=== PATIENT | female | born 1955 | race Caucasian/White ===

== ENCOUNTER 2016-06-04 00:46 | Observation (INO) | payer BC, OTHER ==
[2016-06-04] MEDS ORDERED: methylPREDNISolone NA SUCC 125 MG/2 ML VIAL IVPB ONE (01:14)
[2016-06-04] MEDS ORDERED: MAGNESIUM SULF 50% (8.12 MEQ/2 ML-1 GM VIAL) IVPB ONE (01:14)
[2016-06-04] MEDS ORDERED: ALBUTEROL SO4 2.5/IPRATROPIUM 0.5 INH SOL 3 ML VIAL.NEB. NEB STA ×2 (01:14)
--- NOTE | 2016-06-04 01:14 | PDOC ---
History of Present Illness - General History Source: Patient <David Torres - Last Filed: 06/04/16 02:44> - General History Source: Patient Exam Limitations: No Limitations - History of Present Illness Initial Comments: 06/04/16 01:33 The patient is a 60 year old female with significant past medical history of sarcoidosis, hypertension and hyperlipidemia who presents to the ED BIBA from home for SOB and wheezing just prior to arrival. Patient reports she was in her usual state of health when she was falling asleep and suddenly woke up with chest tightness and heard herself wheezing. She states using her inhaler with no improvement and decided to contact EMS. Patient was given an inhaler (prn) because she occasionally gets SOB secondary to her sarcoidosis. The patient denies fever, chills, cough, diaphoresis, and chest pain. The patient denies abdominal pain, nausea, vomiting, and diarrhea. Allergies: amoxicillin trihydrate, potassium clavulanate Social History: No alcohol, tobacco, or drug use reported. Past Surgical History: s/p pacemaker, left hip fx s/p repair PCP: Dr. Darryl Dennis <Candida Ren - Last Filed: 06/04/16 04:38> - General Chief Complaint: Asthma Stated Complaint: DIFF BREATHING Time Seen by Provider: 06/04/16 01:13 Past History - Past Medical History Anemia: No Asthma: No Cancer: No Cardiac Disorders: No CVA: No COPD: No CHF: No Dementia: No Diabetes: No GI Disorders: No Disorders: No HTN: Yes Hypercholesterolemia: Yes Liver Disease: No Seizures: No Thyroid Disease: No - Surgical History Abdominal Surgery: No Appendectomy: No Cardiac Surgery: Yes (defibulator - pacemaker) Cholecystectomy: No Lung Surgery: No Neurologic Surgery: No Orthopedic Surgery: Yes (fracture left hip) - Psycho/Social/Smoking Cessation Hx Suicidal Ideation: No Smoking History: Never smoked Have you smoked in the past 12 months: No Number of Cigarettes Smoked Daily: 0 Information on smoking cessation initiated: No Hx Alcohol Use: No Drug/Substance Use Hx: No <VladislavDavid zuñiga - Last Filed: 06/04/16 02:44> <Candida Ren - Last Filed: 06/04/16 04:38> - Past Medical History Allergies/Adverse Reactions: Allergies Allergy/AdvReac Type Severity Reaction Status Date / Time amoxicillin trihydrate AdvReac Severe Verified 02/08/15 09:55 [From Augmentin] potassium clavulanate AdvReac Severe Verified 02/08/15 09:55 [From Augmentin] Home Medications: Ambulatory Orders Acetazolamide 12.5 gm PO DAILY 02/15/15 Difluprednate [Durezol] 5 ml TID 02/15/15 Hydrochlorothiazide [Hctz -] 12.5 mg PO DAILY 02/15/15 Prednisone 5 mg PO BID 02/15/15 Tolterodine Tartrate 2 mg PO DAILY 02/15/15 Cetirizine HCl [Zyrtec -] 5 mg PO DAILY 03/08/15 Cholecalciferol (Vitamin D3) [Vitamin D3] 2,000 unit PO DAILY 03/08/15 Ibuprofen [Advil -] 2 tab PO Q6H 03/08/15 Iron 65 mg PO DAILY 03/29/15 Review of Systems - Review of Systems Able to Perform ROS?: Yes Comments:: 06/04/16 01:33 CONSTITUTIONAL: Absent: fever, no chills, no fatigue EYES: Absent: visual changes ENT: Absent: ear pain, no sore throat CARDIOVASCULAR: Absent: chest pain, no palpitations RESPIRATORY: +chest tightness, SOB, wheezing Absent: cough GI: Absent: abdominal pain, no nausea, no vomiting, no constipation, no diarrhea GENITOURINARY: Absent: dysuria, no frequency, no hematuria MUSCULOSKELETAL: Absent: back pain, no arthralgia, no myalgia SKIN: Absent: rash NEURO: Absent: headache <Candida Ren - Last Filed: 06/04/16 04:38> *Physical Exam - Vital Signs Last Vital Signs Temp Pulse Resp BP Pulse Ox 98.7 F 109 H 16 121/69 100 06/04/16 01:00 06/04/16 01:00 06/04/16 01:00 06/04/16 01:00 06/04/16 01:00 <David Torres - Last Filed: 06/04/16 02:44> - Vital Signs Last Vital Signs Temp Pulse Resp BP Pulse Ox 98.7 F 109 H 16 121/69 100 06/04/16 01:00 06/04/16 01:00 06/04/16 01:00 06/04/16 01:00 06/04/16 01:00 - Physical Exam Comments: 06/04/16 01:33 GENERAL: Well-appearing, well-nourished. No apparent distress. HEENT: Normocephalic, atraumatic. PERRL, EOM intact. CARDIOVASCULAR: Normal S1, S2. Regular rate and rhythm. PULMONARY: Mild respiratory distress. Mild conversational dyspnea. Diffuse bilateral wheezing. No retractions. ABDOMEN: Soft, non-distended, non-tender. EXTREMITIES: Normal ROM in all four extremities. No gross deformities. SKIN: Warm, dry. No rash NEUROLOGICAL: No focal neurological deficits. <Candida Ren - Last Filed: 06/04/16 04:38> Heart Score/ECG Review - ECG Impressions Comment:: 06/04/16 04:37 Atrial-sensed ventricular-paced rhythm @94bpm Abnormal ECG <Candida Ren - Last Filed: 06/04/16 04:38> ED Treatment Course - LABORATORY CBC & Chemistry Diagram: 06/04/16 01:23 06/04/16 01:23 <David Torres - Last Filed: 06/04/16 02:44> - LABORATORY CBC & Chemistry Diagram: 06/04/16 01:23 06/04/16 01:23 - RADIOLOGY Radiograph Interpretation: 06/04/16 02:40 EXAM: X-ray chest Reviewed by Imaging apron cleaner: FINDINGS: Heart size is not well evaluated on portable technique. Bipolar pacemaker and leads are noted. There is mild to moderate pulmonary edema. No focal consolidations or pleural effusion. IMPRESSION: Mild to moderate pulmonary edema. <Candida Ren - Last Filed: 06/04/16 04:38> Medical Decision Making - Medical Decision Making 06/04/16 02:44 Dr. Torres: The scribe's documentation has been prepared under my direction and personally reviewed by me in its entirery. I confirm that the note above accurately reflects all work, treatment, procedures, and medical decision making performed by me. Pt found to be in pulmonary edema on chest xray. Pt has never had fluid in her lung. Pt to be admitted to tele <David Torres - Last Filed: 06/04/16 02:44> *DC/Admit/Observation/Transfer - Discharge Dispostion Admit: Yes <David Torres - Last Filed: 06/04/16 02:44> - Attestations Scribe Attestion: 06/04/16 01:33 Documentation prepared by Candida Ren, acting as emergency medical technician for David Torres MD <Candida Ren - Last Filed: 06/04/16 04:38> Diagnosis at time of Disposition: Pulmonary edema Qualifiers: Chronicity: acute Qualified Code(s): J81.0 - Acute pulmonary edema - Referrals
[2016-06-04] MEDS ORDERED: MAGNESIUM SULF 50% (8.12 MEQ/2 ML-1 GM VIAL) ONE (01:28)
[2016-06-04] MEDS ORDERED: ALBUTEROL SO4 2.5/IPRATROPIUM 0.5 INH SOL 3 ML VIAL.NEB. NEB ONE (01:29)
[2016-06-04] MEDS ORDERED: methylPREDNISolone NA SUCC 125 MG/2 ML VIAL ONE (01:29)
[2016-06-04 01:41] LABS: BASOPHIL 0.6 % (0-2.0); EOSINOPHIL 0.7 % (0-4.5); MCH 24.7 pg (25.7-33.7); MCHC 31.6 g/dl (32.0-36.0); MEAN CELL VOLUME 78.2 fl (80-96); NEUTROPHILS 80.8 % (42.8-82.8); PLATELET COUNT 148 K/MM3 (134-434); RDW 18.7 % (11.6-15.6)
[2016-06-04 02:20] LABS: INR 1.11 (0.82-1.09); PROTHROMBIN TIME (PATIENT) 12.2 SEC (9.98-11.88)
[2016-06-04 02:30] LABS: ALBUMIN 3.2 g/dl (3.4-5.0); ANION GAP 10 (8-16); BILIRUBIN,TOTAL 0.4 mg/dL (0.2-1.0); CALCIUM 8.4 mg/dL (8.5-10.1); CO2 28 mmol/L (21-32); COCKROFT - GAULT 119.1785; CREATININE 0.7 mg/dL (0.55-1.02); GLUCOSE,RANDOM 104 mg/dL (74-106); SGOT/AST 27 U/L (15-37); SGPT/ALT 39 U/L (12-78); TOT PROT 6.4 g/dl (6.4-8.2)
[2016-06-04 02:33] LABS: ALK PHOS 114 U/L (45-117); TROPONIN I 0.12 ng/ml (0.00-0.05)
[2016-06-04] MEDS ORDERED: FUROSEMIDE 40 MG/4 ML INJECTABLE VIAL IVPUSH ONE (02:43)
[2016-06-04] MEDS ORDERED: FUROSEMIDE 40 MG/4 ML INJECTABLE VIAL ONE ×2 (03:00→21:46)
[2016-06-04] MEDS ORDERED: POTASSIUM CHLORIDE TABS 20 MEQ TABLET.ER (FP) PO ONE ×2 (03:05→03:24)
[2016-06-04] MEDS ORDERED: ENOXAPARIN NA (PORCINE) 80 MG/0.8 ML DISP.SYRIN SQ ONE ×2 (04:15→04:44)
--- NOTE | 2016-06-04 04:24 | HP ---
CHIEF COMPLAINT:SOB worsening 1-2 days PCP: HISTORY OF PRESENT ILLNESS: 60 year old female with history of sarcoidosis presents to the emergency department c/o 2 days history of worsening SOB associated with wheezing,leg edema and orthopnea. Denies chest pain . 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 She does not recall having recent cardiac workup or pulmonary function tests. Recent Travel: NO PAST MEDICAL HISTORY: Hyperlipidemia Sarcoidosis Cataracts Uveitis PAST SURGICAL HISTORY: PPM placement Cholecystectomy Social History: Smoking:NO Alcohol:NO Drugs: NO Family History: Allergies amoxicillin trihydrate [From Augmentin] Adverse Reaction (Severe, Verified 02/08 09:55) pt states - bells palsy after recieving medication potassium clavulanate [From Augmentin] Adverse Reaction (Severe, Verified 09:55) pt states - bells palsy after recieving medication HOME MEDICATIONS: Home Medications Medication Instructions Recorded Acetazolamide 12.5 gm PO DAILY 02/15/15 Difluprednate [Durezol] 5 ml TID 02/15/15 Hydrochlorothiazide [Hctz -] 12.5 mg PO DAILY 02/15/15 Prednisone 5 mg PO BID 02/15/15 Tolterodine Tartrate 2 mg PO DAILY 02/15/15 Cetirizine HCl [Zyrtec -] 5 mg PO DAILY 03/08/15 Cholecalciferol (Vitamin D3) 2,000 unit PO DAILY 03/08/15 [Vitamin D3] Ibuprofen [Advil -] 2 tab PO Q6H 03/08/15 Iron 65 mg PO DAILY 03/29/15 REVIEW OF SYSTEMS CONSTITUTIONAL: Absent: fever, chills, diaphoresis, generalized weakness, malaise, loss of appetite, weight change HEENT: Absent: rhinorrhea, nasal congestion, throat pain, throat swelling, difficulty swallowing, mouth swelling, ear pain, eye pain, visual changes CARDIOVASCULAR: Absent: chest pain, syncope, palpitations, irregular heart rate, lightheadedness , peripheral edema RESPIRATORY: Absent: cough, shortness of breath, dyspnea with exertion, orthopnea, wheezing, stridor, hemoptysis GASTROINTESTINAL: Absent: abdominal pain, abdominal distension, nausea, vomiting, diarrhea, constipation, melena, hematochezia GENITOURINARY: Absent: dysuria, frequency, urgency, hesitancy, hematuria, flank pain, genital pain MUSCULOSKELETAL: Absent: myalgia, arthralgia, joint swelling, back pain, neck pain SKIN: Absent: rash, itching, pallor HEMATOLOGIC/IMMUNOLOGIC: Absent: easy bleeding, easy bruising, lymphadenopathy, frequent infections ENDOCRINE: Absent: unexplained weight gain, unexplained weight loss, heat intolerance, cold intolerance NEUROLOGIC: Absent: headache, focal weakness or paresthesias, dizziness, unsteady gait, seizure, mental status changes, bladder or bowel incontinence PSYCHIATRIC: Absent: anxiety, depression, suicidal or homicidal ideation, hallucinations. PHYSICAL EXAMINATION Vital Signs - 24 hr 06/04/16 03:04 Pulse Rate [ 92 H Left] Respiratory 20 Rate Blood Pressure 111/81 [Left Arm] O2 Sat by Pulse 98 Oximetry (%) GENERAL: Awake, alert, and fully oriented, in no acute distress. HEAD: Normal with no signs of trauma. EYES: Pupils equal, round and reactive to light, extraocular movements intact, sclera anicteric, conjunctiva clear. No lid lag. EARS, NOSE, THROAT: Ears normal, nares patent, oropharynx clear without exudates. Moist mucous membranes. NECK: Normal range of motion, supple without lymphadenopathy, JVD, or masses. LUNGS: Breath sounds equal, clear to auscultation bilaterally. No wheezes, and no crackles. No accessory muscle use. HEART: Regular rate and rhythm, normal S1 and S2 without murmur, rub or gallop. ABDOMEN: Soft, nontender, not distended, normoactive bowel sounds, no guarding, no rebound, no masses. No hepatomegaly or splenomegaly. MUSCULOSKELETAL: Normal range of motion at all joints. No bony deformities or tenderness. No CVA tenderness. UPPER EXTREMITIES: 2+ pulses, warm, well-perfused. No cyanosis. No clubbing. No peripheral edema. LOWER EXTREMITIES: 2+ pulses, warm, well-perfused. No calf tenderness. 1 + edema b/l LE NEUROLOGICAL: Cranial nerves II-XII intact. Normal speech. Normal gait. PSYCHIATRIC: Cooperative. Good eye contact. Appropriate mood and affect. SKIN: Warm, dry, normal turgor, Abnormal Lab Results 06/04/16 06/04/16 01:23 01:23 MCV 78.2 L MCHC 31.6 L RDW 18.7 H D Sodium 146 H Potassium 3.4 L Chloride 108 H Calcium 8.4 L Troponin I 0.12 H B-Natriuretic Peptide 2680.42 H Albumin 3.2 L CXR shows b/l pulmonary vascular congestion EKG is pending ASSESSMENT/PLAN: 1. Dyspnea - likely secondary to pulmonary edema precipitated by acute on chronic diastolic dysfunction . No prior Echo available . Responded well to diuretics - C/w I&O - Echo - IV lasix -monitor BP q 4 hrs -cardiology evaluation - nebulizers 2. Elevated troponin - possibly secondary to CHF , EKG- paced rythm, no acute changes - f/u EKG - ASA - trend enzymes 3. History of sarcoidosis- no wheezing . Last follow up for PFT 8 years ago . - nebs PRN - outpatient follow up for PFT 4.DVT PPX - refused Lovenox Observation / Telemetry Visit type - Emergency Visit Emergency Visit: Yes ED Registration Date: 06/04/16 Care time: The patient presented to the Emergency Department on the above date and was hospitalized for further evaluation of their emergent condition. - New Patient This patient is new to me today: Yes Date on this admission: 06/04/16 - Critical Care Critical Care patient: No
[2016-06-04] MEDS ORDERED: ALBUTEROL SO4 2.5/IPRATROPIUM 0.5 INH SOL 3 ML VIAL.NEB. NEB PRN ×2 (04:28→05:19)
[2016-06-04] MEDS ORDERED: PATIENT'S OWN MEDICATION (NON-FORMULARY) (Difluprednate [Durezol] 5 ML) IO SCH (06:00)
--- NOTE | 2016-06-04 08:49 | CON.CARD ---
Consult - History of Present Illness History of Present Illness: The patient is a 60 year old female with significant past medical history of sarcoidosis, hypertension and hyperlipidemia who presents to the ED BIBA from home for SOB and wheezing just prior to arrival. Patient reports she was in her usual state of health when she was falling asleep and suddenly woke up with chest tightness and heard herself wheezing. She states using her inhaler with no improvement and decided to contact EMS. Patient was given an inhaler (prn) because she occasionally gets SOB secondary to her sarcoidosis. The patient denies fever, chills, cough, diaphoresis, and chest pain. The patient denies abdominal pain, nausea, vomiting, and diarrhea. Allergies: amoxicillin trihydrate, potassium clavulanate Social History: No alcohol, tobacco, or drug use reported. Past Surgical History: s/p pacemaker, left hip fx s/p repair PCP: Dr. Darryl Dennis - Alcohol/Substance Use Hx Alcohol Use: No - Smoking History Smoking history: Never smoked Have you smoked in the past 12 months: No Aproximately how many cigarettes per day: 0 Home Medications - Allergies Allergies/Adverse Reactions: Allergies Allergy/AdvReac Type Severity Reaction Status Date / Time amoxicillin trihydrate AdvReac Severe Verified 02/08/15 09:55 [From Augmentin] potassium clavulanate AdvReac Severe Verified 02/08/15 09:55 [From Augmentin] - Home Medications Home Medications: Ambulatory Orders Acetazolamide 12.5 gm PO DAILY 02/15/15 Difluprednate [Durezol] 5 ml TID 02/15/15 Hydrochlorothiazide [Hctz -] 12.5 mg PO DAILY 02/15/15 Prednisone 10 mg PO DAILY 02/15/15 Tolterodine Tartrate 2 mg PO DAILY 02/15/15 Cetirizine HCl [Zyrtec -] 5 mg PO DAILY 03/08/15 Cholecalciferol (Vitamin D3) [Vitamin D3] 2,000 unit PO DAILY 03/08/15 Ibuprofen [Advil -] 2 tab PO Q6H 03/08/15 Iron 65 mg PO DAILY 03/29/15 Panexitrol 1 tab PO DAILY 06/04/16 Vital Signs: Vital Signs Temperature 98.1 F 06/04/16 06:06 Pulse Rate 88 06/04/16 06:06 Respiratory Rate 17 06/04/16 06:06 Blood Pressure 135/73 06/04/16 06:06 O2 Sat by Pulse Oximetry (%) 99 06/04/16 06:06 - Other Data Labs, Other Data: INR, PTT INR 1.11 (0.82-1.09) 06/04/16 01:23
[2016-06-04] MEDS ORDERED: TOLTERODINE TARTRATE 2 MG TABLET PO SCH ×2 (10:00)
[2016-06-04] MEDS ORDERED: predniSONE 5 MG TABLET (UD) PO SCH (10:00)
[2016-06-04] MEDS ORDERED: methylPREDNISolone NA SUCC 40 MG/1 ML VIAL ONE ×2 (10:19→19:15)
[2016-06-04] MEDS: methylPREDNISolone NA SUCC 40 MG/1 ML VIAL IVPB SCH ×2 (10:44→19:12)
[2016-06-04] MEDS: ASPIRIN 81 MG CHEWABLE TABLETS PO SCH (10:44)
--- NOTE | 2016-06-04 11:32 | PN ---
Progress Note (short form) - Note Progress Note: went to see the patient in the ER. Patient states dr. Loving is her defective cigarette slitter and would like to see him. Consultation order was placed with dr. Fabienne RICE
--- NOTE | 2016-06-04 12:58 | CON.CARD ---
Consult Consult Specialty:: Cardiology Referred by:: Hospitalist Medicine Reason for Consultation:: CHF - History of Present Illness Chief Complaint: Dyspnea History of Present Illness: 60 year old female with history of sarcoidosis with uveitis, syncope referable to [place] s/p Medtronic ICD, mod MVP with mod MR, TR and mod-severe LV systolic dysfunction presents to the emergency department c/o 2 days history of worsening SOB associated with wheezing, leg edema, exercise intolerance and orthopnea. Denies chest pain, near or true syncope, palpitations, PND. 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 She does not recall having recent cardiac workup or pulmonary function tests, no ICD discharge, generator change 1 year ago. She has been taking ibuprofen q4 and admits to dietary indiscretion. Recent Travel: NO PAST MEDICAL HISTORY: systolic dysfunction Sarcoidosis Cataracts Uveitis PAST SURGICAL HISTORY: PPM placement Cholecystectomy Social History: Smoking:NO Alcohol:NO Drugs: NO Family History: Allergies amoxicillin trihydrate [From Augmentin] Adverse Reaction (Severe, Verified 02/08 09:55) pt states - bells palsy after recieving medication potassium clavulanate [From Augmentin] Adverse Reaction (Severe, Verified 09:55) pt states - bells palsy after recieving medication - History Source History Provided By: Patient Limitations to Obtaining History: No Limitations - Past Medical History Cardio/Vascular: Yes: CHF, HTN Pulmonary: Yes: Other (Sarcoid) - Past Surgical History Past Surgical History: Yes: Permanent Pacemaker - Alcohol/Substance Use Hx Alcohol Use: No - Smoking History Smoking history: Never smoked Have you smoked in the past 12 months: No Aproximately how many cigarettes per day: 0 Home Medications - Allergies Allergies/Adverse Reactions: Allergies Allergy/AdvReac Type Severity Reaction Status Date / Time amoxicillin trihydrate AdvReac Severe Verified 02/08/15 09:55 [From Augmentin] potassium clavulanate AdvReac Severe Verified 02/08/15 09:55 [From Augmentin] - Home Medications Home Medications: Ambulatory Orders Acetazolamide 12.5 gm PO DAILY 02/15/15 Difluprednate [Durezol] 5 ml TID 02/15/15 Hydrochlorothiazide [Hctz -] 12.5 mg PO DAILY 02/15/15 Prednisone 10 mg PO DAILY 02/15/15 Tolterodine Tartrate 2 mg PO DAILY 02/15/15 Cetirizine HCl [Zyrtec -] 5 mg PO DAILY 03/08/15 Cholecalciferol (Vitamin D3) [Vitamin D3] 2,000 unit PO DAILY 03/08/15 Ibuprofen [Advil -] 2 tab PO Q6H 03/08/15 Iron 65 mg PO DAILY 03/29/15 Panexitrol 1 tab PO DAILY 06/04/16 Review of Systems - Review of Systems Cardiovascular: reports: Edema Respiratory: reports: Exercise Intolerance, SOB on Exertion Vital Signs: Vital Signs Temperature 98.1 F 06/04/16 06:06 Pulse Rate 88 06/04/16 06:06 Respiratory Rate 17 06/04/16 06:06 Blood Pressure 135/73 06/04/16 06:06 O2 Sat by Pulse Oximetry (%) 99 06/04/16 06:06 Constitutional: Yes: No Distress, Calm Neck: Yes: Supple Respiratory: Yes: Regular, Dullness, On Nasal O2 Gastrointestinal: Yes: Normal Bowel Sounds, Soft, Abdomen, Obese Cardiovascular: Yes: Regular Rate and Rhythm JVD: No Carotid Bruit: No Heart Sounds: Yes: S1, S2 Murmur: Yes: Systolic Murmur, Grade 2 Edema: Yes Edema: LLE: 2+, RLE: 2+ - Other Data Labs, Other Data: INR, PTT INR 1.11 (0.82-1.09) 06/04/16 01:23 Troponin, BNP 06/04/16 08:15 Troponin I 0.10 H Troponin, BNP 06/04/16 08:15 Troponin I 0.10 H A-sensed V-paced @ 94 similar to previous 04/2015 Ejection Fraction %: LVEF < 40 % Imaging - Results Chest X-ray: Report Reviewed (Prominent pulmonary vasculature) Problem List - Problems (1) Acute on chronic systolic (congestive) heart failure Code(s): I50.23 - ACUTE ON CHRONIC SYSTOLIC (CONGESTIVE) HEART FAILURE (2) Sarcoidosis Code(s): D86.9 - SARCOIDOSIS, UNSPECIFIED (3) Hypertensive cardiomyopathy Code(s): I11.9 - HYPERTENSIVE HEART DISEASE WITHOUT HEART FAILURE I42.9 - CARDIOMYOPATHY, UNSPECIFIED Qualifiers: Heart failure presence: with heart failure Qualified Code(s): I11.0 - Hypertensive heart disease with heart failure (4) Mitral valvular prolapse Code(s): I34.1 - NONRHEUMATIC MITRAL (VALVE) PROLAPSE (5) Presence of single implantable cardioverter-defibrillator (ICD) Code(s): Z95.810 - PRESENCE OF AUTOMATIC (IMPLANTABLE) CARDIAC DEFIBRILLATOR (6) Subendocardial ischemia Code(s): I24.8 - OTHER FORMS OF ACUTE ISCHEMIC HEART DISEASE (7) Non-compliance Code(s): Z91.19 - PATIENT'S NONCOMPLIANCE W OTH MEDICAL TREATMENT AND REGIMEN Assessment/Plan 1. Acute on chronic systolic failure and subendocardial ischemic injury in context of NSAID, med, diet indiscretion 2. Sarcoidosis of heart post Medtronic ICD and generator change 1 year ago 3. HTN/HCVD 4. MVP with MR P:1. Echocardiogram to assess LV and valve fxn, check 2. Interrogate ICD, if chronically RV paced, would benefit from upgrade to FLOOR SANDER- D which would also decrease severity of MR 3. IV diuresis and add Aldactone 25 qd with monitor diuretic response, renal fxn and electrolytes, replete K 4. Resume carvedilol 3.125 bid, Altace 2.5 qd with uptitration as hemodynamics tolerate 5. Pulm f/u for sarcoid management, continue chronic steroids, emphasize importance of compliance and f/u 6. Thank you for consultative opportunity
[2016-06-04 14:09] VITALS: BMI 34.7
--- NOTE | 2016-06-04 14:16 | CON.PULM ---
Consult - History of Present Illness Chief Complaint: Shortness of breath History of Present Illness: 60 year old female with acute onset severe shortness of breath and wheezing. Pt was diagnosed with sarcoidosis in 2000-had bronchoscopy. Pt originally presented with neurological symptoms and uveitis. Pt not seen for for more than 5 yeas. She has been maintained on Prednisone 10 mg daily by her neurologist and management manager though recently attempts at weaning off Prednisone have been started. PMH CHB s/p Medtronic ICD, mod MVP with mod MR, TR and mod-severe LV systolic dysfunction - Past Medical History Cardio/Vascular: Yes: CHF, HTN Pulmonary: Yes: Other (Sarcoid) ...: No - Past Surgical History Past Surgical History: Yes: Permanent Pacemaker - Alcohol/Substance Use Hx Alcohol Use: No - Smoking History Smoking history: Never smoked Have you smoked in the past 12 months: No Aproximately how many cigarettes per day: 0 If you are a former smoker, when did you quit?: 36 YRS AGO Home Medications - Allergies Allergies/Adverse Reactions: Allergies Allergy/AdvReac Type Severity Reaction Status Date / Time amoxicillin trihydrate AdvReac Severe Verified 02/08/15 09:55 [From Augmentin] potassium clavulanate AdvReac Severe Verified 02/08/15 09:55 [From Augmentin] - Home Medications Home Medications: Ambulatory Orders Acetazolamide 12.5 gm PO DAILY 02/15/15 Difluprednate [Durezol] 1 drop OU BID 02/15/15 Hydrochlorothiazide [Hctz -] 12.5 mg PO DAILY 02/15/15 Prednisone 10 mg PO DAILY 02/15/15 Tolterodine Tartrate 2 mg PO DAILY 02/15/15 Cetirizine HCl [Zyrtec -] 5 mg PO DAILY 03/08/15 Cholecalciferol (Vitamin D3) [Vitamin D3] 2,000 unit PO DAILY 03/08/15 Ibuprofen [Advil -] 2 tab PO Q6H 03/08/15 Iron 65 mg PO DAILY 03/29/15 Atorvastatin Ca [Lipitor] 20 mg PO HS 06/04/16 Carvedilol 3.125 mg PO BID 06/04/16 Gabapentin 200 mg PO HS 06/04/16 Omeprazole 20 mg PO BID 06/04/16 Panexitrol 1 tab PO DAILY 06/04/16 Ramipril 1.25 mg PO DAILY 06/04/16 Physical Exam Vital Sings: Vital Signs Temperature 98.5 F 06/04/16 12:40 Pulse Rate 90 06/04/16 12:40 Respiratory Rate 20 06/04/16 12:40 Blood Pressure 127/52 06/04/16 12:40 O2 Sat by Pulse Oximetry (%) 95 06/04/16 12:40 Constitutional: Yes: No Distress Eyes: No: Sclera Icterus HENT: Yes: Atraumatic, Normocephalic Neck: Yes: Supple, Trachea Midline Cardiovascular: Yes: Regular Rate and Rhythm. No: JVD Respiratory: Yes: CTA Bilaterally ...Percussion: No: Dullnes, Hyperresonance ...Clubbing: No Gastrointestinal: Yes: Soft. No: Hepatomegaly, Splenomegaly, Tenderness Edema: LLE: 2+, RLE: 2+ Neurological: Yes: Alert, Oriented Imaging - Results Chest X-ray: Report Reviewed, Image Reviewed (Diffuse intersitial changes, AICD) Problem List - Problems (1) Acute on chronic systolic (congestive) heart failure Code(s): I50.23 - ACUTE ON CHRONIC SYSTOLIC (CONGESTIVE) HEART FAILURE (2) Presence of single implantable cardioverter-defibrillator (ICD) Code(s): Z95.810 - PRESENCE OF AUTOMATIC (IMPLANTABLE) CARDIAC DEFIBRILLATOR (3) Pulmonary edema Code(s): J81.1 - CHRONIC PULMONARY EDEMA Qualifiers: Chronicity: acute Qualified Code(s): J81.0 - Acute pulmonary edema (4) Sarcoidosis Code(s): D86.9 - SARCOIDOSIS, UNSPECIFIED Assessment/Plan 60 year old female with CHF/pulmonary edema. AICD. 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 Respiratory involvement has been mild over the years. Pt improving post diuresis. Suggest Bedside spirometry with full PFT as an outpt Treatment of CHF with Lasix and current medications Monitoring of cardiac ischemia and monitor for arrhythmias Albuterol PRN Maintain SaO2 >90 Prednisone-taper when medically stable Thank you for referring this patient for consultation.
--- NOTE | 2016-06-04 14:16 | EKG ---
Test Reason : Blood Pressure : / mmHG Vent. Rate : 094 BPM Atrial Rate : 094 BPM P-R Int : 160 ms QRS Dur : 156 ms QT Int : 436 ms P-R-T Axes : 087 -45 038 degrees QTc Int : 545 ms POOR DATA QUALITY, INTERPRETATION MAY BE ADVERSELY AFFECTED Atrial-sensed ventricular-paced rhythm ABNORMAL ECG WHEN COMPARED WITH ECG OF 15-JAN-2009 21:40, ELECTRONIC VENTRICULAR PACEMAKER HAS REPLACED SINUS RHYTHM Confirmed by CECILIA SALAS MD ([id number]) on 06/04/2016 2:15:44 PM Referred By: Confirmed By:CECILIA SALAS MD
[2016-06-04] MEDS ORDERED: CARVEDILOL 3.125 MG TABLET (FP) ONE (14:31)
[2016-06-04] MEDS ORDERED: SPIRONOLACTONE 25 MG TABLET (FP) ONE (14:32)
[2016-06-04] MEDS: SPIRONOLACTONE 25 MG TABLET (FP) PO SCH (14:44)
[2016-06-04] MEDS: CARVEDILOL 3.125 MG TABLET (FP) PO SCH (14:45)
[2016-06-04] MEDS: RAMIPRIL 2.5 MG CAPSULE (FP) PO SCH (15:55)
[2016-06-04 21:25] LABS: COCKROFT - GAULT 104.2865; CREATININE 0.8 mg/dL (0.55-1.02)
[2016-06-04] MEDS: FUROSEMIDE 40 MG/4 ML INJECTABLE VIAL IVPB SCH (21:39)
[2016-06-05 02:19] LABS: THYROID STIMULATING HORMONE 0.41 uIU/ml (0.358-3.74); TROPONIN I 0.06 ng/ml (0.00-0.05)
[2016-06-05] MEDS: methylPREDNISolone NA SUCC 40 MG/1 ML VIAL IVPB SCH ×2 (03:37→10:18)
[2016-06-05] MEDS ORDERED: methylPREDNISolone NA SUCC 40 MG/1 ML VIAL ONE (03:57)
[2016-06-05] MEDS: CARVEDILOL 3.125 MG TABLET (FP) PO SCH ×3 (07:00→22:58)
[2016-06-05 07:42] LABS: MCH 24.7 pg (25.7-33.7); MCHC 31.6 g/dl (32.0-36.0); MEAN CELL VOLUME 78.2 fl (80-96); MEAN PLT VOLUME 9.6 fl (7.5-11.1); PLATELET COUNT 155 K/MM3 (134-434); RDW 18.2 % (11.6-15.6); WHITE BLOOD COUNT 12.4 K/mm3 (4.0-10.0)
[2016-06-05 08:06] LABS: ALBUMIN 3.5 g/dl (3.4-5.0); ANION GAP 9 (8-16); BILIRUBIN,TOTAL 0.3 mg/dL (0.2-1.0); CALCIUM 8.7 mg/dL (8.5-10.1); CO2 25 mmol/L (21-32); COCKROFT - GAULT 104.2865; CREATININE 0.8 mg/dL (0.55-1.02); GLUCOSE,RANDOM 131 mg/dL (74-106); SGOT/AST 11 U/L (15-37); SGPT/ALT 33 U/L (12-78); TOT PROT 6.7 g/dl (6.4-8.2)
[2016-06-05 08:07] LABS: ALK PHOS 98 U/L (45-117)
[2016-06-05] MEDS: ASPIRIN 81 MG CHEWABLE TABLETS PO SCH (10:17)
[2016-06-05] MEDS: SPIRONOLACTONE 25 MG TABLET (FP) PO SCH (10:17)
[2016-06-05] MEDS: RAMIPRIL 2.5 MG CAPSULE (FP) PO SCH (10:17)
[2016-06-05] MEDS: FUROSEMIDE 40 MG/4 ML INJECTABLE VIAL IVPB SCH (10:18)
--- NOTE | 2016-06-05 11:17 | PN ---
Progress Note, Physician History of Present Illness: Dyspnea on exertion, LE edema and orthopnea improving with diuresis. - Current Medication List Current Medications: Active Medications Acetazolamide (Diamox -) 125 mg PO DAILY [facility] Last Admin: 06/04/16 10:44 Dose: 125 mg Albuterol/Ipratropium (Duoneb -) 1 amp NEB Q6H PRN PRN Reason: SHORTNESS OF BREATH Albuterol/Ipratropium (Duoneb -) 1 amp NEB Q6H PRN PRN Reason: SHORTNESS OF BREATH Aspirin (Asa -) 81 mg PO DAILY [facility] Last Admin: 06/04/16 10:44 Dose: 81 mg Carvedilol (Coreg -) 3.125 mg PO BID [facility] Last Admin: 06/05/16 07:00 Dose: Not Given Furosemide (Lasix Injection -) 40 mg IVPB DAILY [facility] Last Admin: 06/04/16 21:39 Dose: 40 mg Methylprednisolone Sodium Succinate (Solu-Medrol -) 40 mg IVPB Q8H-IV [facility] Last Admin: 06/05/16 03:37 Dose: 40 mg Non-Formulary Medication (Difluprednate [Durezol]) 5 ml IO TID [facility] Ramipril (Altace -) 2.5 mg PO DAILY [facility] Last Admin: 06/04/16 15:55 Dose: 2.5 mg Spironolactone (Aldactone -) 25 mg PO DAILY [facility] Last Admin: 06/04/16 14:44 Dose: 25 mg Tolterodine Tartrate (Detrol -) 2 mg PO DAILY [facility] - Objective Vital Signs: Vital Signs Temperature 98.1 F 06/05/16 10:00 Pulse Rate 82 06/05/16 10:00 Respiratory Rate 19 06/05/16 10:00 Blood Pressure 118/63 06/05/16 10:00 O2 Sat by Pulse Oximetry (%) 99 06/05/16 06:58 Constitutional: Yes: No Distress, Calm Neck: Yes: Supple Cardiovascular: Yes: Regular Rate and Rhythm, Murmur (2/6 SM) Respiratory: Yes: Regular, Diminished, On Nasal O2 Gastrointestinal: Yes: Normal Bowel Sounds, Soft, Abdomen, Obese Edema: Yes Edema: LLE: 1+, RLE: 1+ Labs: CBC, BMP 06/05/16 06:53 06/05/16 06:53 INR, PTT INR 1.11 (0.82-1.09) 06/04/16 01:23 Problem List - Problems (1) Sarcoidosis Code(s): D86.9 - SARCOIDOSIS, UNSPECIFIED (2) Hypertensive cardiomyopathy Code(s): I11.9 - HYPERTENSIVE HEART DISEASE WITHOUT HEART FAILURE I42.9 - CARDIOMYOPATHY, UNSPECIFIED Qualifiers: Heart failure presence: with heart failure Qualified Code(s): I11.0 - Hypertensive heart disease with heart failure (3) Mitral valvular prolapse Code(s): I34.1 - NONRHEUMATIC MITRAL (VALVE) PROLAPSE (4) Presence of single implantable cardioverter-defibrillator (ICD) Code(s): Z95.810 - PRESENCE OF AUTOMATIC (IMPLANTABLE) CARDIAC DEFIBRILLATOR (5) Subendocardial ischemia Code(s): I24.8 - OTHER FORMS OF ACUTE ISCHEMIC HEART DISEASE (6) Non-compliance Code(s): Z91.19 - PATIENT'S NONCOMPLIANCE W OTH MEDICAL TREATMENT AND REGIMEN (7) Acute on chronic diastolic (congestive) heart failure Code(s): I50.33 - ACUTE ON CHRONIC DIASTOLIC (CONGESTIVE) HEART FAILURE (8) Severe mitral regurgitation Code(s): I34.0 - NONRHEUMATIC MITRAL (VALVE) INSUFFICIENCY Assessment/Plan 06/04/2016 Echo: Mildly dilated with mod cLVH, normal LV fxn with basal septal AK , mild biatrial enlargement, severe posterior directed MR suggestive of anterior leaflet pathology, mod-severe TR, mild PA 1. Acute on chronic systolic failure and subendocardial ischemic injury in context of NSAID, med, diet indiscretion improving 2. Sarcoidosis of heart post Medtronic ICD and generator change 1 year ago 3. HTN/HCVD 4. MVP with severe posterior MR P: 1. F/u ICD interrogation, if chronically RV paced, would benefit from upgrade to INTERNAL CORROSION SPECIALIST-D 2. Lasix 40 IV qd, Diamox 125 qd and Aldactone 25 qd with monitor diuretic response, renal fxn and electrolytes, replete K 3. Resume carvedilol 3.125 bid, Altace 2.5 qd with uptitration as hemodynamics tolerate 4. BD, steroids, dedside spirometry with full PFT as an outpt, O2 to maintain SaO2 >90%, emphasize importance of compliance and f/u 5. Eventual w/u for MV repair
--- NOTE | 2016-06-05 15:20 | PN ---
Physical Exam: SUBJECTIVE: Patient seen and examined sitting on edge of bed eating dinner. SOB much improved. OBJECTIVE: Vital Signs Period Temp Pulse Resp BP Sys/Zayas Pulse Ox Last 24 Hr 97.9 F-98.4 F 78-88 18-78 109-133/49-74 96-100 GENERAL: The patient is awake, alert, and fully oriented, in no acute distress. HEAD: Normal with no signs of trauma. EYES: PERRL, extraocular movements intact, sclera anicteric, conjunctiva clear. No ptosis. LUNGS: Breath sounds equal, clear to auscultation bilaterally, no wheezes, no crackles, no accessory muscle use. HEART: Regular rate and rhythm, S1, S2 without murmur, rub or gallop. ABDOMEN: Soft, nontender, nondistended, normoactive bowel sounds, no guarding, no rebound EXTREMITIES: 2+ RLE edema, 1+LLE edema; abrasions; scabbed wound right heel NEUROLOGICAL: Cranial nerves II through XII grossly intact. Normal speech, gait not observed. Laboratory Results - last 24 hr 06/04/16 06/05/16 06/05/16 20:18 01:17 06:53 WBC RBC Hgb Hct MCV MCHC RDW Plt Count MPV Sodium 145 Potassium 4.0 Chloride 111 H Carbon Dioxide 25 Anion Gap 9 BUN 17 Creatinine 0.8 Creat Clearance w eGFR Random Glucose 114 H Hemoglobin A1c % 6.0 D Calcium 9.0 Total Bilirubin AST ALT Alkaline Phosphatase Creatine Kinase 42 Troponin I 0.06 H Total Protein Albumin Triglycerides 80 Cholesterol 139 Total LDL Cholesterol 65 HDL Cholesterol 61 H TSH 0.41 06/05/16 06/05/16 06:53 06:53 WBC 12.4 H D RBC 4.33 Hgb 10.7 Hct 33.9 MCV 78.2 L MCHC 31.6 L RDW 18.2 H Plt Count 155 MPV 9.6 Sodium 145 Potassium 3.7 Chloride 111 H Carbon Dioxide 25 Anion Gap 9 BUN 24 H D Creatinine 0.8 Creat Clearance w eGFR > 60 Random Glucose 131 H Hemoglobin A1c % Calcium 8.7 Total Bilirubin 0.3 D AST 11 L D ALT 33 Alkaline Phosphatase 98 Creatine Kinase Troponin I Total Protein 6.7 Albumin 3.5 Triglycerides Cholesterol Total LDL Cholesterol HDL Cholesterol TSH Active Medications Generic Name Dose Route Start Last Admin Trade Name Freq PRN Reason Stop Dose Admin Acetazolamide 125 mg 06/04/16 10:00 06/05/16 10:18 Diamox - PO 125 mg DAILY [facility] Administration Albuterol/Ipratropium 1 amp 06/04/16 04:28 Duoneb - NEB Q6H PRN SHORTNESS OF BREATH Albuterol/Ipratropium 1 amp 06/04/16 05:19 Duoneb - NEB Q6H PRN SHORTNESS OF BREATH Aspirin 81 mg 06/04/16 10:00 06/05/16 10:17 Asa - PO 81 mg DAILY [facility] Administration Carvedilol 3.125 mg 06/04/16 14:00 06/05/16 10:17 Coreg - PO 3.125 mg BID [facility] Administration Furosemide 40 mg 06/04/16 20:00 06/05/16 10:18 Lasix Injection - IVPB 40 mg DAILY [facility] Administration Methylprednisolone Sodium Succinate 40 mg 06/04/16 10:00 06/05/16 10:18 Solu-Medrol - IVPB 40 mg Q8H-IV [facility] Administration Non-Formulary Medication 5 ml 06/04/16 06:00 Difluprednate [Durezol] IO TID [facility] Ramipril 2.5 mg 06/04/16 14:00 06/05/16 10:17 Altace - PO 2.5 mg DAILY [facility] Administration Spironolactone 25 mg 06/04/16 14:00 06/05/16 10:17 Aldactone - PO 25 mg DAILY [facility] Administration Tolterodine Tartrate 2 mg 06/04/16 10:00 Detrol - PO DAILY [facility] ASSESSMENT/PLAN 60 year-old woman with a PMH of systolic heart failure s/p AICD, sarcoidosis with cerebral and ocular involvement. Admitted for acute heart failure exacerbation. Acute on chronic systolic heart failure Subendocardial ischemic injury Sarcoidosis of the heart s/p AICD --06/04 Echo: Mildly dilated with mod cLVH, normal LV fxn with basal septal AK , mild biatrial enlargement, severe posterior directed MR suggestive of anterior leaflet pathology, mod-severe TR, mild [place] --troponins mildly elevated, downward trending --get ICD interrogation; if chronically RV paced, would benefit from upgrade to PRINCIPAL ARCHITECTURAL FIRM-D --diurese with lasix, diamox, aldactone MVP with severe mitral regurgitation --eventual workup for MV repair Hypertension --continue carvedilol, altace; uptitrate as tolerated Sarcoidosis with lung involvement --steroid taper --maintain O2 >90% --albuterol nebs PRN F/E/N Fluids: patient has numerous water bottles/pitchers/drinks; fluid restrict 1L Electrolytes: replete as indicated Nutrition: diabetic low sodium DVT prophylaxis: lovenox, oob, ambulation PT evaluation/daily PT Dispo: continues to require inpatient care. Full Code. Visit type - Emergency Visit Emergency Visit: Yes ED Registration Date: 06/04/16 Care time: The patient presented to the Emergency Department on the above date and was hospitalized for further evaluation of their emergent condition. - New Patient This patient is new to me today: Yes Date on this admission: 06/05/16 - Critical Care Critical Care patient: No
--- NOTE | 2016-06-05 17:43 | PN ---
Progress Note, Physician History of Present Illness: Dyspnea decreased. No chest pain. - Current Medication List Current Medications: Active Medications Acetazolamide (Diamox -) 125 mg PO DAILY [facility] Last Admin: 06/05/16 10:18 Dose: 125 mg Albuterol/Ipratropium (Duoneb -) 1 amp NEB Q6H PRN PRN Reason: SHORTNESS OF BREATH Albuterol/Ipratropium (Duoneb -) 1 amp NEB Q6H PRN PRN Reason: SHORTNESS OF BREATH Aspirin (Asa -) 81 mg PO DAILY [facility] Last Admin: 06/05/16 10:17 Dose: 81 mg Carvedilol (Coreg -) 3.125 mg PO BID [facility] Last Admin: 06/05/16 10:17 Dose: 3.125 mg Furosemide (Lasix Injection -) 40 mg IVPB DAILY [facility] Last Admin: 06/05/16 10:18 Dose: 40 mg Methylprednisolone Sodium Succinate (Solu-Medrol -) 40 mg IVPB Q8H-IV [facility] Last Admin: 06/05/16 10:18 Dose: 40 mg Non-Formulary Medication (Difluprednate [Durezol]) 5 ml IO TID [facility] Ramipril (Altace -) 2.5 mg PO DAILY [facility] Last Admin: 06/05/16 10:17 Dose: 2.5 mg Spironolactone (Aldactone -) 25 mg PO DAILY [facility] Last Admin: 06/05/16 10:17 Dose: 25 mg Tolterodine Tartrate (Detrol -) 2 mg PO DAILY [facility] - Objective Vital Signs: Vital Signs Temperature 97.9 F 06/05/16 17:05 Pulse Rate 82 06/05/16 17:05 Respiratory Rate 18 06/05/16 17:05 Blood Pressure 127/68 06/05/16 17:05 O2 Sat by Pulse Oximetry (%) 100 06/05/16 14:00 Constitutional: Yes: No Distress Eyes: No: Sclera Icterus Neck: Yes: Supple, Trachea Midline Cardiovascular: Yes: Regular Rate and Rhythm. No: JVD Respiratory: Yes: CTA Bilaterally Gastrointestinal: Yes: Soft. No: Tenderness Extremities: No: Calf Tenderness Edema: No Edema: LLE: 1+, RLE: 1+ Labs: CBC, BMP 06/05/16 06:53 06/05/16 06:53 INR, PTT INR 1.11 (0.82-1.09) 06/04/16 01:23 Problem List - Problems (1) Presence of single implantable cardioverter-defibrillator (ICD) Code(s): Z95.810 - PRESENCE OF AUTOMATIC (IMPLANTABLE) CARDIAC DEFIBRILLATOR (2) Pulmonary edema Code(s): J81.1 - CHRONIC PULMONARY EDEMA Qualifiers: Chronicity: acute Qualified Code(s): J81.0 - Acute pulmonary edema (3) Sarcoidosis Code(s): D86.9 - SARCOIDOSIS, UNSPECIFIED Assessment/Plan 60 year old female with CHF/pulmonary edema. AICD. 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 Respiratory involvement has been mild over the years. Pt improving post diuresis. Respiratory staus improved. Suggest Bedside spirometry with full PFT as an outpt Treatment of CHF with Lasix and current medications Monitoring of cardiac ischemia and monitor for arrhythmias Albuterol PRN Maintain SaO2 >90 Steroid taper: pt switched to Prednisone 30 mg daily.
[2016-06-06 07:35] LABS: BASOPHIL 0.2 % (0-2.0); EOSINOPHIL 0.2 % (0-4.5); MCH 25.2 pg (25.7-33.7); MCHC 32.5 g/dl (32.0-36.0); MEAN CELL VOLUME 77.5 fl (80-96); MEAN PLT VOLUME 9.2 fl (7.5-11.1); NEUTROPHILS 80.8 % (42.8-82.8); PLATELET COUNT 159 K/MM3 (134-434); RDW 18.4 % (11.6-15.6); WHITE BLOOD COUNT 10.9 K/mm3 (4.0-10.0)
[2016-06-06 08:01] LABS: ALBUMIN 3.3 g/dl (3.4-5.0); ANION GAP 9 (8-16); CALCIUM 8.5 mg/dL (8.5-10.1); CO2 27 mmol/L (21-32); COCKROFT - GAULT 104.2865; CREATININE 0.8 mg/dL (0.55-1.02); GLUCOSE,RANDOM 86 mg/dL (74-106); MAGNESIUM 2.3 mg/dL (1.8-2.4); SGOT/AST 7 U/L (15-37); SGPT/ALT 26 U/L (12-78)
[2016-06-06 08:06] LABS: ALK PHOS 89 U/L (45-117); BILIRUBIN,TOTAL 0.4 mg/dL (0.2-1.0); TOT PROT 6.2 g/dl (6.4-8.2)
[2016-06-06] MEDS ORDERED: PT OWN MED DRAWER 7, Y5N ONE (09:23)
[2016-06-06] MEDS: ASPIRIN 81 MG CHEWABLE TABLETS PO SCH (09:42)
[2016-06-06] MEDS: FUROSEMIDE 40 MG/4 ML INJECTABLE VIAL IVPB SCH (09:45)
--- NOTE | 2016-06-06 09:59 | PN ---
Progress Note, Physician History of Present Illness: Dyspnea on exertion, LE edema and orthopnea improving with diuresis. - Current Medication List Current Medications: Active Medications Acetazolamide (Diamox -) 125 mg PO DAILY [facility] Last Admin: 06/05/16 10:18 Dose: 125 mg Albuterol/Ipratropium (Duoneb -) 1 amp NEB Q6H PRN PRN Reason: SHORTNESS OF BREATH Aspirin (Asa -) 81 mg PO DAILY [facility] Last Admin: 06/06/16 09:42 Dose: 81 mg Carvedilol (Coreg -) 3.125 mg PO BID [facility] Last Admin: 06/05/16 22:58 Dose: 3.125 mg Enoxaparin Sodium (Lovenox -) 40 mg SQ DAILY [facility] Last Admin: 06/06/16 09:47 Dose: Not Given Furosemide (Lasix Injection -) 40 mg IVPB DAILY [facility] Last Admin: 06/06/16 09:45 Dose: 40 mg Non-Formulary Medication (Difluprednate [Durezol]) 5 ml IO TID [facility] Prednisone (Deltasone -) 30 mg PO DAILY [facility] Last Admin: 06/06/16 09:42 Dose: 30 mg Ramipril (Altace -) 2.5 mg PO DAILY [facility] Last Admin: 06/05/16 10:17 Dose: 2.5 mg Spironolactone (Aldactone -) 25 mg PO DAILY [facility] Last Admin: 06/05/16 10:17 Dose: 25 mg Tolterodine Tartrate (Detrol -) 2 mg PO DAILY [facility] - Objective Vital Signs: Vital Signs Temperature 98.1 F 06/06/16 06:00 Pulse Rate 74 06/06/16 06:00 Respiratory Rate 18 06/06/16 06:00 Blood Pressure 107/61 06/06/16 06:00 O2 Sat by Pulse Oximetry (%) 98 06/05/16 22:00 Constitutional: Yes: No Distress, Calm Neck: Yes: Supple Cardiovascular: Yes: Regular Rate and Rhythm, Murmur (2/6 SM) Respiratory: Yes: Regular, Diminished Gastrointestinal: Yes: Normal Bowel Sounds, Soft Edema: Yes Edema: LLE: 1+, RLE: 1+ Labs: CBC, BMP 06/06/16 06:00 06/06/16 06:00 INR, PTT INR 1.11 (0.82-1.09) 06/04/16 01:23 Problem List - Problems (1) Sarcoidosis Code(s): D86.9 - SARCOIDOSIS, UNSPECIFIED (2) Hypertensive cardiomyopathy Code(s): I11.9 - HYPERTENSIVE HEART DISEASE WITHOUT HEART FAILURE I42.9 - CARDIOMYOPATHY, UNSPECIFIED Qualifiers: Heart failure presence: with heart failure Qualified Code(s): I11.0 - Hypertensive heart disease with heart failure (3) Mitral valvular prolapse Code(s): I34.1 - NONRHEUMATIC MITRAL (VALVE) PROLAPSE (4) Presence of single implantable cardioverter-defibrillator (ICD) Code(s): Z95.810 - PRESENCE OF AUTOMATIC (IMPLANTABLE) CARDIAC DEFIBRILLATOR (5) Subendocardial ischemia Code(s): I24.8 - OTHER FORMS OF ACUTE ISCHEMIC HEART DISEASE (6) Non-compliance Code(s): Z91.19 - PATIENT'S NONCOMPLIANCE W OTH MEDICAL TREATMENT AND REGIMEN (7) Acute on chronic diastolic (congestive) heart failure Code(s): I50.33 - ACUTE ON CHRONIC DIASTOLIC (CONGESTIVE) HEART FAILURE (8) Severe mitral regurgitation Code(s): I34.0 - NONRHEUMATIC MITRAL (VALVE) INSUFFICIENCY Assessment/Plan 06/04/2016 Echo: Mildly dilated with mod cLVH, normal LV fxn with basal septal AK , mild biatrial enlargement, severe posterior directed MR suggestive of anterior leaflet pathology, mod-severe TR, mild [place] 1. Acute on chronic systolic failure and subendocardial ischemic injury in context of NSAID, med, diet indiscretion improving 2. Sarcoidosis of heart post Medtronic ICD and generator change 1 year ago 3. HTN/HCVD 4. MVP with severe posterior MR suggestive of anterior leaflet pathology P: 1. 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 Change Lasix 40 po qd, Diamox 125 qd and Aldactone 25 qd with monitor diuretic response, renal fxn and electrolytes, 3. Continue carvedilol 3.125 bid, Altace 2.5 qd with uptitration as hemodynamics tolerate 4. BD, oral steroids, bedside spirometry reviewed with full PFT as an outpt, O2 to maintain SaO2 >90%, emphasize importance of compliance and f/u 5. Eventual w/u for MV repair, ambulate, d/c planning with f/u with Drs. Loving and Rishi
[2016-06-06] MEDS ORDERED: ENOXAPARIN NA (PORCINE) 40 MG/0.4 ML DISP.SYRIN SQ SCH (10:00)
[2016-06-06] MEDS ORDERED: predniSONE 10 MG TABLET (UD) PO SCH (10:00)
[2016-06-06] MEDS ORDERED: CARVEDILOL 3.125 MG TABLET (FP) PO SCH ×2 (10:03→10:20)
[2016-06-06] MEDS: RAMIPRIL 2.5 MG CAPSULE (FP) PO SCH (10:25)
[2016-06-06] MEDS: CARVEDILOL 3.125 MG TABLET (FP) PO SCH (10:25)
[2016-06-06] MEDS: SPIRONOLACTONE 25 MG TABLET (FP) PO SCH (10:25)
[2016-06-06 11:53] VITALS: BP 98/47; PULSE 83; TEMP 98.4
[2016-06-07] MEDS ORDERED: FUROSEMIDE 40 MG TABLET (FP) PO SCH (10:00)
== END 2016-06-06 14:00 | disposition home or self-care (01) ==
LOC: JER 00:46 → JERBED 02:41 → J4S 06-05 16:40
PROVIDERS: ADMIT Internal Medicine; ATTEND Nurse Practitioner Acute Care
PROC: 3E0333Z Introduction of Anti-inflammatory into Peripheral Vein, Percutaneous Approach (ICD-10-PCS; principal; 2016-06-04)
PROC: 3E033GC Introduction of Other Therapeutic Substance into Peripheral Vein, Percutaneous Approach (ICD-10-PCS; 2016-06-04)
PROC: 3E013GC Introduction of Other Therapeutic Substance into Subcutaneous Tissue, Percutaneous Approach (ICD-10-PCS; 2016-06-04)
PROC: 3E0F7GC Introduction of Other Therapeutic Substance into Respiratory Tract, Via Natural or Artificial Opening (ICD-10-PCS; 2016-06-04)
PROC: 3E0F7GC Introduction of Other Therapeutic Substance into Respiratory Tract, Via Natural or Artificial Opening (ICD-10-PCS; 2016-06-04)
DX: I11.0 Hypertensive heart disease with heart failure (principal); I50.23 Acute on chronic systolic (congestive) heart failure; J81.0 Acute pulmonary edema; D86.9 Sarcoidosis, unspecified; I24.8 Other forms of acute ischemic heart disease; I42.9 Cardiomyopathy, unspecified; I34.0 Nonrheumatic mitral (valve) insufficiency; I34.1 Nonrheumatic mitral (valve) prolapse; E78.5 Hyperlipidemia, unspecified; Z95.810 Presence of automatic (implantable) cardiac defibrillator; Z91.19 Patient's noncompliance with other medical treatment and regimen
CPT/HCPCS: 36415; 71010-TC; 80048; 80053; 80061; 82550; 83036; 83721; 83735; 83880; 84443; 84484; 85025; 85027; 85610; 93005; 93010; 93306-TC; 99285-25; G0378

== ENCOUNTER 2016-11-14 11:04 | Inpatient (IN) | payer BC, OTHER ==
--- NOTE | 2016-11-14 12:08 | PDOC ---
History of Present Illness - General History Source: Patient Exam Limitations: No Limitations - History of Present Illness Initial Comments: 11/14/16 12:54 The patient is a 61 year old female, with significant past medical history of CAD s/p pacemaker and valve replacements, sarcoidosis, CHF, HTN, and HLD, who presents to the emergency room complaining of 3 days of a constant, dull, frontal headache and 2 weeks of varying high and low blood pressure. The patient explains that her visiting nurse advised her to visit the ER after she heard about her headache. When the headache is at its worse, it is an 8/10 in severity. Her blood pressure was 188/104 at its highest. She visited her group worker in the office last week and her blood pressure was normal. Denies chest pain, SOB, cough. Denies fever, chills, nausea, vomiting. Denies neck pain. Denies LE swelling. Allergies: Amoxicillin trihydrate, potassium clavulanate Social hx: Former tobacco use. No alcohol or drug use. PCP: Dr. Darryl Dennis 11/14/16 14:09 <Loreto De Los Santos - Last Filed: 11/14/16 14:09> <Xochilt Bui - Last Filed: 11/15/16 16:44> - General Chief Complaint: Blood Pressure Problem Stated Complaint: BLOOD PRESSURE Time Seen by Provider: 11/14/16 11:31 NIH Stroke Scale - Last Known Well Date/Time & Onset Date Last Known Well: 11/11/16 - Initial Evaluation Level of consciousness: Alert Ask patient the month and their age: Answers both correctly Ask patient to open & close eyes; make fist and let go: Obeys both correctly Best gaze (horizontal eye movement): Normal Visual field testing: No visual field loss Facial paresis (Show teeth/raise eyebrows/close eyes tight): Normal symmetrical movement Motor Function: Left Arm: Normal Motor Function: Right Arm: Normal (extends arm 90 (or 45) degrees for 10 seconds without drift Motor Function: Left Leg: Normal (extends leg 30 degrees for 5 seconds without drift) Motor Function: Right Leg: Normal (extends leg 30 degrees for 5 seconds without drift) Limb Ataxia: No ataxia Sensory(Use pinprick test arms,legs,trunk,face/side to side): Normal Best language (Describe picture, name items, read sentences): No Aphasia Dysarthria (read several words): Normal articulation Extinction and Inattention: No abnormality - Total Score NIH Stroke Scale Score: 0 <Xochilt Bui - Last Filed: 11/15/16 16:44> Past History <MagaliLoreto - Last Filed: 11/14/16 14:09> - Past Medical History Anemia: No Asthma: No Cancer: No Cardiac Disorders: No CVA: No COPD: No CHF: No Dementia: No Diabetes: No GI Disorders: No Disorders: No HTN: Yes Hypercholesterolemia: Yes Liver Disease: No Seizures: No Thyroid Disease: No - Surgical History Abdominal Surgery: No Appendectomy: No Cardiac Surgery: Yes (defibulator - pacemaker, bypass) Cholecystectomy: Yes Lung Surgery: No Neurologic Surgery: No Orthopedic Surgery: Yes (fracture left hip) - Suicide/Smoking/Psychosocial Hx Smoking History: Former smoker Have you smoked in the past 12 months: No Number of Cigarettes Smoked Daily: 0 If you are a former smoker, when did you quit?: 37yrs ago Information on smoking cessation initiated: No Hx Alcohol Use: No Drug/Substance Use Hx: No Substance Use Type: None Hx Substance Use Treatment: No <Xochilt Bui - Last Filed: 11/15/16 16:44> - Past Medical History Allergies/Adverse Reactions: Allergies Allergy/AdvReac Type Severity Reaction Status Date / Time amoxicillin trihydrate AdvReac Severe Verified 11/14/16 11:22 [From Augmentin] potassium clavulanate AdvReac Severe Verified 11/14/16 11:22 [From Augmentin] Home Medications: Ambulatory Orders Difluprednate [Durezol] 1 drop OU BID 02/15/15 Prednisone 10 mg PO DAILY 02/15/15 Tolterodine Tartrate 2 mg PO DAILY 02/15/15 Cholecalciferol (Vitamin D3) [Vitamin D3] 2,000 unit PO DAILY 03/08/15 Atorvastatin Ca [Lipitor] 20 mg PO HS 06/04/16 Carvedilol 3.125 mg PO BID 06/04/16 Omeprazole 20 mg PO BID 06/04/16 Ramipril 1.25 mg PO DAILY 06/04/16 Furosemide [Lasix -] 40 mg PO DAILY #30 tablet 06/06/16 Acetaminophen [Tylenol Extra Strength] 500 mg PO PRN PRN 06/24/16 Aspirin [Ecotrin] 81 mg PO DAILY 06/24/16 Cetirizine HCl [Zyrtec -] 10 mg PO DAILY 06/24/16 Review of Systems - Review of Systems Able to Perform ROS?: Yes Comments:: 11/14/16 12:54 GENERAL/CONSTITUTIONAL: No fever or chills. No weakness. HEAD, EYES, EARS, NOSE AND THROAT: No change in vision. No ear pain or discharge. No sore throat. GASTROINTESTINAL: No nausea, vomiting, diarrhea or constipation. GENITOURINARY: No dysuria, frequency, or change in urination. CARDIOVASCULAR: No chest pain or shortness of breath. RESPIRATORY: No cough, wheezing, or hemoptysis. MUSCULOSKELETAL: No joint or muscle swelling or pain. No neck or back pain. SKIN: No rash NEUROLOGIC: +headache. No vertigo, loss of consciousness, or change in strength/ sensation. ENDOCRINE: No increased thirst. No abnormal weight change. HEMATOLOGIC/LYMPHATIC: No anemia, easy bleeding, or history of blood clots. ALLERGIC/IMMUNOLOGIC: No hives or skin allergy. <Loreto De Los Santos - Last Filed: 11/14/16 14:09> *Physical Exam - Vital Signs Last Vital Signs Temp Pulse Resp BP Pulse Ox 97.9 F 87 20 102/55 99 11/14/16 11:15 11/14/16 11:15 11/14/16 11:15 11/14/16 11:15 11/14/16 11:15 - Physical Exam Comments: 11/14/16 12:54 GENERAL: Awake, alert, and fully oriented, in no acute distress HEAD: No signs of trauma EYES: PERRLA, EOMI, sclera anicteric, conjunctiva clear ENT: Auricles normal inspection, hearing grossly normal, nares patent, oropharynx clear without exudates. Moist mucosa NECK: Normal ROM, supple, no lymphadenopathy, JVD, or masses LUNGS: Breath sounds equal, clear to auscultation bilaterally. No wheezes, and no crackles HEART: Regular rate and rhythm, normal S1 and S2, no murmurs, rubs or gallops ABDOMEN: Soft, nontender, normoactive bowel sounds. No guarding, no rebound. No masses EXTREMITIES: Normal range of motion, no edema. No clubbing or cyanosis. No cords, erythema, or tenderness NEUROLOGICAL: Cranial nerves II through XII grossly intact. Normal speech, normal gait SKIN: Warm, Dry, normal turgor, no rashes or lesions noted. <Loreto De Los Santos - Last Filed: 11/14/16 14:09> - Vital Signs Last Vital Signs Temp Pulse Resp BP Pulse Ox 97.9 F 87 20 102/55 99 11/14/16 11:15 11/14/16 11:15 11/14/16 11:15 11/14/16 11:15 11/14/16 11:15 <Xochilt Bui - Last Filed: 11/15/16 16:44> ED Treatment Course - LABORATORY CBC & Chemistry Diagram: 11/14/16 12:15 11/14/16 12:15 - ADDITIONAL ORDERS Additional order review: Laboratory Results 11/14/16 11/14/16 11/14/16 12:22 12:15 12:15 PT with INR 12.40 H INR 1.12 Sodium 141 Potassium 5.2 H D Chloride 105 Carbon Dioxide 28 Anion Gap 8 BUN 16 Creatinine 0.9 D Creat Clearance w eGFR > 60 Random Glucose 89 Lactic Acid 1.8 Calcium 8.8 Total Bilirubin 0.7 ALT 22 D Alkaline Phosphatase 105 Troponin I 0.02 Total Protein 7.1 Albumin 3.5 11/14/16 12:15 RBC 4.25 MCV 78.8 L MCHC 31.1 L RDW 18.1 H MPV 9.1 Neutrophils % 81.1 Lymphocytes % 8.0 Monocytes % 9.3 Eosinophils % 1.0 D Basophils % 0.6 - RADIOLOGY Radiograph Interpretation: 11/14/16 14:09 EXAM#: TYPE/EXAM: RESULT: [id number] CT/HEAD CT WITHOUT CONTRAST EXAM: CT HEAD WITHOUT CONTRAST COMPARISON: 11/09/[address] FINDINGS: There is a focus of acute hemorrhage in the superior left cerebellum (sagittal image 21 and axial image 10 of series 2), which measures up to 0.5 x 0.5 cm. There is no mass effect, midline shift or herniation pattern. There is relatively advanced cerebral volume loss for stated age, with secondary prominence of the CSF spaces, similar to the immediate prior head CT. There is no hydrocephalus. There is no compelling evidence of acute transcortical infarction. There is confluent hypoattenuation in the deep cerebral white matter and patchy hypoattenuation in the gangliocapsular regions and subcortical cerebral white matter, similar to the prior head CT, most likely reflecting moderate microvascular ischemic changes. There is dense calcific atherosclerosis along bilateral internal carotid artery siphons. The calvarium is intact. The visualized paranasal sinuses and mastoid air cells are clear. Status post cataract surgery. IMPRESSION: 1. A 0.5 x 0.5 cm focus of acute hemorrhage in the superior left cerebellum without mass effect, midline shift or herniation pattern. The etiology of this acute hemorrhage is likely due to hypertension. 2. Moderate microvascular ischemic changes in the cerebral white matter and the gangliocapsular regions, similar to 11/09/[address] 3. Relatively advanced cerebral volume loss for stated age, similar to 2014. No hydrocephalus. Dr. Bui, the emergency department physician, is aware of these findings at the time of this dictation. Reported By: Trey Garcias MD 11/14/16 1403 <Loreto De Los Santos - Last Filed: 11/14/16 14:09> - LABORATORY CBC & Chemistry Diagram: 11/15/16 06:00 11/15/16 06:00 <Xochilt Bui - Last Filed: 11/15/16 16:44> Medical Decision Making - Medical Decision Making Case d/w Dr. Long via phone. Will evaluate. Recommended repeat CTH in 24 hours. No intervention at present. <Xochilt Bui - Last Filed: 11/15/16 16:44> *DC/Admit/Observation/Transfer - Attestations Scribe Attestion: 11/14/16 12:55 Documentation prepared by VETO Martinez, acting as medical secretary receptionist for Xochilt Bui MD. <Loreto De Los Santos - Last Filed: 11/14/16 14:09> - Discharge Dispostion Admit: Yes <Xochilt Bui - Last Filed: 11/15/16 16:44> Diagnosis at time of Disposition: Intracranial hemorrhage - Discharge Dispostion Condition at time of disposition: Guarded - Referrals
[2016-11-14 12:21] LABS: BASOPHIL 0.6 % (0-2.0); MCH 24.5 pg (25.7-33.7); MCHC 31.1 g/dl (32.0-36.0); MEAN CELL VOLUME 78.8 fl (80-96); MEAN PLT VOLUME 9.1 fl (7.5-11.1); NEUTROPHILS 81.1 % (42.8-82.8); PLATELET COUNT 200 K/MM3 (134-434); RDW 18.1 % (11.6-15.6); WHITE BLOOD COUNT 9.8 K/mm3 (4.0-10.0)
[2016-11-14 12:35] LABS: INR 1.12 (0.82-1.09); PROTHROMBIN TIME (PATIENT) 12.4 SEC (9.98-11.88)
[2016-11-14 12:39] LABS: ALBUMIN 3.5 g/dl (3.4-5.0); ANION GAP 8 (8-16); CALCIUM 8.8 mg/dL (8.5-10.1); CO2 28 mmol/L (21-32); GLUCOSE,RANDOM 89 mg/dL (74-106)
[2016-11-14 12:43] LABS: BILIRUBIN,TOTAL 0.7 mg/dL (0.2-1.0); CREATININE 0.9 mg/dL (0.55-1.02); SGPT/ALT 22 U/L (12-78); TOT PROT 7.1 g/dl (6.4-8.2)
[2016-11-14 12:46] LABS: ALK PHOS 105 U/L (45-117); TROPONIN I 0.02 ng/ml (0.00-0.05)
[2016-11-14 13:04] LABS: CPK 193 IU/L (26-192); SGOT/AST 45 U/L (15-37)
--- NOTE | 2016-11-14 16:09 | PN ---
Progress Note (short form) - Note Progress Note: NEUROSURGERY CONSULT DICTATED Chart reviewed Pt examined D/w Cardiology Family at bedside 61 LH female w h/o CAD s/p AICD and valve replacements, sarcoidosis, CHF, HTN, and HLD, who presents to the emergency room complaining of 3 days of a constant , dull, frontal headache and 2 weeks of fluctuating BP. The headache is rated an 8/10 in severity. She visited her harness worker in the office last week and her blood pressure was normal. No diplopia, ataxia or N/V. PE; 98.6, 123/69 HEENT- NC/AT; Neck- supple; Cor- Irreg; Chest- clear B; Abd-obese, benign; Ext- no sign of DVT A/A/Ox4 CN- intact; Motor- 5/5 B UE/LE without drift; Sensation- intact LT/vibration; DTR- 1+; Gait- stable; Cerebellar- intact FTN B Platelet 200, INR 1.[address]- atrophy; periventricular small vessel dz; small 5x 5 mm round hyperdensity L superior cerebellum with no edema/mass effect; ccnp HCP Probable small L cerebellar hypertensive bleed BP monitoring and control SBP 100-160 range Hold AC and ASA/NSAIDS for one week Repeat head CT within 24 hours to ascertain stability No neurosurgical intervention indicated or recommended at this time
[2016-11-14 19:18] VITALS: BMI 33.6
--- NOTE | 2016-11-14 19:23 | HP ---
CHIEF COMPLAINT: Headache x 3 days HISTORY OF PRESENT ILLNESS: 61 year-old female with a PMH significant for HTN, HLD, CAD s/p AICD, MV replacement ([place], 2016), systolic heart failure, and sarcoidosis. Presented to the ED with a complaint of a 3-day headache: frontal, dull and constant. Patient also reported labile BP readings over the past 2 weeks, the highest 188/104. She visited her day light relief operator in the office last week and her blood pressure was normal. Patient denied chest pain, SOB, cough; fever, chills , nausea, vomiting; neck pain. Patient has chronic, mild RLE edema. Social hx: Former tobacco use. No alcohol or drug use. PCP: Dr. Darryl Dennis PAST MEDICAL HISTORY: Hypertension Hyperlipidemia CAD Systolic heart failure Sarcoidosis Cataracts Uveitis PAST SURGICAL HISTORY: PPM/AICD Cholecystectomy Recent Travel: No Smoking: former smoker Alcohol: no Drugs: no Family History: non-contributory Allergies amoxicillin trihydrate [From Augmentin] Adverse Reaction (Severe, Verified 11/14 11:22) pt states - bells palsy after recieving medication potassium clavulanate [From Augmentin] Adverse Reaction (Severe, Verified 11:22) pt states - bells palsy after recieving medication HOME MEDICATIONS: Home Medications Medication Instructions Recorded Difluprednate [Durezol] 1 drop OU BID 02/15/15 Prednisone 10 mg PO DAILY 02/15/15 Tolterodine Tartrate 2 mg PO DAILY 02/15/15 Cholecalciferol (Vitamin D3) 2,000 unit PO DAILY 03/08/15 [Vitamin D3] Atorvastatin Ca [Lipitor] 20 mg PO HS 06/04/16 Carvedilol 3.125 mg PO BID 06/04/16 Omeprazole 20 mg PO BID 06/04/16 Ramipril 1.25 mg PO DAILY 06/04/16 Furosemide [Lasix -] 40 mg PO DAILY #30 tablet 06/06/16 Acetaminophen [Tylenol Extra 500 mg PO PRN PRN 06/24/16 Strength] Aspirin [Ecotrin] 81 mg PO DAILY 06/24/16 Cetirizine HCl [Zyrtec -] 10 mg PO DAILY 06/24/16 REVIEW OF SYSTEMS CONSTITUTIONAL: Absent: fever, chills, diaphoresis, generalized weakness, malaise, loss of appetite, weight change HEENT: Absent: rhinorrhea, nasal congestion, throat pain, throat swelling, difficulty swallowing, mouth swelling, ear pain, eye pain, visual changes CARDIOVASCULAR: Absent: chest pain, syncope, palpitations, irregular heart rate, lightheadedness , peripheral edema RESPIRATORY: Absent: cough, shortness of breath, dyspnea with exertion, orthopnea, wheezing, stridor, hemoptysis GASTROINTESTINAL: Absent: abdominal pain, abdominal distension, nausea, vomiting, diarrhea, constipation, melena, hematochezia GENITOURINARY: Absent: dysuria, frequency, urgency, hesitancy, hematuria, flank pain, genital pain MUSCULOSKELETAL: Absent: myalgia, arthralgia, joint swelling, back pain, neck pain SKIN: Absent: rash, itching, pallor HEMATOLOGIC/IMMUNOLOGIC: Absent: easy bleeding, easy bruising, lymphadenopathy, frequent infections ENDOCRINE: Absent: unexplained weight gain, unexplained weight loss, heat intolerance, cold intolerance NEUROLOGIC: Present: headache Absent: focal weakness or paresthesias, dizziness, unsteady gait, seizure, mental status changes, bladder or bowel incontinence PSYCHIATRIC: Absent: anxiety, depression, suicidal or homicidal ideation, hallucinations. PHYSICAL EXAMINATION Vital Signs - 24 hr 11/14/16 11/14/16 17:15 18:31 Temperature 97.7 F Pulse Rate 110 H Pulse Rate [ 97 H Apical] Respiratory 20 18 Rate Blood Pressure 124/77 Blood Pressure 101/74 [Left Arm] O2 Sat by Pulse 99 98 Oximetry (%) GENERAL: Awake, alert, and fully oriented, in no acute distress. HEAD: Normal with no signs of trauma. EYES: Pupils equal, round and reactive to light, extraocular movements intact, sclera anicteric, conjunctiva clear. No ptosis. EARS, NOSE, THROAT: Ears normal, nares patent, oropharynx clear without exudates. Moist mucous membranes. NECK: Normal range of motion, supple without lymphadenopathy, JVD, or masses. LUNGS: Breath sounds equal, clear to auscultation bilaterally. No wheezes, and no crackles. No accessory muscle use. HEART: Regular rate and rhythm, normal S1 and S2 ABDOMEN: Soft, nontender, not distended, normoactive bowel sounds, no guarding, no rebound, no masses. No hepatomegaly or splenomegaly. MUSCULOSKELETAL: Normal range of motion at all joints. No bony deformities or tenderness. No CVA tenderness. UPPER EXTREMITIES: 2+ pulses, warm, well-perfused. No cyanosis. No clubbing. No peripheral edema. LOWER EXTREMITIES: 2+ pulses, warm, well-perfused. Right leg mildly swollen, mild erythema, tender NEUROLOGICAL: Cranial nerves II-XII intact. Normal speech. Normal gait. PSYCHIATRIC: Cooperative. Good eye contact. Appropriate mood and affect. ASSESSMENT/PLAN: 61 year-old woman with a PMH of HTN, HLD, CAD s/p AICD, MV replacement ([place] , 2016), systolic heart failure, and sarcoidosis. Presented with a 3-day headache and found to have a probable small left cerebellar hypertensive bleed. Left cerebellar hypertensive bleed --seen on CT imaging; will get repeat scan 24 hours from first --no focal deficits; seen and evaluated by neurosurgeon Dr. Long, no surgical intervention at this time --BP systolic goal 100-->160 --continue lisinopril, carvedilol, lasix Chronic systolic heart failure --continue lisinopril, carvedilol, lasix Sarcoidosis with lung involvement --stable Right lower extremity swelling and tenderness --this is chronic and mild --duplex negative for DVT DVT prophylaxis: hold chemical prophylaxis due to bleeding; SCDs, oob, early ambulation Visit type - Emergency Visit Emergency Visit: Yes ED Registration Date: 11/15/16 Care time: The patient presented to the Emergency Department on the above date and was hospitalized for further evaluation of their emergent condition. - New Patient This patient is new to me today: Yes Date on this admission: 11/16/16 - Critical Care Critical Care patient: No
[2016-11-14] MEDS: ACETAMINOPHEN WITH CODEINE 300MG/30MG TABLET PO PRN (19:58)
[2016-11-14] MEDS ORDERED: DIFLUPREDNATE OU SCH (22:00)
[2016-11-14] MEDS: ATORVASTATIN CA 20 MG TABLET (FP) PO SCH (22:49)
--- NOTE | 2016-11-15 07:09 | CONS ---
DATE OF CONSULTATION: REQUESTING PHYSICIAN: Xochilt Bui MD of the emergency department. CHIEF COMPLAINT: Headaches of 3-days' duration. HISTORY OF PRESENT ILLNESS: The patient is a 61-year-old left handed female with a history of coronary artery disease, cardiac valve replacement, sarcoidosis, pacemaker and AICD placement, hypertension, and hypercholesterolemia who complains of a 3- day history of constant, dull, frontal headache and a 1-[id number] of fluctuating blood pressure levels. Her headache has become severe at times. She did not have any associated nausea, vomiting, diplopia, dizziness, or ataxia. She was visiting her sister and was found to have high blood pressure at highest of about 180/104. Her blood pressure was normal last week by report. Presently, the patient denies any new neurological symptoms. She has no photophobia or nuchal rigidity. Her headache has subsided slightly. Her blood pressure has been normal in the emergency room. PAST MEDICAL HISTORY: Significant for hypertension, coronary artery disease, valve replacement, AICD placement, pacemaker placement, hypercholesterolemia, sarcoidosis on chronic steroids. MEDICATIONS: Current medications include prednisone, vitamin D3, Lipitor, Coreg , omeprazole, ramipril, Lasix, type 2, baby aspirin, Zyrtec, Durezol, and tolterodine. ALLERGIES: AUGMENTIN. SOCIAL HISTORY: She does not smoke or drink much alcohol. She is not working. She lives at home. FAMILY HISTORY: Noncontributory. REVIEW OF SYSTEMS: Otherwise negative for other major constitutional, head, neck, cardiovascular, pulmonary, gastrointestinal, genitourinary, endocrinologic, neurologic, or psychological problems except for the above. PHYSICAL EXAMINATION: Vital Signs: Temperature 98.2, blood pressure 123/69 with pulse rate 88, O2 saturation 99% on room air. HEENT: Shows her to be normocephalic, atraumatic, anicteric. Neck: Supple with no carotid bruits. Coronary: Demonstrates irregular rhythm. Chest Wall: She has a midline scar with an AICD on the top as well as a left- sided cardiac pacemaker scar. There is a midline sternotomy incision as well. Lungs: Clear to auscultation bilaterally. Abdomen: Benign. She is mildly obese. Extremities: Shows no sign of DVT. Neurologic: She is awake, alert, and oriented x4. Cranial nerve examination is intact 2-12. Motor examination shows 5/5 strength without a drift. Sensory examination is intact to light touch and vibratory sensation. Deep tendon reflexes are hyporeflexive throughout. There are no pathologic long tract sign. Gait is normal. Cerebellar examination demonstrates intact [id number] examination bilaterally. LABORATORY DATA: Laboratory examination shows INR to be 1.12, white blood cell count 9.8, hemoglobin 10.4, platelet count 200,000. BUN 16, creatinine 0.9. Sodium 141. Troponin 0.02. CT scan of the head done earlier this afternoon demonstrated moderate cerebral atrophy. There is moderate periventricular small vessel disease. There is a 4- mm x 5-mm small hyperdensity in the superior left cerebellum. There is no associated mass affect or edema. There is no hydrocephalus. The overall finding is consistent with a prior CT scan of November 09, 2004. Only the small left superior cerebellar hyperdensity/hemorrhage is new. IMPRESSION: 1. Probable acute left superior cerebellar hypertensive hemorrhage. 2. Hypertension, coronary artery disease, valve replacement status post automatic implantable cardiovascular defibrillator and pacemaker placement. 3. Sarcoidosis on chronic steroids. 4. Hypercholesterolemia. RECOMMENDATIONS: The patient presents with a 3-day history of headache. She has no focal neurological deficit on my examination today. She also has no other signs of increased intracranial pressure such as nausea or vomiting. She has no hydrocephalus nor any significant cerebellar signs. No neurosurgical intervention is indicated nor recommended at this time as a result. Any aspirin or anticoagulant including NSAIDs should be held for at least 1 week. In the meantime, repeat head CT scan is recommended within 24 hours to ascertain stability of the appearance on the CAT scan. If clinically indicated, she could be restarted on the aspirin after a week. Since the bleed is relatively small, one does expect that to remain relatively stable as long as one can monitor and control blood pressure as appropriate. The above was discussed with the patient and her family at bedside in the emergency department. Her care was also reviewed with the cardiology team. Patient understands her diagnosis and treatment plans. She will try to reduce stress level, lose weight and better control her blood pressure. KIM MONTANO M.D. [id number] MTDD
[2016-11-15 08:07] LABS: BASOPHIL 0.8 % (0-2.0); EOSINOPHIL 1.6 % (0-4.5); MCH 24.7 pg (25.7-33.7); MCHC 31.5 g/dl (32.0-36.0); MEAN CELL VOLUME 78.4 fl (80-96); MEAN PLT VOLUME 9.4 fl (7.5-11.1); NEUTROPHILS 80.4 % (42.8-82.8); PLATELET COUNT 196 K/MM3 (134-434); RDW 17.8 % (11.6-15.6); WHITE BLOOD COUNT 10.8 K/mm3 (4.0-10.0)
[2016-11-15] MEDS ORDERED: PT OWN MED DRAWER 7, Y5N ONE (08:08)
[2016-11-15 08:22] LABS: INR 1.14 (0.82-1.09); PROTHROMBIN TIME (PATIENT) 12.6 SEC (9.98-11.88)
[2016-11-15 08:25] LABS: ACTIVATED PTT 25.4 SECONDS (26.9-34.4)
[2016-11-15 08:50] LABS: CALCIUM 9.1 mg/dL (8.5-10.1)
[2016-11-15 08:57] LABS: ALBUMIN 3.7 g/dl (3.4-5.0); ALK PHOS 108 U/L (45-117); ANION GAP 9 (8-16); BILIRUBIN,TOTAL 0.6 mg/dL (0.2-1.0); CO2 29 mmol/L (21-32); CREATININE 0.9 mg/dL (0.55-1.02); GLUCOSE,RANDOM 94 mg/dL (74-106); MAGNESIUM 2.2 mg/dL (1.8-2.4); PHOSPHOROUS 4.4 mg/dL (2.5-4.9); SGOT/AST 12 U/L (15-37); SGPT/ALT 20 U/L (12-78); TOT PROT 6.9 g/dl (6.4-8.2)
--- NOTE | 2016-11-15 09:46 | EKG ---
Test Reason : Blood Pressure : / mmHG Vent. Rate : 083 BPM Atrial Rate : 083 BPM P-R Int : 000 ms QRS Dur : 158 ms QT Int : 432 ms P-R-T Axes : 000 -51 117 degrees QTc Int : 507 ms AV dual-paced rhythm WITH OCCASIONAL ventricular-paced complexes ABNORMAL ECG Confirmed by MD TERESA, JAS ([id number]) on 11/15/2016 9:46:22 AM Referred By: Confirmed By:JAS MOORE MD
[2016-11-15] MEDS: predniSONE 5 MG TABLET (UD) PO SCH (09:49)
[2016-11-15] MEDS: CARVEDILOL 3.125 MG TABLET (FP) PO SCH ×2 (09:50→21:26)
[2016-11-15] MEDS: RAMIPRIL 1.25 MG CAPSULE PO SCH (09:50)
[2016-11-15] MEDS ORDERED: FUROSEMIDE 40 MG TABLET (FP) PO SCH (10:00)
[2016-11-15] MEDS ORDERED: TOLTERODINE TARTRATE 2 MG TABLET PO SCH ×2 (10:00)
--- NOTE | 2016-11-15 12:14 | PN ---
Progress Note (short form) - Note Progress Note: Chief Complaint: Events noted, notes reviewed, denies any chest pain or dyspnea , headaches reported which currently has resolved History of Present Illness: Seen and examined om telemetry. Full consult dictated - Current Medication List Current Medications Acetaminophen/Codeine Phosphate (Tylenol # 3 -) 1 tab PO Q6H PRN PRN Reason: HEADACHE Last Admin: 11/14/16 19:58 Dose: 1 tab Atorvastatin Calcium (Lipitor -) 20 mg PO HS [facility] Last Admin: 11/14/16 22:49 Dose: 20 mg Carvedilol (Coreg -) 3.125 mg PO BID [facility] Last Admin: 11/15/16 09:50 Dose: 3.125 mg Furosemide (Lasix -) 40 mg PO DAILY [facility] Last Admin: 11/15/16 09:50 Dose: 40 mg Non-Formulary Medication (Difluprednate [Durezol]) 1 drop OU BID [facility] Prednisone (Deltasone -) 10 mg PO DAILY [facility] Last Admin: 11/15/16 09:49 Dose: 10 mg Ramipril (Altace -) 1.25 mg PO DAILY [facility] Last Admin: 11/15/16 09:50 Dose: Not Given Tolterodine Tartrate (Detrol -) 2 mg PO DAILY [facility] Review of Systems - Review of Systems Constitutional: no symptoms reported Respiratory: denies: Cough or Sputum Production Cardiovascular: as noted above Gastrointestinal: denies Nausea, Vomiting, Diarrhea, Constipation or Abdominal Pain Genitourinary: No symptoms reported Musculoskeletal: No symptoms reported Endocrine: No symptoms reported - Objective Vital Signs: Last Vital Signs Temp Pulse Resp BP Pulse Ox 98.2 F 105 H 18 118/57 100 11/15/16 05:00 11/15/16 05:00 11/15/16 05:00 11/15/16 05:00 11/15/16 03:51 Intake & Output 11/12/16 11/13/16 11/14/16 11/15/16 23:59 23:59 23:59 23:59 Intake Total 10 0 Balance 10 0 Weight 172 lb 1.6 oz Constitutional: No Distress, Calm Neck: Supple Negative JVD No Bruit Cardiovascular: S1 S2 Regular Rate and Rhythm Respiratory: Clear to A&P Bilaterally Gastrointestinal: Soft Benign Normal Bowel Sounds Ext: No Edema Labs: CBC, BMP 11/15/16 06:00 11/15/16 06:00 Hepatic Panel Total Bilirubin 0.6 mg/dL (0.2-1.0) 11/15/16 06:00 AST 12 U/L (15-37) L D 11/15/16 06:00 ALT 20 U/L (12-78) 11/15/16 06:00 Alkaline Phosphatase 108 U/L (45-117) 11/15/16 06:00 Albumin 3.7 g/dl (3.4-5.0) 11/15/16 06:00 INR, PTT INR 1.14 (0.82-1.09) 11/15/16 06:00 Assessment/Plan ASSESSMENT: 1. Intra-cranial bleed, left cerebellar hypertensive bleed, no prior history of hypertensive cardiovascular disease 2. 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 Systolic left ventricular dysfunction related to non-ischemic dilated cardiomyopathy, Class I [place] [employer] classification left ventricular failure, compensated/euvolemic 4. Post ICD implantation for syncope and complete heart block 5. Post tricuspid valve annuloplasty, management of severe tricuspid valve regurgitation 6. 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 Continue Coreg therapy at the above-noted dosage, further titration as needed 2. Continue Altace therapy at the above-noted dosage, further titration as needed 3. Continue diuretic therapy with Lasix with caution and may reduce dosage to 20 mg once daily 4. Resumption of Ecotrin therapy as recommended by neurosurgery, in one week provided no further intracranial pathology/bleed is identified Nusrat Cheung M.D.
--- NOTE | 2016-11-15 14:26 | DS ---
Physical Exam: SUBJECTIVE: Patient seen and examined OBJECTIVE: Vital Signs Period Temp Pulse Resp BP Sys/Zayas Pulse Ox Last 24 Hr 97.6 F-98.5 F 97-110 18-20 101-128/57-77 98-100 PHYSICAL EXAM GENERAL: The patient is awake, alert, and fully oriented, in no acute distress. HEAD: Normal with no signs of trauma. EYES: PERRL, extraocular movements intact, sclera anicteric, conjunctiva clear. ENT: Ears normal, nares patent, oropharynx clear without exudates, moist mucous membranes. NECK: Trachea midline, full range of motion, supple. LUNGS: Breath sounds equal, clear to auscultation bilaterally, no wheezes, no crackles, no accessory muscle use. HEART: Regular rate and rhythm, S1, S2 without murmur, rub or gallop. ABDOMEN: Soft, nontender, nondistended, normoactive bowel sounds, no guarding, no rebound, no hepatosplenomegaly, no masses. EXTREMITIES: 2+ pulses, warm, well-perfused, no edema. NEUROLOGICAL: Cranial nerves II through XII grossly intact. Normal speech, gait not observed. PSYCH: Normal mood, normal affect. SKIN: Warm, dry, normal turgor, no rashes or lesions noted. LABS Laboratory Results - last 24 hr 11/15/16 11/15/16 11/15/16 06:00 06:00 06:00 WBC 10.8 H RBC 4.43 Hgb 10.9 Hct 34.7 MCV 78.4 L MCH 24.7 L MCHC 31.5 L RDW 17.8 H Plt Count 196 MPV 9.4 Neutrophils % 80.4 Lymphocytes % 8.8 Monocytes % 8.4 Eosinophils % 1.6 Basophils % 0.8 PT with INR 12.60 H INR 1.14 PTT (Actin FS) 25.4 L Sodium 142 Potassium 3.9 D Chloride 104 Carbon Dioxide 29 Anion Gap 9 BUN 18 Creatinine 0.9 Creat Clearance w eGFR > 60 Random Glucose 94 Calcium 9.1 Phosphorus 4.4 Magnesium 2.2 Total Bilirubin 0.6 AST 12 L D ALT 20 Alkaline Phosphatase 108 Total Protein 6.9 Albumin 3.7 HOSPITAL COURSE: Date of Admission:11/14/16 Date of Discharge: 11/15/16 Discharge Summary Reason For Visit: INTRACRANIAL HEMORRAGE Current Active Problems Intracranial hemorrhage (Acute) Condition: Guarded - Instructions Referrals: Darryl Dennis [Primary Care Provider] - - Home Medications Comprehensive Discharge Medication List: Ambulatory Orders Difluprednate [Durezol] 1 drop OU BID 02/15/15 Prednisone 10 mg PO DAILY 02/15/15 Tolterodine Tartrate 2 mg PO DAILY 02/15/15 Cholecalciferol (Vitamin D3) [Vitamin D3] 2,000 unit PO DAILY 03/08/15 Atorvastatin Ca [Lipitor] 20 mg PO HS 06/04/16 Carvedilol 3.125 mg PO BID 06/04/16 Omeprazole 20 mg PO BID 06/04/16 Ramipril 1.25 mg PO DAILY 06/04/16 Furosemide [Lasix -] 40 mg PO DAILY #30 tablet 06/06/16 Acetaminophen [Tylenol Extra Strength] 500 mg PO PRN PRN 06/24/16 Aspirin [Ecotrin] 81 mg PO DAILY 06/24/16 Cetirizine HCl [Zyrtec -] 10 mg PO DAILY 06/24/16
--- NOTE | 2016-11-15 14:34 | CONS ---
DATE OF CONSULTATION: 11/15/2016 REQUESTING PHYSICIAN: By hospitalist. CHIEF COMPLAINT: Headache, intracranial bleed, cardiovascular evaluation. HISTORY OF PRESENT ILLNESS: This is a 61-year-old female, known to our service, with known history of myxomatous mitral valve disease, mitral valve prolapse, mitral valve regurgitation, post mitral valve replacement, bioprosthesis, tricuspid valve disease, tricuspid valve regurgitation severe in severity, post tricuspid valve annuloplasty, systolic left ventricular dysfunction with chronic class 1-2 [place] [employer] classification left ventricular failure, pulmonary sarcoidosis without any evidence of myocardial sarcoidosis, AV block post ICD implantation, who denied any history of hypertension, diabetes, who presented to [facility] with several days of intermittent headaches, and upon evaluation, patient was noted to have evidence of cerebellar bleed. Patient denied any focal neurologic deficits. Patient denies any dyspnea, orthopnea, paroxysmal nocturnal dyspnea, or peripheral edema. Patient denies any chest discomfort. Patient denies any palpitations, dizziness, lightheadedness, or syncope. PAST MEDICAL HISTORY: Myxomatous mitral valve disease, mitral valve prolapse, mitral valve regurgitation, post mitral valve replacement for the above noted symptomatic mitral valve regurgitation , bioprosthesis, tricuspid valve disease, tricuspid valve regurgitation, post tricuspid valve repair, annuloplasty, systolic left ventricular dysfunction with chronic class 1-2 [place] [employer] classification congestive heart failure, AV block post permanent pacemaker implantation, pulmonary sarcoidosis without myocardial involvement. SOCIAL HISTORY: She denies smoking. FAMILY HISTORY: No history of premature coronary artery disease. ALLERGIES: To AMOXICILLIN. MEDICAL THERAPY: Currently includes: 1. Lipitor 20 mg once daily for hypocholesterolemia. 2. Coreg 3.125 mg twice a day. 3. Lasix 40 mg once a day. 4. Altace 1.25 mg once a day. 5. Detrol 2 mg once a day. REVIEW OF SYSTEMS: Head and neck: Reported intermittent headache, but denied any photophobia or blurring of vision. Respiratory: No cough or sputum production. Cardiovascular: As noted above. Gastrointestinal: Denies nausea, vomiting, diarrhea, or abdominal discomfort. Genitourinary: No symptoms reported. Musculoskeletal: No symptoms reported. Endocrine: No symptoms reported. PHYSICAL EXAMINATION: Vital signs: Blood pressure is 118/57 mmHg, pulse rate is 105 beats per minute. Head and neck: Pupils are equally reactive to light and accommodation. Extraocular muscles are intact. Anicteric sclerae. Negative JVD. No bruit appreciated. Chest: Clear to auscultation and percussion. Cardiovascular: S1, S2 regular. Tachycardic. Grade 1/6 systolic apical murmur. No clicks or gallops. Abdomen: Soft, benign. Normoactive bowel sounds. Extremities: Trace right lower extremity edema. Intact distal pulses. No calf tenderness. STUDIES: Electrocardiogram reveals atrial packing with AV sequential ventricular packing, appropriate sensing and capture with premature ventricular contraction. CBC revealed white cell count of 10.8, hemoglobin 10.9, platelets 196. INR 1.12. Basic metabolic profile revealed a sodium of 142, potassium 3.9, BUN 18, creatinine 0.9, glucose 94. ASSESSMENT: 1. Intracranial bleed, left cerebellar questionable hypertensive bleed. No prior history of hypertensive cardiovascular disease. 2. Mitral valve disease post mitral valve replacement, bioprosthesis for myxomatous mitral valve disease with severe symptomatic mitral valve regurgitation. 3. Systolic left ventricular dysfunction related to nonischemic dilated cardiomyopathy Class 1 [place] [employer] Classification left ventricular failure compensated/euvolemic. 4. Post implantable cardioverter defibrillator implantation for syncope and complete heart block. 5. Post tricuspid valve annuloplasty for management of severe tricuspid valve regurgitation. 6. 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 RECOMMENDATION: 1. Continuation of Coreg therapy at the above-noted dosage and further titration as needed and as tolerated. 2. Continuation of Altace therapy at the above noted dosage and further titration as needed and as tolerated. 3. Continuation of diuretic therapy with Lasix with caution and may reduce dosage to 20 mg once daily. 4. Resumption of Ecotrin therapy as recommended by neurosurgery in one week provided no further intracranial pathology/bleed is identified. Thank you for the kind referral. FREDY SAGE M.D. [id number]
--- NOTE | 2016-11-15 17:58 | PN ---
Progress Note (short form) - Note Progress Note: NEUROSURGERY h/o CAD s/p AICD/pacemaker and valve replacements, sarcoidosis, CHF, HTN, and HLD, c.o 3 days of a constant, dull, frontal headache and 2 weeks of fluctuating BP. The headache is better today. No diplopia, ataxia or N/V. PE; 98.6, 127/55 HEENT- NC/AT; Neck- supple, full ROM; Cor- Irreg; Chest- clear B; Abd-obese, benign; Ext- no sign of DVT A/A/Ox4 CN- intact; Motor- 5/5 B UE/LE without drift; Sensation- intact LT/vibration; DTR- 1+; Gait- stable; Cerebellar- intact FTN B Head CT- atrophy; periventricular small vessel dz; small 5x 5 mm round hyperdensity L superior cerebellum with no edema/mass effect; no HCP F/u head CT- stable/diffusing small bleed L superior cerebellum Small L cerebellar hypertensive bleed BP monitoring and control SBP 100-160 range Hold AC and ASA/NSAIDS for 5 more days No neurosurgical intervention indicated or recommended If clinically stable tomorrow may be discharged BP/weight/cholesterol control urged
[2016-11-15] MEDS: ATORVASTATIN CA 20 MG TABLET (FP) PO SCH (21:26)
--- NOTE | 2016-11-15 22:26 | PN ---
Physical Exam: SUBJECTIVE: Patient seen and examined OBJECTIVE: Vital Signs Period Temp Pulse Resp BP Sys/Zayas Pulse Ox Last 24 Hr 98.4 F-98.5 F 108-117 18-18 111-131/69-70 GENERAL: The patient is awake, alert, and fully oriented, in no acute distress. HEAD: Normal with no signs of trauma. EYES: PERRL, extraocular movements intact, sclera anicteric, conjunctiva clear. No ptosis. LUNGS: Breath sounds equal, clear to auscultation bilaterally, no wheezes, no crackles, no accessory muscle use. HEART: Regular rate and rhythm, S1, S2 ABDOMEN: Soft, nontender, nondistended, normoactive bowel sounds, no guarding, no rebound EXTREMITIES: 2+ pulses, warm, well-perfused, no edema. NEUROLOGICAL: Cranial nerves II through XII grossly intact. Normal speech, gait not observed. Active Medications Generic Name Dose Route Start Last Admin Trade Name Freq PRN Reason Stop Dose Admin Acetaminophen/Codeine Phosphate 1 tab 11/14/16 16:35 11/14/16 19:58 Tylenol # 3 - PO 1 tab Q6H PRN Administration HEADACHE Atorvastatin Calcium 20 mg 11/14/16 22:00 11/15/16 21:26 Lipitor - PO 20 mg HS [facility] Administration Carvedilol 3.125 mg 11/15/16 10:00 11/15/16 21:26 Coreg - PO 3.125 mg BID [facility] Administration Furosemide 40 mg 11/15/16 10:00 11/15/16 09:50 Lasix - PO 40 mg DAILY [facility] Administration Non-Formulary Medication 1 drop 11/14/16 22:00 Difluprednate [Durezol] OU BID [facility] Prednisone 10 mg 11/15/16 10:00 11/15/16 09:49 Deltasone - PO 10 mg DAILY [facility] Administration Ramipril 1.25 mg 11/15/16 10:00 11/15/16 09:50 Altace - PO Not Given DAILY [facility] Tolterodine Tartrate 2 mg 11/15/16 10:00 Detrol - PO DAILY [facility] ASSESSMENT/PLAN: 61 year-old woman with a PMH of HTN, HLD, CAD s/p AICD, MV replacement ([place] , 2016), systolic heart failure, and sarcoidosis. Presented with a 3-day headache and found to have a small left cerebellar hypertensive bleed. Left cerebellar hypertensive bleed --seen on CT imaging; repeat CT today showed decrease in size --no focal deficits; seen and evaluated by neurosurgeon Dr. Long, no surgical intervention at this time --BP systolic goal 100-->160 --continue lisinopril, carvedilol, lasix Chronic systolic heart failure --continue lisinopril, carvedilol, lasix Sarcoidosis with lung involvement --stable Right lower extremity swelling and tenderness --this is chronic and mild --duplex negative for DVT DVT prophylaxis: hold chemical prophylaxis due to bleeding; SCDs, oob, early ambulation Visit type - Emergency Visit Emergency Visit: Yes ED Registration Date: 11/15/16 Care time: The patient presented to the Emergency Department on the above date and was hospitalized for further evaluation of their emergent condition. - New Patient This patient is new to me today: No - Critical Care Critical Care patient: No
[2016-11-16] MEDS: ACETAMINOPHEN WITH CODEINE 300MG/30MG TABLET PO PRN (02:43)
[2016-11-16 07:23] LABS: BASOPHIL 0.7 % (0-2.0); EOSINOPHIL 0.7 % (0-4.5); MCH 24.4 pg (25.7-33.7); MCHC 31.5 g/dl (32.0-36.0); MEAN CELL VOLUME 77.5 fl (80-96); MEAN PLT VOLUME 9.4 fl (7.5-11.1); NEUTROPHILS 80.8 % (42.8-82.8); PLATELET COUNT 157 K/MM3 (134-434); RDW 17.7 % (11.6-15.6); WHITE BLOOD COUNT 9.7 K/mm3 (4.0-10.0)
[2016-11-16 07:37] LABS: INR 1.14 (0.82-1.09); PROTHROMBIN TIME (PATIENT) 12.6 SEC (9.98-11.88)
[2016-11-16 07:39] LABS: ACTIVATED PTT 23.6 SECONDS (26.9-34.4)
[2016-11-16 07:50] LABS: ALBUMIN 3.2 g/dl (3.4-5.0)
[2016-11-16 07:56] LABS: ALK PHOS 104 U/L (45-117); ANION GAP 6 (8-16); BILIRUBIN,TOTAL 0.3 mg/dL (0.2-1.0); CALCIUM 8.7 mg/dL (8.5-10.1); CO2 31 mmol/L (21-32); CREATININE 0.8 mg/dL (0.55-1.02); GLUCOSE,RANDOM 105 mg/dL (74-106); PHOSPHOROUS 3.5 mg/dL (2.5-4.9); SGOT/AST 14 U/L (15-37); SGPT/ALT 21 U/L (12-78); TOT PROT 6.1 g/dl (6.4-8.2)
--- NOTE | 2016-11-16 08:14 | DS ---
Physical Exam: SUBJECTIVE: Patient seen and examined OBJECTIVE: Vital Signs Period Temp Pulse Resp BP Sys/Zayas Pulse Ox Last 24 Hr 98.4 F-98.8 F 92-117 18-18 111-131/54-70 97 PHYSICAL EXAM GENERAL: The patient is awake, alert, and fully oriented, in no acute distress. HEAD: Normal with no signs of trauma. EYES: PERRL, extraocular movements intact, sclera anicteric, conjunctiva clear. No ptosis. LUNGS: Breath sounds equal, clear to auscultation bilaterally, no wheezes, no crackles, no accessory muscle use. HEART: Regular rate and rhythm, S1, S2 ABDOMEN: Soft, nontender, nondistended, normoactive bowel sounds, no guarding, no rebound EXTREMITIES: 2+ pulses, warm, well-perfused, no edema. NEUROLOGICAL: Cranial nerves II through XII grossly intact. Normal speech, gait not observed. LABS Laboratory Results - last 24 hr 11/16/16 11/16/16 11/16/16 06:00 06:00 06:00 WBC 9.7 RBC 3.97 Hgb 9.7 L D Hct 30.8 L MCV 77.5 L MCH 24.4 L MCHC 31.5 L RDW 17.7 H Plt Count 157 MPV 9.4 Neutrophils % 80.8 Lymphocytes % 10.0 Monocytes % 7.8 Eosinophils % 0.7 Basophils % 0.7 PT with INR 12.60 H INR 1.14 PTT (Actin FS) 23.6 L Sodium 141 Potassium 3.3 L Chloride 104 Carbon Dioxide 31 Anion Gap 6 L BUN 23 H D Creatinine 0.8 Creat Clearance w eGFR > 60 Random Glucose 105 Calcium 8.7 Phosphorus 3.5 D Magnesium 2.0 Total Bilirubin 0.3 D AST 14 L ALT 21 Alkaline Phosphatase 104 Total Protein 6.1 L Albumin 3.2 L 11/16/16 06:00 WBC RBC Hgb Hct MCV MCH MCHC RDW Plt Count MPV Neutrophils % Lymphocytes % Monocytes % Eosinophils % Basophils % PT with INR INR PTT (Actin FS) Cancelled Sodium Potassium Chloride Carbon Dioxide Anion Gap BUN Creatinine Creat Clearance w eGFR Random Glucose Calcium Phosphorus Magnesium Total Bilirubin AST ALT Alkaline Phosphatase Total Protein Albumin HOSPITAL COURSE: Date of Admission:11/15/16 Date of Discharge: 11/16/16 61 year-old woman with a PMH of HTN, HLD, CAD s/p AICD, MV replacement ([place] , 2017), systolic heart failure, and sarcoidosis. Presented with a 3-day headache and found to have a small left cerebellar hypertensive bleed. Left cerebellar hypertensive bleed --seen on CT imaging; repeat CT showed decrease in size --no focal deficits; seen and evaluated by neurosurgeon Dr. Long, no surgical intervention at this time --BP systolic goal 100-->160 --continued lisinopril, carvedilol, lasix Chronic systolic heart failure --continued lisinopril, carvedilol, lasix --no signs of volume overload Sarcoidosis with lung involvement --stable Right lower extremity swelling and tenderness --this is chronic and mild --duplex negative for DVT Minutes to complete discharge: 35 Discharge Summary Reason For Visit: INTRACRANIAL HEMORRAGE Current Active Problems Intracranial hemorrhage (Acute) Condition: Improved - Instructions Diet, Activity, Other Instructions: DO NOT TAKE ANY ASPIRIN OR ASPIRIN-BASED PRODUCTS FOR ONE WEEK. Please follow up with your portuguese tutor to monitor to your blood pressure and to make medications adjustments as needed. Please also follow up with Dr. Long, the neurosurgeon who saw you in the hospital , within 72 hours. His contact information is enclosed. Return to the emergency department for any new or worsening symptoms. Referrals: Darryl Dennis [Primary Care Provider] - Willard Long MD [Staff Physician] - 2 Weeks Disposition: HOME - Home Medications Comprehensive Discharge Medication List: Ambulatory Orders Difluprednate [Durezol] 1 drop OU BID 02/15/15 Prednisone 10 mg PO DAILY 02/15/15 Tolterodine Tartrate 2 mg PO DAILY 02/15/15 Cholecalciferol (Vitamin D3) [Vitamin D3] 2,000 unit PO DAILY 03/08/15 Atorvastatin Ca [Lipitor] 20 mg PO HS 06/04/16 Carvedilol 3.125 mg PO BID 06/04/16 Omeprazole 20 mg PO BID 06/04/16 Ramipril 1.25 mg PO DAILY 06/04/16 Furosemide [Lasix -] 40 mg PO DAILY #30 tablet 06/06/16 Acetaminophen [Tylenol Extra Strength] 500 mg PO PRN PRN 06/24/16 Aspirin [Ecotrin] 81 mg PO DAILY 06/24/16 Cetirizine HCl [Zyrtec -] 10 mg PO DAILY 06/24/16 This patient is new to me today: No Emergency Visit: Yes ED Registration Date: 11/15/16 Care time: The patient presented to the Emergency Department on the above date and was hospitalized for further evaluation of their emergent condition. Critical Care patient: No - Discharge Referral Referred to [facility] Med P.C.: No
[2016-11-16] MEDS ORDERED: POTASSIUM CHLORIDE TABS 20 MEQ TABLET.ER (FP) PO ONE (08:30)
[2016-11-16] MEDS ORDERED: FUROSEMIDE 40 MG TABLET (FP) PO SCH (08:48)
--- NOTE | 2016-11-16 08:48 | PN ---
Progress Note (short form) - Note Progress Note: Chief Complaint: Events noted, notes reviewed, denies any chest pain or dyspnea , headache reported this AM, denies any additional neurologic symptoms History of Present Illness: Seen and examined om telemetry. Events noted, notes reviewed, denies any chest pain or dyspnea, headache reported this AM, denies any additional neurologic symptoms - Current Medication List Current Medications Acetaminophen/Codeine Phosphate (Tylenol # 3 -) 1 tab PO Q6H PRN PRN Reason: HEADACHE Last Admin: 11/16/16 02:43 Dose: 1 tab Atorvastatin Calcium (Lipitor -) 20 mg PO HS [facility] Last Admin: 11/15/16 21:26 Dose: 20 mg Carvedilol (Coreg -) 3.125 mg PO BID [facility] Last Admin: 11/15/16 21:26 Dose: 3.125 mg Furosemide (Lasix -) 40 mg PO DAILY [facility] Last Admin: 11/15/16 09:50 Dose: 40 mg Non-Formulary Medication (Difluprednate [Durezol]) 1 drop OU BID [facility] Prednisone (Deltasone -) 10 mg PO DAILY [facility] Last Admin: 11/15/16 09:49 Dose: 10 mg Ramipril (Altace -) 1.25 mg PO DAILY [facility] Last Admin: 11/15/16 09:50 Dose: Not Given Tolterodine Tartrate (Detrol -) 2 mg PO DAILY [facility] Review of Systems - Review of Systems Constitutional: no symptoms reported Respiratory: denies: Cough or Sputum Production Cardiovascular: as noted above Gastrointestinal: denies Nausea, Vomiting, Diarrhea, Constipation or Abdominal Pain Genitourinary: No symptoms reported Musculoskeletal: No symptoms reported Endocrine: No symptoms reported - Objective Vital Signs: Last Vital Signs Temp Pulse Resp BP Pulse Ox 98.8 F 100 H 18 116/66 97 11/16/16 06:00 11/16/16 06:00 11/16/16 06:00 11/16/16 06:00 11/16/16 03:00 Intake & Output 11/13/16 11/14/16 11/15/16 11/16/16 23:59 23:59 23:59 23:59 Intake Total 10 10 0 Balance 10 10 0 Weight 172 lb 1.6 oz Constitutional: No Distress, Calm Neck: Supple Negative JVD No Bruit Cardiovascular: S1 S2 Regular Rate and Rhythm Respiratory: Clear to A&P Bilaterally Gastrointestinal: Soft Benign Normal Bowel Sounds Ext: No Edema Labs: CBC, BMP 11/16/16 06:00 11/16/16 06:00 Hepatic Panel Total Bilirubin 0.3 mg/dL (0.2-1.0) D 11/16/16 06:00 AST 14 U/L (15-37) L 11/16/16 06:00 ALT 21 U/L (12-78) 11/16/16 06:00 Alkaline Phosphatase 104 U/L (45-117) 11/16/16 06:00 Albumin 3.2 g/dl (3.4-5.0) L 11/16/16 06:00 Assessment/Plan ASSESSMENT: 1. Intra-cranial bleed, left cerebellar hypertensive bleed, no prior history of hypertensive cardiovascular disease, resolving 2. 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 Systolic left ventricular dysfunction related to non-ischemic dilated cardiomyopathy, Class I [place] [employer] classification left ventricular failure, compensated/euvolemic 4. Post ICD implantation for syncope and complete heart block 5. Post tricuspid valve annuloplasty, for management of severe tricuspid valve regurgitation 6. 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 Pre-renal azotemia 8. Hypokalemia PLAN: 1. Continue Coreg therapy at the above-noted dosage, further titration as needed 2. Continue Altace therapy at the above-noted dosage, further titration as needed 3. Continue diuretic therapy with Lasix with caution and reduce dosage to 20 mg once daily 4. Correction of Hypokalemia 5. Resumption of Ecotrin therapy as recommended by neurosurgery, in one week provided no further intracranial pathology/bleed is identified Nusrat Cheung M.D.
[2016-11-16 09:49] VITALS: BP 142/74; PULSE 104; TEMP 98.6
[2016-11-16] MEDS ORDERED: PT OWN MED DRAWER 7, Y5N ONE (10:37)
[2016-11-16] MEDS: predniSONE 5 MG TABLET (UD) PO SCH (10:39)
[2016-11-16] MEDS: CARVEDILOL 3.125 MG TABLET (FP) PO SCH (10:40)
[2016-11-16] MEDS: RAMIPRIL 1.25 MG CAPSULE PO SCH (10:40)
== END 2016-11-16 14:31 | disposition home or self-care (01) | DRG 65 ==
LOC: JER 11:04 → JERBED 14:24 → J5S 17:40 → J4W 21:07 → OBSVTOIN 11-15 15:44
PROVIDERS: ADMIT Internal Medicine; ATTEND Nurse Practitioner Acute Care
DX: I61.9 Nontraumatic intracerebral hemorrhage, unspecified (principal); I42.9 Cardiomyopathy, unspecified; I50.22 Chronic systolic (congestive) heart failure; I34.0 Nonrheumatic mitral (valve) insufficiency; E78.5 Hyperlipidemia, unspecified; I25.10 Atherosclerotic heart disease of native coronary artery without angina pectoris; I11.0 Hypertensive heart disease with heart failure; D86.0 Sarcoidosis of lung; E87.6 Hypokalemia
CPT/HCPCS: 36415; 70450-TC; 71010-TC; 80053; 82553; 83605; 83735; 84100; 84484; 85025; 85610; 85730; 93005; 93010; 93970-TC; 99283-25; G0378

== ENCOUNTER 2018-06-06 21:30 | Emergency (ER) | payer BC, OTHER ==
[2018-06-06 21:37] VITALS: BMI 39.0
--- NOTE | 2018-06-06 22:31 | PDOC ---
History of Present Illness - General Chief Complaint: Headache Stated Complaint: HIGH BLOOD PRESURE Time Seen by Provider: 06/06/18 21:56 - History of Present Illness Initial Comments: 62yo F with PMH of HTN, HLD, DM, CHF, Hypertensive brain bleed in 2017, CAD s/p AICD/PM and valve replacements, sarcoidosis presenting with headache. The headache is rated as high as 10/10 today. She took two tablets of tylenol today at 8pm and now rates her headache at 5/10. It is frontal, nonradiating, constant , and described as "sharp." No focal neurologic deficits, weakness, or paraesthesia. Denies vision changes, nausea, or vomiting. Patient says this headache is different from headaches she has had previously in that today's was more severe. In addition, while she has had normal blood pressure with headaches , she did have two hypertensive blood pressure readings at home with systolic 163 and 173. Patient reports that when she had the hypertensive brain bleed, she did not have a headache. Patient reports adherence with her medication regimen, however, did not taken lasix today because she was not feeling well and did not want to get up repeatedly to urinate. Patient endorses shortness of breath and dyspnea on exertion that is slightly worse than at baseline. Her leg swelling has worsened. Denies fevers, chills, or chest pain. Past History - Past Medical History Allergies/Adverse Reactions: Allergies Allergy/AdvReac Type Severity Reaction Status Date / Time amoxicillin trihydrate AdvReac Severe Verified 06/06/18 21:38 [From Augmentin] potassium clavulanate AdvReac Severe Verified 06/06/18 21:38 [From Augmentin] Home Medications: Ambulatory Orders Tolterodine Tartrate 2 mg PO DAILY 02/15/15 Cholecalciferol (Vitamin D3) [Vitamin D3] 2,000 unit PO DAILY 03/08/15 Atorvastatin Ca [Lipitor] 20 mg PO HS 06/04/16 Carvedilol 6.25 mg PO BID 06/04/16 Omeprazole 20 mg PO BID 06/04/16 Ramipril 2.5 mg PO DAILY 06/04/16 Albuterol 0.083% Nebulizer Sheeba 1 neb IH PRN 04/05/18 Ecotrin 81 mg PO DAILY 04/05/18 Proair Hfa 108 mcg IH PRN 04/05/18 Furosemide [Lasix] 40 mg PO DAILY 06/07/18 Anemia: No Asthma: No Cancer: No Cardiac Disorders: Yes CVA: Yes (hemorrhagic stroke) COPD: No CHF: No Dementia: No Diabetes: No GI Disorders: No Disorders: No HTN: Yes Hypercholesterolemia: Yes Liver Disease: No Seizures: No Thyroid Disease: No - Surgical History Abdominal Surgery: No Appendectomy: No Cardiac Surgery: Yes (tricuspid repair, mitral valve replaced , defibulator - pacemaker) Cholecystectomy: Yes Lung Surgery: No Neurologic Surgery: No Orthopedic Surgery: Yes (fracture left hip) - Suicide/Smoking/Psychosocial Hx Smoking History: Never smoked Have you smoked in the past 12 months: No Number of Cigarettes Smoked Daily: 0 If you are a former smoker, when did you quit?: 36 YRS AGO Information on smoking cessation initiated: No Hx Alcohol Use: No Drug/Substance Use Hx: No Substance Use Type: None Hx Substance Use Treatment: No Review of Systems - Review of Systems Comments:: Constitutional: no fever, no chills HEENT: no throat pain, no dysphagia Cardiovascular: no chest pain, no palpitations Respiratory: no cough, +shortness of breath Gastrointestinal: no abdominal pain, no nausea Genitourinary: no dysuria, no frequency Musculoskeletal: no myalgia, no arthralgia Skin: no rash, no itching Neurologic: +headache, +lightheaded *Physical Exam - Vital Signs Last Vital Signs Temp Pulse Resp BP Pulse Ox 98.0 F 90 16 134/66 100 06/06/18 21:36 06/06/18 21:36 06/06/18 21:36 06/06/18 21:36 06/06/18 21:36 - Physical Exam Comments: General: Awake, alert, and fully oriented, in no acute distress Head: No signs of trauma Eyes: EOMI, sclera anicteric ENT: Moist mucus membranes Neck: Normal ROM, supple, no meningismus Lungs: Lungs clear, Normal breath sounds Cardio: Regular rhythm, S1 and S2 present Abdomen: Soft, nontender. No guarding, no rebound, no masses Extremities: Normal range of motion, Distal pulses present, 2+pitting edema in BLE SKIN: Warm, Dry, normal turgor Neurologic: Cranial nerves II through XII intact. Normal speech, sensation, strength, coordination. Patient declined gait exam. ED Treatment Course - LABORATORY CBC & Chemistry Diagram: 06/06/18 22:51 06/06/18 22:51 - RADIOLOGY Radiology Studies Ordered: Category Date Time Status HEAD CT WITHOUT CONTRAST [CT] Stat CT Scan 06/06/18 22:28 Ordered CHEST X-RAY PORTABLE* [RAD] Stat Radiology 06/06/18 22:26 Ordered Medical Decision Making - Medical Decision Making 62yo F with PMH of HTN, HLD, DM, CHF, Hypertensive brain bleed in 2017, cardiac PM and defibrillator presenting with headache. DDX including but not limited to tension headache, hypertensive brain bleed, hypertensive emergency CBC, CMP, BNP, Tpn EKG CXR CT head Patient declined analgesia for her headache 06/06/18 22:30 CXR looks unchanged from previous and without acute pathology, my impression BNP 2085 (lower than baseline) Tpn normal EKG No leukocytosis Hgb at baseline Cr=0.5 06/06/18 23:54 CT head: "FINDINGS: Brain parenchyma is normal in attenuation with no mass or hematoma. There is no midline shift. Peterson and white matter differentiation is normal. Ventricles are normal. Sulci and extra-axial CSF spaces are normal. There is no calvarial fracture. Paranasal sinuses are normally aerated. IMPRESSION: Normal head" Patient reporting 4/10 headache and 7/10 left leg pain; requesting tylenol. Last home dose was at 8pm 975mg tylenol ordered 06/07/18 00:07 Patient discharged *DC/Admit/Observation/Transfer Diagnosis at time of Disposition: Headache Qualifiers: Headache type: unspecified Headache chronicity pattern: acute headache Intractability: not intractable Qualified Code(s): R51 - Headache - Discharge Dispostion Disposition: HOME Condition at time of disposition: Improved - Referrals - Patient Instructions Printed Discharge Instructions: DI for Headache Additional Instructions: You came to the ED for a headache. Labs were at your baseline. CT imaging of your head did not show acute pathology. You can take [id number] tylenol for your headache. Follow the instructions on the medication bottle. Follow-up with you primary care physician at your appointment tomorrow to discuss this ED visit and to further evaluate your headache. Your care is not complete until you do so. Medical attention is required if: you experience persistent symptoms, severe headache, have a seizure, or have focal numbness or weakness. If you think you are having an emergency, call for emergency medical services or present to the emergency department right away - Post Discharge Activity
--- NOTE | 2018-06-06 22:39 | PDOC ---
Attending Attestation - Resident Resident Name: Xochilt Loemli - ED Attending Attestation I have performed the following: I have examined & evaluated the patient, The case was reviewed & discussed with the resident, I agree w/resident's findings & plan, Exceptions are as noted - HPI HPI: 06/07/18 00:28 The patient is a 62 year old female with a PMH of HTN, HLD, DM, CHF, hypertensive brain bleed in 2017, cardiac PM and defibrillator presenting with a headache since this morning. The patient states the headache was a 10/10 in severity this morning, she reports taking 2 Tylenols and states the headache is now a 5/10. Patient took her meds today with the exception of lasix because " she did not want to stand up to use the bathroom." Patient measured her blood pressure at home and was found to be in the 160s-170s systolic. Patient states her headache today was somewhat similar in nature to her previous headaches but it felt abit more severe and lasted longer than her typical headaches which last for a few hrs and then resolve. There is no asociated vision changes, numbness/tingling/weakness, neck pain, back pain. The patient admits to chronic leg swelling but denies chest pain, shortness of breath, numbness/tingling/weakness and dizziness. Denies fever, chills, nausea, vomit, diarrhea and constipation. Denies dysuria, frequency, urgency and hematuria. Allergies: NKA Past surgical history: None reported. Social history: No reported alcohol, drug or cigarette use. - Physicial Exam PE: 06/07/18 00:30 general: well appearing, nad neuro: symmetric face, strength 5/5 in upper/.lower, nsesation symmetric throughout, EOMI pulm: cta b/l card: rrr, no mrg - Medical Decision Making 06/07/18 00:31 suspect tension headache pt notes headache has singificantly improved ct head negative will dc pt with pmd fu tomorrow return preautions were dsicussed Heart Score/ECG Review - ECG Impressions Comment:: 06/07/18 00:31 Twelve-lead EKG was performed and reviewed by me. EKG performed: Paced ventricular rhythm Rate of 90 No signs of ischemia via Sgarbossa criteria
[2018-06-06 23:00] LABS: BASO % 0.4 % (0-2.0); EOS % 0.2 % (0-4.5); HEMATOCRIT 30.5 % (32.4-45.2); HEMOGLOBIN 9.7 GM/dL (10.7-15.3); LYMPH % 9.3 % (8-40); MCH 26.8 pg (25.7-33.7); MCHC 31.8 g/dl (32.0-36.0); MEAN CELL VOLUME 84.2 fl (80-96); MEAN PLT VOLUME 8.6 fl (7.5-11.1); MONO % 9.4 % (3.8-10.2); NEUT % 80.7 % (42.8-82.8); PLATELET COUNT 170 K/MM3 (134-434); RBC 3.62 M/mm3 (3.60-5.2); RDW 17.7 % (11.6-15.6); WHITE BLOOD COUNT 7.3 K/mm3 (4.0-10.0)
[2018-06-06 23:34] LABS: ALBUMIN 3.1 g/dl (3.4-5.0); ALK PHOS 81 U/L (45-117); ANION GAP 4 MMOL/L (8-16); BILIRUBIN,TOTAL 0.2 mg/dL (0.2-1); BLOOD UREA NITROGEN 17 mg/dL (7-18); CALCIUM 7.7 mg/dL (8.5-10.1); CHLORIDE 111 mmol/L (98-107); CO2 28 mmol/L (21-32); CREATININE 0.5 mg/dL (0.55-1.3); GLUCOSE,RANDOM 94 mg/dL (74-106); N-TERMINAL BNP 2085.3 pg/ml (5-125); POTASSIUM 3.7 mmol/L (3.5-5.1); SGOT/AST 18 U/L (15-37); SGPT/ALT 24 U/L (13-61); SODIUM 143 mmol/L (136-145)
[2018-06-07] MEDS ORDERED: ACETAMINOPHEN 325 MG TABLET (FP) PO ONE (00:09)
[2018-06-07] MEDS ORDERED: ACETAMINOPHEN 325 MG TABLET (FP) ONE (00:18)
[2018-06-07 00:42] VITALS: BP 123/59; PULSE 92; TEMP 98.1
--- NOTE | 2018-06-07 10:27 | EKG ---
Test Reason : Blood Pressure : / mmHG Vent. Rate : 090 BPM Atrial Rate : 092 BPM P-R Int : 000 ms QRS Dur : 164 ms QT Int : 424 ms P-R-T Axes : 000 -53 112 degrees QTc Int : 518 ms Ventricular-paced rhythm ABNORMAL ECG WHEN COMPARED WITH ECG OF 26-AUG-2017 20:37, PREMATURE VENTRICULAR COMPLEXES ARE NO LONGER PRESENT VENT. RATE HAS DECREASED BY 5 BPM Confirmed by JESUS THOMAS MD ([id number]) on 06/07/2018 10:26:55 AM Referred By: Confirmed By:JESUS THOMAS MD
== END 2018-06-07 01:05 | disposition home or self-care (01) ==
LOC: JER 21:30
DX: R51 Headache (principal); I25.10 Atherosclerotic heart disease of native coronary artery without angina pectoris; I11.0 Hypertensive heart disease with heart failure; E78.5 Hyperlipidemia, unspecified; E11.9 Type 2 diabetes mellitus without complications; Z86.73 Personal history of transient ischemic attack (TIA), and cerebral infarction without residual deficits; Z95.810 Presence of automatic (implantable) cardiac defibrillator; Z95.4 Presence of other heart-valve replacement
CPT/HCPCS: 36415; 70450-TC; 71045-TC-FY; 80053; 83880; 84484; 85025; 93005; 93010; 99282-25

== ENCOUNTER 2018-06-28 10:59 | Inpatient (IN) | payer BC, OTHER ==
--- NOTE | 2018-06-28 13:01 | PDOC ---
History of Present Illness - General Chief Complaint: Cold Symptoms Stated Complaint: COLD SYMPTOMS Time Seen by Provider: 06/28/18 11:18 History Source: Patient Exam Limitations: No Limitations - History of Present Illness Initial Comments: 06/28/18 12:05 62-year-old female presents to ED with complaints of continual cough despite taking Z-Ben for 5 days and prednisone 20 mg. Patient states doesn 't history of CHF and sarcoidosis but denies fever she presently stated in triage. Patient also denies chest pain, abdominal pain, or weakness. Patient does state lower extremity edema has increased slightly despite being on Lasix.8 Timing/Duration: reports: changing over time Severity: reports: mild Associated Symptoms: reports: denies symptoms Past History - Travel Traveled outside of the country in the last 30 days: No - Past Medical History Allergies/Adverse Reactions: Allergies Allergy/AdvReac Type Severity Reaction Status Date / Time amoxicillin trihydrate AdvReac Severe Verified 06/06/18 21:38 [From Augmentin] potassium clavulanate AdvReac Severe Verified 06/06/18 21:38 [From Augmentin] Home Medications: Ambulatory Orders Tolterodine Tartrate 2 mg PO DAILY 02/15/15 Cholecalciferol (Vitamin D3) [Vitamin D3] 2,000 unit PO DAILY 03/08/15 Atorvastatin Ca [Lipitor] 20 mg PO HS 06/04/16 Carvedilol 6.25 mg PO BID 06/04/16 Omeprazole 20 mg PO BID 06/04/16 Ramipril 2.5 mg PO DAILY 06/04/16 Albuterol 0.083% Nebulizer Sheeba 1 neb IH PRN 04/05/18 Ecotrin 81 mg PO DAILY 04/05/18 Proair Hfa 108 mcg IH PRN 04/05/18 Furosemide [Lasix] 40 mg PO DAILY 06/07/18 Anemia: No Asthma: No Cancer: No Cardiac Disorders: Yes CVA: Yes (hemorrhagic stroke) COPD: No CHF: No Dementia: No Diabetes: No GI Disorders: No Disorders: No HTN: Yes Hypercholesterolemia: Yes Liver Disease: No Seizures: No Thyroid Disease: No - Surgical History Abdominal Surgery: No Appendectomy: No Cardiac Surgery: Yes (tricuspid repair, mitral valve replaced , defibulator - pacemaker) Cholecystectomy: Yes Lung Surgery: No Neurologic Surgery: No Orthopedic Surgery: Yes (fracture left hip) - Suicide/Smoking/Psychosocial Hx Smoking History: Never smoked Have you smoked in the past 12 months: No Number of Cigarettes Smoked Daily: 0 If you are a former smoker, when did you quit?: 36 YRS AGO Hx Alcohol Use: No Drug/Substance Use Hx: No Substance Use Type: None Hx Substance Use Treatment: No Patient Lives Alone: No Lives with/in: cousin Respiratory Specific PMHX - Complaint Specific PMHX Bronchitis: Yes Other History: sarcoidosis Review of Systems - Review of Systems Able to Perform ROS?: Yes Constitutional: No: Symptoms Reported HEENTM: No: Symptoms Reported Respiratory: Yes: Cough, Shortness of Breath Cardiac (ROS): Yes: Edema ABD/GI: No: Symptoms Reported : No: Symptoms Reported Musculoskeletal: No: Symptoms Reported Integumentary: No: Symptoms Reported Neurological: No: Symptoms reported Endocrine: No: Symptoms Reported Hematologic/Lymphatic: No: Symptoms Reported *Physical Exam - Vital Signs Last Vital Signs Temp Pulse Resp BP Pulse Ox 97.9 F 101 H 15 107/57 L 93 L 06/28/18 11:07 06/28/18 11:07 06/28/18 11:07 06/28/18 11:07 06/28/18 11:07 - Physical Exam General Appearance: Yes: Nourished, Appropriately Dressed. No: Apparent Distress HEENT: positive: EOMI, JULIANA, TMs Normal, Pharynx Normal. negative: Pale Conjunctivae Respiratory/Chest: positive: Crackles (course breath sounds to right base) Cardiovascular: positive: Regular Rate (88). negative: Murmur Gastrointestinal/Abdominal: positive: Soft. negative: Tenderness Extremity: positive: Normal Capillary Refill, Pedal Edema (3+ pitting) Integumentary: positive: Normal Color, Warm, Moist Neurologic: positive: Motor Strength 5/5 (ambulatory with walker) ED Treatment Course - LABORATORY CBC & Chemistry Diagram: 06/28/18 12:57 06/28/18 12:57 - RADIOLOGY Radiology Studies Ordered: Category Date Time Status CHEST PA & LAT [RAD] Stat Radiology 06/28/18 11:39 Completed Medical Decision Making - Medical Decision Making 06/28/18 13:18 CC: Patient with continual cough and now with lower extremity edema despite taking Z-Ben and prednisone. Patient history of CHF and sarcoidosis Exam. Patient O2 saturation 93% on room air, 88 hr, coarse/crackles to rt base Plan: Labs, and x-ray 06/28/18 13:38 Chest x-ray shows no acute process when compared to chest x-ray from 06/06/2018. Labs pending 06/28/18 14:05 Laboratory Tests 06/28/18 06/28/18 06/28/18 12:57 12:57 12:57 WBC 9.5 Hgb 10.2 L Hct 33.0 Absolute Neuts (auto) 8.6 H Neutrophils % 90.6 H Lymphocytes % 4.2 L D Sodium 144 Potassium 4.2 Chloride 110 H Carbon Dioxide 26 Anion Gap 9 BUN 17 Creatinine 0.6 Random Glucose 125 H Calcium 8.7 Total Bilirubin 0.7 AST 20 ALT 24 Alkaline Phosphatase 77 B-Natriuretic Peptide 4338.2 H Total Protein 6.4 Albumin 3.4 06/28/18 14:12 I have ordered for 40 mg of Lasix IV. EKG along with IV access and urine ordered. Case discussed then with Dr. Loving patient's operations planner and agrees to admit patient. All placed to medical on-call doctor . ernesto *DC/Admit/Observation/Transfer Diagnosis at time of Disposition: CHF exacerbation, Cough - Discharge Dispostion Decision to Admit order: Yes - Referrals Referrals: Darryl Dennis [Primary Care Provider] - - Patient Instructions - Post Discharge Activity
[2018-06-28 13:18] LABS: BASO % 0.6 % (0-2.0); EOS % 0.3 % (0-4.5); HEMOGLOBIN 10.2 GM/dL (10.7-15.3); LYMPH % 4.2 % (8-40); MCHC 30.7 g/dl (32.0-36.0); MEAN CELL VOLUME 84.5 fl (80-96); MEAN PLT VOLUME 8.4 fl (7.5-11.1); MONO % 4.3 % (3.8-10.2); NEUT % 90.6 % (42.8-82.8); PLATELET COUNT 193 K/MM3 (134-434); RBC 3.91 M/mm3 (3.60-5.2); RDW 17.5 % (11.6-15.6); WHITE BLOOD COUNT 9.5 K/mm3 (4.0-10.0)
[2018-06-28 13:57] LABS: ALBUMIN 3.4 g/dl (3.4-5.0); ALK PHOS 77 U/L (45-117); ANION GAP 9 MMOL/L (8-16); BILIRUBIN,TOTAL 0.7 mg/dL (0.2-1); BLOOD UREA NITROGEN 17 mg/dL (7-18); CALCIUM 8.7 mg/dL (8.5-10.1); CHLORIDE 110 mmol/L (98-107); CO2 26 mmol/L (21-32); CREATININE 0.6 mg/dL (0.55-1.3); GLUCOSE,RANDOM 125 mg/dL (74-106); POTASSIUM 4.2 mmol/L (3.5-5.1); SGOT/AST 20 U/L (15-37); SGPT/ALT 24 U/L (13-61); SODIUM 144 mmol/L (136-145); TOT PROT 6.4 g/dl (6.4-8.2)
[2018-06-28] MEDS ORDERED: FUROSEMIDE 40 MG/4 ML INJECTABLE VIAL IVPUSH ONE (14:07)
[2018-06-28] MEDS ORDERED: FUROSEMIDE 40 MG/4 ML INJECTABLE VIAL ONE (15:28)
--- NOTE | 2018-06-28 18:03 | HP ---
Admitting History and Physical - Primary Care Physician PCP: Stuart Keith - Admission History of Present Illness: -62-year-old female presents to ED with complaints of continual cough despite taking Z-Ben for 5 days and prednisone 20 mg. Patient states doesn't history of CHF and sarcoidosis but denies fever she presently stated in triage. Patient also denies chest pain, abdominal pain, or weakness. Patient does state lower extremity edema has increased slightly despite being on Lasix.8 - Past Medical History Cardiovascular: Yes: CHF, HTN Pulmonary: Yes: Other (Sarcoid) - Past Surgical History Past Surgical History: Yes: Permanent Pacemaker - Smoking History Smoking history: Never smoked Have you smoked in the past 12 months: No Aproximately how many cigarettes per day: 0 If you are a former smoker, when did you quit?: 36 YRS AGO - Alcohol/Substance Use Hx Alcohol Use: No Home Medications - Allergies Allergies/Adverse Reactions: Allergies Allergy/AdvReac Type Severity Reaction Status Date / Time amoxicillin trihydrate AdvReac Severe Verified 06/06/18 21:38 [From Augmentin] potassium clavulanate AdvReac Severe Verified 06/06/18 21:38 [From Augmentin] - Home Medications Home Medications: Ambulatory Orders Tolterodine Tartrate 2 mg PO DAILY 02/15/15 Cholecalciferol (Vitamin D3) [Vitamin D3] 2,000 unit PO DAILY 03/08/15 Atorvastatin Ca [Lipitor] 20 mg PO HS 06/04/16 Carvedilol 6.25 mg PO BID 06/04/16 Omeprazole 20 mg PO BID 06/04/16 Ramipril 2.5 mg PO DAILY 06/04/16 Albuterol 0.083% Nebulizer Sheeba 1 neb IH PRN 04/05/18 Ecotrin 81 mg PO DAILY 04/05/18 Proair Hfa 108 mcg IH PRN 04/05/18 Furosemide [Lasix] 40 mg PO DAILY 06/07/18 Physical Examination Vital Signs: Vital Signs Temperature 97.9 F 06/28/18 11:07 Pulse Rate 101 H 06/28/18 11:07 Respiratory Rate 15 06/28/18 11:07 Blood Pressure 107/57 L 06/28/18 11:07 O2 Sat by Pulse Oximetry (%) 94 L 06/28/18 15:47 Constitutional: Yes: No Distress HENT: Yes: Atraumatic Neck: Yes: Supple Cardiovascular: Yes: Regular Rate and Rhythm Respiratory: Yes: CTA Bilaterally Gastrointestinal: Yes: Normal Bowel Sounds Extremities: Yes: WNL Edema: No Peripheral Pulses WNL: Yes Neurological: Yes: Alert, Oriented Labs: CBC, BMP 06/28/18 12:57 06/28/18 12:57 Problem List - Problems (1) CHF exacerbation Assessment/Plan: iv lasix fu cmp Code(s): I50.9 - HEART FAILURE, UNSPECIFIED Qualifiers: Heart failure type: combined systolic and diastolic Qualified Code(s): I50.43 - 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) heart failure (2) Hypertensive cardiomyopathy Code(s): I11.9 - HYPERTENSIVE HEART DISEASE WITHOUT HEART FAILURE; I42.9 - CARDIOMYOPATHY, UNSPECIFIED Qualifiers: Heart failure presence: with heart failure Qualified Code(s): I11.0 - Hypertensive heart disease with heart failure; I43 - Cardiomyopathy in diseases classified elsewhere (3) Type 2 diabetes mellitus with foot ulcer Assessment/Plan: monitor bgms Code(s): E11.621 - TYPE 2 DIABETES MELLITUS WITH FOOT ULCER; L97.509 - NON- PRESSURE CHRONIC ULCER OTH PRT UNSP FOOT W UNSP SEVERITY Assessment/Plan Laboratory Tests 06/28/18 06/28/18 06/28/18 12:57 12:57 12:57 WBC 9.5 RBC 3.91 Hgb 10.2 L Hct 33.0 MCV 84.5 MCH 26.0 MCHC 30.7 L RDW 17.5 H Plt Count 193 MPV 8.4 Absolute Neuts (auto) 8.6 H Neutrophils % 90.6 H Lymphocytes % 4.2 L D Monocytes % 4.3 Eosinophils % 0.3 Basophils % 0.6 Nucleated RBC % 0 Sodium 144 Potassium 4.2 Chloride 110 H Carbon Dioxide 26 Anion Gap 9 BUN 17 Creatinine 0.6 Creat Clearance w eGFR 101.97 Random Glucose 125 H Calcium 8.7 Total Bilirubin 0.7 AST 20 ALT 24 Alkaline Phosphatase 77 B-Natriuretic Peptide 4338.2 H Total Protein 6.4 Albumin 3.4 Active Medications Generic Name Dose Route Start Last Admin Trade Name Freq PRN Reason Stop Dose Admin Albuterol Sulfate 1 amp 06/28/18 17:51 Ventolin 0.083% Nebulizer Soln - NEB Q4H PRN SHORT OF BREATH/WHEEZING Atorvastatin Calcium 20 mg 06/28/18 22:00 Lipitor - PO HS CHANG Carvedilol 6.25 mg 06/28/18 22:00 Coreg - PO BID CHANG Furosemide 40 mg 06/29/18 10:00 Lasix Injection - IVPUSH DAILY CHANG
[2018-06-28] MEDS ORDERED: ACETAMINOPHEN 325 MG TABLET (FP) PO PRN (18:05)
--- NOTE | 2018-06-28 18:27 | CON.CARD ---
Consult Consult Specialty:: Cardiology Referred by:: Stuart Keith MD Reason for Consultation:: Cardiomyopathy, elevated BNP - History of Present Illness Chief Complaint: Cough, dyspnea History of Present Illness: 62-year-old female h/o pulmonary sarcoidosis and uveitis, syncope with CHP s/p [employer] ICD, mod systolic dysfunction post bioprosthetic MVR and TV repair, post-op afib,, cerebellar bleed, presents to ED with complaints of cough, dyspnea, LE edema without improvement, orthopnea despite taking Z-Ben and prednisone 20 mg over last several days for empiric acute bronchitis treatment. Patient denies chest pain, palpitations, near or true syncope, diet or medication noncompliance, ICD discharge or NSAID use. - History Source History Provided By: Patient Limitations to Obtaining History: No Limitations - Past Medical History Cardio/Vascular: Yes: CHF, HTN Pulmonary: Yes: Other (Sarcoid) - Past Surgical History Past Surgical History: Yes: Permanent Pacemaker - Alcohol/Substance Use Hx Alcohol Use: No - Smoking History Smoking history: Never smoked Have you smoked in the past 12 months: No Aproximately how many cigarettes per day: 0 If you are a former smoker, when did you quit?: 36 YRS AGO Home Medications - Allergies Allergies/Adverse Reactions: Allergies Allergy/AdvReac Type Severity Reaction Status Date / Time amoxicillin trihydrate AdvReac Severe Verified 06/06/18 21:38 [From Augmentin] potassium clavulanate AdvReac Severe Verified 06/06/18 21:38 [From Augmentin] - Home Medications Home Medications: Ambulatory Orders Tolterodine Tartrate 2 mg PO DAILY 02/15/15 Cholecalciferol (Vitamin D3) [Vitamin D3] 2,000 unit PO DAILY 03/08/15 Atorvastatin Ca [Lipitor] 20 mg PO HS 06/04/16 Carvedilol 6.25 mg PO BID 06/04/16 Omeprazole 20 mg PO BID 06/04/16 Ramipril 2.5 mg PO DAILY 06/04/16 Albuterol 0.083% Nebulizer Sheeba 1 neb IH PRN 04/05/18 Ecotrin 81 mg PO DAILY 04/05/18 Proair Hfa 108 mcg IH PRN 04/05/18 Furosemide [Lasix] 40 mg PO DAILY 06/07/18 Review of Systems - Review of Systems Respiratory: reports: Cough, SOB Vital Signs: Vital Signs Temperature 97.9 F 06/28/18 11:07 Pulse Rate 101 H 06/28/18 11:07 Respiratory Rate 15 06/28/18 11:07 Blood Pressure 107/57 L 06/28/18 11:07 O2 Sat by Pulse Oximetry (%) 94 L 06/28/18 15:47 Constitutional: Yes: No Distress, Calm Neck: Yes: Supple Respiratory: Yes: Regular, Diminished Gastrointestinal: Yes: Normal Bowel Sounds, Soft Cardiovascular: Yes: Regular Rate and Rhythm JVD: No Carotid Bruit: No Heart Sounds: Yes: S1, S2 Edema: Yes Edema: LLE: 1+, RLE: 1+ - Other Data Labs, Other Data: CBC, BMP 06/28/18 12:57 06/28/18 12:57 Troponin, BNP 06/28/18 12:57 B-Natriuretic Peptide 4338.2 H Troponin, BNP 06/28/18 12:57 B-Natriuretic Peptide 4338.2 H A-sensed V-paced @ 91 Ejection Fraction %: LVEF < 40 % Imaging - Results Chest X-ray: Report Reviewed (NAD, ICD) Problem List - Problems (2) Status post tricuspid valve repair Code(s): Z98.890 - OTHER SPECIFIED POSTPROCEDURAL STATES (3) Hyperlipidemia Code(s): E78.5 - HYPERLIPIDEMIA, UNSPECIFIED Qualifiers: Hyperlipidemia type: pure hypercholesterolemia Qualified Code(s): E78.00 - Pure hypercholesterolemia, unspecified; E78.0 - Pure hypercholesterolemia (4) CHF exacerbation Code(s): I50.9 - HEART FAILURE, UNSPECIFIED Qualifiers: Heart failure type: combined systolic and diastolic Qualified Code(s): I50.43 - 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) heart failure (5) Hypertensive cardiomyopathy Code(s): I11.9 - HYPERTENSIVE HEART DISEASE WITHOUT HEART FAILURE; I42.9 - CARDIOMYOPATHY, UNSPECIFIED Qualifiers: Heart failure presence: with heart failure Qualified Code(s): I11.0 - Hypertensive heart disease with heart failure; I43 - Cardiomyopathy in diseases classified elsewhere (6) Presence of single implantable cardioverter-defibrillator (ICD) Code(s): Z95.810 - PRESENCE OF AUTOMATIC (IMPLANTABLE) CARDIAC DEFIBRILLATOR (7) Sarcoidosis Code(s): D86.9 - SARCOIDOSIS, UNSPECIFIED Assessment/Plan 03/29/2018 Echo Conclusions:1. LV size is mildly increased. There is mild LVH. Left ventricular systolic function is moderately decreased. 2. Left atrial size is normal. Right atrial size is normal. 3. Right ventricular size is normal. The right ventricular systolic function is preserved. 4. The aortic valve is sclerotic without leaflet restriction. No aortic insufficiency is present. Aortic root dimension is normal. The ascending aorta is normal. 5. A bioprosthetic mitral valve is present. Mild mitral regurgitation is present. 6. The tricuspid valve is structurally normal. Mild tricuspid regurgitation is present. Pulmonic valve is not well seen but probably normal. 7. No pericardial effusion. 8. The pulmonary artery systolic pressure is at least 29 mmHg based on an RA pressure of 3 mmHg. 9. Linear echodensity in right cardiac chamber c/w with ICD lead. 1. Acute on chronic systolic heart failure 2. s/p bioprosthetic MV replacement and TV repair for MVP and mod-severe MR 3. AV block s/p ICD 4. Pulmonary sarcoidosis 5. Post-op Afib 6. H/o cerebellar bleed P:1. IV diuresis with monitor diuretic response, renal fxn and electrolytes 2. Continue carvedilol 6.25 bid, ramipril 2.5 qd, Lipitor 20 qd, ASA 81 qd 3. Patient previously declined anticoagulation 4. Thank you for consultative opportunity
[2018-06-28 18:55] VITALS: BMI 39.2
[2018-06-28] MEDS: CARVEDILOL 6.25 MG TABLET (FP) PO SCH (21:47)
[2018-06-28] MEDS: ATORVASTATIN CA 20 MG TABLET (FP) PO SCH (21:47)
[2018-06-28] MEDS ORDERED: ATORVASTATIN CA 20 MG TABLET (FP) PO SCH (22:00)
[2018-06-28] MEDS ORDERED: CARVEDILOL 6.25 MG TABLET (FP) PO SCH (22:00)
[2018-06-28 23:28] LABS: EPI CELLS 1.7 /HPF (0-5/HPF); URINE APPEARANCE CLEAR; URINE BACTERIA 27.8 /hpf (NEGATIVE); URINE BILIRUBIN NEGATIVE (NEGATIVE); URINE CASTS 4 /lpf (0-8); URINE COLOR YELLOW; URINE GLUCOSE (UA) NEGATIVE (NEGATIVE); URINE KETONE NEGATIVE (NEGATIVE); URINE LEUK ESTERASE 1+ (NEGATIVE); URINE NITRITE NEGATIVE (NEGATIVE); URINE PROTEIN NEGATIVE (NEGATIVE); URINE RBC 2 /hpf (0-4); URINE UROBILINOGEN 0.2 mg/dL (0.2-1.0); URINE WBC 12 /hpf (0-5)
[2018-06-29 07:58] LABS: BASO % 0.6 % (0-2.0); HEMATOCRIT 30.6 % (32.4-45.2); HEMOGLOBIN 9.7 GM/dL (10.7-15.3); LYMPH % 9.7 % (8-40); MCH 26.3 pg (25.7-33.7); MCHC 31.6 g/dl (32.0-36.0); MEAN PLT VOLUME 8.4 fl (7.5-11.1); MONO % 10.7 % (3.8-10.2); PLATELET COUNT 178 K/MM3 (134-434); RBC 3.68 M/mm3 (3.60-5.2); RDW 17.4 % (11.6-15.6); WHITE BLOOD COUNT 8.3 K/mm3 (4.0-10.0)
[2018-06-29 08:54] LABS: ALBUMIN 3.3 g/dl (3.4-5.0); ALK PHOS 69 U/L (45-117); ANION GAP 7 MMOL/L (8-16); BILIRUBIN,TOTAL 0.6 mg/dL (0.2-1); BLOOD UREA NITROGEN 19 mg/dL (7-18); CALCIUM 8.9 mg/dL (8.5-10.1); CHLORIDE 108 mmol/L (98-107); CO2 31 mmol/L (21-32); CREATININE 0.7 mg/dL (0.55-1.3); GLUCOSE,RANDOM 82 mg/dL (74-106); POTASSIUM 3.5 mmol/L (3.5-5.1); SGOT/AST 14 U/L (15-37); SGPT/ALT 22 U/L (13-61); SODIUM 145 mmol/L (136-145)
[2018-06-29] MEDS: RAMIPRIL 2.5 MG CAPSULE (FP) PO SCH (09:33)
[2018-06-29] MEDS: FUROSEMIDE 20 MG TABLET (FP) PO SCH (09:33)
[2018-06-29] MEDS: CARVEDILOL 6.25 MG TABLET (FP) PO SCH ×2 (09:33→21:10)
[2018-06-29] MEDS: FUROSEMIDE 40 MG/4 ML INJECTABLE VIAL IVPUSH SCH (09:34)
--- NOTE | 2018-06-29 10:06 | PN ---
Progress Note, Physician Chief Complaint: Events noted Feels better this am Intermittent dyspnea (+) pedal edema R>L with erythema History of Present Illness: Patient was seen and examined. Awake and alert. Chart was reviewed Denies chest pain or palpitations - Current Medication List Current Medications: Active Medications Acetaminophen (Tylenol -) 650 mg PO Q6H PRN PRN Reason: FEVER Last Admin: 06/29/18 09:34 Dose: 650 mg Albuterol Sulfate (Ventolin 0.083% Nebulizer Soln -) 1 amp NEB Q4H PRN PRN Reason: SHORT OF BREATH/WHEEZING Atorvastatin Calcium (Lipitor -) 20 mg PO HS [facility] Last Admin: 06/28/18 21:47 Dose: 20 mg Carvedilol (Coreg -) 6.25 mg PO BID [facility] Last Admin: 06/29/18 09:33 Dose: 6.25 mg Furosemide (Lasix Injection -) 40 mg IVPUSH DAILY [facility] Last Admin: 06/29/18 09:34 Dose: Not Given Furosemide (Lasix -) 40 mg PO DAILY [facility] Last Admin: 06/29/18 09:33 Dose: 40 mg Ramipril (Altace -) 2.5 mg PO DAILY [facility] Last Admin: 06/29/18 09:33 Dose: 2.5 mg - Objective Vital Signs: Vital Signs Temperature 98 F 06/29/18 05:30 Pulse Rate 81 06/29/18 05:30 Respiratory Rate 20 06/29/18 05:30 Blood Pressure 113/61 06/29/18 05:30 O2 Sat by Pulse Oximetry (%) 97 06/28/18 21:00 Eyes: Yes: PERRL HENT: Yes: Atraumatic Neck: Yes: Supple Cardiovascular: Yes: Regular Rate and Rhythm, S1, S2 Respiratory: Yes: Diminished Gastrointestinal: Yes: Normal Bowel Sounds, Soft. No: Tenderness Edema: Yes Edema: LLE: 1+, RLE: 1+ Additional Findings/Remarks: - Review of Systems Constitutional: denies: Chills, Fever Cardiovascular: denies: Chest Pain. denies: Palpitations, (+) Shortness of Breath Respiratory: denies: Cough, Hemoptysis, Orthopnea, PND, (+) SOB, SOB on Exertion Gastrointestinal: denies: Diarrhea, Nausea. denies: Abdominal Pain, Constipation, Melena, Rectal Bleeding, Vomiting Genitourinary: denies: Dysuria, Hematuria Musculoskeletal: denies: Back Pain, Joint Pain Neurological: denies: Dizziness, Headache, Seizure, Syncope Labs: CBC, BMP 06/29/18 06:50 06/29/18 06:50 Problem List - Problems (1) CHF exacerbation Code(s): I50.9 - HEART FAILURE, UNSPECIFIED Qualifiers: Heart failure type: combined systolic and diastolic Qualified Code(s): I50.43 - 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) heart failure (2) Hyperlipidemia Code(s): E78.5 - HYPERLIPIDEMIA, UNSPECIFIED Qualifiers: Hyperlipidemia type: pure hypercholesterolemia Qualified Code(s): E78.00 - Pure hypercholesterolemia, unspecified; E78.0 - Pure hypercholesterolemia (4) Status post tricuspid valve repair Code(s): Z98.890 - OTHER SPECIFIED POSTPROCEDURAL STATES (5) Acute on chronic diastolic (congestive) heart failure Code(s): I50.33 - ACUTE ON CHRONIC DIASTOLIC (CONGESTIVE) HEART FAILURE (6) Hypertensive cardiomyopathy Code(s): I11.9 - HYPERTENSIVE HEART DISEASE WITHOUT HEART FAILURE; I42.9 - CARDIOMYOPATHY, UNSPECIFIED Qualifiers: Heart failure presence: with heart failure Qualified Code(s): I11.0 - Hypertensive heart disease with heart failure; I43 - Cardiomyopathy in diseases classified elsewhere (7) Mitral valvular prolapse Code(s): I34.1 - NONRHEUMATIC MITRAL (VALVE) PROLAPSE (8) Presence of single implantable cardioverter-defibrillator (ICD) Code(s): Z95.810 - PRESENCE OF AUTOMATIC (IMPLANTABLE) CARDIAC DEFIBRILLATOR (9) Sarcoidosis Code(s): D86.9 - SARCOIDOSIS, UNSPECIFIED (10) Severe mitral regurgitation Code(s): I34.0 - NONRHEUMATIC MITRAL (VALVE) INSUFFICIENCY (11) Shortness of breath Code(s): R06.02 - SHORTNESS OF BREATH Assessment/Plan 1. Acute on chronic systolic heart failure with underlying LV systolic dysfunction 2. Post bioprosthetic MV replacement and TV repair for MVP and mod-severe MR 3. AV block s/p ICD 4. Pulmonary sarcoidosis 5. Post-op AF (refused to take anticoagulation) 6. History of cerebellar bleed PLAN: 1. IV diuresis with monitoring renal function and electrolytes 2. Continue carvedilol 6.25 mg BID, Ramipril 2.5 mg QD, Lipitor 20 mg QHS and ASA 81 mg QD 3. Ambulate as tolerated 4. Consider LE Doppler US to assess for DVT 5. Echocardiography from Mar 2018 reviewed Further plans are to follow Trevor Loving MD
--- NOTE | 2018-06-29 11:39 | EKG ---
Test Reason : Blood Pressure : / mmHG Vent. Rate : 091 BPM Atrial Rate : 091 BPM P-R Int : 162 ms QRS Dur : 162 ms QT Int : 424 ms P-R-T Axes : 084 -64 117 degrees QTc Int : 521 ms POOR DATA QUALITY, INTERPRETATION MAY BE ADVERSELY AFFECTED Atrial-sensed ventricular-paced rhythm ABNORMAL ECG WHEN COMPARED WITH ECG OF 06-JUN-2018 22:35, NO SIGNIFICANT CHANGE WAS FOUND Confirmed by Jalen Farooq MD ([id number]) on 06/29/2018 11:39:02 AM Referred By: Confirmed By:Jalen Farooq MD
--- NOTE | 2018-06-29 16:39 | PN ---
Progress Note, Physician History of Present Illness: stable - Current Medication List Current Medications: Active Medications Acetaminophen (Tylenol -) 650 mg PO Q6H PRN PRN Reason: FEVER Last Admin: 06/29/18 09:34 Dose: 650 mg Albuterol Sulfate (Ventolin 0.083% Nebulizer Soln -) 1 amp NEB Q4H PRN PRN Reason: SHORT OF BREATH/WHEEZING Atorvastatin Calcium (Lipitor -) 20 mg PO HS [facility] Last Admin: 06/28/18 21:47 Dose: 20 mg Carvedilol (Coreg -) 6.25 mg PO BID [facility] Last Admin: 06/29/18 09:33 Dose: 6.25 mg Furosemide (Lasix Injection -) 40 mg IVPUSH DAILY [facility] Last Admin: 06/29/18 09:34 Dose: Not Given Furosemide (Lasix -) 40 mg PO DAILY [facility] Last Admin: 06/29/18 09:33 Dose: 40 mg Ramipril (Altace -) 2.5 mg PO DAILY [facility] Last Admin: 06/29/18 09:33 Dose: 2.5 mg - Objective Vital Signs: Vital Signs Temperature 98.5 F 06/29/18 15:00 Pulse Rate 86 06/29/18 15:00 Respiratory Rate 20 06/29/18 15:00 Blood Pressure 105/61 06/29/18 15:00 O2 Sat by Pulse Oximetry (%) 97 06/29/18 09:00 Constitutional: Yes: No Distress HENT: Yes: Atraumatic Neck: Yes: Supple Cardiovascular: Yes: Regular Rate and Rhythm Respiratory: Yes: CTA Bilaterally, Rhonchi Gastrointestinal: Yes: Normal Bowel Sounds Extremities: Yes: WNL Edema: No Peripheral Pulses WNL: Yes Neurological: Yes: Alert, Oriented Labs: CBC, BMP 06/29/18 06:50 06/29/18 06:50 Problem List - Problems (1) CHF exacerbation Assessment/Plan: iv lasix fu cmp Code(s): I50.9 - HEART FAILURE, UNSPECIFIED Qualifiers: Heart failure type: combined systolic and diastolic Qualified Code(s): I50.43 - 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) heart failure (2) Hypertensive cardiomyopathy Code(s): I11.9 - HYPERTENSIVE HEART DISEASE WITHOUT HEART FAILURE; I42.9 - CARDIOMYOPATHY, UNSPECIFIED Qualifiers: Heart failure presence: with heart failure Qualified Code(s): I11.0 - Hypertensive heart disease with heart failure; I43 - Cardiomyopathy in diseases classified elsewhere (3) Type 2 diabetes mellitus with foot ulcer Assessment/Plan: monitor bgms Code(s): E11.621 - TYPE 2 DIABETES MELLITUS WITH FOOT ULCER; L97.509 - NON- PRESSURE CHRONIC ULCER OTH PRT UNSP FOOT W UNSP SEVERITY
[2018-06-29] MEDS: ATORVASTATIN CA 20 MG TABLET (FP) PO SCH (21:09)
[2018-06-29] MEDS: ALBUTEROL SO4 0.083% IH SOL 2.5 MG/3 ML VIAL.NEB. NEB PRN (21:23)
[2018-06-30] MEDS: guaiFENesin 200 MG/10 ML 10 ML UNIT-DOSE CUPS PO PRN ×2 (07:05→21:32)
[2018-06-30] MEDS: CARVEDILOL 6.25 MG TABLET (FP) PO SCH ×2 (10:27→21:32)
[2018-06-30] MEDS: RAMIPRIL 2.5 MG CAPSULE (FP) PO SCH (10:27)
[2018-06-30] MEDS: FUROSEMIDE 20 MG TABLET (FP) PO SCH (10:27)
[2018-06-30] MEDS: FUROSEMIDE 40 MG/4 ML INJECTABLE VIAL IVPUSH SCH (10:27)
--- NOTE | 2018-06-30 11:24 | PN ---
Progress Note, Physician History of Present Illness: Dyspnea and cough improved with bronchodilators. Patient denies chest pain, palpitations, near or true syncope, diet or medication noncompliance, ICD discharge or NSAID use. - Current Medication List Current Medications: Active Medications Acetaminophen (Tylenol -) 650 mg PO Q6H PRN PRN Reason: FEVER Last Admin: 06/29/18 09:34 Dose: 650 mg Albuterol Sulfate (Ventolin 0.083% Nebulizer Soln -) 1 amp NEB Q4H PRN PRN Reason: SHORT OF BREATH/WHEEZING Last Admin: 06/29/18 21:23 Dose: 1 amp Atorvastatin Calcium (Lipitor -) 20 mg PO HS [facility] Last Admin: 06/29/18 21:09 Dose: 20 mg Carvedilol (Coreg -) 6.25 mg PO BID [facility] Last Admin: 06/30/18 10:27 Dose: 6.25 mg Furosemide (Lasix Injection -) 40 mg IVPUSH DAILY [facility] Last Admin: 06/30/18 10:27 Dose: Not Given Furosemide (Lasix -) 40 mg PO DAILY [facility] Last Admin: 06/30/18 10:27 Dose: 40 mg Guaifenesin (Robitussin -) 10 ml PO Q6H PRN PRN Reason: CPU Last Admin: 06/30/18 07:05 Dose: 10 ml Ramipril (Altace -) 2.5 mg PO DAILY [facility] Last Admin: 06/30/18 10:27 Dose: 2.5 mg - Objective Vital Signs: Vital Signs Temperature 98.8 F 06/30/18 07:00 Pulse Rate 94 H 06/30/18 07:00 Respiratory Rate 20 06/30/18 08:55 Blood Pressure 125/68 06/30/18 07:00 O2 Sat by Pulse Oximetry (%) 100 06/30/18 08:55 Constitutional: Yes: No Distress, Calm Neck: Yes: Supple Cardiovascular: Yes: Regular Rate and Rhythm Respiratory: Yes: Regular, Diminished Gastrointestinal: Yes: Normal Bowel Sounds, Soft, Abdomen, Obese Edema: Yes Edema: LLE: 1+, RLE: 1+ Labs: CBC, BMP 06/29/18 06:50 06/29/18 06:50 - ....Imaging EKG: Report Reviewed (Tele: V-paced) Problem List - Problems (2) Status post tricuspid valve repair Code(s): Z98.890 - OTHER SPECIFIED POSTPROCEDURAL STATES (3) Hyperlipidemia Code(s): E78.5 - HYPERLIPIDEMIA, UNSPECIFIED Qualifiers: Hyperlipidemia type: pure hypercholesterolemia Qualified Code(s): E78.00 - Pure hypercholesterolemia, unspecified; E78.0 - Pure hypercholesterolemia (4) CHF exacerbation Code(s): I50.9 - HEART FAILURE, UNSPECIFIED Qualifiers: Heart failure type: combined systolic and diastolic Qualified Code(s): I50.43 - 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) heart failure (5) Hypertensive cardiomyopathy Code(s): I11.9 - HYPERTENSIVE HEART DISEASE WITHOUT HEART FAILURE; I42.9 - CARDIOMYOPATHY, UNSPECIFIED Qualifiers: Heart failure presence: with heart failure Qualified Code(s): I11.0 - Hypertensive heart disease with heart failure; I43 - Cardiomyopathy in diseases classified elsewhere (6) Presence of single implantable cardioverter-defibrillator (ICD) Code(s): Z95.810 - PRESENCE OF AUTOMATIC (IMPLANTABLE) CARDIAC DEFIBRILLATOR (7) Sarcoidosis Code(s): D86.9 - SARCOIDOSIS, UNSPECIFIED Assessment/Plan 03/29/2018 Echo Conclusions:1. LV size is mildly increased. There is mild LVH. Left ventricular systolic function is moderately decreased. 2. Left atrial size is normal. Right atrial size is normal. 3. Right ventricular size is normal. The right ventricular systolic function is preserved. 4. The aortic valve is sclerotic without leaflet restriction. No aortic insufficiency is present. Aortic root dimension is normal. The ascending aorta is normal. 5. A bioprosthetic mitral valve is present. Mild mitral regurgitation is present. 6. The tricuspid valve is structurally normal. Mild tricuspid regurgitation is present. Pulmonic valve is not well seen but probably normal. 7. No pericardial effusion. 8. The pulmonary artery systolic pressure is at least 29 mmHg based on an RA pressure of 3 mmHg. 9. Linear echodensity in right cardiac chamber c/w with ICD lead. 1. Acute on chronic systolic heart failure with underlying LV systolic dysfunction 2. Post bioprosthetic MV replacement and TV repair for MVP and mod-severe MR 3. AV block s/p ICD 4. Pulmonary sarcoidosis 5. Post-op AF (refused to take anticoagulation) 6. History of cerebellar bleed PLAN: 1. Resumed oral diuresis with monitoring renal function and electrolytes 2. Continue carvedilol 6.25 mg BID, Ramipril 2.5 mg QD, Lipitor 20 mg QHS and ASA 81 mg QD 3. Ambulate with walker assistance as tolerated 4. BD, O2 as needed 5. Echocardiography from Mar 2018 reviewed 6. D/c planning
--- NOTE | 2018-06-30 13:08 | CON.ID ---
Consult Consult Specialty:: infectious diseases Referred by:: Reason for Consultation:: pneumonia - History of Present Illness Chief Complaint: cough,greenish sputum production History of Present Illness: 62-year-old female presents to ED with complaints of continual cough despite taking Z-Ben for 5 days and prednisone 20 mg. according to the patient she has been taking the medications and she has not become better she has a bronchitic cough and it seems she is non compliant patient also mentions that her sputum production has increased and she has been producing greenish sputum currently she looks comfortable but continues to cough - History Source History Provided By: Patient Limitations to Obtaining History: Other - Past Medical History Cardio/Vascular: Yes: CHF, HTN Pulmonary: Yes: Other (Sarcoid) - Past Surgical History Past Surgical History: Yes: Permanent Pacemaker - Alcohol/Substance Use Hx Alcohol Use: No - Smoking History Smoking history: Never smoked Have you smoked in the past 12 months: No Aproximately how many cigarettes per day: 0 If you are a former smoker, when did you quit?: 36 YRS AGO Home Medications - Allergies Allergies/Adverse Reactions: Allergies Allergy/AdvReac Type Severity Reaction Status Date / Time amoxicillin trihydrate AdvReac Severe Verified 06/06/18 21:38 [From Augmentin] potassium clavulanate AdvReac Severe Verified 06/06/18 21:38 [From Augmentin] - Home Medications Home Medications: Ambulatory Orders Tolterodine Tartrate 2 mg PO DAILY 02/15/15 Cholecalciferol (Vitamin D3) [Vitamin D3] 2,000 unit PO DAILY 03/08/15 Atorvastatin Ca [Lipitor] 20 mg PO HS 06/04/16 Carvedilol 6.25 mg PO BID 06/04/16 Omeprazole 20 mg PO BID 06/04/16 Ramipril 2.5 mg PO DAILY 06/04/16 Albuterol 0.083% Nebulizer Sheeba 1 neb IH PRN 04/05/18 Ecotrin 81 mg PO DAILY 04/05/18 Proair Hfa 108 mcg IH PRN 04/05/18 Furosemide [Lasix] 40 mg PO DAILY 06/07/18 Review of Systems - Review of Systems Constitutional: reports: No Symptoms Eyes: reports: No Symptoms HENT: reports: No Symptoms Neck: reports: No Symptoms Cardiovascular: reports: No Symptoms Respiratory: reports: Cough, SOB on Exertion, Other (sputum prodction) Musculoskeletal: reports: No Symptoms Integumentary: reports: No Symptoms Neurological: reports: No Symptoms Endocrine: reports: No Symptoms Hematology/Lymphatic: reports: No Symptoms Psychiatric: reports: No Symptoms Physical Exam Vital Signs: Vital Signs Temperature 98.8 F 06/30/18 07:00 Pulse Rate 94 H 06/30/18 07:00 Respiratory Rate 20 06/30/18 08:55 Blood Pressure 125/68 06/30/18 07:00 O2 Sat by Pulse Oximetry (%) 100 06/30/18 08:55 Constitutional: Yes: Well Nourished, No Distress, Calm Cardiovascular: Yes: Regular Rate and Rhythm Respiratory: Yes: Poor Air Entry, Rhonchi, Other Gastrointestinal: Yes: Normal Bowel Sounds, Soft Musculoskeletal: Yes: WNL Extremities: Yes: WNL Neurological: Yes: Alert, Oriented Psychiatric: Yes: Alert, Oriented Labs: CBC, BMP 06/29/18 06:50 06/29/18 06:50 Imaging - Results Chest X-ray: Report Reviewed, Image Reviewed Assessment/Plan Problem List - Problems (1) CHF exacerbation Code(s): I50.9 - HEART FAILURE, UNSPECIFIED Qualifiers: Heart failure type: combined systolic and diastolic Qualified Code(s): I50.43 - 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) heart failure (2) Hyperlipidemia Code(s): E78.5 - HYPERLIPIDEMIA, UNSPECIFIED Qualifiers: Hyperlipidemia type: pure hypercholesterolemia Qualified Code(s): E78.00 - Pure hypercholesterolemia, unspecified; E78.0 - Pure hypercholesterolemia (4) Status post tricuspid valve repair Code(s): Z98.890 - OTHER SPECIFIED POSTPROCEDURAL STATES (5) Acute on chronic diastolic (congestive) heart failure Code(s): I50.33 - ACUTE ON CHRONIC DIASTOLIC (CONGESTIVE) HEART FAILURE (6) Hypertensive cardiomyopathy Code(s): I11.9 - HYPERTENSIVE HEART DISEASE WITHOUT HEART FAILURE; I42.9 - CARDIOMYOPATHY, UNSPECIFIED Qualifiers: Heart failure presence: with heart failure Qualified Code(s): I11.0 - Hypertensive heart disease with heart failure; I43 - Cardiomyopathy in diseases classified elsewhere (7) Mitral valvular prolapse Code(s): I34.1 - NONRHEUMATIC MITRAL (VALVE) PROLAPSE (8) Presence of single implantable cardioverter-defibrillator (ICD) Code(s): Z95.810 - PRESENCE OF AUTOMATIC (IMPLANTABLE) CARDIAC DEFIBRILLATOR (9) Sarcoidosis Code(s): D86.9 - SARCOIDOSIS, UNSPECIFIED (10) Severe mitral regurgitation Code(s): I34.0 - NONRHEUMATIC MITRAL (VALVE) INSUFFICIENCY (11) Shortness of breath Code(s): R06.02 - SHORTNESS OF BREATH pneumonia--r/o i am worried about patient producing greenish sputum plan\ will start patient on aztreonam incentive jazmine await for all reports rest as per the team
--- NOTE | 2018-06-30 13:14 | PN ---
Progress Note, Physician History of Present Illness: says she was coughing all night was very uncomfortable - Current Medication List Current Medications: Active Medications Acetaminophen (Tylenol -) 650 mg PO Q6H PRN PRN Reason: FEVER Last Admin: 06/29/18 09:34 Dose: 650 mg Albuterol Sulfate (Ventolin 0.083% Nebulizer Soln -) 1 amp NEB Q4H PRN PRN Reason: SHORT OF BREATH/WHEEZING Last Admin: 06/29/18 21:23 Dose: 1 amp Atorvastatin Calcium (Lipitor -) 20 mg PO HS [facility] Last Admin: 06/29/18 21:09 Dose: 20 mg Carvedilol (Coreg -) 6.25 mg PO BID [facility] Last Admin: 06/30/18 10:27 Dose: 6.25 mg Furosemide (Lasix Injection -) 40 mg IVPUSH DAILY [facility] Last Admin: 06/30/18 10:27 Dose: Not Given Furosemide (Lasix -) 40 mg PO DAILY [facility] Last Admin: 06/30/18 10:27 Dose: 40 mg Guaifenesin (Robitussin -) 10 ml PO Q6H PRN PRN Reason: [facility] Last Admin: 06/30/18 07:05 Dose: 10 ml Aztreonam 1 gm/ Dextrose 50 mls @ 100 mls/hr IVPB Q8H-IV [facility]; Protocol Ramipril (Altace -) 2.5 mg PO DAILY [facility] Last Admin: 06/30/18 10:27 Dose: 2.5 mg - Objective Vital Signs: Vital Signs Temperature 98.8 F 06/30/18 07:00 Pulse Rate 94 H 06/30/18 07:00 Respiratory Rate 20 06/30/18 08:55 Blood Pressure 125/68 06/30/18 07:00 O2 Sat by Pulse Oximetry (%) 100 06/30/18 08:55 Constitutional: Yes: Calm, Mild Distress Cardiovascular: Yes: S1, S2 Respiratory: Yes: Poor Air Entry, Rhonchi, Other Gastrointestinal: Yes: Normal Bowel Sounds, Soft Musculoskeletal: Yes: WNL Extremities: Yes: WNL Neurological: Yes: Alert, Oriented Psychiatric: Yes: Alert, Oriented Labs: CBC, BMP 06/29/18 06:50 06/29/18 06:50 Assessment/Plan Problem List - Problems (1) CHF exacerbation Code(s): I50.9 - HEART FAILURE, UNSPECIFIED Qualifiers: Heart failure type: combined systolic and diastolic Qualified Code(s): I50.43 - 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) heart failure (2) Hyperlipidemia Code(s): E78.5 - HYPERLIPIDEMIA, UNSPECIFIED Qualifiers: Hyperlipidemia type: pure hypercholesterolemia Qualified Code(s): E78.00 - Pure hypercholesterolemia, unspecified; E78.0 - Pure hypercholesterolemia (4) Status post tricuspid valve repair Code(s): Z98.890 - OTHER SPECIFIED POSTPROCEDURAL STATES (5) Acute on chronic diastolic (congestive) heart failure Code(s): I50.33 - ACUTE ON CHRONIC DIASTOLIC (CONGESTIVE) HEART FAILURE (6) Hypertensive cardiomyopathy Code(s): I11.9 - HYPERTENSIVE HEART DISEASE WITHOUT HEART FAILURE; I42.9 - CARDIOMYOPATHY, UNSPECIFIED Qualifiers: Heart failure presence: with heart failure Qualified Code(s): I11.0 - Hypertensive heart disease with heart failure; I43 - Cardiomyopathy in diseases classified elsewhere (7) Mitral valvular prolapse Code(s): I34.1 - NONRHEUMATIC MITRAL (VALVE) PROLAPSE (8) Presence of single implantable cardioverter-defibrillator (ICD) Code(s): Z95.810 - PRESENCE OF AUTOMATIC (IMPLANTABLE) CARDIAC DEFIBRILLATOR (9) Sarcoidosis Code(s): D86.9 - SARCOIDOSIS, UNSPECIFIED (10) Severe mitral regurgitation Code(s): I34.0 - NONRHEUMATIC MITRAL (VALVE) INSUFFICIENCY (11) Shortness of breath Code(s): R06.02 - SHORTNESS OF BREATH pneumonia--r/o i am worried about patient producing greenish sputum plan\ continue abx if patient continues to cough will get a ct scan of the chest rest as per th eteam incentive jazmine
[2018-06-30] MEDS ORDERED: DEXTROSE 5%-WATER - 50 ML IVPB ONE ×2 (14:55→17:02)
[2018-06-30] MEDS ORDERED: AZTREONAM 1 GM VIAL (RESTRICTED TO ID) ONE ×2 (14:55→17:02)
[2018-06-30] MEDS: AZTREONAM 1 GM in DEXTROSE 5%-WATER - 50 ML IVPB SCH ×2 (14:58→18:02)
--- NOTE | 2018-06-30 17:31 | PN ---
Progress Note, Physician History of Present Illness: cough - Current Medication List Current Medications: Active Medications Acetaminophen (Tylenol -) 650 mg PO Q6H PRN PRN Reason: FEVER Last Admin: 06/29/18 09:34 Dose: 650 mg Albuterol Sulfate (Ventolin 0.083% Nebulizer Soln -) 1 amp NEB Q4H PRN PRN Reason: SHORT OF BREATH/WHEEZING Last Admin: 06/29/18 21:23 Dose: 1 amp Atorvastatin Calcium (Lipitor -) 20 mg PO HS [facility] Last Admin: 06/29/18 21:09 Dose: 20 mg Carvedilol (Coreg -) 6.25 mg PO BID [facility] Last Admin: 06/30/18 10:27 Dose: 6.25 mg Furosemide (Lasix Injection -) 40 mg IVPUSH DAILY [facility] Last Admin: 06/30/18 10:27 Dose: Not Given Furosemide (Lasix -) 40 mg PO DAILY [facility] Last Admin: 06/30/18 10:27 Dose: 40 mg Guaifenesin (Robitussin -) 10 ml PO Q6H PRN PRN Reason: [facility] Last Admin: 06/30/18 07:05 Dose: 10 ml Aztreonam 1 gm/ Dextrose 50 mls @ 100 mls/hr IVPB Q8H-IV [facility]; Protocol Last Admin: 06/30/18 14:58 Dose: 100 mls/hr Ramipril (Altace -) 2.5 mg PO DAILY [facility] Last Admin: 06/30/18 10:27 Dose: 2.5 mg - Objective Vital Signs: Vital Signs Temperature 98.2 F 06/30/18 13:53 Pulse Rate 109 H 06/30/18 13:53 Respiratory Rate 22 H 06/30/18 13:53 Blood Pressure 122/52 L 06/30/18 13:53 O2 Sat by Pulse Oximetry (%) 100 06/30/18 08:55 Constitutional: Yes: No Distress HENT: Yes: Atraumatic Neck: Yes: Supple Cardiovascular: Yes: Regular Rate and Rhythm Respiratory: Yes: CTA Bilaterally Gastrointestinal: Yes: Normal Bowel Sounds Extremities: Yes: WNL Edema: No Peripheral Pulses WNL: Yes Neurological: Yes: Alert, Oriented Labs: CBC, BMP 06/29/18 06:50 06/29/18 06:50 Problem List - Problems (1) CHF exacerbation Code(s): I50.9 - HEART FAILURE, UNSPECIFIED Qualifiers: Heart failure type: combined systolic and diastolic Qualified Code(s): I50.43 - 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) heart failure (2) Hypertensive cardiomyopathy Code(s): I11.9 - HYPERTENSIVE HEART DISEASE WITHOUT HEART FAILURE; I42.9 - CARDIOMYOPATHY, UNSPECIFIED Qualifiers: Heart failure presence: with heart failure Qualified Code(s): I11.0 - Hypertensive heart disease with heart failure; I43 - Cardiomyopathy in diseases classified elsewhere (3) Type 2 diabetes mellitus with foot ulcer Code(s): E11.621 - TYPE 2 DIABETES MELLITUS WITH FOOT ULCER; L97.509 - NON- PRESSURE CHRONIC ULCER OTH PRT UNSP FOOT W UNSP SEVERITY (4) Cough Assessment/Plan: on abx to cover for pna Code(s): R05 - COUGH
[2018-06-30] MEDS: ATORVASTATIN CA 20 MG TABLET (FP) PO SCH (21:32)
[2018-07-01] MEDS ORDERED: AZTREONAM 1 GM VIAL (RESTRICTED TO ID) ONE ×3 (00:52→16:59)
[2018-07-01] MEDS ORDERED: DEXTROSE 5%-WATER - 50 ML IVPB ONE ×3 (00:53→16:59)
[2018-07-01] MEDS: ALBUTEROL SO4 0.083% IH SOL 2.5 MG/3 ML VIAL.NEB. NEB PRN ×3 (01:16→15:22)
[2018-07-01] MEDS: AZTREONAM 1 GM in DEXTROSE 5%-WATER - 50 ML IVPB SCH ×3 (01:17→17:59)
--- NOTE | 2018-07-01 09:59 | PN ---
Progress Note, Physician History of Present Illness: Dyspnea and cough improved with bronchodilators. - Current Medication List Current Medications: Active Medications Acetaminophen (Tylenol -) 650 mg PO Q6H PRN PRN Reason: FEVER Last Admin: 06/29/18 09:34 Dose: 650 mg Albuterol Sulfate (Ventolin 0.083% Nebulizer Soln -) 1 amp NEB Q4H PRN PRN Reason: SHORT OF BREATH/WHEEZING Last Admin: 07/01/18 06:25 Dose: 1 amp Atorvastatin Calcium (Lipitor -) 20 mg PO HS [facility] Last Admin: 06/30/18 21:32 Dose: 20 mg Carvedilol (Coreg -) 6.25 mg PO BID [facility] Last Admin: 06/30/18 21:32 Dose: 6.25 mg Furosemide (Lasix Injection -) 40 mg IVPUSH DAILY [facility] Last Admin: 06/30/18 10:27 Dose: Not Given Furosemide (Lasix -) 40 mg PO DAILY [facility] Last Admin: 06/30/18 10:27 Dose: 40 mg Guaifenesin (Robitussin -) 10 ml PO Q6H PRN PRN Reason: [facility] Last Admin: 06/30/18 21:32 Dose: 10 ml Aztreonam 1 gm/ Dextrose 50 mls @ 100 mls/hr IVPB Q8H-IV CHANG; Protocol Last Admin: 07/01/18 01:17 Dose: 100 mls/hr Ramipril (Altace -) 2.5 mg PO DAILY [facility] Last Admin: 06/30/18 10:27 Dose: 2.5 mg - Objective Vital Signs: Vital Signs Temperature 98.2 F 07/01/18 05:46 Pulse Rate 115 H 07/01/18 05:46 Respiratory Rate 20 07/01/18 05:46 Blood Pressure 133/69 07/01/18 05:46 O2 Sat by Pulse Oximetry (%) 97 06/30/18 20:22 Constitutional: Yes: No Distress, Calm Neck: Yes: Supple Cardiovascular: Yes: Regular Rate and Rhythm Respiratory: Yes: Regular, Diminished, Wheezes Gastrointestinal: Yes: Normal Bowel Sounds, Soft, Abdomen, Obese Edema: Yes Edema: LLE: 1+, RLE: 1+ Labs: CBC, BMP 06/29/18 06:50 06/29/18 06:50 Problem List - Problems (2) Status post tricuspid valve repair Code(s): Z98.890 - OTHER SPECIFIED POSTPROCEDURAL STATES (3) Hyperlipidemia Code(s): E78.5 - HYPERLIPIDEMIA, UNSPECIFIED Qualifiers: Hyperlipidemia type: pure hypercholesterolemia Qualified Code(s): E78.00 - Pure hypercholesterolemia, unspecified; E78.0 - Pure hypercholesterolemia (4) CHF exacerbation Code(s): I50.9 - HEART FAILURE, UNSPECIFIED Qualifiers: Heart failure type: combined systolic and diastolic Qualified Code(s): I50.43 - 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) heart failure (5) Hypertensive cardiomyopathy Code(s): I11.9 - HYPERTENSIVE HEART DISEASE WITHOUT HEART FAILURE; I42.9 - CARDIOMYOPATHY, UNSPECIFIED Qualifiers: Heart failure presence: with heart failure Qualified Code(s): I11.0 - Hypertensive heart disease with heart failure; I43 - Cardiomyopathy in diseases classified elsewhere (6) Presence of single implantable cardioverter-defibrillator (ICD) Code(s): Z95.810 - PRESENCE OF AUTOMATIC (IMPLANTABLE) CARDIAC DEFIBRILLATOR (7) Sarcoidosis Code(s): D86.9 - SARCOIDOSIS, UNSPECIFIED Assessment/Plan 03/29/2018 Echo Conclusions:1. LV size is mildly increased. There is mild LVH. Left ventricular systolic function is moderately decreased. 2. Left atrial size is normal. Right atrial size is normal. 3. Right ventricular size is normal. The right ventricular systolic function is preserved. 4. The aortic valve is sclerotic without leaflet restriction. No aortic insufficiency is present. Aortic root dimension is normal. The ascending aorta is normal. 5. A bioprosthetic mitral valve is present. Mild mitral regurgitation is present. 6. The tricuspid valve is structurally normal. Mild tricuspid regurgitation is present. Pulmonic valve is not well seen but probably normal. 7. No pericardial effusion. 8. The pulmonary artery systolic pressure is at least 29 mmHg based on an RA pressure of 3 mmHg. 9. Linear echodensity in right cardiac chamber c/w with ICD lead. 1. Acute on chronic systolic heart failure with underlying LV systolic dysfunction 2. Post bioprosthetic MV replacement and TV repair for MVP and mod-severe MR 3. AV block s/p ICD 4. Pulmonary sarcoidosis 5. Post-op AF (refused to take anticoagulation) 6. History of cerebellar bleed PLAN: 1. Resumed oral diuresis with monitoring renal function and electrolytes 2. Continue carvedilol 6.25 mg BID, Ramipril 2.5 mg QD, Lipitor 20 mg QHS and ASA 81 mg QD 3. Ambulate with walker assistance as tolerated 4. BD, O2 as needed, placed on abx 5. Echocardiography from Mar 2018 reviewed 6. D/c planning
[2018-07-01] MEDS: guaiFENesin 200 MG/10 ML 10 ML UNIT-DOSE CUPS PO PRN (10:08)
[2018-07-01] MEDS: RAMIPRIL 2.5 MG CAPSULE (FP) PO SCH (10:08)
[2018-07-01] MEDS: FUROSEMIDE 20 MG TABLET (FP) PO SCH (10:08)
[2018-07-01] MEDS: FUROSEMIDE 40 MG/4 ML INJECTABLE VIAL IVPUSH SCH (10:10)
[2018-07-01] MEDS: CARVEDILOL 6.25 MG TABLET (FP) PO SCH ×2 (10:15→21:14)
--- NOTE | 2018-07-01 10:25 | PN ---
Progress Note, Physician History of Present Illness: dyspnoea and c ough improved with nebs according to the patient still with cough - Current Medication List Current Medications: Active Medications Acetaminophen (Tylenol -) 650 mg PO Q6H PRN PRN Reason: FEVER Last Admin: 06/29/18 09:34 Dose: 650 mg Albuterol Sulfate (Ventolin 0.083% Nebulizer Soln -) 1 amp NEB Q4H PRN PRN Reason: SHORT OF BREATH/WHEEZING Last Admin: 07/01/18 06:25 Dose: 1 amp Atorvastatin Calcium (Lipitor -) 20 mg PO HS [facility] Last Admin: 06/30/18 21:32 Dose: 20 mg Carvedilol (Coreg -) 6.25 mg PO BID [facility] Last Admin: 07/01/18 10:15 Dose: 6.25 mg Furosemide (Lasix -) 40 mg PO DAILY [facility] Last Admin: 07/01/18 10:08 Dose: 40 mg Guaifenesin (Robitussin -) 10 ml PO Q6H PRN PRN Reason: [facility] Last Admin: 07/01/18 10:08 Dose: 10 ml Aztreonam 1 gm/ Dextrose 50 mls @ 100 mls/hr IVPB Q8H-IV CHANG; Protocol Last Admin: 07/01/18 10:14 Dose: 100 mls/hr Ramipril (Altace -) 2.5 mg PO DAILY [facility] Last Admin: 07/01/18 10:08 Dose: 2.5 mg - Objective Vital Signs: Vital Signs Temperature 98.2 F 07/01/18 05:46 Pulse Rate 115 H 07/01/18 05:46 Respiratory Rate 20 07/01/18 05:46 Blood Pressure 133/69 07/01/18 05:46 O2 Sat by Pulse Oximetry (%) 97 06/30/18 20:22 Constitutional: Yes: Calm, Mild Distress Cardiovascular: Yes: S1, S2 Respiratory: Yes: Regular, Rhonchi, Other Gastrointestinal: Yes: Normal Bowel Sounds, Soft Musculoskeletal: Yes: WNL Extremities: Yes: WNL Neurological: Yes: Alert, Oriented Psychiatric: Yes: Alert, Oriented Labs: CBC, BMP 06/29/18 06:50 06/29/18 06:50 Assessment/Plan Problem List - Problems (1) CHF exacerbation Code(s): I50.9 - HEART FAILURE, UNSPECIFIED Qualifiers: Heart failure type: combined systolic and diastolic Qualified Code(s): I50.43 - 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) heart failure (2) Hyperlipidemia Code(s): E78.5 - HYPERLIPIDEMIA, UNSPECIFIED Qualifiers: Hyperlipidemia type: pure hypercholesterolemia Qualified Code(s): E78.00 - Pure hypercholesterolemia, unspecified; E78.0 - Pure hypercholesterolemia (4) Status post tricuspid valve repair Code(s): Z98.890 - OTHER SPECIFIED POSTPROCEDURAL STATES (5) Acute on chronic diastolic (congestive) heart failure Code(s): I50.33 - ACUTE ON CHRONIC DIASTOLIC (CONGESTIVE) HEART FAILURE (6) Hypertensive cardiomyopathy Code(s): I11.9 - HYPERTENSIVE HEART DISEASE WITHOUT HEART FAILURE; I42.9 - CARDIOMYOPATHY, UNSPECIFIED Qualifiers: Heart failure presence: with heart failure Qualified Code(s): I11.0 - Hypertensive heart disease with heart failure; I43 - Cardiomyopathy in diseases classified elsewhere (7) Mitral valvular prolapse Code(s): I34.1 - NONRHEUMATIC MITRAL (VALVE) PROLAPSE (8) Presence of single implantable cardioverter-defibrillator (ICD) Code(s): Z95.810 - PRESENCE OF AUTOMATIC (IMPLANTABLE) CARDIAC DEFIBRILLATOR (9) Sarcoidosis Code(s): D86.9 - SARCOIDOSIS, UNSPECIFIED (10) Severe mitral regurgitation Code(s): I34.0 - NONRHEUMATIC MITRAL (VALVE) INSUFFICIENCY (11) Shortness of breath Code(s): R06.02 - SHORTNESS OF BREATH pneumonia--r/o plan\ continue abx will change to po tomorrow
--- NOTE | 2018-07-01 16:58 | PN ---
Progress Note, Physician - Current Medication List Current Medications: Active Medications Acetaminophen (Tylenol -) 650 mg PO Q6H PRN PRN Reason: FEVER Last Admin: 06/29/18 09:34 Dose: 650 mg Albuterol Sulfate (Ventolin 0.083% Nebulizer Soln -) 1 amp NEB Q4H PRN PRN Reason: SHORT OF BREATH/WHEEZING Last Admin: 07/01/18 15:22 Dose: 1 amp Atorvastatin Calcium (Lipitor -) 20 mg PO HS [facility] Last Admin: 06/30/18 21:32 Dose: 20 mg Carvedilol (Coreg -) 6.25 mg PO BID [facility] Last Admin: 07/01/18 10:15 Dose: 6.25 mg Furosemide (Lasix -) 40 mg PO DAILY [facility] Last Admin: 07/01/18 10:08 Dose: 40 mg Guaifenesin (Robitussin -) 10 ml PO Q6H PRN PRN Reason: [facility] Last Admin: 07/01/18 10:08 Dose: 10 ml Aztreonam 1 gm/ Dextrose 50 mls @ 100 mls/hr IVPB Q8H-IV CHANG; Protocol Last Admin: 07/01/18 10:14 Dose: 100 mls/hr Ramipril (Altace -) 2.5 mg PO DAILY [facility] Last Admin: 07/01/18 10:08 Dose: 2.5 mg - Objective Vital Signs: Vital Signs Temperature 97.9 F 07/01/18 14:48 Pulse Rate 102 H 07/01/18 14:48 Respiratory Rate 20 07/01/18 14:48 Blood Pressure 114/53 L 07/01/18 14:48 O2 Sat by Pulse Oximetry (%) 97 06/30/18 20:22 Constitutional: Yes: No Distress HENT: Yes: Atraumatic Neck: Yes: Supple Cardiovascular: Yes: Regular Rate and Rhythm Respiratory: Yes: CTA Bilaterally Gastrointestinal: Yes: Normal Bowel Sounds Extremities: Yes: WNL Edema: No Peripheral Pulses WNL: Yes Neurological: Yes: Alert, Oriented Labs: CBC, BMP 06/29/18 06:50 06/29/18 06:50 Problem List - Problems (1) CHF exacerbation Assessment/Plan: iv lasix fu cmp Code(s): I50.9 - HEART FAILURE, UNSPECIFIED Qualifiers: Heart failure type: combined systolic and diastolic Qualified Code(s): I50.43 - 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) heart failure (2) Hypertensive cardiomyopathy Code(s): I11.9 - HYPERTENSIVE HEART DISEASE WITHOUT HEART FAILURE; I42.9 - CARDIOMYOPATHY, UNSPECIFIED Qualifiers: Heart failure presence: with heart failure Qualified Code(s): I11.0 - Hypertensive heart disease with heart failure; I43 - Cardiomyopathy in diseases classified elsewhere (3) Type 2 diabetes mellitus with foot ulcer Assessment/Plan: monitor bgms Code(s): E11.621 - TYPE 2 DIABETES MELLITUS WITH FOOT ULCER; L97.509 - NON- PRESSURE CHRONIC ULCER OTH PRT UNSP FOOT W UNSP SEVERITY (4) Cough Assessment/Plan: on abx to cover for pna Code(s): R05 - COUGH Assessment/Plan wants to go home tomorrow d/c on po levaquin...per ID ask patient she said she is not allergic
--- NOTE | 2018-07-01 17:33 | DS ---
Physical Examination Vital Signs: Vital Signs Temperature 97.9 F 07/01/18 14:48 Pulse Rate 102 H 07/01/18 14:48 Respiratory Rate 20 07/01/18 14:48 Blood Pressure 114/53 L 07/01/18 14:48 O2 Sat by Pulse Oximetry (%) 97 06/30/18 20:22 Labs: CBC, BMP 06/29/18 06:50 06/29/18 06:50 Discharge Summary Reason For Visit: ACUTE ON CHRONIC CONGESTIVE HEART FAILURE Current Active Problems CHF exacerbation (Acute) Cough (Acute) Hyperlipidemia (Acute) S/P mitral valve replacement with bioprosthetic valve (Acute) Status post tricuspid valve repair (Acute) - Instructions Diet, Activity, Other Instructions: cough syrup as needed see your doctor in 2-3 days - Home Medications Comprehensive Discharge Medication List: Ambulatory Orders Tolterodine Tartrate 2 mg PO DAILY 02/15/15 Cholecalciferol (Vitamin D3) [Vitamin D3] 2,000 unit PO DAILY 03/08/15 Atorvastatin Ca [Lipitor] 20 mg PO HS 06/04/16 Carvedilol 6.25 mg PO BID 06/04/16 Omeprazole 20 mg PO BID 06/04/16 Ramipril 2.5 mg PO DAILY 06/04/16 Albuterol 0.083% Nebulizer Sheeba 1 neb IH PRN 04/05/18 Ecotrin 81 mg PO DAILY 04/05/18 Proair Hfa 108 mcg IH PRN 04/05/18 Furosemide [Lasix] 40 mg PO DAILY 06/07/18 Levofloxacin [Levaquin] 750 mg PO DAILY #7 tablet 07/01/18
[2018-07-01] MEDS: ATORVASTATIN CA 20 MG TABLET (FP) PO SCH (21:14)
[2018-07-02] MEDS ORDERED: DEXTROSE 5%-WATER - 50 ML IVPB ONE (01:09)
[2018-07-02] MEDS ORDERED: AZTREONAM 1 GM VIAL (RESTRICTED TO ID) ONE (01:09)
[2018-07-02] MEDS: AZTREONAM 1 GM in DEXTROSE 5%-WATER - 50 ML IVPB SCH ×2 (01:38→10:00)
[2018-07-02] MEDS: ALBUTEROL SO4 0.083% IH SOL 2.5 MG/3 ML VIAL.NEB. NEB PRN (02:16)
[2018-07-02 09:12] VITALS: BP 133/54; PULSE 90; TEMP 98.5
[2018-07-02] MEDS: CARVEDILOL 6.25 MG TABLET (FP) PO SCH (09:59)
[2018-07-02] MEDS: RAMIPRIL 2.5 MG CAPSULE (FP) PO SCH (09:59)
[2018-07-02] MEDS: FUROSEMIDE 20 MG TABLET (FP) PO SCH (10:00)
--- NOTE | 2018-07-02 16:09 | DS ---
Physical Examination Vital Signs: Vital Signs Temperature 98.5 F 07/02/18 09:00 Pulse Rate 90 07/02/18 09:00 Respiratory Rate 20 07/02/18 09:00 Blood Pressure 133/54 L 07/02/18 09:00 O2 Sat by Pulse Oximetry (%) 96 07/02/18 09:00 Constitutional: Yes: No Distress HENT: Yes: Atraumatic Neck: Yes: Supple Cardiovascular: Yes: Regular Rate and Rhythm Respiratory: Yes: CTA Bilaterally Gastrointestinal: Yes: Normal Bowel Sounds Extremities: Yes: WNL Edema: No Peripheral Pulses WNL: Yes Neurological: Yes: Alert, Oriented Labs: CBC, BMP 06/29/18 06:50 06/29/18 06:50 Discharge Summary Reason For Visit: ACUTE ON CHRONIC CONGESTIVE HEART FAILURE - Instructions Diet, Activity, Other Instructions: cough syrup as needed see your doctor in 2-3 days Disposition: HOME - Home Medications Comprehensive Discharge Medication List: Ambulatory Orders Tolterodine Tartrate 2 mg PO DAILY 02/15/15 Cholecalciferol (Vitamin D3) [Vitamin D3] 2,000 unit PO DAILY 03/08/15 Atorvastatin Ca [Lipitor] 20 mg PO HS 06/04/16 Carvedilol 6.25 mg PO BID 06/04/16 Omeprazole 20 mg PO BID 06/04/16 Ramipril 2.5 mg PO DAILY 06/04/16 Albuterol 0.083% Nebulizer Sheeba 1 neb IH PRN 04/05/18 Ecotrin 81 mg PO DAILY 04/05/18 Proair Hfa 108 mcg IH PRN 04/05/18 Furosemide [Lasix] 40 mg PO DAILY 06/07/18 Levofloxacin [Levaquin] 750 mg PO DAILY #7 tablet 07/01/18 dc home fu pmd 2-3 days
== END 2018-07-02 10:13 | disposition home or self-care (01) | DRG 291 ==
LOC: JER 10:59 → JERBED 14:13 → J4W 17:37
PROVIDERS: ADMIT Internal Medicine; ATTEND Internal Medicine
DX: I11.0 Hypertensive heart disease with heart failure (principal); J18.9 Pneumonia, unspecified organism; I50.43 Acute on chronic combined systolic (congestive) and diastolic (congestive) heart failure; R05 Cough; I43 Cardiomyopathy in diseases classified elsewhere; D86.9 Sarcoidosis, unspecified; E11.621 Type 2 diabetes mellitus with foot ulcer; I48.91 Unspecified atrial fibrillation; I34.0 Nonrheumatic mitral (valve) insufficiency; E66.9 Obesity, unspecified; Z68.39 Body mass index [BMI] 39.0-39.9, adult; Z95.810 Presence of automatic (implantable) cardiac defibrillator; Z87.891 Personal history of nicotine dependence
CPT/HCPCS: 36415; 71046-TC-FY; 80053; 81003; 82962; 83880; 85025; 93005; 93010; 94640; 99284-25

== ENCOUNTER 2018-09-01 10:25 | Emergency (ER) | payer BC ==
[2018-09-01 10:32] VITALS: BP 131/69; PULSE 96; TEMP 99.1; BMI 37.0
[2018-09-01] MEDS ORDERED: FAMOTIDINE 20 MG/50 ML IVPB 20 MG/50 ML MG IVPB ONE ×3 (11:16→13:34)
[2018-09-01] MEDS ORDERED: MAG HYDROX/AL HYDROX/SIMETH 30 ML UNIT-DOSE CUP PO ONE (11:16)
--- NOTE | 2018-09-01 11:20 | PDOC ---
History of Present Illness - General Chief Complaint: Diarrhea Stated Complaint: ABD PAIN / DIARRHEA Time Seen by Provider: 09/01/18 11:06 History Source: Patient Exam Limitations: Clinical Condition - History of Present Illness Initial Comments: 09/01/18 11:16 Patient with history of multiple comorbidities, CHF, GERD, hyperlipidemia and COPD present with complaint of three-day history of diarrhea and unable to keep any food down. Patient reported having 5 episodes of diarrhea 3 days ago and came yesterday. Patient has not been taking lisinopril, Lasix medication for CHF for the past 3 days. Patient reported last time she was noncompliant with medication she had effusion in the lungs. Denies shortness of breath, chest pain , palpitation. Patient reported taking Pepto-Bismol for diarrhea this morning. Denies nausea or vomiting. Timing/Duration: other (3 days) Past History - Past Medical History Allergies/Adverse Reactions: Allergies Allergy/AdvReac Type Severity Reaction Status Date / Time amoxicillin trihydrate AdvReac Severe Verified 09/01/18 10:26 [From Augmentin] potassium clavulanate AdvReac Severe Verified 09/01/18 10:26 [From Augmentin] Home Medications: Ambulatory Orders Tolterodine Tartrate 2 mg PO DAILY 02/15/15 Cholecalciferol (Vitamin D3) [Vitamin D3] 5,000 unit PO DAILY 03/08/15 Atorvastatin Ca [Lipitor] 20 mg PO HS 06/04/16 Carvedilol 6.25 mg PO BID 06/04/16 Omeprazole 20 mg PO BID 06/04/16 Ramipril 2.5 mg PO DAILY 06/04/16 Albuterol 0.083% Nebulizer Sheeba 1 neb IH PRN 04/05/18 Ecotrin 81 mg PO DAILY 04/05/18 Proair Hfa 108 mcg IH PRN 04/05/18 Furosemide [Lasix] 40 mg PO DAILY 06/07/18 Albuterol Sulfate [Proair Hfa] 8.5 gm IH ASDIR 09/01/18 Mag Hydrox/Aluminum Hyd/Simeth [Maalox Advanced Suspension] 30 ml PO Q8H PRN # 200 ml 09/01/18 Anemia: No Asthma: No Cancer: No Cardiac Disorders: Yes CVA: Yes (hemorrhagic stroke) COPD: No CHF: No Dementia: No Diabetes: No GI Disorders: No Disorders: No HTN: Yes Hypercholesterolemia: Yes Liver Disease: No Seizures: No Thyroid Disease: No - Surgical History Abdominal Surgery: No Appendectomy: No Cardiac Surgery: Yes (tricuspid repair, mitral valve replaced , defibulator - pacemaker) Cholecystectomy: Yes Lung Surgery: No Neurologic Surgery: No Orthopedic Surgery: Yes (fracture left hip) - Suicide/Smoking/Psychosocial Hx Smoking History: Never smoked Have you smoked in the past 12 months: No Number of Cigarettes Smoked Daily: 0 If you are a former smoker, when did you quit?: 36 YRS AGO Hx Alcohol Use: No Drug/Substance Use Hx: No Substance Use Type: None Hx Substance Use Treatment: No Review of Systems - Review of Systems Able to Perform ROS?: Yes Is the patient limited [place]oth[place] proficient: No Constitutional: Yes: Weakness. No: Chills, Fever HEENTM: No: Symptoms Reported Respiratory: No: Symptoms reported, See HPI, Cough, Orthopnea, Shortness of Breath, SOB with Exertion, SOB at Rest, Stridor, Wheezing, Productive cough, Hemoptysis, Other Cardiac (ROS): No: Symptoms Reported, See HPI, Chest Pain, Edema, Irregular Heart Rate, Lightheadedness, Palpitations, Syncope, Chest Tightness, Other ABD/GI: Yes: Symptoms Reported, See HPI, Diarrhea, Abdominal cramping ( intermittent abdominal cramping pain). No: Nausea, Vomiting : No: Burning, Dysuria, Discharge, Frequency All Other Systems: Reviewed and Negative *Physical Exam - Vital Signs Last Vital Signs Temp Pulse Resp BP Pulse Ox 99.1 F 96 H 20 131/69 97 09/01/18 10:30 09/01/18 10:30 09/01/18 10:30 09/01/18 10:30 09/01/18 10:30 - Physical Exam General Appearance: Yes: Nourished, Appropriately Dressed. No: Apparent Distress HEENT: positive: Normal ENT Inspection Neck: positive: Supple Respiratory/Chest: positive: Lungs Clear, Normal Breath Sounds. negative: Respiratory Distress, Accessory Muscle Use Cardiovascular: positive: Regular Rhythm, Regular Rate Gastrointestinal/Abdominal: positive: Normal Bowel Sounds, Flat, Soft, Increased Bowel Sounds. negative: Tender, Organomegaly, Distended, Guarding, Rebound Musculoskeletal: positive: Normal Inspection. negative: CVA Tenderness Extremity: positive: Normal Capillary Refill, Normal Inspection Integumentary: positive: Normal Color, Dry Neurologic: positive: Fully Oriented, Alert, Normal Mood/Affect, Normal Response ED Treatment Course - LABORATORY CBC & Chemistry Diagram: 09/01/18 12:33 09/01/18 12:33 - RADIOLOGY Radiology Studies Ordered: Category Date Time Status CHEST - PA [RAD] Stat Radiology 09/01/18 11:14 Ordered Medical Decision Making - Medical Decision Making 09/01/18 11:18 Patient with a history of multiple comorbidities present with complaint of three -day history of diarrhea, on able to keep any food down and noncompliant with medication for 3 days due to of diarrhea. Patient symptoms likely viral gastroenteritis. CBC, CMP and lipase lab ordered. BNP and checks x-ray ordered to evaluate for worsening CHF due to noncompliance with medication. Pepcid 20 mg IV given for, discomfort. Maalox 30 mL by mouth ordered for diarrhea. Treat based on lab and imaging results 09/01/18 14:44 CBC, chemistry lab unremarkable. BNP of 4300 which is slight increase from 3months ago. CXR shows no acute pathology of effusion. Patient feels better with maalox. IV hydration of 250ml bolus ordered. Patient requesting food and stable for discharge after IV hydration with PCP follow-up 09/01/18 15:49 Patient feels well after IV hydration and able to eat sandwich without vomiting. Patient stable for discharge *DC/Admit/Observation/Transfer Diagnosis at time of Disposition: Gastroenteritis Diarrhea Qualifiers: Diarrhea type: unspecified type Qualified Code(s): R19.7 - Diarrhea, unspecified - Discharge Dispostion Disposition: HOME Condition at time of disposition: Stable Decision to Admit order: No - Prescriptions Prescriptions: Mag Hydrox/Aluminum Hyd/Simeth [Maalox Advanced Suspension] 30 ml PO Q8H PRN # 200 ml PRN Reason: abdominal discomfort - Referrals Referrals: Darryl Dennis [Primary Care Provider] - - Patient Instructions Printed Discharge Instructions: DI for Viral Gastroenteritis -- Adult Additional Instructions: Your lab was normal. Your chest x-rays shows no fluid in lungs. Take prescribed medication as needed for diarrhea and abdominal discomfort. Increase fluid intake. Follow-up with PCP - Post Discharge Activity
[2018-09-01] MEDS ORDERED: MAG HYDROX/AL HYDROX/SIMETH 30 ML UNIT-DOSE CUP ONE (12:15)
[2018-09-01 12:48] LABS: BASO % 0.6 % (0-2.0); EOS % 0.7 % (0-4.5); HEMATOCRIT 30.3 % (32.4-45.2); HEMOGLOBIN 9.6 GM/dL (10.7-15.3); LYMPH % 10.1 % (8-40); MCH 26.5 pg (25.7-33.7); MCHC 31.7 g/dl (32.0-36.0); MEAN CELL VOLUME 83.7 fl (80-96); MEAN PLT VOLUME 9.3 fl (7.5-11.1); MONO % 9.2 % (3.8-10.2); NEUT % 79.4 % (42.8-82.8); PLATELET COUNT 200 K/MM3 (134-434); RBC 3.62 M/mm3 (3.60-5.2); RDW 17.3 % (11.6-15.6); WHITE BLOOD COUNT 7.1 K/mm3 (4.0-10.0)
[2018-09-01 13:17] LABS: ALBUMIN 3.6 g/dl (3.4-5.0); BILIRUBIN,TOTAL 0.6 mg/dL (0.2-1); BLOOD UREA NITROGEN 12.2 mg/dL (7-18); CALCIUM 8.5 mg/dL (8.5-10.1); CREATININE 0.7 mg/dL (0.55-1.3); POTASSIUM 3.5 mmol/L (3.5-5.1); TOT PROT 6.3 g/dl (6.4-8.2)
[2018-09-01 13:31] LABS: EPI CELLS 2.4 /HPF (0-5/HPF); HYALINE CASTS 8 /lpf (0-8); URINE APPEARANCE CLEAR; URINE BACTERIA 78.4 /hpf (NEGATIVE); URINE BILIRUBIN NEGATIVE (NEGATIVE); URINE COLOR YELLOW; URINE GLUCOSE (UA) NEGATIVE (NEGATIVE); URINE KETONE NEGATIVE (NEGATIVE); URINE LEUK ESTERASE TRACE (NEGATIVE); URINE NITRITE NEGATIVE (NEGATIVE); URINE PROTEIN NEGATIVE (NEGATIVE); URINE WBC 12 /hpf (0-5)
[2018-09-01] MEDS ORDERED: SODIUM CHLORIDE 250 ML IV STA (14:32)
[2018-09-01 15:11] LABS: URINE CRYSTALS CA OXALATES /hpf; URINE RBC 5.8 /hpf (0-4)
== END 2018-09-01 15:36 | disposition home or self-care (01) ==
LOC: JER 10:25
PROC: 3E033GC Introduction of Other Therapeutic Substance into Peripheral Vein, Percutaneous Approach (ICD-10-PCS; principal; 2018-09-01)
PROC: 3E0337Z Introduction of Electrolytic and Water Balance Substance into Peripheral Vein, Percutaneous Approach (ICD-10-PCS; 2018-09-01)
DX: K52.9 Noninfective gastroenteritis and colitis, unspecified (principal); E78.00 Pure hypercholesterolemia, unspecified; I10 Essential (primary) hypertension; Z87.891 Personal history of nicotine dependence; Z86.73 Personal history of transient ischemic attack (TIA), and cerebral infarction without residual deficits; I51.9 Heart disease, unspecified
CPT/HCPCS: 36415; 71045-TC-FY; 80053; 81003; 83690; 83880; 85025; 87077; 87086; 99281-25

== ENCOUNTER 2018-09-05 10:29 | Emergency (ER) | payer BC, OTHER ==
[2018-09-05 10:52] VITALS: BMI 38.8
[2018-09-05] MEDS ORDERED: ONDANSETRON 4 MG/2 ML VIAL IVPB ONE (11:22)
[2018-09-05] MEDS ORDERED: SODIUM CHLORIDE 1,000 ML IV ONE (11:22)
[2018-09-05] MEDS ORDERED: MAG HYDROX/AL HYDROX/SIMETH -MYLANTA- ORAL SUSPENSION PO ONE (11:22)
[2018-09-05] MEDS ORDERED: FAMOTIDINE 20 MG/50 ML IVPB 20 MG in PREMIX 50 IVPB ONE (11:22)
[2018-09-05] MEDS ORDERED: MAG HYDROX/AL HYDROX/SIMETH 30 ML UNIT-DOSE CUP ONE (11:29)
[2018-09-05] MEDS ORDERED: ONDANSETRON 4 MG/2 ML VIAL ONE (11:29)
[2018-09-05] MEDS ORDERED: FAMOTIDINE 20 MG/50 ML IVPB 20 MG/50 ML MG IVPB ONE (11:29)
--- NOTE | 2018-09-05 11:54 | EKG ---
Test Reason : Blood Pressure : / mmHG Vent. Rate : 091 BPM Atrial Rate : 091 BPM P-R Int : 152 ms QRS Dur : 142 ms QT Int : 412 ms P-R-T Axes : 000 -61 082 degrees QTc Int : 506 ms POOR DATA QUALITY, INTERPRETATION MAY BE ADVERSELY AFFECTED Atrial-sensed ventricular-paced rhythm ABNORMAL ECG WHEN COMPARED WITH ECG OF 28-JUN-2018 15:16, NO SIGNIFICANT CHANGE WAS FOUND Confirmed by JOSUE ALLEN, CECILIA ([id number]) on 09/05/2018 11:54:32 AM Referred By: Confirmed By:CECILIA SALAS MD
[2018-09-05 11:56] LABS: BASO % 2.7 % (0-2.0); EOS % 0.1 % (0-4.5); HEMATOCRIT 30.8 % (32.4-45.2); HEMOGLOBIN 9.8 GM/dL (10.7-15.3); LYMPH % 3.1 % (8-40); MCH 26.9 pg (25.7-33.7); MEAN PLT VOLUME 8.9 fl (7.5-11.1); MONO % 3.8 % (3.8-10.2); NEUT % 90.3 % (42.8-82.8); RBC 3.66 M/mm3 (3.60-5.2); RDW 17.8 % (11.6-15.6); WHITE BLOOD COUNT 8.4 K/mm3 (4.0-10.0)
[2018-09-05 12:12] LABS: PLATELET COUNT 182 K/MM3 (134-434)
[2018-09-05 12:21] LABS: ALBUMIN 3.6 g/dl (3.4-5.0); BILIRUBIN,TOTAL 0.5 mg/dL (0.2-1); BLOOD UREA NITROGEN 12.6 mg/dL (7-18); CALCIUM 8.3 mg/dL (8.5-10.1); CREATININE 0.8 mg/dL (0.55-1.3); MAGNESIUM 2.5 mg/dL (1.8-2.4); POTASSIUM 4.4 mmol/L (3.5-5.1); TOT PROT 6.3 g/dl (6.4-8.2)
[2018-09-05 13:58] VITALS: BP 117/69; PULSE 96
[2018-09-05] MEDS ORDERED: ACETAMINOPHEN 325 MG TABLET (FP) PO ONE (14:02)
[2018-09-05] MEDS ORDERED: ACETAMINOPHEN 325 MG TABLET (FP) ONE (14:10)
--- NOTE | 2018-09-05 14:10 | PDOC ---
Documentation entered by Erica Moore SCRIBE, acting as scribe for Adryan Huitron MD. Adryan Huitron MD: This documentation has been prepared by the scribeOscar Natalie, SCRIBE, under my direction and personally reviewed by me in its entirety. I confirm that the documentation accurately reflects all work, treatment, procedures, and medical decision making performed by me. History of Present Illness - General Chief Complaint: Pain Stated Complaint: ABDOMINAL PAIN Time Seen by Provider: 09/05/18 10:54 History Source: Patient Exam Limitations: No Limitations - History of Present Illness Travel History: No Initial Comments: 09/05/18 11:24 The patient is a 62-year-old female with a past medical history of sarcoidosis, CHF, GERD, HTN, COPD, CVA (hemorrhagic stroke), who presents to the ED with 4-5 days of persistent diarrhea. Seen here on Thursday (09/01/18) and diagnosed with gastroenteritis. She endorses epigastric pain that she describes as sharp in sensation and 5/5 in severity. Patient notes that the pain is more severe after she eats and it is usually followed by diarrhea. pt notes fever to 101 at home. The patient denies chills. Denies any chest pain, palpitations or shortness of breath. Denies any dysuria, frequency, urgency, hesitancy, or hematuria. Denies any back pain. Denies any weakness, dizziness, or changes in strength or sensation. Patient denies any recent antibiotic use, recent travel or known sick contacts Allergies: Amoxicillin trihydrate, potassium clavulanate. Social History: None reported Surgical History: Tricuspid repair, mitral valve replacement, defibrillator - pacemaker placement, cholecystectomy, LT hip sx. Past History - Past Medical History Allergies/Adverse Reactions: Allergies Allergy/AdvReac Type Severity Reaction Status Date / Time amoxicillin trihydrate AdvReac Severe Verified 09/05/18 10:56 [From Augmentin] potassium clavulanate AdvReac Severe Verified 09/05/18 10:56 [From Augmentin] Home Medications: Ambulatory Orders Tolterodine Tartrate 2 mg PO DAILY 02/15/15 Cholecalciferol (Vitamin D3) [Vitamin D3] 5,000 unit PO DAILY 03/08/15 Atorvastatin Ca [Lipitor] 20 mg PO HS 06/04/16 Carvedilol 6.25 mg PO BID 06/04/16 Omeprazole 20 mg PO BID 06/04/16 Ramipril 2.5 mg PO DAILY 06/04/16 Furosemide [Lasix] 20 mg PO DAILY 06/07/18 Albuterol 0.083% Nebulizer Sheeba [Ventolin 0.083% Nebulizer Soln -] 1 amp NEB PRN PRN 09/05/18 Albuterol Sulfate [Proair Hfa] 1 - 2 inh IH PRN 09/05/18 Aspirin [Ecotrin] 81 mg PO DAILY 09/05/18 Anemia: No Asthma: No Cancer: No Cardiac Disorders: Yes CVA: Yes (hemorrhagic stroke) COPD: No CHF: No Dementia: No Diabetes: No GI Disorders: No Disorders: No HTN: Yes Hypercholesterolemia: Yes Liver Disease: No Seizures: No Thyroid Disease: No - Surgical History Abdominal Surgery: No Appendectomy: No Cardiac Surgery: Yes (tricuspid repair, mitral valve replaced , defibulator - pacemaker) Cholecystectomy: Yes Lung Surgery: No Neurologic Surgery: No Orthopedic Surgery: Yes (fracture left hip) - Suicide/Smoking/Psychosocial Hx Smoking History: Former smoker Have you smoked in the past 12 months: No Number of Cigarettes Smoked Daily: 0 If you are a former smoker, when did you quit?: 36 YRS AGO Information on smoking cessation initiated: No Hx Alcohol Use: No Drug/Substance Use Hx: No Substance Use Type: None Hx Substance Use Treatment: No Review of Systems - Review of Systems Able to Perform ROS?: Yes Comments:: 09/05/18 11:26 CONSTITUTIONAL: (+)Fever. No reported: Chills, Diaphoresis, Generalized Weakness, Malaise, Loss of Appetite HEENT: No reported: Rhinorrhea, Nasal Congestion, Throat Pain, Throat Swelling, Difficulty Swallowing, Mouth Swelling, Ear Pain, Eye Pain, Visual Changes CARDIOVASCULAR: No reported: Chest Pain, Syncope, Palpitations, Irregular Heart Rate, Lightheadedness, Peripheral Edema RESPIRATORY: No reported: Cough, Shortness of Breath, SOB with Exertion, Orthopnea, Wheezing , Stridor, Hemoptysis GASTROINTESTINAL: (+)Abdominal pain, diarrhea. No reported: Abdominal Distension, Nausea, Vomiting , Constipation, Melena, Hematochezia GENITOURINARY: No reported: Dysuria, Frequency, Urgency, Hesitancy, Flank Pain, Genital Pain MUSCULOSKELETAL: No reported: Myalgia, Arthralgia, Joint Swelling, Back pain, Neck Pain SKIN: No reported: Rash, Itching, Pallor HEMEATOLOGIC/IMMUNOLOGIC: No reported: Easy Bleeding, Easy Bruising, Lymphadenopathy, Frequent infections ENDOCRINE: No reported: Unexplained Weight Gain, Unexplained Weight Loss, Heat Intolerance , Cold Intolerance NEUROLOGIC: No reported: Headache, Focal Weakness, Paresthesias, Vertigo, Lightheadedness, Unsteady Gait, Seizure, Mental Status Changes, Incontinence PSYCHIATRIC: No reported: Anxiety, Depression *Physical Exam - Vital Signs Last Vital Signs Temp Pulse Resp BP Pulse Ox 98.2 F 81 18 99/65 94 L 09/05/18 10:30 09/05/18 10:30 09/05/18 10:30 09/05/18 10:30 09/05/18 10:30 - Physical Exam Comments: 09/05/18 11:27 GENERAL: The patient is awake, alert, and fully oriented, Nontoxic - in no acute distress, morbidly obese HEAD: Normocephalic, atraumatic. EYES: extraocular movements intact, sclera anicteric, conjunctiva clear. ENT: Normal voice, Moist mucous membranes. NECK: Normal range of motion, supple LUNGS: Breath sounds equal, clear to auscultation bilaterally. No wheezes, no rhonchi, no rales. HEART: Regular rate and rhythm, without murmur, rub or gallop. ABDOMEN: Soft, nontender, hyperactive bowel sounds, No guarding, no rebound.No CVA tenderness EXTREMITIES: Normal range of motion, no edema. No cyanosis. No erythema, or tenderness. NEUROLOGICAL: No facial assymetry, Normal speech, PSYCH: Normal mood, normal affect. SKIN: Warm, Dry, normal turgor Heart Score/ECG Review - ECG Impressions Comment:: 09/05/18 14:25 Twelve-lead EKG was performed and reviewed by me. atrial sensed ventricular paced rythm rate of [address] changs suggestive of acute ischemia ED Treatment Course - LABORATORY CBC & Chemistry Diagram: 09/05/18 11:21 09/05/18 11:21 Medical Decision Making - Medical Decision Making 09/05/18 11:19 62y F hx of sarcoidosis, copd, htn, presents with complain tof 4-5 day history of diarrhea, had a recent visit to the ED with dx of enteritis. Pt endorses epigastric abd pain that is sharp approx 5/10. worse with eating/drinking associated with non bloody diarrhea suspect enteritis no abd ttp to suggesti acute abd pathology will ck lbs hydration will reassess 09/05/18 14:03 pts labs reviewed, unremarkble pt reasessed, abd soft nontender pt tolerated oral intake of juice. when she had the crackers she endorsed some crapming pain. suspect this is natural course of her enteritis no abd ttp to sgugest acute intraddominal bacterial infection will dc pt with supportive care and pmd fu she has an appt with her PMD on thu09/05/18 14:45 pts cxr is clear pts o2 sat around 94% - he patient's lungs are clear to aspiration the patient has no pulmonary or cardiac complaints including dyspnea exertion, shortness of breath, cough. suspect this may be secondary to her sarcoidosis I will have the patient follow up with Dr. Blackwell. return precautions wer discussed I discussed the physical exam findings, ancillary test results and final diagnoses with the patient. I answered all of the patient's questions. The patient was satisfied with the care received and felt comfortable with the discharge plan and treatment plan. The patient will call their primary care physician within 24 hours to arrange follow-up and will return to the Emergency Department with any new, persistent or worsening symptoms. *DC/Admit/Observation/Transfer Diagnosis at time of Disposition: Enteritis Diarrhea Qualifiers: Diarrhea type: unspecified type Qualified Code(s): R19.7 - Diarrhea, unspecified - Discharge Dispostion Disposition: HOME Condition at time of disposition: Improved Decision to Admit order: No - Referrals Referrals: Darryl Dennis [Primary Care Provider] - - Patient Instructions Printed Discharge Instructions: DI for Viral Gastroenteritis -- Adult Additional Instructions: Return to the emergency department immediately with ANY new, persistent or worsening symptoms including worsening abdominal pain, fevers, inability to tolerate oral intake, chest pain, shortness of breath or any other concerns. Stay well hydrated. You MUST call and follow up with your doctor in 2-3 days. Your emergency department visit is not complete without a followup with your doctor for reevaluation. Please make sure your doctor reviews the results of your emergency evaluation. Print Language: SAO TOMEAN - Post Discharge Activity
[2018-09-05 14:45] VITALS: TEMP 99
== END 2018-09-05 15:00 | disposition home or self-care (01) ==
LOC: JER 10:29
PROC: 3E0337Z Introduction of Electrolytic and Water Balance Substance into Peripheral Vein, Percutaneous Approach (ICD-10-PCS; principal; 2018-09-05)
PROC: 3E033GC Introduction of Other Therapeutic Substance into Peripheral Vein, Percutaneous Approach (ICD-10-PCS; 2018-09-05)
DX: K52.9 Noninfective gastroenteritis and colitis, unspecified (principal); I11.0 Hypertensive heart disease with heart failure; I50.9 Heart failure, unspecified; J44.9 Chronic obstructive pulmonary disease, unspecified; K21.9 Gastro-esophageal reflux disease without esophagitis; Z86.73 Personal history of transient ischemic attack (TIA), and cerebral infarction without residual deficits
CPT/HCPCS: 36415; 71046-TC-FY; 80053; 83735; 85025; 93005; 93010; 99283-25; J7030

== ENCOUNTER 2018-09-09 06:55 | Inpatient (IN) | payer BC, OTHER | END 2018-09-16 17:33 | disposition home or self-care (01) | LOC: JER 06:55 → JERBED 18:36 → J2W 09-10 18:37 ==

== ENCOUNTER 2018-09-21 13:52 | Observation (INO) | payer BC ==
[2018-09-21] MEDS ORDERED: LACTATED RINGERS SOLUTION 1000 ML INFUS.BAG IV ONE (15:30)
[2018-09-21] MEDS ORDERED: morphine CARPU-JECT 4 MG/1 ML DISP.SYRIN IVPUSH ONE (15:30)
[2018-09-21] MEDS ORDERED: morphine SULFATE 4 MG/ML VIAL ONE (15:36)
[2018-09-21 15:57] LABS: HEMOGLOBIN 9.5 GM/dL (10.7-15.3)
--- NOTE | 2018-09-21 16:02 | PDOC ---
History of Present Illness - General Chief Complaint: Pain Stated Complaint: ABD PAIN Time Seen by Provider: 09/21/18 14:23 History Source: Patient, Family (Aunt present at bedside.), Old Records Exam Limitations: No Limitations - History of Present Illness Initial Comments: HPI: 62 y/o female presenting to [facility] ER complaining of diffuse abdominal pain and persistent watery, nonbloody diarrhea acute on chronically for the past three weeks. Estimates approx. 3-5 episodes per day. Pain described as achy and is made worse with PO intake. Unable to find relief. Was recently admitted to this facility on 09 September [address] scan revealed hepatic lesions suspected to be metastatic with known primary source. Pt is s/p hepatic biopsy but results are pending. Pt was also found to have bilateral pulmonary embolisms and was started on Eliquis. Pt states she has never undergone a colonoscopy. Has an appointment to f/u with oncology at the end of September. Medical Hx: - Sarcoidosis - CHF s/p pacemaker/defibrillator - GERD - HTN - COPD - CVA (hemorrhagic stroke) Surgical Hx: - Tricuspid repair - Mitral valve replacement - Cholecystectomy - LT hip sx. Review of Systems: In addition to that documented in the HPI above, the additional ROS was obtained : Constitutional: Endorses chills. Denies fevers Head: Denies vision changes ENMT: Denies sore throat CV: Denies chest pain Resp: Endorses SOB which is unchanged since before prior admission GI: Per HPI : Denies painful urination or hematuria MSK: Denies recent trauma Skin: Denies new rashes Neuro: Denies new numbness or tingling or weakness Endocrine: Denies polyuria Heme: Denies bleeding or bruising Physical Examination: Constitutional: Nontoxic adult female in no acute distress but obvious discomfort. Morbidly obese body habitus. Found semi-fowlers on hospital bed. Alert and oriented x4. Speech was non-labored, non-pressured. Frequently moaning in pain. Cardiovascular / Chest: Regular rate and regular rhythm. No murmur, rubs, clicks , or gallops. Peripheral pulses: radial pulses full. 1+ pretibial edema to knees bilaterally. Respiratory: Breathing unlabored. Equal chest rise and fall. Clear to auscultation bilaterally. No stridor, no wheezing, no rhonchi. Gastrointestinal: abdomen is diffusely tender with grimace and withdrawal. Globally, abdomen is soft and nondistended. Old appearing injection sites with ecchymosis noted across lower abdomen. Neuro: Alert and oriented. Moving all four extremities spontaneously. Skin: Warm, dry, and intact. Psych: Affect: emotive. Mood: unable to assess. MDM: *Reviewed vital signs, nursing notes, and prior visit documentation (if available). 62 y/o female presenting with acute on chronic abdominal pain and watery diarrhea. Decreased PO intake. In setting of recent diagnosis of suspected metastatic liver lesions without known primary source and pulmonary embolism. Afebrile. Vitals unremarkable for hypotension or tachycardia. Normoxic on room air. Physical exam as described above. Low suspicion for acute surgical abdomen. Will obtain CTA of abdomen and pelvis to eval for possible mesenteric ischemia, though low suspicion given recent start on Eliquis. Ordered morphine and IVF. CBC revealed mild anemia, which is at baseline per [facility] records. No leukocytosis. CMP unremarkable for significant electrolyte derangement. Troponin not elevated. EKG unremarkable for ischemic findings. Lipase mildly elevated; possibly secondary to colitis, low suspicion for pancreatitis. CTA unremarkable for ischemic findings or interval changes from recent CT scans. Pt reassessed. Requested additional pain medication. Will admit pt for abdominal pain with poor outpatient f/u. Telephone discussion with resident Dr. Shoemaker. Verbally appraised of the pts HPI , ED course, and current plan of management. Will admit pt to med/surg for attending Dr. Matthews. Bartolome Sauer M.D., PGY2 Emergency Medicine Resident Past History - Past Medical History Allergies/Adverse Reactions: Allergies Allergy/AdvReac Type Severity Reaction Status Date / Time amoxicillin trihydrate AdvReac Severe Verified 09/09/18 07:02 [From Augmentin] potassium clavulanate AdvReac Severe Verified 09/09/18 07:02 [From Augmentin] Home Medications: Ambulatory Orders Tolterodine Tartrate 2 mg PO DAILY 02/15/15 Cholecalciferol (Vitamin D3) [Vitamin D3] 5,000 unit PO DAILY 03/08/15 Atorvastatin Ca [Lipitor] 20 mg PO HS 06/04/16 Carvedilol 6.25 mg PO BID 06/04/16 Omeprazole 20 mg PO BID 06/04/16 Ramipril 2.5 mg PO DAILY 06/04/16 Furosemide [Lasix] 20 mg PO DAILY 06/07/18 Albuterol 0.083% Nebulizer Sheeba [Ventolin 0.083% Nebulizer Soln -] 1 amp NEB PRN PRN 09/05/18 Albuterol Sulfate [Proair Hfa] 1 - 2 inh IH PRN 09/05/18 Apixaban [Eliquis] 10 mg PO BID #70 tablet 09/15/18 Prednisone 10 mg PO DAILY #30 tablet 09/16/18 Acetaminophen [Tylenol .Regular Strength -] 650 mg PO Q6H PRN tablet 09/23/18 Apixaban [Eliquis -] 5 mg PO BID tablet 09/23/18 Bethanechol Chloride [Bethanechol Chloride -] 5 mg PO TID tablet 09/23/18 Cephalexin [Keflex] 500 mg PO ONCE #1 capsule 09/23/18 Lactobacillus Acidophilus [Acidophilus Lactobacilli] 1 each PO DAILY #7 capsule 09/23/18 Anemia: No Asthma: No Cancer: No Cardiac Disorders: Yes CVA: Yes (hemorrhagic stroke) COPD: No CHF: No Dementia: No Diabetes: No GI Disorders: No Disorders: No HTN: Yes Hypercholesterolemia: Yes Liver Disease: No Seizures: No Thyroid Disease: No - Surgical History Abdominal Surgery: No Appendectomy: No Cardiac Surgery: Yes (tricuspid repair, mitral valve replaced , defibulator - pacemaker) Cholecystectomy: Yes Lung Surgery: No Neurologic Surgery: No Orthopedic Surgery: Yes (fracture left hip) - Suicide/Smoking/Psychosocial Hx Smoking History: Never smoked Have you smoked in the past 12 months: No Number of Cigarettes Smoked Daily: 0 If you are a former smoker, when did you quit?: 36 YRS AGO Information on smoking cessation initiated: No Hx Alcohol Use: No Drug/Substance Use Hx: No Substance Use Type: None Hx Substance Use Treatment: No *Physical Exam - Vital Signs Last Vital Signs Temp Pulse Resp BP Pulse Ox 98.7 F 83 18 123/90 94 L 09/21/18 13:52 09/21/18 13:52 09/21/18 13:52 09/21/18 13:52 09/21/18 13:52 ED Treatment Course - LABORATORY CBC & Chemistry Diagram: 09/23/18 07:08 09/23/18 07:08 - Medications Given in the ED: ED Medications Discontinued Medications Generic Name Dose Route Start Last Admin Trade Name Vazquez PRN Reason Stop Dose Admin Lactated Ringer's 1,000 ml 09/21/18 15:30 09/21/18 15:37 Lactated Ringers Solution IV 09/21/18 15:31 1,000 ml ONCE ONE Administration Morphine Sulfate 4 mg 09/21/18 15:30 09/21/18 15:37 Morphine Injection - IVPUSH 09/21/18 15:31 4 mg ONCE ONE Administration *DC/Admit/Observation/Transfer Diagnosis at time of Disposition: Abdominal pain, Diarrhea - Discharge Dispostion Disposition: HOME Condition at time of disposition: Stable Decision to Admit order: Yes - Referrals - Patient Instructions - Post Discharge Activity
[2018-09-21 16:19] LABS: ALBUMIN 3.5 g/dl (3.4-5.0); BILIRUBIN,TOTAL 0.7 mg/dL (0.2-1); BLOOD UREA NITROGEN 9.5 mg/dL (7-18); CALCIUM 8.5 mg/dL (8.5-10.1); CREATININE 0.9 mg/dL (0.55-1.3); POTASSIUM 3.8 mmol/L (3.5-5.1); TOT PROT 6.1 g/dl (6.4-8.2)
[2018-09-21 16:26] LABS: BASO % 0.8 % (0-2.0); EOS % 0.4 % (0-4.5); HEMATOCRIT 29.3 % (32.4-45.2); LYMPH % 13.4 % (8-40); MCH 27.2 pg (25.7-33.7); MCHC 32.3 g/dl (32.0-36.0); MEAN CELL VOLUME 84.3 fl (80-96); MEAN PLT VOLUME 9.4 fl (7.5-11.1); MONO % 10.5 % (3.8-10.2); NEUT % 74.9 % (42.8-82.8); PLATELET COUNT 132 K/MM3 (134-434); RBC 3.48 M/mm3 (3.60-5.2); RDW 18.3 % (11.6-15.6); WHITE BLOOD COUNT 6.9 K/mm3 (4.0-10.0)
[2018-09-21 17:00] LABS: EPI CELLS 2.6 /HPF (0-5/HPF); HYALINE CASTS 24 /lpf (0-8); URINE APPEARANCE CLOUDY; URINE BACTERIA 2196.3 /hpf (NEGATIVE); URINE BILIRUBIN NEGATIVE (NEGATIVE); URINE COLOR YELLOW; URINE GLUCOSE (UA) NEGATIVE (NEGATIVE); URINE KETONE TRACE (NEGATIVE); URINE LEUK ESTERASE 1+ (NEGATIVE); URINE NITRITE NEGATIVE (NEGATIVE); URINE PROTEIN TRACE (NEGATIVE); URINE UROBILINOGEN 0.2 mg/dL (0.2-1.0); URINE WBC 2 /hpf (0-5)
--- NOTE | 2018-09-21 17:01 | PDOC ---
Documentation entered by Swetha Roa SCRIBE, acting as scribe for Remy Owusu MD. Remy Owusu MD: This documentation has been prepared by the Janina garcia Renju, SCRIBE, under my direction and personally reviewed by me in its entirety. I confirm that the documentation accurately reflects all work, treatment, procedures, and medical decision making performed by me. Attending Attestation - Resident Resident Name: Bartolome Sauer - ED Attending Attestation I have performed the following: I have examined & evaluated the patient, The case was reviewed & discussed with the resident, I agree w/resident's findings & plan, Exceptions are as noted - HPI HPI: 09/21/18 16:45 The patient is a 62 year old female with a past medical history of liver metastasis, sarcoidosis, CHF, HTN, COPD, GERD, and CVA (hemorrhagic stroke), who presents to the emergency department for evaluation of 5 days of abdominal pain and persistent diarrhea. Patient has had 3 ED visits for similar symptoms and was recently discharged on 09/16/18. She reports sharp epigastric pain since Thursday and notes 5 episodes of non odorous and nonbloody diarrhea per day. Patient endorses decrease in PO intake. Patient states she has an appointment with her oncologist Dr. Javier on 10/19/18. Denies chest pain, shortness of breath, palpitations, weakness, dizziness, changes in strength or sensation, and recent travel. Denies frequency, urgency, dysuria, and hematuria. Allergies: Amoxicillin trihydrate, potassium clavulanate. Social History: None reported Surgical History: Tricuspid repair, mitral valve replacement, defibrillator - pacemaker placement, cholecystectomy, left hip. - Physicial Exam PE: 09/21/18 16:45 ROS: A complete review of 10 out of 10 review of systems is taken and is negative apart from what is previously mentioned below and in the HPI. Vitals: Triage Vital signs reviewed General Appearance: no acute distress, well nourished well developed, Head: Atraumatic, Eyes: Pupils equal reactive round, extraocular movement intact Neck: Supple; Chest Wall: Nontender Cardiac: Regular rate and rhythm, no murmurs, no rubs, no gallops, Lungs: Clear to auscultation bilaterally, good air movement bilaterally, Abdomen: (+)Diffuse lower abdominal tenderness to palpation. non distended, normal bowel sounds. Extremities: Full range of motion to all extremities, no cyanosis, clubbing, or edema Skin: Warm and dry, no rashes or lesions, no rash, no petechiae Neuro: Strength intact to all extremities, Sensation intact to all extremities, gait normal Psych: normal mood, normal affect - Medical Decision Making 09/21/18 16:46 The patient is a 62 year old female with a past medical history of liver metastasis, sarcoidosis, CHF, HTN, COPD, GERD, and CVA (hemorrhagic stroke), who presents to the emergency department for evaluation of 5 days of abdominal pain and persistent diarrhea. Plan: CT Scan Labs Pain medication 09/21/18 18:51 62 years old with past medical history significant for a static disease to liver , sarcoidosis, CHF hypertension COPD GERD hemorrhagic stroke, recently diagnosed PE on ellequist in the past recently admitted to the hospital for abdominal pain and diarrhea 3 presents to the emergency department with abdominal pain diarrhea. Pain is moderate to severe pain diffuse abdominal discomfort Given patient's multiple comorbidities a CTA was ordered to better delineate the etiology of her pain CTA with no acute findings compared to patient's previous CAT scan However given intractable abdominal pain and persistent diarrhea with no available close outpatient follow-up we'll observe for further management and more definitive care.
[2018-09-21 17:59] LABS: URINE RBC 5.9 /hpf (0-4)
[2018-09-21] MEDS ORDERED: MORPHINE SULFATE 2 MG/ML VIAL IVPUSH PRN (19:31)
--- NOTE | 2018-09-21 19:36 | HP ---
CHIEF COMPLAINT: Abdominal pain and diarrhea PCP: Dr. Dennis Oncologist: Dr. Javier HISTORY OF PRESENT ILLNESS: Patient is a 62 year old female with PMHx of NYHA III systolic CHF, sarcoidosis , HTN, HLD who presents with sharp epigastric pain for 5 days. She also endorses 5 episodes of non-bloody, non-odorous diarrhea and decreased appetite. Pt has not eaten since this morning. She also complains of increased SOB and dizziness, especially when she exerts herself, but denies any chest pain. She also denies any nausea, vomiting, fever, chills, or urinary symptoms. Pt was recently admitted on 09/10/[address] scan revealed hepatic masses, biopsy results neg for malignancy, granulomas, fibrosis, or siderosis. She was also found to have BL pulmonary embolisms and was started on Eliquis. Pt has an appointment to f/u with oncology (Dr. Javier) at the end of September. ER course was notable for: (1) UA: 3+ blood, 1+ LE (2) Abd/Pelvis CTA: chronic bladder retention, no acute pathology Recent Travel: None PAST MEDICAL HISTORY: NYHA III CHF, sarcoidosis, HTN, HLD, COPD, GERD, CVA ( hemorrhagic), liver masses PAST SURGICAL HISTORY: defibrillator - placement, mitral valve replacement, tricuspid valve repair, cholecystectomy, left hip surgery Social History: Smoking: Denies Alcohol: Denies Drugs: Denies Family History: Mother: Leukemia and Diabetes Allergies amoxicillin trihydrate [From Augmentin] Adverse Reaction (Severe, Verified 09/09 07:02) pt states - bells palsy after recieving medication potassium clavulanate [From Augmentin] Adverse Reaction (Severe, Verified 07:02) pt states - bells palsy after recieving medication HOME MEDICATIONS: Home Medications Medication Instructions Recorded Tolterodine Tartrate 2 mg PO DAILY 02/15/15 Cholecalciferol (Vitamin D3) 5,000 unit PO DAILY 03/08/15 [Vitamin D3] Atorvastatin Ca [Lipitor] 20 mg PO HS 06/04/16 Carvedilol 6.25 mg PO BID 06/04/16 Omeprazole 20 mg PO BID 06/04/16 Ramipril 2.5 mg PO DAILY 06/04/16 Furosemide [Lasix] 20 mg PO DAILY 06/07/18 Albuterol 0.083% Nebulizer Sheeba 1 amp NEB PRN PRN 09/05/18 [Ventolin 0.083% Nebulizer Soln -] Albuterol Sulfate [Proair Hfa] 1 - 2 inh IH PRN 09/05/18 Aspirin [Ecotrin] 81 mg PO DAILY 09/05/18 Apixaban [Eliquis] 10 mg PO BID #70 tablet 09/15/18 Prednisone 10 mg PO DAILY #30 tablet 09/16/18 REVIEW OF SYSTEMS CONSTITUTIONAL: Absent: fever, chills, diaphoresis, generalized weakness, malaise, loss of appetite, weight change HEENT: Absent: rhinorrhea, nasal congestion, throat pain, throat swelling, difficulty swallowing, mouth swelling, ear pain, eye pain, visual changes CARDIOVASCULAR: Absent: chest pain, syncope, palpitations, irregular heart rate, lightheadedness , peripheral edema RESPIRATORY: shortness of breath, dyspnea with exertion Absent: cough, orthopnea, wheezing, stridor, hemoptysis GASTROINTESTINAL: abdominal pain, diarrhea Absent: abdominal distension, nausea, vomiting, constipation, melena, hematochezia GENITOURINARY: Absent: dysuria, frequency, urgency, hesitancy, hematuria, flank pain, genital pain MUSCULOSKELETAL: Absent: myalgia, arthralgia, joint swelling, back pain, neck pain SKIN: Absent: rash, itching, pallor HEMATOLOGIC/IMMUNOLOGIC: Absent: easy bleeding, easy bruising, lymphadenopathy, frequent infections ENDOCRINE: Absent: unexplained weight gain, unexplained weight loss, heat intolerance, cold intolerance NEUROLOGIC: Absent: headache, focal weakness or paresthesias, dizziness, unsteady gait, seizure, mental status changes, bladder or bowel incontinence PSYCHIATRIC: Absent: anxiety, depression, suicidal or homicidal ideation, hallucinations. PHYSICAL EXAMINATION Vital Signs - 24 hr 09/21/18 09/21/18 09/21/18 13:52 15:30 18:27 Temperature 98.7 F 98.6 F Pulse Rate 83 Pulse Rate [ 68 81 Left Apical] Respiratory 18 16 18 Rate Blood Pressure 123/90 Blood Pressure 112/56 L 119/69 [Left Arm] O2 Sat by Pulse 94 L 96 Oximetry (%) GENERAL: Awake, alert, and fully oriented, in no acute distress. HEAD: Normal with no signs of trauma. EYES: Pupils equal, round and reactive to light, extraocular movements intact, sclera anicteric, conjunctiva clear. No lid lag. EARS, NOSE, THROAT: Ears normal, nares patent, oropharynx clear without exudates. Moist mucous membranes. NECK: Normal range of motion, supple without lymphadenopathy, JVD, or masses. LUNGS: Breath sounds equal, clear to auscultation bilaterally. No wheezes, and no crackles. No accessory muscle use. HEART: Regular rate and rhythm, normal S1 and S2 without murmur, rub or gallop. ABDOMEN: Distended, soft, nontender, hyperactive bowel sounds, no guarding, no rebound, no masses. No hepatomegaly or splenomegaly. MUSCULOSKELETAL: Normal range of motion at all joints. No bony deformities or tenderness. No CVA tenderness. UPPER EXTREMITIES: 2+ pulses, warm, well-perfused. No cyanosis. No clubbing. No peripheral edema. LOWER EXTREMITIES: 2+ pulses, warm, well-perfused. No calf tenderness. 2+ pitting edema. NEUROLOGICAL: Cranial nerves II-XII intact. Normal speech. Normal gait. PSYCHIATRIC: Cooperative. Good eye contact. Appropriate mood and affect. SKIN: Warm, dry, normal turgor. Diffuse rash across abdomen with superimposed excoriations. Several white crusted excoriations on left palm. Laboratory Results - last 24 hr CBC, BMP 09/21/18 15:20 09/21/18 15:20 ASSESSMENT/PLAN: Patient is a 62 year old female with PMHx of NYHA III systolic CHF, sarcoidosis , HTN, HLD, GERD who presents with persistent epigastric pain and diarrhea. #Abdominal pain likely 2/2 acute cystitis UA: 1+ LE, 3+ blood, pt denies any symptoms but urinates frequently with lasix Will start on 2gm ceftriaxone and cont with 1gm ceftriaxone in am Pre/post bladder scan pending Cannot r/o gastritis, colitis C Diff, O&P, stool cx pending Consider GI consult #Neurogenic bladder/chronic retention Seen on prior pelvis CTA, likely cause of abd pain Start on bethanechol 5mg TID #Hepatic masses on recent CT Biopsies neg for malignancy and granulomas Possibly 2/2 parasitic infection, awaiting O&P results Consider GI and oncology consult #NYHA III CHF Echo (09/10/18) LVEF: <40% BNP: 9747 Cont home meds: ramipril 2.5mg daily, lasix 20mg daily, carvedilol 625mg BID #b/l PE last admission (09/10/18) Cont eliquis 10mg BID #Sarcoidosis Cont prednisone 10mg daily #FEN Hold fluids for now Sodium-controlled diet #DVT ppx Pt on eliquis 10mg BID #Dispo Monitor on med-surg Visit type - Emergency Visit Emergency Visit: Yes ED Registration Date: 09/21/18 Care time: The patient presented to the Emergency Department on the above date and was hospitalized for further evaluation of their emergent condition. - New Patient This patient is new to me today: Yes Date on this admission: 09/22/18 - Critical Care Critical Care patient: No ATTENDING PHYSICIAN STATEMENT I saw and evaluated the patient. I reviewed the resident's note and discussed the case with the resident. I agree with the resident's findings and plan as documented. SUBJECTIVE: OBJECTIVE: ASSESSMENT AND PLAN:
--- NOTE | 2018-09-21 20:12 | PN ---
Teaching Attending Note Name of Resident: Ivanna Irene ATTENDING PHYSICIAN STATEMENT I saw and evaluated the patient. I reviewed the resident's note and discussed the case with the resident. I agree with the resident's findings and plan as documented. Liver core bx shows minimal steatosis with no significant fibrosis; iron stain negative for siderosis and negative for alpha-1 antitrypsin globules Negative for malignancy granulomas, or cholestasis. CT without evidence of bowel ischemia, compared to 09/09 scan she has some hypodense foci suspicious for neoplastic disease or granulomas given history of sarcoid. Signs of neurogenic bladder. Echo 2019: LVH noted with moderately reduced LVEF, RV normal, AV normal, bioprosthetic MR, TR normal, PASP 29 ASSESSMENT AND PLAN: # Subacute diarrheal illness (check for parasitic disease, check stool gap, check lactoferrin and stool WBC) # Abdominal pain with distended bladder, cystitis likely # Hepatic lesions negative for malignancy on 09/15 bx (negative tumor markers, negative FOBT) # Urinary retention with mild chronic retention # Tricuspid repair # Chronic D-CHF # Hx Pulmonary Sarcoidosis # Acute b/l PE # hx HTN # S/P AICD 2/2 AV block # Prior hx AF, now in NSR (on AC for PEs now) # Hx hemorrhagic stroke (cerebellar) # S/P Bioprosthetic MV Abdominal pain likely 2/2 UTI (LE+ with new hematuria this year) with potential contribution from distention. she is on oxybutynin at home; not having any new incontenance sx. Can place on IV ceftriaxone and followup cx's. Check pre and post void volumes, consider self-cath vs. hernandez. Full Code
[2018-09-21] MEDS ORDERED: ALBUTEROL SO4 8 GM HFA INHALER IH SCH (21:30)
[2018-09-21] MEDS ORDERED: CEFTRIAXONE 2 GM-D5W BAG 2 GM/50 ML BAG IVPB SCH (22:00)
[2018-09-21] MEDS: PANTOPRAZOLE 20 MG TABLET (FP) PO SCH (22:24)
[2018-09-21] MEDS: APIXABAN 5 MG TABLET PO SCH (22:24)
[2018-09-21] MEDS: ATORVASTATIN CA 20 MG TABLET (FP) PO SCH (22:25)
[2018-09-21] MEDS: CARVEDILOL 6.25 MG TABLET (FP) PO SCH (22:25)
[2018-09-21] MEDS ORDERED: CEFTRIAXONE 2 GM in DEXTROSE 5%-WATER 100 ML IVPB ONE (22:45)
[2018-09-21 23:29] VITALS: BMI 38.0
[2018-09-21] MEDS ORDERED: DEXTROSE 5%-WATER 100 ML IVPB ONE (23:45)
[2018-09-21] MEDS: BETHANECHOL CHLORIDE 5 MG TABLET PO SCH (23:47)
[2018-09-22] MEDS ORDERED: PT OWN MED DRAWER 7, Y5N ONE ×2 (05:19→20:55)
[2018-09-22] MEDS: BETHANECHOL CHLORIDE 5 MG TABLET PO SCH ×3 (05:45→21:32)
[2018-09-22 07:41] LABS: BASO % 0.6 % (0-2.0); EOS % 1.5 % (0-4.5); HEMATOCRIT 30.7 % (32.4-45.2); HEMOGLOBIN 9.9 GM/dL (10.7-15.3); LYMPH % 5.4 % (8-40); MCH 27.3 pg (25.7-33.7); MCHC 32.2 g/dl (32.0-36.0); MEAN PLT VOLUME 8.8 fl (7.5-11.1); MONO % 9.7 % (3.8-10.2); NEUT % 82.8 % (42.8-82.8); PLATELET COUNT 122 K/MM3 (134-434); RBC 3.61 M/mm3 (3.60-5.2); RDW 18.2 % (11.6-15.6); WHITE BLOOD COUNT 6.7 K/mm3 (4.0-10.0)
[2018-09-22] MEDS: ACETAMINOPHEN 325 MG TABLET (FP) PO PRN (08:27)
[2018-09-22 08:41] LABS: ALBUMIN 3.4 g/dl (3.4-5.0); BILIRUBIN,TOTAL 0.6 mg/dL (0.2-1); BLOOD UREA NITROGEN 7.5 mg/dL (7-18); CALCIUM 8.7 mg/dL (8.5-10.1); CREATININE 0.6 mg/dL (0.55-1.3); POTASSIUM 3.8 mmol/L (3.5-5.1); TOT PROT 6.1 g/dl (6.4-8.2)
[2018-09-22] MEDS ORDERED: CEFTRIAXONE 1 GM in DEXTROSE 5%-WATER - 50 ML IVPB SCH (10:00)
[2018-09-22] MEDS ORDERED: cefTRIAXone SODIUM 1 GM VIAL ONE (10:20)
[2018-09-22] MEDS ORDERED: DEXTROSE 5%-WATER - 50 ML IVPB ONE (10:20)
[2018-09-22] MEDS: PANTOPRAZOLE 20 MG TABLET (FP) PO SCH ×2 (10:50→21:31)
[2018-09-22] MEDS: CHOLECALCIFEROL (VIT D3) 1,000 UNIT (25 MCG) TABLET PO SCH (10:50)
[2018-09-22] MEDS: predniSONE 10 MG TABLET (UD) PO SCH (10:50)
[2018-09-22] MEDS: ASPIRIN COATED 81 MG TABLET.EC PO SCH (10:51)
[2018-09-22] MEDS: FUROSEMIDE 20 MG TABLET (FP) PO SCH (10:51)
[2018-09-22] MEDS: CARVEDILOL 6.25 MG TABLET (FP) PO SCH ×2 (10:51→21:31)
[2018-09-22] MEDS: APIXABAN 5 MG TABLET PO SCH ×2 (10:53→21:31)
[2018-09-22] MEDS: RAMIPRIL 2.5 MG CAPSULE (FP) PO SCH (10:53)
--- NOTE | 2018-09-22 11:07 | PN ---
Physical Exam: SUBJECTIVE: Patient seen and examined a bedside, sitting in a chair. She c/o abdominal pain. Pain is located in the epigastrium, started 5 days ago, aching character, and associated w diarrhea. She reports the diarrhea has resolved today. Persistent associated symptoms include frequent eructation and abdominal discomfort. Pt has no more urinary complaints. Pt received ceftriaxone. She states that she has urinated w/o concern this AM. Pt denies SOB and CP and takes eliquis for PE found on last visit. Denies new food, sick contacts, or recent travel. She denies NVF and chills. OBJECTIVE: Vital Signs Last Vital Signs Temp Pulse Resp BP Pulse Ox 98.4 F 90 18 130/75 99 09/22/18 06:00 09/22/18 06:00 09/22/18 06:00 09/22/18 06:00 09/22/18 03:32 GENERAL: The patient is awake, alert, and fully oriented, in no acute distress. Speaks Polish. HEAD: Normal with no signs of trauma. EYES: PERRLA, extraocular movements intact, sclera anicteric, conjunctiva clear. No ptosis. ENT: Ears grossly normal, nares patent, moist mucous membranes. NECK: Trachea midline, full range of motion, supple. LUNGS: Breath sounds equal, clear to auscultation bilaterally, no wheezes, no crackles, no accessory muscle use. HEART: Regular rate and rhythm, S1, S2 without murmur, rub or gallop. ABDOMEN: Obese, soft, nontender, nondistended, normoactive bowel sounds, no guarding, no rebound, no hepatosplenomegaly, no masses. EXTREMITIES: 2+ pulses, warm, well-perfused, no edema, +excoriations BL UE. NEUROLOGICAL: Cranial nerves II through XII grossly intact. Normal speech, gait not observed. PSYCH: Anxious, otherwise normal mood, normal affect. SKIN: BL UE excoriation. Warm, dry, normal turgor, Laboratory Results - last 24 hr 09/21/18 09/21/18 09/21/18 15:20 15:20 15:20 WBC 6.9 RBC 3.48 L Hgb 9.5 L Hct 29.3 L MCV 84.3 MCH 27.2 MCHC 32.3 RDW 18.3 H Plt Count 132 L MPV 9.4 Absolute Neuts (auto) 5.1 Neutrophils % 74.9 Lymphocytes % 13.4 D Monocytes % 10.5 H Eosinophils % 0.4 Basophils % 0.8 Nucleated RBC % 0 Sodium 139 Potassium 3.8 Chloride 105 Carbon Dioxide 24 Anion Gap 9 BUN 9.5 Creatinine 0.9 Est GFR (CKD-EPI)AfAm 80.55 Est GFR (CKD-EPI)NonAf 69.50 POC Glucometer Random Glucose 92 Lactic Acid Calcium 8.5 Total Bilirubin 0.7 AST 9 L ALT 21 Alkaline Phosphatase 59 Troponin I 0.02 Total Protein 6.1 L Albumin 3.5 Lipase Urine Color Yellow Urine Appearance Cloudy Urine pH 7.0 D Ur Specific [place] 1.022 Urine Protein Trace Urine Glucose (UA) Negative Urine Ketones Trace H Urine Blood 3+ H Urine Nitrite Negative Urine Bilirubin Negative Urine Urobilinogen 0.2 Ur Leukocyte Esterase 1+ H Urine WBC (Auto) 2 Urine RBC (Auto) 5.9 Urine Casts (Auto) 24 U Epithel Cells (Auto) 2.6 Urine Bacteria (Auto) 2196.3 Stool Occult Blood 09/21/18 09/21/18 09/21/18 15:20 15:20 16:30 WBC RBC Hgb Hct MCV MCH MCHC RDW Plt Count MPV Absolute Neuts (auto) Neutrophils % Lymphocytes % Monocytes % Eosinophils % Basophils % Nucleated RBC % Sodium Potassium Chloride Carbon Dioxide Anion Gap BUN Creatinine Est GFR (CKD-EPI)AfAm Est GFR (CKD-EPI)NonAf POC Glucometer Random Glucose Lactic Acid 1.8 Calcium Total Bilirubin AST ALT Alkaline Phosphatase Troponin I Total Protein Albumin Lipase 530 H Urine Color Urine Appearance Urine pH Ur Specific [place] Urine Protein Urine Glucose (UA) Urine Ketones Urine Blood Urine Nitrite Urine Bilirubin Urine Urobilinogen Ur Leukocyte Esterase Urine WBC (Auto) Urine RBC (Auto) Urine Casts (Auto) U Epithel Cells (Auto) Urine Bacteria (Auto) Stool Occult Blood Negative 09/21/18 09/22/18 09/22/18 23:32 06:23 06:35 WBC 6.7 RBC 3.61 Hgb 9.9 L Hct 30.7 L MCV 85.0 MCH 27.3 MCHC 32.2 RDW 18.2 H Plt Count 122 L MPV 8.8 Absolute Neuts (auto) 5.6 Neutrophils % 82.8 Lymphocytes % 5.4 L D Monocytes % 9.7 Eosinophils % 1.5 D Basophils % 0.6 Nucleated RBC % 0 Sodium Potassium Chloride Carbon Dioxide Anion Gap BUN Creatinine Est GFR (CKD-EPI)AfAm Est GFR (CKD-EPI)NonAf POC Glucometer 97 90 Random Glucose Lactic Acid Calcium Total Bilirubin AST ALT Alkaline Phosphatase Troponin I Total Protein Albumin Lipase Urine Color Urine Appearance Urine pH Ur Specific [place] Urine Protein Urine Glucose (UA) Urine Ketones Urine Blood Urine Nitrite Urine Bilirubin Urine Urobilinogen Ur Leukocyte Esterase Urine WBC (Auto) Urine RBC (Auto) Urine Casts (Auto) U Epithel Cells (Auto) Urine Bacteria (Auto) Stool Occult Blood 09/22/18 06:35 WBC RBC Hgb Hct MCV MCH MCHC RDW Plt Count MPV Absolute Neuts (auto) Neutrophils % Lymphocytes % Monocytes % Eosinophils % Basophils % Nucleated RBC % Sodium 138 Potassium 3.8 Chloride 104 Carbon Dioxide 26 Anion Gap 8 BUN 7.5 Creatinine 0.6 Est GFR (CKD-EPI)AfAm 114.82 Est GFR (CKD-EPI)NonAf 99.07 POC Glucometer Random Glucose 89 Lactic Acid Calcium 8.7 Total Bilirubin 0.6 AST 9 L ALT 19 Alkaline Phosphatase 58 Troponin I Total Protein 6.1 L Albumin 3.4 Lipase Urine Color Urine Appearance Urine pH Ur Specific [place] Urine Protein Urine Glucose (UA) Urine Ketones Urine Blood Urine Nitrite Urine Bilirubin Urine Urobilinogen Ur Leukocyte Esterase Urine WBC (Auto) Urine RBC (Auto) Urine Casts (Auto) U Epithel Cells (Auto) Urine Bacteria (Auto) Stool Occult Blood Active Medications Acetaminophen (Tylenol -) 650 mg PO Q6H PRN PRN Reason: Fever Or Pain Last Admin: 09/22/18 08:27 Dose: 650 mg Albuterol Sulfate (Ventolin 0.083% Nebulizer Soln -) 1 amp NEB Q6H PRN PRN Reason: SHORTNESS OF BREATH Apixaban (Eliquis -) 10 mg PO BID PENDING SALE TO [facility] Stop: 09/27/18 10:01 Last Admin: 09/22/18 10:53 Dose: Not Given Aspirin (Ecotrin -) 81 mg PO DAILY PENDING SALE TO [facility] Last Admin: 09/22/18 10:51 Dose: 81 mg Atorvastatin Calcium (Lipitor -) 20 mg PO HS PENDING SALE TO [facility] Last Admin: 09/21/18 22:25 Dose: 20 mg Bethanechol Chloride (Urecholine -) 5 mg PO TID PENDING SALE TO [facility] Last Admin: 09/22/18 05:45 Dose: 5 mg Carvedilol (Coreg -) 6.25 mg PO BID PENDING SALE TO [facility] Last Admin: 09/22/18 10:51 Dose: 6.25 mg Cholecalciferol (Vitamin D3 -) 5,000 unit PO DAILY PENDING SALE TO [facility] Last Admin: 09/22/18 10:50 Dose: 5,000 unit Furosemide (Lasix -) 20 mg PO DAILY PENDING SALE TO [facility] Last Admin: 09/22/18 10:51 Dose: 20 mg Ceftriaxone Sodium 1 gm/ (Dextrose) 50 mls @ 100 mls/hr IVPB DAILY PENDING SALE TO [facility]; Protocol Last Admin: 09/22/18 10:50 Dose: 100 mls/hr Pantoprazole Sodium (Protonix -) 20 mg PO BID PENDING SALE TO [facility] Last Admin: 09/22/18 10:50 Dose: 20 mg Prednisone (Deltasone -) 10 mg PO DAILY PENDING SALE TO [facility] Last Admin: 09/22/18 10:50 Dose: 10 mg Ramipril (Altace -) 2.5 mg PO DAILY PENDING SALE TO [facility] Last Admin: 09/22/18 10:53 Dose: 2.5 mg ASSESSMENT/PLAN: 62 y/o F presenting with subacute diarrheal illness and UTI #Acute viral gastroenteritis - C diff culture NEGATIVE - Encouraged PO hydration - Cont. to provide acetominophen for pain #Urinary retention/UTI - On oxybutinin at home and bethanechol during this visit - Admission urinanlysis results demonstrate + blood + ketones + esterase - Admission abd/pelvic CT showed 400 cc urine retention but post void bladder scan today shows 150 cc. Pt not presently symptomatic. - Cont. ceftriaxone, d/c appropriately pending urine culture results - Urine culture collected yesterday, lab states will be cultured today / submission after 4pm yesterday, results expected tomorrow #Hepatic lesions - Abd/pelvic CT shows multiple hepatic foci. 09/15 Biopsy negative. Negative tumor markers. Negative FOBT. - Pt has scheduled apt w oncology (Dr. Javier) in September. #PE - Cont. current regimen today - Switch to eliquis 5mg BID starting 09/23/18 # F/E/N - PO hydration, no standing fluids - Cont. to monitor electrolytes - Regular diet #Prophylaxis - Regular ambulation #Dispo Full code Visit type - Emergency Visit Emergency Visit: Yes ED Registration Date: 09/21/18 Care time: The patient presented to the Emergency Department on the above date and was hospitalized for further evaluation of their emergent condition. - New Patient This patient is new to me today: Yes Date on this admission: 09/22/18 - Critical Care Critical Care patient: No - Discharge Referral Referred to [facility] Med P.C.: No ATTENDING PHYSICIAN STATEMENT I saw and evaluated the patient. I reviewed the resident's note and discussed the case with the resident. I agree with the resident's findings and plan as documented. SUBJECTIVE: OBJECTIVE: ASSESSMENT AND PLAN:
--- NOTE | 2018-09-22 14:26 | EKG ---
Test Reason : Blood Pressure : / mmHG Vent. Rate : 083 BPM Atrial Rate : 083 BPM P-R Int : 184 ms QRS Dur : 154 ms QT Int : 442 ms P-R-T Axes : 000 -62 104 degrees QTc Int : 519 ms AV dual-paced rhythm ABNORMAL ECG WHEN COMPARED WITH ECG OF 09-SEP-2018 09:31, PREMATURE VENTRICULAR COMPLEXES ARE NO LONGER PRESENT VENT. RATE HAS DECREASED BY 12 BPM Confirmed by JOSUE ALLEN, CECILIA ([id number]) on 09/22/2018 2:26:01 PM Referred By: Confirmed By:CECILIA SALAS MD
--- NOTE | 2018-09-22 16:41 | PN ---
Teaching Attending Note Name of Resident: Yair Ferro ATTENDING PHYSICIAN STATEMENT I saw and evaluated the patient. I reviewed the resident's note and discussed the case with the resident. I agree with the resident's findings and plan as documented. SUBJECTIVE: Complains of abdominal pain after eating. No nausea/vomiting. Diarrhea resolved. No fever/chills. OBJECTIVE: Afebrile, Hemodynamically Stable. Last Vital Signs Temp Pulse Resp BP Pulse Ox 98.4 F 90 18 130/75 99 09/22/18 06:00 09/22/18 06:00 09/22/18 06:00 09/22/18 06:00 09/22/18 03:32 HEENT - Atraumatic, Normocephalic. Heart - S1, S2, RRR Lungs - clear to auscultation Abdomen - Soft, non-tender. Bowel Sounds normal. Extremities - Edema ++ Laboratory Results - last 24 hr 09/21/18 09/21/18 09/21/18 15:20 15:20 15:20 WBC 6.9 RBC 3.48 L Hgb 9.5 L Hct 29.3 L MCV 84.3 MCH 27.2 MCHC 32.3 RDW 18.3 H Plt Count 132 L MPV 9.4 Absolute Neuts (auto) 5.1 Neutrophils % 74.9 Lymphocytes % 13.4 D Monocytes % 10.5 H Eosinophils % 0.4 Basophils % 0.8 Nucleated RBC % 0 Sodium Potassium Chloride Carbon Dioxide Anion Gap BUN Creatinine Est GFR (CKD-EPI)AfAm Est GFR (CKD-EPI)NonAf POC Glucometer Random Glucose Calcium Total Bilirubin AST ALT Alkaline Phosphatase Troponin I 0.02 Total Protein Albumin Urine Color Yellow Urine Appearance Cloudy Urine pH 7.0 D Ur Specific [place] 1.022 Urine Protein Trace Urine Glucose (UA) Negative Urine Ketones Trace H Urine Blood 3+ H Urine Nitrite Negative Urine Bilirubin Negative Urine Urobilinogen 0.2 Ur Leukocyte Esterase 1+ H Urine WBC (Auto) 2 Urine RBC (Auto) 5.9 Urine Casts (Auto) 24 U Epithel Cells (Auto) 2.6 Urine Bacteria (Auto) 2196.3 Stool Occult Blood 09/21/18 09/21/18 09/22/18 16:30 23:32 06:23 WBC RBC Hgb Hct MCV MCH MCHC RDW Plt Count MPV Absolute Neuts (auto) Neutrophils % Lymphocytes % Monocytes % Eosinophils % Basophils % Nucleated RBC % Sodium Potassium Chloride Carbon Dioxide Anion Gap BUN Creatinine Est GFR (CKD-EPI)AfAm Est GFR (CKD-EPI)NonAf POC Glucometer 97 90 Random Glucose Calcium Total Bilirubin AST ALT Alkaline Phosphatase Troponin I Total Protein Albumin Urine Color Urine Appearance Urine pH Ur Specific [place] Urine Protein Urine Glucose (UA) Urine Ketones Urine Blood Urine Nitrite Urine Bilirubin Urine Urobilinogen Ur Leukocyte Esterase Urine WBC (Auto) Urine RBC (Auto) Urine Casts (Auto) U Epithel Cells (Auto) Urine Bacteria (Auto) Stool Occult Blood Negative 09/22/18 09/22/18 09/22/18 06:35 06:35 10:36 WBC 6.7 RBC 3.61 Hgb 9.9 L Hct 30.7 L MCV 85.0 MCH 27.3 MCHC 32.2 RDW 18.2 H Plt Count 122 L MPV 8.8 Absolute Neuts (auto) 5.6 Neutrophils % 82.8 Lymphocytes % 5.4 L D Monocytes % 9.7 Eosinophils % 1.5 D Basophils % 0.6 Nucleated RBC % 0 Sodium 138 Potassium 3.8 Chloride 104 Carbon Dioxide 26 Anion Gap 8 BUN 7.5 Creatinine 0.6 Est GFR (CKD-EPI)AfAm 114.82 Est GFR (CKD-EPI)NonAf 99.07 POC Glucometer 159 Random Glucose 89 Calcium 8.7 Total Bilirubin 0.6 AST 9 L ALT 19 Alkaline Phosphatase 58 Troponin I Total Protein 6.1 L Albumin 3.4 Urine Color Urine Appearance Urine pH Ur Specific [place] Urine Protein Urine Glucose (UA) Urine Ketones Urine Blood Urine Nitrite Urine Bilirubin Urine Urobilinogen Ur Leukocyte Esterase Urine WBC (Auto) Urine RBC (Auto) Urine Casts (Auto) U Epithel Cells (Auto) Urine Bacteria (Auto) Stool Occult Blood Current Medications Generic Name Dose Route Start Last Admin Trade Name Freq PRN Reason Stop Dose Admin Acetaminophen 650 mg 09/21/18 20:20 09/22/18 08:27 Tylenol - PO 650 mg Q6H PRN Administration Fever Or Pain Albuterol Sulfate 1 amp 09/21/18 21:26 Ventolin 0.083% Nebulizer Soln - NEB Q6H PRN SHORTNESS OF BREATH Apixaban 10 mg 09/21/18 22:00 09/22/18 10:53 Eliquis - PO 09/27/18 10:01 Not Given BID CHANG Aspirin 81 mg 09/22/18 10:00 09/22/18 10:51 Ecotrin - PO 81 mg DAILY CHANG Administration Atorvastatin Calcium 20 mg 09/21/18 22:00 09/21/18 22:25 Lipitor - PO 20 mg HS CHANG Administration Bethanechol Chloride 5 mg 09/21/18 22:00 09/22/18 14:17 Urecholine - PO 5 mg TID CHANG Administration Carvedilol 6.25 mg 09/21/18 22:00 09/22/18 10:51 Coreg - PO 6.25 mg BID CHANG Administration Cholecalciferol 5,000 unit 09/22/18 10:00 09/22/18 10:50 Vitamin D3 - PO 5,000 unit DAILY CHANG Administration Furosemide 20 mg 09/22/18 10:00 09/22/18 10:51 Lasix - PO 20 mg DAILY CHANG Administration Ceftriaxone Sodium 1 gm/ 50 mls @ 100 mls/hr 09/22/18 10:00 09/22/18 10:50 Dextrose IVPB 100 mls/hr DAILY CHANG Administration Protocol Pantoprazole Sodium 20 mg 09/21/18 22:00 09/22/18 10:50 Protonix - PO 20 mg BID CHANG Administration Prednisone 10 mg 09/22/18 10:00 09/22/18 10:50 Deltasone - PO 10 mg DAILY CHANG Administration Ramipril 2.5 mg 09/22/18 10:00 09/22/18 10:53 Altace - PO 2.5 mg DAILY CHANG Administration Home Medications Medication Instructions Recorded Tolterodine Tartrate 2 mg PO DAILY 02/15/15 Cholecalciferol (Vitamin D3) 5,000 unit PO DAILY 03/08/15 [Vitamin D3] Atorvastatin Ca [Lipitor] 20 mg PO HS 06/04/16 Carvedilol 6.25 mg PO BID 06/04/16 Omeprazole 20 mg PO BID 06/04/16 Ramipril 2.5 mg PO DAILY 06/04/16 Furosemide [Lasix] 20 mg PO DAILY 06/07/18 Albuterol 0.083% Nebulizer Sheeba 1 amp NEB PRN PRN 09/05/18 [Ventolin 0.083% Nebulizer Soln -] Albuterol Sulfate [Proair Hfa] 1 - 2 inh IH PRN 09/05/18 Aspirin [Ecotrin] 81 mg PO DAILY 09/05/18 Apixaban [Eliquis] 10 mg PO BID #70 tablet 09/15/18 Prednisone 10 mg PO DAILY #30 tablet 09/16/18 ASSESSMENT AND PLAN: 62 year old female with history of Sarcoidosis, Chronic Systolic CHF, s/p MV replacement, TV repair, HTN, HLD, COPD, GERD, recent admission for bilateral PE (started on Eliquis)presented with epigastric discomfort and diarrhea. No melena /hematochezia. CT A/P - bilateral non-obstructing renal calculi; hepatic hypodense foci (Bx negative); distended urinary bladder. 1. Acute Gastritis, possible viral gastroenteritis - resolving Diarrhea resolved. Cdiff negative. No fever/chills. Tolerating oral intake Resume PPI. 2. Chronic/recurrent urinary retention Started on trial of bechanechol. Post-void residual <200ml on floor. No acute retention. Continue Tolterodine. For out-patient urology/urodynamic studies. 3. Possible UTI UA positive. Continue Ceftriaxone pending urine Cx. 4. Hepatic lesions - biopsies neg for malignancy and granulomas For Oncology follow up as out-patient. 5. Acute Bilateral PE (recent admission) Continue Eliquis. 6. Chronic Systolic CHF - Stable, no evidence of exacerbation. Echo (09/10/18) < 40% Continue Ramipril, Lasix, Carvedilol. 7. Sarcoidosis - Continue Prednisone. DVT Px- on Apixaban
[2018-09-22] MEDS: ATORVASTATIN CA 20 MG TABLET (FP) PO SCH (21:31)
[2018-09-23] MEDS: ALBUTEROL SO4 0.083% IH SOL 2.5 MG/3 ML VIAL.NEB. NEB PRN ×2 (03:00→08:28)
[2018-09-23] MEDS: BETHANECHOL CHLORIDE 5 MG TABLET PO SCH ×2 (06:07→13:04)
[2018-09-23 07:44] LABS: BASO % 0.3 % (0-2.0); EOS % 0.9 % (0-4.5); MCH 27.3 pg (25.7-33.7); MCHC 32.3 g/dl (32.0-36.0); MEAN CELL VOLUME 84.6 fl (80-96); MEAN PLT VOLUME 8.2 fl (7.5-11.1); NEUT % 86.8 % (42.8-82.8); PLATELET COUNT 116 K/MM3 (134-434); RBC 3.67 M/mm3 (3.60-5.2); RDW 18.4 % (11.6-15.6); WHITE BLOOD COUNT 9.1 K/mm3 (4.0-10.0)
[2018-09-23 08:13] LABS: BLOOD UREA NITROGEN 13.6 mg/dL (7-18); CALCIUM 8.6 mg/dL (8.5-10.1); CREATININE 0.7 mg/dL (0.55-1.3); MAGNESIUM 2.3 mg/dL (1.8-2.4); PHOSPHOROUS 3.6 mg/dL (2.5-4.9); POTASSIUM 3.7 mmol/L (3.5-5.1)
[2018-09-23] MEDS ORDERED: PT OWN MED DRAWER 7, Y5N ONE ×2 (09:16→13:02)
[2018-09-23] MEDS: CARVEDILOL 6.25 MG TABLET (FP) PO SCH (09:57)
[2018-09-23] MEDS: RAMIPRIL 2.5 MG CAPSULE (FP) PO SCH (09:57)
[2018-09-23] MEDS: PANTOPRAZOLE 20 MG TABLET (FP) PO SCH (09:57)
[2018-09-23] MEDS: CHOLECALCIFEROL (VIT D3) 1,000 UNIT (25 MCG) TABLET PO SCH (09:57)
[2018-09-23] MEDS: predniSONE 10 MG TABLET (UD) PO SCH (09:57)
[2018-09-23] MEDS ORDERED: CEPHALEXIN MONOHYDRATE 500 MG CAPSULE (UD) PO SCH (10:00)
[2018-09-23] MEDS ORDERED: APIXABAN 5 MG TABLET PO SCH (10:00)
[2018-09-23] MEDS: FUROSEMIDE 20 MG TABLET (FP) PO SCH (10:00)
[2018-09-23] MEDS: ASPIRIN COATED 81 MG TABLET.EC PO SCH (10:01)
[2018-09-23 10:26] VITALS: BP 106/60; PULSE 95; TEMP 97.4
--- NOTE | 2018-09-23 11:38 | PN ---
Teaching Attending Note Name of Resident: Yair Ferro ATTENDING PHYSICIAN STATEMENT I saw and evaluated the patient. I reviewed the resident's note and discussed the case with the resident. I agree with the resident's findings and plan as documented. SUBJECTIVE: No further abdominal pain. No nausea/vomiting. Diarrhea resolved. No fever/chills. No dysuria/hematuria. OBJECTIVE: Afebrile, Hemodynamically Stable. Last Vital Signs Temp Pulse Resp BP Pulse Ox 97.4 F L 95 H 20 106/60 100 09/23/18 10:00 09/23/18 10:00 09/23/18 10:00 09/23/18 10:00 09/23/18 06:00 Heart - S1, S2, RRR Lungs - clear to auscultation Abdomen - Soft, non-tender. Bowel Sounds normal. Extremities - Edema ++ (chronic) Laboratory Results - last 24 hr 09/22/18 09/23/18 09/23/18 21:43 05:53 07:08 WBC 9.1 RBC 3.67 Hgb 10.0 L Hct 31.0 L MCV 84.6 MCH 27.3 MCHC 32.3 RDW 18.4 H Plt Count 116 L MPV 8.2 Absolute Neuts (auto) 7.9 Neutrophils % 86.8 H Lymphocytes % 5.0 L Monocytes % 7.0 Eosinophils % 0.9 Basophils % 0.3 Nucleated RBC % 0 Sodium Potassium Chloride Carbon Dioxide Anion Gap BUN Creatinine Est GFR (CKD-EPI)AfAm Est GFR (CKD-EPI)NonAf POC Glucometer 180 109 Random Glucose Calcium Phosphorus Magnesium 09/23/18 07:08 WBC RBC Hgb Hct MCV MCH MCHC RDW Plt Count MPV Absolute Neuts (auto) Neutrophils % Lymphocytes % Monocytes % Eosinophils % Basophils % Nucleated RBC % Sodium 138 Potassium 3.7 Chloride 104 Carbon Dioxide 26 Anion Gap 9 BUN 13.6 Creatinine 0.7 Est GFR (CKD-EPI)AfAm 109.15 Est GFR (CKD-EPI)NonAf 94.17 POC Glucometer Random Glucose 102 Calcium 8.6 Phosphorus 3.6 Magnesium 2.3 Current Medications Generic Name Dose Route Start Last Admin Trade Name Freq PRN Reason Stop Dose Admin Acetaminophen 650 mg 09/21/18 20:20 09/22/18 08:27 Tylenol - PO 650 mg Q6H PRN Administration Fever Or Pain Albuterol Sulfate 1 amp 09/21/18 21:26 09/23/18 08:28 Ventolin 0.083% Nebulizer Soln - NEB 1 amp Q6H PRN Administration SHORTNESS OF BREATH Apixaban 5 mg 09/23/18 10:00 09/23/18 09:58 Eliquis - PO 5 mg BID CHANG Administration Aspirin 81 mg 09/22/18 10:00 09/23/18 10:01 Ecotrin - PO Not Given DAILY CHANG Atorvastatin Calcium 20 mg 09/21/18 22:00 09/22/18 21:31 Lipitor - PO 20 mg HS CHANG Administration Bethanechol Chloride 5 mg 09/21/18 22:00 09/23/18 06:07 Urecholine - PO 5 mg TID CHANG Administration Carvedilol 6.25 mg 09/21/18 22:00 09/23/18 09:57 Coreg - PO 6.25 mg BID CHANG Administration Cephalexin HCl 500 mg 09/23/18 10:00 09/23/18 09:57 Keflex - PO 500 mg BID CHANG Administration Cholecalciferol 5,000 unit 09/22/18 10:00 09/23/18 09:57 Vitamin D3 - PO 5,000 unit DAILY CHANG Administration Furosemide 20 mg 09/22/18 10:00 09/23/18 10:00 Lasix - PO Not Given DAILY CHANG Pantoprazole Sodium 20 mg 09/21/18 22:00 09/23/18 09:57 Protonix - PO 20 mg BID CHANG Administration Prednisone 10 mg 09/22/18 10:00 09/23/18 09:57 Deltasone - PO 10 mg DAILY CHANG Administration Ramipril 2.5 mg 09/22/18 10:00 09/23/18 09:57 Altace - PO 2.5 mg DAILY CHANG Administration ASSESSMENT AND PLAN: 62 year old female with history of Sarcoidosis, Chronic Systolic CHF, s/p MV replacement, TV repair, HTN, HLD, COPD, GERD, recent admission for bilateral PE (started on Eliquis)presented with epigastric discomfort and diarrhea. No melena /hematochezia. CT A/P - bilateral non-obstructing renal calculi; hepatic hypodense foci (Bx negative); distended urinary bladder. 1. Acute Gastritis, possible viral gastroenteritis - resolving Diarrhea resolved. Cdiff negative. No fever/chills. Tolerating oral intake Resumed on PPI. 2. Chronic/recurrent urinary retention, Bilateral Non-obstructing Renal calculi on Imaging Started on trial of bechanechol. Post-void residual <200ml on floor. No acute retention. Continue Tolterodine. For out-patient urology/urodynamic studies. 3. UTI UCx positive for coag neg staph. Afebrile, Hemodynamically stable. Continue Cephalosporin for total 3 days. 4. Hepatic lesions - biopsies neg for malignancy and granulomas For Oncology follow up as out-patient. 5. Acute Bilateral PE (recent admission) Continue Eliquis. 6. Chronic Systolic CHF - Stable, no evidence of exacerbation. Echo (09/10/18) < 40% Continue Ramipril, Lasix, Carvedilol. 7. Sarcoidosis - Continue Prednisone. DVT Px - on Apixaban Dispo - PT and likely home with out-patient PT and visiting nurse.
[2018-09-23] MEDS: ACETAMINOPHEN 325 MG TABLET (FP) PO PRN (13:03)
--- NOTE | 2018-09-23 13:56 | DS ---
Physical Exam: SUBJECTIVE: 62 y/o F seen today at bedside with no current complaints ALLISON 3. She was admitted for abdominal pain and found to have UTI. She also complained of 5 days of diarrhea prior to visit but resolved during this stay. She denies any urinary concerns. She is passing stool without issue. Denies NVFD. Pt denies SOB, CP, HALE, and palpitations. She has no joint pains and denies lethargy. OBJECTIVE: Vital Signs Last Vital Signs Temp Pulse Resp BP Pulse Ox 97.4 F L 95 H 20 106/60 100 09/23/18 10:00 09/23/18 10:00 09/23/18 10:00 09/23/18 10:09/23/18 06:00 PHYSICAL EXAM GENERAL: The patient is awake, alert, and fully oriented, in no acute distress. Speak in [place]. HEAD: Normal with no signs of trauma. EYES: PERRLA, extraocular movements intact, sclera anicteric, conjunctiva clear. Wears corrective lenses. ENT: Ears normal, nares patent, oropharynx clear without exudates, moist mucous membranes. NECK: Trachea midline, full range of motion, supple. LUNGS: Breath sounds equal, clear to auscultation bilaterally, no wheezes, no crackles, no accessory muscle use. HEART: Regular rate and rhythm, S1, S2 without murmur, rub or gallop. ABDOMEN: Obese, soft, nontender, nondistended, normoactive bowel sounds, no guarding, no rebound, no hepatosplenomegaly, no masses. EXTREMITIES: BL UE excoriation. 2+ pulses, warm, well-perfused, no edema. NEUROLOGICAL: Cranial nerves II through XII grossly intact. Normal speech, gait not observed. PSYCH: Anxious. Normal mood, normal affect. SKIN: Warm, dry, normal turgor, no rashes or lesions noted. LABS Laboratory Results - last 24 hr 09/22/18 09/23/18 09/23/18 21:43 05:53 07:08 WBC 9.1 RBC 3.67 Hgb 10.0 L Hct 31.0 L MCV 84.6 MCH 27.3 MCHC 32.3 RDW 18.4 H Plt Count 116 L MPV 8.2 Absolute Neuts (auto) 7.9 Neutrophils % 86.8 H Lymphocytes % 5.0 L Monocytes % 7.0 Eosinophils % 0.9 Basophils % 0.3 Nucleated RBC % 0 Sodium Potassium Chloride Carbon Dioxide Anion Gap BUN Creatinine Est GFR (CKD-EPI)AfAm Est GFR (CKD-EPI)NonAf POC Glucometer 180 109 Random Glucose Calcium Phosphorus Magnesium 09/23/18 07:08 WBC RBC Hgb Hct MCV MCH MCHC RDW Plt Count MPV Absolute Neuts (auto) Neutrophils % Lymphocytes % Monocytes % Eosinophils % Basophils % Nucleated RBC % Sodium 138 Potassium 3.7 Chloride 104 Carbon Dioxide 26 Anion Gap 9 BUN 13.6 Creatinine 0.7 Est GFR (CKD-EPI)AfAm 109.15 Est GFR (CKD-EPI)NonAf 94.17 POC Glucometer Random Glucose 102 Calcium 8.6 Phosphorus 3.6 Magnesium 2.3 HOSPITAL COURSE: Date of Admission:09/21/18 62 y/o F with h/o CHF NYHA3, sarcoidosis, HTN, HLD, PE on eliquis with UTI. She was admitted with abdominal pain with h/o diarrhea. Pt c. diff NEG, FOBT NEG, and CT NEG. Urine culture POSITIVE for staphylococcus coagulase negative. She was treated with cephalosporins for 3 days. She experienced resolution of symptoms during hospital stay and recommended to f/u with her PCP. IMAGING 09/21/18 CT ABDOMEN/PELVIS CTA W/WO CONTRAST No definite CT evidence of acute bowel ischemia. Early acute ischemia may not be demonstrable on CT.In comparison to a previous CT exam of 09/09/2018 note is again made of several small nonspecific hepatic hypodense foci - ? neoplastic disease, ? granulomas (given a history of sarcoidosis). Correlate with the results of CT guided biopsy performed on 09/15/2018. Status post cholecystectomy.Bilateral nonobstructing renal calculi. As on the prior study the urinary bladder demonstrates a mildly saccular border suggestive of a neurogenic bladder. Also as the prior study the urinary bladder volume is 400 mL - ? mild chronic retention. 09/21/18 CXR A single AP view of the chest is been submitted. Since 09/09/2018 there is no significant change and no sign of an acute process. Then noted is the prominent mediastinum, sternal sutures and double lead pacemaker. The lungs are clear. Date of Discharge: 09/23/18 Minutes to complete discharge: 40 Discharge Summary Reason For Visit: DIARRHEA ABDOMINAL PAIN Condition: Stable - Instructions Diet, Activity, Other Instructions: YOUR VISIT You were admitted to hospital and found to have a urinary tract infection. You were treated for this infection with antibiotics. We will give you a prescription for your final dose of antibiotics for your urinary tract infection. You also reported diarrhea before your visit and stool culture was negative. It is important that you follow up with your primary care doctor. MEDICATIONS Keflex (cephalexin) 1 pill tonight for your urinary tract infection. Lactobacillus 1 tab daily for 7 days. Eliquis: You should now take Eliquis 5mg TWICE a day starting tonight. STOP taking your aspirin and avoid medications such as ibuprofen and naproxen. Continue your other home medications. FOLLOW UP It is important that you see you primary care provider for management of your medical conditions. ADDITIONAL INFORMATION If you experience sudden shortness of breath, difficulty breathing, chest pain or other alarming symptoms, please come to the emergency department Referrals: Darryl Dennis [Primary Care Provider] - 1 Week Disposition: HOME - Home Medications Comprehensive Discharge Medication List: Ambulatory Orders Tolterodine Tartrate 2 mg PO DAILY 02/15/15 Cholecalciferol (Vitamin D3) [Vitamin D3] 5,000 unit PO DAILY 03/08/15 Atorvastatin Ca [Lipitor] 20 mg PO HS 06/04/16 Carvedilol 6.25 mg PO BID 06/04/16 Omeprazole 20 mg PO BID 06/04/16 Ramipril 2.5 mg PO DAILY 06/04/16 Furosemide [Lasix] 20 mg PO DAILY 06/07/18 Albuterol 0.083% Nebulizer Sheeba [Ventolin 0.083% Nebulizer Soln -] 1 amp NEB PRN PRN 09/05/18 Albuterol Sulfate [Proair Hfa] 1 - 2 inh IH PRN 09/05/18 Apixaban [Eliquis] 10 mg PO BID #70 tablet 09/15/18 Prednisone 10 mg PO DAILY #30 tablet 09/16/18 Acetaminophen [Tylenol .Regular Strength -] 650 mg PO Q6H PRN tablet 09/23/18 Apixaban [Eliquis -] 5 mg PO BID tablet 09/23/18 Bethanechol Chloride [Bethanechol Chloride -] 5 mg PO TID tablet 09/23/18 Cephalexin [Keflex] 500 mg PO ONCE #1 capsule 09/23/18 Lactobacillus Acidophilus [Acidophilus Lactobacilli] 1 each PO DAILY #7 capsule 09/23/18 This patient is new to me today: No Emergency Visit: No Critical Care patient: No - Discharge Referral Referred to [facility] No ATTENDING PHYSICIAN STATEMENT I saw and evaluated the patient. I reviewed the resident's note and discussed the case with the resident. I agree with the resident's findings and plan as documented. SUBJECTIVE: OBJECTIVE: ASSESSMENT AND PLAN:
== END 2018-09-23 14:18 | disposition home or self-care (01) ==
LOC: JER 13:52 → JERBED 19:04 → J6S 20:27
PROVIDERS: ADMIT Internal Medicine
PROC: 3E03329 Introduction of Other Anti-infective into Peripheral Vein, Percutaneous Approach (ICD-10-PCS; principal; 2018-09-21)
PROC: 3E0337Z Introduction of Electrolytic and Water Balance Substance into Peripheral Vein, Percutaneous Approach (ICD-10-PCS; 2018-09-21)
PROC: 3E033NZ Introduction of Analgesics, Hypnotics, Sedatives into Peripheral Vein, Percutaneous Approach (ICD-10-PCS; 2018-09-21)
PROC: 3E0F7GC Introduction of Other Therapeutic Substance into Respiratory Tract, Via Natural or Artificial Opening (ICD-10-PCS; 2018-09-21)
DX: A08.4 Viral intestinal infection, unspecified (principal); N39.0 Urinary tract infection, site not specified; R10.84 Generalized abdominal pain; R19.7 Diarrhea, unspecified; I11.0 Hypertensive heart disease with heart failure; I50.32 Chronic diastolic (congestive) heart failure; K21.9 Gastro-esophageal reflux disease without esophagitis; J44.9 Chronic obstructive pulmonary disease, unspecified; Z86.73 Personal history of transient ischemic attack (TIA), and cerebral infarction without residual deficits; D86.9 Sarcoidosis, unspecified; I26.99 Other pulmonary embolism without acute cor pulmonale; Z79.01 Long term (current) use of anticoagulants; Z95.810 Presence of automatic (implantable) cardiac defibrillator; Z95.2 Presence of prosthetic heart valve; E78.5 Hyperlipidemia, unspecified; N31.9 Neuromuscular dysfunction of bladder, unspecified; K76.89 Other specified diseases of liver; Z85.118 Personal history of other malignant neoplasm of bronchus and lung; R33.9 Retention of urine, unspecified; N20.0 Calculus of kidney
CPT/HCPCS: 36415; 71045-TC-FY; 72191-TC; 74175-TC; 80048; 80053; 81003; 82272; 82962; 83605; 83690; 83735; 84100; 84484; 85025; 87040; 87086; 87186; 87324; 87449; 93005; 93010; 94640; 97116-GP; 97161-GP; 99284-25; G0378

== ENCOUNTER 2018-10-09 10:46 | Inpatient (IN) | payer BC, OTHER ==
--- NOTE | 2018-10-09 11:06 | PDOC ---
History of Present Illness - General Chief Complaint: Shortness of Breath Stated Complaint: DIFFICULTY BREATHING Time Seen by Provider: 10/09/18 10:56 - History of Present Illness Initial Comments: 10/09/18 11:45 62 year old female with PMHx of NYHA III systolic CHF, sarcoidosis, HTN, HLD presents to the ed with 2 days of difficulty breathing with wheezing. According to her friend who takes care of her she refuses to take her water pill and lives in a very hot apartment without any air conditioning. She does however, willingly take her Eliquis. According to friend, she's been eating less and less. She denies fever, chills chest pain, abdominal pain. Patient is a poor historian. Recently found to have blood in her urine. Past History - Past Medical History Allergies/Adverse Reactions: Allergies Allergy/AdvReac Type Severity Reaction Status Date / Time amoxicillin trihydrate AdvReac Severe Verified 09/09/18 07:02 [From Augmentin] potassium clavulanate AdvReac Severe Verified 09/09/18 07:02 [From Augmentin] Home Medications: Ambulatory Orders Tolterodine Tartrate 2 mg PO DAILY 02/15/15 Cholecalciferol (Vitamin D3) [Vitamin D3] 5,000 unit PO DAILY 03/08/15 Atorvastatin Ca [Lipitor] 20 mg PO HS 06/04/16 Carvedilol 6.25 mg PO BID 06/04/16 Omeprazole 20 mg PO BID 06/04/16 Ramipril 2.5 mg PO DAILY 06/04/16 Furosemide [Lasix] 20 mg PO DAILY 06/07/18 Albuterol 0.083% Nebulizer Sheeba [Ventolin 0.083% Nebulizer Soln -] 1 amp NEB PRN PRN 09/05/18 Albuterol Sulfate [Proair Hfa] 1 - 2 inh IH PRN 09/05/18 Apixaban [Eliquis] 10 mg PO BID #70 tablet 09/15/18 Prednisone 10 mg PO DAILY #30 tablet 09/16/18 Acetaminophen [Tylenol .Regular Strength -] 650 mg PO Q6H PRN tablet 09/23/18 Apixaban [Eliquis -] 5 mg PO BID tablet 09/23/18 Bethanechol Chloride [Bethanechol Chloride -] 5 mg PO TID tablet 09/23/18 Cephalexin [Keflex] 500 mg PO ONCE #1 capsule 09/23/18 Lactobacillus Acidophilus [Acidophilus Lactobacilli] 1 each PO DAILY #7 capsule 09/23/18 Anemia: No Asthma: No Cancer: No Cardiac Disorders: Yes CVA: Yes (hemorrhagic stroke) COPD: No CHF: No Dementia: No Diabetes: No GI Disorders: No Disorders: No HTN: Yes Hypercholesterolemia: Yes Liver Disease: No Seizures: No Thyroid Disease: No - Surgical History Abdominal Surgery: No Appendectomy: No Cardiac Surgery: Yes (tricuspid repair, mitral valve replaced , defibulator - pacemaker) Cholecystectomy: Yes Lung Surgery: No Neurologic Surgery: No Orthopedic Surgery: Yes (fracture left hip) - Immunization History Immunization Up to Date: No - Suicide/Smoking/Psychosocial Hx Smoking History: Never smoked Have you smoked in the past 12 months: No Number of Cigarettes Smoked Daily: 0 If you are a former smoker, when did you quit?: 36 YRS AGO Hx Alcohol Use: No Drug/Substance Use Hx: No Substance Use Type: None Hx Substance Use Treatment: No Respiratory Specific PMHX - Complaint Specific PMHX Bronchitis: Yes Review of Systems - Review of Systems Able to Perform ROS?: Yes Is the patient limited [place] proficient: No Constitutional: No: Symptoms Reported HEENTM: No: Symptoms Reported Respiratory: Yes: See HPI Cardiac (ROS): No: Symptoms Reported ABD/GI: No: Symptoms Reported : Yes: See HPI Musculoskeletal: No: Symptoms Reported Integumentary: No: Symptoms Reported Neurological: No: Symptoms reported All Other Systems: Reviewed and Negative *Physical Exam - Physical Exam General Appearance: Yes: Moderate Distress, Obese HEENT: positive: EOMI, JULIANA, Normal ENT Inspection Respiratory/Chest: positive: Respiratory Distress, Labored Respiration, Rapid RR , Wheezing (diffusely). negative: Chest Tender Cardiovascular: positive: Regular Rhythm, Regular Rate, S1, S2 Gastrointestinal/Abdominal: positive: Normal Bowel Sounds, Flat, Soft. negative : Tender Musculoskeletal: negative: CVA Tenderness Extremity: positive: Pedal Edema (b/l pitting edema 3+) Integumentary: positive: Normal Color, Dry, Warm Neurologic: positive: Fully Oriented, Alert. negative: Normal Mood/Affect ( agitated, aggressive) ED Treatment Course - LABORATORY CBC & Chemistry Diagram: 10/09/18 11:48 10/09/18 11:48 Medical Decision Making - Medical Decision Making 10/09/18 12:12 62f with difficulty breathing for tghe past 2 days, wheezing. acute on chronic CHF exacerbation, sarcoidosis exacerbation vs asthma vs pneumonia vs PE Low suspicion for pneumonia or PE, patient not febrile, no elevated wbc, non tachy, on eliquis. Could obtain rectal temp. Patient looks like she's 3rd spacing her fluids, non-compliant with lasix., probable CHF exacerbation,. Wheezing diffusely, will administer methylprednisolonem mag and duonebs, BiPAP. Septic workup. Patient has lactate 3.7, elevated troponins and bnp in the 10,000's. Giving lasix for diuresis. UA pending. Blood and urine cx pending. Admitting to telemetry under Dr. Parrish for CHF exacerbation. *DC/Admit/Observation/Transfer Diagnosis at time of Disposition: Acute on chronic diastolic (congestive) heart failure - Discharge Dispostion Decision to Admit order: Yes - Referrals - Patient Instructions - Post Discharge Activity
[2018-10-09] MEDS ORDERED: ALBUTEROL SO4 2.5/IPRATROPIUM 0.5 INH SOL 3 ML VIAL.NEB. NEB ONE ×2 (11:13→11:29)
[2018-10-09] MEDS ORDERED: MAGNESIUM SULF 50% (8.12 MEQ/2 ML-1 GM VIAL) IVPB ONE (11:16)
[2018-10-09] MEDS ORDERED: methylPREDNISolone NA SUCC 125 MG/2 ML VIAL IVPUSH ONE (11:16)
[2018-10-09] MEDS ORDERED: methylPREDNISolone NA SUCC 125 MG/2 ML VIAL ONE (11:29)
[2018-10-09] MEDS ORDERED: MAGNESIUM 1GM/D5W - 1 GM/100 ML IVPB IVPB ONE (11:29)
[2018-10-09] MEDS ORDERED: FUROSEMIDE 40 MG/4 ML INJECTABLE VIAL IVPUSH ONE (11:38)
[2018-10-09 12:01] LABS: ARTERIAL BLD GAS O2 SATURATION 99.1 % (95-98); ARTERIAL BLOOD GAS BASE EXCESS -5.7 meq/l (-2-2); ARTERIAL BLOOD GAS PCO2 36.4 mmHg (35-45); ARTERIAL BLOOD GAS PO2 160 mmHg (80-105); ARTERIAL BLOOD GAS pH 7.34 (7.35-7.45); CARBOXYHEMOGLOBIN 0.9 % (0-2)
[2018-10-09 12:02] LABS: ALLENS TEST POSITIVE
[2018-10-09 12:09] LABS: BASO % 0.8 % (0-2.0); HEMATOCRIT 36.6 % (32.4-45.2); HEMOGLOBIN 11.5 GM/dL (10.7-15.3); LYMPH % 7.3 % (8-40); MCH 27.1 pg (25.7-33.7); MCHC 31.4 g/dl (32.0-36.0); MEAN CELL VOLUME 86.1 fl (80-96); MEAN PLT VOLUME 8.5 fl (7.5-11.1); MONO % 4.6 % (3.8-10.2); NEUT % 87.3 % (42.8-82.8); PLATELET COUNT 199 K/MM3 (134-434); RBC 4.25 M/mm3 (3.60-5.2); RDW 18.9 % (11.6-15.6); WHITE BLOOD COUNT 10.3 K/mm3 (4.0-10.0)
[2018-10-09] MEDS ORDERED: FUROSEMIDE 40 MG/4 ML INJECTABLE VIAL ONE ×2 (12:14→19:54)
--- NOTE | 2018-10-09 12:33 | PDOC ---
Documentation entered by Erica Moore SCRIBE, acting as scribe for Martha Bueno MD. Martha Bueno MD: This documentation has been prepared by the scribe, Erica Moore SCRIBE, under my direction and personally reviewed by me in its entirety. I confirm that the documentation accurately reflects all work, treatment, procedures, and medical decision making performed by me. Attending Attestation - Resident Resident Name: Hebert Villanueva - ED Attending Attestation I have performed the following: I have examined & evaluated the patient, The case was reviewed & discussed with the resident, I agree w/resident's findings & plan, Exceptions are as noted - HPI HPI: 10/09/18 11:47 The patient is a 62-year-old female, with a past medical history of NYHA III systolic CHF, recent b/l PE on eliquis, sarcoidosis, HTN, HLD, COPD, GERD, hemorrhagic CVA, who presents to the ED with shortness of breath, for 2 weeks. Patients aunt is at bedside and reports that she has not taken her Lasix in over 2 weeks because she does not like to void more. Pt's and aunt report she has been taking the eliquis as she has been forcing her to take it. Denies any chest pain or palpitations. Denies any weakness, dizziness, or changes in strength or sensation. No recent travel or immobility. The patient denies any fevers, chills, coughing, nausea, vomiting, diarrhea, or abdominal pain. Allergies: Amoxicillin trihydrate, potassium clavulanate. Surgical History: Tricuspid repair, Mitral valve replacement, Cholecystectomy, LT hip sx. PCP: Dr. Dennis - Physicial Exam PE: 10/09/18 11:48 GENERAL: Awake, alert, and fully oriented. In moderate resp distress EYES: PERRLA, EOMI, sclera anicteric, conjunctiva clear ENT: Nares patent, oropharynx clear without exudates. Moist mucosa. NECK: Normal ROM, supple, no lymphadenopathy, or masses LUNGS: (+)Diminished breath sounds at the bases, expiratory wheezing bilaterally. +moderate WOB HEART: Regular rate and rhythm, normal S1 and S2, no murmurs, rubs or gallops ABDOMEN: Soft, nontender, normoactive bowel sounds. No guarding, no rebound. No masses EXTREMITIES: Normal range of motion, 2+ pitting edema to knees b/l. No ttp to UE or LEs BACK: No midline spinal tenderness in cervical/thoracic/lumbar region NEUROLOGICAL: Normal speech, cranial nerves intact, equal strength and sensation b/l SKIN: Warm, Dry, normal turgor, no rashes or lesions noted. - Medical Decision Making 10/09/18 12:29 62yo F hx MMP including CHF, PE on eliquis, sarcoidosis, poorly compliant with lasix prseents to the ED with progressive SOB for weeks Due to increased WOB and resp distress, pt placed on bipap for positive pressure support Most likely CHF exacerbation due to lasix non adherance, but ddx includes PE vs PNA vs sarcoidosis Unlikely PE as pt and her aunt report she is taking the eliquis Unlikely PNA in absence of fevers (rectal temp here 99), coughing, significant white count Initial ABG with no sign of respiratory failure, but will continue to monitor CXR with congestive changes, no focal infiltrates Plan for labs, monitor, admit Heart Score/ECG Review #1 10/09/18 12:28 Twelve-lead EKG was performed and reviewed by me. AV dual paced rhythm with multiple PVCs. Rate 87. Wavy baseline but no obvious ST elevations.
[2018-10-09 12:38] LABS: ALBUMIN 4.1 g/dl (3.4-5.0); BILIRUBIN,TOTAL 0.6 mg/dL (0.2-1); CALCIUM 9.2 mg/dL (8.5-10.1); POTASSIUM 3.3 mmol/L (3.5-5.1); TOT PROT 7.1 g/dl (6.4-8.2)
[2018-10-09 12:40] LABS: MAGNESIUM 2.1 mg/dL (1.8-2.4)
[2018-10-09 13:23] LABS: N-TERMINAL BNP 10686.9 pg/ml (5-125)
--- NOTE | 2018-10-09 13:25 | HP ---
Admitting History and Physical - Primary Care Physician PCP: Darryl Dennis - Admission History of Present Illness: 62 year old female with PMHx of NYHA III systolic CHF, sarcoidosis, HTN, HLD presents to the ed with 2 days of difficulty breathing with wheezing. According to her friend who takes care of her she refuses to take her lasix x 2 weeks and lives in a very hot apartment without any air conditioning. She been taking her other medications including take her Eliquis. According to friend, she's been eating less and less & stopped her lasix bc she left it made her nauseous She denies fever, chills chest pain, abdominal pain. Recently found to have blood in her urine according to friend 1 week ago in PCP office Patient is a poor historian. 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) Cardiovascular: Yes: CHF, HTN Pulmonary: Yes: COPD, Other (Sarcoid) Gastrointestinal: Yes: GERD - Past Surgical History Past Surgical History: Yes: Cholecystectomy, Permanent Pacemaker, Valve Replacement (MVR, TV repair) Additional Past Surgical History: L hip surgery - Smoking History Smoking history: Former smoker Have you smoked in the past 12 months: No Aproximately how many cigarettes per day: 0 If you are a former smoker, when did you quit?: 36 YRS AGO - Alcohol/Substance Use Hx Alcohol Use: No - Social History 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[employer]) History of Recent Travel: No Home Medications - Allergies Allergies/Adverse Reactions: Allergies Allergy/AdvReac Type Severity Reaction Status Date / Time amoxicillin trihydrate AdvReac Severe Verified 09/09/18 07:02 [From Augmentin] potassium clavulanate AdvReac Severe Verified 09/09/18 07:02 [From Augmentin] - Home Medications Home Medications: Ambulatory Orders Tolterodine Tartrate 2 mg PO DAILY 02/15/15 Cholecalciferol (Vitamin D3) [Vitamin D3] 5,000 unit PO DAILY 03/08/15 Atorvastatin Ca [Lipitor] 20 mg PO HS 06/04/16 Carvedilol 6.25 mg PO BID 06/04/16 Omeprazole 20 mg PO BID 06/04/16 Ramipril 2.5 mg PO DAILY 06/04/16 Furosemide [Lasix] 20 mg PO DAILY 06/07/18 Albuterol 0.083% Nebulizer Sheeba [Ventolin 0.083% Nebulizer Soln -] 1 amp NEB PRN PRN 09/05/18 Albuterol Sulfate [Proair Hfa] 1 - 2 inh IH PRN 09/05/18 Apixaban [Eliquis] 10 mg PO BID #70 tablet 09/15/18 Prednisone 10 mg PO DAILY #30 tablet 09/16/18 Acetaminophen [Tylenol .Regular Strength -] 650 mg PO Q6H PRN tablet 09/23/18 Apixaban [Eliquis -] 5 mg PO BID tablet 09/23/18 Bethanechol Chloride [Bethanechol Chloride -] 5 mg PO TID tablet 09/23/18 Cephalexin [Keflex] 500 mg PO ONCE #1 capsule 09/23/18 Lactobacillus Acidophilus [Acidophilus Lactobacilli] 1 each PO DAILY #7 capsule 09/23/18 Family Disease History - Family Disease History Family Disease History: Other: Mother ("Blood Cancer-Needed Transfusions") Review of Systems - Review of Systems Constitutional: reports: Lethargy, Loss of Appetite, Weakness Eyes: reports: No Symptoms HENT: reports: No Symptoms Neck: reports: No Symptoms Cardiovascular: reports: Palpitations, Shortness of Breath Respiratory: reports: Cough, Exercise Intolerance, SOB, SOB on Exertion, Wheezing Gastrointestinal: reports: Abdominal Pain (pelvic pain) Genitourinary: reports: No Symptoms Breasts: reports: No Symptoms Reported Integumentary: reports: No Symptoms Neurological: reports: No Symptoms Endocrine: reports: No Symptoms Hematology/Lymphatic: reports: No Symptoms Psychiatric: reports: Altered Sleep Pattern Physical Examination Vital Signs: Vital Signs Temperature 99 F 10/09/18 11:00 Pulse Rate 82 10/09/18 11:00 Respiratory Rate 22 H 10/09/18 11:00 Blood Pressure 143/73 10/09/18 11:00 O2 Sat by Pulse Oximetry (%) 100 10/09/18 11:00 Constitutional: Yes: Moderate Distress, Severe Distress (on BiPap) Eyes: Yes: WNL, Conjunctiva Clear, EOM Intact HENT: Yes: WNL, Atraumatic, Normocephalic Neck: Yes: WNL, Supple, Trachea Midline Cardiovascular: Yes: Regular Rate and Rhythm, Tachycardia, Other (PPM left under chest wall) Respiratory: Yes: Cough, On BiPap, Poor Air Entry, Rhonchi (scattered), SOB on Exertion, Tachypnea Gastrointestinal: Yes: Normal Bowel Sounds, Abdomen, Obese, Tenderness (to pelvic area) ...Rectal Exam: Yes: Deferred Renal/: Yes: Bladder Distention, Incontinence Breast(s): Yes: WNL Musculoskeletal: Yes: WNL Extremities: Yes: WNL Edema: Yes Edema: LLE: 2+, RLE: 2+ Peripheral Pulses WNL: Yes Integumentary: Yes: WNL Neurological: Yes: WNL, Alert, Oriented ...Motor Strength: LLE, RLE (generalized weakness) Psychiatric: Yes: WNL, Alert, Oriented Labs: CBC, BMP 10/09/18 11:48 10/09/18 11:48 Imaging - Results Chest X-ray: Report Reviewed, Image Reviewed ( weaker inspiration with apical lordotic projection, large heart, sternal sutures, multilead pacemaker and congestive changes. There may be some atelectasis at the bases.) Cat Scan: Pending EKG: Report Reviewed (AV dual paced rhythm with multiple PVCs), Image Reviewed Problem List - Problems (1) HTN (hypertension) Assessment/Plan: normotensive presently c/w ramapril Code(s): I10 - ESSENTIAL (PRIMARY) HYPERTENSION (2) GERD (gastroesophageal reflux disease) Assessment/Plan: c/w PPI Code(s): K21.9 - GASTRO-ESOPHAGEAL REFLUX DISEASE WITHOUT ESOPHAGITIS (3) Pacemaker Assessment/Plan: AV dual paced rhythm with multiple PVCs Code(s): Z95.0 - PRESENCE OF CARDIAC PACEMAKER (4) Prophylactic measure Assessment/Plan: FEN on IVF needed monitor electrolytes NPO while on BiPap DVT c/w eliquis Dispo admit to tele floor full code discharge planning Code(s): Z29.9 - ENCOUNTER FOR PROPHYLACTIC MEASURES, UNSPECIFIED (5) Acute on chronic diastolic (congestive) heart failure Assessment/Plan: non-compliant with diuretic therapy lasix IV 40mg does in ED c/w lasix 40mg IV q 12H trend BNP >10K cardiology consultation requested for am Code(s): I50.33 - ACUTE ON CHRONIC DIASTOLIC (CONGESTIVE) HEART FAILURE (6) Hyperlipidemia Assessment/Plan: c/w atorvastatin Code(s): E78.5 - HYPERLIPIDEMIA, UNSPECIFIED Qualifiers: Hyperlipidemia type: pure hypercholesterolemia Qualified Code(s): E78.00 - Pure hypercholesterolemia, unspecified; E78.0 - Pure hypercholesterolemia (8) Sarcoidosis Assessment/Plan: c/w home dose prednisone Code(s): D86.9 - SARCOIDOSIS, UNSPECIFIED (9) Status post tricuspid valve repair Code(s): Z98.890 - OTHER SPECIFIED POSTPROCEDURAL STATES (10) Pulmonary embolism Assessment/Plan: recent BL PE on eliquis repeat CTA-questionable compliance and possibility of recurrent PE even on Eliquis however unlikely Code(s): I26.99 - OTHER PULMONARY EMBOLISM WITHOUT ACUTE COR PULMONALE (11) Respiratory failure with hypoxia Code(s): J96.91 - RESPIRATORY FAILURE, UNSPECIFIED WITH HYPOXIA (12) Respiratory failure Assessment/Plan: O2 sats 84% on arrival to ED c/w BiPap weaning as tolerated to maintain O2 >90% Code(s): J96.90 - RESPIRATORY FAILURE, UNSP, UNSP W HYPOXIA OR HYPERCAPNIA Visit type - Emergency Visit Emergency Visit: Yes ED Registration Date: 10/09/18 Care time: The patient presented to the Emergency Department on the above date and was hospitalized for further evaluation of their emergent condition. - New Patient This patient is new to me today: Yes Date on this admission: 10/09/18 - Critical Care Critical Care patient: No
[2018-10-09] MEDS ORDERED: ACETAMINOPHEN 1000 MG/100 ML VIAL (NON FORMULARY) IVPB ONE (15:33)
[2018-10-09] MEDS ORDERED: POTASSIUM CHLORIDE TABS 20 MEQ TABLET.ER (FP) PO ONE ×2 (17:45→19:53)
[2018-10-09] MEDS ORDERED: ACETAMINOPHEN 325 MG TABLET (FP) PO PRN (17:46)
[2018-10-09] MEDS: FUROSEMIDE 40 MG/4 ML INJECTABLE VIAL IVPUSH SCH (19:52)
[2018-10-09 21:03] LABS: EPI CELLS 6.1 /HPF (0-5/HPF); HYALINE CASTS 33 /lpf (0-8); PH,URINE 5.5 (5.0-8.0); URINE APPEARANCE CLEAR; URINE BILIRUBIN NEGATIVE (NEGATIVE); URINE COLOR YELLOW; URINE GLUCOSE (UA) NEGATIVE (NEGATIVE); URINE KETONE 1+ (NEGATIVE); URINE LEUK ESTERASE NEGATIVE (NEGATIVE); URINE NITRITE NEGATIVE (NEGATIVE); URINE PROTEIN 1+ (NEGATIVE); URINE UROBILINOGEN 0.2 mg/dL (0.2-1.0)
[2018-10-09 21:51] LABS: URINE BACTERIA 15.9 /hpf (NEGATIVE)
[2018-10-09] MEDS ORDERED: APIXABAN 5 MG TABLET PO SCH ×2 (22:00)
[2018-10-09] MEDS ORDERED: HEPARIN NA (PORCINE) 5,000 UNITS/ML 1ML VIAL SQ SCH (22:00)
[2018-10-09] MEDS: PANTOPRAZOLE 20 MG TABLET (FP) PO SCH (23:03)
[2018-10-09] MEDS: ATORVASTATIN CA 20 MG TABLET (FP) PO SCH (23:03)
[2018-10-09] MEDS: CARVEDILOL 3.125 MG TABLET (FP) PO SCH (23:04)
[2018-10-09] MEDS: methylPREDNISolone NA SUCC 40 MG/1 ML VIAL IVPUSH SCH (23:06)
[2018-10-10] MEDS: methylPREDNISolone NA SUCC 40 MG/1 ML VIAL IVPUSH SCH ×2 (03:36→09:56)
[2018-10-10 04:44] LABS: ARTERIAL BLOOD GAS PCO2 34.5 mmHg (35-45); ARTERIAL BLOOD GAS PO2 93.9 mmHg (80-105); ARTERIAL BLOOD GAS pH 7.41 (7.35-7.45)
[2018-10-10 04:46] LABS: ALLENS TEST POSITIVE
--- NOTE | 2018-10-10 05:14 | HOSP ---
Subjective - Review of Symptoms Events since last encounter: Hospitalist Encounter Notified by the RN that the patient is having difficulty breathing. Patient is currently on Bipap Arrived to bedside, patient is minimally responsive to name, labored breathing, diaphoretic, diffuse rhonchi, diminished to bases with abdominal accessory use. Call placed to , ICU resident for transfer to ICU and probable intubation Discussed with patient's daughter via telephone patient's current condition and her Code Status- Full Discussed case with Dr. Cerna, who recommends ACS protocol awaiting CBC, CMP, Troponin I, will add on CK and CK MB Patient transported to ICU, with Dr. Good and RNs Stool Occult obtained and sent to lab Repeat vitals done in ICU, T 107.8 (rectal), P 80, R 40, BP 99/59, Spo2 94% (on Bipap) ASSESSMENT: This is a 62 y/o woman with a PMHx of: HTN, HLD, Systolic CHF(LVEF < 40%), Afib , MVR (TV repair), s/p ICD, Bilateral PEs (on Eliquis), Sarcoidosis. Admitted to Telemetry for Acute on Chronic CHF, Respiratory Failure with Hypoxia. Plan: Stat EKG Stat Chest Xray Stat Lactic Acid, CBC, BMP, Troponin I Lasix IV BGM Atkins Culture-stat Calador IV stat Ofirmev IV stat Pulmonary: Yes: Dyspnea Physical Examination Vital Signs: Vital Signs Temperature 98.1 F 10/10/18 03:00 Pulse Rate 87 10/10/18 03:00 Respiratory Rate 40 H 10/10/18 03:00 Blood Pressure 112/62 10/10/18 03:00 O2 Sat by Pulse Oximetry (%) 95 10/09/18 22:00 Constitutional: Yes: Diaphoresis, Severe Distress, Obese, Other (Lethargic) Eyes: Yes: Conjunctiva Clear HENT: Yes: Atraumatic, Normocephalic Neck: Yes: WNL, Supple, Trachea Midline Cardiovascular: Yes: Pulse Irregular, S1, S2 Respiratory: Yes: Accessory Muscle Use, Diminished, On BiPap, Poor Air Entry, Rhonchi, SOB, Tachypnea Edema: Yes Edema: LLE: 2+, RLE: 2+ Peripheral Pulses WNL: Yes Neurological: Yes: Lethargy Labs: CBC, BMP 10/09/18 11:48 10/09/18 11:48 Laboratory Results - last 24 hr 10/09/18 10/09/18 10/09/18 11:41 11:48 11:48 WBC RBC Hgb Hct MCV MCH MCHC RDW Plt Count MPV Absolute Neuts (auto) Neutrophils % Lymphocytes % Monocytes % Eosinophils % Basophils % Nucleated RBC % Anticoagulation Therapy No Result Required. Puncture Site Right radial ABG pH 7.34 L ABG pCO2 at Pt Temp 36.4 ABG pO2 at Pt Temp 160 H ABG HCO3 19.0 L ABG O2 Sat (Measured) 99.1 H ABG O2 Content 15.2 ABG Base Excess -5.7 L Moody Test Positive Carboxyhemoglobin 0.9 Methemoglobin 0.2 O2 Delivery Device No Result Required. Oxygen Flow Rate 50 Vent Mode No Result Required. Vent Rate No Result Required. Mechanical Rate No Result Required. Pressure Support Vent No Result Required. Sodium Potassium Chloride Carbon Dioxide Anion Gap BUN Creatinine Est GFR (CKD-EPI)AfAm Est GFR (CKD-EPI)NonAf POC Glucometer Random Glucose Lactic Acid 3.7 H* Calcium Magnesium 2.1 Total Bilirubin AST ALT Alkaline Phosphatase Troponin I 0.12 H B-Natriuretic Peptide Total Protein Albumin Urine Color Urine Appearance Urine pH Ur Specific Keystone Urine Protein Urine Glucose (UA) Urine Ketones Urine Blood Urine Nitrite Urine Bilirubin Urine Urobilinogen Ur Leukocyte Esterase Urine Casts (Auto) U Epithel Cells (Auto) Urine Bacteria (Auto) 10/09/18 10/09/18 10/09/18 11:48 11:48 19:00 WBC 10.3 H RBC 4.25 Hgb 11.5 Hct 36.6 D MCV 86.1 MCH 27.1 MCHC 31.4 L RDW 18.9 H Plt Count 199 D MPV 8.5 Absolute Neuts (auto) 9.0 H Neutrophils % 87.3 H Lymphocytes % 7.3 L D Monocytes % 4.6 Eosinophils % 0.0 D Basophils % 0.8 Nucleated RBC % 0 Anticoagulation Therapy Puncture Site ABG pH ABG pCO2 at Pt Temp ABG pO2 at Pt Temp ABG HCO3 ABG O2 Sat (Measured) ABG O2 Content ABG Base Excess Moody Test Carboxyhemoglobin Methemoglobin O2 Delivery Device Oxygen Flow Rate Vent Mode Vent Rate Mechanical Rate Pressure Support Vent Sodium 137 Potassium 3.3 L Chloride 103 Carbon Dioxide 23 Anion Gap 11 BUN 12.0 Creatinine 1.0 Est GFR (CKD-EPI)AfAm 70.91 Est GFR (CKD-EPI)NonAf 61.19 POC Glucometer Random Glucose 215 H Lactic Acid Calcium 9.2 Magnesium Total Bilirubin 0.6 AST 15 ALT 17 Alkaline Phosphatase 65 Troponin I B-Natriuretic Peptide 02960.9 H Total Protein 7.1 Albumin 4.1 Urine Color Yellow Urine Appearance Clear Urine pH 5.5 D Ur Specific Keystone 1.018 Urine Protein 1+ H Urine Glucose (UA) Negative Urine Ketones 1+ H Urine Blood 3+ H Urine Nitrite Negative Urine Bilirubin Negative Urine Urobilinogen 0.2 Ur Leukocyte Esterase Negative Urine Casts (Auto) 33 U Epithel Cells (Auto) 6.1 Urine Bacteria (Auto) 15.9 10/09/18 10/09/18 10/10/18 19:25 19:25 04:35 WBC RBC Hgb Hct MCV MCH MCHC RDW Plt Count MPV Absolute Neuts (auto) Neutrophils % Lymphocytes % Monocytes % Eosinophils % Basophils % Nucleated RBC % Anticoagulation Therapy Puncture Site ABG pH ABG pCO2 at Pt Temp ABG pO2 at Pt Temp ABG HCO3 ABG O2 Sat (Measured) ABG O2 Content ABG Base Excess Moody Test Carboxyhemoglobin Methemoglobin O2 Delivery Device Oxygen Flow Rate Vent Mode Vent Rate Mechanical Rate Pressure Support Vent Sodium Potassium Chloride Carbon Dioxide Anion Gap BUN Creatinine Est GFR (CKD-EPI)AfAm Est GFR (CKD-EPI)NonAf POC Glucometer 181 Random Glucose Lactic Acid Calcium Magnesium Total Bilirubin AST ALT Alkaline Phosphatase Troponin I 0.54 H B-Natriuretic Peptide 06361.2 H Total Protein Albumin Urine Color Urine Appearance Urine pH Ur Specific [place] Urine Protein Urine Glucose (UA) Urine Ketones Urine Blood Urine Nitrite Urine Bilirubin Urine Urobilinogen Ur Leukocyte Esterase Urine Casts (Auto) U Epithel Cells (Auto) Urine Bacteria (Auto) 10/10/18 04:36 WBC RBC Hgb Hct MCV MCH MCHC RDW Plt Count MPV Absolute Neuts (auto) Neutrophils % Lymphocytes % Monocytes % Eosinophils % Basophils % Nucleated RBC % Anticoagulation Therapy Puncture Site Right radial ABG pH 7.41 ABG pCO2 at Pt Temp 34.5 L ABG pO2 at Pt Temp 93.9 ABG HCO3 21.6 L ABG O2 Sat (Measured) 97.0 ABG O2 Content 14.8 L ABG Base Excess -2.0 Moody Test Positive Carboxyhemoglobin Methemoglobin O2 Delivery Device Bipap Oxygen Flow Rate Yes Vent Mode S/t Vent Rate 18 Mechanical Rate Pressure Support Vent 12/5 Sodium Potassium Chloride Carbon Dioxide Anion Gap BUN Creatinine Est GFR (CKD-EPI)AfAm Est GFR (CKD-EPI)NonAf POC Glucometer Random Glucose Lactic Acid Calcium Magnesium Total Bilirubin AST ALT Alkaline Phosphatase Troponin I B-Natriuretic Peptide Total Protein Albumin Urine Color Urine Appearance Urine pH Ur Specific [place] Urine Protein Urine Glucose (UA) Urine Ketones Urine Blood Urine Nitrite Urine Bilirubin Urine Urobilinogen Ur Leukocyte Esterase Urine Casts (Auto) U Epithel Cells (Auto) Urine Bacteria (Auto) Current Medications Generic Name Dose Route Start Last Admin Trade Name Freq PRN Reason Stop Dose Admin Acetaminophen 650 mg 10/09/18 17:46 Tylenol - PO Q6H PRN Fever Or Pain Apixaban 5 mg 10/09/18 22:00 10/09/18 23:04 Eliquis - PO 5 mg BID CHANG Administration Atorvastatin Calcium 20 mg 10/09/18 22:00 10/09/18 23:03 Lipitor - PO 20 mg HS CHANG Administration Carvedilol 6.25 mg 10/09/18 22:00 10/09/18 23:04 Coreg - PO 6.25 mg BID CHANG Administration Cholecalciferol 5,000 unit 10/10/18 10:00 Vitamin D3 - PO DAILY [facility] Furosemide 40 mg 10/09/18 18:00 10/10/18 05:15 Lasix Injection - IVPUSH 40 mg BID@0600,1400 CHANG Administration Lactobacillus Acidophilus 1 tab 10/10/18 10:00 Bacid - PO DAILY [facility] Methylprednisolone Sodium Succinate 40 mg 10/09/18 21:00 10/10/18 03:36 Solu-Medrol - IVPUSH 40 mg Q6H-IV CHANG Administration Pantoprazole Sodium 20 mg 10/09/18 22:00 10/09/18 23:03 Protonix - PO 20 mg BID CHANG Administration Ramipril 2.5 mg 10/10/18 10:00 Altace - PO DAILY [facility] Tolterodine Tartrate 2 mg 10/10/18 10:00 Detrol - PO DAILY [facility] Hospitalist Encounter Outcome: Patient in ICU- Severe Sepsis, Septic Shock, ACS Lactate now 3.5 from 3.7 WBC 11.6 Trop 1.16 CK, CK MB- nl EKG- Paced rhythm no change from prior study Patient started on [employer] Spectrum ABX Consult placed for ID Awaiting Stool Occult Will sign out to Day Team to follow Critical Care Total Critical Care Time (in minutes): 120 Critical Care Statement: The care of this patient involved high complexity decision making to prevent further life threatening deterioration of the patient 's condition and/or to evaluate & treat vital organ system(s) failure or risk of failure.
[2018-10-10] MEDS: FUROSEMIDE 40 MG/4 ML INJECTABLE VIAL IVPUSH SCH ×2 (05:15→13:45)
--- NOTE | 2018-10-10 05:46 | CONSULT ---
Consultation: REQUESTING PROVIDER: ELIF Ramírez CONSULT REQUEST: We have been asked to medically evaluate this patient for acute respiratory failure. HISTORY OF PRESENT ILLNESS: Patient is a 62 year old female with history of recently diagnosed bilateral pulmonary embolism (documented not compliant with Eliquis), CHF, sarcoidosis, hypertension, past Afib presented with complaint of shortness of breath. Reportedly not compliant with her home Lasix. Per nursing staff, patient was communicative, speaking on the telephone earlier this eveneing. She was placed on her BiLevel for shortness of breath, and noted to be tachypnic, with increased work of breathing. Upon my encounter, patient in respiratory distress on BiLevel ventilation, tachypnic to the 40s, HR in 80s, using accessory muscles of respiration. She is not responsive to questions or commands. Hyperthermic to 107.5F via rectal probe. ABG pH 7.41 CO2 34.5 PaO2 93.9 HCO3 21.6. ELIF Ramírez, and myself discussed with daughter over the phone, who confirms patient is full code. REVIEW OF SYSTEMS: As per HPI. Unable to assess further due to clinical condition. PHYSICAL EXAMINATION Vital Signs - 24 hr 10/09/18 10/09/18 10/09/18 11:00 12:30 15:00 Temperature 99 F 103.4 F H Pulse Rate 82 Pulse Rate [ Right Radial] Respiratory 22 H Rate Blood Pressure 143/73 Blood Pressure [Left Arm] Blood Pressure [Right Arm] O2 Sat by Pulse 85 L 100 Oximetry (%) 10/09/18 10/09/18 10/09/18 15:28 15:35 18:00 Temperature Pulse Rate Pulse Rate [ 78 Right Radial] Respiratory Rate Blood Pressure Blood Pressure [Left Arm] Blood Pressure 128/72 [Right Arm] O2 Sat by Pulse 100 100 100 Oximetry (%) 10/09/18 10/09/18 10/09/18 19:22 19:30 22:00 Temperature 98.1 F Pulse Rate 60 Pulse Rate [ 81 82 Right Radial] Respiratory 30 H 27 H 22 H Rate Blood Pressure 111/40 L Blood Pressure 123/59 L [Left Arm] Blood Pressure 107/59 L [Right Arm] O2 Sat by Pulse 100 100 95 Oximetry (%) 10/10/18 10/10/18 01:57 03:00 Temperature 98.3 F 98.1 F Pulse Rate 114 H 87 Pulse Rate [ Right Radial] Respiratory 20 40 H Rate Blood Pressure 148/64 112/62 Blood Pressure [Left Arm] Blood Pressure [Right Arm] O2 Sat by Pulse Oximetry (%) GENERAL: Awake, minimally responsive. On BiLevel ventilation. In acute distress. HEENT: NC/AT. PERRL, sclera anicteric. Dry mucous membranes. LUNGS: Poor air entry with scattered rhonchi bilaterally. Patient using accessory muscle use. HEART: Regular rate and rhythm, normal S1 and S2. ABDOMEN: Soft, distended, tympanic to percussion x4 quadrants. Hypoactive bowel soudns x4 quadrants. No rebound tenderness ellicited. EXTREMITIES: 1+radial, dorsalis pedis pulses bilaterally, warm. 2+ edema bilateral lower extremities. NEUROLOGICAL: Patient is awake, however not responsive to voice, physical commands. Laboratory Results - last 24 hr 10/09/18 10/09/18 10/09/18 11:41 11:48 11:48 WBC RBC Hgb Hct MCV MCH MCHC RDW Plt Count MPV Absolute Neuts (auto) Neutrophils % Lymphocytes % Monocytes % Eosinophils % Basophils % Nucleated RBC % Anticoagulation Therapy No Result Required. Puncture Site Right radial ABG pH 7.34 L ABG pCO2 at Pt Temp 36.4 ABG pO2 at Pt Temp 160 H ABG HCO3 19.0 L ABG O2 Sat (Measured) 99.1 H ABG O2 Content 15.2 ABG Base Excess -5.7 L Moody Test Positive Carboxyhemoglobin 0.9 Methemoglobin 0.2 O2 Delivery Device No Result Required. Oxygen Flow Rate 50 Vent Mode No Result Required. Vent Rate No Result Required. Mechanical Rate No Result Required. Pressure Support Vent No Result Required. Sodium Potassium Chloride Carbon Dioxide Anion Gap BUN Creatinine Est GFR (CKD-EPI)AfAm Est GFR (CKD-EPI)NonAf POC Glucometer Random Glucose Lactic Acid 3.7 H* Calcium Magnesium 2.1 Total Bilirubin AST ALT Alkaline Phosphatase Troponin I 0.12 H B-Natriuretic Peptide Total Protein Albumin Urine Color Urine Appearance Urine pH Ur Specific [place] Urine Protein Urine Glucose (UA) Urine Ketones Urine Blood Urine Nitrite Urine Bilirubin Urine Urobilinogen Ur Leukocyte Esterase Urine Casts (Auto) U Epithel Cells (Auto) Urine Bacteria (Auto) 10/09/18 10/09/18 10/09/18 11:48 11:48 19:00 WBC 10.3 H RBC 4.25 Hgb 11.5 Hct 36.6 D MCV 86.1 MCH 27.1 MCHC 31.4 L RDW 18.9 H Plt Count 199 D MPV 8.5 Absolute Neuts (auto) 9.0 H Neutrophils % 87.3 H Lymphocytes % 7.3 L D Monocytes % 4.6 Eosinophils % 0.0 D Basophils % 0.8 Nucleated RBC % 0 Anticoagulation Therapy Puncture Site ABG pH ABG pCO2 at Pt Temp ABG pO2 at Pt Temp ABG HCO3 ABG O2 Sat (Measured) ABG O2 Content ABG Base Excess Moody Test Carboxyhemoglobin Methemoglobin O2 Delivery Device Oxygen Flow Rate Vent Mode Vent Rate Mechanical Rate Pressure Support Vent Sodium 137 Potassium 3.3 L Chloride 103 Carbon Dioxide 23 Anion Gap 11 BUN 12.0 Creatinine 1.0 Est GFR (CKD-EPI)AfAm 70.91 Est GFR (CKD-EPI)NonAf 61.19 POC Glucometer Random Glucose 215 H Lactic Acid Calcium 9.2 Magnesium Total Bilirubin 0.6 AST 15 ALT 17 Alkaline Phosphatase 65 Troponin I B-Natriuretic Peptide 79639.9 H Total Protein 7.1 Albumin 4.1 Urine Color Yellow Urine Appearance Clear Urine pH 5.5 D Ur Specific [place] 1.018 Urine Protein 1+ H Urine Glucose (UA) Negative Urine Ketones 1+ H Urine Blood 3+ H Urine Nitrite Negative Urine Bilirubin Negative Urine Urobilinogen 0.2 Ur Leukocyte Esterase Negative Urine Casts (Auto) 33 U Epithel Cells (Auto) 6.1 Urine Bacteria (Auto) 15.9 10/09/18 10/09/18 10/10/18 19:25 19:25 04:35 WBC RBC Hgb Hct MCV MCH MCHC RDW Plt Count MPV Absolute Neuts (auto) Neutrophils % Lymphocytes % Monocytes % Eosinophils % Basophils % Nucleated RBC % Anticoagulation Therapy Puncture Site ABG pH ABG pCO2 at Pt Temp ABG pO2 at Pt Temp ABG HCO3 ABG O2 Sat (Measured) ABG O2 Content ABG Base Excess Moody Test Carboxyhemoglobin Methemoglobin O2 Delivery Device Oxygen Flow Rate Vent Mode Vent Rate Mechanical Rate Pressure Support Vent Sodium Potassium Chloride Carbon Dioxide Anion Gap BUN Creatinine Est GFR (CKD-EPI)AfAm Est GFR (CKD-EPI)NonAf POC Glucometer 181 Random Glucose Lactic Acid Calcium Magnesium Total Bilirubin AST ALT Alkaline Phosphatase Troponin I 0.54 H B-Natriuretic Peptide 81271.2 H Total Protein Albumin Urine Color Urine Appearance Urine pH Ur Specific [place] Urine Protein Urine Glucose (UA) Urine Ketones Urine Blood Urine Nitrite Urine Bilirubin Urine Urobilinogen Ur Leukocyte Esterase Urine Casts (Auto) U Epithel Cells (Auto) Urine Bacteria (Auto) 10/10/18 04:36 WBC RBC Hgb Hct MCV MCH MCHC RDW Plt Count MPV Absolute Neuts (auto) Neutrophils % Lymphocytes % Monocytes % Eosinophils % Basophils % Nucleated RBC % Anticoagulation Therapy Puncture Site Right radial ABG pH 7.41 ABG pCO2 at Pt Temp 34.5 L ABG pO2 at Pt Temp 93.9 ABG HCO3 21.6 L ABG O2 Sat (Measured) 97.0 ABG O2 Content 14.8 L ABG Base Excess -2.0 Moody Test Positive Carboxyhemoglobin Methemoglobin O2 Delivery Device Bipap Oxygen Flow Rate Yes Vent Mode S/t Vent Rate 18 Mechanical Rate Pressure Support Vent 12/5 Sodium Potassium Chloride Carbon Dioxide Anion Gap BUN Creatinine Est GFR (CKD-EPI)AfAm Est GFR (CKD-EPI)NonAf POC Glucometer Random Glucose Lactic Acid Calcium Magnesium Total Bilirubin AST ALT Alkaline Phosphatase Troponin I B-Natriuretic Peptide Total Protein Albumin Urine Color Urine Appearance Urine pH Ur Specific [place] Urine Protein Urine Glucose (UA) Urine Ketones Urine Blood Urine Nitrite Urine Bilirubin Urine Urobilinogen Ur Leukocyte Esterase Urine Casts (Auto) U Epithel Cells (Auto) Urine Bacteria (Auto) Active Medications Generic Name Dose Route Start Last Admin Trade Name Freq PRN Reason Stop Dose Admin Acetaminophen 650 mg 10/09/18 17:46 Tylenol - PO Q6H PRN Fever Or Pain Apixaban 5 mg 10/09/18 22:00 10/09/18 23:04 Eliquis - PO 5 mg BID CHANG Administration Atorvastatin Calcium 20 mg 10/09/18 22:00 10/09/18 23:03 Lipitor - PO 20 mg HS CHANG Administration Carvedilol 6.25 mg 10/09/18 22:00 10/09/18 23:04 Coreg - PO 6.25 mg BID CHANG Administration Cholecalciferol 5,000 unit 10/10/18 10:00 Vitamin D3 - PO DAILY CHANG Furosemide 40 mg 10/09/18 18:00 10/10/18 05:15 Lasix Injection - IVPUSH 40 mg BID@0600,1400 CHANG Administration Lactobacillus Acidophilus 1 tab 10/10/18 10:00 Bacid - PO DAILY CHANG Methylprednisolone Sodium Succinate 40 mg 10/09/18 21:00 10/10/18 03:36 Solu-Medrol - IVPUSH 40 mg Q6H-IV CHANG Administration Pantoprazole Sodium 20 mg 10/09/18 22:00 10/09/18 23:03 Protonix - PO 20 mg BID CHANG Administration Ramipril 2.5 mg 10/10/18 10:00 Altace - PO DAILY CHANG Tolterodine Tartrate 2 mg 10/10/18 10:00 Detrol - PO DAILY CHANG ASSESSMENT/PLAN: Septic shock vs. cardiogenic shock secondary to ACS vs. obstructive shock given history of pulmonary embolism Hyperpyrexia Acute respiratory distress History of bilateral pulmonary embolism History of cerebral hemorrhage History of pulmonary sarcoidosis History of Afib AICD with complete heart block Neurologic History of cerebral hemorrhage Acute metabolic encephalopathy -Likely secondary to septic shock vs. cardiogenic shock secondary to ACS vs obstructive shock given history of pulmonary embolism with anticoagulation non- compliance. -Hyperpyrexia -patient placed on cooling blanket, monitor rectal temperature -Head CT once stable Pulmonary Acute respiratory distress -Increased work of breathing. Patient assessed with anesthesiology regarding possible intubation -Patient not responsive to Lasix IV push- minimal urine output in hernandez catheter -History of pulmonary embolism- however documented not compliant with home Eliquis. -Started on therapeutic dose Lovenox for anticoagulation -CTA chest once stable to evaluate for pulmonary embolism Cardiovascular AICD with complete heart block Troponinemia concerning for ACS -Troponin 0.12 -> 0.54 -> 1.16 -STAT repeat ECG shows AV dual paced rhythm -Cardiology recommendations (Dr. Cerna) appreciated. -Currently holding home antihypertensives as patient is in shock. -Central venous catheter placed; initiated on Norepinepherine as MAPs dropping Gastrointestinal -NPO while on BiLevel ventilation, lethargic -Protonix 40mg IV BID prophylaxis Infectious disease R/O Septic shock; uncertain source -Blood cultures, urine cultures -Lactic acid peaked at 3.7 -ID consult (Dr. Mehta) -Vancomycin, Meropenem Disposition: We will continue to follow the patient. Thank you for this consultative opportunity. Visit type - Emergency Visit Emergency Visit: Yes ED Registration Date: 10/09/18 Care time: The patient presented to the Emergency Department on the above date and was hospitalized for further evaluation of their emergent condition. - New Patient This patient is new to me today: Yes Date on this admission: 10/10/18 - Critical Care Critical Care patient: Yes Total Critical Care Time (in minutes): 37 Critical Care Statement: The care of this patient involved high complexity decision making to prevent further life threatening deterioration of the patient 's condition and/or to evaluate & treat vital organ system(s) failure or risk of failure. ATTENDING PHYSICIAN STATEMENT I saw and evaluated the patient. I reviewed the resident's note and discussed the case with the resident. I agree with the resident's findings and plan as documented. SUBJECTIVE: OBJECTIVE: ASSESSMENT AND PLAN:
[2018-10-10 06:05] LABS: BASO % 0.2 % (0-2.0); HEMATOCRIT 33.1 % (32.4-45.2); HEMOGLOBIN 10.5 GM/dL (10.7-15.3); LYMPH % 2.3 % (8-40); MCHC 31.7 g/dl (32.0-36.0); MEAN CELL VOLUME 85.1 fl (80-96); MONO % 1.4 % (3.8-10.2); NEUT % 96.1 % (42.8-82.8); PLATELET COUNT 160 K/MM3 (134-434); RBC 3.89 M/mm3 (3.60-5.2); RDW 18.7 % (11.6-15.6); WHITE BLOOD COUNT 11.6 K/mm3 (4.0-10.0)
[2018-10-10] MEDS ORDERED: FUROSEMIDE 40 MG/4 ML INJECTABLE VIAL IVPUSH ONE (06:06)
[2018-10-10] MEDS ORDERED: ACETAMINOPHEN 1000 MG/100 ML VIAL (NON FORMULARY) IVPB ONE ×2 (06:23→06:35)
[2018-10-10] MEDS ORDERED: VANCOMYCIN 1 GM in D5W (PRE-DOCKED) 1,000 MG/250 ML IVPB ONE ×2 (06:29→07:06)
[2018-10-10 06:30] LABS: ALBUMIN 3.7 g/dl (3.4-5.0); ALK PHOS 60 U/L (45-117); ANION GAP 11 MMOL/L (8-16); BILIRUBIN,TOTAL 0.9 mg/dL (0.2-1); BLOOD UREA NITROGEN 15.5 mg/dL (7-18); CALCIUM 8.5 mg/dL (8.5-10.1); CHLORIDE 104 mmol/L (98-107); CO2 24 mmol/L (21-32); CREATININE 1.4 mg/dL (0.55-1.3); GLUCOSE,RANDOM 174 mg/dL (74-106); MAGNESIUM 1.9 mg/dL (1.8-2.4); POTASSIUM 3.5 mmol/L (3.5-5.1); SGOT/AST 38 U/L (15-37); SGPT/ALT 22 U/L (13-61); SODIUM 139 mmol/L (136-145); TOT PROT 6.7 g/dl (6.4-8.2)
[2018-10-10] MEDS ORDERED: IBUPROFEN 800 MG/8 ML IJ IVPB ONE (06:36)
[2018-10-10] MEDS ORDERED: NOREPINEPHRINE BITARTRATE 4 MG/4 ML ML IV ONE ×2 (07:29→14:15)
[2018-10-10] MEDS: NOREPINEPHRINE BITARTRATE 8,000 MCG in DEXTROSE 5%-WATER - 492 ML IV SCH (07:45)
--- NOTE | 2018-10-10 09:06 | PROC ---
Central Line Insertion Indication: CVP Monitoring, Vasopressor Risks and Benefits Explained: Yes (to daughter) Consent on Chart: Yes Central Line: Triple Lumen Catheter Anesthesia: 1% Lidocaine Sterile Technique: Yes Ultrasound Guided Assistance: Yes Position: Right Internal Jugular Post Insertion: Yes: Bilateral Breath Sounds, Bilateral Chest Expansion, Chest X-Ray Ordered Sterile Dressing Applied: Yes
[2018-10-10] MEDS ORDERED: MIDAZOLAM HCL 5 MG/1 ML Single Dose Vial ONE (09:13)
[2018-10-10] MEDS ORDERED: PROPOFOL 1,000,000 MCG/100 ML VIAL ONE (09:13)
[2018-10-10] MEDS ORDERED: PROPOFOL 20 ML ONE (09:13)
[2018-10-10] MEDS ORDERED: predniSONE 10 MG TABLET (UD) PO SCH (10:00)
--- NOTE | 2018-10-10 10:04 | PROC ---
Intubation - Intubation Reason for Intubation: Respiratory Failure Time of Intubation: 10:00 Blade used: Glidescope Tube Size (cm): 7.0 Tube position @ lip (cm): 20 Tube position confirmed by: CO2 detector, Chest x-ray Breath Sounds after Intubation: equal Post Intubation Xray: Yes
--- NOTE | 2018-10-10 10:05 | PN ---
Physical Exam: SUBJECTIVE: Patient seen and examined at bedside. Central line placed in the R IJ. She was hypotensive to a MAP of 29 and hyperthermic to a temperature of 107. Cooling blankets were placed and temperature seemed to be improved to 104 and decreasing. Patient is on BIPAP breathing at a rate of 35-40. Patient is awake but not alert or oriented. Overnight events noted. OBJECTIVE: Vital Signs Period Temp Pulse Resp BP Sys/Zayas Pulse Ox Last 24 Hr 98.1 F-107.6 F 60-114 20-44 63-148/34-73 85-100 GENERAL: A&Ox0, moderate distress on bipap EYES: PERRLA, EOMI ENT: Dry mucus membranes NECK: No JVD, R IJ in place with minimal blood oozing from insertion site LUNGS: Rhonchorus breath sounds, no overt wheezes noted HEART: tachycardic, no murmurs ABDOMEN: Obese, soft, nontender EXTREMITIES: 2+ pulses, 2+ edema noted NEUROLOGICAL: Unable to assess based on mental status Laboratory Results - last 24 hr 10/09/18 10/09/18 10/09/18 11:41 11:48 11:48 WBC RBC Hgb Hct MCV MCH MCHC RDW Plt Count MPV Absolute Neuts (auto) Neutrophils % Lymphocytes % Monocytes % Eosinophils % Basophils % Nucleated RBC % Anticoagulation Therapy No Result Required. Puncture Site Right radial ABG pH 7.34 L ABG pCO2 at Pt Temp 36.4 ABG pO2 at Pt Temp 160 H ABG HCO3 19.0 L ABG O2 Sat (Measured) 99.1 H ABG O2 Content 15.2 ABG Base Excess -5.7 L Moody Test Positive Carboxyhemoglobin 0.9 Methemoglobin 0.2 O2 Delivery Device No Result Required. Oxygen Flow Rate 50 Vent Mode No Result Required. Vent Rate No Result Required. Mechanical Rate No Result Required. Pressure Support Vent No Result Required. Sodium Potassium Chloride Carbon Dioxide Anion Gap BUN Creatinine Est GFR (CKD-EPI)AfAm Est GFR (CKD-EPI)NonAf POC Glucometer Random Glucose Lactic Acid 3.7 H* Calcium Magnesium 2.1 Total Bilirubin AST ALT Alkaline Phosphatase Creatine Kinase CK-MB (CK-2) Troponin I 0.12 H B-Natriuretic Peptide Total Protein Albumin Urine Color Urine Appearance Urine pH Ur Specific [place] Urine Protein Urine Glucose (UA) Urine Ketones Urine Blood Urine Nitrite Urine Bilirubin Urine Urobilinogen Ur Leukocyte Esterase Urine Casts (Auto) U Epithel Cells (Auto) Urine Bacteria (Auto) Stool Occult Blood 10/09/18 10/09/18 10/09/18 11:48 11:48 19:00 WBC 10.3 H RBC 4.25 Hgb 11.5 Hct 36.6 D MCV 86.1 MCH 27.1 MCHC 31.4 L RDW 18.9 H Plt Count 199 D MPV 8.5 Absolute Neuts (auto) 9.0 H Neutrophils % 87.3 H Lymphocytes % 7.3 L D Monocytes % 4.6 Eosinophils % 0.0 D Basophils % 0.8 Nucleated RBC % 0 Anticoagulation Therapy Puncture Site ABG pH ABG pCO2 at Pt Temp ABG pO2 at Pt Temp ABG HCO3 ABG O2 Sat (Measured) ABG O2 Content ABG Base Excess Moody Test Carboxyhemoglobin Methemoglobin O2 Delivery Device Oxygen Flow Rate Vent Mode Vent Rate Mechanical Rate Pressure Support Vent Sodium 137 Potassium 3.3 L Chloride 103 Carbon Dioxide 23 Anion Gap 11 BUN 12.0 Creatinine 1.0 Est GFR (CKD-EPI)AfAm 70.91 Est GFR (CKD-EPI)NonAf 61.19 POC Glucometer Random Glucose 215 H Lactic Acid Calcium 9.2 Magnesium Total Bilirubin 0.6 AST 15 ALT 17 Alkaline Phosphatase 65 Creatine Kinase CK-MB (CK-2) Troponin I B-Natriuretic Peptide 49430.9 H Total Protein 7.1 Albumin 4.1 Urine Color Yellow Urine Appearance Clear Urine pH 5.5 D Ur Specific [place] 1.018 Urine Protein 1+ H Urine Glucose (UA) Negative Urine Ketones 1+ H Urine Blood 3+ H Urine Nitrite Negative Urine Bilirubin Negative Urine Urobilinogen 0.2 Ur Leukocyte Esterase Negative Urine Casts (Auto) 33 U Epithel Cells (Auto) 6.1 Urine Bacteria (Auto) 15.9 Stool Occult Blood 10/09/18 10/09/18 10/10/18 19:25 19:25 04:35 WBC RBC Hgb Hct MCV MCH MCHC RDW Plt Count MPV Absolute Neuts (auto) Neutrophils % Lymphocytes % Monocytes % Eosinophils % Basophils % Nucleated RBC % Anticoagulation Therapy Puncture Site ABG pH ABG pCO2 at Pt Temp ABG pO2 at Pt Temp ABG HCO3 ABG O2 Sat (Measured) ABG O2 Content ABG Base Excess Moody Test Carboxyhemoglobin Methemoglobin O2 Delivery Device Oxygen Flow Rate Vent Mode Vent Rate Mechanical Rate Pressure Support Vent Sodium Potassium Chloride Carbon Dioxide Anion Gap BUN Creatinine Est GFR (CKD-EPI)AfAm Est GFR (CKD-EPI)NonAf POC Glucometer 181 Random Glucose Lactic Acid Calcium Magnesium Total Bilirubin AST ALT Alkaline Phosphatase Creatine Kinase CK-MB (CK-2) Troponin I 0.54 H B-Natriuretic Peptide 73626.2 H Total Protein Albumin Urine Color Urine Appearance Urine pH Ur Specific [place] Urine Protein Urine Glucose (UA) Urine Ketones Urine Blood Urine Nitrite Urine Bilirubin Urine Urobilinogen Ur Leukocyte Esterase Urine Casts (Auto) U Epithel Cells (Auto) Urine Bacteria (Auto) Stool Occult Blood 10/10/18 10/10/18 10/10/18 04:36 05:00 05:00 WBC 11.6 H RBC 3.89 Hgb 10.5 L Hct 33.1 MCV 85.1 MCH 27.0 MCHC 31.7 L RDW 18.7 H Plt Count 160 MPV 9.0 Absolute Neuts (auto) 11.2 H Neutrophils % 96.1 H Lymphocytes % 2.3 L D Monocytes % 1.4 L Eosinophils % 0.0 Basophils % 0.2 Nucleated RBC % 0 Anticoagulation Therapy Puncture Site Right radial ABG pH 7.41 ABG pCO2 at Pt Temp 34.5 L ABG pO2 at Pt Temp 93.9 ABG HCO3 21.6 L ABG O2 Sat (Measured) 97.0 ABG O2 Content 14.8 L ABG Base Excess -2.0 Moody Test Positive Carboxyhemoglobin Methemoglobin O2 Delivery Device Bipap Oxygen Flow Rate Yes Vent Mode S/t Vent Rate 18 Mechanical Rate Pressure Support Vent 12/5 Sodium 139 Potassium 3.5 Chloride 104 Carbon Dioxide 24 Anion Gap 11 BUN 15.5 Creatinine 1.4 H Est GFR (CKD-EPI)AfAm 47.21 Est GFR (CKD-EPI)NonAf 40.74 POC Glucometer Random Glucose 174 H Lactic Acid Calcium 8.5 Magnesium 1.9 Total Bilirubin 0.9 AST 38 H ALT 22 Alkaline Phosphatase 60 Creatine Kinase 101 CK-MB (CK-2) < 1.0 Troponin I 1.16 H* B-Natriuretic Peptide 79287.0 H Total Protein 6.7 Albumin 3.7 Urine Color Urine Appearance Urine pH Ur Specific [place] Urine Protein Urine Glucose (UA) Urine Ketones Urine Blood Urine Nitrite Urine Bilirubin Urine Urobilinogen Ur Leukocyte Esterase Urine Casts (Auto) U Epithel Cells (Auto) Urine Bacteria (Auto) Stool Occult Blood 10/10/18 10/10/18 05:00 06:15 WBC RBC Hgb Hct MCV MCH MCHC RDW Plt Count MPV Absolute Neuts (auto) Neutrophils % Lymphocytes % Monocytes % Eosinophils % Basophils % Nucleated RBC % Anticoagulation Therapy Puncture Site ABG pH ABG pCO2 at Pt Temp ABG pO2 at Pt Temp ABG HCO3 ABG O2 Sat (Measured) ABG O2 Content ABG Base Excess Moody Test Carboxyhemoglobin Methemoglobin O2 Delivery Device Oxygen Flow Rate Vent Mode Vent Rate Mechanical Rate Pressure Support Vent Sodium Potassium Chloride Carbon Dioxide Anion Gap BUN Creatinine Est GFR (CKD-EPI)AfAm Est GFR (CKD-EPI)NonAf POC Glucometer Random Glucose Lactic Acid 3.3 H* Calcium Magnesium Total Bilirubin AST ALT Alkaline Phosphatase Creatine Kinase CK-MB (CK-2) Troponin I B-Natriuretic Peptide Total Protein Albumin Urine Color Urine Appearance Urine pH Ur Specific [place] Urine Protein Urine Glucose (UA) Urine Ketones Urine Blood Urine Nitrite Urine Bilirubin Urine Urobilinogen Ur Leukocyte Esterase Urine Casts (Auto) U Epithel Cells (Auto) Urine Bacteria (Auto) Stool Occult Blood Negative Active Medications Generic Name Dose Route Start Last Admin Trade Name Freq PRN Reason Stop Dose Admin Acetaminophen 650 mg 10/09/18 17:46 Tylenol - PO Q6H PRN Fever Or Pain Apixaban 5 mg 10/09/18 22:00 10/09/18 23:04 Eliquis - PO 5 mg BID CHANG Administration Atorvastatin Calcium 20 mg 10/09/18 22:00 10/09/18 23:03 Lipitor - PO 20 mg HS CHANG Administration Carvedilol 6.25 mg 10/09/18 22:00 10/09/18 23:04 Coreg - PO 6.25 mg BID CHANG Administration Cholecalciferol 5,000 unit 10/10/18 10:00 Vitamin D3 - PO DAILY CHANG Furosemide 40 mg 10/09/18 18:00 10/10/18 05:15 Lasix Injection - IVPUSH 40 mg BID@0600,1400 CHANG Administration Norepinephrine Bitartrate 8, 500 mls @ 9.33 mls/hr 10/10/18 07:45 10/10/18 07 :45 000 mcg/ Dextrose IV 0.24 mcg/kg/min ASDIR CHANG 75 mls/hr Administration Protocol 0.03 MCG/KG/MIN Lactobacillus Acidophilus 1 tab 10/10/18 10:00 Bacid - PO DAILY CHANG Methylprednisolone Sodium Succinate 40 mg 10/09/18 21:00 10/10/18 09:56 Solu-Medrol - IVPUSH 40 mg Q6H-IV CHANG Administration Pantoprazole Sodium 20 mg 10/09/18 22:00 10/09/18 23:03 Protonix - PO 20 mg BID CHANG Administration Ramipril 2.5 mg 10/10/18 10:00 Altace - PO DAILY CHANG Tolterodine Tartrate 2 mg 10/10/18 10:00 Detrol - PO DAILY CHANG ASSESSMENT/PLAN: 62 year old female with PMHx of NYHA III systolic CHF, sarcoidosis, HTN, HLD presents to the ed with 2 days of difficulty breathing with wheezing and initially admitted for acute on chronic CHF exacerbation is brought to ICU for acute decompensation of respiratory status with a temperature of 107 Undifferentiated Shock Hyperpyrexia Acute respiratory distress Acute on Chronic CHF Exacerbation History of bilateral pulmonary embolism History of cerebral hemorrhage History of pulmonary sarcoidosis History of Afib AICD with complete heart block Neurologic History of cerebral hemorrhage Acute metabolic encephalopathy - unclear whether this is septic etiology at present moment Fever of 107, put on cooling blanket and is now improving - 100.8 down from 107 Pulmonary Acute respiratory distress -did not improve on bipap with increased work of breathing, use of accessory muscles -patient intubated for respiratory support using propofol/versed and glidescope with a 7.0 ET tube - vent settings: TV 400, FiO2 50%, PEEP 5, Rate 14 -History of pulmonary embolism- start weight based lovenox -eliquis held -CXR ordered -Chest CTA still pending for later today -hx pulmonary sarcoid Cardiovascular -Undifferentiated Shock: likely combination of distributive, cardiogenic or obstructive vs septic -CVP 20, supporting picture of obstructive/cardiogenic -unclear compliance with eliquis at home, could be extension of PE -empiric meropenem was started -continuing to diurese -When patient first came to ICU the MAPs were 29-33 -levophed was started and increased to 25mcgs -start vasopressin at 2 -stress dose fludrocortisone 0.05 and hydrocortisone 50mg started -consider inotrope, home antihypertensives held -troponin key to ~1.16 today, continue to trend, no prior EKG changes, will repeat at 11 -cardiology consultation, consider ASA/Plavix -repeat echo Gastrointestinal -NPO, OG tube inserted -Protonix Infectious disease Hyperpyrexia with fever 107 Cooling blankets placed and temp improving, 100.4 Meropenem started Lactic acid 3.3 and downtrending, repeating at 11am follow blood and urine cultures ID consultation Renal -Acute kidney injury with creatinine 1.4, likely pre-renal in origin in the setting of shock -Dr. Lazo consulted Disposition: -monitor in ICU -Guarded prognosis -will need goals of care meeting with daughter and son Visit type - Emergency Visit Emergency Visit: No - New Patient This patient is new to me today: Yes Date on this admission: 10/10/18 - Critical Care Critical Care patient: Yes Total Critical Care Time (in minutes): 60 Critical Care Statement: The care of this patient involved high complexity decision making to prevent further life threatening deterioration of the patient 's condition and/or to evaluate & treat vital organ system(s) failure or risk of failure. ATTENDING PHYSICIAN STATEMENT I saw and evaluated the patient. I reviewed the resident's note and discussed the case with the resident. I agree with the resident's findings and plan as documented. SUBJECTIVE: OBJECTIVE: ASSESSMENT AND PLAN:
[2018-10-10] MEDS ORDERED: HEPARIN NA (PORCINE) 5,000 UNITS/ML 1ML VIAL IVPUSH PRN ×2 (10:06)
--- NOTE | 2018-10-10 10:29 | PN ---
Teaching Attending Note Name of Resident: Veto Ricks ATTENDING PHYSICIAN STATEMENT I saw and evaluated the patient. I reviewed the resident's note and discussed the case with the resident. I agree with the resident's findings and plan as documented. SUBJECTIVE: Patient seen and examined in the ICU. Severe respiratory distress and lethargic on NIPPV support. Endotracheally intubated with Glidescope blade 3, 7.0 ETT secured at 22 at the lips. NE @ 25 mcq infusing for hemodynamic support. Intake & Output 10/07/18 10/08/18 10/09/18 10/10/18 23:59 23:59 23:59 23:59 Intake Total 200 120 Output Total 900 Balance 200 -780 Weight 183 lb Last Vital Signs Temp Pulse Resp BP Pulse Ox 106.9 F H 74 44 H 126/57 L 97 10/10/18 07:00 10/10/18 07:45 10/10/18 08:00 10/10/18 08:00 10/10/18 08:39 Active Medications Acetaminophen (Tylenol -) 650 mg PO Q6H PRN PRN Reason: Fever Or Pain Atorvastatin Calcium (Lipitor -) 20 mg PO HS [facility] Last Admin: 10/09/18 23:03 Dose: 20 mg Carvedilol (Coreg -) 6.25 mg PO BID [facility] Last Admin: 10/09/18 23:04 Dose: 6.25 mg Cholecalciferol (Vitamin D3 -) 5,000 unit PO DAILY [facility] Fludrocortisone Acetate (Florinef -) 0.5 mg PO DAILY [facility] Furosemide (Lasix Injection -) 40 mg IVPUSH BID@0600,1400 [facility] Last Admin: 10/10/18 05:15 Dose: 40 mg Heparin Sodium (Porcine) (Heparin -) 1,000 unit IVPUSH PRN PRN PRN Reason: Heparin Heparin Sodium (Porcine) (Heparin -) 5,000 unit IVPUSH PRN PRN PRN Reason: Heparin Hydrocortisone Sodium Succinate (Solu-Cortef -) 50 mg IVPB Q6H [facility] Norepinephrine Bitartrate 8, (000 mcg/ Dextrose) 500 mls @ 9.33 mls/hr IV ASDIR CHANG; Protocol Last Admin: 10/10/18 07:45 Dose: 0.24 mcg/kg/min, 75 mls/hr Heparin Sodium/Dextrose (Heparin Infusion -) 25,000 units in 500 mls @ 20 mls/ hr IVPB TITR CHANG; Protocol Vasopressin 50 units/ Sodium (Chloride) 100 mls @ 4 mls/hr IVPB ASDIR CAHNG; Protocol Lactobacillus Acidophilus (Bacid -) 1 tab PO DAILY [facility] Pantoprazole Sodium (Protonix -) 20 mg PO BID [facility] Last Admin: 10/09/18 23:03 Dose: 20 mg Ramipril (Altace -) 2.5 mg PO DAILY [facility] Tolterodine Tartrate (Detrol -) 2 mg PO DAILY [facility] GENERAL: Intubated and sedated HEENT: NC/AT. PERRL, sclera anicteric. Dry mucous membranes. LUNGS: Vented, bilateral coarse breath sounds, no wheeze HEART: Regular rate and rhythm, normal S1 and S2. ABDOMEN: Soft, softly distended, (+) BS, (-) guarding EXTREMITIES: 1+radial, dorsalis pedis pulses bilaterally, cool to touch NEUROLOGICAL: Lethargic, poorly responsive Laboratory Results - last 24 hr 10/09/18 10/09/18 10/09/18 11:41 11:48 11:48 WBC RBC Hgb Hct MCV MCH MCHC RDW Plt Count MPV Absolute Neuts (auto) Neutrophils % Lymphocytes % Monocytes % Eosinophils % Basophils % Nucleated RBC % Anticoagulation Therapy No Result Required. Puncture Site Right radial ABG pH 7.34 L ABG pCO2 at Pt Temp 36.4 ABG pO2 at Pt Temp 160 H ABG HCO3 19.0 L ABG O2 Sat (Measured) 99.1 H ABG O2 Content 15.2 ABG Base Excess -5.7 L Moody Test Positive Carboxyhemoglobin 0.9 Methemoglobin 0.2 O2 Delivery Device No Result Required. Oxygen Flow Rate 50 Vent Mode No Result Required. Vent Rate No Result Required. Mechanical Rate No Result Required. Pressure Support Vent No Result Required. Sodium Potassium Chloride Carbon Dioxide Anion Gap BUN Creatinine Est GFR (CKD-EPI)AfAm Est GFR (CKD-EPI)NonAf POC Glucometer Random Glucose Lactic Acid 3.7 H* Calcium Magnesium 2.1 Total Bilirubin AST ALT Alkaline Phosphatase Creatine Kinase CK-MB (CK-2) Troponin I 0.12 H B-Natriuretic Peptide Total Protein Albumin Urine Color Urine Appearance Urine pH Ur Specific Gotham Urine Protein Urine Glucose (UA) Urine Ketones Urine Blood Urine Nitrite Urine Bilirubin Urine Urobilinogen Ur Leukocyte Esterase Urine Casts (Auto) U Epithel Cells (Auto) Urine Bacteria (Auto) Stool Occult Blood 10/09/18 10/09/18 10/09/18 11:48 11:48 19:00 WBC 10.3 H RBC 4.25 Hgb 11.5 Hct 36.6 D MCV 86.1 MCH 27.1 MCHC 31.4 L RDW 18.9 H Plt Count 199 D MPV 8.5 Absolute Neuts (auto) 9.0 H Neutrophils % 87.3 H Lymphocytes % 7.3 L D Monocytes % 4.6 Eosinophils % 0.0 D Basophils % 0.8 Nucleated RBC % 0 Anticoagulation Therapy Puncture Site ABG pH ABG pCO2 at Pt Temp ABG pO2 at Pt Temp ABG HCO3 ABG O2 Sat (Measured) ABG O2 Content ABG Base Excess Moody Test Carboxyhemoglobin Methemoglobin O2 Delivery Device Oxygen Flow Rate Vent Mode Vent Rate Mechanical Rate Pressure Support Vent Sodium 137 Potassium 3.3 L Chloride 103 Carbon Dioxide 23 Anion Gap 11 BUN 12.0 Creatinine 1.0 Est GFR (CKD-EPI)AfAm 70.91 Est GFR (CKD-EPI)NonAf 61.19 POC Glucometer Random Glucose 215 H Lactic Acid Calcium 9.2 Magnesium Total Bilirubin 0.6 AST 15 ALT 17 Alkaline Phosphatase 65 Creatine Kinase CK-MB (CK-2) Troponin I B-Natriuretic Peptide 64071.9 H Total Protein 7.1 Albumin 4.1 Urine Color Yellow Urine Appearance Clear Urine pH 5.5 D Ur Specific Gotham 1.018 Urine Protein 1+ H Urine Glucose (UA) Negative Urine Ketones 1+ H Urine Blood 3+ H Urine Nitrite Negative Urine Bilirubin Negative Urine Urobilinogen 0.2 Ur Leukocyte Esterase Negative Urine Casts (Auto) 33 U Epithel Cells (Auto) 6.1 Urine Bacteria (Auto) 15.9 Stool Occult Blood 10/09/18 10/09/18 10/10/18 19:25 19:25 04:35 WBC RBC Hgb Hct MCV MCH MCHC RDW Plt Count MPV Absolute Neuts (auto) Neutrophils % Lymphocytes % Monocytes % Eosinophils % Basophils % Nucleated RBC % Anticoagulation Therapy Puncture Site ABG pH ABG pCO2 at Pt Temp ABG pO2 at Pt Temp ABG HCO3 ABG O2 Sat (Measured) ABG O2 Content ABG Base Excess Moody Test Carboxyhemoglobin Methemoglobin O2 Delivery Device Oxygen Flow Rate Vent Mode Vent Rate Mechanical Rate Pressure Support Vent Sodium Potassium Chloride Carbon Dioxide Anion Gap BUN Creatinine Est GFR (CKD-EPI)AfAm Est GFR (CKD-EPI)NonAf POC Glucometer 181 Random Glucose Lactic Acid Calcium Magnesium Total Bilirubin AST ALT Alkaline Phosphatase Creatine Kinase CK-MB (CK-2) Troponin I 0.54 H B-Natriuretic Peptide 05945.2 H Total Protein Albumin Urine Color Urine Appearance Urine pH Ur Specific Gotham Urine Protein Urine Glucose (UA) Urine Ketones Urine Blood Urine Nitrite Urine Bilirubin Urine Urobilinogen Ur Leukocyte Esterase Urine Casts (Auto) U Epithel Cells (Auto) Urine Bacteria (Auto) Stool Occult Blood 10/10/18 10/10/18 10/10/18 04:36 05:00 05:00 WBC 11.6 H RBC 3.89 Hgb 10.5 L Hct 33.1 MCV 85.1 MCH 27.0 MCHC 31.7 L RDW 18.7 H Plt Count 160 MPV 9.0 Absolute Neuts (auto) 11.2 H Neutrophils % 96.1 H Lymphocytes % 2.3 L D Monocytes % 1.4 L Eosinophils % 0.0 Basophils % 0.2 Nucleated RBC % 0 Anticoagulation Therapy Puncture Site Right radial ABG pH 7.41 ABG pCO2 at Pt Temp 34.5 L ABG pO2 at Pt Temp 93.9 ABG HCO3 21.6 L ABG O2 Sat (Measured) 97.0 ABG O2 Content 14.8 L ABG Base Excess -2.0 Moody Test Positive Carboxyhemoglobin Methemoglobin O2 Delivery Device Bipap Oxygen Flow Rate Yes Vent Mode S/t Vent Rate 18 Mechanical Rate Pressure Support Vent 12/5 Sodium 139 Potassium 3.5 Chloride 104 Carbon Dioxide 24 Anion Gap 11 BUN 15.5 Creatinine 1.4 H Est GFR (CKD-EPI)AfAm 47.21 Est GFR (CKD-EPI)NonAf 40.74 POC Glucometer Random Glucose 174 H Lactic Acid Calcium 8.5 Magnesium 1.9 Total Bilirubin 0.9 AST 38 H ALT 22 Alkaline Phosphatase 60 Creatine Kinase 101 CK-MB (CK-2) < 1.0 Troponin I 1.16 H* B-Natriuretic Peptide 66818.0 H Total Protein 6.7 Albumin 3.7 Urine Color Urine Appearance Urine pH Ur Specific Goth[place] Urine Protein Urine Glucose (UA) Urine Ketones Urine Blood Urine Nitrite Urine Bilirubin Urine Urobilinogen Ur Leukocyte Esterase Urine Casts (Auto) U Epithel Cells (Auto) Urine Bacteria (Auto) Stool Occult Blood 10/10/18 10/10/18 05:00 06:15 WBC RBC Hgb Hct MCV MCH MCHC RDW Plt Count MPV Absolute Neuts (auto) Neutrophils % Lymphocytes % Monocytes % Eosinophils % Basophils % Nucleated RBC % Anticoagulation Therapy Puncture Site ABG pH ABG pCO2 at Pt Temp ABG pO2 at Pt Temp ABG HCO3 ABG O2 Sat (Measured) ABG O2 Content ABG Base Excess Moody Test Carboxyhemoglobin Methemoglobin O2 Delivery Device Oxygen Flow Rate Vent Mode Vent Rate Mechanical Rate Pressure Support Vent Sodium Potassium Chloride Carbon Dioxide Anion Gap BUN Creatinine Est GFR (CKD-EPI)AfAm Est GFR (CKD-EPI)NonAf POC Glucometer Random Glucose Lactic Acid 3.3 H* Calcium Magnesium Total Bilirubin AST ALT Alkaline Phosphatase Creatine Kinase CK-MB (CK-2) Troponin I B-Natriuretic Peptide Total Protein Albumin Urine Color Urine Appearance Urine pH Ur Specific Goth[place] Urine Protein Urine Glucose (UA) Urine Ketones Urine Blood Urine Nitrite Urine Bilirubin Urine Urobilinogen Ur Leukocyte Esterase Urine Casts (Auto) U Epithel Cells (Auto) Urine Bacteria (Auto) Stool Occult Blood Negative ASSESSMENT/PLAN: Acute Respiratory Failure Suspected combined Septic shock & cardiogenic shock: R/O Obstructive Shock due to untreated VTE Hyperpyrexia (?) unclear etiology of such high grade fever History of bilateral pulmonary embolism History of cerebral hemorrhage History of pulmonary sarcoidosis History of Afib AICD with complete heart block Medication non-compliance Atkins-culture Broad spectrum ABX: ID consult has been called Follow CVP Strict I & O Pressors: NE & Vasopressin May need Inotrope: To discuss with Cardiology ECHO Minimize IVF Once stable: CTA and CT head Hydrocortisone and Fludrocortisone for Shock PPI Renal evaluation Full AC with IV Heparin in the event IR procedures are required Requires ICU monitoring Dr Matson Critical care time spent in reviewing chart, evaluating patient and formulating plan - 36 minutes.
[2018-10-10] MEDS: HEPARIN INFUSION - 25,000 UNITS/500 ML INFUS.BAG IVPB SCH ×2 (10:30→10:36)
[2018-10-10] MEDS: PROPOFOL 1,000,000 MCG/100 ML VIAL IVPB SCH (10:31)
[2018-10-10] MEDS ORDERED: HYDROCORTISONE SOD SUCCINATE 100 MG/2 ML VIAL IVPUSH ONE (10:39)
[2018-10-10] MEDS ORDERED: MEROPENEM 1 GM VIAL (RESTRICTED TO ID) IVPB ONE ×2 (10:43→17:42)
[2018-10-10] MEDS ORDERED: DEXTROSE 5%-WATER 100 ML IVPB ONE ×2 (10:44→17:42)
[2018-10-10] MEDS ORDERED: VASOPRESSIN 20 UNITS/ML VIAL IV ONE (10:46)
[2018-10-10] MEDS: VASOPRESSIN 50 UNITS in SODIUM CHLORIDE 97.5 ML IVPB SCH (10:47)
[2018-10-10] MEDS ORDERED: MEROPENEM 1 GM in DEXTROSE 5%-WATER 100 ML IVPB ONE (11:00)
[2018-10-10 11:30] LABS: ANISOCYTOSIS 1+; MACROCYTOSIS 0; PLATELET ESTIMATE NORMAL
--- NOTE | 2018-10-10 11:31 | EKG ---
Test Reason : Blood Pressure : / mmHG Vent. Rate : 084 BPM Atrial Rate : 049 BPM P-R Int : 000 ms QRS Dur : 158 ms QT Int : 468 ms P-R-T Axes : 000 -55 167 degrees QTc Int : 553 ms Ventricular-paced rhythm WITH OCCASIONAL PREMATURE VENTRICULAR COMPLEXES ABNORMAL ECG WHEN COMPARED WITH ECG OF 09-OCT-2018 11:14, VENT. RATE HAS DECREASED BY 3 BPM Confirmed by KRISTINA ALLEN, KARL ([id number]) on 10/10/2018 11:30:48 AM Referred By: Confirmed By:KARL ACEVEDO MD
--- NOTE | 2018-10-10 11:35 | EKG ---
Test Reason : Blood Pressure : / mmHG Vent. Rate : 106 BPM Atrial Rate : 110 BPM P-R Int : 000 ms QRS Dur : 178 ms QT Int : 410 ms P-R-T Axes : 008 -50 106 degrees QTc Int : 544 ms Ventricular-paced rhythm WITH PREMATURE VENTRICULAR OR ABERRANTLY CONDUCTED COMPLEXES ABNORMAL ECG WHEN COMPARED WITH ECG OF 10-OCT-2018 05:01, PREMATURE VENTRICULAR COMPLEXES ARE NO LONGER PRESENT VENT. RATE HAS INCREASED BY 22 BPM Confirmed by KARL ACEVEDO MD ([id number]) on 10/10/2018 11:35:19 AM Referred By: Fuentes MAS Confirmed By:KARL ACEVEDO MD
--- NOTE | 2018-10-10 11:36 | EKG ---
Test Reason : Blood Pressure : / mmHG Vent. Rate : 087 BPM Atrial Rate : 075 BPM P-R Int : 184 ms QRS Dur : 154 ms QT Int : 386 ms P-R-T Axes : 000 -57 051 degrees QTc Int : 464 ms AV dual-paced rhythm WITH OCCASIONAL PREMATURE VENTRICULAR COMPLEXES ABNORMAL ECG WHEN COMPARED WITH ECG OF 21-SEP-2018 15:30, PREMATURE VENTRICULAR COMPLEXES ARE NOW PRESENT VENT. RATE HAS INCREASED BY 4 BPM Confirmed by KARL ACEVEDO MD ([id number]) on 10/10/2018 11:36:11 AM Referred By: Confirmed By:KARL ACEVEDO MD
[2018-10-10] MEDS: HYDROCORTISONE SOD SUCCINATE 100 MG/2 ML VIAL IVPB SCH ×3 (11:39→20:31)
[2018-10-10] MEDS: ENOXAPARIN NA (PORCINE) 80 MG/0.8 ML DISP.SYRIN SQ SCH ×2 (11:39→21:45)
[2018-10-10] MEDS: PANTOPRAZOLE 20 MG TABLET (FP) PO SCH ×2 (12:28→21:45)
[2018-10-10] MEDS: TOLTERODINE TARTRATE 2 MG TABLET PO SCH (12:28)
[2018-10-10] MEDS: CARVEDILOL 3.125 MG TABLET (FP) PO SCH ×2 (12:28→21:45)
[2018-10-10] MEDS: LACTOBACILLUS ACIDOPHILUS 1 TABLET PO SCH (12:28)
[2018-10-10] MEDS: RAMIPRIL 2.5 MG CAPSULE (FP) PO SCH (12:28)
[2018-10-10] MEDS: CHOLECALCIFEROL (VIT D3) 1,000 UNIT (25 MCG) TABLET PO SCH (12:29)
[2018-10-10] MEDS: FLUDROCORTISONE ACETATE 0.1 MG TABLET (FP) PO SCH (12:29)
[2018-10-10 12:31] LABS: ARTERIAL BLD GAS O2 SATURATION 98.6 % (95-98); ARTERIAL BLOOD GAS BASE EXCESS -4.1 meq/l (-2-2); ARTERIAL BLOOD GAS PCO2 44.2 mmHg (35-45); ARTERIAL BLOOD GAS PO2 130 mmHg (80-105); ARTERIAL BLOOD GAS pH 7.31 (7.35-7.45)
[2018-10-10 12:33] LABS: ALLENS TEST POSITIVE
--- NOTE | 2018-10-10 13:05 | CON.CARD ---
Consult Consult Specialty:: cardiology Reason for Consultation:: respiratory failure; shock - History of Present Illness Chief Complaint: Intubated; sedated History of Present Illness: The patient is a 62-year-old female, with a past medical history of reported NYHA III systolic CHF (though normal LVEF on 06/2016 ALETHEA, with moderately severe MR) and TR, with ?subsequent TV repair and bioprosthetic MV replacement, , recent b/l PE on eliquis, sarcoidosis, HTN, HLD, COPD, GERD, ? hemorrhagic CVA (by hx, though CT head 2018 shows no pathology), who presents to the ED with shortness of breath, for 2 weeks. Patients aunt is at bedside and reports that she has not taken her Lasix in over 2 weeks. Pt and aunt report she has been taking the eliquis. Denies any chest pain or palpitations. Denies any weakness, dizziness, or changes in strength or sensation. No recent travel or immobility. The patient denied any fevers, chills, cough, nausea, vomiting, diarrhea, or abdominal pain. After admission to the floor, she deteriorated, and was found to have high rectal temperature; respiratory failure-->intubation and tranfer to [facility]. TNI, initially 0.12 yesterday am, increased to 0.54 several hours later. Allergies: Amoxicillin trihydrate, potassium clavulanate. Surgical History: Tricuspid repair and mitral valve replacement (?2017); ?CABG, Cholecystectomy, LT hip sx. PCP: Dr. 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: CVA (hemmorhagic) Cardio/Vascular: Yes: CHF, HTN Pulmonary: Yes: COPD, Other (Sarcoid) Gastrointestinal: Yes: GERD Reproductive: Yes: Postmenopausal ...: No - Past Surgical History Past Surgical History: Yes: Cholecystectomy, Permanent Pacemaker, Valve Replacement (MVR, TV repair) - Alcohol/Substance Use Hx Alcohol Use: No - Smoking History Smoking history: Former smoker Have you smoked in the past 12 months: No Aproximately how many cigarettes per day: 0 If you are a former smoker, when did you quit?: 36 YRS AGO - Social History 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[employer]) History of Recent Travel: No Home Medications - Allergies Allergies/Adverse Reactions: Allergies Allergy/AdvReac Type Severity Reaction Status Date / Time amoxicillin trihydrate AdvReac Severe Verified 09/09/18 07:02 [From Augmentin] potassium clavulanate AdvReac Severe Verified 09/09/18 07:02 [From Augmentin] - Home Medications Home Medications: Ambulatory Orders Tolterodine Tartrate 2 mg PO DAILY 02/15/15 Cholecalciferol (Vitamin D3) [Vitamin D3] 5,000 unit PO DAILY 03/08/15 Atorvastatin Ca [Lipitor] 20 mg PO HS 06/04/16 Carvedilol 6.25 mg PO BID 06/04/16 Omeprazole 20 mg PO BID 06/04/16 Ramipril 2.5 mg PO DAILY 06/04/16 Furosemide [Lasix] 20 mg PO DAILY 06/07/18 Albuterol 0.083% Nebulizer Sheeba [Ventolin 0.083% Nebulizer Soln -] 1 amp NEB PRN PRN 09/05/18 Albuterol Sulfate [Proair Hfa] 1 - 2 inh IH PRN 09/05/18 Prednisone 10 mg PO DAILY #30 tablet 09/16/18 Acetaminophen [Tylenol .Regular Strength -] 650 mg PO Q6H PRN tablet 09/23/18 Apixaban [Eliquis -] 5 mg PO BID tablet 09/23/18 Bethanechol Chloride [Bethanechol Chloride -] 5 mg PO TID tablet 09/23/18 Family Disease History - Family Disease History Family Disease History: Other: Mother ("Blood Cancer-Needed Transfusions") Review of Systems Unable to obtain ROS, reason: intubated; sedated - Risk Factors Known Risk Factors: Yes: Age, Hypertension, Physical Inactivity, Other (sarcoid ; s/p PE; systolic CHF;) Vital Signs: Vital Signs Temperature 99.8 F H 10/10/18 10:00 Pulse Rate 82 10/10/18 10:47 Respiratory Rate 16 10/10/18 12:03 Blood Pressure 97/56 L 10/10/18 10:47 O2 Sat by Pulse Oximetry (%) 97 10/10/18 08:39 Constitutional: Yes: Obese Eyes: Yes: Conjunctiva Clear HENT: Yes: Other Neck: Yes: Decreased ROM Respiratory: Yes: Diminished, Intubated, Mechanically Ventilated Gastrointestinal: Yes: Soft Renal/: Yes: Barclay Present. No: Anuria Cardiovascular: Yes: Regular Rate and Rhythm JVD: No Carotid Bruit: No PMI: Displaced Heart Sounds: Yes: S1, Split S2 Murmur: Yes: Systolic Murmur, Grade 2 Musculoskeletal: Yes: Muscle Weakness Extremities: Yes: Cool Edema: Yes Edema: LLE: Trace, RLE: Trace Peripheral Pulses WNL: Yes Integumentary: Yes: WNL Neurological: Yes: Unresponsive (intubated; sedated) Psychiatric: Yes: WNL - Other Data Labs, Other Data: CBC, BMP 10/10/18 05:00 10/10/18 05:00 Troponin, BNP 10/09/18 10/09/18 10/09/18 11:48 19:25 19:25 Troponin I 0.54 H B-Natriuretic Peptide 29602.9 H 00260.2 H 10/10/18 05:00 Troponin I 1.16 H* B-Natriuretic Peptide 52317.0 H Troponin, BNP 10/09/18 10/09/18 10/09/18 11:48 19:25 19:25 Troponin I 0.54 H B-Natriuretic Peptide 58112.9 H 40225.2 H 10/10/18 05:00 Troponin I 1.16 H* B-Natriuretic Peptide 14322.0 H Ejection Fraction %: LVEF < 40 % Imaging - Results Chest X-ray: Image Reviewed EKG: Image Reviewed Other: Image Reviewed (telemetry: ventricular paced rhythm) Problem List - Problems (2) Shock Assessment/Plan: etiologies may be multiple, and include septic, cardiogenic, respiratory compromise related to sarcoid;, ? new PE. TNI with mild elevation without corresponding CK elevation; likely demand ischemia from mulitiple sources, including CHF, sepsis, ischemia, pulmonic failure. Rectal temp to 107 F; mild elevation in WBC. CXR: enlarged heart; congestiive chenges; markedly elevated BNP. Presently on high doses of both norepinephrine and vasopressin. Start inotrope (eg milrinone) if hemodynamic compromise continues despite present regimen. Limit fluids, given present fluid overload; f/u BUn/Cr, Is and Os, daily weight. Electrolytes: eep K 4-4.5; Mg 2-2.3, PO4 2.5-4.9. For CTA chest. For ECHO. Serial TNI. Code(s): R57.9 - SHOCK, UNSPECIFIED (3) HTN (hypertension) Code(s): I10 - ESSENTIAL (PRIMARY) HYPERTENSION (4) Respiratory failure with hypoxia Code(s): J96.91 - RESPIRATORY FAILURE, UNSPECIFIED WITH HYPOXIA (5) Intracranial hemorrhage Code(s): I62.9 - NONTRAUMATIC INTRACRANIAL HEMORRHAGE, UNSPECIFIED (6) Presence of single implantable cardioverter-defibrillator (ICD) Code(s): Z95.810 - PRESENCE OF AUTOMATIC (IMPLANTABLE) CARDIAC DEFIBRILLATOR (7) Pulmonary embolism Code(s): I26.99 - OTHER PULMONARY EMBOLISM WITHOUT ACUTE COR PULMONALE (9) Sarcoidosis Code(s): D86.9 - SARCOIDOSIS, UNSPECIFIED Assessment/Plan CCU time spent 75 minutes.
--- NOTE | 2018-10-10 13:42 | PN ---
Physical Exam: SUBJECTIVE: Patient seen and examined. patient has to be intubated this morning and she is successfully intubated and seen by pulmonary (3rd pressman) OBJECTIVE: Vital Signs Period Temp Pulse Resp BP Sys/Zayas Pulse Ox Last 24 Hr 98.1 F-107.6 F 60-114 14-44 63-148/34-90 95-100 GENERAL: The patient in no distress but on vent HEAD: Normal with no signs of trauma. NECK: Trachea midline, full range of motion, supple. LUNGS: Breath sounds equal, clear to auscultation bilaterally, no wheezes, no crackles, no accessory muscle use. HEART: Regular rate and rhythm, ABDOMEN: Soft, nontender, nondistended, normoactive bowel sounds, EXTREMITIES: , warm, well-perfused, no edema. NEUROLOGICAL: sedated Laboratory Results - last 24 hr 10/09/18 10/09/18 10/09/18 11:48 19:00 19:25 WBC RBC Hgb Hct MCV MCH MCHC RDW Plt Count MPV Absolute Neuts (auto) Neutrophils % Neutrophils % (Manual) Band Neutrophils % Lymphocytes % Lymphocytes % (Manual) Monocytes % Monocytes % (Manual) Eosinophils % Eosinophils % (Manual) Basophils % Basophils % (Manual) Myelocytes % (Man) Promyelocytes % (Man) Blast Cells % (Manual) Nucleated RBC % Metamyelocytes Hypochromia Platelet Estimate Polychromasia Poikilocytosis Anisocytosis Microcytosis Macrocytosis Fragmented RBCs PTT (Actin FS) Anticoagulation Therapy Puncture Site ABG pH ABG pCO2 at Pt Temp ABG pO2 at Pt Temp ABG HCO3 ABG O2 Sat (Measured) ABG O2 Content ABG Base Excess Moody Test O2 Delivery Device Oxygen Flow Rate Vent Mode Vent Rate Mechanical Rate Pressure Support Vent Sodium Potassium Chloride Carbon Dioxide Anion Gap BUN Creatinine Est GFR (CKD-EPI)AfAm Est GFR (CKD-EPI)NonAf POC Glucometer Random Glucose Lactic Acid Calcium Magnesium Total Bilirubin AST ALT Alkaline Phosphatase Creatine Kinase 61 CK-MB (CK-2) Troponin I 0.54 H B-Natriuretic Peptide 74422.9 H Total Protein Albumin Urine Color Yellow Urine Appearance Clear Urine pH 5.5 D Ur Specific Jermyn 1.018 Urine Protein 1+ H Urine Glucose (UA) Negative Urine Ketones 1+ H Urine Blood 3+ H Urine Nitrite Negative Urine Bilirubin Negative Urine Urobilinogen 0.2 Ur Leukocyte Esterase Negative Urine Casts (Auto) 33 U Epithel Cells (Auto) 6.1 Urine Bacteria (Auto) 15.9 Stool Occult Blood 10/09/18 10/10/18 10/10/18 19:25 04:35 04:36 WBC RBC Hgb Hct MCV MCH MCHC RDW Plt Count MPV Absolute Neuts (auto) Neutrophils % Neutrophils % (Manual) Band Neutrophils % Lymphocytes % Lymphocytes % (Manual) Monocytes % Monocytes % (Manual) Eosinophils % Eosinophils % (Manual) Basophils % Basophils % (Manual) Myelocytes % (Man) Promyelocytes % (Man) Blast Cells % (Manual) Nucleated RBC % Metamyelocytes Hypochromia Platelet Estimate Polychromasia Poikilocytosis Anisocytosis Microcytosis Macrocytosis Fragmented RBCs PTT (Actin FS) Anticoagulation Therapy Puncture Site Right radial ABG pH 7.41 ABG pCO2 at Pt Temp 34.5 L ABG pO2 at Pt Temp 93.9 ABG HCO3 21.6 L ABG O2 Sat (Measured) 97.0 ABG O2 Content 14.8 L ABG Base Excess -2.0 Moody Test Positive O2 Delivery Device Bipap Oxygen Flow Rate Yes Vent Mode S/t Vent Rate 18 Mechanical Rate Pressure Support Vent 12/5 Sodium Potassium Chloride Carbon Dioxide Anion Gap BUN Creatinine Est GFR (CKD-EPI)AfAm Est GFR (CKD-EPI)NonAf POC Glucometer 181 Random Glucose Lactic Acid Calcium Magnesium Total Bilirubin AST ALT Alkaline Phosphatase Creatine Kinase CK-MB (CK-2) Troponin I B-Natriuretic Peptide 82366.2 H Total Protein Albumin Urine Color Urine Appearance Urine pH Ur Specific Jermyn Urine Protein Urine Glucose (UA) Urine Ketones Urine Blood Urine Nitrite Urine Bilirubin Urine Urobilinogen Ur Leukocyte Esterase Urine Casts (Auto) U Epithel Cells (Auto) Urine Bacteria (Auto) Stool Occult Blood 10/10/18 10/10/18 10/10/18 05:00 05:00 05:00 WBC 11.6 H RBC 3.89 Hgb 10.5 L Hct 33.1 MCV 85.1 MCH 27.0 MCHC 31.7 L RDW 18.7 H Plt Count 160 MPV 9.0 Absolute Neuts (auto) 11.2 H Neutrophils % 96.1 H Neutrophils % (Manual) 95.9 H Band Neutrophils % 0.0 Lymphocytes % 2.3 L D Lymphocytes % (Manual) 3.1 L D Monocytes % 1.4 L Monocytes % (Manual) 1 L D Eosinophils % 0.0 Eosinophils % (Manual) 0.0 Basophils % 0.2 Basophils % (Manual) 0.0 Myelocytes % (Man) 0 Promyelocytes % (Man) 0 Blast Cells % (Manual) 0 Nucleated RBC % 0 Metamyelocytes 0 Hypochromia 0 Platelet Estimate Normal Polychromasia 0 Poikilocytosis 0 Anisocytosis 1+ Microcytosis 1+ Macrocytosis 0 Fragmented RBCs 1+ PTT (Actin FS) Anticoagulation Therapy Puncture Site ABG pH ABG pCO2 at Pt Temp ABG pO2 at Pt Temp ABG HCO3 ABG O2 Sat (Measured) ABG O2 Content ABG Base Excess Moody Test O2 Delivery Device Oxygen Flow Rate Vent Mode Vent Rate Mechanical Rate Pressure Support Vent Sodium 139 Potassium 3.5 Chloride 104 Carbon Dioxide 24 Anion Gap 11 BUN 15.5 Creatinine 1.4 H Est GFR (CKD-EPI)AfAm 47.21 Est GFR (CKD-EPI)NonAf 40.74 POC Glucometer Random Glucose 174 H Lactic Acid 3.3 H* Calcium 8.5 Magnesium 1.9 Total Bilirubin 0.9 AST 38 H ALT 22 Alkaline Phosphatase 60 Creatine Kinase 101 CK-MB (CK-2) < 1.0 Troponin I 1.16 H* B-Natriuretic Peptide 47986.0 H Total Protein 6.7 Albumin 3.7 Urine Color Urine Appearance Urine pH Ur Specific Jermyn Urine Protein Urine Glucose (UA) Urine Ketones Urine Blood Urine Nitrite Urine Bilirubin Urine Urobilinogen Ur Leukocyte Esterase Urine Casts (Auto) U Epithel Cells (Auto) Urine Bacteria (Auto) Stool Occult Blood 10/10/18 10/10/18 10/10/18 06:15 11:00 12:24 WBC RBC Hgb Hct MCV MCH MCHC RDW Plt Count MPV Absolute Neuts (auto) Neutrophils % Neutrophils % (Manual) Band Neutrophils % Lymphocytes % Lymphocytes % (Manual) Monocytes % Monocytes % (Manual) Eosinophils % Eosinophils % (Manual) Basophils % Basophils % (Manual) Myelocytes % (Man) Promyelocytes % (Man) Blast Cells % (Manual) Nucleated RBC % Metamyelocytes Hypochromia Platelet Estimate Polychromasia Poikilocytosis Anisocytosis Microcytosis Macrocytosis Fragmented RBCs PTT (Actin FS) 33.0 Anticoagulation Therapy No Result Required. Puncture Site Right radial ABG pH 7.31 L ABG pCO2 at Pt Temp 44.2 ABG pO2 at Pt Temp 130 H ABG HCO3 21.5 L ABG O2 Sat (Measured) 98.6 H ABG O2 Content 14.7 L ABG Base Excess -4.1 L Moody Test Positive O2 Delivery Device No Result Required. Oxygen Flow Rate Yes Vent Mode No Result Required. Vent Rate No Result Required. Mechanical Rate No Result Required. Pressure Support Vent No Result Required. Sodium Potassium Chloride Carbon Dioxide Anion Gap BUN Creatinine Est GFR (CKD-EPI)AfAm Est GFR (CKD-EPI)NonAf POC Glucometer Random Glucose Lactic Acid Calcium Magnesium Total Bilirubin AST ALT Alkaline Phosphatase Creatine Kinase CK-MB (CK-2) Troponin I B-Natriuretic Peptide Total Protein Albumin Urine Color Urine Appearance Urine pH Ur Specific Jermyn Urine Protein Urine Glucose (UA) Urine Ketones Urine Blood Urine Nitrite Urine Bilirubin Urine Urobilinogen Ur Leukocyte Esterase Urine Casts (Auto) U Epithel Cells (Auto) Urine Bacteria (Auto) Stool Occult Blood Negative Active Medications Generic Name Dose Route Start Last Admin Trade Name Freq PRN Reason Stop Dose Admin Acetaminophen 650 mg 10/09/18 17:46 Tylenol - PO Q6H PRN Fever Or Pain Atorvastatin Calcium 20 mg 10/09/18 22:00 10/09/18 23:03 Lipitor - PO 20 mg HS CHANG Administration Carvedilol 6.25 mg 10/09/18 22:00 10/10/18 12:28 Coreg - PO Not Given BID [facility] Cholecalciferol 5,000 unit 10/10/18 10:00 10/10/18 12:29 Vitamin D3 - PO Not Given DAILY [facility] Enoxaparin Sodium 80 mg 10/10/18 11:15 10/10/18 11:39 Lovenox - SQ 80 mg BID CHANG Administration Fludrocortisone Acetate 0.05 mg 10/10/18 11:00 10/10/18 12:29 Florinef - PO Not Given DAILY CHANG Furosemide 40 mg 10/09/18 18:00 10/10/18 05:15 Lasix Injection - IVPUSH 40 mg BID@0600,1400 CHANG Administration Hydrocortisone Sodium Succinate 50 mg 10/10/18 11:00 10/10/18 11:39 Solu-Cortef - IVPB 50 mg Q6H-IV CHANG Administration Norepinephrine Bitartrate 8, 500 mls @ 9.33 mls/hr 10/10/18 07:45 10/10/18 07 :45 000 mcg/ Dextrose IV 0.24 mcg/kg/min ASDIR CHANG 75 mls/hr Administration Protocol 0.03 MCG/KG/MIN Vasopressin 50 units/ Sodium 100 mls @ 4 mls/hr 10/10/18 10:30 10/10/18 10:47 Chloride IVPB 2 units/hr ASDIR CHANG 4 mls/hr Administration Protocol 2 UNITS/HR Propofol 1,000,000 mcg in 100 mls @ 2.49 mls/hr 10/10/18 10:30 10/10/18 10:31 Diprivan - IVPB 10 mcg/kg/min TITR CHANG 4.98 mls/hr Administration Protocol 5 MCG/KG/MIN Potassium Chloride 10 meq in 100 mls @ 100 mls/hr 10/10/18 13:00 Potassium Chloride 10 Meq Premix Ivpb - IVPB 10/10/18 14:59 Q60M CHANG Lactobacillus Acidophilus 1 tab 10/10/18 10:00 10/10/18 12:28 Bacid - PO Not Given DAILY CHANG Pantoprazole Sodium 20 mg 10/09/18 22:00 10/10/18 12:28 Protonix - PO Not Given BID CHANG Ramipril 2.5 mg 10/10/18 10:00 10/10/18 12:28 Altace - PO Not Given DAILY CHANG Tolterodine Tartrate 2 mg 10/10/18 10:00 10/10/18 12:28 Detrol - PO Not Given DAILY CHANG ASSESSMENT/PLAN: 62 year old female with PMHx of NYHA III systolic CHF, sarcoidosis, HTN, HLD presents to the ed with 2 days of difficulty breathing with wheezing and initially admitted for acute on chronic CHF exacerbation is brought to ICU for acute decompensation of respiratory status with a temperature of 107 Shock Hyperpyrexia Acute respiratory distress Acute on Chronic CHF Exacerbation History of bilateral pulmonary embolism History of cerebral hemorrhage History of pulmonary sarcoidosis History of Afib AICD with complete heart block coma History of cerebral hemorrhage Acute metabolic encephalopathy - unclear whether this is septic etiology at present moment Fever of 107, put on cooling blanket and is now improving - 100.8 down from 107 Respiratory failure Acute respiratory distress -patient intubated for respiratory support using propofol/versed and glidescope with a 7.0 ET tube - vent settings: TV 400, FiO2 50%, PEEP 5, Rate 14 -History of pulmonary embolism- start lovenox -eliquis held -CXR ordered -hx pulmonary sarcoid according to her daughter -NPO, OG tube inserted -Protonix Cardiovascular -Undifferentiated Shock: likely combination of distributive, cardiogenic or obstructive vs septic -CVP 20, supporting picture of obstructive/cardiogenic -unclear compliance with eliquis at home, could be extension of PE but her daughter told that only mediation she took was eliquis. -empiric meropenem was started -continuing to diurese -levophed was started and increased to 25mcgs -start vasopressin at 2 -stress dose fludrocortisone 0.05 and hydrocortisone 50mg started -consider inotrope, home antihypertensives held -troponin key to ~1.16 today, continue to trend, no prior EKG changes, will repeat at 11 -seen by cardiology -repeat echo Possible sepsis Hyperpyrexia with fever 107 Cooling blankets placed and temp improving, 100.4 Meropenem started Lactic acid 3.3 and downtrending, repeating at 11am follow blood and urine cultures ID consultation Renal insufficiency -Acute kidney injury with creatinine 1.4, likely pre-renal in origin in the setting of shock -Dr. Lazo consult requested -will need goals of care meeting with daughter and son Visit type - Emergency Visit Emergency Visit: Yes ED Registration Date: 10/09/18 Care time: The patient presented to the Emergency Department on the above date and was hospitalized for further evaluation of their emergent condition. - New Patient This patient is new to me today: Yes Date on this admission: 10/10/18 - Critical Care Critical Care patient: Yes Total Critical Care Time (in minutes): 40 Critical Care Statement: The care of this patient involved high complexity decision making to prevent further life threatening deterioration of the patient 's condition and/or to evaluate & treat vital organ system(s) failure or risk of failure. - Discharge Referral Referred to [facility] Med [facility].: No
--- NOTE | 2018-10-10 13:43 | CON.ID ---
Consult - History of Present Illness History of Present Illness: 62 y.o. female with PMH of b/l PE diagnosed 09/10/18 on Eliquis, systolic CHF, s/ p PPM, tricuspid repair and bioprosthetic MV repair, Sarcoidosis, hemorrhagic CVA, COPD, HTN, HLD, GERD, s/p cholecystectomy and LT hip surgery presented for c/o progressive SOB over the past 2 wks with weakness. Pt has reportedly been noncompliant with taking Lasix and ? compliance with Eliquis. On presentation pt with tachypnea and temp of 99F but had to be transferred to the ICU for becoming less responsive, in acute respiratory distress, hypotension, rectal temp of 107.5F with lactic acid of 3.7 early this am. She is currently intubated , sedated, on vasopressor. Currently with loose BM, temp of 99.8F. Pt was on Keflex recently for UTI. Also had recent hospitalization for abd pain/diarrhea attributed to possible gastroenteritis. C. difficile testing was negative. 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[employer]) History of Recent Travel: No Home Medications - Allergies Allergies/Adverse Reactions: Allergies Allergy/AdvReac Type Severity Reaction Status Date / Time amoxicillin trihydrate AdvReac Severe Verified 09/09/18 07:02 [From Augmentin] potassium clavulanate AdvReac Severe Verified 09/09/18 07:02 [From Augmentin] - Home Medications Home Medications: Ambulatory Orders Tolterodine Tartrate 2 mg PO DAILY 02/15/15 Cholecalciferol (Vitamin D3) [Vitamin D3] 5,000 unit PO DAILY 03/08/15 Atorvastatin Ca [Lipitor] 20 mg PO HS 06/04/16 Carvedilol 6.25 mg PO BID 06/04/16 Omeprazole 20 mg PO BID 06/04/16 Ramipril 2.5 mg PO DAILY 06/04/16 Furosemide [Lasix] 20 mg PO DAILY 06/07/18 Albuterol 0.083% Nebulizer Sheeba [Ventolin 0.083% Nebulizer Soln -] 1 amp NEB PRN PRN 09/05/18 Albuterol Sulfate [Proair Hfa] 1 - 2 inh IH PRN 09/05/18 Prednisone 10 mg PO DAILY #30 tablet 09/16/18 Acetaminophen [Tylenol .Regular Strength -] 650 mg PO Q6H PRN tablet 09/23/18 Apixaban [Eliquis -] 5 mg PO BID tablet 09/23/18 Bethanechol Chloride [Bethanechol Chloride -] 5 mg PO TID tablet 09/23/18 Family Disease History - Family Disease History Family Disease History: Other: Mother ("Blood Cancer-Needed Transfusions") Review of Systems Unable to obtain ROS, reason: Pt intubated/sedated Physical Exam Vital Signs: Vital Signs Temperature 99.8 F H 10/10/18 10:00 Pulse Rate 82 10/10/18 10:47 Respiratory Rate 16 10/10/18 12:03 Blood Pressure 97/56 L 10/10/18 10:47 O2 Sat by Pulse Oximetry (%) 97 10/10/18 08:39 Constitutional: Yes: Other (on sedation/intubated) Eyes: Yes: Conjunctiva Clear Cardiovascular: Yes: Other (Paced rhythm) Respiratory: Yes: Diminished, Intubated Gastrointestinal: Yes: Normal Bowel Sounds, Soft, Abdomen, Obese Renal/: Yes: [place] Present Extremities: Yes: WNL Integumentary: Yes: WNL Neurological: Yes: Other (On propofol, sedated) Labs: CBC, BMP 10/10/18 05:00 10/10/18 05:00 Laboratory Tests 10/09/18 10/09/18 10/09/18 11:41 11:48 11:48 WBC RBC Hgb Hct MCV MCH MCHC RDW Plt Count MPV Absolute Neuts (auto) Neutrophils % Neutrophils % (Manual) Band Neutrophils % Lymphocytes % Lymphocytes % (Manual) Monocytes % Monocytes % (Manual) Eosinophils % Eosinophils % (Manual) Basophils % Basophils % (Manual) Myelocytes % (Man) Promyelocytes % (Man) Blast Cells % (Manual) Nucleated RBC % Metamyelocytes Hypochromia Platelet Estimate Polychromasia Poikilocytosis Anisocytosis Microcytosis Macrocytosis Fragmented RBCs PTT (Actin FS) Anticoagulation Therapy No Result Required. Puncture Site Right radial ABG pH 7.34 L ABG pCO2 at Pt Temp 36.4 ABG pO2 at Pt Temp 160 H ABG HCO3 19.0 L ABG O2 Sat (Measured) 99.1 H ABG O2 Content 15.2 ABG Base Excess -5.7 L Moody Test Positive Carboxyhemoglobin 0.9 Methemoglobin 0.2 O2 Delivery Device No Result Required. Oxygen Flow Rate 50 Vent Mode No Result Required. Vent Rate No Result Required. Mechanical Rate No Result Required. Pressure Support Vent No Result Required. Sodium Potassium Chloride Carbon Dioxide Anion Gap BUN Creatinine Est GFR (CKD-EPI)AfAm Est GFR (CKD-EPI)NonAf POC Glucometer Random Glucose Lactic Acid 3.7 H* Calcium Magnesium 2.1 Total Bilirubin AST ALT Alkaline Phosphatase Creatine Kinase CK-MB (CK-2) Troponin I 0.12 H B-Natriuretic Peptide Total Protein Albumin Urine Color Urine Appearance Urine pH Ur Specific [place] Urine Protein Urine Glucose (UA) Urine Ketones Urine Blood Urine Nitrite Urine Bilirubin Urine Urobilinogen Ur Leukocyte Esterase Urine Casts (Auto) U Epithel Cells (Auto) Urine Bacteria (Auto) Stool Occult Blood 10/09/18 10/09/18 10/09/18 11:48 11:48 19:00 WBC 10.3 H RBC 4.25 Hgb 11.5 Hct 36.6 D MCV 86.1 MCH 27.1 MCHC 31.4 L RDW 18.9 H Plt Count 199 D MPV 8.5 Absolute Neuts (auto) 9.0 H Neutrophils % 87.3 H Neutrophils % (Manual) Band Neutrophils % Lymphocytes % 7.3 L D Lymphocytes % (Manual) Monocytes % 4.6 Monocytes % (Manual) Eosinophils % 0.0 D Eosinophils % (Manual) Basophils % 0.8 Basophils % (Manual) Myelocytes % (Man) Promyelocytes % (Man) Blast Cells % (Manual) Nucleated RBC % 0 Metamyelocytes Hypochromia Platelet Estimate Polychromasia Poikilocytosis Anisocytosis Microcytosis Macrocytosis Fragmented RBCs PTT (Actin FS) Anticoagulation Therapy Puncture Site ABG pH ABG pCO2 at Pt Temp ABG pO2 at Pt Temp ABG HCO3 ABG O2 Sat (Measured) ABG O2 Content ABG Base Excess Moody Test Carboxyhemoglobin Methemoglobin O2 Delivery Device Oxygen Flow Rate Vent Mode Vent Rate Mechanical Rate Pressure Support Vent Sodium 137 Potassium 3.3 L Chloride 103 Carbon Dioxide 23 Anion Gap 11 BUN 12.0 Creatinine 1.0 Est GFR (CKD-EPI)AfAm 70.91 Est GFR (CKD-EPI)NonAf 61.19 POC Glucometer Random Glucose 215 H Lactic Acid Calcium 9.2 Magnesium Total Bilirubin 0.6 AST 15 ALT 17 Alkaline Phosphatase 65 Creatine Kinase CK-MB (CK-2) Troponin I B-Natriuretic Peptide 33949.9 H Total Protein 7.1 Albumin 4.1 Urine Color Yellow Urine Appearance Clear Urine pH 5.5 D Ur Specific [place] 1.018 Urine Protein 1+ H Urine Glucose (UA) Negative Urine Ketones 1+ H Urine Blood 3+ H Urine Nitrite Negative Urine Bilirubin Negative Urine Urobilinogen 0.2 Ur Leukocyte Esterase Negative Urine Casts (Auto) 33 U Epithel Cells (Auto) 6.1 Urine Bacteria (Auto) 15.9 Stool Occult Blood 10/09/18 10/09/18 10/10/18 19:25 19:25 04:35 WBC RBC Hgb Hct MCV MCH MCHC RDW Plt Count MPV Absolute Neuts (auto) Neutrophils % Neutrophils % (Manual) Band Neutrophils % Lymphocytes % Lymphocytes % (Manual) Monocytes % Monocytes % (Manual) Eosinophils % Eosinophils % (Manual) Basophils % Basophils % (Manual) Myelocytes % (Man) Promyelocytes % (Man) Blast Cells % (Manual) Nucleated RBC % Metamyelocytes Hypochromia Platelet Estimate Polychromasia Poikilocytosis Anisocytosis Microcytosis Macrocytosis Fragmented RBCs PTT (Actin FS) Anticoagulation Therapy Puncture Site ABG pH ABG pCO2 at Pt Temp ABG pO2 at Pt Temp ABG HCO3 ABG O2 Sat (Measured) ABG O2 Content ABG Base Excess Moody Test Carboxyhemoglobin Methemoglobin O2 Delivery Device Oxygen Flow Rate Vent Mode Vent Rate Mechanical Rate Pressure Support Vent Sodium Potassium Chloride Carbon Dioxide Anion Gap BUN Creatinine Est GFR (CKD-EPI)AfAm Est GFR (CKD-EPI)NonAf POC Glucometer 181 Random Glucose Lactic Acid Calcium Magnesium Total Bilirubin AST ALT Alkaline Phosphatase Creatine Kinase 61 CK-MB (CK-2) Troponin I 0.54 H B-Natriuretic Peptide 52517.2 H Total Protein Albumin Urine Color Urine Appearance Urine pH Ur Specific [place] Urine Protein Urine Glucose (UA) Urine Ketones Urine Blood Urine Nitrite Urine Bilirubin Urine Urobilinogen Ur Leukocyte Esterase Urine Casts (Auto) U Epithel Cells (Auto) Urine Bacteria (Auto) Stool Occult Blood 10/10/18 10/10/18 10/10/18 04:36 05:00 05:00 WBC 11.6 H RBC 3.89 Hgb 10.5 L Hct 33.1 MCV 85.1 MCH 27.0 MCHC 31.7 L RDW 18.7 H Plt Count 160 MPV 9.0 Absolute Neuts (auto) 11.2 H Neutrophils % 96.1 H Neutrophils % (Manual) 95.9 H Band Neutrophils % 0.0 Lymphocytes % 2.3 L D Lymphocytes % (Manual) 3.1 L D Monocytes % 1.4 L Monocytes % (Manual) 1 L D Eosinophils % 0.0 Eosinophils % (Manual) 0.0 Basophils % 0.2 Basophils % (Manual) 0.0 Myelocytes % (Man) 0 Promyelocytes % (Man) 0 Blast Cells % (Manual) 0 Nucleated RBC % 0 Metamyelocytes 0 Hypochromia 0 Platelet Estimate Normal Polychromasia 0 Poikilocytosis 0 Anisocytosis 1+ Microcytosis 1+ Macrocytosis 0 Fragmented RBCs 1+ PTT (Actin FS) Anticoagulation Therapy Puncture Site Right radial ABG pH 7.41 ABG pCO2 at Pt Temp 34.5 L ABG pO2 at Pt Temp 93.9 ABG HCO3 21.6 L ABG O2 Sat (Measured) 97.0 ABG O2 Content 14.8 L ABG Base Excess -2.0 Moody Test Positive Carboxyhemoglobin Methemoglobin O2 Delivery Device Bipap Oxygen Flow Rate Yes Vent Mode S/t Vent Rate 18 Mechanical Rate Pressure Support Vent 12/5 Sodium 139 Potassium 3.5 Chloride 104 Carbon Dioxide 24 Anion Gap 11 BUN 15.5 Creatinine 1.4 H Est GFR (CKD-EPI)AfAm 47.21 Est GFR (CKD-EPI)NonAf 40.74 POC Glucometer Random Glucose 174 H Lactic Acid Calcium 8.5 Magnesium 1.9 Total Bilirubin 0.9 AST 38 H ALT 22 Alkaline Phosphatase 60 Creatine Kinase 101 CK-MB (CK-2) < 1.0 Troponin I 1.16 H* B-Natriuretic Peptide 92679.0 H Total Protein 6.7 Albumin 3.7 Urine Color Urine Appearance Urine pH Ur Specific [place] Urine Protein Urine Glucose (UA) Urine Ketones Urine Blood Urine Nitrite Urine Bilirubin Urine Urobilinogen Ur Leukocyte Esterase Urine Casts (Auto) U Epithel Cells (Auto) Urine Bacteria (Auto) Stool Occult Blood 10/10/18 10/10/18 10/10/18 05:00 06:15 11:00 WBC RBC Hgb Hct MCV MCH MCHC RDW Plt Count MPV Absolute Neuts (auto) Neutrophils % Neutrophils % (Manual) Band Neutrophils % Lymphocytes % Lymphocytes % (Manual) Monocytes % Monocytes % (Manual) Eosinophils % Eosinophils % (Manual) Basophils % Basophils % (Manual) Myelocytes % (Man) Promyelocytes % (Man) Blast Cells % (Manual) Nucleated RBC % Metamyelocytes Hypochromia Platelet Estimate Polychromasia Poikilocytosis Anisocytosis Microcytosis Macrocytosis Fragmented RBCs PTT (Actin FS) 33.0 Anticoagulation Therapy Puncture Site ABG pH ABG pCO2 at Pt Temp ABG pO2 at Pt Temp ABG HCO3 ABG O2 Sat (Measured) ABG O2 Content ABG Base Excess Moody Test Carboxyhemoglobin Methemoglobin O2 Delivery Device Oxygen Flow Rate Vent Mode Vent Rate Mechanical Rate Pressure Support Vent Sodium Potassium Chloride Carbon Dioxide Anion Gap BUN Creatinine Est GFR (CKD-EPI)AfAm Est GFR (CKD-EPI)NonAf POC Glucometer Random Glucose Lactic Acid 3.3 H* Calcium Magnesium Total Bilirubin AST ALT Alkaline Phosphatase Creatine Kinase CK-MB (CK-2) Troponin I B-Natriuretic Peptide Total Protein Albumin Urine Color Urine Appearance Urine pH Ur Specific [place] Urine Protein Urine Glucose (UA) Urine Ketones Urine Blood Urine Nitrite Urine Bilirubin Urine Urobilinogen Ur Leukocyte Esterase Urine Casts (Auto) U Epithel Cells (Auto) Urine Bacteria (Auto) Stool Occult Blood Negative 10/10/18 12:24 WBC RBC Hgb Hct MCV MCH MCHC RDW Plt Count MPV Absolute Neuts (auto) Neutrophils % Neutrophils % (Manual) Band Neutrophils % Lymphocytes % Lymphocytes % (Manual) Monocytes % Monocytes % (Manual) Eosinophils % Eosinophils % (Manual) Basophils % Basophils % (Manual) Myelocytes % (Man) Promyelocytes % (Man) Blast Cells % (Manual) Nucleated RBC % Metamyelocytes Hypochromia Platelet Estimate Polychromasia Poikilocytosis Anisocytosis Microcytosis Macrocytosis Fragmented RBCs PTT (Actin FS) Anticoagulation Therapy No Result Required. Puncture Site Right radial ABG pH 7.31 L ABG pCO2 at Pt Temp 44.2 ABG pO2 at Pt Temp 130 H ABG HCO3 21.5 L ABG O2 Sat (Measured) 98.6 H ABG O2 Content 14.7 L ABG Base Excess -4.1 L Moody Test Positive Carboxyhemoglobin Methemoglobin O2 Delivery Device No Result Required. Oxygen Flow Rate Yes Vent Mode No Result Required. Vent Rate No Result Required. Mechanical Rate No Result Required. Pressure Support Vent No Result Required. Sodium Potassium Chloride Carbon Dioxide Anion Gap BUN Creatinine Est GFR (CKD-EPI)AfAm Est GFR (CKD-EPI)NonAf POC Glucometer Random Glucose Lactic Acid Calcium Magnesium Total Bilirubin AST ALT Alkaline Phosphatase Creatine Kinase CK-MB (CK-2) Troponin I B-Natriuretic Peptide Total Protein Albumin Urine Color Urine Appearance Urine pH Ur Specific [place] Urine Protein Urine Glucose (UA) Urine Ketones Urine Blood Urine Nitrite Urine Bilirubin Urine Urobilinogen Ur Leukocyte Esterase Urine Casts (Auto) U Epithel Cells (Auto) Urine Bacteria (Auto) Stool Occult Blood Blood cultures neg 24hr Imaging - Results Chest X-ray: Report Reviewed Problem List - Problems (1) GERD (gastroesophageal reflux disease) Code(s): K21.9 - GASTRO-ESOPHAGEAL REFLUX DISEASE WITHOUT ESOPHAGITIS (3) HTN (hypertension) Code(s): I10 - ESSENTIAL (PRIMARY) HYPERTENSION (4) Pacemaker Code(s): Z95.0 - PRESENCE OF CARDIAC PACEMAKER (5) Respiratory failure with hypoxia Code(s): J96.91 - RESPIRATORY FAILURE, UNSPECIFIED WITH HYPOXIA (6) Shock Code(s): R57.9 - SHOCK, UNSPECIFIED (7) Acute on chronic diastolic (congestive) heart failure Code(s): I50.33 - ACUTE ON CHRONIC DIASTOLIC (CONGESTIVE) HEART FAILURE (8) Hyperlipidemia Code(s): E78.5 - HYPERLIPIDEMIA, UNSPECIFIED Qualifiers: Hyperlipidemia type: pure hypercholesterolemia Qualified Code(s): E78.00 - Pure hypercholesterolemia, unspecified; E78.0 - Pure hypercholesterolemia (9) Pulmonary embolism Code(s): I26.99 - OTHER PULMONARY EMBOLISM WITHOUT ACUTE COR PULMONALE (11) Sarcoidosis Code(s): D86.9 - SARCOIDOSIS, UNSPECIFIED (12) Status post tricuspid valve repair Code(s): Z98.890 - OTHER SPECIFIED POSTPROCEDURAL STATES Assessment/Plan 62 y.o. female with PMH of b/l PE diagnosed 09/10/18 on Eliquis, systolic CHF, s/ p PPM, tricuspid repair and bioprosthetic MV repair, Sarcoidosis, hemorrhagic CVA, COPD, HTN, HLD, GERD, s/p cholecystectomy and LT hip surgery initially presented for c/o progressive SOB over the past 2 wks with weakness. Has been reportedly noncompliant with taking Lasix but taking Eliquis. Was transferred to the ICU for respiratory failure requiring intubation, hypotension, hyperthermia. Shock - likely Septic shock in addition to Cardiogenic Acute hypoxemic respiratory failure s/p intubation Hyperthermia B/L PE - r/o new embolism Sarcoidosis Hx of hemorrhagic CVA s/p AICD s/p tricuspid valve repair, bioprosthetic MV replacement Hx of UTI recently on antibiotics ---continue Meropenem, given Vancomycin x 1 dose, will continue and adjust as needed based on renal function ---send sputum culture, urinary ags for legionella -- follow up blood culture results - negative 24hr -- monitor temperature trend -- if noted to have multiple episodes of loose BMs send stool for C.diff testing -- for CTA if stable -- rest of care per ICU Will follow Thank you All recent hospital records/labs/imaging results reviewed cc time: 60 min
[2018-10-10] MEDS: KCL 10 MEQ IVPB 10 MEQ/100 ML INFUS.BAG IVPB SCH ×2 (13:45→14:51)
[2018-10-10] MEDS ORDERED: HYDROCORTISONE SOD SUCCINATE 100 MG/2 ML VIAL IVPB SCH (15:00)
[2018-10-10] MEDS: MEROPENEM 1 GM in DEXTROSE 5%-WATER 100 ML IVPB SCH (17:48)
[2018-10-10] MEDS: VANCOMYCIN 1,000 MG in DEXTROSE 5%-WATER - 250 ML IVPB SCH (20:29)
[2018-10-10] MEDS: ATORVASTATIN CA 20 MG TABLET (FP) PO SCH (21:45)
[2018-10-11] MEDS ORDERED: DEXTROSE 5%-WATER 100 ML IVPB ONE ×3 (01:20→17:27)
[2018-10-11] MEDS ORDERED: MEROPENEM 1 GM VIAL (RESTRICTED TO ID) IVPB ONE ×3 (01:20→17:27)
[2018-10-11] MEDS: MEROPENEM 1 GM in DEXTROSE 5%-WATER 100 ML IVPB SCH ×3 (02:14→17:31)
[2018-10-11] MEDS: HYDROCORTISONE SOD SUCCINATE 100 MG/2 ML VIAL IVPB SCH ×4 (02:15→20:52)
[2018-10-11] MEDS: FUROSEMIDE 40 MG/4 ML INJECTABLE VIAL IVPUSH SCH ×2 (05:57→14:46)
[2018-10-11 06:34] LABS: HEMATOCRIT 29.8 % (32.4-45.2); HEMOGLOBIN 9.7 GM/dL (10.7-15.3); MCH 27.3 pg (25.7-33.7); MCHC 32.7 g/dl (32.0-36.0); MEAN CELL VOLUME 83.5 fl (80-96); PLATELET COUNT 80 K/MM3 (134-434); RBC 3.57 M/mm3 (3.60-5.2); RDW 18.2 % (11.6-15.6); WHITE BLOOD COUNT 10.3 K/mm3 (4.0-10.0)
[2018-10-11 06:58] LABS: ALBUMIN 3.3 g/dl (3.4-5.0); BILIRUBIN,TOTAL 1.5 mg/dL (0.2-1); BLOOD UREA NITROGEN 16.6 mg/dL (7-18); MAGNESIUM 1.8 mg/dL (1.8-2.4); N-TERMINAL BNP 31609.4 pg/ml (5-125); TOT PROT 5.8 g/dl (6.4-8.2)
[2018-10-11] MEDS: KCL 10 MEQ IVPB 10 MEQ/100 ML INFUS.BAG IVPB SCH ×6 (07:25→21:34)
[2018-10-11 07:55] LABS: POTASSIUM 2.7 mmol/L (3.5-5.1)
[2018-10-11] MEDS: VANCOMYCIN 1,000 MG in DEXTROSE 5%-WATER - 250 ML IVPB SCH (08:17)
[2018-10-11] MEDS: NOREPINEPHRINE BITARTRATE 8,000 MCG in DEXTROSE 5%-WATER - 492 ML IV SCH ×2 (08:18→21:49)
--- NOTE | 2018-10-11 08:29 | PN ---
Physical Exam: SUBJECTIVE: Patient seen and examined at bedside this morning. Patient's sedation weaned off; patient responding to commands and patient moving all four extremities, however remains tachypnic, with abdominal breathing and and nasal flaring -did not tolerate CPAP trial. Remains on intubated, on levophed, and norepinepherine, hydrocortisone, fludrocortisone. Propofol reinstated for vent synchrony. OBJECTIVE: Vital Signs Period Temp Pulse Resp BP Sys/Zayas Pulse Ox Last 24 Hr 98.2 F-100.8 F 80-104 14-44 95-127/52-90 97-100 GENERAL: Intubated, sedated on Propofol. HEENT: NC/AT. PERRL, sclera anicteric. Dry mucous membranes. LUNGS: Mechanical breath sounds with diffuse rhonchi bilaterally. HEART: Irregular rate and rhythm. Normal S1 and S2. ABDOMEN: Soft, distended. Hypoactive bowel sounds x4 quadrants. No rebound tenderness ellicited. EXTREMITIES: 1+ radial, dorsalis pedis pulses bilaterally, warm. 2+ edema bilateral lower extremities. NEUROLOGICAL: Patient is sedated; moves all four extremities, responsive to commands when taken off sedation. Laboratory Results - last 24 hr 10/09/18 10/10/18 10/10/18 19:25 05:00 06:15 WBC RBC Hgb Hct MCV MCH MCHC RDW Plt Count MPV Neutrophils % (Manual) 95.9 H Band Neutrophils % 0.0 Lymphocytes % (Manual) 3.1 L D Monocytes % (Manual) 1 L D Eosinophils % (Manual) 0.0 Basophils % (Manual) 0.0 Myelocytes % (Man) 0 Promyelocytes % (Man) 0 Blast Cells % (Manual) 0 Metamyelocytes 0 Hypochromia 0 Platelet Estimate Normal Polychromasia 0 Poikilocytosis 0 Anisocytosis 1+ Microcytosis 1+ Macrocytosis 0 Fragmented RBCs 1+ PTT (Actin FS) Anticoagulation Therapy Puncture Site ABG pH ABG pCO2 at Pt Temp ABG pO2 at Pt Temp ABG HCO3 ABG O2 Sat (Measured) ABG O2 Content ABG Base Excess Moody Test O2 Delivery Device Oxygen Flow Rate Vent Mode Vent Rate Mechanical Rate Pressure Support Vent Sodium Potassium Chloride Carbon Dioxide Anion Gap BUN Creatinine Est GFR (CKD-EPI)AfAm Est GFR (CKD-EPI)NonAf Random Glucose Lactic Acid Calcium Phosphorus Magnesium Total Bilirubin AST ALT Alkaline Phosphatase Creatine Kinase 61 Troponin I 0.54 H B-Natriuretic Peptide Total Protein Albumin Stool Occult Blood Negative 10/10/18 10/10/18 10/10/18 11:00 12:24 13:05 WBC RBC Hgb Hct MCV MCH MCHC RDW Plt Count MPV Neutrophils % (Manual) Band Neutrophils % Lymphocytes % (Manual) Monocytes % (Manual) Eosinophils % (Manual) Basophils % (Manual) Myelocytes % (Man) Promyelocytes % (Man) Blast Cells % (Manual) Metamyelocytes Hypochromia Platelet Estimate Polychromasia Poikilocytosis Anisocytosis Microcytosis Macrocytosis Fragmented RBCs PTT (Actin FS) 33.0 Anticoagulation Therapy No Result Required. Puncture Site Right radial ABG pH 7.31 L ABG pCO2 at Pt Temp 44.2 ABG pO2 at Pt Temp 130 H ABG HCO3 21.5 L ABG O2 Sat (Measured) 98.6 H ABG O2 Content 14.7 L ABG Base Excess -4.1 L Moody Test Positive O2 Delivery Device No Result Required. Oxygen Flow Rate Yes Vent Mode No Result Required. Vent Rate No Result Required. Mechanical Rate No Result Required. Pressure Support Vent No Result Required. Sodium Potassium Chloride Carbon Dioxide Anion Gap BUN Creatinine Est GFR (CKD-EPI)AfAm Est GFR (CKD-EPI)NonAf Random Glucose Lactic Acid Calcium Phosphorus Magnesium Total Bilirubin AST ALT Alkaline Phosphatase Creatine Kinase 119 Troponin I 0.80 H* B-Natriuretic Peptide Total Protein Albumin Stool Occult Blood 10/10/18 10/10/18 10/11/18 13:05 19:30 05:35 WBC RBC Hgb Hct MCV MCH MCHC RDW Plt Count MPV Neutrophils % (Manual) Band Neutrophils % Lymphocytes % (Manual) Monocytes % (Manual) Eosinophils % (Manual) Basophils % (Manual) Myelocytes % (Man) Promyelocytes % (Man) Blast Cells % (Manual) Metamyelocytes Hypochromia Platelet Estimate Polychromasia Poikilocytosis Anisocytosis Microcytosis Macrocytosis Fragmented RBCs PTT (Actin FS) Anticoagulation Therapy Puncture Site ABG pH ABG pCO2 at Pt Temp ABG pO2 at Pt Temp ABG HCO3 ABG O2 Sat (Measured) ABG O2 Content ABG Base Excess Moody Test O2 Delivery Device Oxygen Flow Rate Vent Mode Vent Rate Mechanical Rate Pressure Support Vent Sodium 131 L Potassium 2.7 L* Chloride 89 L Carbon Dioxide 29 Anion Gap 14 BUN 16.6 Creatinine 1.0 Est GFR (CKD-EPI)AfAm 70.91 Est GFR (CKD-EPI)NonAf 61.19 Random Glucose 225 H Lactic Acid 2.5 H* Calcium 8.0 L Phosphorus 4.0 Magnesium 1.8 Total Bilirubin 1.5 H AST 258 H ALT 247 H Alkaline Phosphatase 66 Creatine Kinase Troponin I 0.51 H B-Natriuretic Peptide 56285.4 H Total Protein 5.8 L Albumin 3.3 L Stool Occult Blood 10/11/18 05:35 WBC 10.3 H RBC 3.57 L Hgb 9.7 L Hct 29.8 L MCV 83.5 MCH 27.3 MCHC 32.7 RDW 18.2 H Plt Count 80 L D MPV 10.0 D Neutrophils % (Manual) Band Neutrophils % Lymphocytes % (Manual) Monocytes % (Manual) Eosinophils % (Manual) Basophils % (Manual) Myelocytes % (Man) Promyelocytes % (Man) Blast Cells % (Manual) Metamyelocytes Hypochromia Platelet Estimate Polychromasia Poikilocytosis Anisocytosis Microcytosis Macrocytosis Fragmented RBCs PTT (Actin FS) Anticoagulation Therapy Puncture Site ABG pH ABG pCO2 at Pt Temp ABG pO2 at Pt Temp ABG HCO3 ABG O2 Sat (Measured) ABG O2 Content ABG Base Excess Moody Test O2 Delivery Device Oxygen Flow Rate Vent Mode Vent Rate Mechanical Rate Pressure Support Vent Sodium Potassium Chloride Carbon Dioxide Anion Gap BUN Creatinine Est GFR (CKD-EPI)AfAm Est GFR (CKD-EPI)NonAf Random Glucose Lactic Acid Calcium Phosphorus Magnesium Total Bilirubin AST ALT Alkaline Phosphatase Creatine Kinase Troponin I B-Natriuretic Peptide Total Protein Albumin Stool Occult Blood Active Medications Generic Name Dose Route Start Last Admin Trade Name Freq PRN Reason Stop Dose Admin Acetaminophen 650 mg 10/09/18 17:46 Tylenol - PO Q6H PRN Fever Or Pain Atorvastatin Calcium 20 mg 10/09/18 22:00 10/10/18 21:45 Lipitor - PO 20 mg HS CHANG Administration Carvedilol 6.25 mg 10/09/18 22:00 10/10/18 21:45 Coreg - PO 6.25 mg BID CHANG Administration Cholecalciferol 5,000 unit 10/10/18 10:00 10/10/18 12:29 Vitamin D3 - PO Not Given DAILY [facility] Enoxaparin Sodium 80 mg 10/10/18 11:15 10/10/18 21:45 Lovenox - SQ 80 mg BID CAHNG Administration Fludrocortisone Acetate 0.05 mg 10/10/18 11:00 10/10/18 12:29 Florinef - PO Not Given DAILY CHANG Furosemide 40 mg 10/09/18 18:00 10/11/18 05:57 Lasix Injection - IVPUSH 40 mg BID@0600,1400 CHANG Administration Hydrocortisone Sodium Succinate 50 mg 10/10/18 11:00 10/11/18 08:17 Solu-Cortef - IVPB 50 mg Q6H-IV CHANG Administration Norepinephrine Bitartrate 8, 500 mls @ 9.33 mls/hr 10/10/18 07:45 10/11/18 08 :18 000 mcg/ Dextrose IV Not Given ASDIR CHANG Protocol 0.03 MCG/KG/MIN Vasopressin 50 units/ Sodium 100 mls @ 4 mls/hr 10/10/18 10:30 10/10/18 10:47 Chloride IVPB 2 units/hr ASDIR CHANG 4 mls/hr Administration Protocol 2 UNITS/HR Propofol 1,000,000 mcg in 100 mls @ 2.49 mls/hr 10/10/18 10:30 10/11/18 06:20 Diprivan - IVPB 20 mcg/kg/min TITR CHANG 9.961 mls/hr Titration Protocol 5 MCG/KG/MIN Vancomycin HCl 1,000 mg/ 250 mls @ 166.667 mls/hr 10/10/18 20:00 10/11/18 08: 17 Dextrose IVPB 166.667 mls/hr Q12H CHANG Administration Protocol Meropenem 1 gm/ Dextrose 100 mls @ 200 mls/hr 10/10/18 18:00 10/11/18 02:14 IVPB 200 mls/hr Q8H-IV CHANG Administration Potassium Chloride 10 meq in 100 mls @ 100 mls/hr 10/11/18 07:15 10/11/18 08: 18 Potassium Chloride 10 Meq Premix Ivpb - IVPB 10/11/18 10:14 100 mls/hr Q60M CHANG Administration Lactobacillus Acidophilus 1 tab 10/10/18 10:00 10/10/18 12:28 Bacid - PO Not Given DAILY CHANG Pantoprazole Sodium 20 mg 10/09/18 22:00 10/10/18 21:45 Protonix - PO 20 mg BID CHANG Administration Ramipril 2.5 mg 10/10/18 10:00 10/10/18 12:28 Altace - PO Not Given DAILY CHANG Tolterodine Tartrate 2 mg 10/10/18 10:00 10/10/18 12:28 Detrol - PO Not Given DAILY [facility] ASSESSMENT/PLAN: Septic shock Hyperpyrexia Acute respiratory distress History of bilateral pulmonary embolism History of cerebral hemorrhage History of pulmonary sarcoidosis History of Afib AICD with complete heart block Neurologic History of cerebral hemorrhage Acute metabolic encephalopathy -Likely secondary to septic shock -Sedation with Propofol -Hyperpyrexia -patient now off cooling blanket, monitor rectal temperature -Head CT reveals no acute intracranial pathology Pulmonary Acute respiratory distress -Patient is intubated. Tidal volume 400cc, FiO2 50%, RR 14, PEEP 5. -History of pulmonary embolism- however documented not compliant with home Eliquis. -Started on therapeutic dose Lovenox 80mg subq BID for anticoagulation -CTA chest negative for acute pulmonary embolism Cardiovascular AICD with complete heart block Troponinemia concerning for ACS -Troponin 0.12 -> 0.54 -> 1.16 -> 0.80 -Cardiology recommendations (Dr. Cerna) appreciated. -Patient anticoagulated with Lovenox 80mg subq BID -Follow cardiac ECHO -Norepinepherine currently at 5 -Vasopressin currently at 2 -Hydrocortisone 50mg IV Q6 hours -Fludrocortisone 0.05mg PO daily Gastrointestinal -NPO while patient is intubated -Protonix 40mg IV BID prophylaxis Infectious disease Septic shock; uncertain source -Blood cultures growing gram positive cocci in clusters ?contaminant -Follow urine cultures -Urine for legionella, pneumonia -Lactic acid peaked at 3.7 -ID consult (Dr. Mehta) appreciated -Vancomycin 1 gram Q12 hours -Meropenem 1 gram IV Q8 hours FEN -IV normal saline bolus, caution not to overload -Hypokalemia, repleted. Follow CMP -NPO Prophylaxis -Patient is on Lovenox 80mg subq BID Disposition: We will continue to follow the patient. Thank you for this consultative opportunity. Visit type - Emergency Visit Emergency Visit: Yes ED Registration Date: 10/09/18 Care time: The patient presented to the Emergency Department on the above date and was hospitalized for further evaluation of their emergent condition. - New Patient This patient is new to me today: No - Critical Care Critical Care patient: Yes Total Critical Care Time (in minutes): 36 Critical Care Statement: The care of this patient involved high complexity decision making to prevent further life threatening deterioration of the patient 's condition and/or to evaluate & treat vital organ system(s) failure or risk of failure. - Discharge Referral Referred to [facility] Med P.C.: No ATTENDING PHYSICIAN STATEMENT I saw and evaluated the patient. I reviewed the resident's note and discussed the case with the resident. I agree with the resident's findings and plan as documented. SUBJECTIVE: OBJECTIVE: ASSESSMENT AND PLAN:
[2018-10-11] MEDS ORDERED: PT OWN MED DRAWER 7, Y5N ONE (09:18)
[2018-10-11] MEDS: FLUDROCORTISONE ACETATE 0.1 MG TABLET (FP) PO SCH (09:21)
[2018-10-11] MEDS: LACTOBACILLUS ACIDOPHILUS 1 TABLET PO SCH (09:23)
[2018-10-11] MEDS: RAMIPRIL 2.5 MG CAPSULE (FP) PO SCH (09:23)
[2018-10-11] MEDS: CARVEDILOL 3.125 MG TABLET (FP) PO SCH ×2 (09:23→21:13)
[2018-10-11] MEDS: CHOLECALCIFEROL (VIT D3) 1,000 UNIT (25 MCG) TABLET PO SCH (09:24)
[2018-10-11] MEDS: TOLTERODINE TARTRATE 2 MG TABLET PO SCH (09:24)
--- NOTE | 2018-10-11 09:36 | PN ---
Progress Note, Physician History of Present Illness: The patient is a 62-year-old female, with a past medical history of reported NYHA III systolic CHF (though normal LVEF on 06/2016 ALETHEA, with moderately severe MR) and TR, with ?subsequent TV repair and bioprosthetic MV replacement, , recent b/l PE on eliquis, sarcoidosis, HTN, HLD, COPD, GERD, ? hemorrhagic CVA (by hx, though CT head 2019 shows no pathology), who presents to the ED with shortness of breath, for 2 weeks. Patients aunt is at bedside and reports that she has not taken her Lasix in over 2 weeks. Pt and aunt report she has been taking the eliquis. Denies any chest pain or palpitations. Denies any weakness, dizziness, or changes in strength or sensation. No recent travel or immobility. The patient denied any fevers, chills, cough, nausea, vomiting, diarrhea, or abdominal pain. After admission to the floor, she deteriorated, and was found to have high rectal temperature; respiratory failure-->intubation and tranfer to [facility]. TNI, initially 0.12 yesterday am, increased to 0.54 several hours later. Allergies: Amoxicillin trihydrate, potassium clavulanate. Surgical History: Tricuspid repair and mitral valve replacement (?2017); ?CABG, Cholecystectomy, LT hip sx. PCP: Dr. Dennis - Current Medication List Current Medications: Active Medications Acetaminophen (Ofirmev Injection -) 1,000 mg IVPB Q6H PRN PRN Reason: FEVER Atorvastatin Calcium (Lipitor -) 20 mg PO HS [facility] Last Admin: 10/10/18 21:45 Dose: 20 mg Carvedilol (Coreg -) 6.25 mg PO BID CHANG Last Admin: 10/11/18 09:23 Dose: Not Given Cholecalciferol (Vitamin D3 -) 5,000 unit PO DAILY CHANG Last Admin: 10/11/18 09:24 Dose: 5,000 unit Enoxaparin Sodium (Lovenox -) 80 mg SQ BID CHANG Last Admin: 10/10/18 21:45 Dose: 80 mg Fludrocortisone Acetate (Florinef -) 0.05 mg PO DAILY [facility] Last Admin: 10/11/18 09:21 Dose: 0.05 mg Furosemide (Lasix Injection -) 40 mg IVPUSH BID@0600,1400 CHANG Last Admin: 10/11/18 05:57 Dose: 40 mg Hydrocortisone Sodium Succinate (Solu-Cortef -) 50 mg IVPB Q6H-IV CHANG Last Admin: 10/11/18 08:17 Dose: 50 mg Norepinephrine Bitartrate 8, (000 mcg/ Dextrose) 500 mls @ 9.33 mls/hr IV ASDIR CHANG; Protocol Last Admin: 10/11/18 08:18 Dose: Not Given Vasopressin 50 units/ Sodium (Chloride) 100 mls @ 4 mls/hr IVPB ASDIR CHANG; Protocol Last Admin: 10/10/18 10:47 Dose: 2 units/hr, 4 mls/hr Propofol (Diprivan -) 1,000,000 mcg in 100 mls @ 2.49 mls/hr IVPB TITR CHANG; Protocol Last Titration: 10/11/18 06:20 Dose: 20 mcg/kg/min, 9.961 mls/hr Meropenem 1 gm/ Dextrose 100 mls @ 200 mls/hr IVPB Q8H-IV CHANG Last Admin: 10/11/18 02:14 Dose: 200 mls/hr Potassium Chloride (Potassium Chloride 10 Meq Premix Ivpb -) 10 meq in 100 mls @ 100 mls/hr IVPB Q60M CHANG Stop: 10/11/18 10:14 Last Admin: 10/11/18 09:24 Dose: 100 mls/hr Vancomycin HCl (Vancomycin (Pre-Docked)) 1,000 mg in 250 mls @ 166.667 mls/hr IVPB Q12H CHANG; Protocol Lactobacillus Acidophilus (Bacid -) 1 tab PO DAILY [facility]ANG Last Admin: 10/11/18 09:23 Dose: 1 tab Pantoprazole Sodium (Protonix -) 20 mg PO BID CHANG Last Admin: 10/10/18 21:45 Dose: 20 mg Ramipril (Altace -) 2.5 mg PO DAILY [facility] Last Admin: 10/11/18 09:23 Dose: Not Given Tolterodine Tartrate (Detrol -) 2 mg PO DAILY [facility] Last Admin: 10/11/18 09:24 Dose: Not Given - Objective Vital Signs: Vital Signs Temperature 100.8 F H 10/11/18 06:00 Pulse Rate 104 H 10/11/18 08:27 Respiratory Rate 17 10/11/18 08:27 Blood Pressure 105/70 10/11/18 06:00 O2 Sat by Pulse Oximetry (%) 100 10/11/18 08:27 Eyes: Yes: WNL, Conjunctiva Clear, EOM Intact HENT: Yes: WNL, Atraumatic, Normocephalic Neck: Yes: WNL, Supple, Trachea Midline Cardiovascular: Yes: WNL, Regular Rate and Rhythm Respiratory: Yes: Diminished Gastrointestinal: Yes: WNL, Normal Bowel Sounds Genitourinary: Yes: WNL Musculoskeletal: Yes: WNL Extremities: Yes: WNL Edema: No Integumentary: Yes: WNL Neurological: Yes: WNL, Alert, Oriented ...Motor Strength: WNL Psychiatric: Yes: WNL Labs: CBC, BMP 10/11/18 05:35 10/11/18 05:35 Assessment/Plan (2) Shock Assessment/Plan: etiologies may be multiple, and include septic, cardiogenic, respiratory compromise related to sarcoid;, ? new PE. TNI with mild elevation without corresponding CK elevation; likely demand ischemia from mulitiple sources, including CHF, sepsis, ischemia, pulmonic failure. Rectal temp to 107 F; mild elevation in WBC. CXR: enlarged heart; congestiive chenges; markedly elevated BNP. Presently on high doses of both norepinephrine and vasopressin. Start inotrope (eg milrinone) if hemodynamic compromise continues despite present regimen. Limit fluids, given present fluid overload; f/u BUn/Cr, Is and Os, daily weight. Electrolytes: eep K 4-4.5; Mg 2-2.3, PO4 2.5-4.9. For CTA chest. ECHO worsening ef 25% Serial TNI - peak 0.8 Code(s): R57.9 - SHOCK, UNSPECIFIED (3) HTN (hypertension) Code(s): I10 - ESSENTIAL (PRIMARY) HYPERTENSION (4) Respiratory failure with hypoxia Code(s): J96.91 - RESPIRATORY FAILURE, UNSPECIFIED WITH HYPOXIA (5) Intracranial hemorrhage Code(s): I62.9 - NONTRAUMATIC INTRACRANIAL HEMORRHAGE, UNSPECIFIED (6) Presence of single implantable cardioverter-defibrillator (ICD) Code(s): Z95.810 - PRESENCE OF AUTOMATIC (IMPLANTABLE) CARDIAC DEFIBRILLATOR (7) Pulmonary embolism Code(s): I26.99 - OTHER PULMONARY EMBOLISM WITHOUT ACUTE COR PULMONALE (9) Sarcoidosis Code(s): D86.9 - SARCOIDOSIS, UNSPECIFIED Assessment/Plan CC time time spent 36 minutes.
[2018-10-11] MEDS: ACETAMINOPHEN 1000 MG/100 ML VIAL (NON FORMULARY) IVPB PRN ×2 (10:05→17:31)
--- NOTE | 2018-10-11 11:27 | PN ---
Progress Note, Physician Chief Complaint: Pt was transfered to ICU overnight for hypoxic respiratory failute and temp > 105. Intubated and sedated on vasoavtive agents currently History of Present Illness: 62 year old female with PMHx of NYHA III systolic CHF, sarcoidosis, HTN, HLD presents to the ed with 2 days of difficulty breathing with wheezing. According to her friend who takes care of her she refuses to take her lasix x 2 weeks and lives in a very hot apartment without any air conditioning. She been taking her other medications including take her Eliquis. According to friend, she's been eating less and less & stopped her lasix bc she left it made her nauseous She denies fever, chills chest pain, abdominal pain. Recently found to have blood in her urine according to friend 1 week ago in PCP office Patient is a poor historian. - Current Medication List Current Medications: Active Medications Acetaminophen (Ofirmev Injection -) 1,000 mg IVPB Q6H PRN PRN Reason: FEVER Last Admin: 10/11/18 10:05 Dose: 1,000 mg Atorvastatin Calcium (Lipitor -) 20 mg PO HS [facility] Last Admin: 10/10/18 21:45 Dose: 20 mg Carvedilol (Coreg -) 6.25 mg PO BID [facility] Last Admin: 10/11/18 09:23 Dose: Not Given Cholecalciferol (Vitamin D3 -) 5,000 unit PO DAILY [facility] Last Admin: 10/11/18 09:24 Dose: 5,000 unit Enoxaparin Sodium (Lovenox -) 80 mg SQ BID [facility] Last Admin: 10/10/18 21:45 Dose: 80 mg Fludrocortisone Acetate (Florinef -) 0.05 mg PO DAILY [facility] Last Admin: 10/11/18 09:21 Dose: 0.05 mg Furosemide (Lasix Injection -) 40 mg IVPUSH BID@0600,1400 [facility] Last Admin: 10/11/18 05:57 Dose: 40 mg Hydrocortisone Sodium Succinate (Solu-Cortef -) 50 mg IVPB Q6H-IV [facility]ANG Last Admin: 10/11/18 08:17 Dose: 50 mg Norepinephrine Bitartrate 8, (000 mcg/ Dextrose) 500 mls @ 9.33 mls/hr IV ASDIR [facility]; Protocol Last Admin: 10/11/18 08:18 Dose: Not Given Vasopressin 50 units/ Sodium (Chloride) 100 mls @ 4 mls/hr IVPB ASDIR [facility]; Protocol Last Admin: 10/10/18 10:47 Dose: 2 units/hr, 4 mls/hr Propofol (Diprivan -) 1,000,000 mcg in 100 mls @ 2.49 mls/hr IVPB TITR [facility]; Protocol Last Titration: 10/11/18 06:20 Dose: 20 mcg/kg/min, 9.961 mls/hr Meropenem 1 gm/ Dextrose 100 mls @ 200 mls/hr IVPB Q8H-IV CHANG Last Admin: 10/11/18 10:05 Dose: 200 mls/hr Vancomycin HCl (Vancomycin (Pre-Docked)) 1,000 mg in 250 mls @ 166.667 mls/hr IVPB Q12H [facility]; Protocol Lactobacillus Acidophilus (Bacid -) 1 tab PO DAILY [facility] Last Admin: 10/11/18 09:23 Dose: 1 tab Pantoprazole Sodium (Protonix -) 20 mg PO BID [facility] Last Admin: 10/10/18 21:45 Dose: 20 mg Ramipril (Altace -) 2.5 mg PO DAILY [facility] Last Admin: 10/11/18 09:23 Dose: Not Given Tolterodine Tartrate (Detrol -) 2 mg PO DAILY [facility] Last Admin: 10/11/18 09:24 Dose: Not Given - Objective Vital Signs: Vital Signs Temperature 100.8 F H 10/11/18 06:00 Pulse Rate 104 H 10/11/18 08:27 Respiratory Rate 33 H 10/11/18 11:23 Blood Pressure 105/70 10/11/18 06:00 O2 Sat by Pulse Oximetry (%) 99 10/11/18 11:23 Constitutional: Yes: Well Nourished, Other (sedated and intubated) Eyes: Yes: WNL, Conjunctiva Clear, EOM Intact HENT: Yes: WNL, Atraumatic, Normocephalic Neck: Yes: WNL, Supple, Trachea Midline Cardiovascular: Yes: WNL, Other (orally intubated) Respiratory: Yes: Intubated, Rhonchi (scattered) Gastrointestinal: Yes: WNL, Normal Bowel Sounds, Abdomen, Obese, Other (OGT to LIWS) Genitourinary: Yes: Barclay Present Breast(s): Yes: WNL Musculoskeletal: Yes: Other (sedated) Extremities: Yes: Delayed Capillary Refill Edema: Yes Edema: LUE: 1+, RUE: 1+, LLE: 2+, RLE: 2+ Peripheral Pulses WNL: No Peripheral Pulses: Left Radial: 1+, Right Radial: 1+, Left Doralis Pedis: 1+, Right Dorsalis Pedis: 1+, Left Femoral: 1+, Right Femoral: 1+ Integumentary: Yes: WNL Neurological: Yes: Other (intubated and sedated) Psychiatric: Yes: Other (intubated and sedated) Labs: CBC, BMP 10/11/18 05:35 10/11/18 05:35 Problem List - Problems (1) GERD (gastroesophageal reflux disease) Assessment/Plan: orally intubated with OGT c/w IV PPI Code(s): K21.9 - GASTRO-ESOPHAGEAL REFLUX DISEASE WITHOUT ESOPHAGITIS (2) Pacemaker Assessment/Plan: AV dual paced rhythm with multiple PVCs Code(s): Z95.0 - PRESENCE OF CARDIAC PACEMAKER (3) Prophylactic measure Assessment/Plan: FEN orally intubated with OGT monitor electrolytes NPO, PPI DVT lovenox 80mh sq q12 Dispo maiantin in ICU full code discharge planning Code(s): Z29.9 - ENCOUNTER FOR PROPHYLACTIC MEASURES, UNSPECIFIED (4) Acute on chronic diastolic (congestive) heart failure Assessment/Plan: non-compliant with diuretic therapy c/w lasix 40mg IV q 12H if BP tolerates cardiology consultation apprecited Code(s): I50.33 - ACUTE ON CHRONIC DIASTOLIC (CONGESTIVE) HEART FAILURE (5) Hyperlipidemia Assessment/Plan: c/w atorvastatin whn no longer NPO Code(s): E78.5 - HYPERLIPIDEMIA, UNSPECIFIED Qualifiers: Hyperlipidemia type: pure hypercholesterolemia Qualified Code(s): E78.00 - Pure hypercholesterolemia, unspecified; E78.0 - Pure hypercholesterolemia (7) Sarcoidosis Code(s): D86.9 - SARCOIDOSIS, UNSPECIFIED (8) Status post tricuspid valve repair Code(s): Z98.890 - OTHER SPECIFIED POSTPROCEDURAL STATES (9) Pulmonary embolism Assessment/Plan: recent BL PE on eliquis repeat CTA-questionable compliance and possibility of recurrent PE even on Eliquis however unlikely Code(s): I26.99 - OTHER PULMONARY EMBOLISM WITHOUT ACUTE COR PULMONALE (10) Respiratory failure with hypoxia Assessment/Plan: orally intubated Code(s): J96.91 - RESPIRATORY FAILURE, UNSPECIFIED WITH HYPOXIA (11) DENISHA (acute kidney injury) Code(s): N17.9 - ACUTE KIDNEY FAILURE, UNSPECIFIED (12) Shock Assessment/Plan: -Blood cultures growing gram positive cocci in clusters ?contaminant -Follow urine cultures -Urine for legionella, pneumonia oending - trend Lactic acid -ID consulttation appreciated -c/w Vancomycin & Meropenem Code(s): R57.9 - SHOCK, UNSPECIFIED (13) Troponin I above reference range Assessment/Plan: Troponin 0.12 -> 0.54 -> 1.16 -> 0.80 -Cardiology consultationi appreciated. -Patient anticoagulated with Lovenox 80mg subq BID -Norepinepherine & Vasopressin gtt to maintain MAP>60 -Hydrocortisone 50mg IV Q6 hours -Fludrocortisone 0.05mg PO daily Code(s): R74.8 - ABNORMAL LEVELS OF OTHER SERUM ENZYMES (14) Metabolic encephalopathy Assessment/Plan: Likely secondary to septic shock -Sedation with Propofol -Head CT reveals no acute intracranial pathology -interruption of IV sedation as per ICU protocol Code(s): G93.41 - METABOLIC ENCEPHALOPATHY (15) Admitted to intensive care unit Assessment/Plan: appreciate ICU level of care Code(s): Z78.9 - OTHER SPECIFIED HEALTH STATUS Visit type - Emergency Visit Emergency Visit: Yes ED Registration Date: 10/09/18 Care time: The patient presented to the Emergency Department on the above date and was hospitalized for further evaluation of their emergent condition. - New Patient This patient is new to me today: No - Critical Care Critical Care patient: Yes Total Critical Care Time (in minutes): 35 Critical Care Statement: The care of this patient involved high complexity decision making to prevent further life threatening deterioration of the patient 's condition and/or to evaluate & treat vital organ system(s) failure or risk of failure. - Discharge Referral Referred to [facility] Med [facility]C.: No
[2018-10-11] MEDS ORDERED: VASOPRESSIN 20 UNITS/ML VIAL IV ONE (11:50)
[2018-10-11] MEDS: PROPOFOL 1,000,000 MCG/100 ML VIAL IVPB SCH (11:56)
[2018-10-11] MEDS: ENOXAPARIN NA (PORCINE) 80 MG/0.8 ML DISP.SYRIN SQ SCH ×2 (11:56→21:13)
[2018-10-11] MEDS: VASOPRESSIN 50 UNITS in SODIUM CHLORIDE 97.5 ML IVPB SCH (11:57)
--- NOTE | 2018-10-11 12:11 | PN ---
Teaching Attending Note Name of Resident: Marc Good ATTENDING PHYSICIAN STATEMENT I saw and evaluated the patient. I reviewed the resident's note and discussed the case with the resident. I agree with the resident's findings and plan as documented. SUBJECTIVE: Pt seen and examined in the ICU. Remains intubated, sedated on levophed and vasopressin gtts. Did not tolerate CPAP/PS off sedation. OBJECTIVE: Vital Signs Period Temp Pulse Resp BP Sys/Zayas Pulse Ox Last 24 Hr 98.2 F-100.8 F 80-107 14-44 82-127/39-82 99-100 Intake & Output 10/08/18 10/09/18 10/10/18 10/11/18 23:59 23:59 23:59 23:59 Intake Total 200 1244.0 943.6 Output Total 4300 350 Balance 200 -3056.0 593.6 Weight 83.007 kg 93.5 kg 83.9 kg Gen: intubated, sedated Heart: RRR Lung: scattered rhonchi Abd: soft, nontender Ext: no edema CBC, BMP 10/11/18 05:35 10/11/18 05:35 Active Medications Acetaminophen (Ofirmev Injection -) 1,000 mg IVPB Q6H PRN PRN Reason: FEVER Last Admin: 10/11/18 10:05 Dose: 1,000 mg Atorvastatin Calcium (Lipitor -) 20 mg PO HS [facility] Last Admin: 10/10/18 21:45 Dose: 20 mg Carvedilol (Coreg -) 6.25 mg PO BID [facility] Last Admin: 10/11/18 09:23 Dose: Not Given Cholecalciferol (Vitamin D3 -) 5,000 unit PO DAILY [facility] Last Admin: 10/11/18 09:24 Dose: 5,000 unit Enoxaparin Sodium (Lovenox -) 80 mg SQ BID [facility] Last Admin: 10/11/18 11:56 Dose: 80 mg Fludrocortisone Acetate (Florinef -) 0.05 mg PO DAILY [facility] Last Admin: 10/11/18 09:21 Dose: 0.05 mg Furosemide (Lasix Injection -) 40 mg IVPUSH BID@0600,1400 [facility] Last Admin: 10/11/18 05:57 Dose: 40 mg Hydrocortisone Sodium Succinate (Solu-Cortef -) 50 mg IVPB Q6H-IV [facility] Last Admin: 10/11/18 08:17 Dose: 50 mg Norepinephrine Bitartrate 8, (000 mcg/ Dextrose) 500 mls @ 9.33 mls/hr IV [facility]; Protocol Last Admin: 10/11/18 08:18 Dose: Not Given Vasopressin 50 units/ Sodium (Chloride) 100 mls @ 4 mls/hr IVPB [facility]; Protocol Last Admin: 10/11/18 11:57 Dose: 2 units/hr, 4 mls/hr Propofol (Diprivan -) 1,000,000 mcg in 100 mls @ 2.49 mls/hr IVPB TITR [facility]; Protocol Last Admin: 10/11/18 11:56 Dose: 10 mcg/kg/min, 4.98 mls/hr Meropenem 1 gm/ Dextrose 100 mls @ 200 mls/hr IVPB Q8H-IV [facility] Last Admin: 10/11/18 10:05 Dose: 200 mls/hr Vancomycin HCl (Vancomycin (Pre-Docked)) 1,000 mg in 250 mls @ 166.667 mls/hr IVPB Q12H [facility]; Protocol Lactobacillus Acidophilus (Bacid -) 1 tab PO DAILY [facility] Last Admin: 10/11/18 09:23 Dose: 1 tab Pantoprazole Sodium (Protonix -) 20 mg PO BID [facility] Last Admin: 10/10/18 21:45 Dose: 20 mg Ramipril (Altace -) 2.5 mg PO DAILY [facility] Last Admin: 10/11/18 09:23 Dose: Not Given Tolterodine Tartrate (Detrol -) 2 mg PO DAILY [facility] Last Admin: 10/11/18 09:24 Dose: Not Given ASSESSMENT AND PLAN: Acute Hypoxic Respiratory Failure Shock likely Septic h/o Bilateral Pulmonary Emboli Pulmonary Sarcoidosis Atrial Fibrillation s/p PPM Thrombocytopenia h/o Intracranial Hemorrhage - continue antibiotics - f/u cultures - IVF to keep CVP 8-12 - titrate pressors to maintain MAP >65 - continue empiric stress dose steroids - rate control - continue anticoagulation - echocardiogram - replete lytes - enteral feeds - daily sedation vacations to assess mental status - spontaneous breathing trials as tolerated when mental status improved - DVT/GI prophylaxis - continue ICU monitoring critical care time spent in reviewing chart, evaluating patient and formulating plan 35 min
--- NOTE | 2018-10-11 14:05 | CONSULT ---
Consult Consult Specialty:: Nephrology Reason for Consultation:: DENISHA - History of Present Illness Chief Complaint: shortness of breath History of Present Illness: Pt is a 62 year old female with pmhx of chf, bilateral PE on eliquis, HTN, HLD, COPD, GERD, and CVA who presents to the ER with shortness of breath. She had stopped her lasix a few weeks ago. She developed worsening resp failure and was intubated. I was called to evaluate her for elevated creatinine. Her potassium is improved today. She was also hypotensive. Pts is intubated and unable to give history. 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: CVA (hemmorhagic) Cardio/Vascular: Yes: CHF, HTN Pulmonary: Yes: COPD, Other (Sarcoid) Gastrointestinal: Yes: GERD ...: No - Past Surgical History Past Surgical History: Yes: Cholecystectomy, Permanent Pacemaker, Valve Replacement (MVR, TV repair) - Alcohol/Substance Use Hx Alcohol Use: No - Smoking History Smoking history: Former smoker Have you smoked in the past 12 months: No Aproximately how many cigarettes per day: 0 If you are a former smoker, when did you quit?: 36 YRS AGO - Social History 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[employer]) History of Recent Travel: No Home Medications - Allergies Allergies/Adverse Reactions: Allergies Allergy/AdvReac Type Severity Reaction Status Date / Time amoxicillin trihydrate AdvReac Severe Verified 09/09/18 07:02 [From Augmentin] potassium clavulanate AdvReac Severe Verified 09/09/18 07:02 [From Augmentin] - Home Medications Home Medications: Ambulatory Orders Tolterodine Tartrate 2 mg PO DAILY 02/15/15 Cholecalciferol (Vitamin D3) [Vitamin D3] 5,000 unit PO DAILY 03/08/15 Atorvastatin Ca [Lipitor] 20 mg PO HS 06/04/16 Carvedilol 6.25 mg PO BID 06/04/16 Omeprazole 20 mg PO BID 06/04/16 Ramipril 2.5 mg PO DAILY 06/04/16 Furosemide [Lasix] 20 mg PO DAILY 06/07/18 Albuterol 0.083% Nebulizer Sheeba [Ventolin 0.083% Nebulizer Soln -] 1 amp NEB PRN PRN 09/05/18 Albuterol Sulfate [Proair Hfa] 1 - 2 inh IH PRN 09/05/18 Prednisone 10 mg PO DAILY #30 tablet 09/16/18 Acetaminophen [Tylenol .Regular Strength -] 650 mg PO Q6H PRN tablet 09/23/18 Apixaban [Eliquis -] 5 mg PO BID tablet 09/23/18 Bethanechol Chloride [Bethanechol Chloride -] 5 mg PO TID tablet 09/23/18 Family Disease History - Family Disease History Family Disease History: Other: Mother ("Blood Cancer-Needed Transfusions") Review of Systems Unable to obtain ROS, reason: pt intubated Physical Exam Vital Signs: Vital Signs Temperature 100.6 F H 10/11/18 10:00 Pulse Rate 107 H 10/11/18 11:57 Respiratory Rate 33 H 10/11/18 11:23 Blood Pressure 82/39 L 10/11/18 11:57 O2 Sat by Pulse Oximetry (%) 99 10/11/18 11:23 Constitutional: Yes: Calm Eyes: Yes: Conjunctiva Clear Cardiovascular: Yes: S1, S2 Respiratory: Yes: Intubated, Mechanically Ventilated Gastrointestinal: Yes: Soft, Abdomen, Obese Renal/: Yes: Barclay Present Edema: Yes Edema: LUE: 2+, RUE: 2+, LLE: 2+, RLE: 2+ Neurological: Yes: Lethargy Labs: CBC, BMP 10/11/18 05:35 10/11/18 05:35 Problem List - Problems (1) DENISHA (acute kidney injury) Code(s): N17.9 - ACUTE KIDNEY FAILURE, UNSPECIFIED (2) Respiratory failure Code(s): J96.90 - RESPIRATORY FAILURE, UNSP, UNSP W HYPOXIA OR HYPERCAPNIA (3) CHF exacerbation Code(s): I50.9 - HEART FAILURE, UNSPECIFIED Qualifiers: Heart failure type: unspecified Qualified Code(s): I50.9 - Heart failure, unspecified Assessment/Plan Current Medications Generic Name Dose Route Start Last Admin Trade Name Freq PRN Reason Stop Dose Admin Acetaminophen 1,000 mg 10/11/18 08:47 10/11/18 10:05 Ofirmev Injection - IVPB 1,000 mg Q6H PRN Administration FEVER Atorvastatin Calcium 20 mg 10/09/18 22:00 10/10/18 21:45 Lipitor - PO 20 mg HS [facility] Administration Carvedilol 6.25 mg 10/09/18 22:00 10/11/18 09:23 Coreg - PO Not Given BID [facility] Cholecalciferol 5,000 unit 10/10/18 10:00 10/11/18 09:24 Vitamin D3 - PO 5,000 unit DAILY [facility] Administration Enoxaparin Sodium 80 mg 10/10/18 11:15 10/11/18 11:56 Lovenox - SQ 80 mg BID [facility] Administration Fludrocortisone Acetate 0.05 mg 10/10/18 11:00 10/11/18 09:21 Florinef - PO 0.05 mg DAILY [facility] Administration Furosemide 40 mg 10/09/18 18:00 10/11/18 05:57 Lasix Injection - IVPUSH 40 mg BID@0600,1400 [facility] Administration Hydrocortisone Sodium Succinate 50 mg 10/10/18 11:00 10/11/18 08:17 Solu-Cortef - IVPB 50 mg Q6H-IV [facility] Administration Norepinephrine Bitartrate 8, 500 mls @ 9.33 mls/hr 10/10/18 07:45 10/11/18 08 :18 000 mcg/ Dextrose IV Not Given [facility] Protocol 0.03 MCG/KG/MIN Vasopressin 50 units/ Sodium 100 mls @ 4 mls/hr 10/10/18 10:30 10/11/18 11:57 Chloride IVPB 2 units/hr [facility] 4 mls/hr Administration Protocol 2 UNITS/HR Propofol 1,000,000 mcg in 100 mls @ 2.49 mls/hr 10/10/18 10:30 10/11/18 11:56 Diprivan - IVPB 10 mcg/kg/min TITR [facility] 4.98 mls/hr Administration Protocol 5 MCG/KG/MIN Meropenem 1 gm/ Dextrose 100 mls @ 200 mls/hr 10/10/18 18:00 10/11/18 10:05 IVPB 200 mls/hr Q8H-IV [facility] Administration Vancomycin HCl 1,000 mg in 250 mls @ 166.667 mls/hr 10/11/18 20:00 Vancomycin (Pre-Docked) IVPB Q12H [facility] Protocol Lactobacillus Acidophilus 1 tab 10/10/18 10:00 10/11/18 09:23 Bacid - PO 1 tab DAILY [facility] Administration Pantoprazole Sodium 40 mg 10/11/18 12:15 Protonix Iv IVPUSH DAILY [facility] Ramipril 2.5 mg 10/10/18 10:00 10/11/18 09:23 Altace - PO Not Given DAILY [facility] Tolterodine Tartrate 2 mg 10/10/18 10:00 10/11/18 09:24 Detrol - PO Not Given DAILY [facility] Impression 1. DENISHA 2. resp failure 3. chf 4. hx PE 5. hx htn 6. pulm sarcoid 7. shock 8. a-fib Plan - hold all bp meds as bp is low - cont diuretics - agree with steroids - vent support - discussed with ICU team - production zone leader is improved - follow up ct scan results
--- NOTE | 2018-10-11 14:09 | PN ---
Progress Note, Physician History of Present Illness: continues to be intubated and sedated daughter in room - Current Medication List Current Medications: Active Medications Acetaminophen (Ofirmev Injection -) 1,000 mg IVPB Q6H PRN PRN Reason: FEVER Last Admin: 10/11/18 10:05 Dose: 1,000 mg Atorvastatin Calcium (Lipitor -) 20 mg PO HS [facility] Last Admin: 10/10/18 21:45 Dose: 20 mg Carvedilol (Coreg -) 6.25 mg PO BID [facility] Last Admin: 10/11/18 09:23 Dose: Not Given Cholecalciferol (Vitamin D3 -) 5,000 unit PO DAILY [facility] Last Admin: 10/11/18 09:24 Dose: 5,000 unit Enoxaparin Sodium (Lovenox -) 80 mg SQ BID [facility] Last Admin: 10/11/18 11:56 Dose: 80 mg Fludrocortisone Acetate (Florinef -) 0.05 mg PO DAILY [facility] Last Admin: 10/11/18 09:21 Dose: 0.05 mg Furosemide (Lasix Injection -) 40 mg IVPUSH BID@0600,1400 [facility] Last Admin: 10/11/18 05:57 Dose: 40 mg Hydrocortisone Sodium Succinate (Solu-Cortef -) 50 mg IVPB Q6H-IV [facility] Last Admin: 10/11/18 08:17 Dose: 50 mg Norepinephrine Bitartrate 8, (000 mcg/ Dextrose) 500 mls @ 9.33 mls/hr IV [facility]; Protocol Last Admin: 10/11/18 08:18 Dose: Not Given Vasopressin 50 units/ Sodium (Chloride) 100 mls @ 4 mls/hr IVPB [facility]; Protocol Last Admin: 10/11/18 11:57 Dose: 2 units/hr, 4 mls/hr Propofol (Diprivan -) 1,000,000 mcg in 100 mls @ 2.49 mls/hr IVPB TITR [facility]; Protocol Last Admin: 10/11/18 11:56 Dose: 10 mcg/kg/min, 4.98 mls/hr Meropenem 1 gm/ Dextrose 100 mls @ 200 mls/hr IVPB Q8H-IV [facility] Last Admin: 10/11/18 10:05 Dose: 200 mls/hr Vancomycin HCl (Vancomycin (Pre-Docked)) 1,000 mg in 250 mls @ 166.667 mls/hr IVPB Q12H [facility]; Protocol Lactobacillus Acidophilus (Bacid -) 1 tab PO DAILY [facility] Last Admin: 10/11/18 09:23 Dose: 1 tab Pantoprazole Sodium (Protonix Iv) 40 mg IVPUSH DAILY [facility] Ramipril (Altace -) 2.5 mg PO DAILY [facility] Last Admin: 10/11/18 09:23 Dose: Not Given Tolterodine Tartrate (Detrol -) 2 mg PO DAILY [facility] Last Admin: 10/11/18 09:24 Dose: Not Given - Objective Vital Signs: Vital Signs Temperature 100.6 F H 10/11/18 10:00 Pulse Rate 107 H 10/11/18 11:57 Respiratory Rate 33 H 10/11/18 11:23 Blood Pressure 82/39 L 10/11/18 11:57 O2 Sat by Pulse Oximetry (%) 99 10/11/18 11:23 Constitutional: Yes: Other Cardiovascular: Yes: S1, S2, Other (on pressors) Respiratory: Yes: Intubated, Mechanically Ventilated Gastrointestinal: Yes: Soft, Hypoactive Bowel Sounds Genitourinary: Yes: Barclay Present Musculoskeletal: Yes: WNL Extremities: Yes: WNL Neurological: Yes: Other Labs: CBC, BMP 10/11/18 05:35 10/11/18 05:35 Assessment/Plan Problem List - Problems (1) GERD (gastroesophageal reflux disease) Code(s): K21.9 - GASTRO-ESOPHAGEAL REFLUX DISEASE WITHOUT ESOPHAGITIS (3) HTN (hypertension) Code(s): I10 - ESSENTIAL (PRIMARY) HYPERTENSION (4) Pacemaker Code(s): Z95.0 - PRESENCE OF CARDIAC PACEMAKER (5) Respiratory failure with hypoxia Code(s): J96.91 - RESPIRATORY FAILURE, UNSPECIFIED WITH HYPOXIA (6) Shock Code(s): R57.9 - SHOCK, UNSPECIFIED (7) Acute on chronic diastolic (congestive) heart failure Code(s): I50.33 - ACUTE ON CHRONIC DIASTOLIC (CONGESTIVE) HEART FAILURE (8) Hyperlipidemia Code(s): E78.5 - HYPERLIPIDEMIA, UNSPECIFIED Qualifiers: Hyperlipidemia type: pure hypercholesterolemia Qualified Code(s): E78.00 - Pure hypercholesterolemia, unspecified; E78.0 - Pure hypercholesterolemia (9) Pulmonary embolism Code(s): I26.99 - OTHER PULMONARY EMBOLISM WITHOUT ACUTE COR PULMONALE (11) Sarcoidosis Code(s): D86.9 - SARCOIDOSIS, UNSPECIFIED (12) Status post tricuspid valve repair Code(s): Z98.890 - OTHER SPECIFIED POSTPROCEDURAL STATES Assessment/Plan 62 y.o. female with PMH of b/l PE diagnosed 09/10/18 on Eliquis, systolic CHF, s/ p PPM, tricuspid repair and bioprosthetic MV repair, Sarcoidosis, hemorrhagic CVA, COPD, HTN, HLD, GERD, s/p cholecystectomy and LT hip surgery initially presented for c/o progressive SOB over the past 2 wks with weakness. Has been reportedly noncompliant with taking Lasix but taking Eliquis. Was transferred to the ICU for respiratory failure requiring intubation, hypotension, hyperthermia. Shock - likely Septic shock in addition to Cardiogenic Acute hypoxemic respiratory failure s/p intubation Hyperthermia B/L PE - r/o new embolism Sarcoidosis Hx of hemorrhagic CVA s/p AICD s/p tricuspid valve repair, bioprosthetic MV replacement Hx of UTI recently on antibiotics patient still intubated clear cut source still not present plan check for myoglobinuria continue abx for now await for all cx repeat blood cx tomorrow supportive echo cardio on board rest as per icu 40 min
[2018-10-11] MEDS ORDERED: SODIUM CHLORIDE 500 ML IV STA (14:41)
[2018-10-11] MEDS: PANTOPRAZOLE SODIUM 40 MG VIAL IVPUSH SCH (14:45)
[2018-10-11 16:33] LABS: BLOOD UREA NITROGEN 21.4 mg/dL (7-18); CALCIUM 7.3 mg/dL (8.5-10.1); CREATININE 1.2 mg/dL (0.55-1.3)
--- NOTE | 2018-10-11 16:41 | ECHO ---
Name: NANCY BRAVO Exam:Adult Echocardiogram Study Date: 10/11/2018 01:02 PM Age: 62 yrs Reason For Study: s/p AK Height: 60 in Weight: 183 lb BSA: 1.8 m2 BP: 98/60 mmHg MMode/2D Measurements & Calculations IVSd: 0.96 cm Ao root diam: 3.2 cm LVIDd: 5.1 cm LA dimension: 3.4 cm LVIDs: 3.4 cm ACS: 1.4 cm LVPWd: 1.1 cm IVSs: 1.6 cm LVPWs: 1.3 cm EDV(Teich): 124.1 ml ESV(Teich): 48.3 ml Doppler Measurements & Calculations MV V2 max: 215.7 cm/sec MV P1/2t max anna: 234.6 cm/sec MV max P.6 mmHg MV P1/2t: 216.0 msec MV V2 mean: 142.3 cm/sec MV mean P.1 mmHg MVA(P1/2t): 1.0 cm2 MV V2 VTI: 76.1 cm MV dec slope: 318.0 cm/sec2 Ao V2 max: 138.8 cm/sec MR max anna: 357.0 cm/sec Ao max P.7 mmHg MR max P.1 mmHg Ao V2 mean: 84.9 cm/sec Ao mean P.7 mmHg Ao V2 VTI: 17.9 cm Procedure The study was technically difficult with many images being suboptimal in quality. Left Ventricle The left ventricle is mildly dilated. Left ventricular systolic function is severely reduced. Ejectio n Fraction = 20-25%. Right Ventricle The right ventricle is normal size. There is a pacemaker lead in the right ventricle. The right ventr icular systolic function is mildly reduced. Atria Normal left and right atrial size and function. Mitral Valve There is a bioprosthetic mitral valve. The mitral valve is not well visualized. There is mild to mode rate mitral regurgitation. Tricuspid Valve The tricuspid valve is not well visualized. Aortic Valve The aortic valve opens well. The aortic valve is not well visualized. No aortic regurgitation is pres ent. Pulmonic Valve The pulmonic valve is not well visualized. Great Vessels The aortic root is normal size. Pericardium/Pleura There is no pericardial effusion. Interpretation Summary In comparison to previous interpretable study performed -05/2018, LV systolic function has decrease d. There is a bioprosthetic mitral valve. The left ventricle is mildly dilated. Ejection Fraction = 20-25%. The right ventricular systolic function is mildly reduced. In comparison to previous interpretable study performed , LV systolic function has decrease d. There is mild to moderate mitral regurgitation. Jimbo Moreland MD 10/11/2018 04:40 PM
[2018-10-11] MEDS ORDERED: NOREPINEPHRINE BITARTRATE 4 MG/4 ML ML IV ONE (17:45)
[2018-10-11] MEDS: VANCOMYCIN 1 GRAM (PRE-DOCKED) 1,000 MG/250 ML BAG IVPB SCH (20:51)
[2018-10-11] MEDS: ATORVASTATIN CA 20 MG TABLET (FP) PO SCH (21:13)
[2018-10-12] MEDS ORDERED: MEROPENEM 1 GM VIAL (RESTRICTED TO ID) IVPB ONE ×2 (00:48→08:38)
[2018-10-12] MEDS ORDERED: DEXTROSE 5%-WATER 100 ML IVPB ONE ×2 (00:48→08:38)
[2018-10-12] MEDS: PROPOFOL 1,000,000 MCG/100 ML VIAL IVPB SCH ×3 (00:51→21:03)
[2018-10-12] MEDS: ACETAMINOPHEN 1000 MG/100 ML VIAL (NON FORMULARY) IVPB PRN ×2 (01:15→16:09)
[2018-10-12] MEDS: MEROPENEM 1 GM in DEXTROSE 5%-WATER 100 ML IVPB SCH ×3 (02:13→18:14)
[2018-10-12] MEDS: HYDROCORTISONE SOD SUCCINATE 100 MG/2 ML VIAL IVPB SCH ×4 (02:18→20:22)
[2018-10-12] MEDS: FUROSEMIDE 40 MG/4 ML INJECTABLE VIAL IVPUSH SCH ×2 (05:37→13:00)
[2018-10-12 06:39] LABS: HEMATOCRIT 27.8 % (32.4-45.2); HEMOGLOBIN 9.1 GM/dL (10.7-15.3); MCH 27.3 pg (25.7-33.7); MCHC 32.8 g/dl (32.0-36.0); MEAN CELL VOLUME 83.3 fl (80-96); MEAN PLT VOLUME 11.1 fl (7.5-11.1); PLATELET COUNT 95 K/MM3 (134-434); RBC 3.34 M/mm3 (3.60-5.2); RDW 18.7 % (11.6-15.6); WHITE BLOOD COUNT 12.5 K/mm3 (4.0-10.0)
[2018-10-12] MEDS: NOREPINEPHRINE BITARTRATE 8,000 MCG in DEXTROSE 5%-WATER - 492 ML IV SCH ×2 (07:11→21:39)
[2018-10-12 07:14] LABS: ALBUMIN 3.1 g/dl (3.4-5.0); BLOOD UREA NITROGEN 27.7 mg/dL (7-18); CALCIUM 7.7 mg/dL (8.5-10.1); CREATININE 1.2 mg/dL (0.55-1.3); MAGNESIUM 1.9 mg/dL (1.8-2.4); PHOSPHOROUS 3.6 mg/dL (2.5-4.9); POTASSIUM 3.6 mmol/L (3.5-5.1); TOT PROT 5.8 g/dl (6.4-8.2)
[2018-10-12] MEDS: VANCOMYCIN 1 GRAM (PRE-DOCKED) 1,000 MG/250 ML BAG IVPB SCH ×2 (08:07→20:20)
[2018-10-12] MEDS ORDERED: PT OWN MED DRAWER 7, Y5N ONE (08:38)
[2018-10-12] MEDS: LACTOBACILLUS ACIDOPHILUS 1 TABLET PO SCH (09:02)
[2018-10-12] MEDS: CHOLECALCIFEROL (VIT D3) 1,000 UNIT (25 MCG) TABLET PO SCH (09:02)
[2018-10-12] MEDS: RAMIPRIL 2.5 MG CAPSULE (FP) PO SCH (09:02)
[2018-10-12] MEDS: CARVEDILOL 3.125 MG TABLET (FP) PO SCH (09:02)
[2018-10-12] MEDS: PANTOPRAZOLE SODIUM 40 MG VIAL IVPUSH SCH (09:04)
[2018-10-12] MEDS: TOLTERODINE TARTRATE 2 MG TABLET PO SCH (09:04)
[2018-10-12] MEDS: ENOXAPARIN NA (PORCINE) 80 MG/0.8 ML DISP.SYRIN SQ SCH ×2 (09:04→21:01)
[2018-10-12] MEDS: FLUDROCORTISONE ACETATE 0.1 MG TABLET (FP) PO SCH (09:10)
--- NOTE | 2018-10-12 09:33 | PN ---
Progress Note, Physician Chief Complaint: intubated, unable to verbalize complaints at this time but she is awake and following simple commands. History of Present Illness: Patient is a 62 year old female with PMHx of NYHA III systolic CHF, sarcoidosis , HTN, diabetes, HLD presents to [facility] with 2 days of difficulty breathing with wheezing. Hospitalization complicated when patient was found to be in septic shock requiring pressors, intubation. She was also noted to be hyperthermic with rectal temp of 107F. She remains in the ICU for further management. - Current Medication List Current Medications: Active Medications Acetaminophen (Ofirmev Injection -) 1,000 mg IVPB Q6H PRN PRN Reason: FEVER Last Admin: 10/12/18 01:15 Dose: 1,000 mg Atorvastatin Calcium (Lipitor -) 20 mg PO HS [facility] Last Admin: 10/11/18 21:13 Dose: 20 mg Carvedilol (Coreg -) 6.25 mg PO BID [facility] Last Admin: 10/12/18 09:02 Dose: 6.25 mg Cholecalciferol (Vitamin D3 -) 5,000 unit PO DAILY [facility] Last Admin: 10/12/18 09:02 Dose: 5,000 unit Enoxaparin Sodium (Lovenox -) 80 mg SQ BID [facility] Last Admin: 10/12/18 09:04 Dose: 80 mg Fludrocortisone Acetate (Florinef -) 0.05 mg PO DAILY [facility] Last Admin: 10/12/18 09:10 Dose: 0.05 mg Furosemide (Lasix Injection -) 40 mg IVPUSH BID@0600,1400 [facility] Last Admin: 10/12/18 05:37 Dose: 40 mg Hydrocortisone Sodium Succinate (Solu-Cortef -) 50 mg IVPB Q6H-IV [facility] Last Admin: 10/12/18 08:48 Dose: 50 mg Vasopressin 50 units/ Sodium (Chloride) 100 mls @ 4 mls/hr IVPB ASDIR [facility]; Protocol Last Admin: 10/11/18 11:57 Dose: 2 units/hr, 4 mls/hr Propofol (Diprivan -) 1,000,000 mcg in 100 mls @ 2.49 mls/hr IVPB TITR [facility]; Protocol Last Titration: 10/12/18 08:46 Dose: 0 mcg/kg/min, 0 mls/hr Meropenem 1 gm/ Dextrose 100 mls @ 200 mls/hr IVPB Q8H-IV [facility] Last Admin: 10/12/18 09:03 Dose: 200 mls/hr Vancomycin HCl (Vancomycin (Pre-Docked)) 1,000 mg in 250 mls @ 166.667 mls/hr IVPB Q12H [facility]; Protocol Last Admin: 10/12/18 08:07 Dose: 166.667 mls/hr Norepinephrine Bitartrate 8, (000 mcg/ Dextrose) 500 mls @ 18.75 mls/hr IV TITR [facility]; Protocol Last Titration: 10/12/18 08:45 Dose: 0 mcg/min, 0 mls/hr Lactobacillus Acidophilus (Bacid -) 1 tab PO DAILY [facility] Last Admin: 10/12/18 09:02 Dose: 1 tab Pantoprazole Sodium (Protonix Iv) 40 mg IVPUSH DAILY [facility] Last Admin: 10/12/18 09:04 Dose: 40 mg Ramipril (Altace -) 2.5 mg PO DAILY [facility] Last Admin: 10/12/18 09:02 Dose: 2.5 mg Tolterodine Tartrate (Detrol -) 2 mg PO DAILY [facility] Last Admin: 10/12/18 09:04 Dose: 2 mg - Objective Vital Signs: Vital Signs Temperature 100.4 F H 10/12/18 06:00 Pulse Rate 97 H 10/12/18 08:45 Respiratory Rate 10/12/18 06:49 Blood Pressure 103/77 10/12/18 08:45 O2 Sat by Pulse Oximetry (%) 100 10/12/18 01:21 Constitutional: Yes: Calm Eyes: Yes: WNL HENT: Yes: Atraumatic Neck: Yes: Supple Cardiovascular: Yes: Regular Rate and Rhythm Respiratory: Yes: Intubated Gastrointestinal: Yes: Normal Bowel Sounds, Soft, Abdomen, Obese ...Rectal Exam: Yes: Deferred Genitourinary: Yes: Barclay Present (pink tinged urine) Musculoskeletal: Yes: WNL Edema: LLE: Trace, RLE: 1+ Integumentary: Yes: WNL Neurological: Yes: Alert Labs: CBC, BMP 10/12/18 05:30 10/12/18 05:30 - ....Imaging Chest X-ray: Report Reviewed Problem List - Problems (1) Septic shock Assessment/Plan: Shock - likely septic shock in addition to cardiogenic Sedated and intubated on Levophed and milrinone gtt. lactic acid remains elevated on meropenem ID following will re culture Code(s): A41.9 - SEPSIS, UNSPECIFIED ORGANISM; R65.21 - SEVERE SEPSIS WITH SEPTIC SHOCK (2) Respiratory failure with hypoxia Assessment/Plan: remains intubated care per icu Code(s): J96.91 - RESPIRATORY FAILURE, UNSPECIFIED WITH HYPOXIA (3) DENISHA (acute kidney injury) Assessment/Plan: monitor labs daily renal following Code(s): N17.9 - ACUTE KIDNEY FAILURE, UNSPECIFIED (4) GERD (gastroesophageal reflux disease) Assessment/Plan: protonix iv push Code(s): K21.9 - GASTRO-ESOPHAGEAL REFLUX DISEASE WITHOUT ESOPHAGITIS (5) HTN (hypertension) Assessment/Plan: monitor bp. cardiology following cardiac meds on hold as patient is on pressors Code(s): I10 - ESSENTIAL (PRIMARY) HYPERTENSION (6) Metabolic encephalopathy Assessment/Plan: Likely secondary to septic shock -Sedation with Propofol -Head CT reveals no acute intracranial pathology -interruption of IV sedation as per ICU protocol Code(s): G93.41 - METABOLIC ENCEPHALOPATHY (7) Pacemaker Code(s): Z95.0 - PRESENCE OF CARDIAC PACEMAKER (8) Troponin I above reference range Assessment/Plan: Troponin 0.12> 0.80 -Cardiology consultation appreciated. -Patient anticoagulated with Lovenox 80mg subq BID -Norepinepherine & Vasopressin gtt to maintain MAP>60 -Hydrocortisone 50mg IV Q6 hours -Fludrocortisone 0.05mg PO daily Code(s): R74.8 - ABNORMAL LEVELS OF OTHER SERUM ENZYMES (9) Acute on chronic diastolic (congestive) heart failure Assessment/Plan: non-compliant with diuretic therapy c/w lasix 40mg IV q 12H if BP tolerates cardiology consultation appreciated Code(s): I50.33 - ACUTE ON CHRONIC DIASTOLIC (CONGESTIVE) HEART FAILURE (10) Hyperlipidemia Assessment/Plan: start statins when more stable. Code(s): E78.5 - HYPERLIPIDEMIA, UNSPECIFIED Qualifiers: Hyperlipidemia type: pure hypercholesterolemia Qualified Code(s): E78.00 - Pure hypercholesterolemia, unspecified; E78.0 - Pure hypercholesterolemia (11) Hypertensive cardiomyopathy Code(s): I11.9 - HYPERTENSIVE HEART DISEASE WITHOUT HEART FAILURE; I42.9 - CARDIOMYOPATHY, UNSPECIFIED Qualifiers: Heart failure presence: with heart failure Qualified Code(s): I11.0 - Hypertensive heart disease with heart failure; I43 - Cardiomyopathy in diseases classified elsewhere (12) Prophylactic measure Assessment/Plan: fen on pressors started on jevity feeds via ngt on lovenox bid Code(s): Z29.9 - ENCOUNTER FOR PROPHYLACTIC MEASURES, UNSPECIFIED Visit type - Emergency Visit Emergency Visit: Yes ED Registration Date: 10/09/18 Care time: The patient presented to the Emergency Department on the above date and was hospitalized for further evaluation of their emergent condition. - New Patient This patient is new to me today: Yes Date on this admission: 10/13/18 - Critical Care Critical Care patient: Yes Total Critical Care Time (in minutes): 45 Critical Care Statement: The care of this patient involved high complexity decision making to prevent further life threatening deterioration of the patient 's condition and/or to evaluate & treat vital organ system(s) failure or risk of failure. - Discharge Referral Referred to [facility] Med P.C.: No
[2018-10-12] MEDS ORDERED: ALBUTEROL SO4 2.5/IPRATROPIUM 0.5 INH SOL 3 ML VIAL.NEB. NEB ONE (11:41)
--- NOTE | 2018-10-12 12:26 | PN ---
Physical Exam: SUBJECTIVE: Patient seen and examined at bedside, intubated but not sedated. Communicating through writing. Says she has some wheezing/ chest discomfort. Denies any chest or throat pain. No acute events overnight OBJECTIVE: Vital Signs Period Temp Pulse Resp BP Sys/Zayas Pulse Ox Last 24 Hr 100.4 F-1014 F 88-102 14-21 102-116/51-81 99-100 GENERAL: The patient is intubated, awake, and alert, in no acute distress. HEAD: Normal with no signs of trauma. EYES: PERRL, extraocular movements intact, sclera anicteric, conjunctiva clear. ENT: Ears normal, nares patent, oropharynx with ET and OG tubes in place, dry mucous membranes. NECK: Trachea midline, supple. LUNGS: Breath sounds equal, diffuse ronchi bilaterally, no wheezes, no crackles , no accessory muscle use. HEART: irregular rate and rhythm, S1, S2 without murmur. ABDOMEN: Soft, distended. Hypoactive bowel sounds x4 quadrants. No rebound tenderness ellicited. EXTREMITIES: 1+ radial, dorsalis pedis pulses bilaterally, warm. 2+ edema bilateral lower extremities. NEUROLOGICAL: moves all four extremities, responsive to commands when taken off sedation. Laboratory Results - last 24 hr 10/11/18 10/11/18 10/11/18 12:05 14:16 21:40 WBC RBC Hgb Hct MCV MCH MCHC RDW Plt Count MPV PTT (Actin FS) Sodium 130 L Potassium 3.0 L Chloride 90 L Carbon Dioxide 26 Anion Gap 14 BUN 21.4 H Creatinine 1.2 Est GFR (CKD-EPI)AfAm 56.89 Est GFR (CKD-EPI)NonAf 49.08 POC Glucometer Random Glucose 288 H Serum Osmolality Lactic Acid 3.7 H* 2.3 H* Calcium 7.3 L Phosphorus Magnesium Total Bilirubin AST ALT Alkaline Phosphatase Total Protein Albumin Ur Random Creatinine Ur Random Sodium 10/12/18 10/12/18 10/12/18 05:30 05:30 05:30 WBC 12.5 H RBC 3.34 L Hgb 9.1 L Hct 27.8 L MCV 83.3 MCH 27.3 MCHC 32.8 RDW 18.7 H Plt Count 95 L MPV 11.1 D PTT (Actin FS) 33.4 Sodium 125 L Potassium 3.6 Chloride 85 L Carbon Dioxide 27 Anion Gap 13 BUN 27.7 H Creatinine 1.2 Est GFR (CKD-EPI)AfAm 56.89 Est GFR (CKD-EPI)NonAf 49.08 POC Glucometer Random Glucose 301 H* Serum Osmolality Lactic Acid Calcium 7.7 L Phosphorus 3.6 Magnesium 1.9 Total Bilirubin 1.0 AST 34 ALT 136 H Alkaline Phosphatase 62 Total Protein 5.8 L Albumin 3.1 L Ur Random Creatinine Ur Random Sodium 10/12/18 10/12/18 10/12/18 06:19 07:30 07:30 WBC RBC Hgb Hct MCV MCH MCHC RDW Plt Count MPV PTT (Actin FS) Sodium Potassium Chloride Carbon Dioxide Anion Gap BUN Creatinine Est GFR (CKD-EPI)AfAm Est GFR (CKD-EPI)NonAf POC Glucometer 71 Random Glucose Serum Osmolality Lactic Acid Calcium Phosphorus Magnesium Total Bilirubin AST ALT Alkaline Phosphatase Total Protein Albumin Ur Random Creatinine 18.0 L Ur Random Sodium 53 10/12/18 10/12/18 07:30 10:22 WBC RBC Hgb Hct MCV MCH MCHC RDW Plt Count MPV PTT (Actin FS) Sodium Potassium Chloride Carbon Dioxide Anion Gap BUN Creatinine Est GFR (CKD-EPI)AfAm Est GFR (CKD-EPI)NonAf POC Glucometer Random Glucose Serum Osmolality 281 Lactic Acid 2.8 H* Calcium Phosphorus Magnesium Total Bilirubin AST ALT Alkaline Phosphatase Total Protein Albumin Ur Random Creatinine Ur Random Sodium Active Medications Generic Name Dose Route Start Last Admin Trade Name Freq PRN Reason Stop Dose Admin Acetaminophen 1,000 mg 10/11/18 08:47 10/12/18 01:15 Ofirmev Injection - IVPB 1,000 mg Q6H PRN Administration FEVER Atorvastatin Calcium 20 mg 10/09/18 22:00 10/11/18 21:13 Lipitor - PO 20 mg HS CHANG Administration Carvedilol 6.25 mg 10/09/18 22:00 10/12/18 09:02 Coreg - PO 6.25 mg BID CHANG Administration Cholecalciferol 5,000 unit 10/10/18 10:00 10/12/18 09:02 Vitamin D3 - PO 5,000 unit DAILY CHANG Administration Enoxaparin Sodium 80 mg 10/10/18 11:15 10/12/18 09:04 Lovenox - SQ 80 mg BID CHANG Administration Fludrocortisone Acetate 0.05 mg 10/10/18 11:00 10/12/18 09:10 Florinef - PO 0.05 mg DAILY CHANG Administration Furosemide 40 mg 10/09/18 18:00 10/12/18 05:37 Lasix Injection - IVPUSH 40 mg BID@0600,1400 CHANG Administration Hydrocortisone Sodium Succinate 50 mg 10/10/18 11:00 10/12/18 08:48 Solu-Cortef - IVPB 50 mg Q6H-IV CHANG Administration Vasopressin 50 units/ Sodium 100 mls @ 4 mls/hr 10/10/18 10:30 10/11/18 11:57 Chloride IVPB 2 units/hr ASDIR CHANG 4 mls/hr Administration Protocol 2 UNITS/HR Propofol 1,000,000 mcg in 100 mls @ 2.49 mls/hr 10/10/18 10:30 10/12/18 08:46 Diprivan - IVPB 0 mcg/kg/min TITR CHANG 0 mls/hr Titration Protocol 5 MCG/KG/MIN Meropenem 1 gm/ Dextrose 100 mls @ 200 mls/hr 10/10/18 18:00 10/12/18 09:03 IVPB 200 mls/hr Q8H-IV CHANG Administration Vancomycin HCl 1,000 mg in 250 mls @ 166.667 mls/hr 10/11/18 20:00 10/12/18 08:07 Vancomycin (Pre-Docked) IVPB 166.667 mls/hr Q12H CHANG Administration Protocol Norepinephrine Bitartrate 8, 500 mls @ 18.75 mls/hr 10/11/18 21:45 10/12/18 08:45 000 mcg/ Dextrose IV 0 mcg/min TITR CHANG 0 mls/hr Titration Protocol 5 MCG/MIN Lactobacillus Acidophilus 1 tab 10/10/18 10:00 10/12/18 09:02 Bacid - PO 1 tab DAILY CHANG Administration Pantoprazole Sodium 40 mg 10/11/18 12:15 10/12/18 09:04 Protonix Iv IVPUSH 40 mg DAILY CHANG Administration Ramipril 2.5 mg 10/10/18 10:00 10/12/18 09:02 Altace - PO 2.5 mg DAILY CHANG Administration Tolterodine Tartrate 2 mg 10/10/18 10:00 10/12/18 09:04 Detrol - PO 2 mg DAILY CHANG Administration ASSESSMENT/PLAN: 62 year old female with PMHx of NYHA III systolic CHF, sarcoidosis, HTN, HLD presented to the ed with 2 days of difficulty breathing with wheezing and initially admitted for acute on chronic CHF exacerbation is brought to ICU for acute decompensation of respiratory status with a temperature of 107. Septic shock Hyperpyrexia Acute respiratory distress History of bilateral pulmonary embolism History of cerebral hemorrhage History of pulmonary sarcoidosis History of Afib AICD with complete heart block Neurologic History of cerebral hemorrhage Acute metabolic encephalopathy -Likely secondary to septic shock -Sedation with Propofol -Hyperpyrexia -patient now off cooling blanket, continue to monitor rectal temperature -Head CT reveals no acute intracranial pathology Pulmonary Acute respiratory distress -Patient is intubated. Tidal volume 400cc, FiO2 50%, RR 14, PEEP 5. -History of pulmonary embolism- however documented not compliant with home Eliquis. -Started on therapeutic dose Lovenox 80mg subq BID for anticoagulation -CTA chest negative for acute pulmonary embolism -Ordered 1 round of duonebs today because the patient said she felt wheezy/ congested Cardiovascular AICD with complete heart block Troponinemia concerning for ACS -Troponin 0.12 -> 0.54 -> 1.16 -> 0.80 -Cardiology recommendations (Dr. Cerna) appreciated. -Patient anticoagulated with Lovenox 80mg subq BID -Cardiac ECHO showing: EF 20-25%, decreased LV function, mild elevation of the LV, biprosthetic mitral valve with mild-moderate regurgitation. -Discontinued NE today -Vasopressin currently at 2 -Hydrocortisone 50mg IV Q6 hours -Fludrocortisone 0.05mg PO daily -Continue diuresis with Lasix Gastrointestinal -NPO while patient is intubated -Protonix 40mg IV BID prophylaxis Infectious disease Septic shock; uncertain source -Blood cultures growing gram positive cocci in clusters ?contaminant -Follow urine cultures -Urine for legionella, pneumonia -Lactic acid peaked at 3.7 -ID consult (Dr. Mehta) appreciated -Vancomycin 1 gram Q12 hours -Meropenem 1 gram IV Q8 hours Renal -Continue diuresis with lasix -F/u urine myoglobin - replace potassium - F/u urine osm and urine lytes -Dr. Lazo following, recommendations appreciated. Endo Blood glucose elevated today, patient is on steroids and all her meds are IV in D5 -will check sugars q6h -SSI FEN -IV normal saline bolus, caution not to overload -Hypokalemia, repleted. Follow CMP, replete K as needed -NPO Prophylaxis -Patient is on Lovenox 80mg subq BID Disposition: We will continue to follow the patient. Thank you for this consultative opportunity. Visit type - Emergency Visit Emergency Visit: Yes ED Registration Date: 10/09/18 Care time: The patient presented to the Emergency Department on the above date and was hospitalized for further evaluation of their emergent condition. - New Patient This patient is new to me today: Yes Date on this admission: 10/12/18 - Critical Care Critical Care patient: Yes Total Critical Care Time (in minutes): 40 Critical Care Statement: The care of this patient involved high complexity decision making to prevent further life threatening deterioration of the patient 's condition and/or to evaluate & treat vital organ system(s) failure or risk of failure. ATTENDING PHYSICIAN STATEMENT I saw and evaluated the patient. I reviewed the resident's note and discussed the case with the resident. I agree with the resident's findings and plan as documented. SUBJECTIVE: OBJECTIVE: ASSESSMENT AND PLAN:
[2018-10-12] MEDS ORDERED: FUROSEMIDE 40 MG/4 ML INJECTABLE VIAL IVPUSH SCH (12:39)
[2018-10-12 13:31] LABS: BILIRUBIN,TOTAL 0.9 mg/dL (0.2-1); BLOOD UREA NITROGEN 28.8 mg/dL (7-18); CALCIUM 7.9 mg/dL (8.5-10.1); CREATININE 1.3 mg/dL (0.55-1.3); POTASSIUM 3.1 mmol/L (3.5-5.1); TOT PROT 5.3 g/dl (6.4-8.2)
[2018-10-12] MEDS ORDERED: POTASSIUM CHLORIDE ORAL LIQUID 20 MEQ/15 ML NGT ONE (13:36)
[2018-10-12] MEDS ORDERED: INSULIN (NOVOLOG) ASPART 100 UNITS/ML 10ML VIAL SQ ONE (13:37)
--- NOTE | 2018-10-12 13:42 | PN ---
Progress Note, Physician History of Present Illness: continues to be intubated and sedated still requiring resp support pressors - Current Medication List Current Medications: Active Medications Acetaminophen (Ofirmev Injection -) 1,000 mg IVPB Q6H PRN PRN Reason: FEVER Last Admin: 10/12/18 01:15 Dose: 1,000 mg Atorvastatin Calcium (Lipitor -) 20 mg PO HS CHANG Last Admin: 10/11/18 21:13 Dose: 20 mg Carvedilol (Coreg -) 6.25 mg PO BID CHANG Last Admin: 10/12/18 09:02 Dose: 6.25 mg Cholecalciferol (Vitamin D3 -) 5,000 unit PO DAILY [facility]ANG Last Admin: 10/12/18 09:02 Dose: 5,000 unit Enoxaparin Sodium (Lovenox -) 80 mg SQ BID CHANG Last Admin: 10/12/18 09:04 Dose: 80 mg Fludrocortisone Acetate (Florinef -) 0.05 mg PO DAILY [facility]ANG Last Admin: 10/12/18 09:10 Dose: 0.05 mg Furosemide (Lasix Injection -) 40 mg IVPUSH BID@0600,1400 CHANG Last Admin: 10/12/18 13:00 Dose: 40 mg Hydrocortisone Sodium Succinate (Solu-Cortef -) 50 mg IVPB Q6H-IV CHANG Last Admin: 10/12/18 08:48 Dose: 50 mg Vasopressin 50 units/ Sodium (Chloride) 100 mls @ 4 mls/hr IVPB ASDIR CHANG; Protocol Last Titration: 10/12/18 13:03 Dose: 2 units/hr, 4 mls/hr Propofol (Diprivan -) 1,000,000 mcg in 100 mls @ 2.49 mls/hr IVPB TITR CHANG; Protocol Last Admin: 10/12/18 13:08 Dose: 10 mcg/kg/min, 4.98 mls/hr Meropenem 1 gm/ Dextrose 100 mls @ 200 mls/hr IVPB Q8H-IV CHANG Last Admin: 10/12/18 09:03 Dose: 200 mls/hr Vancomycin HCl (Vancomycin (Pre-Docked)) 1,000 mg in 250 mls @ 166.667 mls/hr IVPB Q12H CHANG; Protocol Last Admin: 10/12/18 08:07 Dose: 166.667 mls/hr Norepinephrine Bitartrate 8, (000 mcg/ Dextrose) 500 mls @ 18.75 mls/hr IV TITR CHANG; Protocol Last Titration: 10/12/18 08:45 Dose: 0 mcg/min, 0 mls/hr Potassium Chloride (Potassium Chloride 10 Meq Premix Ivpb -) 10 meq in 100 mls @ 100 mls/hr IVPB Q60M [facility] Stop: 10/12/18 16:44 Insulin Aspart (Novolog Vial) 6 units SQ ONCE ONE; Protocol Stop: 10/12/18 13:38 Lactobacillus Acidophilus (Bacid -) 1 tab PO DAILY [facility] Last Admin: 10/12/18 09:02 Dose: 1 tab Pantoprazole Sodium (Protonix Iv) 40 mg IVPUSH DAILY [facility] Last Admin: 10/12/18 09:04 Dose: 40 mg Potassium Chloride (Potassium Chloride Oral Liquid) 40 meq NGT ONCE ONE Stop: 10/12/18 13:37 Ramipril (Altace -) 2.5 mg PO DAILY [facility] Last Admin: 10/12/18 09:02 Dose: 2.5 mg Tolterodine Tartrate (Detrol -) 2 mg PO DAILY [facility] Last Admin: 10/12/18 09:04 Dose: 2 mg - Objective Vital Signs: Vital Signs Temperature 100.4 F H 10/12/18 06:00 Pulse Rate 90 10/12/18 13:03 Respiratory Rate 14 10/12/18 12:21 Blood Pressure 84/73 L 10/12/18 13:03 O2 Sat by Pulse Oximetry (%) 99 10/12/18 08:30 Constitutional: Yes: Other Cardiovascular: Yes: Regular Rate and Rhythm Respiratory: Yes: Intubated, Mechanically Ventilated Gastrointestinal: Yes: Normal Bowel Sounds, Soft Musculoskeletal: Yes: WNL Extremities: Yes: WNL Neurological: Yes: Other Psychiatric: Yes: Other Labs: CBC, BMP 10/12/18 05:30 10/12/18 12:35 Assessment/Plan Problem List - Problems (1) GERD (gastroesophageal reflux disease) Code(s): K21.9 - GASTRO-ESOPHAGEAL REFLUX DISEASE WITHOUT ESOPHAGITIS (3) HTN (hypertension) Code(s): I10 - ESSENTIAL (PRIMARY) HYPERTENSION (4) Pacemaker Code(s): Z95.0 - PRESENCE OF CARDIAC PACEMAKER (5) Respiratory failure with hypoxia Code(s): J96.91 - RESPIRATORY FAILURE, UNSPECIFIED WITH HYPOXIA (6) Shock Code(s): R57.9 - SHOCK, UNSPECIFIED (7) Acute on chronic diastolic (congestive) heart failure Code(s): I50.33 - ACUTE ON CHRONIC DIASTOLIC (CONGESTIVE) HEART FAILURE (8) Hyperlipidemia Code(s): E78.5 - HYPERLIPIDEMIA, UNSPECIFIED Qualifiers: Hyperlipidemia type: pure hypercholesterolemia Qualified Code(s): E78.00 - Pure hypercholesterolemia, unspecified; E78.0 - Pure hypercholesterolemia (9) Pulmonary embolism Code(s): I26.99 - OTHER PULMONARY EMBOLISM WITHOUT ACUTE COR PULMONALE (11) Sarcoidosis Code(s): D86.9 - SARCOIDOSIS, UNSPECIFIED (12) Status post tricuspid valve repair Code(s): Z98.890 - OTHER SPECIFIED POSTPROCEDURAL STATES Assessment/Plan 62 y.o. female with PMH of b/l PE diagnosed 09/10/18 on Eliquis, systolic CHF, s/ p PPM, tricuspid repair and bioprosthetic MV repair, Sarcoidosis, hemorrhagic CVA, COPD, HTN, HLD, GERD, s/p cholecystectomy and LT hip surgery initially presented for c/o progressive SOB over the past 2 wks with weakness. Has been reportedly noncompliant with taking Lasix but taking Eliquis. Was transferred to the ICU for respiratory failure requiring intubation, hypotension, hyperthermia. Shock - likely Septic shock in addition to Cardiogenic Acute hypoxemic respiratory failure s/p intubation Hyperthermia B/L PE - r/o new embolism Sarcoidosis Hx of hemorrhagic CVA s/p AICD s/p tricuspid valve repair, bioprosthetic MV replacement Hx of UTI recently on antibiotics patient still intubated clear cut source still not present plan continue abx for now await for all cx repeat blood cx tomorrow supportive echo cardio on board rest as per icu 40 min
--- NOTE | 2018-10-12 14:04 | PN ---
Progress Note, Physician History of Present Illness: Pt seen and examined at bedside. She remains in the ICU. She remain intubated. - Current Medication List Current Medications: Active Medications Acetaminophen (Ofirmev Injection -) 1,000 mg IVPB Q6H PRN PRN Reason: FEVER Last Admin: 10/12/18 01:15 Dose: 1,000 mg Atorvastatin Calcium (Lipitor -) 20 mg PO HS CHANG Last Admin: 10/11/18 21:13 Dose: 20 mg Carvedilol (Coreg -) 6.25 mg PO BID CHANG Last Admin: 10/12/18 09:02 Dose: 6.25 mg Cholecalciferol (Vitamin D3 -) 5,000 unit PO DAILY CHANG Last Admin: 10/12/18 09:02 Dose: 5,000 unit Enoxaparin Sodium (Lovenox -) 80 mg SQ BID CHANG Last Admin: 10/12/18 09:04 Dose: 80 mg Fludrocortisone Acetate (Florinef -) 0.05 mg PO DAILY CHANG Last Admin: 10/12/18 09:10 Dose: 0.05 mg Furosemide (Lasix Injection -) 40 mg IVPUSH BID@0600,1400 CHANG Last Admin: 10/12/18 13:00 Dose: 40 mg Hydrocortisone Sodium Succinate (Solu-Cortef -) 50 mg IVPB Q6H-IV CHANG Last Admin: 10/12/18 08:48 Dose: 50 mg Vasopressin 50 units/ Sodium (Chloride) 100 mls @ 4 mls/hr IVPB ASDIR CHANG; Protocol Last Titration: 10/12/18 13:03 Dose: 2 units/hr, 4 mls/hr Propofol (Diprivan -) 1,000,000 mcg in 100 mls @ 2.49 mls/hr IVPB TITR CHANG; Protocol Last Admin: 10/12/18 13:08 Dose: 10 mcg/kg/min, 4.98 mls/hr Meropenem 1 gm/ Dextrose 100 mls @ 200 mls/hr IVPB Q8H-IV CHANG Last Admin: 10/12/18 09:03 Dose: 200 mls/hr Vancomycin HCl (Vancomycin (Pre-Docked)) 1,000 mg in 250 mls @ 166.667 mls/hr IVPB Q12H CHANG; Protocol Last Admin: 10/12/18 08:07 Dose: 166.667 mls/hr Norepinephrine Bitartrate 8, (000 mcg/ Dextrose) 500 mls @ 18.75 mls/hr IV TITR CHANG; Protocol Last Titration: 10/12/18 08:45 Dose: 0 mcg/min, 0 mls/hr Potassium Chloride (Potassium Chloride 10 Meq Premix Ivpb -) 10 meq in 100 mls @ 100 mls/hr IVPB Q60M CHANG Stop: 10/12/18 16:44 Lactobacillus Acidophilus (Bacid -) 1 tab PO DAILY CHANG Last Admin: 10/12/18 09:02 Dose: 1 tab Pantoprazole Sodium (Protonix Iv) 40 mg IVPUSH DAILY [facility] Last Admin: 10/12/18 09:04 Dose: 40 mg Ramipril (Altace -) 2.5 mg PO DAILY [facility] Last Admin: 10/12/18 09:02 Dose: 2.5 mg Tolterodine Tartrate (Detrol -) 2 mg PO DAILY [facility] Last Admin: 10/12/18 09:04 Dose: 2 mg - Objective Vital Signs: Vital Signs Temperature 100.4 F H 10/12/18 06:00 Pulse Rate 90 10/12/18 13:03 Respiratory Rate 14 10/12/18 12:21 Blood Pressure 84/73 L 10/12/18 13:03 O2 Sat by Pulse Oximetry (%) 99 10/12/18 08:30 Constitutional: Yes: Calm Eyes: Yes: Conjunctiva Clear Cardiovascular: Yes: S1, S2 Respiratory: Yes: Mechanically Ventilated Gastrointestinal: Yes: Soft, Abdomen, Obese Genitourinary: Yes: [place]ay Present Musculoskeletal: Yes: Muscle Weakness Edema: Yes Edema: LLE: 1+, RLE: 1+ Integumentary: Yes: WNL Neurological: Yes: Lethargy Labs: CBC, BMP 10/12/18 05:30 10/12/18 12:35 - ....Imaging Chest X-ray: Report Reviewed Problem List - Problems (1) DENISHA (acute kidney injury) Code(s): N17.9 - ACUTE KIDNEY FAILURE, UNSPECIFIED (2) Respiratory failure Code(s): J96.90 - RESPIRATORY FAILURE, UNSP, UNSP W HYPOXIA OR HYPERCAPNIA (3) CHF exacerbation Code(s): I50.9 - HEART FAILURE, UNSPECIFIED Qualifiers: Heart failure type: unspecified Qualified Code(s): I50.9 - Heart failure, unspecified Assessment/Plan Current Medications Generic Name Dose Route Start Last Admin Trade Name Freq PRN Reason Stop Dose Admin Acetaminophen 1,000 mg 10/11/18 08:47 10/12/18 01:15 Ofirmev Injection - IVPB 1,000 mg Q6H PRN Administration FEVER Atorvastatin Calcium 20 mg 10/09/18 22:00 10/11/18 21:13 Lipitor - PO 20 mg HS CHANG Administration Carvedilol 6.25 mg 10/09/18 22:00 10/12/18 09:02 Coreg - PO 6.25 mg BID CHANG Administration Cholecalciferol 5,000 unit 10/10/18 10:00 10/12/18 09:02 Vitamin D3 - PO 5,000 unit DAILY CHANG Administration Enoxaparin Sodium 80 mg 10/10/18 11:15 10/12/18 09:04 Lovenox - SQ 80 mg BID CHANG Administration Fludrocortisone Acetate 0.05 mg 10/10/18 11:00 10/12/18 09:10 Florinef - PO 0.05 mg DAILY CHANG Administration Furosemide 40 mg 10/12/18 12:44 10/12/18 13:00 Lasix Injection - IVPUSH 40 mg BID@0600,1400 CHANG Administration Hydrocortisone Sodium Succinate 50 mg 10/10/18 11:00 10/12/18 08:48 Solu-Cortef - IVPB 50 mg Q6H-IV CHANG Administration Vasopressin 50 units/ Sodium 100 mls @ 4 mls/hr 10/10/18 10:30 10/12/18 13:03 Chloride IVPB 2 units/hr ASDIR CHANG 4 mls/hr Titration Protocol 2 UNITS/HR Propofol 1,000,000 mcg in 100 mls @ 2.49 mls/hr 10/10/18 10:30 10/12/18 13:08 Diprivan - IVPB 10 mcg/kg/min TITR CHANG 4.98 mls/hr Administration Protocol 5 MCG/KG/MIN Meropenem 1 gm/ Dextrose 100 mls @ 200 mls/hr 10/10/18 18:00 10/12/18 09:03 IVPB 200 mls/hr Q8H-IV CHANG Administration Vancomycin HCl 1,000 mg in 250 mls @ 166.667 mls/hr 10/11/18 20:00 10/12/18 08:07 Vancomycin (Pre-Docked) IVPB 166.667 mls/hr Q12H CHANG Administration Protocol Norepinephrine Bitartrate 8, 500 mls @ 18.75 mls/hr 10/11/18 21:45 10/12/18 08:45 000 mcg/ Dextrose IV 0 mcg/min TITR CHANG 0 mls/hr Titration Protocol 5 MCG/MIN Potassium Chloride 10 meq in 100 mls @ 100 mls/hr 10/12/18 13:45 Potassium Chloride 10 Meq Premix Ivpb - IVPB 10/12/18 16:44 Q60M CHANG Lactobacillus Acidophilus 1 tab 10/10/18 10:00 10/12/18 09:02 Bacid - PO 1 tab DAILY CHANG Administration Pantoprazole Sodium 40 mg 10/11/18 12:15 10/12/18 09:04 Protonix Iv IVPUSH 40 mg DAILY CHANG Administration Ramipril 2.5 mg 10/10/18 10:00 10/12/18 09:02 Altace - PO 2.5 mg DAILY CHANG Administration Tolterodine Tartrate 2 mg 10/10/18 10:00 10/12/18 09:04 Detrol - PO 2 mg DAILY CHANG Administration Impression 1. DENISHA 2. resp failure 3. chf 4. hx PE 5. hx htn 6. pulm sarcoid 7. shock 8. a-fib 9. hyponatremia Plan - replace potassium - monitor bp - vent support - cont to monitor renal function - cont lasix - volume status is improving - cont to evaluate volume status - will need better glucose control - check urine osm and urine lytes - discussed with ICU team
[2018-10-12] MEDS: KCL 10 MEQ IVPB 10 MEQ/100 ML INFUS.BAG IVPB SCH ×3 (14:24→18:00)
[2018-10-12] MEDS ORDERED: VASOPRESSIN 20 UNITS/ML VIAL IV ONE (14:39)
--- NOTE | 2018-10-12 14:46 | PN ---
Teaching Attending Note Name of Resident: Nubia Landon ATTENDING PHYSICIAN STATEMENT I saw and evaluated the patient. I reviewed the resident's note and discussed the case with the resident. I agree with the resident's findings and plan as documented. SUBJECTIVE: Pt seen and examined in the ICU. Remains intubated, awake off sedation. Persistently febrile. On lower dose pressors. Cultures negative. OBJECTIVE: Vital Signs Period Temp Pulse Resp BP Sys/Zayas Pulse Ox Last 24 Hr 100.4 F-1014 F 88-101 14-21 84-116/51-81 99-100 Intake & Output 10/09/18 10/10/18 10/11/18 10/12/18 23:59 23:59 23:59 23:59 Intake Total 200 1244.0 3201.6 476 Output Total 4300 2050 450 Balance 200 -3056.0 1151.6 26 Weight 83.007 kg 93.5 kg 83.461 kg 87.453 kg Gen: intubated, awake Heart: RRR Lung: decreased breath sounds at the bases Abd: soft, nontender Ext: + edema CBC, BMP 10/12/18 05:30 10/12/18 12:35 Active Medications Acetaminophen (Ofirmev Injection -) 1,000 mg IVPB Q6H PRN PRN Reason: FEVER Last Admin: 10/12/18 01:15 Dose: 1,000 mg Atorvastatin Calcium (Lipitor -) 20 mg PO HS [facility] Last Admin: 10/11/18 21:13 Dose: 20 mg Carvedilol (Coreg -) 6.25 mg PO BID [facility] Last Admin: 10/12/18 09:02 Dose: 6.25 mg Cholecalciferol (Vitamin D3 -) 5,000 unit PO DAILY [facility] Last Admin: 10/12/18 09:02 Dose: 5,000 unit Enoxaparin Sodium (Lovenox -) 80 mg SQ BID CHANG Last Admin: 10/12/18 09:04 Dose: 80 mg Fludrocortisone Acetate (Florinef -) 0.05 mg PO DAILY [facility] Last Admin: 10/12/18 09:10 Dose: 0.05 mg Furosemide (Lasix Injection -) 40 mg IVPUSH BID@0600,1400 [facility] Last Admin: 10/12/18 13:00 Dose: 40 mg Hydrocortisone Sodium Succinate (Solu-Cortef -) 50 mg IVPB Q6H-IV [facility]ANG Last Admin: 10/12/18 14:25 Dose: 50 mg Vasopressin 50 units/ Sodium (Chloride) 100 mls @ 4 mls/hr IVPB ASDIR CHANG; Protocol Last Titration: 10/12/18 13:03 Dose: 2 units/hr, 4 mls/hr Propofol (Diprivan -) 1,000,000 mcg in 100 mls @ 2.49 mls/hr IVPB TITR CHANG; Protocol Last Admin: 10/12/18 13:08 Dose: 10 mcg/kg/min, 4.98 mls/hr Meropenem 1 gm/ Dextrose 100 mls @ 200 mls/hr IVPB Q8H-IV [facility] Last Admin: 10/12/18 09:03 Dose: 200 mls/hr Vancomycin HCl (Vancomycin (Pre-Docked)) 1,000 mg in 250 mls @ 166.667 mls/hr IVPB Q12H [facility]; Protocol Last Admin: 10/12/18 08:07 Dose: 166.667 mls/hr Norepinephrine Bitartrate 8, (000 mcg/ Dextrose) 500 mls @ 18.75 mls/hr IV TITR CHANG; Protocol Last Titration: 10/12/18 08:45 Dose: 0 mcg/min, 0 mls/hr Potassium Chloride (Potassium Chloride 10 Meq Premix Ivpb -) 10 meq in 100 mls @ 100 mls/hr IVPB Q60M [facility] Stop: 10/12/18 16:44 Last Admin: 10/12/18 14:24 Dose: 100 mls/hr Lactobacillus Acidophilus (Bacid -) 1 tab PO DAILY [facility] Last Admin: 10/12/18 09:02 Dose: 1 tab Pantoprazole Sodium (Protonix Iv) 40 mg IVPUSH DAILY [facility] Last Admin: 10/12/18 09:04 Dose: 40 mg Ramipril (Altace -) 2.5 mg PO DAILY [facility] Last Admin: 10/12/18 09:02 Dose: 2.5 mg Tolterodine Tartrate (Detrol -) 2 mg PO DAILY [facility] Last Admin: 10/12/18 09:04 Dose: 2 mg ASSESSMENT AND PLAN: Acute Hypoxic Respiratory Failure Shock - Septic vs Cardiogenic h/o Bilateral Pulmonary Emboli Pulmonary Sarcoidosis Atrial Fibrillation s/p PPM Thrombocytopenia h/o Intracranial Hemorrhage - continue antibiotics - f/u cultures - IVF to keep CVP 8-12 - titrate pressors to maintain MAP >65 - continue empiric stress dose steroids - check SvO2, may need inotropic support - rate control - continue anticoagulation - replete lytes - enteral feeds - daily sedation vacations to assess mental status - spontaneous breathing trials as tolerated when mental status improved - DVT/GI prophylaxis - continue ICU monitoring critical care time spent in reviewing chart, evaluating patient and formulating plan 35 min
[2018-10-12] MEDS ORDERED: INSULIN SLIDING SCALE (NOVOLOG) 1 VIAL SQ SCH (16:30)
[2018-10-12] MEDS: INSULIN SLIDING SCALE (NOVOLOG) 1 VIAL SQ SCH ×2 (18:03→21:39)
--- NOTE | 2018-10-12 18:28 | PN ---
Progress Note (short form) - Note Progress Note: Chief Complaint: Events noted, notes reviewed, patient was seen earlier today, patient remains intubated, sedated on pressors History of Present Illness: Seen and examined in the ICU. Events noted, notes reviewed, patient was seen earlier today, patient remains intubated, sedated on pressors Patient was seen by Dr. Bogdan Almodovar/cardiology over the weekend- coverage Patient is followed by Dr. Trevor Loving and was last seen in the office September 24, 2018, known history of cerebellar bleed, mitral valve disease post mitral valve replacement-Bioprosthesis/history of mitral valve prolapse with moderate to severe mitral valve regurgitation, tricuspid valve repair, pulmonary sarcoidosis , systolic left ventricular dysfunction post prophylactic ICD implantation, AV block, paroxysmal atrial fibrillation and pulmonary thromboembolism on anticoagulation therapy Echocardiography performed March 29, 2018 revealed moderately reduced left ventricular systolic function with LVEF between 35-40%, Bioprosthetic mitral valve with mild mitral valve regurgitation,mild tricuspid valve regurgitation Echocardiography performed yesterday October 11, 2018 revealed left ventricular cavity dilatation with severe reduction in left ventricular ejection fraction estimated LVEF between 20-25% - Current Medication List Current Medications Atorvastatin Calcium (Lipitor -) 20 mg PO HS [facility] Last Admin: 10/11/18 21:13 Dose: 20 mg Carvedilol (Coreg -) 6.25 mg PO BID [facility] Last Admin: 10/12/18 09:02 Dose: 6.25 mg Cholecalciferol (Vitamin D3 -) 5,000 unit PO DAILY [facility] Last Admin: 10/12/18 09:02 Dose: 5,000 unit Enoxaparin Sodium (Lovenox -) 80 mg SQ BID [facility] Last Admin: 10/12/18 09:04 Dose: 80 mg Fludrocortisone Acetate (Florinef -) 0.05 mg PO DAILY [facility] Last Admin: 10/12/18 09:10 Dose: 0.05 mg Furosemide (Lasix Injection -) 40 mg IVPUSH BID@0600,1400 [facility] Last Admin: 10/12/18 13:00 Dose: 40 mg Hydrocortisone Sodium Succinate (Solu-Cortef -) 50 mg IVPB Q6H-IV [facility] Last Admin: 10/12/18 14:25 Dose: 50 mg Vasopressin 50 units/ Sodium (Chloride) 100 mls @ 4 mls/hr IVPB ASDIR [facility]; Protocol Last Titration: 10/12/18 13:03 Dose: 2 units/hr, 4 mls/hr Propofol (Diprivan -) 1,000,000 mcg in 100 mls @ 2.49 mls/hr IVPB TITR [facility]; Protocol Last Admin: 10/12/18 13:08 Dose: 10 mcg/kg/min, 4.98 mls/hr Meropenem 1 gm/ Dextrose 100 mls @ 200 mls/hr IVPB Q8H-IV [facility] Last Admin: 10/12/18 18:14 Dose: 200 mls/hr Vancomycin HCl (Vancomycin (Pre-Docked)) 1,000 mg in 250 mls @ 166.667 mls/hr IVPB Q12H [facility]; Protocol Last Admin: 10/12/18 08:07 Dose: 166.667 mls/hr Norepinephrine Bitartrate 8, (000 mcg/ Dextrose) 500 mls @ 18.75 mls/hr IV TITR [facility]; Protocol Last Titration: 10/12/18 08:45 Dose: 0 mcg/min, 0 mls/hr Insulin Aspart (Novolog Vial Sliding Scale -) 1 vial SQ Q6H [facility]; Protocol Last Admin: 10/12/18 18:03 Dose: 8 units Lactobacillus Acidophilus (Bacid -) 1 tab PO DAILY [facility] Last Admin: 10/12/18 09:02 Dose: 1 tab Pantoprazole Sodium (Protonix Iv) 40 mg IVPUSH DAILY [facility] Last Admin: 10/12/18 09:04 Dose: 40 mg Ramipril (Altace -) 2.5 mg PO DAILY [facility] Last Admin: 10/12/18 09:02 Dose: 2.5 mg Tolterodine Tartrate (Detrol -) 2 mg PO DAILY [facility] Last Admin: 10/12/18 09:04 Dose: 2 mg Review of Systems - Review of Systems Unable to obtain - Objective Vital Signs: Last Vital Signs Temp Pulse Resp BP Pulse Ox 100.4 F H 93 H 18 114/66 99 10/12/18 12:00 10/12/18 16:00 10/12/18 16:00 10/12/18 16:00 10/12/18 08:30 Intake & Output 10/09/18 10/10/18 10/11/18 10/12/18 23:59 23:59 23:59 23:59 Intake Total 200 1244.0 3201.6 476 Output Total 4300 2050 450 Balance 200 -3056.0 1151.6 26 Weight 183 lb 206 lb 2.115 oz 184 lb 192 lb 12.8 oz Constitutional: Intubated Neck: Supple Negative JVD No Bruit Cardiovascular: S1 S2 Regular Rate and Rhythm Respiratory: Scattered Rhonchi Bilaterally Gastrointestinal: Soft Benign Normal Bowel Sounds Ext: Edema Labs: ABG Results ABG pH 7.31 (7.35-7.45) L 10/10/18 12:24 ABG pCO2 at Pt Temp 44.2 mmHg (35-45) 10/10/18 12:24 ABG pO2 at Pt Temp 130 mmHg (80-105) H 10/10/18 12:24 ABG HCO3 21.5 mmol/L (22-27) L 10/10/18 12:24 ABG O2 Sat (Measured) 98.6 % (95-98) H 10/10/18 12:24 ABG O2 Content 14.7 % vol (15-22) L 10/10/18 12:24 ABG Base Excess -4.1 meq/l (-2-2) L 10/10/18 12:24 CBC, BMP 10/12/18 05:30 10/12/18 12:35 Hepatic Panel Total Bilirubin 0.9 mg/dL (0.2-1) 10/12/18 12:35 AST 23 U/L (15-37) 10/12/18 12:35 ALT 112 U/L (13-61) H 10/12/18 12:35 Alkaline Phosphatase 56 U/L (45-117) 10/12/18 12:35 Albumin 3.0 g/dl (3.4-5.0) L 10/12/18 12:35 Assessment/Plan ASSESSMENT: 1. Clinical presentation is consistent with probable septic shock currently on pressors- source of sepsis to be determined 2. 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 Systolic left ventricular dysfunction related to non-ischemic dilated cardiomyopathy, Class I-II [place] [employer] classification left ventricular failure- LVEF between 35-40% on echocardiography performed March 29, 2018/LVEF between 20-25% on echocardiography performed yesterday October 11, 2018 4. Post ICD implantation for syncope and complete heart block 5. Post tricuspid valve annuloplasty, for management of severe tricuspid valve regurgitation 6. 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 History of recent pulmonary thromboembolism on anticoagulation therapy 8. Chronic kidney disease 8. Hyponatremia and Hypokalemia 10. Anemia and thrombocytopenia PLAN: 1. Continue pressors and titrate dosage to off provided mean arterial pressure is equal or greater than 65 mmHg- if unable to wean off of pressors may consider right heart catheterization/[place]-Baldev catheter insertion to assist with volume management 2. If anemia and thrombocytopenia are persistent Lovenox therapy may need to be withheld 3. Withhold Coreg and Altace therapies pending hemodynamics stabilization 4. Diuretic therapy to be utilized with caution and close monitoring of renal function and electrolytes 5. Withhold Lipitor therapy considering the above-noted abnormal liver function testing, pending resolution of above co-morbidities Condition critical Nusrat Cheung M.D.
[2018-10-12] MEDS ORDERED: INSULIN (NOVOLOG) ASPART 100 UNITS/ML 10ML VIAL ONE (18:41)
[2018-10-12 19:54] LABS: CALCIUM 7.9 mg/dL (8.5-10.1); CREATININE 1.1 mg/dL (0.55-1.3); PHOSPHOROUS 3.5 mg/dL (2.5-4.9); POTASSIUM 3.8 mmol/L (3.5-5.1)
[2018-10-12] MEDS ORDERED: INSULIN REGULAR HUMAN 100 UNITS/ML *VIAL IVPUSH ONE (20:03)
[2018-10-12] MEDS: VASOPRESSIN 50 UNITS in SODIUM CHLORIDE 97.5 ML IVPB SCH (20:17)
[2018-10-13] MEDS ORDERED: DEXTROSE 5%-WATER 100 ML IVPB ONE ×2 (02:07→09:17)
[2018-10-13] MEDS ORDERED: MEROPENEM 1 GM VIAL (RESTRICTED TO ID) IVPB ONE ×3 (02:07→16:29)
[2018-10-13] MEDS: MEROPENEM 1 GM in DEXTROSE 5%-WATER 100 ML IVPB SCH ×2 (02:08→09:26)
[2018-10-13] MEDS: HYDROCORTISONE SOD SUCCINATE 100 MG/2 ML VIAL IVPB SCH ×4 (02:09→21:13)
[2018-10-13] MEDS: INSULIN SLIDING SCALE (NOVOLOG) 1 VIAL SQ SCH ×4 (04:22→21:31)
[2018-10-13] MEDS: PROPOFOL 1,000,000 MCG/100 ML VIAL IVPB SCH ×3 (05:26→21:12)
[2018-10-13] MEDS: FUROSEMIDE 40 MG/4 ML INJECTABLE VIAL IVPUSH SCH (05:26)
[2018-10-13 08:03] LABS: HEMATOCRIT 29.1 % (32.4-45.2); HEMOGLOBIN 9.4 GM/dL (10.7-15.3); MCH 27.1 pg (25.7-33.7); MCHC 32.4 g/dl (32.0-36.0); MEAN CELL VOLUME 83.6 fl (80-96); MEAN PLT VOLUME 12.1 fl (7.5-11.1); PLATELET COUNT 116 K/MM3 (134-434); RBC 3.48 M/mm3 (3.60-5.2); RDW 18.1 % (11.6-15.6)
[2018-10-13 08:21] LABS: ALBUMIN 3.2 g/dl (3.4-5.0); BILIRUBIN,TOTAL 0.9 mg/dL (0.2-1); BLOOD UREA NITROGEN 30.2 mg/dL (7-18); CALCIUM 8.5 mg/dL (8.5-10.1); CREATININE 0.9 mg/dL (0.55-1.3); POTASSIUM 4.4 mmol/L (3.5-5.1); TOT PROT 5.9 g/dl (6.4-8.2)
[2018-10-13] MEDS: VANCOMYCIN 1 GRAM (PRE-DOCKED) 1,000 MG/250 ML BAG IVPB SCH ×2 (09:24→20:30)
[2018-10-13] MEDS: LACTOBACILLUS ACIDOPHILUS 1 TABLET PO SCH (09:25)
[2018-10-13] MEDS: ENOXAPARIN NA (PORCINE) 80 MG/0.8 ML DISP.SYRIN SQ SCH ×2 (09:25→21:14)
[2018-10-13] MEDS: CHOLECALCIFEROL (VIT D3) 1,000 UNIT (25 MCG) TABLET PO SCH (09:25)
[2018-10-13] MEDS: PANTOPRAZOLE SODIUM 40 MG VIAL IVPUSH SCH (09:26)
[2018-10-13] MEDS ORDERED: PT OWN MED DRAWER 7, Y5N ONE (09:50)
[2018-10-13] MEDS: TOLTERODINE TARTRATE 2 MG TABLET PO SCH (09:53)
[2018-10-13] MEDS: FLUDROCORTISONE ACETATE 0.1 MG TABLET (FP) PO SCH (09:53)
--- NOTE | 2018-10-13 11:04 | PN ---
Progress Note, Physician History of Present Illness: intubated low dose of pressors awake and alert - Current Medication List Current Medications: Active Medications Cholecalciferol (Vitamin D3 -) 5,000 unit PO DAILY [facility] Last Admin: 10/13/18 09:25 Dose: 5,000 unit Enoxaparin Sodium (Lovenox -) 80 mg SQ BID [facility] Last Admin: 10/13/18 09:25 Dose: 80 mg Fludrocortisone Acetate (Florinef -) 0.05 mg PO DAILY [facility] Last Admin: 10/13/18 09:53 Dose: 0.05 mg Furosemide (Lasix Injection -) 40 mg IVPUSH BID@0600,1400 [facility] Last Admin: 10/13/18 05:26 Dose: 40 mg Hydrocortisone Sodium Succinate (Solu-Cortef -) 50 mg IVPB Q6H-IV [facility] Last Admin: 10/13/18 09:25 Dose: 50 mg Vasopressin 50 units/ Sodium (Chloride) 100 mls @ 4 mls/hr IVPB ASDIR [facility]; Protocol Last Admin: 10/12/18 20:17 Dose: Not Given Propofol (Diprivan -) 1,000,000 mcg in 100 mls @ 2.49 mls/hr IVPB TITR [facility]; Protocol Last Admin: 10/13/18 05:26 Dose: 10 mcg/kg/min, 4.98 mls/hr Meropenem 1 gm/ Dextrose 100 mls @ 200 mls/hr IVPB Q8H-IV [facility] Last Admin: 10/13/18 09:26 Dose: 200 mls/hr Vancomycin HCl (Vancomycin (Pre-Docked)) 1,000 mg in 250 mls @ 166.667 mls/hr IVPB Q12H [facility]; Protocol Last Admin: 10/13/18 09:24 Dose: 166.667 mls/hr Insulin Aspart (Novolog Vial Sliding Scale -) 1 vial SQ Q6H [facility]; Protocol Last Admin: 10/13/18 04:22 Dose: 4 units Lactobacillus Acidophilus (Bacid -) 1 tab PO DAILY [facility] Last Admin: 10/13/18 09:25 Dose: 1 tab Pantoprazole Sodium (Protonix Iv) 40 mg IVPUSH DAILY [facility] Last Admin: 10/13/18 09:26 Dose: 40 mg Tolterodine Tartrate (Detrol -) 2 mg PO DAILY [facility] Last Admin: 10/13/18 09:53 Dose: 2 mg - Objective Vital Signs: Vital Signs Temperature 100.2 F H 10/13/18 06:00 Pulse Rate 89 10/13/18 06:00 Respiratory Rate 20 10/13/18 06:00 Blood Pressure 112/81 10/13/18 06:00 O2 Sat by Pulse Oximetry (%) 100 10/12/18 22:06 Constitutional: Yes: Calm, Mild Distress, Other (awake and alert) Cardiovascular: Yes: Regular Rate and Rhythm Respiratory: Yes: Intubated, Mechanically Ventilated Gastrointestinal: Yes: Normal Bowel Sounds, Soft Musculoskeletal: Yes: WNL Extremities: Yes: WNL Neurological: Yes: Alert Psychiatric: Yes: Alert Labs: CBC, BMP 10/13/18 06:00 10/13/18 06:00 Assessment/Plan Problem List - Problems (1) GERD (gastroesophageal reflux disease) Code(s): K21.9 - GASTRO-ESOPHAGEAL REFLUX DISEASE WITHOUT ESOPHAGITIS (3) HTN (hypertension) Code(s): I10 - ESSENTIAL (PRIMARY) HYPERTENSION (4) Pacemaker Code(s): Z95.0 - PRESENCE OF CARDIAC PACEMAKER (5) Respiratory failure with hypoxia Code(s): J96.91 - RESPIRATORY FAILURE, UNSPECIFIED WITH HYPOXIA (6) Shock Code(s): R57.9 - SHOCK, UNSPECIFIED (7) Acute on chronic diastolic (congestive) heart failure Code(s): I50.33 - ACUTE ON CHRONIC DIASTOLIC (CONGESTIVE) HEART FAILURE (8) Hyperlipidemia Code(s): E78.5 - HYPERLIPIDEMIA, UNSPECIFIED Qualifiers: Hyperlipidemia type: pure hypercholesterolemia Qualified Code(s): E78.00 - Pure hypercholesterolemia, unspecified; E78.0 - Pure hypercholesterolemia (9) Pulmonary embolism Code(s): I26.99 - OTHER PULMONARY EMBOLISM WITHOUT ACUTE COR PULMONALE (11) Sarcoidosis Code(s): D86.9 - SARCOIDOSIS, UNSPECIFIED (12) Status post tricuspid valve repair Code(s): Z98.890 - OTHER SPECIFIED POSTPROCEDURAL STATES Assessment/Plan 62 y.o. female with PMH of b/l PE diagnosed 09/10/18 on Eliquis, systolic CHF, s/ p PPM, tricuspid repair and bioprosthetic MV repair, Sarcoidosis, hemorrhagic CVA, COPD, HTN, HLD, GERD, s/p cholecystectomy and LT hip surgery initially presented for c/o progressive SOB over the past 2 wks with weakness. Has been reportedly noncompliant with taking Lasix but taking Eliquis. Was transferred to the ICU for respiratory failure requiring intubation, hypotension, hyperthermia. Shock - likely Septic shock in addition to Cardiogenic Acute hypoxemic respiratory failure s/p intubation Hyperthermia B/L PE - r/o new embolism Sarcoidosis Hx of hemorrhagic CVA s/p AICD s/p tricuspid valve repair, bioprosthetic MV replacement Hx of UTI recently on antibiotics patient still intubated clear cut source still not present lactic acid still high plan wean as tolerated continue abx rest as per the team as per icu close monitoring cc 40 min
[2018-10-13] MEDS ORDERED: NOREPINEPHRINE BITARTRATE 8,000 MCG in DEXTROSE 5%-WATER - 492 ML IV SCH (11:45)
[2018-10-13 12:10] LABS: ARTERIAL BLOOD GAS BASE EXCESS 3.9 meq/l (-2-2); ARTERIAL BLOOD GAS PCO2 47.4 mmHg (35-45)
--- NOTE | 2018-10-13 12:20 | EKG ---
Test Reason : Blood Pressure : / mmHG Vent. Rate : 115 BPM Atrial Rate : 115 BPM P-R Int : 142 ms QRS Dur : 156 ms QT Int : 406 ms P-R-T Axes : 035 -41 137 degrees QTc Int : 561 ms Atrial-sensed ventricular-paced rhythm ABNORMAL ECG WHEN COMPARED WITH ECG OF 10-OCT-2018 11:25, VENT. RATE HAS INCREASED BY 9 BPM Confirmed by JOSUE ALLEN, CECILIA ([id number]) on 10/13/2018 12:20:26 PM Referred By: FRANSISCO GUZMÁN Confirmed By:CECILIA SALAS MD
[2018-10-13 12:26] LABS: ARTERIAL BLOOD GAS PO2 < 49 mmHg (80-100)
--- NOTE | 2018-10-13 12:39 | PN ---
Teaching Attending Note Name of Resident: Nubia Landon ATTENDING PHYSICIAN STATEMENT I saw and evaluated the patient. I reviewed the resident's note and discussed the case with the resident. I agree with the resident's findings and plan as documented. SUBJECTIVE: Pt seen and examined in the ICU. Remains intubated, sedated on low dose pressors. Fevers persist but curve slightly down. OBJECTIVE: Vital Signs Period Temp Pulse Resp BP Sys/Zayas Pulse Ox Last 24 Hr 99.7 F-100.2 F 80-95 14-20 70-118/38-81 100-100 Intake & Output 10/10/18 10/11/18 10/12/18 10/13/18 23:59 23:59 23:59 23:59 Intake Total 1244.0 3201.6 1548.6 406 Output Total 4300 2050 1250 700 Balance -3056.0 1151.6 298.6 -294 Weight 93.5 kg 83.461 kg 87.453 kg 85.502 kg Gen: intubated, sedated Heart: RRR Lung: scattered rhonchi Abd: soft, nontender Ext: + edema CBC, BMP 10/13/18 06:00 10/13/18 06:00 Active Medications Cholecalciferol (Vitamin D3 -) 5,000 unit PO DAILY [facility] Last Admin: 10/13/18 09:25 Dose: 5,000 unit Enoxaparin Sodium (Lovenox -) 80 mg SQ BID [facility] Last Admin: 10/13/18 09:25 Dose: 80 mg Fludrocortisone Acetate (Florinef -) 0.05 mg PO DAILY [facility] Last Admin: 10/13/18 09:53 Dose: 0.05 mg Furosemide (Lasix Injection -) 40 mg IVPUSH DAILY [facility] Hydrocortisone Sodium Succinate (Solu-Cortef -) 50 mg IVPB Q6H-IV [facility] Last Admin: 10/13/18 09:25 Dose: 50 mg Propofol (Diprivan -) 1,000,000 mcg in 100 mls @ 2.49 mls/hr IVPB TITR [facility]; Protocol Last Admin: 10/13/18 05:26 Dose: 10 mcg/kg/min, 4.98 mls/hr Meropenem 1 gm/ Dextrose 100 mls @ 200 mls/hr IVPB Q8H-IV [facility] Last Admin: 10/13/18 09:26 Dose: 200 mls/hr Vancomycin HCl (Vancomycin (Pre-Docked)) 1,000 mg in 250 mls @ 166.667 mls/hr IVPB Q12H [facility]; Protocol Last Admin: 10/13/18 09:24 Dose: 166.667 mls/hr Norepinephrine Bitartrate 8, (000 mcg/ Dextrose) 500 mls @ 18.75 mls/hr IV TITR [facility]; Protocol Insulin Aspart (Novolog Vial Sliding Scale -) 1 vial SQ Q6H [facility]; Protocol Last Admin: 10/13/18 11:55 Dose: 6 units Lactobacillus Acidophilus (Bacid -) 1 tab PO DAILY [facility] Last Admin: 10/13/18 09:25 Dose: 1 tab Pantoprazole Sodium (Protonix Iv) 40 mg IVPUSH DAILY [facility] Last Admin: 10/13/18 09:26 Dose: 40 mg Tolterodine Tartrate (Detrol -) 2 mg PO DAILY [facility] Last Admin: 10/13/18 09:53 Dose: 2 mg ASSESSMENT AND PLAN: Acute Hypoxic Respiratory Failure Shock - Septic vs Cardiogenic h/o Bilateral Pulmonary Emboli Pulmonary Sarcoidosis Atrial Fibrillation s/p PPM Thrombocytopenia h/o Intracranial Hemorrhage - continue antibiotics - f/u cultures - IVF to keep CVP 8-12 - titrate pressors to maintain MAP >65 - continue empiric stress dose steroids - check SvO2, may need inotropic support - check ESR, CRP, EKG - rate control - continue anticoagulation - replete lytes - enteral feeds - daily sedation vacations to assess mental status - spontaneous breathing trials as tolerated when mental status improved - DVT/GI prophylaxis - continue ICU monitoring critical care time spent in reviewing chart, evaluating patient and formulating plan 35 min
--- NOTE | 2018-10-13 13:07 | PN ---
Progress Note, Physician History of Present Illness: Pt seen and examined at bedside. She remains in the ICU. She remains intubated. She is making urine. - Current Medication List Current Medications: Active Medications Cholecalciferol (Vitamin D3 -) 5,000 unit PO DAILY [facility] Last Admin: 10/13/18 09:25 Dose: 5,000 unit Enoxaparin Sodium (Lovenox -) 80 mg SQ BID [facility] Last Admin: 10/13/18 09:25 Dose: 80 mg Fludrocortisone Acetate (Florinef -) 0.05 mg PO DAILY [facility] Last Admin: 10/13/18 09:53 Dose: 0.05 mg Furosemide (Lasix Injection -) 40 mg IVPUSH DAILY [facility] Hydrocortisone Sodium Succinate (Solu-Cortef -) 50 mg IVPB Q6H-IV [facility] Last Admin: 10/13/18 09:25 Dose: 50 mg Propofol (Diprivan -) 1,000,000 mcg in 100 mls @ 2.49 mls/hr IVPB TITR [facility]; Protocol Last Admin: 10/13/18 05:26 Dose: 10 mcg/kg/min, 4.98 mls/hr Meropenem 1 gm/ Dextrose 100 mls @ 200 mls/hr IVPB Q8H-IV [facility] Last Admin: 10/13/18 09:26 Dose: 200 mls/hr Vancomycin HCl (Vancomycin (Pre-Docked)) 1,000 mg in 250 mls @ 166.667 mls/hr IVPB Q12H [facility]; Protocol Last Admin: 10/13/18 09:24 Dose: 166.667 mls/hr Norepinephrine Bitartrate 8, (000 mcg/ Dextrose) 500 mls @ 18.75 mls/hr IV TITR [facility]; Protocol Insulin Aspart (Novolog Vial Sliding Scale -) 1 vial SQ Q6H [facility]; Protocol Last Admin: 10/13/18 11:55 Dose: 6 units Lactobacillus Acidophilus (Bacid -) 1 tab PO DAILY [facility] Last Admin: 10/13/18 09:25 Dose: 1 tab Pantoprazole Sodium (Protonix Iv) 40 mg IVPUSH DAILY [facility] Last Admin: 10/13/18 09:26 Dose: 40 mg Tolterodine Tartrate (Detrol -) 2 mg PO DAILY [facility] Last Admin: 10/13/18 09:53 Dose: 2 mg - Objective Vital Signs: Vital Signs Temperature 100.2 F H 10/13/18 06:00 Pulse Rate 90 10/13/18 08:00 Respiratory Rate 17 10/13/18 09:50 Blood Pressure 91/64 10/13/18 08:00 O2 Sat by Pulse Oximetry (%) 100 10/12/18 22:06 Constitutional: Yes: Calm Eyes: Yes: Conjunctiva Clear HENT: Yes: Atraumatic Neck: Yes: Supple Cardiovascular: Yes: S1, S2 Respiratory: Yes: Intubated, Mechanically Ventilated Gastrointestinal: Yes: Normal Bowel Sounds, Soft Genitourinary: Yes: [place] Present Musculoskeletal: Yes: Muscle Weakness Edema: LLE: 1+, RLE: 1+ Neurological: Yes: Lethargy Labs: CBC, BMP 10/13/18 06:00 10/13/18 06:00 - ....Imaging Chest X-ray: Report Reviewed Problem List - Problems (1) DENISHA (acute kidney injury) Code(s): N17.9 - ACUTE KIDNEY FAILURE, UNSPECIFIED (2) Respiratory failure Code(s): J96.90 - RESPIRATORY FAILURE, UNSP, UNSP W HYPOXIA OR HYPERCAPNIA (3) CHF exacerbation Code(s): I50.9 - HEART FAILURE, UNSPECIFIED Qualifiers: Heart failure type: unspecified Qualified Code(s): I50.9 - Heart failure, unspecified Assessment/Plan Current Medications Generic Name Dose Route Start Last Admin Trade Name Freq PRN Reason Stop Dose Admin Cholecalciferol 5,000 unit 10/10/18 10:00 10/13/18 09:25 Vitamin D3 - PO 5,000 unit DAILY [facility] Administration Enoxaparin Sodium 80 mg 10/10/18 11:15 10/13/18 09:25 Lovenox - SQ 80 mg BID [facility] Administration Fludrocortisone Acetate 0.05 mg 10/10/18 11:00 10/13/18 09:53 Florinef - PO 0.05 mg DAILY [facility] Administration Furosemide 40 mg 10/14/18 10:00 Lasix Injection - IVPUSH DAILY [facility] Hydrocortisone Sodium Succinate 50 mg 10/10/18 11:00 10/13/18 09:25 Solu-Cortef - IVPB 50 mg Q6H-IV [facility] Administration Propofol 1,000,000 mcg in 100 mls @ 2.49 mls/hr 10/10/18 10:30 10/13/18 05:26 Diprivan - IVPB 10 mcg/kg/min TITR [facility] 4.98 mls/hr Administration Protocol 5 MCG/KG/MIN Meropenem 1 gm/ Dextrose 100 mls @ 200 mls/hr 10/10/18 18:00 10/13/18 09:26 IVPB 200 mls/hr Q8H-IV [facility] Administration Vancomycin HCl 1,000 mg in 250 mls @ 166.667 mls/hr 10/11/18 20:00 10/13/18 09:24 Vancomycin (Pre-Docked) IVPB 166.667 mls/hr Q12H [facility] Administration Protocol Norepinephrine Bitartrate 8, 500 mls @ 18.75 mls/hr 10/13/18 11:45 000 mcg/ Dextrose IV TITR [facility] Protocol 5 MCG/MIN Insulin Aspart 1 vial 10/12/18 16:30 10/13/18 11:55 Novolog Vial Sliding Scale - SQ 6 units Q6H [facility] Administration Protocol Lactobacillus Acidophilus 1 tab 10/10/18 10:00 10/13/18 09:25 Bacid - PO 1 tab DAILY [facility] Administration Pantoprazole Sodium 40 mg 10/11/18 12:15 10/13/18 09:26 Protonix Iv IVPUSH 40 mg DAILY [facility] Administration Tolterodine Tartrate 2 mg 10/10/18 10:00 10/13/18 09:53 Detrol - PO 2 mg DAILY [facility] Administration Impression 1. DENISHA 2. resp failure 3. chf 4. hx PE 5. hx htn 6. pulm sarcoid 7. shock 8. a-fib 9. hyponatremia Plan - agree with decreasing dose of lasix - change drips from d5w to saline - taper steroids as tolerated - will need better glucose control - follow urine studies - renal function is stable - volume status is improved - discussed with ICU team
[2018-10-13] MEDS ORDERED: MEROPENEM 1 GM in SODIUM CHLORIDE 100 ML IVPB SCH (13:57)
[2018-10-13] MEDS ORDERED: NOREPINEPHRINE BITARTRATE 8,000 MCG in SODIUM CHLORIDE 492 ML IV SCH (14:00)
--- NOTE | 2018-10-13 14:01 | PN ---
Physical Exam: SUBJECTIVE: Patient seen and examined at the bedside, remained febrile overnight with a HgB that is still down trending. The Levophed was restarted last night as the patient had an episode of hypotension with a sBP reportedly in the 50s. Will D/C the vasopressin today and resume pressure support with levophed since the patient has poor cardiac function with an EF of 20-25%. Will plan to titrate down pressors as tolerated. OBJECTIVE: Vital Signs Period Temp Pulse Resp BP Sys/Zayas Pulse Ox Last 24 Hr 99.7 F-100.2 F 80-93 10-20 91-118/62-81 100-100 GENERAL: The patient is intubated, awake, and alert, in no acute distress. HEAD: Normal with no signs of trauma. EYES: PERRL, extraocular movements intact, sclera anicteric, conjunctiva clear. ENT: Ears normal, nares patent, oropharynx with ET and OG tubes in place, dry mucous membranes. NECK: Trachea midline, supple. LUNGS: Breath sounds equal, diffuse ronchi bilaterally, no wheezes, no crackles , no accessory muscle use. HEART: irregular rate and rhythm, S1, S2 without murmur. ABDOMEN: Soft, distended. Hypoactive bowel sounds x4 quadrants. No rebound tenderness ellicited. EXTREMITIES: 1+ radial, dorsalis pedis pulses bilaterally, warm. 2+ edema bilateral lower extremities. NEUROLOGICAL: moves all four extremities, responsive to commands when taken off sedation. Laboratory Results - last 24 hr 10/12/18 10/12/18 10/12/18 18:02 18:50 19:50 WBC RBC Hgb Hct MCV MCH MCHC RDW Plt Count MPV ESR PTT (Actin FS) Anticoagulation Therapy Puncture Site ABG pH ABG pCO2 at Pt Temp ABG pO2 at Pt Temp ABG HCO3 ABG O2 Sat (Measured) ABG O2 Content ABG Base Excess Moody Test O2 Delivery Device Oxygen Flow Rate Vent Mode Vent Rate Mechanical Rate Pressure Support Vent Sodium 124 L Potassium 3.8 Chloride 84 L Carbon Dioxide 27 Anion Gap 13 BUN 29.0 H Creatinine 1.1 Est GFR (CKD-EPI)AfAm 63.20 Est GFR (CKD-EPI)NonAf 54.53 POC Glucometer 339 Random Glucose 346 H* Lactic Acid 2.5 H* Calcium 7.9 L Phosphorus 3.5 Magnesium 2.0 Total Bilirubin AST ALT Alkaline Phosphatase C-Reactive Protein Total Protein Albumin 10/12/18 10/13/18 10/13/18 21:22 04:21 06:00 WBC 14.0 H RBC 3.48 L Hgb 9.4 L Hct 29.1 L MCV 83.6 MCH 27.1 MCHC 32.4 RDW 18.1 H Plt Count 116 L D MPV 12.1 H ESR PTT (Actin FS) Anticoagulation Therapy Puncture Site ABG pH ABG pCO2 at Pt Temp ABG pO2 at Pt Temp ABG HCO3 ABG O2 Sat (Measured) ABG O2 Content ABG Base Excess Moody Test O2 Delivery Device Oxygen Flow Rate Vent Mode Vent Rate Mechanical Rate Pressure Support Vent Sodium Potassium Chloride Carbon Dioxide Anion Gap BUN Creatinine Est GFR (CKD-EPI)AfAm Est GFR (CKD-EPI)NonAf POC Glucometer 291 238 Random Glucose Lactic Acid Calcium Phosphorus Magnesium Total Bilirubin AST ALT Alkaline Phosphatase C-Reactive Protein Total Protein Albumin 10/13/18 10/13/18 10/13/18 06:00 06:00 06:00 WBC RBC Hgb Hct MCV MCH MCHC RDW Plt Count MPV ESR PTT (Actin FS) 28.5 Anticoagulation Therapy Puncture Site ABG pH ABG pCO2 at Pt Temp ABG pO2 at Pt Temp ABG HCO3 ABG O2 Sat (Measured) ABG O2 Content ABG Base Excess Moody Test O2 Delivery Device Oxygen Flow Rate Vent Mode Vent Rate Mechanical Rate Pressure Support Vent Sodium 124 L Potassium 4.4 Chloride 83 L Carbon Dioxide 30 Anion Gap 12 BUN 30.2 H Creatinine 0.9 Est GFR (CKD-EPI)AfAm 80.55 Est GFR (CKD-EPI)NonAf 69.50 POC Glucometer Random Glucose 232 H Lactic Acid 2.5 H* Calcium 8.5 Phosphorus Magnesium Total Bilirubin 0.9 AST 19 ALT 91 H Alkaline Phosphatase 65 C-Reactive Protein 0.9 H Total Protein 5.9 L Albumin 3.2 L 10/13/18 10/13/18 10/13/18 10:40 11:04 11:53 WBC RBC Hgb Hct MCV MCH MCHC RDW Plt Count MPV ESR 4 PTT (Actin FS) Anticoagulation Therapy No Result Required. Puncture Site No Result Required. ABG pH 7.40 ABG pCO2 at Pt Temp 47.4 H ABG pO2 at Pt Temp < 49 L* ABG HCO3 29.0 H ABG O2 Sat (Measured) 34.0 L ABG O2 Content No Result Required. ABG Base Excess 3.9 H Moody Test No Result Required. O2 Delivery Device No Result Required. Oxygen Flow Rate No Result Required. Vent Mode No Result Required. Vent Rate No Result Required. Mechanical Rate No Result Required. Pressure Support Vent No Result Required. Sodium Potassium Chloride Carbon Dioxide Anion Gap BUN Creatinine Est GFR (CKD-EPI)AfAm Est GFR (CKD-EPI)NonAf POC Glucometer 261 Random Glucose Lactic Acid Calcium Phosphorus Magnesium Total Bilirubin AST ALT Alkaline Phosphatase C-Reactive Protein Total Protein Albumin Active Medications Generic Name Dose Route Start Last Admin Trade Name Freq PRN Reason Stop Dose Admin Cholecalciferol 5,000 unit 10/10/18 10:00 10/13/18 09:25 Vitamin D3 - PO 5,000 unit DAILY CHANG Administration Enoxaparin Sodium 80 mg 10/10/18 11:15 10/13/18 09:25 Lovenox - SQ 80 mg BID CHANG Administration Fludrocortisone Acetate 0.05 mg 10/10/18 11:00 10/13/18 09:53 Florinef - PO 0.05 mg DAILY CHANG Administration Furosemide 40 mg 10/14/18 10:00 Lasix Injection - IVPUSH DAILY CHANG Hydrocortisone Sodium Succinate 50 mg 10/10/18 11:00 10/13/18 09:25 Solu-Cortef - IVPB 50 mg Q6H-IV CHANG Administration Propofol 1,000,000 mcg in 100 mls @ 2.49 mls/hr 10/10/18 10:30 10/13/18 05:26 Diprivan - IVPB 10 mcg/kg/min TITR CHANG 4.98 mls/hr Administration Protocol 5 MCG/KG/MIN Vancomycin HCl 1,000 mg in 250 mls @ 166.667 mls/hr 10/11/18 20:00 10/13/18 09:24 Vancomycin (Pre-Docked) IVPB 166.667 mls/hr Q12H CHANG Administration Protocol Meropenem 1 gm/ Sodium 100 mls @ 200 mls/hr 10/13/18 13:57 Chloride IVPB Q8H-IV CHANG Norepinephrine Bitartrate 8, 500 mls @ 18.75 mls/hr 10/13/18 14:00 000 mcg/ Sodium Chloride IV TITR CHANG Protocol 5 MCG/MIN Insulin Aspart 1 vial 10/12/18 16:30 10/13/18 11:55 Novolog Vial Sliding Scale - SQ 6 units Q6H CHANG Administration Protocol Lactobacillus Acidophilus 1 tab 10/10/18 10:00 10/13/18 09:25 Bacid - PO 1 tab DAILY CHANG Administration Pantoprazole Sodium 40 mg 10/11/18 12:15 10/13/18 09:26 Protonix Iv IVPUSH 40 mg DAILY CHANG Administration Tolterodine Tartrate 2 mg 10/10/18 10:00 10/13/18 09:53 Detrol - PO 2 mg DAILY CHANG Administration ASSESSMENT/PLAN: 62 year old female with PMHx of NYHA III systolic CHF, sarcoidosis, HTN, HLD presented to the ed with 2 days of difficulty breathing with wheezing and initially admitted for acute on chronic CHF exacerbation is brought to ICU for acute decompensation of respiratory status with a temperature of 107. Septic shock Hyperpyrexia Acute respiratory distress History of bilateral pulmonary embolism History of cerebral hemorrhage History of pulmonary sarcoidosis History of Afib AICD with complete heart block Neurologic History of cerebral hemorrhage Acute metabolic encephalopathy -Likely secondary to septic shock vs cardiogenic shock -Sedation with Propofol -Hyperpyrexia -patient now off cooling blanket, continue to monitor rectal temperature -Head CT reveals no acute intracranial pathology Pulmonary Acute respiratory distress -Patient is intubated. Tidal volume 400cc, FiO2 50%, RR 14, PEEP 5. -History of pulmonary embolism- however documented not compliant with home Eliquis. -Started on therapeutic dose Lovenox 80mg subq BID for anticoagulation -CTA chest negative for acute pulmonary embolism -Ordered 1 round of duonebs today because the patient said she felt wheezy/ congested - F/U on mixed venous saturation. If < 75% likely a cardiogenic component to shock and patient will require an inotrope -For svo2<75% start milrinone 0.375 mcg/kg/min with a loading dose of 50mcg/ kg. Cardiovascular AICD with complete heart block Troponinemia concerning for ACS -Troponin 0.12 -> 0.54 -> 1.16 -> 0.80 -Patient anticoagulated with Lovenox 80mg subq BID > may need to hold if anemia / thrombocytopenia persists -Cardiac ECHO showing: EF 20-25%, decreased LV function, mild elevation of the LV, biprosthetic mitral valve with mild-moderate regurgitation. - F/U repeat cardiac enzymes and EKG to evaluate for cardiac component to shock as the patient's overall clinical picture not showing much change. -Resumed NE today for pressure support in setting of poor cardiac output, maintain mean arterial pressure equal or greater than 65 mmHg. -Vasopressin currently at 2, will titrate down and d/c -Hydrocortisone 50mg IV Q6 hours -Fludrocortisone 0.05mg PO daily - taper steroids as tolerated - Withhold Coreg and Altace therapies pending hemodynamics stabilization - Withhold Lipitor therapy considering the above-noted abnormal liver function testing, pending resolution of above co-morbidities - Continue diuresis with Lasix> changed from BID to qDaily - Cardiology recommendations appreciated. Gastrointestinal -NPO while patient is intubated -Protonix 40mg IV BID prophylaxis Infectious disease Septic shock; uncertain source -Blood cultures growing gram positive cocci in clusters ?contaminant -Follow urine cultures -Urine for legionella, pneumonia -Lactic acid peaked at 3.7, now plateauing at 2.5, continue to trend down -ID consult (Dr. Mehta) appreciated -Vancomycin 1 gram Q12 hours -Meropenem 1 gram IV Q8 hours -F/U ESR and CRP Renal -Continue diuresis with lasix 40 IV qDaily -F/u urine myoglobin - replace potassium - F/u urine osm and urine lytes -Dr. Lazo following, recommendations appreciated. Endo Blood glucose elevated today, patient is on steroids and all her meds are IV in D5 -will check sugars q6h -SSI - change drips from d5w to saline FEN -IV normal saline bolus, caution not to overload -Hypokalemia, repleted. Follow CMP, replete K as needed -Resume tube feeds: Low calorie/ high protein goal 50cc/hr with 5cc/hr NS flush. Prophylaxis -Patient is on Lovenox 80mg subq BID -Protonix 40mg IV BID prophylaxis Disposition: We will continue to follow the patient. Thank you for this consultative opportunity. Visit type - Emergency Visit Emergency Visit: Yes ED Registration Date: 10/09/18 Care time: The patient presented to the Emergency Department on the above date and was hospitalized for further evaluation of their emergent condition. - New Patient This patient is new to me today: No - Critical Care Critical Care patient: Yes Total Critical Care Time (in minutes): 41 Critical Care Statement: The care of this patient involved high complexity decision making to prevent further life threatening deterioration of the patient 's condition and/or to evaluate & treat vital organ system(s) failure or risk of failure. ATTENDING PHYSICIAN STATEMENT I saw and evaluated the patient. I reviewed the resident's note and discussed the case with the resident. I agree with the resident's findings and plan as documented. SUBJECTIVE: OBJECTIVE: ASSESSMENT AND PLAN:
[2018-10-13] MEDS ORDERED: VASOPRESSIN 20 UNITS/ML VIAL IV ONE (14:27)
--- NOTE | 2018-10-13 15:23 | PN ---
Progress Note, Physician History of Present Illness: Sedated and intubated on Levophed and milrinone gtt. - Current Medication List Current Medications: Active Medications Cholecalciferol (Vitamin D3 -) 5,000 unit PO DAILY CHANG Last Admin: 10/13/18 09:25 Dose: 5,000 unit Enoxaparin Sodium (Lovenox -) 80 mg SQ BID CHANG Last Admin: 10/13/18 09:25 Dose: 80 mg Fludrocortisone Acetate (Florinef -) 0.05 mg PO DAILY CHANG Last Admin: 10/13/18 09:53 Dose: 0.05 mg Furosemide (Lasix Injection -) 40 mg IVPUSH DAILY [facility] Hydrocortisone Sodium Succinate (Solu-Cortef -) 50 mg IVPB Q6H-IV CHANG Last Admin: 10/13/18 14:24 Dose: 50 mg Propofol (Diprivan -) 1,000,000 mcg in 100 mls @ 2.49 mls/hr IVPB TITR CHANG; Protocol Last Admin: 10/13/18 05:26 Dose: 10 mcg/kg/min, 4.98 mls/hr Vancomycin HCl (Vancomycin (Pre-Docked)) 1,000 mg in 250 mls @ 166.667 mls/hr IVPB Q12H CHANG; Protocol Last Admin: 10/13/18 09:24 Dose: 166.667 mls/hr Meropenem 1 gm/ Sodium (Chloride) 100 mls @ 200 mls/hr IVPB Q8H-IV CHANG Norepinephrine Bitartrate 8, (000 mcg/ Dextrose) 500 mls @ 18.75 mls/hr IV TITR CHANG; Protocol Milrinone Lactate/Dextrose (Milrinone 20mg/100ml Ivpb -) 20,000 mcg in 100 mls @ 9.619 mls/hr IVPB TITR CHANG; Protocol Insulin Aspart (Novolog Vial Sliding Scale -) 1 vial SQ Q6H CHANG; Protocol Last Admin: 10/13/18 11:55 Dose: 6 units Lactobacillus Acidophilus (Bacid -) 1 tab PO DAILY CHANG Last Admin: 10/13/18 09:25 Dose: 1 tab Pantoprazole Sodium (Protonix Iv) 40 mg IVPUSH DAILY CHANG Last Admin: 10/13/18 09:26 Dose: 40 mg Tolterodine Tartrate (Detrol -) 2 mg PO DAILY CHANG Last Admin: 10/13/18 09:53 Dose: 2 mg - Objective Vital Signs: Vital Signs Temperature 100.3 F H 10/13/18 14:00 Pulse Rate 65 10/13/18 14:00 Respiratory Rate 24 H 10/13/18 14:05 Blood Pressure 72/60 L 10/13/18 14:00 O2 Sat by Pulse Oximetry (%) 100 10/12/18 22:06 Constitutional: Yes: No Distress, Calm Neck: Yes: Supple Cardiovascular: Yes: Regular Rate and Rhythm Respiratory: Yes: Intubated, Mechanically Ventilated, Rhonchi Gastrointestinal: Yes: Soft, Hypoactive Bowel Sounds Edema: No Labs: CBC, BMP 10/13/18 06:00 10/13/18 06:00 - ....Imaging Chest X-ray: Report Reviewed (NAD) EKG: Report Reviewed (ECG :A-V-paced) Assessment/Plan Echocardiography performed March 29, 2018 revealed moderately reduced left ventricular systolic function with LVEF between 35-40%, Bioprosthetic mitral valve with mild mitral valve regurgitation,mild tricuspid valve regurgitation Echocardiography performed October 11, 2018 revealed left ventricular cavity dilatation with severe reduction in left ventricular ejection fraction estimated LVEF between 20-25% Problem List - Problems (1) GERD (gastroesophageal reflux disease) Code(s): K21.9 - GASTRO-ESOPHAGEAL REFLUX DISEASE WITHOUT ESOPHAGITIS (3) HTN (hypertension) Code(s): I10 - ESSENTIAL (PRIMARY) HYPERTENSION (4) Pacemaker Code(s): Z95.0 - PRESENCE OF CARDIAC PACEMAKER (5) Respiratory failure with hypoxia Code(s): J96.91 - RESPIRATORY FAILURE, UNSPECIFIED WITH HYPOXIA (6) Shock Code(s): R57.9 - SHOCK, UNSPECIFIED (7) Acute on chronic diastolic (congestive) heart failure Code(s): I50.33 - ACUTE ON CHRONIC DIASTOLIC (CONGESTIVE) HEART FAILURE (8) Hyperlipidemia Code(s): E78.5 - HYPERLIPIDEMIA, UNSPECIFIED Qualifiers: Hyperlipidemia type: pure hypercholesterolemia Qualified Code(s): E78.00 - Pure hypercholesterolemia, unspecified; E78.0 - Pure hypercholesterolemia (9) Pulmonary embolism Code(s): I26.99 - OTHER PULMONARY EMBOLISM WITHOUT ACUTE COR PULMONALE (11) Sarcoidosis Code(s): D86.9 - SARCOIDOSIS, UNSPECIFIED (12) Status post tricuspid valve repair Code(s): Z98.890 - OTHER SPECIFIED POSTPROCEDURAL STATES 1. Acute Hypoxic Respiratory Failure on mechanical ventilation 2. Probable septic shock currently on pressors- source of sepsis to be determined 3. 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 Acute on chroic Systolic left ventricular failure related to non-ischemic dilated cardiomyopathy, Class I-II [place] [employer] classification left ventricular failure- LVEF between 35-40% on echocardiography performed March 29, 2018/LVEF between 20-25% on echocardiography performed yesterday October 11, 2018 5. Post ICD implantation for syncope and complete heart block 6. Post tricuspid valve annuloplasty, for management of severe tricuspid valve regurgitation 7. History of pulmonary sarcoidosis without myocardial sarcoidosis 8. History of recent pulmonary thromboembolism on anticoagulation therapy 10. Hyponatremia and Hypokalemia 11. Anemia and thrombocytopenia 12. h/o Cerebellar Hemorrhage 13. Post-op Afib PLAN: 1. Wean Levophed gtt to maintain mean arterial pressure equal or greater than 65 mmHg 2. Abx course per C&S, empiric stress dose steroids 3. If anemia and thrombocytopenia are persistent Lovenox therapy may need to be withheld 4. Withhold Coreg and Altace therapies pending hemodynamics stabilization 5. Undergoing inotropic diuresis with monitor diuretic response, renal fxn and electrolytes 6. Withhold Lipitor therapy considering the above-noted abnormal liver function testing, pending resolution of above co-morbidities 7. Enteral feeds
--- NOTE | 2018-10-13 15:58 | PN ---
Progress Note, Physician Chief Complaint: intubated, unable to verbalize complaints at this time but she is awake and following simple commands. History of Present Illness: Patient is a 62 year old female with PMHx of NYHA III systolic CHF, sarcoidosis , HTN, diabetes, HLD presents to [facility] with 2 days of difficulty breathing with wheezing. Hospitalization complicated when patient was found to be in septic shock requiring pressors, intubation. She was also noted to be hyperthermic with rectal temp of 107F. She remains in the ICU for further management. - Current Medication List Current Medications: Active Medications Cholecalciferol (Vitamin D3 -) 5,000 unit PO DAILY CHANG Last Admin: 10/13/18 09:25 Dose: 5,000 unit Enoxaparin Sodium (Lovenox -) 80 mg SQ BID CHANG Last Admin: 10/13/18 09:25 Dose: 80 mg Fludrocortisone Acetate (Florinef -) 0.05 mg PO DAILY CHANG Last Admin: 10/13/18 09:53 Dose: 0.05 mg Furosemide (Lasix Injection -) 40 mg IVPUSH DAILY CHANG Hydrocortisone Sodium Succinate (Solu-Cortef -) 50 mg IVPB Q6H-IV CHANG Last Admin: 10/13/18 14:24 Dose: 50 mg Propofol (Diprivan -) 1,000,000 mcg in 100 mls @ 2.49 mls/hr IVPB TITR CHANG; Protocol Last Admin: 10/13/18 05:26 Dose: 10 mcg/kg/min, 4.98 mls/hr Vancomycin HCl (Vancomycin (Pre-Docked)) 1,000 mg in 250 mls @ 166.667 mls/hr IVPB Q12H CHANG; Protocol Last Admin: 10/13/18 09:24 Dose: 166.667 mls/hr Meropenem 1 gm/ Sodium (Chloride) 100 mls @ 200 mls/hr IVPB Q8H-IV CHANG Norepinephrine Bitartrate 8, (000 mcg/ Dextrose) 500 mls @ 18.75 mls/hr IV TITR CHANG; Protocol Milrinone Lactate/Dextrose (Milrinone 20mg/100ml Ivpb -) 20,000 mcg in 100 mls @ 9.619 mls/hr IVPB TITR CHANG; Protocol Insulin Aspart (Novolog Vial Sliding Scale -) 1 vial SQ Q6H CHANG; Protocol Last Admin: 10/13/18 11:55 Dose: 6 units Lactobacillus Acidophilus (Bacid -) 1 tab PO DAILY [facility] Last Admin: 10/13/18 09:25 Dose: 1 tab Pantoprazole Sodium (Protonix Iv) 40 mg IVPUSH DAILY [facility] Last Admin: 10/13/18 09:26 Dose: 40 mg Tolterodine Tartrate (Detrol -) 2 mg PO DAILY [facility] Last Admin: 10/13/18 09:53 Dose: 2 mg - Objective Vital Signs: Vital Signs Temperature 100.3 F H 10/13/18 14:00 Pulse Rate 65 10/13/18 14:00 Respiratory Rate 24 H 10/13/18 14:05 Blood Pressure 72/60 L 10/13/18 14:00 O2 Sat by Pulse Oximetry (%) 100 10/12/18 22:06 Constitutional: Yes: Anxious Eyes: Yes: WNL HENT: Yes: Atraumatic Neck: Yes: Supple Cardiovascular: Yes: Other Respiratory: Yes: Intubated, Mechanically Ventilated, Poor Air Entry Gastrointestinal: Yes: Normal Bowel Sounds, Abdomen, Obese ...Rectal Exam: Yes: Deferred Labs: CBC, BMP 10/13/18 06:00 10/13/18 06:00 Problem List - Problems (1) Respiratory failure with hypoxia Assessment/Plan: remains intubated, sedated care per icu Code(s): J96.91 - RESPIRATORY FAILURE, UNSPECIFIED WITH HYPOXIA (2) DENISHA (acute kidney injury) Assessment/Plan: monitor labs daily renal following Code(s): N17.9 - ACUTE KIDNEY FAILURE, UNSPECIFIED (3) GERD (gastroesophageal reflux disease) Assessment/Plan: protonix iv push Code(s): K21.9 - GASTRO-ESOPHAGEAL REFLUX DISEASE WITHOUT ESOPHAGITIS (4) HTN (hypertension) Assessment/Plan: monitor bp. cardiology following cardiac meds on hold Code(s): I10 - ESSENTIAL (PRIMARY) HYPERTENSION (5) Metabolic encephalopathy Assessment/Plan: Likely secondary to septic shock -Sedation with Propofol -Head CT reveals no acute intracranial pathology -interruption of IV sedation as per ICU protocol Code(s): G93.41 - METABOLIC ENCEPHALOPATHY (6) Pacemaker Code(s): Z95.0 - PRESENCE OF CARDIAC PACEMAKER (7) Troponin I above reference range Assessment/Plan: Troponin 0.12 -> 0.54 -> 1.16 -> 0.80 -Cardiology consultation appreciated. -Patient anticoagulated with Lovenox 80mg subq BID -Norepinepherine & Vasopressin gtt to maintain MAP>60 -Hydrocortisone 50mg IV Q6 hours -Fludrocortisone 0.05mg PO daily Code(s): R74.8 - ABNORMAL LEVELS OF OTHER SERUM ENZYMES (8) Acute on chronic diastolic (congestive) heart failure Assessment/Plan: non-compliant with diuretic therapy c/w lasix 40mg IV q 12H if BP tolerates cardiology consultation appreciated Code(s): I50.33 - ACUTE ON CHRONIC DIASTOLIC (CONGESTIVE) HEART FAILURE (9) Hyperlipidemia Code(s): E78.5 - HYPERLIPIDEMIA, UNSPECIFIED Qualifiers: Hyperlipidemia type: pure hypercholesterolemia Qualified Code(s): E78.00 - Pure hypercholesterolemia, unspecified; E78.0 - Pure hypercholesterolemia (10) Hypertensive cardiomyopathy Code(s): I11.9 - HYPERTENSIVE HEART DISEASE WITHOUT HEART FAILURE; I42.9 - CARDIOMYOPATHY, UNSPECIFIED Qualifiers: Heart failure presence: with heart failure Qualified Code(s): I11.0 - Hypertensive heart disease with heart failure; I43 - Cardiomyopathy in diseases classified elsewhere (11) Mitral valvular prolapse Code(s): I34.1 - NONRHEUMATIC MITRAL (VALVE) PROLAPSE (12) Presence of single implantable cardioverter-defibrillator (ICD) Code(s): Z95.810 - PRESENCE OF AUTOMATIC (IMPLANTABLE) CARDIAC DEFIBRILLATOR (13) Pulmonary embolism Code(s): I26.99 - OTHER PULMONARY EMBOLISM WITHOUT ACUTE COR PULMONALE (14) Pulmonary edema Code(s): J81.1 - CHRONIC PULMONARY EDEMA Qualifiers: Chronicity: acute Qualified Code(s): J81.0 - Acute pulmonary edema (15) Prophylactic measure Assessment/Plan: fen Code(s): Z29.9 - ENCOUNTER FOR PROPHYLACTIC MEASURES, UNSPECIFIED
[2018-10-13] MEDS ORDERED: NOREPINEPHRINE BITARTRATE 4 MG/4 ML ML IV ONE (16:29)
[2018-10-13] MEDS ORDERED: SODIUM CHLORIDE 100 ML IVPB ONE (16:29)
[2018-10-13] MEDS: MILRINONE 20MG/100ML IVPB - 20,000 MCG/100 ML ML IVPB SCH (16:37)
[2018-10-13] MEDS: NOREPINEPHRINE BITARTRATE 8,000 MCG in DEXTROSE 5%-WATER - 492 ML IV SCH (16:48)
[2018-10-13] MEDS ORDERED: BENZOIN/ALOE VERA/STORAX/TOLU 58 ML BOTTLE ONE (17:01)
[2018-10-13] MEDS: MEROPENEM 1 GM in SODIUM CHLORIDE 100 ML IVPB SCH (17:07)
[2018-10-13] MEDS: INSULIN (LEVEMIR) 100 UNITS/ML UNITS SQ SCH (21:14)
--- NOTE | 2018-10-13 21:23 | PN ---
Progress Note, Physician Chief Complaint: intubated, unable to verbalize complaints at this time but she is awake and following simple commands. History of Present Illness: Patient is a 62 year old female with PMHx of NYHA III systolic CHF, sarcoidosis , HTN, diabetes, HLD presents to [facility] with 2 days of difficulty breathing with wheezing. Hospitalization complicated when patient was found to be in septic shock requiring pressors, intubation. She was also noted to be hyperthermic with rectal temp of 107F. She remains in the ICU for further management. - Current Medication List Current Medications: Active Medications Cholecalciferol (Vitamin D3 -) 5,000 unit PO DAILY CHANG Last Admin: 10/13/18 09:25 Dose: 5,000 unit Enoxaparin Sodium (Lovenox -) 80 mg SQ BID CHANG Last Admin: 10/13/18 21:14 Dose: 80 mg Fludrocortisone Acetate (Florinef -) 0.05 mg PO DAILY [facility]ANG Last Admin: 10/13/18 09:53 Dose: 0.05 mg Furosemide (Lasix Injection -) 40 mg IVPUSH DAILY [facility]ANG Hydrocortisone Sodium Succinate (Solu-Cortef -) 50 mg IVPB Q6H-IV CHANG Last Admin: 10/13/18 21:13 Dose: 50 mg Propofol (Diprivan -) 1,000,000 mcg in 100 mls @ 2.49 mls/hr IVPB TITR [facility]ANG; Protocol Last Admin: 10/13/18 21:12 Dose: Not Given Vancomycin HCl (Vancomycin (Pre-Docked)) 1,000 mg in 250 mls @ 166.667 mls/hr IVPB Q12H [facility]ANG; Protocol Last Admin: 10/13/18 20:30 Dose: 166.667 mls/hr Meropenem 1 gm/ Sodium (Chloride) 100 mls @ 200 mls/hr IVPB Q8H-IV CHANG Last Admin: 10/13/18 17:07 Dose: 200 mls/hr Norepinephrine Bitartrate 8, (000 mcg/ Dextrose) 500 mls @ 18.75 mls/hr IV TITR [facility]ANG; Protocol Last Admin: 10/13/18 16:48 Dose: 3 mcg/min, 11.25 mls/hr Milrinone Lactate/Dextrose (Milrinone 20mg/100ml Ivpb -) 20,000 mcg in 100 mls @ 9.619 mls/hr IVPB TITR [facility]; Protocol Last Admin: 10/13/18 16:37 Dose: 0.375 mcg/kg/min, 9.619 mls/hr Insulin Aspart (Novolog Vial Sliding Scale -) 1 vial SQ Q6H [facility]; Protocol Last Admin: 10/13/18 17:11 Dose: 4 units Insulin Detemir (Levemir Vial) 5 units SQ HS [facility] Last Admin: 10/13/18 21:14 Dose: 5 units Lactobacillus Acidophilus (Bacid -) 1 tab PO DAILY [facility] Last Admin: 10/13/18 09:25 Dose: 1 tab Pantoprazole Sodium (Protonix Iv) 40 mg IVPUSH DAILY [facility] Last Admin: 10/13/18 09:26 Dose: 40 mg Tolterodine Tartrate (Detrol -) 2 mg PO DAILY [facility] Last Admin: 10/13/18 09:53 Dose: 2 mg - Objective Vital Signs: Vital Signs Temperature 100.3 F H 10/13/18 14:00 Pulse Rate 94 H 10/13/18 18:00 Respiratory Rate 20 10/13/18 20:30 Blood Pressure 97/85 10/13/18 18:00 O2 Sat by Pulse Oximetry (%) 100 10/12/18 22:06 Constitutional: Yes: No Distress Eyes: Yes: WNL HENT: Yes: Atraumatic Cardiovascular: Yes: Regular Rate and Rhythm Respiratory: Yes: Accessory Muscle Use, Intubated, Mechanically Ventilated, Poor Air Entry Gastrointestinal: Yes: Abdomen, Obese Labs: CBC, BMP 10/13/18 06:00 10/13/18 06:00 Problem List - Problems (1) Septic shock Assessment/Plan: Shock - likely septic shock in addition to cardiogenic Sedated and intubated on Levophed and milrinone gtt. lactic acid remains elevated on meropenem ID following will re culture Code(s): A41.9 - SEPSIS, UNSPECIFIED ORGANISM; R65.21 - SEVERE SEPSIS WITH SEPTIC SHOCK (2) Respiratory failure with hypoxia Assessment/Plan: remains intubated, sedated care per icu Code(s): J96.91 - RESPIRATORY FAILURE, UNSPECIFIED WITH HYPOXIA (3) DENISHA (acute kidney injury) Assessment/Plan: monitor labs daily renal following Code(s): N17.9 - ACUTE KIDNEY FAILURE, UNSPECIFIED (4) GERD (gastroesophageal reflux disease) Assessment/Plan: protonix iv push Code(s): K21.9 - GASTRO-ESOPHAGEAL REFLUX DISEASE WITHOUT ESOPHAGITIS (5) HTN (hypertension) Assessment/Plan: monitor bp. cardiology following cardiac meds on hold Code(s): I10 - ESSENTIAL (PRIMARY) HYPERTENSION (6) Pacemaker Code(s): Z95.0 - PRESENCE OF CARDIAC PACEMAKER (7) Troponin I above reference range Assessment/Plan: Troponin 0.12 -> 0.54 -> 1.16 -> 0.80 -Cardiology consultation appreciated. -Patient anticoagulated with Lovenox 80mg subq BID -Norepinepherine & Vasopressin gtt to maintain MAP>60 -Hydrocortisone 50mg IV Q6 hours -Fludrocortisone 0.05mg PO daily Code(s): R74.8 - ABNORMAL LEVELS OF OTHER SERUM ENZYMES (8) Acute on chronic diastolic (congestive) heart failure Assessment/Plan: non-compliant with diuretic therapy c/w lasix 40mg IV q 12H if BP tolerates cardiology consultation appreciated Code(s): I50.33 - ACUTE ON CHRONIC DIASTOLIC (CONGESTIVE) HEART FAILURE (9) Hyperlipidemia Assessment/Plan: start statins when more stable. Code(s): E78.5 - HYPERLIPIDEMIA, UNSPECIFIED Qualifiers: Hyperlipidemia type: pure hypercholesterolemia Qualified Code(s): E78.00 - Pure hypercholesterolemia, unspecified; E78.0 - Pure hypercholesterolemia (10) Hypertensive cardiomyopathy Code(s): I11.9 - HYPERTENSIVE HEART DISEASE WITHOUT HEART FAILURE; I42.9 - CARDIOMYOPATHY, UNSPECIFIED Qualifiers: Heart failure presence: with heart failure Qualified Code(s): I11.0 - Hypertensive heart disease with heart failure; I43 - Cardiomyopathy in diseases classified elsewhere (11) Mitral valvular prolapse Code(s): I34.1 - NONRHEUMATIC MITRAL (VALVE) PROLAPSE (12) Diabetes Assessment/Plan: on novolog ss, add levemir 5 for elevated bgms Code(s): E11.9 - TYPE 2 DIABETES MELLITUS WITHOUT COMPLICATIONS (13) Prophylactic measure Assessment/Plan: fen on pressors started on jevity feeds via ngt on lovenox bid Code(s): Z29.9 - ENCOUNTER FOR PROPHYLACTIC MEASURES, UNSPECIFIED Visit type - Emergency Visit Emergency Visit: Yes ED Registration Date: 10/09/18 Care time: The patient presented to the Emergency Department on the above date and was hospitalized for further evaluation of their emergent condition. - New Patient This patient is new to me today: No - Critical Care Critical Care patient: Yes Total Critical Care Time (in minutes): 45 Critical Care Statement: The care of this patient involved high complexity decision making to prevent further life threatening deterioration of the patient 's condition and/or to evaluate & treat vital organ system(s) failure or risk of failure.
[2018-10-14] MEDS ORDERED: SODIUM CHLORIDE 100 ML IVPB ONE ×3 (02:52→16:16)
[2018-10-14] MEDS ORDERED: MEROPENEM 1 GM VIAL (RESTRICTED TO ID) IVPB ONE ×3 (02:52→16:16)
[2018-10-14] MEDS: MEROPENEM 1 GM in SODIUM CHLORIDE 100 ML IVPB SCH ×3 (02:54→17:00)
[2018-10-14] MEDS: HYDROCORTISONE SOD SUCCINATE 100 MG/2 ML VIAL IVPB SCH ×4 (02:55→21:33)
[2018-10-14] MEDS: INSULIN SLIDING SCALE (NOVOLOG) 1 VIAL SQ SCH ×4 (04:12→21:38)
[2018-10-14 06:31] LABS: HEMATOCRIT 32.4 % (32.4-45.2); HEMOGLOBIN 10.4 GM/dL (10.7-15.3); MCH 26.9 pg (25.7-33.7); MCHC 32.1 g/dl (32.0-36.0); MEAN CELL VOLUME 83.9 fl (80-96); PLATELET COUNT 127 K/MM3 (134-434); RBC 3.87 M/mm3 (3.60-5.2); RDW 18.4 % (11.6-15.6)
[2018-10-14 07:03] LABS: ALBUMIN 3.2 g/dl (3.4-5.0); BLOOD UREA NITROGEN 26.9 mg/dL (7-18); CALCIUM 8.7 mg/dL (8.5-10.1); CREATININE 0.9 mg/dL (0.55-1.3); MAGNESIUM 2.3 mg/dL (1.8-2.4); PHOSPHOROUS 2.4 mg/dL (2.5-4.9); POTASSIUM 3.6 mmol/L (3.5-5.1); TOT PROT 6.2 g/dl (6.4-8.2)
--- NOTE | 2018-10-14 07:05 | PN ---
Physical Exam: SUBJECTIVE: Patient seen and examined at bedside. Patient started on Milrinone yesterday afternoon for presumptive cardiogenic shock/cardiomyopathy/ DCM with subsequent ectopy. Milrinone stopped. Patient remains on low dose Levophed gtt. Vital Signs Period Temp Pulse Resp BP Sys/Zayas Pulse Ox Last 24 Hr 98.2 F-100.3 F 65-116 10-24 72-121/58-104 99-99 General: Intubated, sedated CV: S1, S2, RRR Respiratory: scattered rhonchi Abdomen: soft, non-tender, (+) bowel sounds Extremity: pedal edema (documented on previous PE) Integumentary: linear macular rash in abdominal folds Laboratory Results - last 24 hr 10/13/18 10/13/18 10/13/18 06:00 06:00 06:00 WBC 14.0 H RBC 3.48 L Hgb 9.4 L Hct 29.1 L MCV 83.6 MCH 27.1 MCHC 32.4 RDW 18.1 H Plt Count 116 L D MPV 12.1 H ESR PTT (Actin FS) 28.5 Anticoagulation Therapy Puncture Site ABG pH ABG pCO2 at Pt Temp ABG pO2 at Pt Temp ABG HCO3 ABG O2 Sat (Measured) ABG O2 Content ABG Base Excess Moody Test O2 Delivery Device Oxygen Flow Rate Vent Mode Vent Rate Mechanical Rate Pressure Support Vent Sodium 124 L Potassium 4.4 Chloride 83 L Carbon Dioxide 30 Anion Gap 12 BUN 30.2 H Creatinine 0.9 Est GFR (CKD-EPI)AfAm 80.55 Est GFR (CKD-EPI)NonAf 69.50 POC Glucometer Random Glucose 232 H Lactic Acid Calcium 8.5 Phosphorus Magnesium Total Bilirubin 0.9 AST 19 ALT 91 H Alkaline Phosphatase 65 Creatine Kinase Troponin I C-Reactive Protein 0.9 H Total Protein 5.9 L Albumin 3.2 L 10/13/18 10/13/18 10/13/18 06:00 10:40 11:04 WBC RBC Hgb Hct MCV MCH MCHC RDW Plt Count MPV ESR 4 PTT (Actin FS) Anticoagulation Therapy No Result Required. Puncture Site No Result Required. ABG pH 7.40 ABG pCO2 at Pt Temp 47.4 H ABG pO2 at Pt Temp < 49 L* ABG HCO3 29.0 H ABG O2 Sat (Measured) 34.0 L ABG O2 Content No Result Required. ABG Base Excess 3.9 H Moody Test No Result Required. O2 Delivery Device No Result Required. Oxygen Flow Rate No Result Required. Vent Mode No Result Required. Vent Rate No Result Required. Mechanical Rate No Result Required. Pressure Support Vent No Result Required. Sodium Potassium Chloride Carbon Dioxide Anion Gap BUN Creatinine Est GFR (CKD-EPI)AfAm Est GFR (CKD-EPI)NonAf POC Glucometer Random Glucose Lactic Acid 2.5 H* Calcium Phosphorus Magnesium Total Bilirubin AST ALT Alkaline Phosphatase Creatine Kinase Troponin I C-Reactive Protein Total Protein Albumin 10/13/18 10/13/18 10/13/18 11:53 17:10 21:29 WBC RBC Hgb Hct MCV MCH MCHC RDW Plt Count MPV ESR PTT (Actin FS) Anticoagulation Therapy Puncture Site ABG pH ABG pCO2 at Pt Temp ABG pO2 at Pt Temp ABG HCO3 ABG O2 Sat (Measured) ABG O2 Content ABG Base Excess Moody Test O2 Delivery Device Oxygen Flow Rate Vent Mode Vent Rate Mechanical Rate Pressure Support Vent Sodium Potassium Chloride Carbon Dioxide Anion Gap BUN Creatinine Est GFR (CKD-EPI)AfAm Est GFR (CKD-EPI)NonAf POC Glucometer 261 250 227 Random Glucose Lactic Acid Calcium Phosphorus Magnesium Total Bilirubin AST ALT Alkaline Phosphatase Creatine Kinase Troponin I C-Reactive Protein Total Protein Albumin 10/14/18 10/14/18 10/14/18 04:09 05:30 05:30 WBC RBC 3.87 Hgb 10.4 L Hct 32.4 MCV 83.9 MCH 26.9 MCHC 32.1 RDW 18.4 H Plt Count 127 L MPV 11.0 ESR PTT (Actin FS) 27.6 Anticoagulation Therapy Puncture Site ABG pH ABG pCO2 at Pt Temp ABG pO2 at Pt Temp ABG HCO3 ABG O2 Sat (Measured) ABG O2 Content ABG Base Excess Moody Test O2 Delivery Device Oxygen Flow Rate Vent Mode Vent Rate Mechanical Rate Pressure Support Vent Sodium Potassium Chloride Carbon Dioxide Anion Gap BUN Creatinine Est GFR (CKD-EPI)AfAm Est GFR (CKD-EPI)NonAf POC Glucometer 266 Random Glucose Lactic Acid Calcium Phosphorus Magnesium Total Bilirubin AST ALT Alkaline Phosphatase Creatine Kinase Troponin I C-Reactive Protein Total Protein Albumin 10/14/18 05:30 WBC RBC Hgb Hct MCV MCH MCHC RDW Plt Count MPV ESR PTT (Actin FS) Anticoagulation Therapy Puncture Site ABG pH ABG pCO2 at Pt Temp ABG pO2 at Pt Temp ABG HCO3 ABG O2 Sat (Measured) ABG O2 Content ABG Base Excess Moody Test O2 Delivery Device Oxygen Flow Rate Vent Mode Vent Rate Mechanical Rate Pressure Support Vent Sodium 127 L Potassium 3.6 Chloride 86 L Carbon Dioxide 30 Anion Gap 11 BUN 26.9 H Creatinine 0.9 Est GFR (CKD-EPI)AfAm 79.98 Est GFR (CKD-EPI)NonAf 69.01 POC Glucometer Random Glucose 227 H Lactic Acid Calcium 8.7 Phosphorus 2.4 L Magnesium 2.3 Total Bilirubin 1.0 AST 27 ALT 74 H Alkaline Phosphatase 81 Creatine Kinase 176 Troponin I 0.10 H C-Reactive Protein Total Protein 6.2 L Albumin 3.2 L Active Medications Generic Name Dose Route Start Last Admin Trade Name Freq PRN Reason Stop Dose Admin Cholecalciferol 5,000 unit 10/10/18 10:00 10/13/18 09:25 Vitamin D3 - PO 5,000 unit DAILY CHANG Administration Enoxaparin Sodium 80 mg 10/10/18 11:15 10/13/18 21:14 Lovenox - SQ 80 mg BID CHANG Administration Fludrocortisone Acetate 0.05 mg 10/10/18 11:00 10/13/18 09:53 Florinef - PO 0.05 mg DAILY CHANG Administration Furosemide 40 mg 10/14/18 10:00 Lasix Injection - IVPUSH DAILY CHANG Hydrocortisone Sodium Succinate 50 mg 10/10/18 11:00 10/14/18 02:55 Solu-Cortef - IVPB 50 mg Q6H-IV CHANG Administration Propofol 1,000,000 mcg in 100 mls @ 2.49 mls/hr 10/10/18 10:30 10/13/18 21:12 Diprivan - IVPB Not Given TITR CHANG Protocol 5 MCG/KG/MIN Vancomycin HCl 1,000 mg in 250 mls @ 166.667 mls/hr 10/11/18 20:00 10/13/18 20:30 Vancomycin (Pre-Docked) IVPB 166.667 mls/hr Q12H CHANG Administration Protocol Meropenem 1 gm/ Sodium 100 mls @ 200 mls/hr 10/13/18 14:25 10/14/18 02:54 Chloride IVPB 200 mls/hr Q8H-IV CHANG Administration Norepinephrine Bitartrate 8, 500 mls @ 18.75 mls/hr 10/13/18 14:32 10/14/18 04:01 000 mcg/ Dextrose IV 5 mcg/min TITR CHANG 18.75 mls/hr Titration Protocol 5 MCG/MIN Milrinone Lactate/Dextrose 20,000 mcg in 100 mls @ 9.619 mls/hr 10/13/18 15: 15 10/14/18 03:23 Milrinone 20mg/100ml Ivpb - IVPB 0 mcg/kg/min TITR CHANG 0 mls/hr Titration Protocol 0.375 MCG/KG/MIN Insulin Aspart 1 vial 10/12/18 16:30 10/14/18 04:12 Novolog Vial Sliding Scale - SQ 6 units Q6H CHANG Administration Protocol Insulin Detemir 5 units 10/13/18 22:00 10/13/18 21:14 Levemir Vial SQ 5 units HS CHANG Administration Lactobacillus Acidophilus 1 tab 10/10/18 10:00 10/13/18 09:25 Bacid - PO 1 tab DAILY CHANG Administration Pantoprazole Sodium 40 mg 10/11/18 12:15 10/13/18 09:26 Protonix Iv IVPUSH 40 mg DAILY CHANG Administration Tolterodine Tartrate 2 mg 10/10/18 10:00 10/13/18 09:53 Detrol - PO 2 mg DAILY CHANG Administration ASSESSMENT/PLAN: 62 year old female with PMHx of NYHA III systolic CHF, sarcoidosis, HTN, HLD presented to the ed with 2 days of difficulty breathing with wheezing and initially admitted for acute on chronic CHF exacerbation is brought to ICU for acute decompensation of respiratory status with a temperature of 107. Septic shock Hyperpyrexia Acute respiratory distress History of bilateral pulmonary embolism History of cerebral hemorrhage History of pulmonary sarcoidosis History of Afib AICD with complete heart block Neurologic History of cerebral hemorrhage Acute metabolic encephalopathy -Likely secondary to septic shock vs cardiogenic shock -Sedation with Propofol -Hyperpyrexia -patient now off cooling blanket, continue to monitor rectal temperature -Head CT reveals no acute intracranial pathology Pulmonary Acute respiratory distress -Patient is intubated. - Trial CPAP w/TV 300, air cuff leak testing -History of pulmonary embolism- however documented not compliant with home Eliquis. -Started on therapeutic dose Lovenox 80mg subq BID for anticoagulation -CTA chest negative for acute pulmonary embolism -Ordered 1 round of duonebs today because the patient said she felt wheezy/ congested Cardiovascular AICD with complete heart block Troponinemia concerning for ACS -Troponin 0.10 today (< 0.80 < 1.16 , 0.54 < 0.12) -Patient anticoagulated with Lovenox 80mg subq BID > may need to hold if anemia / thrombocytopenia persists -Cardiac ECHO showing: EF 20-25%, decreased LV function, mild elevation of the LV, biprosthetic mitral valve with mild-moderate regurgitation. - F/U repeat cardiac enzymes and EKG to evaluate for cardiac component to shock as the patient's overall clinical picture not showing much change. -Resumed NE today for pressure support in setting of poor cardiac output, maintain mean arterial pressure equal or greater than 65 mmHg. -Vasopressin currently at 2, will titrate down and d/c -Hydrocortisone 50mg IV Q6 hours - transition to PO steroids in the next 24-48 hours -Fludrocortisone 0.05mg PO daily - taper steroids as tolerated - Withhold Coreg and Altace therapies pending hemodynamics stabilization - Withhold Lipitor therapy considering the above-noted abnormal liver function testing, pending resolution of above co-morbidities - Continue diuresis with Lasix> changed from BID to qDaily - Cardiology recommendations appreciated. Gastrointestinal -NPO while patient is intubated -Protonix 40mg IV BID prophylaxis Infectious disease Septic shock; uncertain source -Blood cultures growing Staph Hominis susceptible to Vanc -Follow urine cultures -Urine cultures negative for legionella, pneumonia -Lactic acid peaked at 3.7, now plateauing at 2.9, continue to trend down -ID consult (Dr. Mehta) - appreciate recs whether to continue Vanc + [place] given blood cultures, will continue Abx therapy pending reccs -Vancomycin 1 gram Q12 hours -Meropenem 1 gram IV Q8 hours - ESR wnL Renal -Continue diuresis with lasix 40 IV qDaily -F/u urine myoglobin - replace potassium - F/u urine osm and urine lytes -Dr. Lazo following, recommendations appreciated. Endo Blood glucose elevated today, patient is on steroids -will check sugars q6h -SSI FEN -IV normal saline bolus, caution not to overload -Follow CMP, replete lytes as needed -Continue tube feeds: Low calorie/ high protein goal 50cc/hr with 5cc/hr NS flush. Prophylaxis -Patient is on Lovenox 80mg subq BID -Protonix 40mg IV BID prophylaxis Disposition: We will continue to follow the patient. Thank you for this consultative opportunity. Visit type - Emergency Visit Emergency Visit: No - New Patient This patient is new to me today: Yes Date on this admission: 10/14/18 - Critical Care Critical Care patient: Yes Total Critical Care Time (in minutes): 30 Critical Care Statement: The care of this patient involved high complexity decision making to prevent further life threatening deterioration of the patient 's condition and/or to evaluate & treat vital organ system(s) failure or risk of failure. ATTENDING PHYSICIAN STATEMENT I saw and evaluated the patient. I reviewed the resident's note and discussed the case with the resident. I agree with the resident's findings and plan as documented. SUBJECTIVE: OBJECTIVE: ASSESSMENT AND PLAN:
[2018-10-14] MEDS: VANCOMYCIN 1 GRAM (PRE-DOCKED) 1,000 MG/250 ML BAG IVPB SCH ×2 (07:55→21:33)
[2018-10-14] MEDS: CHOLECALCIFEROL (VIT D3) 1,000 UNIT (25 MCG) TABLET PO SCH (09:18)
[2018-10-14] MEDS: ENOXAPARIN NA (PORCINE) 80 MG/0.8 ML DISP.SYRIN SQ SCH ×2 (09:18→21:33)
[2018-10-14] MEDS: PANTOPRAZOLE SODIUM 40 MG VIAL IVPUSH SCH (09:18)
[2018-10-14] MEDS: LACTOBACILLUS ACIDOPHILUS 1 TABLET PO SCH (09:22)
[2018-10-14] MEDS ORDERED: PT OWN MED DRAWER 7, Y5N ONE ×2 (09:25→14:33)
[2018-10-14] MEDS: FUROSEMIDE 40 MG/4 ML INJECTABLE VIAL IVPUSH SCH (09:26)
[2018-10-14] MEDS: FLUDROCORTISONE ACETATE 0.1 MG TABLET (FP) PO SCH (09:28)
[2018-10-14] MEDS: TOLTERODINE TARTRATE 2 MG TABLET PO SCH (09:28)
--- NOTE | 2018-10-14 11:38 | EKG ---
Test Reason : Blood Pressure : / mmHG Vent. Rate : 104 BPM Atrial Rate : 013 BPM P-R Int : 000 ms QRS Dur : 140 ms QT Int : 410 ms P-R-T Axes : 000 045 -74 degrees QTc Int : 539 ms POOR DATA QUALITY, INTERPRETATION MAY BE ADVERSELY AFFECTED Atrial-sensed ventricular-paced rhythm Confirmed by CLINTON ALLEN, DANDY ([id number]) on 10/14/2018 11:37:49 AM Referred By: Confirmed By:DANDY ALONZO MD
[2018-10-14 11:46] LABS: WHITE BLOOD COUNT 21.1 K/mm3 (4.0-10.0)
--- NOTE | 2018-10-14 11:52 | PN ---
Teaching Attending Note Name of Resident: Laura Quintanilla ATTENDING PHYSICIAN STATEMENT I saw and evaluated the patient. I reviewed the resident's note and discussed the case with the resident. I agree with the resident's findings and plan as documented. SUBJECTIVE: Pt seen and examined in the ICU. Remains intubated, arousable. Fever curve continues to trend down. CRP, ESR low. Remains on low dose levophed gtt. Increased ectopy with milrinone so was d/c'd. OBJECTIVE: Vital Signs Period Temp Pulse Resp BP Sys/Zayas Pulse Ox Last 24 Hr 98.2 F-100.3 F 65-116 12-24 72-121/58-104 99-99 Intake & Output 10/11/18 10/12/18 10/13/18 10/14/18 23:59 23:59 23:59 23:59 Intake Total 3201.6 1548.6 943.8 370 Output Total 2050 1250 1600 1500 Balance 1151.6 298.6 -656.2 -1130 Weight 83.461 kg 87.453 kg 85.502 kg 85.185 kg Gen: intubated, arousable Heart: RRR Lung: decreased breath sounds at the bases Abd: soft, nontender Ext: + edema CBC, BMP 10/14/18 05:30 10/14/18 05:30 Active Medications Cholecalciferol (Vitamin D3 -) 5,000 unit PO DAILY [facility] Last Admin: 10/14/18 09:18 Dose: 5,000 unit Enoxaparin Sodium (Lovenox -) 80 mg SQ BID [facility]ANG Last Admin: 10/14/18 09:18 Dose: 80 mg Fludrocortisone Acetate (Florinef -) 0.05 mg PO DAILY [facility] Last Admin: 10/14/18 09:28 Dose: 0.05 mg Furosemide (Lasix Injection -) 40 mg IVPUSH DAILY [facility] Last Admin: 10/14/18 09:26 Dose: 40 mg Hydrocortisone Sodium Succinate (Solu-Cortef -) 50 mg IVPB Q6H-IV [facility]ANG Last Admin: 10/14/18 08:25 Dose: 50 mg Propofol (Diprivan -) 1,000,000 mcg in 100 mls @ 2.49 mls/hr IVPB TITR [facility]; Protocol Last Admin: 10/13/18 21:12 Dose: Not Given Vancomycin HCl (Vancomycin (Pre-Docked)) 1,000 mg in 250 mls @ 166.667 mls/hr IVPB Q12H [facility]; Protocol Last Admin: 10/14/18 07:55 Dose: 166.667 mls/hr Meropenem 1 gm/ Sodium (Chloride) 100 mls @ 200 mls/hr IVPB Q8H-IV [facility]ANG Last Admin: 10/14/18 09:26 Dose: 200 mls/hr Norepinephrine Bitartrate 8, (000 mcg/ Dextrose) 500 mls @ 18.75 mls/hr IV TITR [facility]; Protocol Last Titration: 10/14/18 04:01 Dose: 5 mcg/min, 18.75 mls/hr Milrinone Lactate/Dextrose (Milrinone 20mg/100ml Ivpb -) 20,000 mcg in 100 mls @ 9.619 mls/hr IVPB TITR [facility]; Protocol Last Titration: 10/14/18 03:23 Dose: 0 mcg/kg/min, 0 mls/hr Insulin Aspart (Novolog Vial Sliding Scale -) 1 vial SQ Q6H [facility]; Protocol Last Admin: 10/14/18 11:26 Dose: 8 units Insulin Detemir (Levemir Vial) 5 units SQ HS [facility] Last Admin: 10/13/18 21:14 Dose: 5 units Lactobacillus Acidophilus (Bacid -) 1 tab PO DAILY [facility] Last Admin: 10/14/18 09:22 Dose: 1 tab Nystatin (Mycostatin Cream -) 1 applic TP BID [facility]ANG Pantoprazole Sodium (Protonix Iv) 40 mg IVPUSH DAILY [facility] Last Admin: 10/14/18 09:18 Dose: 40 mg Tolterodine Tartrate (Detrol -) 2 mg PO DAILY [facility] Last Admin: 10/14/18 09:28 Dose: 2 mg ASSESSMENT AND PLAN: Acute Hypoxic Respiratory Failure Shock of unclear source - Septic vs Cardiogenic h/o Bilateral Pulmonary Emboli Pulmonary Sarcoidosis Atrial Fibrillation s/p PPM Thrombocytopenia h/o Intracranial Hemorrhage - continue antibiotics - f/u cultures - IVF to keep CVP 8-12 - titrate pressors to maintain MAP >65 - continue empiric stress dose steroids - rate control - continue anticoagulation - replete lytes - enteral feeds - daily sedation vacations to assess mental status - spontaneous breathing trials as tolerated when mental status improved - DVT/GI prophylaxis - continue ICU monitoring critical care time spent in reviewing chart, evaluating patient and formulating plan 35 min
[2018-10-14] MEDS: NYSTATIN 100,000 UNIT/GM TOPICAL CREAM 15 GM TUBE TP SCH ×2 (12:00→21:39)
--- NOTE | 2018-10-14 13:13 | PN ---
Progress Note, Physician History of Present Illness: Sedated and intubated on Levophed gtt. - Current Medication List Current Medications: Active Medications Cholecalciferol (Vitamin D3 -) 5,000 unit PO DAILY [facility] Last Admin: 10/14/18 09:18 Dose: 5,000 unit Enoxaparin Sodium (Lovenox -) 80 mg SQ BID [facility] Last Admin: 10/14/18 09:18 Dose: 80 mg Fludrocortisone Acetate (Florinef -) 0.05 mg PO DAILY [facility] Last Admin: 10/14/18 09:28 Dose: 0.05 mg Furosemide (Lasix Injection -) 40 mg IVPUSH DAILY [facility] Last Admin: 10/14/18 09:26 Dose: 40 mg Hydrocortisone Sodium Succinate (Solu-Cortef -) 50 mg IVPB Q6H-IV [facility] Last Admin: 10/14/18 08:25 Dose: 50 mg Propofol (Diprivan -) 1,000,000 mcg in 100 mls @ 2.49 mls/hr IVPB TITR [facility]; Protocol Last Admin: 10/13/18 21:12 Dose: Not Given Vancomycin HCl (Vancomycin (Pre-Docked)) 1,000 mg in 250 mls @ 166.667 mls/hr IVPB Q12H [facility]; Protocol Last Admin: 10/14/18 07:55 Dose: 166.667 mls/hr Meropenem 1 gm/ Sodium (Chloride) 100 mls @ 200 mls/hr IVPB Q8H-IV [facility] Last Admin: 10/14/18 09:26 Dose: 200 mls/hr Norepinephrine Bitartrate 8, (000 mcg/ Dextrose) 500 mls @ 18.75 mls/hr IV TITR [facility]; Protocol Last Titration: 10/14/18 04:01 Dose: 5 mcg/min, 18.75 mls/hr Milrinone Lactate/Dextrose (Milrinone 20mg/100ml Ivpb -) 20,000 mcg in 100 mls @ 9.619 mls/hr IVPB TITR [facility]; Protocol Last Titration: 10/14/18 03:23 Dose: 0 mcg/kg/min, 0 mls/hr Insulin Aspart (Novolog Vial Sliding Scale -) 1 vial SQ Q6H [facility]; Protocol Last Admin: 10/14/18 11:26 Dose: 8 units Insulin Detemir (Levemir Vial) 5 units SQ HS [facility] Last Admin: 10/13/18 21:14 Dose: 5 units Lactobacillus Acidophilus (Bacid -) 1 tab PO DAILY [facility] Last Admin: 10/14/18 09:22 Dose: 1 tab Nystatin (Mycostatin Cream -) 1 applic TP BID [facility] Pantoprazole Sodium (Protonix Iv) 40 mg IVPUSH DAILY [facility] Last Admin: 10/14/18 09:18 Dose: 40 mg Tolterodine Tartrate (Detrol -) 2 mg PO DAILY [facility] Last Admin: 10/14/18 09:28 Dose: 2 mg - Objective Vital Signs: Vital Signs Temperature 99.9 F H 10/14/18 10:00 Pulse Rate 105 H 10/14/18 12:00 Respiratory Rate 12 10/14/18 12:00 Blood Pressure 95/70 10/14/18 12:00 O2 Sat by Pulse Oximetry (%) 99 10/13/18 23:39 Cardiovascular: Yes: Regular Rate and Rhythm Respiratory: Yes: Intubated, Mechanically Ventilated Gastrointestinal: Yes: Normal Bowel Sounds, Soft Edema: Yes Edema: LLE: Trace, RLE: Trace Labs: CBC, BMP 10/14/18 05:30 10/14/18 05:30 - ....Imaging Chest X-ray: Report Reviewed Assessment/Plan Echocardiography performed March 29, 2018 revealed moderately reduced left ventricular systolic function with LVEF between 35-40%, Bioprosthetic mitral valve with mild mitral valve regurgitation,mild tricuspid valve regurgitation Echocardiography performed October 11, 2018 revealed left ventricular cavity dilatation with severe reduction in left ventricular ejection fraction estimated LVEF between 20-25% Problem List - Problems (1) GERD (gastroesophageal reflux disease) Code(s): K21.9 - GASTRO-ESOPHAGEAL REFLUX DISEASE WITHOUT ESOPHAGITIS (3) HTN (hypertension) Code(s): I10 - ESSENTIAL (PRIMARY) HYPERTENSION (4) Pacemaker Code(s): Z95.0 - PRESENCE OF CARDIAC PACEMAKER (5) Respiratory failure with hypoxia Code(s): J96.91 - RESPIRATORY FAILURE, UNSPECIFIED WITH HYPOXIA (6) Shock Code(s): R57.9 - SHOCK, UNSPECIFIED (7) Acute on chronic diastolic (congestive) heart failure Code(s): I50.33 - ACUTE ON CHRONIC DIASTOLIC (CONGESTIVE) HEART FAILURE (8) Hyperlipidemia Code(s): E78.5 - HYPERLIPIDEMIA, UNSPECIFIED Qualifiers: Hyperlipidemia type: pure hypercholesterolemia Qualified Code(s): E78.00 - Pure hypercholesterolemia, unspecified; E78.0 - Pure hypercholesterolemia (9) Pulmonary embolism Code(s): I26.99 - OTHER PULMONARY EMBOLISM WITHOUT ACUTE COR PULMONALE (11) Sarcoidosis Code(s): D86.9 - SARCOIDOSIS, UNSPECIFIED (12) Status post tricuspid valve repair Code(s): Z98.890 - OTHER SPECIFIED POSTPROCEDURAL STATES 1. Acute Hypoxic Respiratory Failure on mechanical ventilation 2. Probable septic shock currently on pressors- source of sepsis to be determined 3. 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 Acute on chroic Systolic left ventricular failure related to non-ischemic dilated cardiomyopathy, Class I-II [place] [employer] classification left ventricular failure- LVEF between 35-40% on echocardiography performed March 29, 2018/LVEF between 20-25% on echocardiography performed yesterday October 11, 2018 5. Post ICD implantation for syncope and complete heart block 6. Post tricuspid valve annuloplasty, for management of severe tricuspid valve regurgitation 7. History of pulmonary sarcoidosis without myocardial sarcoidosis 8. History of recent pulmonary thromboembolism on anticoagulation therapy 10. Hyponatremia and Hypokalemia 11. Anemia and thrombocytopenia 12. h/o Cerebellar Hemorrhage 13. Post-op Afib PLAN: 1. Wean Levophed gtt to maintain mean arterial pressure equal or greater than 65 mmHg 2. Abx course per C&S, empiric stress dose steroids 3. If anemia and thrombocytopenia are persistent Lovenox therapy may need to be withheld 4. Withhold Coreg and Altace therapies pending hemodynamics stabilization 5. Undergoing inotropic diuresis with monitor diuretic response, renal fxn and electrolytes 6. Withhold Lipitor therapy considering the above-noted abnormal liver function testing, pending resolution of above co-morbidities 7. Enteral feeds, daily sedation vacations to assess mental status, spontaneous breathing trials as tolerated when mental status improved 8. DVT/GI prophylaxis
--- NOTE | 2018-10-14 13:42 | PN ---
Progress Note, Physician History of Present Illness: Pt seen and examined at bedside. She remains in the ICU. She remains intubated. - Current Medication List Current Medications: Active Medications Cholecalciferol (Vitamin D3 -) 5,000 unit PO DAILY [facility] Last Admin: 10/14/18 09:18 Dose: 5,000 unit Enoxaparin Sodium (Lovenox -) 80 mg SQ BID [facility] Last Admin: 10/14/18 09:18 Dose: 80 mg Fludrocortisone Acetate (Florinef -) 0.05 mg PO DAILY [facility] Last Admin: 10/14/18 09:28 Dose: 0.05 mg Furosemide (Lasix Injection -) 40 mg IVPUSH DAILY [facility] Last Admin: 10/14/18 09:26 Dose: 40 mg Hydrocortisone Sodium Succinate (Solu-Cortef -) 50 mg IVPB Q6H-IV [facility] Last Admin: 10/14/18 08:25 Dose: 50 mg Propofol (Diprivan -) 1,000,000 mcg in 100 mls @ 2.49 mls/hr IVPB TITR [facility]; Protocol Last Admin: 10/13/18 21:12 Dose: Not Given Vancomycin HCl (Vancomycin (Pre-Docked)) 1,000 mg in 250 mls @ 166.667 mls/hr IVPB Q12H [facility]; Protocol Last Admin: 10/14/18 07:55 Dose: 166.667 mls/hr Meropenem 1 gm/ Sodium (Chloride) 100 mls @ 200 mls/hr IVPB Q8H-IV [facility] Last Admin: 10/14/18 09:26 Dose: 200 mls/hr Norepinephrine Bitartrate 8, (000 mcg/ Dextrose) 500 mls @ 18.75 mls/hr IV TITR [facility]; Protocol Last Titration: 10/14/18 04:01 Dose: 5 mcg/min, 18.75 mls/hr Milrinone Lactate/Dextrose (Milrinone 20mg/100ml Ivpb -) 20,000 mcg in 100 mls @ 9.619 mls/hr IVPB TITR [facility]; Protocol Last Titration: 10/14/18 03:23 Dose: 0 mcg/kg/min, 0 mls/hr Insulin Aspart (Novolog Vial Sliding Scale -) 1 vial SQ Q6H [facility]; Protocol Last Admin: 10/14/18 11:26 Dose: 8 units Insulin Detemir (Levemir Vial) 5 units SQ HS [facility] Last Admin: 10/13/18 21:14 Dose: 5 units Lactobacillus Acidophilus (Bacid -) 1 tab PO DAILY [facility] Last Admin: 10/14/18 09:22 Dose: 1 tab Nystatin (Mycostatin Cream -) 1 applic TP BID [facility] Pantoprazole Sodium (Protonix Iv) 40 mg IVPUSH DAILY [facility] Last Admin: 10/14/18 09:18 Dose: 40 mg Tolterodine Tartrate (Detrol -) 2 mg PO DAILY [facility] Last Admin: 10/14/18 09:28 Dose: 2 mg - Objective Vital Signs: Vital Signs Temperature 99.9 F H 10/14/18 10:00 Pulse Rate 105 H 10/14/18 12:00 Respiratory Rate 12 10/14/18 12:00 Blood Pressure 95/70 10/14/18 12:00 O2 Sat by Pulse Oximetry (%) 99 10/13/18 23:39 Constitutional: Yes: Calm Eyes: Yes: Conjunctiva Clear HENT: Yes: Atraumatic Neck: Yes: Supple Cardiovascular: Yes: S1, S2 Respiratory: Yes: Intubated, Mechanically Ventilated Gastrointestinal: Yes: Soft, Abdomen, Obese Genitourinary: Yes: Barclay Present Edema: Yes Edema: LLE: 1+, RLE: 1+ Integumentary: Yes: WNL Neurological: Yes: Lethargy Labs: CBC, BMP 10/14/18 05:30 10/14/18 05:30 - ....Imaging Chest X-ray: Report Reviewed Problem List - Problems (1) DENISHA (acute kidney injury) Code(s): N17.9 - ACUTE KIDNEY FAILURE, UNSPECIFIED (2) Respiratory failure Code(s): J96.90 - RESPIRATORY FAILURE, UNSP, UNSP W HYPOXIA OR HYPERCAPNIA (3) CHF exacerbation Code(s): I50.9 - HEART FAILURE, UNSPECIFIED Qualifiers: Heart failure type: unspecified Qualified Code(s): I50.9 - Heart failure, unspecified Assessment/Plan Current Medications Generic Name Dose Route Start Last Admin Trade Name Freq PRN Reason Stop Dose Admin Cholecalciferol 5,000 unit 10/10/18 10:00 10/14/18 09:18 Vitamin D3 - PO 5,000 unit DAILY [facility] Administration Enoxaparin Sodium 80 mg 10/10/18 11:15 10/14/18 09:18 Lovenox - SQ 80 mg BID [facility] Administration Fludrocortisone Acetate 0.05 mg 10/10/18 11:00 10/14/18 09:28 Florinef - PO 0.05 mg DAILY [facility] Administration Furosemide 40 mg 10/14/18 10:00 10/14/18 09:26 Lasix Injection - IVPUSH 40 mg DAILY [facility] Administration Hydrocortisone Sodium Succinate 50 mg 10/10/18 11:00 10/14/18 08:25 Solu-Cortef - IVPB 50 mg Q6H-IV [facility] Administration Propofol 1,000,000 mcg in 100 mls @ 2.49 mls/hr 10/10/18 10:30 10/13/18 21:12 Diprivan - IVPB Not Given TITR [facility] Protocol 5 MCG/KG/MIN Vancomycin HCl 1,000 mg in 250 mls @ 166.667 mls/hr 10/11/18 20:00 10/14/18 07:55 Vancomycin (Pre-Docked) IVPB 166.667 mls/hr Q12H [facility] Administration Protocol Meropenem 1 gm/ Sodium 100 mls @ 200 mls/hr 10/13/18 14:25 10/14/18 09:26 Chloride IVPB 200 mls/hr Q8H-IV [facility] Administration Norepinephrine Bitartrate 8, 500 mls @ 18.75 mls/hr 10/13/18 14:32 10/14/18 04:01 000 mcg/ Dextrose IV 5 mcg/min TITR [facility]ANG 18.75 mls/hr Titration Protocol 5 MCG/MIN Milrinone Lactate/Dextrose 20,000 mcg in 100 mls @ 9.619 mls/hr 10/13/18 15: 15 10/14/18 03:23 Milrinone 20mg/100ml Ivpb - IVPB 0 mcg/kg/min TITR [facility] 0 mls/hr Titration Protocol 0.375 MCG/KG/MIN Insulin Aspart 1 vial 10/12/18 16:30 10/14/18 11:26 Novolog Vial Sliding Scale - SQ 8 units Q6H [facility] Administration Protocol Insulin Detemir 5 units 10/13/18 22:00 10/13/18 21:14 Levemir Vial SQ 5 units HS [facility] Administration Lactobacillus Acidophilus 1 tab 10/10/18 10:00 10/14/18 09:22 Bacid - PO 1 tab DAILY [facility] Administration Nystatin 1 applic 10/14/18 10:00 Mycostatin Cream - TP BID [facility] Pantoprazole Sodium 40 mg 10/11/18 12:15 10/14/18 09:18 Protonix Iv IVPUSH 40 mg DAILY [facility] Administration Tolterodine Tartrate 2 mg 10/10/18 10:00 10/14/18 09:28 Detrol - PO 2 mg DAILY [facility] Administration Impression 1. DENISHA 2. resp failure 3. chf 4. hx PE 5. hx htn 6. pulm sarcoid 7. shock 8. a-fib 9. hyponatremia Plan - pt seen and examined at bedside - sodium is improving - titrate pressors - vent support - monitor urine output and renal function - volume status is improved - discussed with ICU team
--- NOTE | 2018-10-14 15:52 | PN ---
Progress Note, Physician History of Present Illness: continues to be intubated still on pressors - Current Medication List Current Medications: Active Medications Cholecalciferol (Vitamin D3 -) 5,000 unit PO DAILY [facility] Last Admin: 10/14/18 09:18 Dose: 5,000 unit Enoxaparin Sodium (Lovenox -) 80 mg SQ BID [facility] Last Admin: 10/14/18 09:18 Dose: 80 mg Fludrocortisone Acetate (Florinef -) 0.05 mg PO DAILY [facility] Last Admin: 10/14/18 09:28 Dose: 0.05 mg Furosemide (Lasix Injection -) 40 mg IVPUSH DAILY [facility] Last Admin: 10/14/18 09:26 Dose: 40 mg Hydrocortisone Sodium Succinate (Solu-Cortef -) 50 mg IVPB Q6H-IV [facility] Last Admin: 10/14/18 14:10 Dose: 50 mg Propofol (Diprivan -) 1,000,000 mcg in 100 mls @ 2.49 mls/hr IVPB TITR [facility]; Protocol Last Admin: 10/13/18 21:12 Dose: Not Given Vancomycin HCl (Vancomycin (Pre-Docked)) 1,000 mg in 250 mls @ 166.667 mls/hr IVPB Q12H [facility]; Protocol Last Admin: 10/14/18 07:55 Dose: 166.667 mls/hr Meropenem 1 gm/ Sodium (Chloride) 100 mls @ 200 mls/hr IVPB Q8H-IV [facility] Last Admin: 10/14/18 09:26 Dose: 200 mls/hr Norepinephrine Bitartrate 8, (000 mcg/ Dextrose) 500 mls @ 18.75 mls/hr IV TITR [facility]; Protocol Last Titration: 10/14/18 04:01 Dose: 5 mcg/min, 18.75 mls/hr Milrinone Lactate/Dextrose (Milrinone 20mg/100ml Ivpb -) 20,000 mcg in 100 mls @ 9.619 mls/hr IVPB TITR [facility]; Protocol Last Titration: 10/14/18 03:23 Dose: 0 mcg/kg/min, 0 mls/hr Insulin Aspart (Novolog Vial Sliding Scale -) 1 vial SQ Q6H [facility]; Protocol Last Admin: 10/14/18 11:26 Dose: 8 units Insulin Detemir (Levemir Vial) 5 units SQ HS [facility] Last Admin: 10/13/18 21:14 Dose: 5 units Lactobacillus Acidophilus (Bacid -) 1 tab PO DAILY [facility] Last Admin: 10/14/18 09:22 Dose: 1 tab Nystatin (Mycostatin Cream -) 1 applic TP BID [facility] Pantoprazole Sodium (Protonix Iv) 40 mg IVPUSH DAILY [facility] Last Admin: 10/14/18 09:18 Dose: 40 mg Tolterodine Tartrate (Detrol -) 2 mg PO DAILY [facility] Last Admin: 10/14/18 09:28 Dose: 2 mg - Objective Vital Signs: Vital Signs Temperature 101 F H 10/14/18 14:00 Pulse Rate 122 H 10/14/18 14:00 Respiratory Rate 12 10/14/18 14:00 Blood Pressure 95/70 10/14/18 12:00 O2 Sat by Pulse Oximetry (%) 99 10/13/18 23:39 Constitutional: Yes: No Distress, Calm Cardiovascular: Yes: S1, S2 Respiratory: Yes: Intubated, Mechanically Ventilated Gastrointestinal: Yes: Normal Bowel Sounds, Soft Musculoskeletal: Yes: WNL Extremities: Yes: WNL Neurological: Yes: Alert Psychiatric: Yes: Alert Labs: CBC, BMP 10/14/18 05:30 10/14/18 05:30 Assessment/Plan Problem List - Problems (1) GERD (gastroesophageal reflux disease) Code(s): K21.9 - GASTRO-ESOPHAGEAL REFLUX DISEASE WITHOUT ESOPHAGITIS (3) HTN (hypertension) Code(s): I10 - ESSENTIAL (PRIMARY) HYPERTENSION (4) Pacemaker Code(s): Z95.0 - PRESENCE OF CARDIAC PACEMAKER (5) Respiratory failure with hypoxia Code(s): J96.91 - RESPIRATORY FAILURE, UNSPECIFIED WITH HYPOXIA (6) Shock Code(s): R57.9 - SHOCK, UNSPECIFIED (7) Acute on chronic diastolic (congestive) heart failure Code(s): I50.33 - ACUTE ON CHRONIC DIASTOLIC (CONGESTIVE) HEART FAILURE (8) Hyperlipidemia Code(s): E78.5 - HYPERLIPIDEMIA, UNSPECIFIED Qualifiers: Hyperlipidemia type: pure hypercholesterolemia Qualified Code(s): E78.00 - Pure hypercholesterolemia, unspecified; E78.0 - Pure hypercholesterolemia (9) Pulmonary embolism Code(s): I26.99 - OTHER PULMONARY EMBOLISM WITHOUT ACUTE COR PULMONALE (11) Sarcoidosis Code(s): D86.9 - SARCOIDOSIS, UNSPECIFIED (12) Status post tricuspid valve repair Code(s): Z98.890 - OTHER SPECIFIED POSTPROCEDURAL STATES Assessment/Plan 62 y.o. female with PMH of b/l PE diagnosed 09/10/18 on Eliquis, systolic CHF, s/ p PPM, tricuspid repair and bioprosthetic MV repair, Sarcoidosis, hemorrhagic CVA, COPD, HTN, HLD, GERD, s/p cholecystectomy and LT hip surgery initially presented for c/o progressive SOB over the past 2 wks with weakness. Has been reportedly noncompliant with taking Lasix but taking Eliquis. Was transferred to the ICU for respiratory failure requiring intubation, hypotension, hyperthermia. Shock - likely Septic shock in addition to Cardiogenic Acute hypoxemic respiratory failure s/p intubation Hyperthermia B/L PE - r/o new embolism Sarcoidosis Hx of hemorrhagic CVA s/p AICD s/p tricuspid valve repair, bioprosthetic MV replacement Hx of UTI recently on antibiotics patient still intubated clear cut source still not present lactic acid still high plan patients lactic acid high and wbc has been climbing patient clinically looks stable i think chavez cx the patient we will continue the abx look at cvp nutrition rest as per icu follow wbc closely cause of her wbc increasing no clear cut of source of infection please change the central line cc 40 min
[2018-10-14] MEDS: PROPOFOL 1,000,000 MCG/100 ML VIAL IVPB SCH (16:49)
[2018-10-14] MEDS: NOREPINEPHRINE BITARTRATE 8,000 MCG in DEXTROSE 5%-WATER - 492 ML IV SCH (21:30)
[2018-10-14] MEDS: MILRINONE 20MG/100ML IVPB - 20,000 MCG/100 ML ML IVPB SCH (21:31)
[2018-10-14] MEDS: INSULIN (LEVEMIR) 100 UNITS/ML UNITS SQ SCH (21:37)
[2018-10-14 21:43] LABS: URINE APPEARANCE CLOUDY; URINE BILIRUBIN NEGATIVE (NEGATIVE); URINE COLOR YELLOW; URINE GLUCOSE (UA) NEGATIVE (NEGATIVE); URINE KETONE TRACE (NEGATIVE); URINE LEUK ESTERASE NEGATIVE (NEGATIVE); URINE NITRITE NEGATIVE (NEGATIVE); URINE PROTEIN 1+ (NEGATIVE); URINE UROBILINOGEN 0.2 mg/dL (0.2-1.0)
--- NOTE | 2018-10-14 22:04 | PN ---
Progress Note, Physician Chief Complaint: intubated History of Present Illness: Patient is a 62 year old female with PMHx of NYHA III systolic CHF, sarcoidosis , HTN, diabetes, HLD presents to [facility] with 2 days of difficulty breathing with wheezing. Hospitalization complicated when patient was found to be in septic shock requiring pressors, intubation. She was also noted to be hyperthermic with rectal temp of 107F. She remains in the ICU for further management. - Current Medication List Current Medications: Active Medications Acetaminophen (Ofirmev Injection -) 1,000 mg IVPB Q6H PRN PRN Reason: FEVER Cholecalciferol (Vitamin D3 -) 5,000 unit PO DAILY [facility] Last Admin: 10/14/18 09:18 Dose: 5,000 unit Enoxaparin Sodium (Lovenox -) 80 mg SQ BID [facility] Last Admin: 10/14/18 21:33 Dose: 80 mg Fludrocortisone Acetate (Florinef -) 0.05 mg PO DAILY [facility] Last Admin: 10/14/18 09:28 Dose: 0.05 mg Furosemide (Lasix Injection -) 40 mg IVPUSH DAILY [facility] Last Admin: 10/14/18 09:26 Dose: 40 mg Hydrocortisone Sodium Succinate (Solu-Cortef -) 50 mg IVPB Q6H-IV [facility] Last Admin: 10/14/18 21:33 Dose: 50 mg Propofol (Diprivan -) 1,000,000 mcg in 100 mls @ 2.49 mls/hr IVPB TITR [facility]; Protocol Last Admin: 10/14/18 16:49 Dose: 10 mcg/kg/min, 4.98 mls/hr Vancomycin HCl (Vancomycin (Pre-Docked)) 1,000 mg in 250 mls @ 166.667 mls/hr IVPB Q12H [facility]; Protocol Last Admin: 10/14/18 21:33 Dose: 166.667 mls/hr Meropenem 1 gm/ Sodium (Chloride) 100 mls @ 200 mls/hr IVPB Q8H-IV [facility] Last Admin: 10/14/18 17:00 Dose: 200 mls/hr Norepinephrine Bitartrate 8, (000 mcg/ Dextrose) 500 mls @ 18.75 mls/hr IV TITR [facility]; Protocol Last Admin: 10/14/18 21:30 Dose: 2 mcg/min, 7.5 mls/hr Milrinone Lactate/Dextrose (Milrinone 20mg/100ml Ivpb -) 20,000 mcg in 100 mls @ 9.619 mls/hr IVPB TITR [facility]; Protocol Last Admin: 10/14/18 21:31 Dose: Not Given Insulin Aspart (Novolog Vial Sliding Scale -) 1 vial SQ Q6H [facility]; Protocol Last Admin: 10/14/18 21:38 Dose: 2 units Insulin Detemir (Levemir Vial) 5 units SQ HS [facility] Last Admin: 10/14/18 21:37 Dose: 5 units Lactobacillus Acidophilus (Bacid -) 1 tab PO DAILY [facility] Last Admin: 10/14/18 09:22 Dose: 1 tab Nystatin (Mycostatin Cream -) 1 applic TP BID [facility] Last Admin: 10/14/18 21:39 Dose: 1 applic Pantoprazole Sodium (Protonix Iv) 40 mg IVPUSH DAILY [facility] Last Admin: 10/14/18 09:18 Dose: 40 mg Tolterodine Tartrate (Detrol -) 2 mg PO DAILY [facility] Last Admin: 10/14/18 09:28 Dose: 2 mg - Objective Vital Signs: Vital Signs Temperature 100.0 F H 10/14/18 19:18 Pulse Rate 115 H 10/14/18 18:00 Respiratory Rate 16 10/14/18 20:58 Blood Pressure 116/77 10/14/18 18:00 O2 Sat by Pulse Oximetry (%) 99 10/14/18 20:54 Constitutional: Yes: No Distress Eyes: Yes: WNL HENT: Yes: Atraumatic Neck: Yes: Supple Cardiovascular: Yes: Tachycardia Respiratory: Yes: Intubated Gastrointestinal: Yes: Abdomen, Obese Labs: CBC, BMP 10/14/18 05:30 10/14/18 05:30 Problem List - Problems (1) Septic shock Assessment/Plan: Shock - likely septic shock in addition to cardiogenic Sedated and intubated on Levophed and milrinone gtt. lactic acid remains elevated on meropenem ID following febrile today, recultured Code(s): A41.9 - SEPSIS, UNSPECIFIED ORGANISM; R65.21 - SEVERE SEPSIS WITH SEPTIC SHOCK (2) Respiratory failure with hypoxia Assessment/Plan: remains intubated, sedated care per icu Code(s): J96.91 - RESPIRATORY FAILURE, UNSPECIFIED WITH HYPOXIA (3) DENISHA (acute kidney injury) Assessment/Plan: monitor labs daily renal following Code(s): N17.9 - ACUTE KIDNEY FAILURE, UNSPECIFIED (4) GERD (gastroesophageal reflux disease) Assessment/Plan: protonix iv push Code(s): K21.9 - GASTRO-ESOPHAGEAL REFLUX DISEASE WITHOUT ESOPHAGITIS (5) HTN (hypertension) Assessment/Plan: monitor bp. cardiology following cardiac meds on hold Code(s): I10 - ESSENTIAL (PRIMARY) HYPERTENSION (6) Pacemaker Code(s): Z95.0 - PRESENCE OF CARDIAC PACEMAKER (7) Troponin I above reference range Assessment/Plan: -Cardiology consultation appreciated. -Patient anticoagulated with Lovenox 80mg subq BID -pressors to maintain map >60 Code(s): R74.8 - ABNORMAL LEVELS OF OTHER SERUM ENZYMES (8) Acute on chronic diastolic (congestive) heart failure Assessment/Plan: cardiology following Code(s): I50.33 - ACUTE ON CHRONIC DIASTOLIC (CONGESTIVE) HEART FAILURE (9) Hyperlipidemia Assessment/Plan: start statins when more stable. Code(s): E78.5 - HYPERLIPIDEMIA, UNSPECIFIED Qualifiers: Hyperlipidemia type: pure hypercholesterolemia Qualified Code(s): E78.00 - Pure hypercholesterolemia, unspecified; E78.0 - Pure hypercholesterolemia (10) Hypertensive cardiomyopathy Code(s): I11.9 - HYPERTENSIVE HEART DISEASE WITHOUT HEART FAILURE; I42.9 - CARDIOMYOPATHY, UNSPECIFIED Qualifiers: Heart failure presence: with heart failure Qualified Code(s): I11.0 - Hypertensive heart disease with heart failure; I43 - Cardiomyopathy in diseases classified elsewhere (11) Mitral valvular prolapse Code(s): I34.1 - NONRHEUMATIC MITRAL (VALVE) PROLAPSE (12) Diabetes Assessment/Plan: on novolog ss, levemir 5 Code(s): E11.9 - TYPE 2 DIABETES MELLITUS WITHOUT COMPLICATIONS (13) Prophylactic measure Assessment/Plan: fen on pressors started on jevity feeds via ngt on lovenox bid Code(s): Z29.9 - ENCOUNTER FOR PROPHYLACTIC MEASURES, UNSPECIFIED Visit type - Emergency Visit Emergency Visit: Yes ED Registration Date: 10/09/18 Care time: The patient presented to the Emergency Department on the above date and was hospitalized for further evaluation of their emergent condition. - New Patient This patient is new to me today: No - Critical Care Critical Care patient: Yes Total Critical Care Time (in minutes): 50 Critical Care Statement: The care of this patient involved high complexity decision making to prevent further life threatening deterioration of the patient 's condition and/or to evaluate & treat vital organ system(s) failure or risk of failure.
[2018-10-15 01:27] LABS: EPI CELLS 10.5 /HPF (0-5/HPF); HYALINE CASTS 27.49 /lpf (0-8); URINE BACTERIA 23.2 /hpf (NEGATIVE); URINE RBC 25.5 /hpf (0-4); URINE WBC 2.8 /hpf (0-5)
[2018-10-15] MEDS ORDERED: SODIUM CHLORIDE 100 ML IVPB ONE ×3 (02:42→18:02)
[2018-10-15] MEDS ORDERED: MEROPENEM 1 GM VIAL (RESTRICTED TO ID) IVPB ONE ×3 (02:42→18:01)
[2018-10-15] MEDS: HYDROCORTISONE SOD SUCCINATE 100 MG/2 ML VIAL IVPB SCH ×4 (02:44→22:11)
[2018-10-15] MEDS: MEROPENEM 1 GM in SODIUM CHLORIDE 100 ML IVPB SCH ×3 (02:45→18:13)
[2018-10-15] MEDS: INSULIN SLIDING SCALE (NOVOLOG) 1 VIAL SQ SCH ×4 (05:55→22:06)
[2018-10-15 06:35] LABS: BASO % 0.1 % (0-2.0); HEMATOCRIT 29.6 % (32.4-45.2); HEMOGLOBIN 9.5 GM/dL (10.7-15.3); LYMPH % 1.3 % (8-40); MCH 26.9 pg (25.7-33.7); MCHC 32.1 g/dl (32.0-36.0); MEAN CELL VOLUME 83.8 fl (80-96); MEAN PLT VOLUME 10.8 fl (7.5-11.1); MONO % 7.8 % (3.8-10.2); NEUT % 90.8 % (42.8-82.8); PLATELET COUNT 102 K/MM3 (134-434); RBC 3.53 M/mm3 (3.60-5.2); RDW 18.7 % (11.6-15.6); WHITE BLOOD COUNT 19.1 K/mm3 (4.0-10.0)
[2018-10-15 07:49] LABS: ALBUMIN 2.9 g/dl (3.4-5.0); BILIRUBIN,TOTAL 0.7 mg/dL (0.2-1); BLOOD UREA NITROGEN 28.1 mg/dL (7-18); CALCIUM 8.8 mg/dL (8.5-10.1); CREATININE 0.8 mg/dL (0.55-1.3); POTASSIUM 3.4 mmol/L (3.5-5.1); TOT PROT 5.4 g/dl (6.4-8.2)
--- NOTE | 2018-10-15 09:35 | PN ---
Progress Note, Physician History of Present Illness: Sedated and intubated on Levophed gtt. - Current Medication List Current Medications: Active Medications Acetaminophen (Ofirmev Injection -) 1,000 mg IVPB Q6H PRN PRN Reason: FEVER Cholecalciferol (Vitamin D3 -) 5,000 unit PO DAILY [facility] Last Admin: 10/14/18 09:18 Dose: 5,000 unit Enoxaparin Sodium (Lovenox -) 80 mg SQ BID [facility] Last Admin: 10/14/18 21:33 Dose: 80 mg Fludrocortisone Acetate (Florinef -) 0.05 mg PO DAILY [facility] Last Admin: 10/14/18 09:28 Dose: 0.05 mg Furosemide (Lasix Injection -) 40 mg IVPUSH DAILY [facility] Last Admin: 10/14/18 09:26 Dose: 40 mg Hydrocortisone Sodium Succinate (Solu-Cortef -) 50 mg IVPB Q6H-IV [facility] Last Admin: 10/15/18 02:44 Dose: 50 mg Propofol (Diprivan -) 1,000,000 mcg in 100 mls @ 2.49 mls/hr IVPB TITR [facility]; Protocol Last Titration: 10/15/18 06:10 Dose: 10 mcg/kg/min, 4.98 mls/hr Vancomycin HCl (Vancomycin (Pre-Docked)) 1,000 mg in 250 mls @ 166.667 mls/hr IVPB Q12H [facility]; Protocol Last Admin: 10/14/18 21:33 Dose: 166.667 mls/hr Meropenem 1 gm/ Sodium (Chloride) 100 mls @ 200 mls/hr IVPB Q8H-IV [facility] Last Admin: 10/15/18 02:45 Dose: 200 mls/hr Norepinephrine Bitartrate 8, (000 mcg/ Dextrose) 500 mls @ 18.75 mls/hr IV TITR [facility]; Protocol Last Titration: 10/15/18 06:10 Dose: 1 mcg/min, 3.75 mls/hr Milrinone Lactate/Dextrose (Milrinone 20mg/100ml Ivpb -) 20,000 mcg in 100 mls @ 9.619 mls/hr IVPB TITR [facility]; Protocol Last Admin: 10/14/18 21:31 Dose: Not Given Potassium Chloride (Potassium Chloride 10 Meq Premix Ivpb -) 10 meq in 100 mls @ 100 mls/hr IVPB Q60M [facility] Stop: 10/15/18 10:14 Insulin Aspart (Novolog Vial Sliding Scale -) 1 vial SQ Q6H [facility]; Protocol Last Admin: 10/15/18 05:55 Dose: 6 units Insulin Detemir (Levemir Vial) 5 units SQ HS [facility] Last Admin: 10/14/18 21:37 Dose: 5 units Lactobacillus Acidophilus (Bacid -) 1 tab PO DAILY [facility] Last Admin: 10/14/18 09:22 Dose: 1 tab Nystatin (Mycostatin Cream -) 1 applic TP BID [facility] Last Admin: 10/14/18 21:39 Dose: 1 applic Pantoprazole Sodium (Protonix Iv) 40 mg IVPUSH DAILY [facility] Last Admin: 10/14/18 09:18 Dose: 40 mg Tolterodine Tartrate (Detrol -) 2 mg PO DAILY [facility] Last Admin: 10/14/18 09:28 Dose: 2 mg - Objective Vital Signs: Vital Signs Temperature 99.2 F 10/15/18 06:00 Pulse Rate 97 H 10/15/18 08:44 Respiratory Rate 20 10/15/18 08:44 Blood Pressure 95/58 L 10/15/18 06:00 O2 Sat by Pulse Oximetry (%) 100 10/15/18 08:44 Constitutional: Yes: No Distress, Calm Neck: Yes: Supple Cardiovascular: Yes: Tachycardia Respiratory: Yes: Intubated, Mechanically Ventilated, Rhonchi Gastrointestinal: Yes: Soft, Hypoactive Bowel Sounds Edema: Yes Edema: LLE: Trace, RLE: Trace Labs: CBC, BMP 10/15/18 05:35 10/15/18 05:35 - ....Imaging Chest X-ray: Report Reviewed (Left ATX) EKG: Report Reviewed (Tele:v-paced) Assessment/Plan Echocardiography performed March 29, 2018 revealed moderately reduced left ventricular systolic function with LVEF between 35-40%, Bioprosthetic mitral valve with mild mitral valve regurgitation,mild tricuspid valve regurgitation Echocardiography performed October 11, 2018 revealed left ventricular cavity dilatation with severe reduction in left ventricular ejection fraction estimated LVEF between 20-25% Problem List - Problems (1) GERD (gastroesophageal reflux disease) Code(s): K21.9 - GASTRO-ESOPHAGEAL REFLUX DISEASE WITHOUT ESOPHAGITIS (3) HTN (hypertension) Code(s): I10 - ESSENTIAL (PRIMARY) HYPERTENSION (4) Pacemaker Code(s): Z95.0 - PRESENCE OF CARDIAC PACEMAKER (5) Respiratory failure with hypoxia Code(s): J96.91 - RESPIRATORY FAILURE, UNSPECIFIED WITH HYPOXIA (6) Shock Code(s): R57.9 - SHOCK, UNSPECIFIED (7) Acute on chronic diastolic (congestive) heart failure Code(s): I50.33 - ACUTE ON CHRONIC DIASTOLIC (CONGESTIVE) HEART FAILURE (8) Hyperlipidemia Code(s): E78.5 - HYPERLIPIDEMIA, UNSPECIFIED Qualifiers: Hyperlipidemia type: pure hypercholesterolemia Qualified Code(s): E78.00 - Pure hypercholesterolemia, unspecified; E78.0 - Pure hypercholesterolemia (9) Pulmonary embolism Code(s): I26.99 - OTHER PULMONARY EMBOLISM WITHOUT ACUTE COR PULMONALE (11) Sarcoidosis Code(s): D86.9 - SARCOIDOSIS, UNSPECIFIED (12) Status post tricuspid valve repair Code(s): Z98.890 - OTHER SPECIFIED POSTPROCEDURAL STATES 1. Acute Hypoxic Respiratory Failure on mechanical ventilation 2. Probable septic shock currently on pressors- source of sepsis to be determined 3. 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 Acute on chronic Systolic left ventricular failure related to non-ischemic dilated cardiomyopathy, Class I-II [place] [employer] classification left ventricular failure- LVEF between 35-40% on echocardiography performed March 29, 2018/LVEF between 20-25% on echocardiography performed yesterday October 11, 2018 5. Post ICD implantation for syncope and complete heart block 6. Post tricuspid valve annuloplasty, for management of severe tricuspid valve regurgitation 7. History of pulmonary sarcoidosis without myocardial sarcoidosis 8. History of recent pulmonary thromboembolism on anticoagulation therapy 10. Hyponatremia and Hypokalemia 11. Anemia and thrombocytopenia 12. h/o Cerebellar Hemorrhage 13. Post-op Afib PLAN: 1. Wean Levophed gtt to maintain mean arterial pressure equal or greater than 65 mmHg 2. Abx course per C&S, empiric stress dose steroids, line change 3. Continue Lovenox 80 bid with monitor Hgb and Plt 4. Withhold Coreg and Altace therapies pending hemodynamics stabilization 5. IV diuresis with monitor diuretic response, renal fxn and electrolytes, replete K 6. Withhold Lipitor therapy considering the above-noted abnormal liver function testing, pending resolution of above co-morbidities 7. Enteral feeds, daily sedation vacations to assess mental status, spontaneous breathing trials as tolerated when mental status improved 8. DVT/GI prophylaxis
--- NOTE | 2018-10-15 09:37 | PN ---
Progress Note, Physician History of Present Illness: patient continues to be intubated redness noted around the central line - Current Medication List Current Medications: Active Medications Acetaminophen (Ofirmev Injection -) 1,000 mg IVPB Q6H PRN PRN Reason: FEVER Cholecalciferol (Vitamin D3 -) 5,000 unit PO DAILY [facility] Last Admin: 10/14/18 09:18 Dose: 5,000 unit Enoxaparin Sodium (Lovenox -) 80 mg SQ BID [facility] Last Admin: 10/14/18 21:33 Dose: 80 mg Fludrocortisone Acetate (Florinef -) 0.05 mg PO DAILY [facility] Last Admin: 10/14/18 09:28 Dose: 0.05 mg Furosemide (Lasix Injection -) 40 mg IVPUSH DAILY [facility] Last Admin: 10/14/18 09:26 Dose: 40 mg Hydrocortisone Sodium Succinate (Solu-Cortef -) 50 mg IVPB Q6H-IV [facility] Last Admin: 10/15/18 02:44 Dose: 50 mg Propofol (Diprivan -) 1,000,000 mcg in 100 mls @ 2.49 mls/hr IVPB TITR [facility]; Protocol Last Titration: 10/15/18 06:10 Dose: 10 mcg/kg/min, 4.98 mls/hr Vancomycin HCl (Vancomycin (Pre-Docked)) 1,000 mg in 250 mls @ 166.667 mls/hr IVPB Q12H [facility]; Protocol Last Admin: 10/14/18 21:33 Dose: 166.667 mls/hr Meropenem 1 gm/ Sodium (Chloride) 100 mls @ 200 mls/hr IVPB Q8H-IV [facility] Last Admin: 10/15/18 02:45 Dose: 200 mls/hr Norepinephrine Bitartrate 8, (000 mcg/ Dextrose) 500 mls @ 18.75 mls/hr IV TITR [facility]; Protocol Last Titration: 10/15/18 06:10 Dose: 1 mcg/min, 3.75 mls/hr Milrinone Lactate/Dextrose (Milrinone 20mg/100ml Ivpb -) 20,000 mcg in 100 mls @ 9.619 mls/hr IVPB TITR [facility]; Protocol Last Admin: 10/14/18 21:31 Dose: Not Given Potassium Chloride (Potassium Chloride 10 Meq Premix Ivpb -) 10 meq in 100 mls @ 100 mls/hr IVPB Q60M [facility] Stop: 10/15/18 10:14 Insulin Aspart (Novolog Vial Sliding Scale -) 1 vial SQ Q6H [facility]; Protocol Last Admin: 10/15/18 05:55 Dose: 6 units Insulin Detemir (Levemir Vial) 5 units SQ HS [facility] Last Admin: 10/14/18 21:37 Dose: 5 units Lactobacillus Acidophilus (Bacid -) 1 tab PO DAILY [facility] Last Admin: 10/14/18 09:22 Dose: 1 tab Nystatin (Mycostatin Cream -) 1 applic TP BID [facility] Last Admin: 10/14/18 21:39 Dose: 1 applic Pantoprazole Sodium (Protonix Iv) 40 mg IVPUSH DAILY [facility] Last Admin: 10/14/18 09:18 Dose: 40 mg Tolterodine Tartrate (Detrol -) 2 mg PO DAILY [facility] Last Admin: 10/14/18 09:28 Dose: 2 mg - Objective Vital Signs: Vital Signs Temperature 99.2 F 10/15/18 06:00 Pulse Rate 97 H 10/15/18 08:44 Respiratory Rate 20 10/15/18 08:44 Blood Pressure 95/58 L 10/15/18 06:00 O2 Sat by Pulse Oximetry (%) 100 10/15/18 08:44 Constitutional: Yes: No Distress, Calm Cardiovascular: Yes: Regular Rate and Rhythm Respiratory: Yes: Intubated, Mechanically Ventilated Gastrointestinal: Yes: Normal Bowel Sounds, Soft, Other Musculoskeletal: Yes: WNL Extremities: Yes: WNL Neurological: Yes: Other Labs: CBC, BMP 10/15/18 05:35 10/15/18 05:35 Assessment/Plan Problem List - Problems (1) GERD (gastroesophageal reflux disease) Code(s): K21.9 - GASTRO-ESOPHAGEAL REFLUX DISEASE WITHOUT ESOPHAGITIS (3) HTN (hypertension) Code(s): I10 - ESSENTIAL (PRIMARY) HYPERTENSION (4) Pacemaker Code(s): Z95.0 - PRESENCE OF CARDIAC PACEMAKER (5) Respiratory failure with hypoxia Code(s): J96.91 - RESPIRATORY FAILURE, UNSPECIFIED WITH HYPOXIA (6) Shock Code(s): R57.9 - SHOCK, UNSPECIFIED (7) Acute on chronic diastolic (congestive) heart failure Code(s): I50.33 - ACUTE ON CHRONIC DIASTOLIC (CONGESTIVE) HEART FAILURE (8) Hyperlipidemia Code(s): E78.5 - HYPERLIPIDEMIA, UNSPECIFIED Qualifiers: Hyperlipidemia type: pure hypercholesterolemia Qualified Code(s): E78.00 - Pure hypercholesterolemia, unspecified; E78.0 - Pure hypercholesterolemia (9) Pulmonary embolism Code(s): I26.99 - OTHER PULMONARY EMBOLISM WITHOUT ACUTE COR PULMONALE (11) Sarcoidosis Code(s): D86.9 - SARCOIDOSIS, UNSPECIFIED (12) Status post tricuspid valve repair Code(s): Z98.890 - OTHER SPECIFIED POSTPROCEDURAL STATES Assessment/Plan 62 y.o. female with PMH of b/l PE diagnosed 09/10/18 on Eliquis, systolic CHF, s/ p PPM, tricuspid repair and bioprosthetic MV repair, Sarcoidosis, hemorrhagic CVA, COPD, HTN, HLD, GERD, s/p cholecystectomy and LT hip surgery initially presented for c/o progressive SOB over the past 2 wks with weakness. Has been reportedly noncompliant with taking Lasix but taking Eliquis. Was transferred to the ICU for respiratory failure requiring intubation, hypotension, hyperthermia. Shock - likely Septic shock in addition to Cardiogenic Acute hypoxemic respiratory failure s/p intubation Hyperthermia B/L PE - r/o new embolism Sarcoidosis Hx of hemorrhagic CVA s/p AICD s/p tricuspid valve repair, bioprosthetic MV replacement Hx of UTI recently on antibiotics patient still intubated clear cut source still not present lactic acid still high plan continue current mgmt lactic acid trend wbc still high marginally low consider changing central line rest as per the team and icu cc 40 min
[2018-10-15] MEDS: KCL 10 MEQ IVPB 10 MEQ/100 ML INFUS.BAG IVPB SCH ×2 (09:44→10:05)
[2018-10-15] MEDS: VANCOMYCIN 1 GRAM (PRE-DOCKED) 1,000 MG/250 ML BAG IVPB SCH ×2 (09:44→22:11)
[2018-10-15 09:45] LABS: ANISOCYTOSIS 2+; MACROCYTOSIS 1+; OVALOCYTE 1+; PLATELET ESTIMATE DECREASED; TEAR DROP CELLS 1+
[2018-10-15] MEDS: FUROSEMIDE 40 MG/4 ML INJECTABLE VIAL IVPUSH SCH (09:45)
[2018-10-15] MEDS: PANTOPRAZOLE SODIUM 40 MG VIAL IVPUSH SCH (09:45)
[2018-10-15] MEDS: ENOXAPARIN NA (PORCINE) 80 MG/0.8 ML DISP.SYRIN SQ SCH ×2 (09:45→22:10)
[2018-10-15] MEDS: CHOLECALCIFEROL (VIT D3) 1,000 UNIT (25 MCG) TABLET PO SCH (09:46)
[2018-10-15] MEDS: LACTOBACILLUS ACIDOPHILUS 1 TABLET PO SCH (09:47)
[2018-10-15] MEDS ORDERED: PT OWN MED DRAWER 7, Y5N ONE (09:59)
[2018-10-15] MEDS: FLUDROCORTISONE ACETATE 0.1 MG TABLET (FP) PO SCH (10:03)
[2018-10-15] MEDS: TOLTERODINE TARTRATE 2 MG TABLET PO SCH (10:04)
[2018-10-15] MEDS: NYSTATIN 100,000 UNIT/GM TOPICAL CREAM 15 GM TUBE TP SCH ×2 (10:05→22:08)
--- NOTE | 2018-10-15 11:53 | PN ---
Teaching Attending Note Name of Resident: Nubia Landon ATTENDING PHYSICIAN STATEMENT I saw and evaluated the patient. I reviewed the resident's note and discussed the case with the resident. I agree with the resident's findings and plan as documented. SUBJECTIVE: Pt seen and examined in the ICU. Remains intubated, sedated. Pressors off this AM. Febrile yesterday. OBJECTIVE: Vital Signs Period Temp Pulse Resp BP Sys/Zayas Pulse Ox Last 24 Hr 98.7 F-110.1 F 97-122 12-23 95-121/58-98 99-100 Intake & Output 10/12/18 10/13/18 10/14/18 10/15/18 23:59 23:59 23:59 23:59 Intake Total 1548.6 943.8 1632 0 Output Total 1250 1600 3700 200 Balance 298.6 -656.2 -2068 -200 Weight 87.453 kg 85.502 kg 85.185 kg 83.121 kg Gen: intubated, sedated Heart: RRR Lung: scattered rhonchi Abd: soft, nontender Ext: + edema CBC, BMP 10/15/18 05:35 10/15/18 05:35 Active Medications Acetaminophen (Ofirmev Injection -) 1,000 mg IVPB Q6H PRN PRN Reason: FEVER Cholecalciferol (Vitamin D3 -) 5,000 unit PO DAILY [facility] Last Admin: 10/15/18 09:46 Dose: 5,000 unit Enoxaparin Sodium (Lovenox -) 80 mg SQ BID [facility] Last Admin: 10/15/18 09:45 Dose: 80 mg Fludrocortisone Acetate (Florinef -) 0.05 mg PO DAILY [facility] Last Admin: 10/15/18 10:03 Dose: 0.05 mg Furosemide (Lasix Injection -) 40 mg IVPUSH DAILY [facility] Last Admin: 10/15/18 09:45 Dose: 40 mg Hydrocortisone Sodium Succinate (Solu-Cortef -) 50 mg IVPB Q6H-IV [facility] Last Admin: 10/15/18 09:46 Dose: 50 mg Propofol (Diprivan -) 1,000,000 mcg in 100 mls @ 2.49 mls/hr IVPB TITR [facility]; Protocol Last Titration: 10/15/18 06:10 Dose: 10 mcg/kg/min, 4.98 mls/hr Vancomycin HCl (Vancomycin (Pre-Docked)) 1,000 mg in 250 mls @ 166.667 mls/hr IVPB Q12H [facility]; Protocol Last Admin: 10/15/18 09:44 Dose: 166.667 mls/hr Meropenem 1 gm/ Sodium (Chloride) 100 mls @ 200 mls/hr IVPB Q8H-IV [facility] Last Admin: 10/15/18 09:45 Dose: 200 mls/hr Norepinephrine Bitartrate 8, (000 mcg/ Dextrose) 500 mls @ 18.75 mls/hr IV TITR [facility]; Protocol Last Titration: 10/15/18 06:10 Dose: 1 mcg/min, 3.75 mls/hr Insulin Aspart (Novolog Vial Sliding Scale -) 1 vial SQ Q6H [facility]; Protocol Last Admin: 10/15/18 05:55 Dose: 6 units Insulin Detemir (Levemir Vial) 5 units SQ HS [facility] Last Admin: 10/14/18 21:37 Dose: 5 units Lactobacillus Acidophilus (Bacid -) 1 tab PO DAILY [facility] Last Admin: 10/15/18 09:47 Dose: 1 tab Nystatin (Mycostatin Cream -) 1 applic TP BID [facility] Last Admin: 10/15/18 10:05 Dose: 1 applic Pantoprazole Sodium (Protonix Iv) 40 mg IVPUSH DAILY [facility] Last Admin: 10/15/18 09:45 Dose: 40 mg Tolterodine Tartrate (Detrol -) 2 mg PO DAILY [facility] Last Admin: 10/15/18 10:04 Dose: 2 mg ASSESSMENT AND PLAN: Acute Hypoxic Respiratory Failure Shock of unclear source - Septic vs Cardiogenic h/o Bilateral Pulmonary Emboli Pulmonary Sarcoidosis Atrial Fibrillation s/p PPM Thrombocytopenia h/o Intracranial Hemorrhage - continue antibiotics - reculture if febrile - IVF to keep CVP 8-12 - off pressors, maintain MAP >65 - continue empiric stress dose steroids - rate control - continue anticoagulation - replete lytes - enteral feeds - daily sedation vacations to assess mental status - spontaneous breathing trials as tolerated when mental status improved - DVT/GI prophylaxis - continue ICU monitoring critical care time spent in reviewing chart, evaluating patient and formulating plan 35 min
--- NOTE | 2018-10-15 13:17 | PN ---
Physical Exam: SUBJECTIVE: Patient seen and examined at the bedside. No acute events overnight , patient is still intubated and sedated. Central line needs to be changed today. On Levophed of 1. OBJECTIVE: Vital Signs Period Temp Pulse Resp BP Sys/Zayas Pulse Ox Last 24 Hr 98.7 F-110.1 F 97-122 12-23 95-121/58-98 99-100 GENERAL: The patient is intubated and sedated HEAD: Normal with no signs of trauma. EYES: PERRL, sclera anicteric, conjunctiva clear. ENT: Ears normal, nares patent, dry mucous membranes. NECK: Trachea midline, full range of motion, supple. LUNGS: Breath sounds equal and mechanical, scattered ronchi bilaterally, no wheezes, no crackles, no accessory muscle use. HEART: Regular rate and rhythm, S1, S2 without murmur, rub or gallop. ABDOMEN: Soft, nontender, obese, normoactive bowel sounds, no guarding, no rebound. EXTREMITIES: 2+ pulses, warm, trace pedal edema. SKIN: Warm, dry, linear macular rash in abdominal folds, no ulcers noted on patient's back when turned, some redness noted around RIJ. Laboratory Results - last 24 hr 10/12/18 10/14/18 10/14/18 07:30 16:45 19:35 WBC RBC Hgb Hct MCV MCH MCHC RDW Plt Count MPV Absolute Neuts (auto) Neutrophils % Neutrophils % (Manual) Band Neutrophils % Lymphocytes % Lymphocytes % (Manual) Monocytes % Monocytes % (Manual) Eosinophils % Eosinophils % (Manual) Basophils % Basophils % (Manual) Myelocytes % (Man) Promyelocytes % (Man) Blast Cells % (Manual) Nucleated RBC % Metamyelocytes Hypochromia Platelet Estimate Platelet Comment Polychromasia Poikilocytosis Basophilic Stippling Anisocytosis Microcytosis Macrocytosis Spherocytes Tear Drop Cells Ovalocytes Stomatocytes PTT (Actin FS) Sodium Potassium Chloride Carbon Dioxide Anion Gap BUN Creatinine Est GFR (CKD-EPI)AfAm Est GFR (CKD-EPI)NonAf POC Glucometer 260 Random Glucose Lactic Acid Calcium Total Bilirubin AST ALT Alkaline Phosphatase Total Protein Albumin Urine Color Yellow Urine Appearance Cloudy Urine pH 6.0 Ur Specific [place] 1.018 Urine Protein 1+ H Urine Glucose (UA) Negative Urine Ketones Trace H Urine Blood 3+ H Urine Nitrite Negative Urine Bilirubin Negative Urine Urobilinogen 0.2 Ur Leukocyte Esterase Negative Urine WBC (Auto) 2.8 Urine RBC (Auto) 25.5 Urine Casts (Auto) 27.49 U Pathogenic Cast Auto none seen U Epithel Cells (Auto) 10.5 U Sm Round Cell (Auto) none seen Urine Bacteria (Auto) 23.2 Urine Myoglobin 4 Urine Osmolality 10/14/18 10/14/18 10/15/18 19:35 21:30 05:35 WBC RBC Hgb Hct MCV MCH MCHC RDW Plt Count MPV Absolute Neuts (auto) Neutrophils % Neutrophils % (Manual) Band Neutrophils % Lymphocytes % Lymphocytes % (Manual) Monocytes % Monocytes % (Manual) Eosinophils % Eosinophils % (Manual) Basophils % Basophils % (Manual) Myelocytes % (Man) Promyelocytes % (Man) Blast Cells % (Manual) Nucleated RBC % Metamyelocytes Hypochromia Platelet Estimate Platelet Comment Polychromasia Poikilocytosis Basophilic Stippling Anisocytosis Microcytosis Macrocytosis Spherocytes Tear Drop Cells Ovalocytes Stomatocytes PTT (Actin FS) 30.1 Sodium Potassium Chloride Carbon Dioxide Anion Gap BUN Creatinine Est GFR (CKD-EPI)AfAm Est GFR (CKD-EPI)NonAf POC Glucometer 170 Random Glucose Lactic Acid Calcium Total Bilirubin AST ALT Alkaline Phosphatase Total Protein Albumin Urine Color Urine Appearance Urine pH Ur Specific [place] Urine Protein Urine Glucose (UA) Urine Ketones Urine Blood Urine Nitrite Urine Bilirubin Urine Urobilinogen Ur Leukocyte Esterase Urine WBC (Auto) Urine RBC (Auto) Urine Casts (Auto) U Pathogenic Cast Auto U Epithel Cells (Auto) U Sm Round Cell (Auto) Urine Bacteria (Auto) Urine Myoglobin Urine Osmolality 363 10/15/18 10/15/18 10/15/18 05:35 05:35 05:35 WBC 19.1 H RBC 3.53 L Hgb 9.5 L Hct 29.6 L MCV 83.8 MCH 26.9 MCHC 32.1 RDW 18.7 H Plt Count 102 L MPV 10.8 Absolute Neuts (auto) 17.3 H Neutrophils % 90.8 H Neutrophils % (Manual) 92.0 H Band Neutrophils % 0.0 Lymphocytes % 1.3 L D Lymphocytes % (Manual) 2.0 L D Monocytes % 7.8 D Monocytes % (Manual) 6 D Eosinophils % 0.0 Eosinophils % (Manual) 0.0 Basophils % 0.1 Basophils % (Manual) 0.0 Myelocytes % (Man) 0 Promyelocytes % (Man) 0 Blast Cells % (Manual) 0 Nucleated RBC % 1 H Metamyelocytes 0 Hypochromia 0 Platelet Estimate Decreased Platelet Comment Present Polychromasia 1+ Poikilocytosis 1+ Basophilic Stippling 1+ Anisocytosis 2+ Microcytosis 1+ Macrocytosis 1+ Spherocytes 1+ Tear Drop Cells 1+ Ovalocytes 1+ Stomatocytes 1+ PTT (Actin FS) Sodium 135 L Potassium 3.4 L Chloride 90 L Carbon Dioxide 37 H Anion Gap 8 BUN 28.1 H Creatinine 0.8 Est GFR (CKD-EPI)AfAm 92.22 Est GFR (CKD-EPI)NonAf 79.57 POC Glucometer Random Glucose 288 H Lactic Acid 3.3 H* Calcium 8.8 Total Bilirubin 0.7 AST 17 ALT 49 Alkaline Phosphatase 74 Total Protein 5.4 L Albumin 2.9 L Urine Color Urine Appearance Urine pH Ur Specific [place] Urine Protein Urine Glucose (UA) Urine Ketones Urine Blood Urine Nitrite Urine Bilirubin Urine Urobilinogen Ur Leukocyte Esterase Urine WBC (Auto) Urine RBC (Auto) Urine Casts (Auto) U Pathogenic Cast Auto U Epithel Cells (Auto) U Sm Round Cell (Auto) Urine Bacteria (Auto) Urine Myoglobin Urine Osmolality 10/15/18 10/15/18 05:43 12:29 WBC RBC Hgb Hct MCV MCH MCHC RDW Plt Count MPV Absolute Neuts (auto) Neutrophils % Neutrophils % (Manual) Band Neutrophils % Lymphocytes % Lymphocytes % (Manual) Monocytes % Monocytes % (Manual) Eosinophils % Eosinophils % (Manual) Basophils % Basophils % (Manual) Myelocytes % (Man) Promyelocytes % (Man) Blast Cells % (Manual) Nucleated RBC % Metamyelocytes Hypochromia Platelet Estimate Platelet Comment Polychromasia Poikilocytosis Basophilic Stippling Anisocytosis Microcytosis Macrocytosis Spherocytes Tear Drop Cells Ovalocytes Stomatocytes PTT (Actin FS) Sodium Potassium Chloride Carbon Dioxide Anion Gap BUN Creatinine Est GFR (CKD-EPI)AfAm Est GFR (CKD-EPI)NonAf POC Glucometer 275 225 Random Glucose Lactic Acid Calcium Total Bilirubin AST ALT Alkaline Phosphatase Total Protein Albumin Urine Color Urine Appearance Urine pH Ur Specific [place] Urine Protein Urine Glucose (UA) Urine Ketones Urine Blood Urine Nitrite Urine Bilirubin Urine Urobilinogen Ur Leukocyte Esterase Urine WBC (Auto) Urine RBC (Auto) Urine Casts (Auto) U Pathogenic Cast Auto U Epithel Cells (Auto) U Sm Round Cell (Auto) Urine Bacteria (Auto) Urine Myoglobin Urine Osmolality Active Medications Generic Name Dose Route Start Last Admin Trade Name Freq PRN Reason Stop Dose Admin Acetaminophen 1,000 mg 10/14/18 16:14 Ofirmev Injection - IVPB Q6H PRN FEVER Cholecalciferol 5,000 unit 10/10/18 10:00 10/15/18 09:46 Vitamin D3 - PO 5,000 unit DAILY CHANG Administration Enoxaparin Sodium 80 mg 10/10/18 11:15 10/15/18 09:45 Lovenox - SQ 80 mg BID CHANG Administration Fludrocortisone Acetate 0.05 mg 10/10/18 11:00 10/15/18 10:03 Florinef - PO 0.05 mg DAILY CHANG Administration Furosemide 40 mg 10/14/18 10:00 10/15/18 09:45 Lasix Injection - IVPUSH 40 mg DAILY CHANG Administration Hydrocortisone Sodium Succinate 50 mg 10/10/18 11:00 10/15/18 09:46 Solu-Cortef - IVPB 50 mg Q6H-IV CHANG Administration Propofol 1,000,000 mcg in 100 mls @ 2.49 mls/hr 10/10/18 10:30 10/15/18 06:10 Diprivan - IVPB 10 mcg/kg/min TITR CHANG 4.98 mls/hr Titration Protocol 5 MCG/KG/MIN Vancomycin HCl 1,000 mg in 250 mls @ 166.667 mls/hr 10/11/18 20:00 10/15/18 09:44 Vancomycin (Pre-Docked) IVPB 166.667 mls/hr Q12H CHANG Administration Protocol Meropenem 1 gm/ Sodium 100 mls @ 200 mls/hr 10/13/18 14:25 10/15/18 09:45 Chloride IVPB 200 mls/hr Q8H-IV CHANG Administration Norepinephrine Bitartrate 8, 500 mls @ 18.75 mls/hr 10/13/18 14:32 10/15/18 06:10 000 mcg/ Dextrose IV 1 mcg/min TITR CHANG 3.75 mls/hr Titration Protocol 5 MCG/MIN Insulin Aspart 1 vial 10/12/18 16:30 10/15/18 05:55 Novolog Vial Sliding Scale - SQ 6 units Q6H CHANG Administration Protocol Insulin Detemir 5 units 10/13/18 22:00 10/14/18 21:37 Levemir Vial SQ 5 units HS CHANG Administration Lactobacillus Acidophilus 1 tab 10/10/18 10:00 10/15/18 09:47 Bacid - PO 1 tab DAILY CHANG Administration Nystatin 1 applic 10/14/18 10:00 10/15/18 10:05 Mycostatin Cream - TP 1 applic BID CHANG Administration Pantoprazole Sodium 40 mg 10/11/18 12:15 10/15/18 09:45 Protonix Iv IVPUSH 40 mg DAILY CHANG Administration Tolterodine Tartrate 2 mg 10/10/18 10:00 10/15/18 10:04 Detrol - PO 2 mg DAILY CHANG Administration ASSESSMENT/PLAN: 62 year old female with PMHx of NYHA III systolic CHF, sarcoidosis, HTN, HLD presented to the ed with 2 days of difficulty breathing with wheezing and initially admitted for acute on chronic CHF exacerbation is brought to ICU for acute decompensation of respiratory status with a temperature of 107. Septic shock Hyperpyrexia Acute respiratory distress History of bilateral pulmonary embolism History of cerebral hemorrhage History of pulmonary sarcoidosis History of Afib AICD with complete heart block Neurologic History of cerebral hemorrhage Acute metabolic encephalopathy -Likely secondary to septic shock vs cardiogenic shock -Sedation with Propofol -Hyperpyrexia -patient now off cooling blanket, continue to monitor rectal temperature -Head CT reveals no acute intracranial pathology Pulmonary Acute respiratory distress -Patient is intubated. - Trial CPAP w/TV 300, air cuff leak testing -History of pulmonary embolism- however documented not compliant with home Eliquis. -Started on therapeutic dose Lovenox 80mg subq BID for anticoagulation -CTA chest negative for acute pulmonary embolism -CXR unchanged from previous, continue to follow - Source of infection still unclear, if patient spikes fever again will obtain repeat cultures at that time. Cardiovascular AICD with complete heart block Troponinemia concerning for ACS -Patient anticoagulated with Lovenox 80mg subq BID > may need to hold if anemia / thrombocytopenia persists -Cardiac ECHO showing: EF 20-25%, decreased LV function, mild elevation of the LV, biprosthetic mitral valve with mild-moderate regurgitation. - F/U repeat cardiac enzymes and EKG to evaluate for cardiac component to shock as the patient's overall clinical picture not showing much change. -On NE of 1 today for pressure support in setting of poor cardiac output, maintain mean arterial pressure equal or greater than 65 mmHg. -Hydrocortisone 50mg IV Q6 hours - transition to PO steroids in the next 24-48 hours -Fludrocortisone 0.05mg PO daily - taper steroids as tolerated - Withhold Coreg and Altace therapies pending hemodynamics stabilization - Withhold Lipitor therapy considering the above-noted abnormal liver function testing, pending resolution of above co-morbidities - Continue diuresis with Lasix> changed from BID to qDaily - Cardiology recommendations appreciated. Gastrointestinal -NPO while patient is intubated -Protonix 40mg IV BID prophylaxis Infectious disease Septic shock; uncertain source -Blood cultures growing Staph Hominis susceptible to Vanc -Follow urine cultures -Urine cultures negative for legionella, pneumonia -Lactic acid peaked at 3.7, was plateauing at 2.9, now elevated at 3.3, will continue to trend -ID consult (Dr. Mehta) - appreciate recs whether to continue Vanc + [place] given blood cultures, will continue Abx therapy pending reccs -Vancomycin 1 gram Q12 hours -Meropenem 1 gram IV Q8 hours - ESR wnL - Redness noted around RIJ, will place LIJ today - Patient still spiking fevers and infectious cause not identified, will repeat cultures if patient spikes fever again Renal -Continue diuresis with lasix 40 IV qDaily -F/u urine myoglobin - replace potassium - F/u urine osm and urine lytes -Dr. Lazo following, recommendations appreciated. Endo Blood glucose elevated today, patient is on steroids -will check sugars q6h -SSI FEN -IV normal saline bolus, caution not to overload -Follow CMP, replete lytes as needed -Continue tube feeds: Low calorie/ high protein goal 50cc/hr with 5cc/hr NS flush. Prophylaxis -Patient is on Lovenox 80mg subq BID -Protonix 40mg IV BID prophylaxis Disposition: We will continue to follow the patient. Thank you for this consultative opportunity. Visit type - Emergency Visit Emergency Visit: Yes ED Registration Date: 10/09/18 Care time: The patient presented to the Emergency Department on the above date and was hospitalized for further evaluation of their emergent condition. - New Patient This patient is new to me today: No - Critical Care Critical Care patient: Yes Total Critical Care Time (in minutes): 40 Critical Care Statement: The care of this patient involved high complexity decision making to prevent further life threatening deterioration of the patient 's condition and/or to evaluate & treat vital organ system(s) failure or risk of failure. ATTENDING PHYSICIAN STATEMENT I saw and evaluated the patient. I reviewed the resident's note and discussed the case with the resident. I agree with the resident's findings and plan as documented. SUBJECTIVE: OBJECTIVE: ASSESSMENT AND PLAN:
--- NOTE | 2018-10-15 13:52 | PROC ---
Central Line Insertion Indication: Sepsis, Vasopressor Risks and Benefits Explained: Yes Consent on Chart: Yes Central Line: Triple Lumen Catheter Anesthesia: 1% Lidocaine Sterile Technique: Yes Ultrasound Guided Assistance: Yes Position: Left Internal Jugular Post Insertion: Yes: Chest X-Ray Ordered Sterile Dressing Applied: Yes
[2018-10-15] MEDS: NOREPINEPHRINE BITARTRATE 8,000 MCG in DEXTROSE 5%-WATER - 492 ML IV SCH (14:00)
[2018-10-15] MEDS: PROPOFOL 1,000,000 MCG/100 ML VIAL IVPB SCH (14:18)
--- NOTE | 2018-10-15 15:36 | PN ---
Progress Note, Physician History of Present Illness: Pt seen and examined at bedside. She remains in the ICU. She remains intubated. - Current Medication List Current Medications: Active Medications Acetaminophen (Ofirmev Injection -) 1,000 mg IVPB Q6H PRN PRN Reason: FEVER Cholecalciferol (Vitamin D3 -) 5,000 unit PO DAILY CHANG Last Admin: 10/15/18 09:46 Dose: 5,000 unit Enoxaparin Sodium (Lovenox -) 80 mg SQ BID CHANG Last Admin: 10/15/18 09:45 Dose: 80 mg Fludrocortisone Acetate (Florinef -) 0.05 mg PO DAILY CHANG Last Admin: 10/15/18 10:03 Dose: 0.05 mg Furosemide (Lasix Injection -) 40 mg IVPUSH DAILY CHANG Last Admin: 10/15/18 09:45 Dose: 40 mg Hydrocortisone Sodium Succinate (Solu-Cortef -) 50 mg IVPB Q6H-IV CHANG Last Admin: 10/15/18 09:46 Dose: 50 mg Propofol (Diprivan -) 1,000,000 mcg in 100 mls @ 2.49 mls/hr IVPB TITR CHANG; Protocol Last Titration: 10/15/18 06:10 Dose: 10 mcg/kg/min, 4.98 mls/hr Vancomycin HCl (Vancomycin (Pre-Docked)) 1,000 mg in 250 mls @ 166.667 mls/hr IVPB Q12H CHANG; Protocol Last Admin: 10/15/18 09:44 Dose: 166.667 mls/hr Meropenem 1 gm/ Sodium (Chloride) 100 mls @ 200 mls/hr IVPB Q8H-IV CHANG Last Admin: 10/15/18 09:45 Dose: 200 mls/hr Norepinephrine Bitartrate 8, (000 mcg/ Dextrose) 500 mls @ 18.75 mls/hr IV TITR CHANG; Protocol Last Titration: 10/15/18 06:10 Dose: 1 mcg/min, 3.75 mls/hr Insulin Aspart (Novolog Vial Sliding Scale -) 1 vial SQ Q6H CHANG; Protocol Last Admin: 10/15/18 05:55 Dose: 6 units Insulin Detemir (Levemir Vial) 5 units SQ HS CHANG Last Admin: 10/14/18 21:37 Dose: 5 units Lactobacillus Acidophilus (Bacid -) 1 tab PO DAILY [facility] Last Admin: 10/15/18 09:47 Dose: 1 tab Nystatin (Mycostatin Cream -) 1 applic TP BID [facility] Last Admin: 10/15/18 10:05 Dose: 1 applic Pantoprazole Sodium (Protonix Iv) 40 mg IVPUSH DAILY [facility] Last Admin: 10/15/18 09:45 Dose: 40 mg Tolterodine Tartrate (Detrol -) 2 mg PO DAILY [facility] Last Admin: 10/15/18 10:04 Dose: 2 mg - Objective Vital Signs: Vital Signs Temperature 98.7 F 10/15/18 10:00 Pulse Rate 103 H 10/15/18 10:00 Respiratory Rate 16 10/15/18 11:57 Blood Pressure 100/79 10/15/18 10:00 O2 Sat by Pulse Oximetry (%) 100 10/15/18 09:00 Constitutional: Yes: Calm Eyes: Yes: Conjunctiva Clear HENT: Yes: Atraumatic Cardiovascular: Yes: S1, S2 Respiratory: Yes: Intubated, Mechanically Ventilated Gastrointestinal: Yes: Soft, Abdomen, Obese Genitourinary: Yes: [place] Present Musculoskeletal: Yes: Muscle Weakness Edema: Yes Edema: LLE: Trace, RLE: Trace Neurological: Yes: Lethargy Labs: CBC, BMP 10/15/18 05:35 10/15/18 05:35 - ....Imaging Chest X-ray: Report Reviewed Problem List - Problems (1) DENISHA (acute kidney injury) Code(s): N17.9 - ACUTE KIDNEY FAILURE, UNSPECIFIED (2) Respiratory failure Code(s): J96.90 - RESPIRATORY FAILURE, UNSP, UNSP W HYPOXIA OR HYPERCAPNIA (3) CHF exacerbation Code(s): I50.9 - HEART FAILURE, UNSPECIFIED Qualifiers: Qualified Code(s): I50.9 - Heart failure, unspecified Assessment/Plan Current Medications Generic Name Dose Route Start Last Admin Trade Name Freq PRN Reason Stop Dose Admin Acetaminophen 1,000 mg 10/14/18 16:14 Ofirmev Injection - IVPB Q6H PRN FEVER Cholecalciferol 5,000 unit 10/10/18 10:00 10/15/18 09:46 Vitamin D3 - PO 5,000 unit DAILY [facility] Administration Enoxaparin Sodium 80 mg 10/10/18 11:15 10/15/18 09:45 Lovenox - SQ 80 mg BID CHANG Administration Fludrocortisone Acetate 0.05 mg 10/10/18 11:00 10/15/18 10:03 Florinef - PO 0.05 mg DAILY CHANG Administration Furosemide 40 mg 10/14/18 10:00 10/15/18 09:45 Lasix Injection - IVPUSH 40 mg DAILY CHANG Administration Hydrocortisone Sodium Succinate 50 mg 10/10/18 11:00 10/15/18 09:46 Solu-Cortef - IVPB 50 mg Q6H-IV CHANG Administration Propofol 1,000,000 mcg in 100 mls @ 2.49 mls/hr 10/10/18 10:30 10/15/18 06:10 Diprivan - IVPB 10 mcg/kg/min TITR CHANG 4.98 mls/hr Titration Protocol 5 MCG/KG/MIN Vancomycin HCl 1,000 mg in 250 mls @ 166.667 mls/hr 10/11/18 20:00 10/15/18 09:44 Vancomycin (Pre-Docked) IVPB 166.667 mls/hr Q12H CHANG Administration Protocol Meropenem 1 gm/ Sodium 100 mls @ 200 mls/hr 10/13/18 14:25 10/15/18 09:45 Chloride IVPB 200 mls/hr Q8H-IV CHANG Administration Norepinephrine Bitartrate 8, 500 mls @ 18.75 mls/hr 10/13/18 14:32 10/15/18 06:10 000 mcg/ Dextrose IV 1 mcg/min TITR CHANG 3.75 mls/hr Titration Protocol 5 MCG/MIN Insulin Aspart 1 vial 10/12/18 16:30 10/15/18 05:55 Novolog Vial Sliding Scale - SQ 6 units Q6H CHANG Administration Protocol Insulin Detemir 5 units 10/13/18 22:00 10/14/18 21:37 Levemir Vial SQ 5 units HS CHANG Administration Lactobacillus Acidophilus 1 tab 10/10/18 10:00 10/15/18 09:47 Bacid - PO 1 tab DAILY CHANG Administration Nystatin 1 applic 10/14/18 10:00 10/15/18 10:05 Mycostatin Cream - TP 1 applic BID CHANG Administration Pantoprazole Sodium 40 mg 10/11/18 12:15 10/15/18 09:45 Protonix Iv IVPUSH 40 mg DAILY CHANG Administration Tolterodine Tartrate 2 mg 10/10/18 10:00 10/15/18 10:04 Detrol - PO 2 mg DAILY CHANG Administration Impression 1. DENISHA 2. resp failure 3. chf 4. hx PE 5. hx htn 6. pulm sarcoid 7. shock 8. a-fib 9. hyponatremia Plan - cont lasix - replace potassium - renal function stabilizing - vent support - monitor urine output and renal function - volume status is improved
--- NOTE | 2018-10-15 21:39 | PN ---
Progress Note, Physician Chief Complaint: intubated/sedated. central line to be removed today. History of Present Illness: Patient is a 62 year old female with PMHx of NYHA III systolic CHF, sarcoidosis , HTN, diabetes, HLD presents to [facility] with 2 days of difficulty breathing with wheezing. Hospitalization complicated when patient was found to be in septic shock requiring pressors, intubation. She was also noted to be hyperthermic with rectal temp of 107F. She remains in the ICU for further management. - Current Medication List Current Medications: Active Medications Acetaminophen (Ofirmev Injection -) 1,000 mg IVPB Q6H PRN PRN Reason: FEVER Cholecalciferol (Vitamin D3 -) 5,000 unit PO DAILY [facility] Last Admin: 10/15/18 09:46 Dose: 5,000 unit Enoxaparin Sodium (Lovenox -) 80 mg SQ BID [facility] Last Admin: 10/15/18 09:45 Dose: 80 mg Fludrocortisone Acetate (Florinef -) 0.05 mg PO DAILY [facility] Last Admin: 10/15/18 10:03 Dose: 0.05 mg Furosemide (Lasix Injection -) 40 mg IVPUSH DAILY [facility] Last Admin: 10/15/18 09:45 Dose: 40 mg Hydrocortisone Sodium Succinate (Solu-Cortef -) 50 mg IVPB Q6H-IV [facility] Last Admin: 10/15/18 15:45 Dose: 50 mg Propofol (Diprivan -) 1,000,000 mcg in 100 mls @ 2.49 mls/hr IVPB TITR [facility]; Protocol Last Admin: 10/15/18 14:18 Dose: 10 mcg/kg/min, 4.98 mls/hr Vancomycin HCl (Vancomycin (Pre-Docked)) 1,000 mg in 250 mls @ 166.667 mls/hr IVPB Q12H [facility]; Protocol Last Admin: 10/15/18 09:44 Dose: 166.667 mls/hr Meropenem 1 gm/ Sodium (Chloride) 100 mls @ 200 mls/hr IVPB Q8H-IV [facility] Last Admin: 10/15/18 18:13 Dose: 200 mls/hr Norepinephrine Bitartrate 8, (000 mcg/ Dextrose) 500 mls @ 18.75 mls/hr IV TITR [facility]; Protocol Last Titration: 10/15/18 18:00 Dose: 2 mcg/min, 7.5 mls/hr Insulin Aspart (Novolog Vial Sliding Scale -) 1 vial SQ Q6H [facility]; Protocol Last Admin: 10/15/18 18:17 Dose: 4 units Insulin Detemir (Levemir Vial) 5 units SQ HS [facility] Last Admin: 10/14/18 21:37 Dose: 5 units Lactobacillus Acidophilus (Bacid -) 1 tab PO DAILY [facility] Last Admin: 10/15/18 09:47 Dose: 1 tab Nystatin (Mycostatin Cream -) 1 applic TP BID [facility] Last Admin: 10/15/18 10:05 Dose: 1 applic Pantoprazole Sodium (Protonix Iv) 40 mg IVPUSH DAILY [facility] Last Admin: 10/15/18 09:45 Dose: 40 mg Tolterodine Tartrate (Detrol -) 2 mg PO DAILY [facility] Last Admin: 10/15/18 10:04 Dose: 2 mg - Objective Vital Signs: Vital Signs Temperature 99.4 F 10/15/18 18:00 Pulse Rate 120 H 10/15/18 19:00 Respiratory Rate 19 10/15/18 20:37 Blood Pressure 96/64 10/15/18 19:00 O2 Sat by Pulse Oximetry (%) 100 10/15/18 16:10 Constitutional: Yes: Well Nourished Eyes: Yes: Conjunctiva Clear HENT: Yes: Atraumatic Neck: Yes: Supple Cardiovascular: Yes: Regular Rate and Rhythm Respiratory: Yes: Diminished, Intubated Gastrointestinal: Yes: Abdomen, Obese Edema: Yes Edema: LUE: 2+ Integumentary: Yes: WNL Neurological: Yes: Lethargy Psychiatric: Yes: Other Labs: CBC, BMP 10/15/18 05:35 10/15/18 05:35 Problem List - Problems (1) Septic shock Assessment/Plan: Shock - likely septic shock in addition to cardiogenic Sedated and intubated on Levophed and milrinone gtt. lactic acid remains elevated, repeat until normalizes on meropenem and Vanco ID following blood cultures pending lactic acid 2.8 Code(s): A41.9 - SEPSIS, UNSPECIFIED ORGANISM; R65.21 - SEVERE SEPSIS WITH SEPTIC SHOCK (2) Respiratory failure with hypoxia Assessment/Plan: remains intubated, sedated care per icu Code(s): J96.91 - RESPIRATORY FAILURE, UNSPECIFIED WITH HYPOXIA (3) DENISHA (acute kidney injury) Assessment/Plan: monitor labs daily renal following Code(s): N17.9 - ACUTE KIDNEY FAILURE, UNSPECIFIED (4) GERD (gastroesophageal reflux disease) Assessment/Plan: protonix iv push Code(s): K21.9 - GASTRO-ESOPHAGEAL REFLUX DISEASE WITHOUT ESOPHAGITIS (5) HTN (hypertension) Assessment/Plan: monitor bp. cardiology following cardiac meds on hold Code(s): I10 - ESSENTIAL (PRIMARY) HYPERTENSION (6) Pacemaker Code(s): Z95.0 - PRESENCE OF CARDIAC PACEMAKER (7) Troponin I above reference range Assessment/Plan: -Cardiology consultation appreciated. -Patient anticoagulated with Lovenox 80mg subq BID -pressors to maintain map >60 Code(s): R74.8 - ABNORMAL LEVELS OF OTHER SERUM ENZYMES (8) Acute on chronic diastolic (congestive) heart failure Assessment/Plan: cardiology following Code(s): I50.33 - ACUTE ON CHRONIC DIASTOLIC (CONGESTIVE) HEART FAILURE (9) Hyperlipidemia Assessment/Plan: start statins when more stable. Code(s): E78.5 - HYPERLIPIDEMIA, UNSPECIFIED Qualifiers: Hyperlipidemia type: pure hypercholesterolemia Qualified Code(s): E78.00 - Pure hypercholesterolemia, unspecified; E78.0 - Pure hypercholesterolemia (10) Hypertensive cardiomyopathy Code(s): I11.9 - HYPERTENSIVE HEART DISEASE WITHOUT HEART FAILURE; I42.9 - CARDIOMYOPATHY, UNSPECIFIED Qualifiers: Heart failure presence: with heart failure Qualified Code(s): I11.0 - Hypertensive heart disease with heart failure; I43 - Cardiomyopathy in diseases classified elsewhere (11) Mitral valvular prolapse Code(s): I34.1 - NONRHEUMATIC MITRAL (VALVE) PROLAPSE (12) Diabetes Assessment/Plan: on novolog ss, levemir 5 Code(s): E11.9 - TYPE 2 DIABETES MELLITUS WITHOUT COMPLICATIONS (13) Prophylactic measure Assessment/Plan: fen on pressors started on jevity feeds via ngt on lovenox bid Code(s): Z29.9 - ENCOUNTER FOR PROPHYLACTIC MEASURES, UNSPECIFIED Visit type - Emergency Visit Emergency Visit: Yes ED Registration Date: 10/09/18 Care time: The patient presented to the Emergency Department on the above date and was hospitalized for further evaluation of their emergent condition. - New Patient This patient is new to me today: No - Critical Care Critical Care patient: Yes Total Critical Care Time (in minutes): 45 Critical Care Statement: The care of this patient involved high complexity decision making to prevent further life threatening deterioration of the patient 's condition and/or to evaluate & treat vital organ system(s) failure or risk of failure. - Discharge Referral Referred to [facility] No
[2018-10-15] MEDS: INSULIN (LEVEMIR) 100 UNITS/ML UNITS SQ SCH (22:11)
[2018-10-16] MEDS ORDERED: SODIUM CHLORIDE 100 ML IVPB ONE ×3 (03:09→17:43)
[2018-10-16] MEDS ORDERED: MEROPENEM 1 GM VIAL (RESTRICTED TO ID) IVPB ONE ×3 (03:09→17:43)
[2018-10-16] MEDS: MEROPENEM 1 GM in SODIUM CHLORIDE 100 ML IVPB SCH ×3 (03:14→17:45)
[2018-10-16] MEDS: HYDROCORTISONE SOD SUCCINATE 100 MG/2 ML VIAL IVPB SCH ×4 (03:14→20:33)
[2018-10-16] MEDS: INSULIN SLIDING SCALE (NOVOLOG) 1 VIAL SQ SCH ×4 (06:25→22:48)
[2018-10-16 07:08] LABS: HEMATOCRIT 28.5 % (32.4-45.2); HEMOGLOBIN 9.1 GM/dL (10.7-15.3); MCHC 31.9 g/dl (32.0-36.0); MEAN CELL VOLUME 84.4 fl (80-96); MEAN PLT VOLUME 10.4 fl (7.5-11.1); PLATELET COUNT 91 K/MM3 (134-434); RBC 3.37 M/mm3 (3.60-5.2); RDW 18.4 % (11.6-15.6); WHITE BLOOD COUNT 17.6 K/mm3 (4.0-10.0)
[2018-10-16 07:17] LABS: ALBUMIN 2.8 g/dl (3.4-5.0); BILIRUBIN,TOTAL 0.8 mg/dL (0.2-1); BLOOD UREA NITROGEN 36.5 mg/dL (7-18); CALCIUM 8.6 mg/dL (8.5-10.1); CREATININE 0.7 mg/dL (0.55-1.3); MAGNESIUM 2.4 mg/dL (1.8-2.4); PHOSPHOROUS 3.2 mg/dL (2.5-4.9); POTASSIUM 5.1 mmol/L (3.5-5.1); TOT PROT 5.5 g/dl (6.4-8.2)
[2018-10-16] MEDS: VANCOMYCIN 1 GRAM (PRE-DOCKED) 1,000 MG/250 ML BAG IVPB SCH ×2 (08:00→20:34)
--- NOTE | 2018-10-16 08:13 | PN ---
Progress Note (short form) - Note Progress Note: Chief Complaint: Events noted, notes reviewed, patient remains intubated, sedated and on pressors History of Present Illness: Seen and examined in the ICU. Events noted, notes reviewed, patient remains intubated, sedated and on pressors In summary known history of cerebellar bleed, mitral valve disease post mitral valve replacement-Bioprosthesis/history of mitral valve prolapse with moderate to severe mitral valve regurgitation, tricuspid valve repair, pulmonary sarcoidosis, systolic left ventricular dysfunction post prophylactic ICD implantation, AV block, paroxysmal atrial fibrillation and pulmonary thromboembolism on anticoagulation therapy Echocardiography performed March 29, 2018 revealed moderately reduced left ventricular systolic function with LVEF between 35-40%, Bioprosthetic mitral valve with mild mitral valve regurgitation,mild tricuspid valve regurgitation Echocardiography performed October 11, 2018 revealed left ventricular cavity dilatation with severe reduction in left ventricular ejection fraction estimated LVEF between 20-25% - Current Medication List Current Medications Acetaminophen (Ofirmev Injection -) 1,000 mg IVPB Q6H PRN PRN Reason: FEVER Cholecalciferol (Vitamin D3 -) 5,000 unit PO DAILY [facility] Last Admin: 10/15/18 09:46 Dose: 5,000 unit Enoxaparin Sodium (Lovenox -) 80 mg SQ BID [facility] Last Admin: 10/15/18 22:10 Dose: 80 mg Fludrocortisone Acetate (Florinef -) 0.05 mg PO DAILY [facility] Last Admin: 10/15/18 10:03 Dose: 0.05 mg Furosemide (Lasix Injection -) 40 mg IVPUSH DAILY [facility] Last Admin: 10/15/18 09:45 Dose: 40 mg Hydrocortisone Sodium Succinate (Solu-Cortef -) 50 mg IVPB Q6H-IV [facility] Last Admin: 10/16/18 03:14 Dose: 50 mg Propofol (Diprivan -) 1,000,000 mcg in 100 mls @ 2.49 mls/hr IVPB TITR [facility]; Protocol Last Titration: 10/16/18 05:00 Dose: 10 mcg/kg/min, 4.98 mls/hr Vancomycin HCl (Vancomycin (Pre-Docked)) 1,000 mg in 250 mls @ 166.667 mls/hr IVPB Q12H [facility]; Protocol Last Admin: 10/15/18 22:11 Dose: 166.667 mls/hr Meropenem 1 gm/ Sodium (Chloride) 100 mls @ 200 mls/hr IVPB Q8H-IV [facility] Last Admin: 10/16/18 03:14 Dose: 200 mls/hr Norepinephrine Bitartrate 8, (000 mcg/ Dextrose) 500 mls @ 18.75 mls/hr IV TITR [facility]; Protocol Last Titration: 10/15/18 18:00 Dose: 2 mcg/min, 7.5 mls/hr Insulin Aspart (Novolog Vial Sliding Scale -) 1 vial SQ Q6H [facility]; Protocol Last Admin: 10/16/18 06:25 Dose: 6 units Insulin Detemir (Levemir Vial) 5 units SQ HS [facility] Last Admin: 10/15/18 22:11 Dose: 5 units Lactobacillus Acidophilus (Bacid -) 1 tab PO DAILY [facility] Last Admin: 10/15/18 09:47 Dose: 1 tab Nystatin (Mycostatin Cream -) 1 applic TP BID [facility] Last Admin: 10/15/18 22:08 Dose: 1 applic Pantoprazole Sodium (Protonix Iv) 40 mg IVPUSH DAILY [facility] Last Admin: 10/15/18 09:45 Dose: 40 mg Tolterodine Tartrate (Detrol -) 2 mg PO DAILY [facility] Last Admin: 10/15/18 10:04 Dose: 2 mg Review of Systems - Review of Systems Unable to obtain - Objective Vital Signs: Last Vital Signs Temp Pulse Resp BP Pulse Ox 98 F 104 H 19 96/75 100 10/16/18 05:00 10/16/18 05:00 10/16/18 06:24 10/16/18 05:00 10/15/18 22:40 Intake & Output 10/13/18 10/14/18 10/15/18 10/16/18 23:59 23:59 23:59 23:59 Intake Total 943.8 1632 1440 970 Output Total 1600 3700 1500 300 Balance -656.2 -2068 -60 670 Weight 188 lb 8 oz 187 lb 12.8 oz 183 lb 4 oz 184 lb 1 oz Constitutional: Intubated Neck: Supple Negative JVD No Bruit Cardiovascular: S1 S2 Regular Rate and Rhythm Respiratory: Scattered Rhonchi Bilaterally Gastrointestinal: Soft Benign Normal Bowel Sounds Ext: Edema Labs: CBC, BMP 10/16/18 05:35 CBC pending from this AM Hepatic Panel Total Bilirubin 0.8 mg/dL (0.2-1) 10/16/18 05:35 AST 20 U/L (15-37) 10/16/18 05:35 ALT 41 U/L (13-61) 10/16/18 05:35 Alkaline Phosphatase 84 U/L (45-117) 10/16/18 05:35 Albumin 2.8 g/dl (3.4-5.0) L 10/16/18 05:35 ABG Results ABG pH 7.40 (7.35-7.45) 10/13/18 11:04 ABG pCO2 at Pt Temp 47.4 mmHg (35-45) H 10/13/18 11:04 ABG pO2 at Pt Temp < 49 mmHg (80-100) L* 10/13/18 11:04 ABG HCO3 29.0 mmol/L (22-27) H 10/13/18 11:04 ABG O2 Sat (Measured) 34.0 % (95-98) L 10/13/18 11:04 ABG O2 Content No Result Required. 10/13/18 11:04 ABG Base Excess 3.9 meq/l (-2-2) H 10/13/18 11:04 Assessment/Plan ASSESSMENT: 1. Clinical presentation is consistent with septic shock remains on pressors- source of sepsis unclear/to be determined 2. 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 Systolic left ventricular dysfunction related to non-ischemic dilated cardiomyopathy, Class I-II [place] [employer] classification left ventricular failure- LVEF between 35-40% on echocardiography performed March 29, 2018/LVEF between 20-25% on echocardiography performed yesterday October 11, 2018 4. Post ICD implantation for syncope and complete heart block 5. Post tricuspid valve annuloplasty, for management of severe tricuspid valve regurgitation 6. 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 History of recent pulmonary thromboembolism on anticoagulation therapy 8. Chronic kidney disease- pre-renal azotemia 8. Hyponatremia and Hypokalemia- resolved 10. Anemia and thrombocytopenia- pending AM blood test PLAN: 1. Continue pressors and titrate dosage to off provided mean arterial pressure is equal or greater than 65 mmHg- and as outlined in the prior note if unable to wean off of pressors may consider right heart catheterization/[place]-Baldev catheter insertion to assist with volume management 2. If anemia and thrombocytopenia are persistent Lovenox therapy may need to be withheld- pending repeat CBC this AM 3. Continue to withhold Coreg and Altace therapies pending hemodynamics stabilization 4. Diuretic therapy to be utilized with caution and close monitoring of renal function and electrolytes 5. Antibiotics as per the primary team Condition critical Nusrat Cheung M.D.
--- NOTE | 2018-10-16 09:28 | PN ---
Progress Note (short form) - Note Progress Note: PULMONARY/CRITICAL CARE PROGRESS NOTE: SUBJECTIVE: -Pt seen and examined in the ICU. -Remains intubated, awakens and follows commands off Propofol, but extremely weak (unable to lift head off of pillow) -Placed on PSV 10/5 while examining her - doing ok for now -Norepi is at 2mcg/min -On steroids OBJECTIVE: Current Medications Acetaminophen (Ofirmev Injection -) 1,000 mg IVPB Q6H PRN PRN Reason: FEVER Cholecalciferol (Vitamin D3 -) 5,000 unit PO DAILY [facility] Last Admin: 10/15/18 09:46 Dose: 5,000 unit Enoxaparin Sodium (Lovenox -) 80 mg SQ BID [facility] Last Admin: 10/15/18 22:10 Dose: 80 mg Fludrocortisone Acetate (Florinef -) 0.05 mg PO DAILY [facility] Last Admin: 10/15/18 10:03 Dose: 0.05 mg Furosemide (Lasix Injection -) 40 mg IVPUSH DAILY [facility] Last Admin: 10/15/18 09:45 Dose: 40 mg Hydrocortisone Sodium Succinate (Solu-Cortef -) 50 mg IVPB Q6H-IV [facility] Last Admin: 10/16/18 03:14 Dose: 50 mg Propofol (Diprivan -) 1,000,000 mcg in 100 mls @ 2.49 mls/hr IVPB TITR [facility]; Protocol Last Titration: 10/16/18 05:00 Dose: 10 mcg/kg/min, 4.98 mls/hr Vancomycin HCl (Vancomycin (Pre-Docked)) 1,000 mg in 250 mls @ 166.667 mls/hr IVPB Q12H [facility]; Protocol Last Admin: 10/15/18 22:11 Dose: 166.667 mls/hr Meropenem 1 gm/ Sodium (Chloride) 100 mls @ 200 mls/hr IVPB Q8H-IV [facility] Last Admin: 10/16/18 03:14 Dose: 200 mls/hr Norepinephrine Bitartrate 8, (000 mcg/ Dextrose) 500 mls @ 18.75 mls/hr IV TITR [facility]; Protocol Last Titration: 10/15/18 18:00 Dose: 2 mcg/min, 7.5 mls/hr Insulin Aspart (Novolog Vial Sliding Scale -) 1 vial SQ Q6H [facility]; Protocol Last Admin: 10/16/18 06:25 Dose: 6 units Insulin Detemir (Levemir Vial) 5 units SQ HS [facility] Last Admin: 10/15/18 22:11 Dose: 5 units Lactobacillus Acidophilus (Bacid -) 1 tab PO DAILY [facility] Last Admin: 10/15/18 09:47 Dose: 1 tab Nystatin (Mycostatin Cream -) 1 applic TP BID [facility] Last Admin: 10/15/18 22:08 Dose: 1 applic Pantoprazole Sodium (Protonix Iv) 40 mg IVPUSH DAILY [facility] Last Admin: 10/15/18 09:45 Dose: 40 mg Tolterodine Tartrate (Detrol -) 2 mg PO DAILY [facility] Last Admin: 10/15/18 10:04 Dose: 2 mg Vital Signs Temp 98 F 10/16/18 05:00 Pulse 94 H 10/16/18 08:32 Resp 20 10/16/18 08:32 BP 105/73 10/16/18 08:32 Pulse Ox 100 10/16/18 08:00 Intake & Output 10/15/18 10/16/18 10/16/18 18:59 06:59 18:59 Intake Total 1190 1220 Output Total 1200 600 Balance -10 620 Weight 83.489 kg Intake: IV 60 60 DIPRIVAN - 1,000,000 mcg 60 60 In 100 ml @ 5 MCG/KG/MIN 2.49 mls/hr IVPB TITR [facility] Rx#:[id number] IVPB 650 440 Oral 0 Tube Feeding 400 600 Tube Irrigant 80 120 Output: Urine 1200 600 [place] 1200 600 Other: Voiding Method Indwelling Catheter Indwelling Catheter Bowel Movement No Gen: intubated, follows commands Heart: tachy, paced Lung: bibasular crackles Abd: obese, soft, nontender Ext: + edema, extremely weak CBC, BMP 10/16/18 05:35 10/16/18 05:35 ASSESSMENT AND PLAN: Acute Hypoxic Respiratory Failure Septic shock - improving h/o Bilateral Pulmonary Emboli Pulmonary Sarcoidosis Atrial Fibrillation s/p PPM Thrombocytopenia h/o Intracranial Hemorrhage Critical illness polyneuropathy and myopathy - continue antibiotics - reculture if febrile - maintain MAP >65 - continue empiric steroids, but would ideally like to wean when off pressors as this is worsening neuromuscular weakness - rate control - continue anticoagulation - replete lytes - enteral feeds - daily sedation vacations to assess mental status - spontaneous breathing trial daily and trial of extubation - DVT/GI prophylaxis - continue ICU monitoring critical care time spent in reviewing chart, evaluating patient and formulating plan 35 min [facility] [place] Pulm/Critical Care [employer]
[2018-10-16] MEDS: ENOXAPARIN NA (PORCINE) 80 MG/0.8 ML DISP.SYRIN SQ SCH ×2 (10:44→22:48)
[2018-10-16] MEDS: FUROSEMIDE 40 MG/4 ML INJECTABLE VIAL IVPUSH SCH (10:44)
[2018-10-16] MEDS: FLUDROCORTISONE ACETATE 0.1 MG TABLET (FP) PO SCH (10:44)
[2018-10-16] MEDS: LACTOBACILLUS ACIDOPHILUS 1 TABLET PO SCH (10:44)
[2018-10-16] MEDS: TOLTERODINE TARTRATE 2 MG TABLET PO SCH (10:44)
[2018-10-16] MEDS: NYSTATIN 100,000 UNIT/GM TOPICAL CREAM 15 GM TUBE TP SCH ×2 (10:45→22:48)
[2018-10-16] MEDS: PANTOPRAZOLE SODIUM 40 MG VIAL IVPUSH SCH (10:45)
[2018-10-16] MEDS: CHOLECALCIFEROL (VIT D3) 1,000 UNIT (25 MCG) TABLET PO SCH (10:45)
--- NOTE | 2018-10-16 11:31 | PN ---
Progress Note, Physician History of Present Illness: more awake and alert still intubated says she feels so so wbc trending down - Current Medication List Current Medications: Active Medications Acetaminophen (Ofirmev Injection -) 1,000 mg IVPB Q6H PRN PRN Reason: FEVER Cholecalciferol (Vitamin D3 -) 5,000 unit PO DAILY [facility] Last Admin: 10/16/18 10:45 Dose: 5,000 unit Enoxaparin Sodium (Lovenox -) 80 mg SQ BID [facility] Last Admin: 10/16/18 10:44 Dose: 80 mg Fludrocortisone Acetate (Florinef -) 0.05 mg PO DAILY [facility] Last Admin: 10/16/18 10:44 Dose: 0.05 mg Furosemide (Lasix Injection -) 40 mg IVPUSH DAILY [facility] Last Admin: 10/16/18 10:44 Dose: 40 mg Hydrocortisone Sodium Succinate (Solu-Cortef -) 50 mg IVPB Q6H-IV [facility] Last Admin: 10/16/18 09:56 Dose: 50 mg Propofol (Diprivan -) 1,000,000 mcg in 100 mls @ 2.49 mls/hr IVPB TITR [facility]; Protocol Last Titration: 10/16/18 05:00 Dose: 10 mcg/kg/min, 4.98 mls/hr Vancomycin HCl (Vancomycin (Pre-Docked)) 1,000 mg in 250 mls @ 166.667 mls/hr IVPB Q12H [facility]; Protocol Last Admin: 10/16/18 08:00 Dose: 166.667 mls/hr Meropenem 1 gm/ Sodium (Chloride) 100 mls @ 200 mls/hr IVPB Q8H-IV [facility] Last Admin: 10/16/18 10:45 Dose: 200 mls/hr Norepinephrine Bitartrate 8, (000 mcg/ Dextrose) 500 mls @ 18.75 mls/hr IV TITR [facility]; Protocol Last Titration: 10/15/18 18:00 Dose: 2 mcg/min, 7.5 mls/hr Insulin Aspart (Novolog Vial Sliding Scale -) 1 vial SQ Q6H [facility]; Protocol Last Admin: 10/16/18 06:25 Dose: 6 units Insulin Detemir (Levemir Vial) 5 units SQ HS [facility] Last Admin: 10/15/18 22:11 Dose: 5 units Lactobacillus Acidophilus (Bacid -) 1 tab PO DAILY [facility] Last Admin: 10/16/18 10:44 Dose: 1 tab Nystatin (Mycostatin Cream -) 1 applic TP BID [facility] Last Admin: 10/16/18 10:45 Dose: 1 applic Pantoprazole Sodium (Protonix Iv) 40 mg IVPUSH DAILY [facility] Last Admin: 10/16/18 10:45 Dose: 40 mg Tolterodine Tartrate (Detrol -) 2 mg PO DAILY [facility] Last Admin: 10/16/18 10:44 Dose: 2 mg - Objective Vital Signs: Vital Signs Temperature 98 F 10/16/18 05:00 Pulse Rate 101 H 10/16/18 10:59 Respiratory Rate 20 10/16/18 10:59 Blood Pressure 110/67 10/16/18 10:59 O2 Sat by Pulse Oximetry (%) 100 10/16/18 08:00 Constitutional: Yes: No Distress, Calm Cardiovascular: Yes: Regular Rate and Rhythm, S1, S2 Respiratory: Yes: Intubated, Mechanically Ventilated Gastrointestinal: Yes: Normal Bowel Sounds, Soft Musculoskeletal: Yes: WNL Extremities: Yes: WNL Neurological: Yes: Alert, Oriented Psychiatric: Yes: Alert, Oriented Labs: CBC, BMP 10/16/18 05:35 10/16/18 05:35 Assessment/Plan Problem List - Problems (1) GERD (gastroesophageal reflux disease) Code(s): K21.9 - GASTRO-ESOPHAGEAL REFLUX DISEASE WITHOUT ESOPHAGITIS (3) HTN (hypertension) Code(s): I10 - ESSENTIAL (PRIMARY) HYPERTENSION (4) Pacemaker Code(s): Z95.0 - PRESENCE OF CARDIAC PACEMAKER (5) Respiratory failure with hypoxia Code(s): J96.91 - RESPIRATORY FAILURE, UNSPECIFIED WITH HYPOXIA (6) Shock Code(s): R57.9 - SHOCK, UNSPECIFIED (7) Acute on chronic diastolic (congestive) heart failure Code(s): I50.33 - ACUTE ON CHRONIC DIASTOLIC (CONGESTIVE) HEART FAILURE (8) Hyperlipidemia Code(s): E78.5 - HYPERLIPIDEMIA, UNSPECIFIED Qualifiers: Hyperlipidemia type: pure hypercholesterolemia Qualified Code(s): E78.00 - Pure hypercholesterolemia, unspecified; E78.0 - Pure hypercholesterolemia (9) Pulmonary embolism Code(s): I26.99 - OTHER PULMONARY EMBOLISM WITHOUT ACUTE COR PULMONALE (11) Sarcoidosis Code(s): D86.9 - SARCOIDOSIS, UNSPECIFIED (12) Status post tricuspid valve repair Code(s): Z98.890 - OTHER SPECIFIED POSTPROCEDURAL STATES Assessment/Plan 62 y.o. female with PMH of b/l PE diagnosed 09/10/18 on Eliquis, systolic CHF, s/ p PPM, tricuspid repair and bioprosthetic MV repair, Sarcoidosis, hemorrhagic CVA, COPD, HTN, HLD, GERD, s/p cholecystectomy and LT hip surgery initially presented for c/o progressive SOB over the past 2 wks with weakness. Has been reportedly noncompliant with taking Lasix but taking Eliquis. Was transferred to the ICU for respiratory failure requiring intubation, hypotension, hyperthermia. Shock - likely Septic shock in addition to Cardiogenic Acute hypoxemic respiratory failure s/p intubation Hyperthermia B/L PE - r/o new embolism Sarcoidosis Hx of hemorrhagic CVA s/p AICD s/p tricuspid valve repair, bioprosthetic MV replacement Hx of UTI recently on antibiotics patient still intubated clear cut source still not present lactic acid still high plan continue current mgmt lactic acid trend wbc trending down rest as per the team and icu cx report noted cc 40 min
--- NOTE | 2018-10-16 12:25 | PN ---
Progress Note, Physician History of Present Illness: Pt seen and examined at bedside. She remains in the ICU. She is making urine. - Current Medication List Current Medications: Active Medications Acetaminophen (Ofirmev Injection -) 1,000 mg IVPB Q6H PRN PRN Reason: FEVER Cholecalciferol (Vitamin D3 -) 5,000 unit PO DAILY [facility] Last Admin: 10/16/18 10:45 Dose: 5,000 unit Enoxaparin Sodium (Lovenox -) 80 mg SQ BID [facility] Last Admin: 10/16/18 10:44 Dose: 80 mg Fentanyl (Sublimaze Injection -) 50 mcg IVPUSH Q2H PRN PRN Reason: PAIN LEVEL 4 - 6 Stop: 10/17/18 12:29 Fentanyl (Sublimaze Injection -) 100 mcg IVPUSH Q2H PRN PRN Reason: PAIN LEVEL 7 - 10 Stop: 10/17/18 12:16 Fludrocortisone Acetate (Florinef -) 0.05 mg PO DAILY [facility] Last Admin: 10/16/18 10:44 Dose: 0.05 mg Furosemide (Lasix Injection -) 40 mg IVPUSH DAILY [facility] Last Admin: 10/16/18 10:44 Dose: 40 mg Hydrocortisone Sodium Succinate (Solu-Cortef -) 50 mg IVPB Q6H-IV [facility] Last Admin: 10/16/18 09:56 Dose: 50 mg Vancomycin HCl (Vancomycin (Pre-Docked)) 1,000 mg in 250 mls @ 166.667 mls/hr IVPB Q12H [facility]; Protocol Last Admin: 10/16/18 08:00 Dose: 166.667 mls/hr Meropenem 1 gm/ Sodium (Chloride) 100 mls @ 200 mls/hr IVPB Q8H-IV [facility] Last Admin: 10/16/18 10:45 Dose: 200 mls/hr Norepinephrine Bitartrate 8, (000 mcg/ Dextrose) 500 mls @ 18.75 mls/hr IV TITR [facility]; Protocol Last Titration: 10/15/18 18:00 Dose: 2 mcg/min, 7.5 mls/hr Insulin Aspart (Novolog Vial Sliding Scale -) 1 vial SQ Q6H [facility]; Protocol Last Admin: 10/16/18 06:25 Dose: 6 units Insulin Detemir (Levemir Vial) 5 units SQ HS [facility] Last Admin: 10/15/18 22:11 Dose: 5 units Lactobacillus Acidophilus (Bacid -) 1 tab PO DAILY [facility] Last Admin: 10/16/18 10:44 Dose: 1 tab Nystatin (Mycostatin Cream -) 1 applic TP BID [facility] Last Admin: 10/16/18 10:45 Dose: 1 applic Pantoprazole Sodium (Protonix Iv) 40 mg IVPUSH DAILY [facility] Last Admin: 10/16/18 10:45 Dose: 40 mg Tolterodine Tartrate (Detrol -) 2 mg PO DAILY [facility] Last Admin: 10/16/18 10:44 Dose: 2 mg - Objective Vital Signs: Vital Signs Temperature 98 F 10/16/18 05:00 Pulse Rate 101 H 10/16/18 10:59 Respiratory Rate 20 10/16/18 10:59 Blood Pressure 110/67 10/16/18 10:59 O2 Sat by Pulse Oximetry (%) 100 10/16/18 08:00 Constitutional: Yes: Calm Eyes: Yes: Conjunctiva Clear HENT: Yes: Atraumatic Neck: Yes: Supple Cardiovascular: Yes: S1, S2 Respiratory: Yes: Intubated, Mechanically Ventilated Gastrointestinal: Yes: Normal Bowel Sounds, Soft, Abdomen, Obese Genitourinary: Yes: Barclay Present Musculoskeletal: Yes: Muscle Weakness Edema: Yes Edema: LLE: 1+, RLE: 1+ Neurological: Yes: Other (awake) Labs: CBC, BMP 10/16/18 05:35 10/16/18 05:35 Problem List - Problems (1) DENISHA (acute kidney injury) Code(s): N17.9 - ACUTE KIDNEY FAILURE, UNSPECIFIED (2) Respiratory failure Code(s): J96.90 - RESPIRATORY FAILURE, UNSP, UNSP W HYPOXIA OR HYPERCAPNIA (3) CHF exacerbation Code(s): I50.9 - HEART FAILURE, UNSPECIFIED Qualifiers: Heart failure type: unspecified Qualified Code(s): I50.9 - Heart failure, unspecified Assessment/Plan Current Medications Generic Name Dose Route Start Last Admin Trade Name Freq PRN Reason Stop Dose Admin Acetaminophen 1,000 mg 10/14/18 16:14 Ofirmev Injection - IVPB Q6H PRN FEVER Cholecalciferol 5,000 unit 10/10/18 10:00 10/16/18 10:45 Vitamin D3 - PO 5,000 unit DAILY [facility] Administration Enoxaparin Sodium 80 mg 10/10/18 11:15 10/16/18 10:44 Lovenox - SQ 80 mg BID [facility] Administration Fentanyl 50 mcg 10/16/18 12:16 Sublimaze Injection - IVPUSH 10/17/18 12:29 Q2H PRN PAIN LEVEL 4 - 6 Fentanyl 100 mcg 10/16/18 12:17 Sublimaze Injection - IVPUSH 10/17/18 12:16 Q2H PRN PAIN LEVEL 7 - 10 Fludrocortisone Acetate 0.05 mg 10/10/18 11:00 10/16/18 10:44 Florinef - PO 0.05 mg DAILY [facility] Administration Furosemide 40 mg 10/14/18 10:00 10/16/18 10:44 Lasix Injection - IVPUSH 40 mg DAILY [facility] Administration Hydrocortisone Sodium Succinate 50 mg 10/10/18 11:00 10/16/18 09:56 Solu-Cortef - IVPB 50 mg Q6H-IV [facility] Administration Vancomycin HCl 1,000 mg in 250 mls @ 166.667 mls/hr 10/11/18 20:00 10/16/18 08:00 Vancomycin (Pre-Docked) IVPB 166.667 mls/hr Q12H [facility] Administration Protocol Meropenem 1 gm/ Sodium 100 mls @ 200 mls/hr 10/13/18 14:25 10/16/18 10:45 Chloride IVPB 200 mls/hr Q8H-IV [facility] Administration Norepinephrine Bitartrate 8, 500 mls @ 18.75 mls/hr 10/13/18 14:32 10/15/18 18:00 000 mcg/ Dextrose IV 2 mcg/min TITR [facility] 7.5 mls/hr Titration Protocol 5 MCG/MIN Insulin Aspart 1 vial 10/12/18 16:30 10/16/18 06:25 Novolog Vial Sliding Scale - SQ 6 units Q6H [facility] Administration Protocol Insulin Detemir 5 units 10/13/18 22:00 10/15/18 22:11 Levemir Vial SQ 5 units HS [facility] Administration Lactobacillus Acidophilus 1 tab 10/10/18 10:00 10/16/18 10:44 Bacid - PO 1 tab DAILY [facility] Administration Nystatin 1 applic 10/14/18 10:00 10/16/18 10:45 Mycostatin Cream - TP 1 applic BID [facility] Administration Pantoprazole Sodium 40 mg 10/11/18 12:15 10/16/18 10:45 Protonix Iv IVPUSH 40 mg DAILY [facility] Administration Tolterodine Tartrate 2 mg 10/10/18 10:00 10/16/18 10:44 Detrol - PO 2 mg DAILY [facility] Administration Impression 1. DENISHA 2. resp failure 3. chf 4. hx PE 5. hx htn 6. pulm sarcoid 7. shock 8. a-fib 9. hyponatremia Plan - sodium is improved - cont lasix - monitor volume status - vent support - monitor urine output and renal function
--- NOTE | 2018-10-16 17:25 | PN ---
Progress Note, Physician Chief Complaint: intubated/sedated, off propofol. eyes open, following simple commands. History of Present Illness: Patient is a 62 year old female with PMHx of NYHA III systolic CHF, sarcoidosis , HTN, diabetes, HLD presents to [facility] with 2 days of difficulty breathing with wheezing. Hospitalization complicated when patient was found to be in septic shock requiring pressors, intubation. She was also noted to be hyperthermic with rectal temp of 107F. She remains in the ICU for further management. - Current Medication List Current Medications: Active Medications Acetaminophen (Ofirmev Injection -) 1,000 mg IVPB Q6H PRN PRN Reason: FEVER Cholecalciferol (Vitamin D3 -) 5,000 unit PO DAILY [facility] Last Admin: 10/16/18 10:45 Dose: 5,000 unit Enoxaparin Sodium (Lovenox -) 80 mg SQ BID [facility] Last Admin: 10/16/18 10:44 Dose: 80 mg Fentanyl (Sublimaze Injection -) 50 mcg IVPUSH Q2H PRN PRN Reason: PAIN LEVEL 4 - 6 Stop: 10/17/18 12:29 Fentanyl (Sublimaze Injection -) 100 mcg IVPUSH Q2H PRN PRN Reason: PAIN LEVEL 7 - 10 Stop: 10/17/18 12:16 Fludrocortisone Acetate (Florinef -) 0.05 mg PO DAILY [facility] Last Admin: 10/16/18 10:44 Dose: 0.05 mg Furosemide (Lasix Injection -) 40 mg IVPUSH DAILY [facility] Last Admin: 10/16/18 10:44 Dose: 40 mg Hydrocortisone Sodium Succinate (Solu-Cortef -) 50 mg IVPB Q6H-IV [facility] Last Admin: 10/16/18 16:00 Dose: 50 mg Vancomycin HCl (Vancomycin (Pre-Docked)) 1,000 mg in 250 mls @ 166.667 mls/hr IVPB Q12H [facility]; Protocol Last Admin: 10/16/18 08:00 Dose: 166.667 mls/hr Meropenem 1 gm/ Sodium (Chloride) 100 mls @ 200 mls/hr IVPB Q8H-IV [facility] Last Admin: 10/16/18 10:45 Dose: 200 mls/hr Norepinephrine Bitartrate 8, (000 mcg/ Dextrose) 500 mls @ 18.75 mls/hr IV TITR [facility]; Protocol Last Titration: 10/15/18 18:00 Dose: 2 mcg/min, 7.5 mls/hr Insulin Aspart (Novolog Vial Sliding Scale -) 1 vial SQ Q6H [facility]; Protocol Last Admin: 10/16/18 16:59 Dose: 2 units Insulin Detemir (Levemir Vial) 5 units SQ HS [facility] Last Admin: 10/15/18 22:11 Dose: 5 units Lactobacillus Acidophilus (Bacid -) 1 tab PO DAILY [facility] Last Admin: 10/16/18 10:44 Dose: 1 tab Nystatin (Mycostatin Cream -) 1 applic TP BID [facility] Last Admin: 10/16/18 10:45 Dose: 1 applic Pantoprazole Sodium (Protonix Iv) 40 mg IVPUSH DAILY [facility] Last Admin: 10/16/18 10:45 Dose: 40 mg Tolterodine Tartrate (Detrol -) 2 mg PO DAILY [facility] Last Admin: 10/16/18 10:44 Dose: 2 mg - Objective Vital Signs: Vital Signs Temperature 98 F 10/16/18 05:00 Pulse Rate 99 H 10/16/18 14:00 Respiratory Rate 22 H 10/16/18 16:39 Blood Pressure 113/83 10/16/18 14:00 O2 Sat by Pulse Oximetry (%) 98 10/16/18 12:34 Constitutional: Yes: Calm Eyes: Yes: WNL HENT: Yes: Atraumatic Neck: Yes: Supple Cardiovascular: Yes: Regular Rate and Rhythm Respiratory: Yes: Intubated, Other (cpap mode) Gastrointestinal: Yes: Normal Bowel Sounds, Soft ...Rectal Exam: Yes: Deferred Genitourinary: Yes: WNL Breast(s): Yes: WNL Musculoskeletal: Yes: WNL Extremities: Yes: WNL Edema: LLE: 1+, RLE: 1+ Integumentary: Yes: WNL Neurological: Yes: Alert Labs: CBC, BMP 10/16/18 05:35 10/16/18 05:35 Problem List - Problems (1) Septic shock Assessment/Plan: Shock - likely septic shock in addition to cardiogenic - improving. Remains intubated, awakens and follows commands off Propofol lactic acid remains elevated, repeat until normalizes on meropenem and Vanco ID following blood cultures pending Code(s): A41.9 - SEPSIS, UNSPECIFIED ORGANISM; R65.21 - SEVERE SEPSIS WITH SEPTIC SHOCK (2) Respiratory failure with hypoxia Assessment/Plan: remains intubated, sedated care per icu Code(s): J96.91 - RESPIRATORY FAILURE, UNSPECIFIED WITH HYPOXIA (3) DENISHA (acute kidney injury) Assessment/Plan: monitor labs daily renal following Code(s): N17.9 - ACUTE KIDNEY FAILURE, UNSPECIFIED (4) GERD (gastroesophageal reflux disease) Assessment/Plan: protonix iv push Code(s): K21.9 - GASTRO-ESOPHAGEAL REFLUX DISEASE WITHOUT ESOPHAGITIS (5) HTN (hypertension) Assessment/Plan: monitor bp. cardiology following cardiac meds on hold Code(s): I10 - ESSENTIAL (PRIMARY) HYPERTENSION (6) Pacemaker Code(s): Z95.0 - PRESENCE OF CARDIAC PACEMAKER (7) Troponin I above reference range Assessment/Plan: -Cardiology consultation appreciated. -Patient anticoagulated with Lovenox 80mg subq BID -pressors to maintain map >60 Code(s): R74.8 - ABNORMAL LEVELS OF OTHER SERUM ENZYMES (8) Acute on chronic diastolic (congestive) heart failure Assessment/Plan: cardiology following Code(s): I50.33 - ACUTE ON CHRONIC DIASTOLIC (CONGESTIVE) HEART FAILURE (9) Hyperlipidemia Assessment/Plan: start statins when more stable. Code(s): E78.5 - HYPERLIPIDEMIA, UNSPECIFIED Qualifiers: Hyperlipidemia type: pure hypercholesterolemia Qualified Code(s): E78.00 - Pure hypercholesterolemia, unspecified; E78.0 - Pure hypercholesterolemia (10) Hypertensive cardiomyopathy Code(s): I11.9 - HYPERTENSIVE HEART DISEASE WITHOUT HEART FAILURE; I42.9 - CARDIOMYOPATHY, UNSPECIFIED Qualifiers: Heart failure presence: with heart failure Qualified Code(s): I11.0 - Hypertensive heart disease with heart failure; I43 - Cardiomyopathy in diseases classified elsewhere (11) Mitral valvular prolapse Code(s): I34.1 - NONRHEUMATIC MITRAL (VALVE) PROLAPSE (12) Diabetes Assessment/Plan: on novolog ss, levemir 5 Code(s): E11.9 - TYPE 2 DIABETES MELLITUS WITHOUT COMPLICATIONS (13) Prophylactic measure Assessment/Plan: fen on pressors started on jevity feeds via ngt on lovenox bid Code(s): Z29.9 - ENCOUNTER FOR PROPHYLACTIC MEASURES, UNSPECIFIED Visit type - Emergency Visit Emergency Visit: Yes ED Registration Date: 10/09/18 Care time: The patient presented to the Emergency Department on the above date and was hospitalized for further evaluation of their emergent condition. - New Patient This patient is new to me today: No - Critical Care Critical Care patient: Yes Total Critical Care Time (in minutes): 60 Critical Care Statement: The care of this patient involved high complexity decision making to prevent further life threatening deterioration of the patient 's condition and/or to evaluate & treat vital organ system(s) failure or risk of failure.
[2018-10-16] MEDS: NOREPINEPHRINE BITARTRATE 8,000 MCG in DEXTROSE 5%-WATER - 492 ML IV SCH (19:00)
[2018-10-16] MEDS: INSULIN (LEVEMIR) 100 UNITS/ML UNITS SQ SCH (22:48)
[2018-10-17] MEDS ORDERED: MEROPENEM 1 GM VIAL (RESTRICTED TO ID) IVPB ONE ×3 (01:46→17:56)
[2018-10-17] MEDS ORDERED: SODIUM CHLORIDE 100 ML IVPB ONE ×3 (01:46→17:56)
[2018-10-17] MEDS: MEROPENEM 1 GM in SODIUM CHLORIDE 100 ML IVPB SCH ×3 (02:34→18:07)
[2018-10-17] MEDS: HYDROCORTISONE SOD SUCCINATE 100 MG/2 ML VIAL IVPB SCH ×4 (05:52→23:15)
[2018-10-17] MEDS: INSULIN SLIDING SCALE (NOVOLOG) 1 VIAL SQ SCH ×4 (07:01→23:33)
--- NOTE | 2018-10-17 07:40 | PN ---
Progress Note (short form) - Note Progress Note: PULMONARY/CRITICAL CARE PROGRESS NOTE: SUBJECTIVE: -Pt seen and examined in the ICU -Awake and comfortable off sedation except PRN Fentanyl -Tolerated PSV 12/5 all day, but rapid shallow breathing on PSV 5 -Remains on pressors - NE 4 -Significant bleeding from old TLC (R IJ) site OBJECTIVE: Current Medications Acetaminophen (Ofirmev Injection -) 1,000 mg IVPB Q6H PRN PRN Reason: FEVER Cholecalciferol (Vitamin D3 -) 5,000 unit PO DAILY [facility] Last Admin: 10/16/18 10:45 Dose: 5,000 unit Enoxaparin Sodium (Lovenox -) 80 mg SQ BID [facility] Last Admin: 10/16/18 22:48 Dose: 80 mg Fentanyl (Sublimaze Injection -) 50 mcg IVPUSH Q2H PRN PRN Reason: PAIN LEVEL 4 - 6 Stop: 10/17/18 12:29 Last Admin: 10/16/18 20:36 Dose: 50 mcg Fentanyl (Sublimaze Injection -) 100 mcg IVPUSH Q2H PRN PRN Reason: PAIN LEVEL 7 - 10 Stop: 10/17/18 12:16 Fludrocortisone Acetate (Florinef -) 0.05 mg PO DAILY [facility] Last Admin: 10/16/18 10:44 Dose: 0.05 mg Furosemide (Lasix Injection -) 40 mg IVPUSH DAILY [facility] Last Admin: 10/16/18 10:44 Dose: 40 mg Hydrocortisone Sodium Succinate (Solu-Cortef -) 50 mg IVPB Q6H-IV [facility] Last Admin: 10/17/18 05:52 Dose: 50 mg Vancomycin HCl (Vancomycin (Pre-Docked)) 1,000 mg in 250 mls @ 166.667 mls/hr IVPB Q12H [facility]; Protocol Last Admin: 10/16/18 20:34 Dose: 166.667 mls/hr Meropenem 1 gm/ Sodium (Chloride) 100 mls @ 200 mls/hr IVPB Q8H-IV [facility] Last Admin: 10/17/18 02:34 Dose: 200 mls/hr Norepinephrine Bitartrate 8, (000 mcg/ Dextrose) 500 mls @ 18.75 mls/hr IV TITR [facility]; Protocol Last Admin: 10/16/18 19:00 Dose: 2 mcg/min, 7.5 mls/hr Insulin Aspart (Novolog Vial Sliding Scale -) 1 vial SQ Q6H [facility]; Protocol Last Admin: 10/17/18 07:01 Dose: 8 units Insulin Detemir (Levemir Vial) 5 units SQ HS [facility] Last Admin: 10/16/18 22:48 Dose: 5 units Lactobacillus Acidophilus (Bacid -) 1 tab PO DAILY [facility] Last Admin: 10/16/18 10:44 Dose: 1 tab Nystatin (Mycostatin Cream -) 1 applic TP BID [facility] Last Admin: 10/16/18 22:48 Dose: 1 applic Pantoprazole Sodium (Protonix Iv) 40 mg IVPUSH DAILY [facility] Last Admin: 10/16/18 10:45 Dose: 40 mg Tolterodine Tartrate (Detrol -) 2 mg PO DAILY [facility] Last Admin: 10/16/18 10:44 Dose: 2 mg Vital Signs Temp 99.2 F 10/17/18 06:00 Pulse 116 H 10/17/18 06:25 Resp 18 10/17/18 06:22 BP 118/93 10/17/18 06:00 Pulse Ox 100 10/17/18 06:25 Intake & Output 10/16/18 10/17/18 10/17/18 18:59 06:59 18:59 Intake Total 617 Output Total 600 Balance 17 Weight 84.232 kg Intake: IV 135 levophed 135 IVPB 482 Output: Urine 600 Barclay 600 Other: Voiding Method Indwelling Catheter Indwelling Catheter Bowel Movement No Weight Measurement Method Built in Bedscale Gen: intubated, awake, follows commands Heart: tachy, paced Lung: bibasular crackles Abd: obese, soft, nontender Ext: + edema, extremely weak CBC, BMP 10/16/18 05:35 10/16/18 05:35 ASSESSMENT AND PLAN: Acute Hypoxic Respiratory Failure Septic shock - improving h/o Bilateral Pulmonary Emboli Pulmonary Sarcoidosis Atrial Fibrillation s/p PPM Thrombocytopenia h/o Intracranial Hemorrhage Critical illness polyneuropathy and myopathy - continue antibiotics - reculture if febrile - maintain MAP >65 - continue empiric steroids, but would ideally like to wean when off pressors as this is worsening neuromuscular weakness - rate control - continue anticoagulation - replete lytes - enteral feeds - spontaneous breathing trial daily and trial of extubation - may need tracheostomy and prolonged vent weaning - DVT/GI prophylaxis - continue ICU monitoring critical care time 35 min Veto [place] Pulm/Critical Care [employer]
--- NOTE | 2018-10-17 08:16 | PN ---
Progress Note (short form) - Note Progress Note: Chief Complaint: Events noted, notes reviewed, patient remains intubated, sedated and on pressors, responds by opening eyes History of Present Illness: Seen and examined in the ICU. Events noted, notes reviewed, patient remains intubated, sedated and on pressors, responds by opening eyes Right sided neck hematoma/bruising persistent In summary known history of cerebellar bleed, mitral valve disease post mitral valve replacement-Bioprosthesis/history of mitral valve prolapse with moderate to severe mitral valve regurgitation, tricuspid valve repair, pulmonary sarcoidosis, systolic left ventricular dysfunction post prophylactic ICD implantation, AV block, paroxysmal atrial fibrillation and pulmonary thromboembolism on anticoagulation therapy Echocardiography performed March 29, 2018 revealed moderately reduced left ventricular systolic function with LVEF between 35-40%, Bioprosthetic mitral valve with mild mitral valve regurgitation,mild tricuspid valve regurgitation Echocardiography performed October 11, 2018 revealed left ventricular cavity dilatation with severe reduction in left ventricular ejection fraction estimated LVEF between 20-25% - Current Medication List Current Medications Acetaminophen (Ofirmev Injection -) 1,000 mg IVPB Q6H PRN PRN Reason: FEVER Cholecalciferol (Vitamin D3 -) 5,000 unit PO DAILY [facility] Last Admin: 10/16/18 10:45 Dose: 5,000 unit Enoxaparin Sodium (Lovenox -) 80 mg SQ BID [facility] Last Admin: 10/16/18 22:48 Dose: 80 mg Fentanyl (Sublimaze Injection -) 50 mcg IVPUSH Q2H PRN PRN Reason: PAIN LEVEL 4 - 6 Stop: 10/17/18 12:29 Last Admin: 10/16/18 20:36 Dose: 50 mcg Fentanyl (Sublimaze Injection -) 100 mcg IVPUSH Q2H PRN PRN Reason: PAIN LEVEL 7 - 10 Stop: 10/17/18 12:16 Fludrocortisone Acetate (Florinef -) 0.05 mg PO DAILY [facility] Last Admin: 10/16/18 10:44 Dose: 0.05 mg Furosemide (Lasix Injection -) 40 mg IVPUSH DAILY [facility] Last Admin: 10/16/18 10:44 Dose: 40 mg Hydrocortisone Sodium Succinate (Solu-Cortef -) 50 mg IVPB Q6H-IV [facility] Last Admin: 10/17/18 05:52 Dose: 50 mg Vancomycin HCl (Vancomycin (Pre-Docked)) 1,000 mg in 250 mls @ 166.667 mls/hr IVPB Q12H [facility]; Protocol Last Admin: 10/16/18 20:34 Dose: 166.667 mls/hr Meropenem 1 gm/ Sodium (Chloride) 100 mls @ 200 mls/hr IVPB Q8H-IV [facility] Last Admin: 10/17/18 02:34 Dose: 200 mls/hr Norepinephrine Bitartrate 8, (000 mcg/ Dextrose) 500 mls @ 18.75 mls/hr IV TITR [facility]; Protocol Last Admin: 10/16/18 19:00 Dose: 2 mcg/min, 7.5 mls/hr Insulin Aspart (Novolog Vial Sliding Scale -) 1 vial SQ Q6H [facility]; Protocol Last Admin: 10/17/18 07:01 Dose: 8 units Insulin Detemir (Levemir Vial) 5 units SQ HS [facility] Last Admin: 10/16/18 22:48 Dose: 5 units Lactobacillus Acidophilus (Bacid -) 1 tab PO DAILY [facility] Last Admin: 10/16/18 10:44 Dose: 1 tab Nystatin (Mycostatin Cream -) 1 applic TP BID [facility] Last Admin: 10/16/18 22:48 Dose: 1 applic Pantoprazole Sodium (Protonix Iv) 40 mg IVPUSH DAILY [facility] Last Admin: 10/16/18 10:45 Dose: 40 mg Tolterodine Tartrate (Detrol -) 2 mg PO DAILY [facility] Last Admin: 10/16/18 10:44 Dose: 2 mg Review of Systems - Review of Systems Unable to obtain - Objective Vital Signs: Last Vital Signs Temp Pulse Resp BP Pulse Ox 99.2 F 119 H 20 111/65 100 10/17/18 06:00 10/17/18 07:43 10/17/18 07:43 10/17/18 07:43 10/17/18 06:25 Intake & Output 10/14/18 10/15/18 10/16/18 10/17/18 23:59 23:59 23:59 23:59 Intake Total 1632 1440 970 617 Output Total 3700 1500 700 200 Balance -2067 270 417 Weight 187 lb 12.8 oz 183 lb 4 oz 184 lb 1 oz 185 lb 11.2 oz Constitutional: Intubated Neck: Supple Negative JVD No Bruit Cardiovascular: S1 S2 Regular Rate and Rhythm Respiratory: Scattered Rhonchi Bilaterally Gastrointestinal: Soft Benign Normal Bowel Sounds Ext: Edema Labs: CBC, BMP 10/16/18 05:35 10/16/18 05:35 Assessment/Plan ASSESSMENT: 1. Clinical presentation is consistent with septic shock remains on pressors- source of sepsis unclear/to be determined 2. 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 Systolic left ventricular dysfunction related to non-ischemic dilated cardiomyopathy, Class I-II [place] [employer] classification left ventricular failure- LVEF between 35-40% on echocardiography performed March 29, 2018/LVEF between 20-25% on echocardiography performed yesterday October 11, 2018 4. Post ICD implantation for syncope and complete heart block 5. Post tricuspid valve annuloplasty, for management of severe tricuspid valve regurgitation 6. 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 History of recent pulmonary thromboembolism on anticoagulation therapy 8. Chronic kidney disease- pre-renal azotemia 8. Hyponatremia and Hypokalemia- resolved 10. Anemia and thrombocytopenia PLAN: 1. Continue pressors and titrate dosage to off provided mean arterial pressure is equal or greater than 65 mmHg- and as outlined in the prior note if unable to wean off of pressors may consider right heart catheterization/[place]-Baldev catheter insertion to assist with volume management 2. If anemia and thrombocytopenia are persistent Lovenox therapy may need to be withheld 3. Continue to withhold Coreg and Altace therapies pending hemodynamics stabilization 4. Diuretic therapy to be utilized with caution and close monitoring of renal function and electrolytes 5. Antibiotics as per the primary team Condition critical Nusrat Cheung M.D.
[2018-10-17] MEDS ORDERED: PT OWN MED DRAWER 7, Y5N ONE (08:42)
[2018-10-17] MEDS: VANCOMYCIN 1 GRAM (PRE-DOCKED) 1,000 MG/250 ML BAG IVPB SCH ×2 (08:45→20:00)
[2018-10-17 08:49] LABS: BASO % 0.3 % (0-2.0); HEMATOCRIT 30.1 % (32.4-45.2); HEMOGLOBIN 9.5 GM/dL (10.7-15.3); MCH 26.7 pg (25.7-33.7); MCHC 31.7 g/dl (32.0-36.0); MEAN CELL VOLUME 84.4 fl (80-96); MONO % 3.1 % (3.8-10.2); NEUT % 95.6 % (42.8-82.8); PLATELET COUNT 118 K/MM3 (134-434); RBC 3.57 M/mm3 (3.60-5.2); RDW 18.1 % (11.6-15.6); WHITE BLOOD COUNT 19.2 K/mm3 (4.0-10.0)
[2018-10-17] MEDS: ENOXAPARIN NA (PORCINE) 80 MG/0.8 ML DISP.SYRIN SQ SCH (09:02)
[2018-10-17] MEDS: LACTOBACILLUS ACIDOPHILUS 1 TABLET PO SCH (09:02)
[2018-10-17] MEDS: FLUDROCORTISONE ACETATE 0.1 MG TABLET (FP) PO SCH (09:02)
[2018-10-17] MEDS: TOLTERODINE TARTRATE 2 MG TABLET PO SCH (09:02)
[2018-10-17] MEDS: FUROSEMIDE 40 MG/4 ML INJECTABLE VIAL IVPUSH SCH (09:02)
[2018-10-17 09:04] LABS: ALBUMIN 2.8 g/dl (3.4-5.0); BILIRUBIN,TOTAL 0.8 mg/dL (0.2-1); BLOOD UREA NITROGEN 38.9 mg/dL (7-18); CALCIUM 8.9 mg/dL (8.5-10.1); CREATININE 0.8 mg/dL (0.55-1.3); MAGNESIUM 2.6 mg/dL (1.8-2.4); POTASSIUM 4.1 mmol/L (3.5-5.1); TOT PROT 5.7 g/dl (6.4-8.2)
[2018-10-17] MEDS: PANTOPRAZOLE SODIUM 40 MG VIAL IVPUSH SCH (09:28)
[2018-10-17] MEDS: NYSTATIN 100,000 UNIT/GM TOPICAL CREAM 15 GM TUBE TP SCH ×2 (09:28→23:30)
[2018-10-17] MEDS: CHOLECALCIFEROL (VIT D3) 1,000 UNIT (25 MCG) TABLET PO SCH (09:28)
[2018-10-17 10:05] LABS: ANISOCYTOSIS 1+; MACROCYTOSIS 1+; OVALOCYTE 1+; PLATELET ESTIMATE DECREASED
--- NOTE | 2018-10-17 10:49 | PN ---
Progress Note, Physician History of Present Illness: patient still intubated events noted patient had bleeding from the iv site still requiring pressors wbc has jumped up again - Current Medication List Current Medications: Active Medications Acetaminophen (Ofirmev Injection -) 1,000 mg IVPB Q6H PRN PRN Reason: FEVER Cholecalciferol (Vitamin D3 -) 5,000 unit PO DAILY [facility] Last Admin: 10/17/18 09:28 Dose: 5,000 unit Enoxaparin Sodium (Lovenox -) 80 mg SQ BID [facility] Last Admin: 10/17/18 09:02 Dose: 80 mg Fentanyl (Sublimaze Injection -) 50 mcg IVPUSH Q2H PRN PRN Reason: PAIN LEVEL 4 - 6 Stop: 10/17/18 12:29 Last Admin: 10/16/18 20:36 Dose: 50 mcg Fentanyl (Sublimaze Injection -) 100 mcg IVPUSH Q2H PRN PRN Reason: PAIN LEVEL 7 - 10 Stop: 10/17/18 12:16 Fludrocortisone Acetate (Florinef -) 0.05 mg PO DAILY [facility] Last Admin: 10/17/18 09:02 Dose: 0.05 mg Hydrocortisone Sodium Succinate (Solu-Cortef -) 50 mg IVPB Q6H-IV [facility] Last Admin: 10/17/18 09:02 Dose: 50 mg Vancomycin HCl (Vancomycin (Pre-Docked)) 1,000 mg in 250 mls @ 166.667 mls/hr IVPB Q12H [facility]; Protocol Last Admin: 10/17/18 08:45 Dose: 166.667 mls/hr Meropenem 1 gm/ Sodium (Chloride) 100 mls @ 200 mls/hr IVPB Q8H-IV [facility] Last Admin: 10/17/18 09:28 Dose: 200 mls/hr Norepinephrine Bitartrate 8, (000 mcg/ Dextrose) 500 mls @ 18.75 mls/hr IV TITR [facility]; Protocol Last Admin: 10/16/18 19:00 Dose: 2 mcg/min, 7.5 mls/hr Insulin Aspart (Novolog Vial Sliding Scale -) 1 vial SQ Q6H [facility]; Protocol Last Admin: 10/17/18 07:01 Dose: 8 units Insulin Detemir (Levemir Vial) 5 units SQ HS [facility] Last Admin: 10/16/18 22:48 Dose: 5 units Lactobacillus Acidophilus (Bacid -) 1 tab PO DAILY [facility] Last Admin: 10/17/18 09:02 Dose: 1 tab Nystatin (Mycostatin Cream -) 1 applic TP BID [facility] Last Admin: 10/17/18 09:28 Dose: 1 applic Pantoprazole Sodium (Protonix Iv) 40 mg IVPUSH DAILY [facility] Last Admin: 10/17/18 09:28 Dose: 40 mg Tolterodine Tartrate (Detrol -) 2 mg PO DAILY [facility] Last Admin: 10/17/18 09:02 Dose: 2 mg - Objective Vital Signs: Vital Signs Temperature 99.2 F 10/17/18 06:00 Pulse Rate 100 H 10/17/18 08:35 Respiratory Rate 21 H 10/17/18 08:35 Blood Pressure 111/65 10/17/18 07:43 O2 Sat by Pulse Oximetry (%) 99 10/17/18 08:35 Constitutional: Yes: Other Cardiovascular: Yes: Tachycardia, S1, S2 Respiratory: Yes: Intubated, Mechanically Ventilated Gastrointestinal: Yes: Normal Bowel Sounds, Soft Musculoskeletal: Yes: WNL Extremities: Yes: Other Neurological: Yes: Alert, Other Labs: CBC, BMP 10/17/18 07:45 10/17/18 07:45 Assessment/Plan Problem List - Problems (1) GERD (gastroesophageal reflux disease) Code(s): K21.9 - GASTRO-ESOPHAGEAL REFLUX DISEASE WITHOUT ESOPHAGITIS (3) HTN (hypertension) Code(s): I10 - ESSENTIAL (PRIMARY) HYPERTENSION (4) Pacemaker Code(s): Z95.0 - PRESENCE OF CARDIAC PACEMAKER (5) Respiratory failure with hypoxia Code(s): J96.91 - RESPIRATORY FAILURE, UNSPECIFIED WITH HYPOXIA (6) Shock Code(s): R57.9 - SHOCK, UNSPECIFIED (7) Acute on chronic diastolic (congestive) heart failure Code(s): I50.33 - ACUTE ON CHRONIC DIASTOLIC (CONGESTIVE) HEART FAILURE (8) Hyperlipidemia Code(s): E78.5 - HYPERLIPIDEMIA, UNSPECIFIED Qualifiers: Hyperlipidemia type: pure hypercholesterolemia Qualified Code(s): E78.00 - Pure hypercholesterolemia, unspecified; E78.0 - Pure hypercholesterolemia (9) Pulmonary embolism Code(s): I26.99 - OTHER PULMONARY EMBOLISM WITHOUT ACUTE COR PULMONALE (11) Sarcoidosis Code(s): D86.9 - SARCOIDOSIS, UNSPECIFIED (12) Status post tricuspid valve repair Code(s): Z98.890 - OTHER SPECIFIED POSTPROCEDURAL STATES Assessment/Plan 62 y.o. female with PMH of b/l PE diagnosed 09/10/18 on Eliquis, systolic CHF, s/ p PPM, tricuspid repair and bioprosthetic MV repair, Sarcoidosis, hemorrhagic CVA, COPD, HTN, HLD, GERD, s/p cholecystectomy and LT hip surgery initially presented for c/o progressive SOB over the past 2 wks with weakness. Has been reportedly noncompliant with taking Lasix but taking Eliquis. Was transferred to the ICU for respiratory failure requiring intubation, hypotension, hyperthermia. Shock - likely Septic shock in addition to Cardiogenic Acute hypoxemic respiratory failure s/p intubation Hyperthermia B/L PE - r/o new embolism Sarcoidosis Hx of hemorrhagic CVA s/p AICD s/p tricuspid valve repair, bioprosthetic MV replacement Hx of UTI recently on antibiotics patient still intubated clear cut source still not present lactic acid still high plan continue current mgmt monitor wbc rest as per the team and icu cx report noted nutrition cc 40 min
--- NOTE | 2018-10-17 13:14 | PN ---
Progress Note, Physician History of Present Illness: Pt seen and examined at bedside. She is awake. She remains intubated. - Current Medication List Current Medications: Active Medications Acetaminophen (Ofirmev Injection -) 1,000 mg IVPB Q6H PRN PRN Reason: FEVER Cholecalciferol (Vitamin D3 -) 5,000 unit PO DAILY [facility] Last Admin: 10/17/18 09:28 Dose: 5,000 unit Fludrocortisone Acetate (Florinef -) 0.05 mg PO DAILY [facility] Last Admin: 10/17/18 09:02 Dose: 0.05 mg Hydrocortisone Sodium Succinate (Solu-Cortef -) 50 mg IVPB Q6H-IV [facility] Last Admin: 10/17/18 09:02 Dose: 50 mg Vancomycin HCl (Vancomycin (Pre-Docked)) 1,000 mg in 250 mls @ 166.667 mls/hr IVPB Q12H [facility]; Protocol Last Admin: 10/17/18 08:45 Dose: 166.667 mls/hr Meropenem 1 gm/ Sodium (Chloride) 100 mls @ 200 mls/hr IVPB Q8H-IV [facility] Last Admin: 10/17/18 09:28 Dose: 200 mls/hr Norepinephrine Bitartrate 8, (000 mcg/ Dextrose) 500 mls @ 18.75 mls/hr IV TITR [facility]; Protocol Last Admin: 10/16/18 19:00 Dose: 2 mcg/min, 7.5 mls/hr Insulin Aspart (Novolog Vial Sliding Scale -) 1 vial SQ Q6H [facility]; Protocol Last Admin: 10/17/18 12:08 Dose: 6 units Insulin Detemir (Levemir Vial) 5 units SQ HS [facility] Last Admin: 10/16/18 22:48 Dose: 5 units Lactobacillus Acidophilus (Bacid -) 1 tab PO DAILY [facility] Last Admin: 10/17/18 09:02 Dose: 1 tab Nystatin (Mycostatin Cream -) 1 applic TP BID [facility] Last Admin: 10/17/18 09:28 Dose: 1 applic Pantoprazole Sodium (Protonix Iv) 40 mg IVPUSH DAILY [facility] Last Admin: 10/17/18 09:28 Dose: 40 mg Tolterodine Tartrate (Detrol -) 2 mg PO DAILY [facility] Last Admin: 10/17/18 09:02 Dose: 2 mg - Objective Vital Signs: Vital Signs Temperature 99.2 F 10/17/18 06:00 Pulse Rate 110 H 10/17/18 12:05 Respiratory Rate 22 H 10/17/18 12:09 Blood Pressure 115/96 10/17/18 12:05 O2 Sat by Pulse Oximetry (%) 99 10/17/18 10:00 Constitutional: Yes: Calm Eyes: Yes: Conjunctiva Clear HENT: Yes: Atraumatic Cardiovascular: Yes: S1, S2 Respiratory: Yes: Intubated, Mechanically Ventilated Gastrointestinal: Yes: Soft, Abdomen, Obese Genitourinary: Yes: WNL Musculoskeletal: Yes: WNL Edema: Yes Edema: LLE: Trace, RLE: Trace Neurological: Yes: Oriented Labs: CBC, BMP 10/17/18 07:45 10/17/18 07:45 - ....Imaging Chest X-ray: Report Reviewed Problem List - Problems (1) DENISHA (acute kidney injury) Code(s): N17.9 - ACUTE KIDNEY FAILURE, UNSPECIFIED (2) Respiratory failure Code(s): J96.90 - RESPIRATORY FAILURE, UNSP, UNSP W HYPOXIA OR HYPERCAPNIA (3) CHF exacerbation Code(s): I50.9 - HEART FAILURE, UNSPECIFIED Qualifiers: Heart failure type: unspecified Qualified Code(s): I50.9 - Heart failure, unspecified Assessment/Plan Current Medications Generic Name Dose Route Start Last Admin Trade Name Freq PRN Reason Stop Dose Admin Acetaminophen 1,000 mg 10/14/18 16:14 Ofirmev Injection - IVPB Q6H PRN FEVER Cholecalciferol 5,000 unit 10/10/18 10:00 10/17/18 09:28 Vitamin D3 - PO 5,000 unit DAILY [facility] Administration Fludrocortisone Acetate 0.05 mg 10/10/18 11:00 10/17/18 09:02 Florinef - PO 0.05 mg DAILY [facility] Administration Hydrocortisone Sodium Succinate 50 mg 10/10/18 11:00 10/17/18 09:02 Solu-Cortef - IVPB 50 mg Q6H-IV [facility]ANG Administration Vancomycin HCl 1,000 mg in 250 mls @ 166.667 mls/hr 10/11/18 20:00 10/17/18 08:45 Vancomycin (Pre-Docked) IVPB 166.667 mls/hr Q12H [facility] Administration Protocol Meropenem 1 gm/ Sodium 100 mls @ 200 mls/hr 10/13/18 14:25 10/17/18 09:28 Chloride IVPB 200 mls/hr Q8H-IV [facility]ANG Administration Norepinephrine Bitartrate 8, 500 mls @ 18.75 mls/hr 10/13/18 14:32 10/16/18 19:00 000 mcg/ Dextrose IV 2 mcg/min TITR CHANG 7.5 mls/hr Administration Protocol 5 MCG/MIN Insulin Aspart 1 vial 10/12/18 16:30 10/17/18 12:08 Novolog Vial Sliding Scale - SQ 6 units Q6H [facility] Administration Protocol Insulin Detemir 5 units 10/13/18 22:00 10/16/18 22:48 Levemir Vial SQ 5 units HS [facility]ANG Administration Lactobacillus Acidophilus 1 tab 10/10/18 10:00 10/17/18 09:02 Bacid - PO 1 tab DAILY [facility] Administration Nystatin 1 applic 10/14/18 10:00 10/17/18 09:28 Mycostatin Cream - TP 1 applic BID [facility] Administration Pantoprazole Sodium 40 mg 10/11/18 12:15 10/17/18 09:28 Protonix Iv IVPUSH 40 mg DAILY [facility] Administration Tolterodine Tartrate 2 mg 10/10/18 10:00 10/17/18 09:02 Detrol - PO 2 mg DAILY [facility]ANG Administration Impression 1. DENISHA 2. resp failure 3. chf 4. hx PE 5. hx htn 6. pulm sarcoid 7. shock 8. a-fib 9. hyponatremia Plan - will need better glucose control - monitor sodium level - lasix prn - monitor volume status - vent support - monitor urine output and renal function
[2018-10-17] MEDS ORDERED: LACTATED RINGERS SOLUTION 1000 ML INFUS.BAG IV ONE (13:45)
[2018-10-17] MEDS: ALBUTEROL SO4 0.5 % INH SOLN 2.5 MG/0.5 ML VIAL.NEB. NEB PRN (14:30)
[2018-10-17] MEDS: ACETAMINOPHEN 1000 MG/100 ML VIAL (NON FORMULARY) IVPB PRN (14:46)
--- NOTE | 2018-10-17 17:40 | PN ---
Progress Note, Physician Chief Complaint: intubated/off sedatives, remains on pressors, being weaned off History of Present Illness: Patient is a 62 year old female with PMHx of NYHA III systolic CHF, sarcoidosis , HTN, diabetes, HLD presents to [facility] with 2 days of difficulty breathing with wheezing. Hospitalization complicated when patient was found to be in septic shock requiring pressors, intubation. She was also noted to be hyperthermic with rectal temp of 107F. She remains in the ICU for further management and remains intubated. - Current Medication List Current Medications: Active Medications Acetaminophen (Ofirmev Injection -) 1,000 mg IVPB Q6H PRN PRN Reason: FEVER Last Admin: 10/17/18 14:46 Dose: 1,000 mg Albuterol Sulfate (Ventolin 0.5% -) 1 amp NEB Q4H PRN PRN Reason: SHORT OF BREATH/WHEEZING Last Admin: 10/17/18 14:30 Dose: 1 amp Cholecalciferol (Vitamin D3 -) 5,000 unit PO DAILY [facility] Last Admin: 10/17/18 09:28 Dose: 5,000 unit Fludrocortisone Acetate (Florinef -) 0.05 mg PO DAILY [facility] Last Admin: 10/17/18 09:02 Dose: 0.05 mg Hydrocortisone Sodium Succinate (Solu-Cortef -) 50 mg IVPB Q6H-IV [facility] Last Admin: 10/17/18 14:46 Dose: 50 mg Vancomycin HCl (Vancomycin (Pre-Docked)) 1,000 mg in 250 mls @ 166.667 mls/hr IVPB Q12H [facility]; Protocol Last Admin: 10/17/18 08:45 Dose: 166.667 mls/hr Meropenem 1 gm/ Sodium (Chloride) 100 mls @ 200 mls/hr IVPB Q8H-IV [facility] Last Admin: 10/17/18 09:28 Dose: 200 mls/hr Norepinephrine Bitartrate 8, (000 mcg/ Dextrose) 500 mls @ 18.75 mls/hr IV TITR [facility]; Protocol Last Admin: 10/16/18 19:00 Dose: 2 mcg/min, 7.5 mls/hr Insulin Aspart (Novolog Vial Sliding Scale -) 1 vial SQ Q6H [facility]; Protocol Last Admin: 10/17/18 12:08 Dose: 6 units Insulin Detemir (Levemir Vial) 5 units SQ HS [facility] Last Admin: 10/16/18 22:48 Dose: 5 units Lactobacillus Acidophilus (Bacid -) 1 tab PO DAILY [facility] Last Admin: 10/17/18 09:02 Dose: 1 tab Nystatin (Mycostatin Cream -) 1 applic TP BID [facility] Last Admin: 10/17/18 09:28 Dose: 1 applic Pantoprazole Sodium (Protonix Iv) 40 mg IVPUSH DAILY [facility] Last Admin: 10/17/18 09:28 Dose: 40 mg Tolterodine Tartrate (Detrol -) 2 mg PO DAILY [facility] Last Admin: 10/17/18 09:02 Dose: 2 mg - Objective Vital Signs: Vital Signs Temperature 99.2 F 10/17/18 06:00 Pulse Rate 110 H 10/17/18 12:05 Respiratory Rate 23 H 10/17/18 16:31 Blood Pressure 115/96 10/17/18 12:05 O2 Sat by Pulse Oximetry (%) 99 10/17/18 10:00 Constitutional: Yes: Calm Eyes: Yes: WNL HENT: Yes: Atraumatic Neck: Yes: Supple Cardiovascular: Yes: Tachycardia Respiratory: Yes: Intubated Gastrointestinal: Yes: Abdomen, Obese Labs: CBC, BMP 10/17/18 07:45 10/17/18 07:45 Problem List - Problems (1) Septic shock Assessment/Plan: Shock - likely septic shock in addition to cardiogenic - improving. Remains intubated, awakens and follows commands off Propofol lactic acid remains elevated, repeat until normalizes on meropenem and Vanco ID following blood cultures pending Code(s): A41.9 - SEPSIS, UNSPECIFIED ORGANISM; R65.21 - SEVERE SEPSIS WITH SEPTIC SHOCK (2) Respiratory failure with hypoxia Assessment/Plan: remains intubated, sedated care per icu Code(s): J96.91 - RESPIRATORY FAILURE, UNSPECIFIED WITH HYPOXIA (3) DENISHA (acute kidney injury) Assessment/Plan: monitor labs daily renal following Code(s): N17.9 - ACUTE KIDNEY FAILURE, UNSPECIFIED (4) GERD (gastroesophageal reflux disease) Assessment/Plan: protonix iv push Code(s): K21.9 - GASTRO-ESOPHAGEAL REFLUX DISEASE WITHOUT ESOPHAGITIS (5) HTN (hypertension) Assessment/Plan: monitor bp. cardiology following cardiac meds on hold Code(s): I10 - ESSENTIAL (PRIMARY) HYPERTENSION (6) Pacemaker Code(s): Z95.0 - PRESENCE OF CARDIAC PACEMAKER (7) Troponin I above reference range Assessment/Plan: -Cardiology consultation appreciated. -Patient anticoagulated with Lovenox 80mg subq BID -pressors to maintain map >60 Code(s): R74.8 - ABNORMAL LEVELS OF OTHER SERUM ENZYMES (8) Acute on chronic diastolic (congestive) heart failure Assessment/Plan: cardiology following Code(s): I50.33 - ACUTE ON CHRONIC DIASTOLIC (CONGESTIVE) HEART FAILURE (9) Hyperlipidemia Assessment/Plan: start statins when more stable. Code(s): E78.5 - HYPERLIPIDEMIA, UNSPECIFIED Qualifiers: Hyperlipidemia type: pure hypercholesterolemia Qualified Code(s): E78.00 - Pure hypercholesterolemia, unspecified; E78.0 - Pure hypercholesterolemia (10) Hypertensive cardiomyopathy Code(s): I11.9 - HYPERTENSIVE HEART DISEASE WITHOUT HEART FAILURE; I42.9 - CARDIOMYOPATHY, UNSPECIFIED Qualifiers: Heart failure presence: with heart failure Qualified Code(s): I11.0 - Hypertensive heart disease with heart failure; I43 - Cardiomyopathy in diseases classified elsewhere (11) Mitral valvular prolapse Code(s): I34.1 - NONRHEUMATIC MITRAL (VALVE) PROLAPSE (12) Diabetes Assessment/Plan: on novolog ss, levemir 5 Code(s): E11.9 - TYPE 2 DIABETES MELLITUS WITHOUT COMPLICATIONS (13) Thrombocytopenia Assessment/Plan: improving on todays labs. Code(s): D69.6 - THROMBOCYTOPENIA, UNSPECIFIED (14) Prophylactic measure Assessment/Plan: fen on pressors started on jevity feeds via ngt on lovenox bid Code(s): Z29.9 - ENCOUNTER FOR PROPHYLACTIC MEASURES, UNSPECIFIED Visit type - Emergency Visit Emergency Visit: Yes ED Registration Date: 10/09/18 Care time: The patient presented to the Emergency Department on the above date and was hospitalized for further evaluation of their emergent condition. - New Patient This patient is new to me today: No - Critical Care Critical Care patient: Yes Total Critical Care Time (in minutes): 45 Critical Care Statement: The care of this patient involved high complexity decision making to prevent further life threatening deterioration of the patient 's condition and/or to evaluate & treat vital organ system(s) failure or risk of failure. - Discharge Referral Referred to [facility] No
[2018-10-17] MEDS ORDERED: INSULIN (LEVEMIR) 100 UNITS/ML UNITS SQ SCH (18:32)
[2018-10-17] MEDS: NOREPINEPHRINE BITARTRATE 8,000 MCG in DEXTROSE 5%-WATER - 492 ML IV SCH (19:00)
[2018-10-17] MEDS ORDERED: DEXMEDETOMIDINE HCL 200 MCG/2 ML IVPB ONE (22:45)
[2018-10-18] MEDS: DEXMEDETOMIDINE HCL 200 MCG in SODIUM CHLORIDE 48 ML IVPB SCH ×2 (00:23→23:44)
[2018-10-18] MEDS: MEROPENEM 1 GM in SODIUM CHLORIDE 100 ML IVPB SCH ×3 (01:00→17:10)
[2018-10-18] MEDS ORDERED: SODIUM CHLORIDE 100 ML IVPB ONE ×3 (01:05→17:09)
[2018-10-18] MEDS ORDERED: MEROPENEM 1 GM VIAL (RESTRICTED TO ID) IVPB ONE ×3 (01:05→17:08)
[2018-10-18] MEDS: HYDROCORTISONE SOD SUCCINATE 100 MG/2 ML VIAL IVPB SCH ×4 (02:11→21:01)
[2018-10-18] MEDS: INSULIN SLIDING SCALE (NOVOLOG) 1 VIAL SQ SCH ×4 (06:58→21:34)
[2018-10-18 08:27] LABS: BASO % 0.3 % (0-2.0); HEMATOCRIT 26.5 % (32.4-45.2); HEMOGLOBIN 8.5 GM/dL (10.7-15.3); LYMPH % 1.1 % (8-40); MCH 26.8 pg (25.7-33.7); MEAN CELL VOLUME 83.9 fl (80-96); MEAN PLT VOLUME 9.3 fl (7.5-11.1); MONO % 4.3 % (3.8-10.2); NEUT % 94.3 % (42.8-82.8); PLATELET COUNT 87 K/MM3 (134-434); RBC 3.16 M/mm3 (3.60-5.2); RDW 18.4 % (11.6-15.6); WHITE BLOOD COUNT 17.9 K/mm3 (4.0-10.0)
[2018-10-18 08:41] LABS: ALBUMIN 2.6 g/dl (3.4-5.0); BLOOD UREA NITROGEN 29.3 mg/dL (7-18); CALCIUM 8.5 mg/dL (8.5-10.1); CREATININE 0.5 mg/dL (0.55-1.3); MAGNESIUM 2.7 mg/dL (1.8-2.4); POTASSIUM 4.2 mmol/L (3.5-5.1); TOT PROT 5.2 g/dl (6.4-8.2)
[2018-10-18] MEDS: VANCOMYCIN 1 GRAM (PRE-DOCKED) 1,000 MG/250 ML BAG IVPB SCH (08:51)
[2018-10-18] MEDS: PANTOPRAZOLE SODIUM 40 MG VIAL IVPUSH SCH (09:09)
[2018-10-18] MEDS: CHOLECALCIFEROL (VIT D3) 1,000 UNIT (25 MCG) TABLET PO SCH (09:10)
[2018-10-18] MEDS: LACTOBACILLUS ACIDOPHILUS 1 TABLET PO SCH (09:10)
[2018-10-18] MEDS: TOLTERODINE TARTRATE 2 MG TABLET PO SCH (09:10)
[2018-10-18] MEDS: FLUDROCORTISONE ACETATE 0.1 MG TABLET (FP) PO SCH (09:11)
[2018-10-18] MEDS: NYSTATIN 100,000 UNIT/GM TOPICAL CREAM 15 GM TUBE TP SCH ×2 (09:19→21:33)
[2018-10-18 09:51] LABS: ANISOCYTOSIS 0; MACROCYTOSIS 0; OVALOCYTE 1+; PLATELET ESTIMATE DECREASED
--- NOTE | 2018-10-18 10:45 | PN ---
Progress Note, Physician History of Present Illness: patient still intubated awake and alert off of pressors - Current Medication List Current Medications: Active Medications Acetaminophen (Ofirmev Injection -) 1,000 mg IVPB Q6H PRN PRN Reason: FEVER Last Admin: 10/17/18 14:46 Dose: 1,000 mg Albuterol Sulfate (Ventolin 0.5% -) 1 amp NEB Q4H PRN PRN Reason: SHORT OF BREATH/WHEEZING Last Admin: 10/17/18 14:30 Dose: 1 amp Cholecalciferol (Vitamin D3 -) 5,000 unit PO DAILY [facility] Last Admin: 10/18/18 09:10 Dose: 5,000 unit Fludrocortisone Acetate (Florinef -) 0.05 mg PO DAILY [facility] Last Admin: 10/18/18 09:11 Dose: 0.05 mg Hydrocortisone Sodium Succinate (Solu-Cortef -) 50 mg IVPB Q6H-IV [facility] Last Admin: 10/18/18 09:09 Dose: 50 mg Vancomycin HCl (Vancomycin (Pre-Docked)) 1,000 mg in 250 mls @ 166.667 mls/hr IVPB Q12H [facility]; Protocol Last Admin: 10/18/18 08:51 Dose: 166.667 mls/hr Meropenem 1 gm/ Sodium (Chloride) 100 mls @ 200 mls/hr IVPB Q8H-IV [facility] Last Admin: 10/18/18 09:09 Dose: 200 mls/hr Norepinephrine Bitartrate 8, (000 mcg/ Dextrose) 500 mls @ 18.75 mls/hr IV TITR [facility]; Protocol Last Admin: 10/17/18 19:00 Dose: 3 mcg/min, 11.25 mls/hr Dexmedetomidine HCl 200 mcg/ (Sodium Chloride) 50 mls @ 4.21 mls/hr IVPB TITR [facility]; Protocol Last Admin: 10/18/18 00:23 Dose: 0.2 mcg/kg/hr, 4.21 mls/hr Insulin Aspart (Novolog Vial Sliding Scale -) 1 vial SQ Q6H [facility]; Protocol Last Admin: 10/18/18 06:58 Dose: 2 units Insulin Detemir (Levemir Vial) 10 units SQ HS [facility] Last Admin: 10/17/18 23:33 Dose: 10 unit Lactobacillus Acidophilus (Bacid -) 1 tab PO DAILY [facility] Last Admin: 10/18/18 09:10 Dose: 1 tab Nystatin (Mycostatin Cream -) 1 applic TP BID [facility] Last Admin: 10/18/18 09:19 Dose: 1 applic Pantoprazole Sodium (Protonix Iv) 40 mg IVPUSH DAILY [facility] Last Admin: 10/18/18 09:09 Dose: 40 mg Tolterodine Tartrate (Detrol -) 2 mg PO DAILY [facility] Last Admin: 10/18/18 09:10 Dose: 2 mg - Objective Vital Signs: Vital Signs Temperature 97.7 F 10/18/18 08:00 Pulse Rate 105 H 10/18/18 09:00 Respiratory Rate 20 10/18/18 09:00 Blood Pressure 95/73 10/18/18 09:00 O2 Sat by Pulse Oximetry (%) 100 10/18/18 09:00 Constitutional: Yes: No Distress, Calm Cardiovascular: Yes: S1, S2 Respiratory: Yes: Intubated, Mechanically Ventilated Gastrointestinal: Yes: Normal Bowel Sounds, Soft, Other (feeding tolerated) Musculoskeletal: Yes: WNL Extremities: Yes: Other Neurological: Yes: Alert, Oriented Psychiatric: Yes: Alert, Oriented Labs: CBC, BMP 10/18/18 07:45 10/18/18 07:45 Assessment/Plan Problem List - Problems (1) GERD (gastroesophageal reflux disease) Code(s): K21.9 - GASTRO-ESOPHAGEAL REFLUX DISEASE WITHOUT ESOPHAGITIS (3) HTN (hypertension) Code(s): I10 - ESSENTIAL (PRIMARY) HYPERTENSION (4) Pacemaker Code(s): Z95.0 - PRESENCE OF CARDIAC PACEMAKER (5) Respiratory failure with hypoxia Code(s): J96.91 - RESPIRATORY FAILURE, UNSPECIFIED WITH HYPOXIA (6) Shock Code(s): R57.9 - SHOCK, UNSPECIFIED (7) Acute on chronic diastolic (congestive) heart failure Code(s): I50.33 - ACUTE ON CHRONIC DIASTOLIC (CONGESTIVE) HEART FAILURE (8) Hyperlipidemia Code(s): E78.5 - HYPERLIPIDEMIA, UNSPECIFIED Qualifiers: Hyperlipidemia type: pure hypercholesterolemia Qualified Code(s): E78.00 - Pure hypercholesterolemia, unspecified; E78.0 - Pure hypercholesterolemia (9) Pulmonary embolism Code(s): I26.99 - OTHER PULMONARY EMBOLISM WITHOUT ACUTE COR PULMONALE (11) Sarcoidosis Code(s): D86.9 - SARCOIDOSIS, UNSPECIFIED (12) Status post tricuspid valve repair Code(s): Z98.890 - OTHER SPECIFIED POSTPROCEDURAL STATES Assessment/Plan 62 y.o. female with PMH of b/l PE diagnosed 09/10/18 on Eliquis, systolic CHF, s/ p PPM, tricuspid repair and bioprosthetic MV repair, Sarcoidosis, hemorrhagic CVA, COPD, HTN, HLD, GERD, s/p cholecystectomy and LT hip surgery initially presented for c/o progressive SOB over the past 2 wks with weakness. Has been reportedly noncompliant with taking Lasix but taking Eliquis. Was transferred to the ICU for respiratory failure requiring intubation, hypotension, hyperthermia. Shock - likely Septic shock in addition to Cardiogenic Acute hypoxemic respiratory failure s/p intubation Hyperthermia B/L PE - r/o new embolism Sarcoidosis Hx of hemorrhagic CVA s/p AICD s/p tricuspid valve repair, bioprosthetic MV replacement Hx of UTI recently on antibiotics patient still intubated clear cut source still not present lactic acid still high plan continue current mgmt wbc has decreased rest as per the team and icu cx report noted nutrition will d/w the icu team if wbc starts trending down will deescalate abx cc 40 min
--- NOTE | 2018-10-18 11:35 | PN ---
Progress Note, Physician History of Present Illness: Pt seen and examined at bedside. She remains in the ICU. She remain intubated. - Current Medication List Current Medications: Active Medications Acetaminophen (Ofirmev Injection -) 1,000 mg IVPB Q6H PRN PRN Reason: FEVER Last Admin: 10/17/18 14:46 Dose: 1,000 mg Albuterol Sulfate (Ventolin 0.5% -) 1 amp NEB Q4H PRN PRN Reason: SHORT OF BREATH/WHEEZING Last Admin: 10/17/18 14:30 Dose: 1 amp Cholecalciferol (Vitamin D3 -) 5,000 unit PO DAILY [facility] Last Admin: 10/18/18 09:10 Dose: 5,000 unit Fludrocortisone Acetate (Florinef -) 0.05 mg PO DAILY [facility] Last Admin: 10/18/18 09:11 Dose: 0.05 mg Hydrocortisone Sodium Succinate (Solu-Cortef -) 50 mg IVPB Q6H-IV [facility] Last Admin: 10/18/18 09:09 Dose: 50 mg Vancomycin HCl (Vancomycin (Pre-Docked)) 1,000 mg in 250 mls @ 166.667 mls/hr IVPB Q12H [facility]; Protocol Last Admin: 10/18/18 08:51 Dose: 166.667 mls/hr Meropenem 1 gm/ Sodium (Chloride) 100 mls @ 200 mls/hr IVPB Q8H-IV [facility] Last Admin: 10/18/18 09:09 Dose: 200 mls/hr Norepinephrine Bitartrate 8, (000 mcg/ Dextrose) 500 mls @ 18.75 mls/hr IV TITR [facility]; Protocol Last Admin: 10/17/18 19:00 Dose: 3 mcg/min, 11.25 mls/hr Dexmedetomidine HCl 200 mcg/ (Sodium Chloride) 50 mls @ 4.21 mls/hr IVPB TITR [facility]; Protocol Last Admin: 10/18/18 00:23 Dose: 0.2 mcg/kg/hr, 4.21 mls/hr Insulin Aspart (Novolog Vial Sliding Scale -) 1 vial SQ Q6H [facility]; Protocol Last Admin: 10/18/18 11:26 Dose: 4 units Insulin Detemir (Levemir Vial) 10 units SQ HS [facility] Last Admin: 10/17/18 23:33 Dose: 10 unit Lactobacillus Acidophilus (Bacid -) 1 tab PO DAILY [facility] Last Admin: 10/18/18 09:10 Dose: 1 tab Nystatin (Mycostatin Cream -) 1 applic TP BID [facility] Last Admin: 10/18/18 09:19 Dose: 1 applic Pantoprazole Sodium (Protonix Iv) 40 mg IVPUSH DAILY [facility] Last Admin: 10/18/18 09:09 Dose: 40 mg Tolterodine Tartrate (Detrol -) 2 mg PO DAILY [facility] Last Admin: 10/18/18 09:10 Dose: 2 mg - Objective Vital Signs: Vital Signs Temperature 97.7 F 10/18/18 08:00 Pulse Rate 105 H 10/18/18 09:00 Respiratory Rate 20 10/18/18 09:00 Blood Pressure 95/73 10/18/18 09:00 O2 Sat by Pulse Oximetry (%) 100 10/18/18 09:00 Constitutional: Yes: Calm Eyes: Yes: Conjunctiva Clear HENT: Yes: Atraumatic Cardiovascular: Yes: S1, S2 Respiratory: Yes: Intubated, Mechanically Ventilated Gastrointestinal: Yes: Normal Bowel Sounds, Soft Genitourinary: Yes: [place] Present Musculoskeletal: Yes: Muscle Weakness Edema: LLE: Trace, RLE: Trace Neurological: Yes: Other (awake) Labs: CBC, BMP 10/18/18 07:45 10/18/18 07:45 Problem List - Problems (1) DENISHA (acute kidney injury) Code(s): N17.9 - ACUTE KIDNEY FAILURE, UNSPECIFIED (2) Respiratory failure Code(s): J96.90 - RESPIRATORY FAILURE, UNSP, UNSP W HYPOXIA OR HYPERCAPNIA (3) CHF exacerbation Code(s): I50.9 - HEART FAILURE, UNSPECIFIED Qualifiers: Heart failure type: unspecified Qualified Code(s): I50.9 - Heart failure, unspecified Assessment/Plan Current Medications Generic Name Dose Route Start Last Admin Trade Name Freq PRN Reason Stop Dose Admin Acetaminophen 1,000 mg 10/14/18 16:14 10/17/18 14:46 Ofirmev Injection - IVPB 1,000 mg Q6H PRN Administration FEVER Albuterol Sulfate 1 amp 10/17/18 13:44 10/17/18 14:30 Ventolin 0.5% - NEB 1 amp Q4H PRN Administration SHORT OF BREATH/WHEEZING Cholecalciferol 5,000 unit 10/10/18 10:00 10/18/18 09:10 Vitamin D3 - PO 5,000 unit DAILY [facility] Administration Fludrocortisone Acetate 0.05 mg 10/10/18 11:00 10/18/18 09:11 Florinef - PO 0.05 mg DAILY [facility] Administration Hydrocortisone Sodium Succinate 50 mg 10/10/18 11:00 10/18/18 09:09 Solu-Cortef - IVPB 50 mg Q6H-IV [facility] Administration Vancomycin HCl 1,000 mg in 250 mls @ 166.667 mls/hr 10/11/18 20:00 10/18/18 08:51 Vancomycin (Pre-Docked) IVPB 166.667 mls/hr Q12H [facility] Administration Protocol Meropenem 1 gm/ Sodium 100 mls @ 200 mls/hr 10/13/18 14:25 10/18/18 09:09 Chloride IVPB 200 mls/hr Q8H-IV [facility] Administration Norepinephrine Bitartrate 8, 500 mls @ 18.75 mls/hr 10/13/18 14:32 10/17/18 19:00 000 mcg/ Dextrose IV 3 mcg/min TITR [facility] 11.25 mls/hr Administration Protocol 5 MCG/MIN Dexmedetomidine HCl 200 mcg/ 50 mls @ 4.21 mls/hr 10/17/18 23:30 10/18/18 00: 23 Sodium Chloride IVPB 0.2 mcg/kg/hr TITR [facility] 4.21 mls/hr Administration Protocol 0.2 MCG/KG/HR Insulin Aspart 1 vial 10/12/18 16:30 10/18/18 11:26 Novolog Vial Sliding Scale - SQ 4 units Q6H [facility] Administration Protocol Insulin Detemir 10 units 10/17/18 18:32 10/17/18 23:33 Levemir Vial SQ 10 unit HS [facility] Administration Lactobacillus Acidophilus 1 tab 10/10/18 10:00 10/18/18 09:10 Bacid - PO 1 tab DAILY [facility] Administration Nystatin 1 applic 10/14/18 10:00 10/18/18 09:19 Mycostatin Cream - TP 1 applic BID [facility] Administration Pantoprazole Sodium 40 mg 10/11/18 12:15 10/18/18 09:09 Protonix Iv IVPUSH 40 mg DAILY [facility] Administration Tolterodine Tartrate 2 mg 10/10/18 10:00 10/18/18 09:10 Detrol - PO 2 mg DAILY [facility] Administration Impression 1. DENISHA 2. resp failure 3. chf 4. hx PE 5. hx htn 6. pulm sarcoid 7. shock 8. a-fib 9. hyponatremia Plan - monitor lytes - lasix as needed - vent support - weaning per pulmonary - monitor bp and avoid hypotension
--- NOTE | 2018-10-18 11:58 | PN ---
Progress Note, Physician Chief Complaint: Events noted remains in ICU currently intubated History of Present Illness: Patient was seen and examined. Opens eyes with command. Mechanical ventilation. Chart was reviewed Pressor support - Current Medication List Current Medications: Active Medications Acetaminophen (Ofirmev Injection -) 1,000 mg IVPB Q6H PRN PRN Reason: FEVER Last Admin: 10/17/18 14:46 Dose: 1,000 mg Albuterol Sulfate (Ventolin 0.5% -) 1 amp NEB Q4H PRN PRN Reason: SHORT OF BREATH/WHEEZING Last Admin: 10/17/18 14:30 Dose: 1 amp Cholecalciferol (Vitamin D3 -) 5,000 unit PO DAILY [facility] Last Admin: 10/18/18 09:10 Dose: 5,000 unit Fludrocortisone Acetate (Florinef -) 0.05 mg PO DAILY [facility] Last Admin: 10/18/18 09:11 Dose: 0.05 mg Hydrocortisone Sodium Succinate (Solu-Cortef -) 50 mg IVPB Q6H-IV [facility] Last Admin: 10/18/18 09:09 Dose: 50 mg Vancomycin HCl (Vancomycin (Pre-Docked)) 1,000 mg in 250 mls @ 166.667 mls/hr IVPB Q12H [facility]; Protocol Last Admin: 10/18/18 08:51 Dose: 166.667 mls/hr Meropenem 1 gm/ Sodium (Chloride) 100 mls @ 200 mls/hr IVPB Q8H-IV [facility] Last Admin: 10/18/18 09:09 Dose: 200 mls/hr Norepinephrine Bitartrate 8, (000 mcg/ Dextrose) 500 mls @ 18.75 mls/hr IV TITR [facility]; Protocol Last Admin: 10/17/18 19:00 Dose: 3 mcg/min, 11.25 mls/hr Dexmedetomidine HCl 200 mcg/ (Sodium Chloride) 50 mls @ 4.21 mls/hr IVPB TITR [facility]; Protocol Last Admin: 10/18/18 00:23 Dose: 0.2 mcg/kg/hr, 4.21 mls/hr Insulin Aspart (Novolog Vial Sliding Scale -) 1 vial SQ Q6H [facility]; Protocol Last Admin: 10/18/18 11:26 Dose: 4 units Insulin Detemir (Levemir Vial) 10 units SQ HS [facility] Last Admin: 10/17/18 23:33 Dose: 10 unit Lactobacillus Acidophilus (Bacid -) 1 tab PO DAILY [facility] Last Admin: 10/18/18 09:10 Dose: 1 tab Nystatin (Mycostatin Cream -) 1 applic TP BID [facility] Last Admin: 10/18/18 09:19 Dose: 1 applic Pantoprazole Sodium (Protonix Iv) 40 mg IVPUSH DAILY [facility] Last Admin: 10/18/18 09:09 Dose: 40 mg Tolterodine Tartrate (Detrol -) 2 mg PO DAILY [facility] Last Admin: 10/18/18 09:10 Dose: 2 mg - Objective Vital Signs: Vital Signs Temperature 97.7 F 10/18/18 08:00 Pulse Rate 105 H 10/18/18 09:00 Respiratory Rate 20 10/18/18 09:00 Blood Pressure 95/73 10/18/18 09:00 O2 Sat by Pulse Oximetry (%) 100 10/18/18 09:00 Cardiovascular: Yes: Regular Rate and Rhythm, S1, S2 Respiratory: Yes: Mechanically Ventilated, Rhonchi Gastrointestinal: Yes: Normal Bowel Sounds, Soft, Abdomen, Obese. No: Tenderness Edema: Yes Edema: LLE: Trace, RLE: Trace Labs: CBC, BMP 10/18/18 07:45 10/18/18 07:45 Problem List - Problems (1) DENISHA (acute kidney injury) Code(s): N17.9 - ACUTE KIDNEY FAILURE, UNSPECIFIED (2) Diabetes Code(s): E11.9 - TYPE 2 DIABETES MELLITUS WITHOUT COMPLICATIONS (3) GERD (gastroesophageal reflux disease) Code(s): K21.9 - GASTRO-ESOPHAGEAL REFLUX DISEASE WITHOUT ESOPHAGITIS (5) HTN (hypertension) Code(s): I10 - ESSENTIAL (PRIMARY) HYPERTENSION Qualifiers: Hypertension type: essential hypertension Qualified Code(s): I10 - Essential (primary) hypertension (6) Respiratory failure with hypoxia Code(s): J96.91 - RESPIRATORY FAILURE, UNSPECIFIED WITH HYPOXIA (7) Septic shock Code(s): A41.9 - SEPSIS, UNSPECIFIED ORGANISM; R65.21 - SEVERE SEPSIS WITH SEPTIC SHOCK (8) Thrombocytopenia Code(s): D69.6 - THROMBOCYTOPENIA, UNSPECIFIED (9) Troponin I above reference range Code(s): R74.8 - ABNORMAL LEVELS OF OTHER SERUM ENZYMES (10) Acute on chronic diastolic (congestive) heart failure Code(s): I50.33 - ACUTE ON CHRONIC DIASTOLIC (CONGESTIVE) HEART FAILURE (11) CHF exacerbation Code(s): I50.9 - HEART FAILURE, UNSPECIFIED Qualifiers: Heart failure type: unspecified Qualified Code(s): I50.9 - Heart failure, unspecified (12) Hyperlipidemia Code(s): E78.5 - HYPERLIPIDEMIA, UNSPECIFIED Qualifiers: Hyperlipidemia type: pure hypercholesterolemia Qualified Code(s): E78.00 - Pure hypercholesterolemia, unspecified; E78.0 - Pure hypercholesterolemia (13) Hypertensive cardiomyopathy Code(s): I11.9 - HYPERTENSIVE HEART DISEASE WITHOUT HEART FAILURE; I42.9 - CARDIOMYOPATHY, UNSPECIFIED Qualifiers: Heart failure presence: with heart failure Qualified Code(s): I11.0 - Hypertensive heart disease with heart failure; I43 - Cardiomyopathy in diseases classified elsewhere (14) Mitral valvular prolapse Code(s): I34.1 - NONRHEUMATIC MITRAL (VALVE) PROLAPSE (15) Presence of single implantable cardioverter-defibrillator (ICD) Code(s): Z95.810 - PRESENCE OF AUTOMATIC (IMPLANTABLE) CARDIAC DEFIBRILLATOR (17) Sarcoidosis Code(s): D86.9 - SARCOIDOSIS, UNSPECIFIED (18) Severe mitral regurgitation Code(s): I34.0 - NONRHEUMATIC MITRAL (VALVE) INSUFFICIENCY (19) Subendocardial ischemia Code(s): I24.8 - OTHER FORMS OF ACUTE ISCHEMIC HEART DISEASE (20) Type 2 diabetes mellitus with foot ulcer Code(s): E11.621 - TYPE 2 DIABETES MELLITUS WITH FOOT ULCER; L97.509 - NON- PRESSURE CHRONIC ULCER OTH PRT UNSP FOOT W UNSP SEVERITY Assessment/Plan 1. Clinical presentation is consistent with septic shock remains on pressors, source of sepsis unclear and to be determined 2. 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 Systolic left ventricular dysfunction related to non-ischemic dilated cardiomyopathy, Class I-II [place] [employer] classification left ventricular failure- low LVEF 4. Post ICD implantation for syncope and complete heart block 5. Post tricuspid valve annuloplasty, for management of severe tricuspid valve regurgitation 6. History of pulmonary sarcoidosis without myocardial involvement 7. History of recent pulmonary thromboembolism on anticoagulation therapy 8. Chronic kidney disease - pre-renal azotemia 8. Hyponatremia and Hypokalemia 10. Anemia and thrombocytopenia PLAN: 1. Continue pressor support and keep mean arterial pressure equal or greater than 65 mmHg. Attempt to wean off pressor if tolerated. Dr. Cheung's input reviewed 2. If anemia and thrombocytopenia are persistent Lovenox therapy may need to be withheld 3. Continue to withhold Coreg and Altace therapies pending hemodynamic stabilization 4. Diuretic therapy to be utilized with caution and close monitoring of renal function and electrolytes 5. Antibiotics coverage as per ID Further plans are to follow. Patient was seen and examined for 40 min Trevor Loving MD
[2018-10-18] MEDS: ALBUTEROL SO4 0.5 % INH SOLN 2.5 MG/0.5 ML VIAL.NEB. NEB PRN ×3 (12:11→20:48)
--- NOTE | 2018-10-18 12:30 | PN ---
Physical Exam: SUBJECTIVE: Patient seen and examined at bedside. No acute events overnight. Patient weaned off levophed this AM. Easily arousable and interactive. patient was extubated after morning rounds and placed on ventimask. Patient complaining of right leg pain, denies cp, sob. OBJECTIVE: Vital Signs Period Temp Pulse Resp BP Sys/Zayas Pulse Ox Last 24 Hr 97.7 F-99.9 F 80-122 14-25 90-129/61-85 98-100 GEN: Well appearing, NAD, AAOx3 HEENT: NC/AT, EOMI. No facial asymmetry. Supple neck w/ FROM. CV: S1/S2, RRR, no m/r/g LUNG: CTAB, no wheezes, crackles, rales, rhonchi. GI: soft, ndnt, +BS, no guarding, no rebound. No masses. EXTREMITIES: cool, 1-2+ pitting edema most around ankles b/l. Right lower leg slightly red and warmer than left. SKIN: cold, dry PSYCH: normal mood and affect Laboratory Results - last 24 hr 10/17/18 10/17/18 10/18/18 18:04 23:19 06:47 WBC RBC Hgb Hct MCV MCH MCHC RDW Plt Count MPV Absolute Neuts (auto) Neutrophils % Neutrophils % (Manual) Band Neutrophils % Lymphocytes % Lymphocytes % (Manual) Monocytes % Monocytes % (Manual) Eosinophils % Eosinophils % (Manual) Basophils % Basophils % (Manual) Myelocytes % (Man) Promyelocytes % (Man) Blast Cells % (Manual) Nucleated RBC % Metamyelocytes Hypochromia Platelet Estimate Polychromasia Poikilocytosis Anisocytosis Microcytosis Macrocytosis Ovalocytes Stomatocytes Sodium Potassium Chloride Carbon Dioxide Anion Gap BUN Creatinine Est GFR (CKD-EPI)AfAm Est GFR (CKD-EPI)NonAf POC Glucometer 230 296 168 Random Glucose Calcium Magnesium Total Bilirubin AST ALT Alkaline Phosphatase Total Protein Albumin 10/18/18 10/18/18 10/18/18 07:45 07:45 11:13 WBC 17.9 H RBC 3.16 L Hgb 8.5 L Hct 26.5 L MCV 83.9 MCH 26.8 MCHC 32.0 RDW 18.4 H Plt Count 87 L D MPV 9.3 D Absolute Neuts (auto) 16.9 H Neutrophils % 94.3 H Neutrophils % (Manual) 90.0 H Band Neutrophils % 0.0 Lymphocytes % 1.1 L Lymphocytes % (Manual) 2.0 L Monocytes % 4.3 Monocytes % (Manual) 8 D Eosinophils % 0.0 Eosinophils % (Manual) 0.0 Basophils % 0.3 Basophils % (Manual) 0.0 Myelocytes % (Man) 0 Promyelocytes % (Man) 0 Blast Cells % (Manual) 0 Nucleated RBC % 1 H Metamyelocytes 0 Hypochromia 0 Platelet Estimate Decreased Polychromasia 1+ Poikilocytosis 1+ Anisocytosis 0 Microcytosis 0 Macrocytosis 0 Ovalocytes 1+ Stomatocytes 1+ Sodium 134 L Potassium 4.2 Chloride 87 L Carbon Dioxide 40 H Anion Gap 6 L BUN 29.3 H Creatinine 0.5 L Est GFR (CKD-EPI)AfAm 121.07 Est GFR (CKD-EPI)NonAf 104.46 POC Glucometer 206 Random Glucose 162 H Calcium 8.5 Magnesium 2.7 H Total Bilirubin 1.0 AST 22 ALT 32 Alkaline Phosphatase 76 Total Protein 5.2 L Albumin 2.6 L Active Medications Generic Name Dose Route Start Last Admin Trade Name Freq PRN Reason Stop Dose Admin Acetaminophen 1,000 mg 10/14/18 16:14 10/17/18 14:46 Ofirmev Injection - IVPB 1,000 mg Q6H PRN Administration FEVER Albuterol Sulfate 1 amp 10/17/18 13:44 10/18/18 12:11 Ventolin 0.5% - NEB 1 amp Q4H PRN Administration SHORT OF BREATH/WHEEZING Cholecalciferol 5,000 unit 10/10/18 10:00 10/18/18 09:10 Vitamin D3 - PO 5,000 unit DAILY [facility] Administration Fludrocortisone Acetate 0.05 mg 10/10/18 11:00 10/18/18 09:11 Florinef - PO 0.05 mg DAILY [facility] Administration Hydrocortisone Sodium Succinate 50 mg 10/10/18 11:00 10/18/18 09:09 Solu-Cortef - IVPB 50 mg Q6H-IV [facility] Administration Vancomycin HCl 1,000 mg in 250 mls @ 166.667 mls/hr 10/11/18 20:00 10/18/18 08:51 Vancomycin (Pre-Docked) IVPB 166.667 mls/hr Q12H [facility] Administration Protocol Meropenem 1 gm/ Sodium 100 mls @ 200 mls/hr 10/13/18 14:25 10/18/18 09:09 Chloride IVPB 200 mls/hr Q8H-IV [facility] Administration Norepinephrine Bitartrate 8, 500 mls @ 18.75 mls/hr 10/13/18 14:32 10/17/18 19:00 000 mcg/ Dextrose IV 3 mcg/min TITR [facility] 11.25 mls/hr Administration Protocol 5 MCG/MIN Dexmedetomidine HCl 200 mcg/ 50 mls @ 4.21 mls/hr 10/17/18 23:30 10/18/18 00: 23 Sodium Chloride IVPB 0.2 mcg/kg/hr TITR [facility] 4.21 mls/hr Administration Protocol 0.2 MCG/KG/HR Insulin Aspart 1 vial 10/12/18 16:30 10/18/18 11:26 Novolog Vial Sliding Scale - SQ 4 units Q6H [facility] Administration Protocol Insulin Detemir 10 units 10/17/18 18:32 10/17/18 23:33 Levemir Vial SQ 10 unit HS [facility] Administration Lactobacillus Acidophilus 1 tab 10/10/18 10:00 10/18/18 09:10 Bacid - PO 1 tab DAILY [facility] Administration Nystatin 1 applic 10/14/18 10:00 10/18/18 09:19 Mycostatin Cream - TP 1 applic BID [facility] Administration Pantoprazole Sodium 40 mg 10/11/18 12:15 10/18/18 09:09 Protonix Iv IVPUSH 40 mg DAILY [facility] Administration Tolterodine Tartrate 2 mg 10/10/18 10:00 10/18/18 09:10 Detrol - PO 2 mg DAILY [facility] Administration ASSESSMENT/PLAN: 63F pmh CHF, HLD, HTN, sacroidosis, DM, h/o PE on AC in ICU for acute on chronic diastolic heart failure and septic shock. No acute overnight events. Patient was weaned off pressors and successfully extubated this morning. Breathing well on Venti-mask. Neuro - s/p vasopressors, s/p extubation - monitor mental status - hold precedex CV - acute on chronic diastolic heart failure, septic shock - monitor BP, goal >65MAP - hold levophed - taper steroids - hold lasix Lung - s/p extubation - monitor saturation, respiratory effort, mental status - on venti-mask - c/w albuterol prn Endocrine - DM - Levemir 10U - AISS ID - septic shock - WBC increased to 19.2 from 17.6 - f/u CBC - Lactic Acid 3.4 - c/w Vancomycin - c/w Meropenem FENGI - s/p extubation - f/u Diet - right leg warmth, erythema, pain: will obtain duplex r/o DVT DVT PPX: SCD Visit type - Emergency Visit Emergency Visit: No - New Patient This patient is new to me today: Yes Date on this admission: 10/18/18 - Critical Care Critical Care patient: Yes Total Critical Care Time (in minutes): 30 Critical Care Statement: The care of this patient involved high complexity decision making to prevent further life threatening deterioration of the patient 's condition and/or to evaluate & treat vital organ system(s) failure or risk of failure.
--- NOTE | 2018-10-18 12:31 | PN ---
Teaching Attending Note Name of Resident: Claudy Amaya ATTENDING PHYSICIAN STATEMENT I saw and evaluated the patient. I reviewed the resident's note and discussed the case with the resident. I agree with the resident's findings and plan as documented. SUBJECTIVE: Pt seen and examined in the ICU. Intubated, awake. Tolerated CPAP/PS with good effort and RSBI, subsequently extubated during rounds. No fevers recorded. OBJECTIVE: Vital Signs Period Temp Pulse Resp BP Sys/Zayas Pulse Ox Last 24 Hr 97.7 F-99.9 F 80-122 14-25 90-129/61-85 98-100 Intake & Output 10/15/18 10/16/18 10/17/18 10/18/18 23:59 23:59 23:59 23:59 Intake Total 4003 302 9886 1084.5 Output Total 1500 700 900 300 Balance -60 270 2237 784.5 Weight 83.121 kg 83.489 kg 84.232 kg 84.958 kg Gen: extubated Heart: RRR Lung: decreased breath sounds at the bases Abd: soft, nontender Ext: + edema CBC, BMP 10/18/18 07:45 10/18/18 07:45 Active Medications Acetaminophen (Ofirmev Injection -) 1,000 mg IVPB Q6H PRN PRN Reason: FEVER Last Admin: 10/17/18 14:46 Dose: 1,000 mg Albuterol Sulfate (Ventolin 0.5% -) 1 amp NEB Q4H PRN PRN Reason: SHORT OF BREATH/WHEEZING Last Admin: 10/18/18 12:11 Dose: 1 amp Cholecalciferol (Vitamin D3 -) 5,000 unit PO DAILY [facility] Last Admin: 10/18/18 09:10 Dose: 5,000 unit Fludrocortisone Acetate (Florinef -) 0.05 mg PO DAILY [facility] Last Admin: 10/18/18 09:11 Dose: 0.05 mg Hydrocortisone Sodium Succinate (Solu-Cortef -) 50 mg IVPB Q6H-IV [facility] Last Admin: 10/18/18 09:09 Dose: 50 mg Vancomycin HCl (Vancomycin (Pre-Docked)) 1,000 mg in 250 mls @ 166.667 mls/hr IVPB Q12H [facility]; Protocol Last Admin: 10/18/18 08:51 Dose: 166.667 mls/hr Meropenem 1 gm/ Sodium (Chloride) 100 mls @ 200 mls/hr IVPB Q8H-IV [facility] Last Admin: 10/18/18 09:09 Dose: 200 mls/hr Norepinephrine Bitartrate 8, (000 mcg/ Dextrose) 500 mls @ 18.75 mls/hr IV TITR [facility]; Protocol Last Admin: 10/17/18 19:00 Dose: 3 mcg/min, 11.25 mls/hr Dexmedetomidine HCl 200 mcg/ (Sodium Chloride) 50 mls @ 4.21 mls/hr IVPB TITR [facility]; Protocol Last Admin: 10/18/18 00:23 Dose: 0.2 mcg/kg/hr, 4.21 mls/hr Insulin Aspart (Novolog Vial Sliding Scale -) 1 vial SQ Q6H [facility]; Protocol Last Admin: 10/18/18 11:26 Dose: 4 units Insulin Detemir (Levemir Vial) 10 units SQ HS [facility] Last Admin: 10/17/18 23:33 Dose: 10 unit Lactobacillus Acidophilus (Bacid -) 1 tab PO DAILY [facility] Last Admin: 10/18/18 09:10 Dose: 1 tab Nystatin (Mycostatin Cream -) 1 applic TP BID [facility] Last Admin: 10/18/18 09:19 Dose: 1 applic Pantoprazole Sodium (Protonix Iv) 40 mg IVPUSH DAILY [facility] Last Admin: 10/18/18 09:09 Dose: 40 mg Tolterodine Tartrate (Detrol -) 2 mg PO DAILY [facility] Last Admin: 10/18/18 09:10 Dose: 2 mg ASSESSMENT AND PLAN: Acute Hypoxic Respiratory Failure Shock of unclear source - Septic vs Cardiogenic h/o Bilateral Pulmonary Emboli Pulmonary Sarcoidosis Atrial Fibrillation s/p PPM Thrombocytopenia h/o Intracranial Hemorrhage - pt extubated - continue antibiotics per ID - reculture if febrile - off pressors, maintain MAP >65 - taper stress dose steroids - rate control - continue anticoagulation - replete lytes - enteral feeds - DVT/GI prophylaxis - continue ICU monitoring critical care time spent in reviewing chart, evaluating patient and formulating plan 35 min
[2018-10-18 14:26] VITALS: BMI 36.1
--- NOTE | 2018-10-18 17:01 | PN ---
Progress Note, Physician Chief Complaint: extubated today History of Present Illness: Patient is a 62 year old female with PMHx of NYHA III systolic CHF, sarcoidosis , HTN, diabetes, HLD presents to [facility] with 2 days of difficulty breathing with wheezing. Hospitalization complicated when patient was found to be in septic shock requiring pressors, intubation. She was also noted to be hyperthermic with rectal temp of 107F. She remains in the ICU for further management and remains intubated. - Current Medication List Current Medications: Active Medications Acetaminophen (Ofirmev Injection -) 1,000 mg IVPB Q6H PRN PRN Reason: FEVER Last Admin: 10/17/18 14:46 Dose: 1,000 mg Albuterol Sulfate (Ventolin 0.5% -) 1 amp NEB Q4H PRN PRN Reason: SHORT OF BREATH/WHEEZING Last Admin: 10/18/18 16:55 Dose: 1 amp Cholecalciferol (Vitamin D3 -) 5,000 unit PO DAILY [facility] Last Admin: 10/18/18 09:10 Dose: 5,000 unit Fludrocortisone Acetate (Florinef -) 0.05 mg PO DAILY [facility] Last Admin: 10/18/18 09:11 Dose: 0.05 mg Hydrocortisone Sodium Succinate (Solu-Cortef -) 50 mg IVPB Q6H-IV [facility] Last Admin: 10/18/18 15:21 Dose: 50 mg Vancomycin HCl (Vancomycin (Pre-Docked)) 1,000 mg in 250 mls @ 166.667 mls/hr IVPB Q12H [facility]; Protocol Last Admin: 10/18/18 08:51 Dose: 166.667 mls/hr Meropenem 1 gm/ Sodium (Chloride) 100 mls @ 200 mls/hr IVPB Q8H-IV [facility] Last Admin: 10/18/18 09:09 Dose: 200 mls/hr Norepinephrine Bitartrate 8, (000 mcg/ Dextrose) 500 mls @ 18.75 mls/hr IV TITR [facility]; Protocol Last Titration: 10/18/18 08:00 Dose: 0 mcg/min, 0 mls/hr Dexmedetomidine HCl 200 mcg/ (Sodium Chloride) 50 mls @ 4.21 mls/hr IVPB TITR [facility]; Protocol Last Admin: 10/18/18 00:23 Dose: 0.2 mcg/kg/hr, 4.21 mls/hr Insulin Aspart (Novolog Vial Sliding Scale -) 1 vial SQ Q6H [facility]; Protocol Last Admin: 10/18/18 11:26 Dose: 4 units Insulin Detemir (Levemir Vial) 10 units SQ HS [facility] Last Admin: 10/17/18 23:33 Dose: 10 unit Lactobacillus Acidophilus (Bacid -) 1 tab PO DAILY [facility] Last Admin: 10/18/18 09:10 Dose: 1 tab Nystatin (Mycostatin Cream -) 1 applic TP BID [facility] Last Admin: 10/18/18 09:19 Dose: 1 applic Pantoprazole Sodium (Protonix Iv) 40 mg IVPUSH DAILY [facility] Last Admin: 10/18/18 09:09 Dose: 40 mg Tolterodine Tartrate (Detrol -) 2 mg PO DAILY [facility] Last Admin: 10/18/18 09:10 Dose: 2 mg - Objective Vital Signs: Vital Signs Temperature 97.7 F 10/18/18 08:00 Pulse Rate 85 10/18/18 16:00 Respiratory Rate 20 10/18/18 16:00 Blood Pressure 132/109 H 10/18/18 16:00 O2 Sat by Pulse Oximetry (%) 100 10/18/18 12:10 Constitutional: Yes: Mild Distress Eyes: Yes: Conjunctiva Clear HENT: Yes: Atraumatic Neck: Yes: Supple Cardiovascular: Yes: Tachycardia Respiratory: Yes: On Nasal O2, Poor Air Entry, SOB, SOB on Exertion Gastrointestinal: Yes: Normal Bowel Sounds, Abdomen, Obese ...Rectal Exam: Yes: Deferred Genitourinary: Yes: WNL Edema: LLE: Trace, RLE: Trace Peripheral Pulses WNL: Yes Integumentary: Yes: WNL Neurological: Yes: Alert, Oriented Labs: CBC, BMP 10/18/18 07:45 10/18/18 07:45 Problem List - Problems (1) Septic shock Assessment/Plan: Shock - likely septic shock in addition to cardiogenic - resolved WBC decreased to 17.6 from 19.2 on stress dose steriods on meropenem and Vanco ID following blood cultures repeated and negative care per ICU Code(s): A41.9 - SEPSIS, UNSPECIFIED ORGANISM; R65.21 - SEVERE SEPSIS WITH SEPTIC SHOCK (2) Respiratory failure with hypoxia Assessment/Plan: extubated, on NRB care per icu Code(s): J96.91 - RESPIRATORY FAILURE, UNSPECIFIED WITH HYPOXIA (3) DENISHA (acute kidney injury) Assessment/Plan: monitor labs daily renal following Code(s): N17.9 - ACUTE KIDNEY FAILURE, UNSPECIFIED (4) GERD (gastroesophageal reflux disease) Assessment/Plan: protonix iv push Code(s): K21.9 - GASTRO-ESOPHAGEAL REFLUX DISEASE WITHOUT ESOPHAGITIS (5) HTN (hypertension) Assessment/Plan: monitor bp. cardiology following cardiac meds on hold Code(s): I10 - ESSENTIAL (PRIMARY) HYPERTENSION Qualifiers: Hypertension type: essential hypertension Qualified Code(s): I10 - Essential (primary) hypertension (6) Pacemaker Code(s): Z95.0 - PRESENCE OF CARDIAC PACEMAKER (7) Troponin I above reference range Assessment/Plan: -Cardiology consultation appreciated. -Patient anticoagulated with Lovenox 80mg subq BID -pressors to maintain map >60 Code(s): R74.8 - ABNORMAL LEVELS OF OTHER SERUM ENZYMES (8) Acute on chronic diastolic (congestive) heart failure Assessment/Plan: cardiology following Code(s): I50.33 - ACUTE ON CHRONIC DIASTOLIC (CONGESTIVE) HEART FAILURE (9) Hyperlipidemia Assessment/Plan: start statins when more stable. Code(s): E78.5 - HYPERLIPIDEMIA, UNSPECIFIED Qualifiers: Hyperlipidemia type: pure hypercholesterolemia Qualified Code(s): E78.00 - Pure hypercholesterolemia, unspecified; E78.0 - Pure hypercholesterolemia (10) Hypertensive cardiomyopathy Code(s): I11.9 - HYPERTENSIVE HEART DISEASE WITHOUT HEART FAILURE; I42.9 - CARDIOMYOPATHY, UNSPECIFIED Qualifiers: Heart failure presence: with heart failure Qualified Code(s): I11.0 - Hypertensive heart disease with heart failure; I43 - Cardiomyopathy in diseases classified elsewhere (11) Mitral valvular prolapse Code(s): I34.1 - NONRHEUMATIC MITRAL (VALVE) PROLAPSE (12) Diabetes Assessment/Plan: on novolog ss, levemir 5 Code(s): E11.9 - TYPE 2 DIABETES MELLITUS WITHOUT COMPLICATIONS (13) Thrombocytopenia Assessment/Plan: monitor daily Code(s): D69.6 - THROMBOCYTOPENIA, UNSPECIFIED (14) Prophylactic measure Assessment/Plan: fen on lovenox bid Code(s): Z29.9 - ENCOUNTER FOR PROPHYLACTIC MEASURES, UNSPECIFIED Visit type - Emergency Visit Emergency Visit: Yes ED Registration Date: 10/09/18 Care time: The patient presented to the Emergency Department on the above date and was hospitalized for further evaluation of their emergent condition. - New Patient This patient is new to me today: No - Critical Care Critical Care patient: Yes Total Critical Care Time (in minutes): 60 Critical Care Statement: The care of this patient involved high complexity decision making to prevent further life threatening deterioration of the patient 's condition and/or to evaluate & treat vital organ system(s) failure or risk of failure.
[2018-10-18] MEDS: NOREPINEPHRINE BITARTRATE 8,000 MCG in DEXTROSE 5%-WATER - 492 ML IV SCH (20:57)
[2018-10-18] MEDS: INSULIN (LEVEMIR) 100 UNITS/ML UNITS SQ SCH (21:27)
[2018-10-19] MEDS ORDERED: PT OWN MED DRAWER 7, Y5N ONE ×2 (02:10→09:15)
[2018-10-19] MEDS: MEROPENEM 1 GM in SODIUM CHLORIDE 100 ML IVPB SCH ×2 (02:25→09:31)
[2018-10-19] MEDS: HYDROCORTISONE SOD SUCCINATE 100 MG/2 ML VIAL IVPB SCH ×3 (03:48→22:24)
[2018-10-19] MEDS: INSULIN SLIDING SCALE (NOVOLOG) 1 VIAL SQ SCH ×4 (03:59→21:53)
[2018-10-19] MEDS: ACETAMINOPHEN 1000 MG/100 ML VIAL (NON FORMULARY) IVPB PRN (04:30)
[2018-10-19 06:28] LABS: BASO % 0.4 % (0-2.0); EOS % 0.2 % (0-4.5); HEMATOCRIT 28.7 % (32.4-45.2); HEMOGLOBIN 9.1 GM/dL (10.7-15.3); LYMPH % 1.3 % (8-40); MCH 26.5 pg (25.7-33.7); MCHC 31.6 g/dl (32.0-36.0); MEAN CELL VOLUME 83.7 fl (80-96); MEAN PLT VOLUME 9.4 fl (7.5-11.1); MONO % 3.7 % (3.8-10.2); NEUT % 94.4 % (42.8-82.8); PLATELET COUNT 98 K/MM3 (134-434); RBC 3.43 M/mm3 (3.60-5.2); RDW 18.8 % (11.6-15.6); WHITE BLOOD COUNT 18.2 K/mm3 (4.0-10.0)
[2018-10-19 06:53] LABS: ALBUMIN 2.8 g/dl (3.4-5.0); BLOOD UREA NITROGEN 29.5 mg/dL (7-18); CALCIUM 8.8 mg/dL (8.5-10.1); CREATININE 0.6 mg/dL (0.55-1.3); MAGNESIUM 2.9 mg/dL (1.8-2.4); POTASSIUM 4.8 mmol/L (3.5-5.1); TOT PROT 5.6 g/dl (6.4-8.2)
[2018-10-19] MEDS ORDERED: MAGNESIUM SULF 50% (8.12 MEQ/2 ML-1 GM VIAL) IVPB ONE (07:39)
[2018-10-19] MEDS ORDERED: FUROSEMIDE 40 MG/4 ML INJECTABLE VIAL IVPUSH ONE ×2 (09:07→16:00)
[2018-10-19] MEDS ORDERED: FUROSEMIDE 40 MG/4 ML INJECTABLE VIAL ONE (09:13)
[2018-10-19] MEDS ORDERED: SODIUM CHLORIDE 100 ML IVPB ONE (09:14)
[2018-10-19] MEDS ORDERED: MEROPENEM 1 GM VIAL (RESTRICTED TO ID) IVPB ONE (09:14)
[2018-10-19] MEDS: PANTOPRAZOLE SODIUM 40 MG VIAL IVPUSH SCH (09:32)
[2018-10-19] MEDS: LACTOBACILLUS ACIDOPHILUS 1 TABLET PO SCH (10:26)
[2018-10-19] MEDS: CHOLECALCIFEROL (VIT D3) 1,000 UNIT (25 MCG) TABLET PO SCH (10:26)
[2018-10-19] MEDS: TOLTERODINE TARTRATE 2 MG TABLET PO SCH (10:26)
[2018-10-19] MEDS: FLUDROCORTISONE ACETATE 0.1 MG TABLET (FP) PO SCH (10:26)
--- NOTE | 2018-10-19 10:33 | PN ---
Progress Note, Physician Chief Complaint: Events noted remains in ICU currently extubated on ventimask History of Present Illness: Patient was seen and examined. Extubated and awake Chart was reviewed Ventricular pacing with tachycardia - Current Medication List Current Medications: Active Medications Acetaminophen (Ofirmev Injection -) 1,000 mg IVPB Q6H PRN PRN Reason: FEVER Last Admin: 10/19/18 04:30 Dose: 1,000 mg Albuterol Sulfate (Ventolin 0.5% -) 1 amp NEB Q4H PRN PRN Reason: SHORT OF BREATH/WHEEZING Last Admin: 10/18/18 20:48 Dose: 1 amp Cholecalciferol (Vitamin D3 -) 5,000 unit PO DAILY [facility] Last Admin: 10/19/18 10:26 Dose: Not Given Fludrocortisone Acetate (Florinef -) 0.05 mg PO DAILY [facility] Last Admin: 10/19/18 10:26 Dose: Not Given Hydrocortisone Sodium Succinate (Solu-Cortef -) 50 mg IVPB Q6H-IV [facility] Last Admin: 10/19/18 09:30 Dose: 50 mg Meropenem 1 gm/ Sodium (Chloride) 100 mls @ 200 mls/hr IVPB Q8H-IV [facility] Last Admin: 10/19/18 09:31 Dose: 200 mls/hr Norepinephrine Bitartrate 8, (000 mcg/ Dextrose) 500 mls @ 18.75 mls/hr IV TITR [facility]; Protocol Last Admin: 10/18/18 20:57 Dose: Not Given Dexmedetomidine HCl 200 mcg/ (Sodium Chloride) 50 mls @ 4.21 mls/hr IVPB TITR [facility]; Protocol Last Admin: 10/18/18 23:44 Dose: Not Given Insulin Aspart (Novolog Vial Sliding Scale -) 1 vial SQ ACHS [facility]; Protocol Insulin Detemir (Levemir Vial) 15 units SQ HS [facility] Last Admin: 10/18/18 21:27 Dose: 15 units Lactobacillus Acidophilus (Bacid -) 1 tab PO DAILY [facility] Last Admin: 10/19/18 10:26 Dose: Not Given Nystatin (Mycostatin Cream -) 1 applic TP BID [facility] Last Admin: 10/18/18 21:33 Dose: 1 applic Pantoprazole Sodium (Protonix Iv) 40 mg IVPUSH DAILY [facility] Last Admin: 10/19/18 09:32 Dose: 40 mg Tolterodine Tartrate (Detrol -) 2 mg PO DAILY [facility] Last Admin: 10/19/18 10:26 Dose: Not Given - Objective Vital Signs: Vital Signs Temperature 100.3 F H 10/19/18 09:00 Pulse Rate 85 10/19/18 09:00 Respiratory Rate 29 H 10/19/18 09:00 Blood Pressure 120/81 10/19/18 09:00 O2 Sat by Pulse Oximetry (%) 98 10/19/18 10:22 Neck: Yes: Supple Cardiovascular: Yes: Regular Rate and Rhythm, Tachycardia, S1, S2 Respiratory: Yes: Diminished Gastrointestinal: Yes: Normal Bowel Sounds, Soft, Abdomen, Obese. No: Tenderness Edema: No Labs: CBC, BMP 10/19/18 05:55 10/19/18 05:55 Problem List - Problems (1) DENISHA (acute kidney injury) Code(s): N17.9 - ACUTE KIDNEY FAILURE, UNSPECIFIED (2) Diabetes Code(s): E11.9 - TYPE 2 DIABETES MELLITUS WITHOUT COMPLICATIONS (3) GERD (gastroesophageal reflux disease) Code(s): K21.9 - GASTRO-ESOPHAGEAL REFLUX DISEASE WITHOUT ESOPHAGITIS (5) HTN (hypertension) Code(s): I10 - ESSENTIAL (PRIMARY) HYPERTENSION Qualifiers: Hypertension type: essential hypertension Qualified Code(s): I10 - Essential (primary) hypertension (6) Respiratory failure with hypoxia Code(s): J96.91 - RESPIRATORY FAILURE, UNSPECIFIED WITH HYPOXIA (7) Septic shock Code(s): A41.9 - SEPSIS, UNSPECIFIED ORGANISM; R65.21 - SEVERE SEPSIS WITH SEPTIC SHOCK (8) Thrombocytopenia Code(s): D69.6 - THROMBOCYTOPENIA, UNSPECIFIED (9) Troponin I above reference range Code(s): R74.8 - ABNORMAL LEVELS OF OTHER SERUM ENZYMES (10) Acute on chronic diastolic (congestive) heart failure Code(s): I50.33 - ACUTE ON CHRONIC DIASTOLIC (CONGESTIVE) HEART FAILURE (11) CHF exacerbation Code(s): I50.9 - HEART FAILURE, UNSPECIFIED Qualifiers: Heart failure type: unspecified Qualified Code(s): I50.9 - Heart failure, unspecified (12) Hyperlipidemia Code(s): E78.5 - HYPERLIPIDEMIA, UNSPECIFIED Qualifiers: Hyperlipidemia type: pure hypercholesterolemia Qualified Code(s): E78.00 - Pure hypercholesterolemia, unspecified; E78.0 - Pure hypercholesterolemia (13) Hypertensive cardiomyopathy Code(s): I11.9 - HYPERTENSIVE HEART DISEASE WITHOUT HEART FAILURE; I42.9 - CARDIOMYOPATHY, UNSPECIFIED Qualifiers: Heart failure presence: with heart failure Qualified Code(s): I11.0 - Hypertensive heart disease with heart failure; I43 - Cardiomyopathy in diseases classified elsewhere (14) Mitral valvular prolapse Code(s): I34.1 - NONRHEUMATIC MITRAL (VALVE) PROLAPSE (15) Presence of single implantable cardioverter-defibrillator (ICD) Code(s): Z95.810 - PRESENCE OF AUTOMATIC (IMPLANTABLE) CARDIAC DEFIBRILLATOR (17) Sarcoidosis Code(s): D86.9 - SARCOIDOSIS, UNSPECIFIED (18) Severe mitral regurgitation Code(s): I34.0 - NONRHEUMATIC MITRAL (VALVE) INSUFFICIENCY (19) Subendocardial ischemia Code(s): I24.8 - OTHER FORMS OF ACUTE ISCHEMIC HEART DISEASE (20) Type 2 diabetes mellitus with foot ulcer Code(s): E11.621 - TYPE 2 DIABETES MELLITUS WITH FOOT ULCER; L97.509 - NON- PRESSURE CHRONIC ULCER OTH PRT UNSP FOOT W UNSP SEVERITY Assessment/Plan 1. Clinical presentation is consistent with septic shock remains now off pressors, source of sepsis unclear and to be determined 2. 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 Systolic left ventricular dysfunction related to non-ischemic dilated cardiomyopathy, Class I-II [place] [employer] classification left ventricular failure- low LVEF 4. Post ICD implantation for syncope and complete heart block 5. Post tricuspid valve annuloplasty, for management of severe tricuspid valve regurgitation 6. History of pulmonary sarcoidosis without myocardial involvement 7. History of recent pulmonary thromboembolism on anticoagulation therapy 8. Chronic kidney disease - pre-renal azotemia 8. Hyponatremia and Hypokalemia 10. Anemia and thrombocytopenia PLAN: 1. Off pressor support. Monitor MAP 2. If anemia and thrombocytopenia are persistent Lovenox therapy may need to be withheld 3. Consider restarting Coreg and Altace as tolerated 4. Diuretic therapy to be utilized with caution and close monitoring of renal function and electrolytes 5. Antibiotics coverage as per ID 6. If patient continues to be febrile with elevated WBC, may need further evaluation including ALETHEA to assess prosthetic heart valve. 7. Correct NA and monitor K Further plans are to follow. Patient was seen and examined for 40 min Trevor oLving MD
[2018-10-19] MEDS ORDERED: METOPROLOL TARTRATE 5 MG/5 ML VIAL IVPUSH PRN (10:42)
[2018-10-19 11:13] LABS: ANISOCYTOSIS 0; MACROCYTOSIS 0; OVALOCYTE 1+; PLATELET ESTIMATE DECREASED
--- NOTE | 2018-10-19 11:19 | PN ---
Teaching Attending Note Name of Resident: Claudy Amaya ATTENDING PHYSICIAN STATEMENT I saw and evaluated the patient. I reviewed the resident's note and discussed the case with the resident. I agree with the resident's findings and plan as documented. SUBJECTIVE: Pt seen and examined in the ICU. Remains extubated but with increased work of breathing. Remains off pressors. OBJECTIVE: Vital Signs Period Temp Pulse Resp BP Sys/Zayas Pulse Ox Last 24 Hr 98.6 F-100.3 F 66-122 18-29 93-156/53-112 98-100 Intake & Output 10/16/18 10/17/18 10/18/18 10/19/18 23:59 23:59 23:59 23:59 Intake Total 970 3137 1576.5 200 Output Total 700 900 650 200 Balance 270 2237 926.5 0 Weight 83.489 kg 84.232 kg 84.958 kg 84.425 kg Gen: tachypneic on ventimask Heart: RRR Lung: decreased breath sounds at the bases Abd: soft, nontender Ext: + edema CBC, BMP 10/19/18 05:55 10/19/18 05:55 Active Medications Acetaminophen (Ofirmev Injection -) 1,000 mg IVPB Q6H PRN PRN Reason: FEVER Last Admin: 10/19/18 04:30 Dose: 1,000 mg Albuterol Sulfate (Ventolin 0.5% -) 1 amp NEB Q4H PRN PRN Reason: SHORT OF BREATH/WHEEZING Last Admin: 10/18/18 20:48 Dose: 1 amp Cholecalciferol (Vitamin D3 -) 5,000 unit PO DAILY [facility] Last Admin: 10/19/18 10:26 Dose: Not Given Enoxaparin Sodium (Lovenox -) 80 mg SQ BID [facility] Fludrocortisone Acetate (Florinef -) 0.05 mg PO DAILY [facility] Last Admin: 10/19/18 10:26 Dose: Not Given Furosemide (Lasix Injection -) 40 mg IVPUSH ONCE ONE Stop: 10/19/18 16:01 Hydrocortisone Sodium Succinate (Solu-Cortef -) 50 mg IVPB BID [facility] Meropenem 1 gm/ Sodium (Chloride) 100 mls @ 200 mls/hr IVPB Q8H-IV [facility] Last Admin: 10/19/18 09:31 Dose: 200 mls/hr Norepinephrine Bitartrate 8, (000 mcg/ Dextrose) 500 mls @ 18.75 mls/hr IV TITR [facility]; Protocol Last Admin: 10/18/18 20:57 Dose: Not Given Dexmedetomidine HCl 200 mcg/ (Sodium Chloride) 50 mls @ 4.21 mls/hr IVPB TITR [facility]; Protocol Last Admin: 10/18/18 23:44 Dose: Not Given Insulin Aspart (Novolog Vial Sliding Scale -) 1 vial SQ ACHS [facility]; Protocol Insulin Detemir (Levemir Vial) 15 units SQ HS [facility] Last Admin: 10/18/18 21:27 Dose: 15 units Lactobacillus Acidophilus (Bacid -) 1 tab PO DAILY [facility] Last Admin: 10/19/18 10:26 Dose: Not Given Metoprolol Tartrate (Lopressor Injection -) 5 mg IVPUSH Q6H PRN PRN Reason: HYPERTENSION Nystatin (Mycostatin Cream -) 1 applic TP BID [facility] Last Admin: 10/18/18 21:33 Dose: 1 applic Pantoprazole Sodium (Protonix Iv) 40 mg IVPUSH DAILY [facility] Last Admin: 10/19/18 09:32 Dose: 40 mg Tolterodine Tartrate (Detrol -) 2 mg PO DAILY [facility] Last Admin: 10/19/18 10:26 Dose: Not Given ASSESSMENT AND PLAN: Acute Hypoxic Respiratory Failure Shock of unclear source - Septic vs Cardiogenic h/o Bilateral Pulmonary Emboli Pulmonary Sarcoidosis Atrial Fibrillation s/p PPM Thrombocytopenia h/o Intracranial Hemorrhage - place pt on HFOT - check ABG if breathing remains labored - continue antibiotics per ID - reculture if febrile - off pressors, maintain MAP >65 - taper off stress dose steroids - rate control - continue anticoagulation - lasix BID today - replete lytes - enteral feeds - DVT/GI prophylaxis - continue ICU monitoring for tenuous respiratory status critical care time spent in reviewing chart, evaluating patient and formulating plan 35 min
[2018-10-19] MEDS: NYSTATIN 100,000 UNIT/GM TOPICAL CREAM 15 GM TUBE TP SCH ×2 (11:41→22:24)
--- NOTE | 2018-10-19 12:12 | CONSULT ---
Admitting History and Physical - Primary Care Physician PCP: Abe Lala - Admission History of Present Illness: Per EMR- 62 y.o. female with PMH of b/l PE diagnosed 09/10/18 on Eliquis, systolic CHF, s/ p PPM, tricuspid repair and bioprosthetic MV repair, Sarcoidosis, hemorrhagic CVA, COPD, HTN, HLD, GERD, s/p cholecystectomy and LT hip surgery initially presented for c/o progressive SOB over the past 2 wks with weakness. Has been reportedly noncompliant with taking Lasix but taking Eliquis. Was transferred to the ICU for respiratory failure requiring intubation 10/09, hypotension, hyperthermia, chronic diastolic heart failure and septic shock. Extubated yesterday. This is my first consult with this pt. 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: CVA (hemmorhagic) Cardiovascular: Yes: CHF, HTN Pulmonary: Yes: COPD, Other (Sarcoid) Gastrointestinal: Yes: GERD ...: No - Past Surgical History Past Surgical History: Yes: Cholecystectomy, Permanent Pacemaker, Valve Replacement (MVR, TV repair) Additional Past Surgical History: L hip surgery - Advance Directives Advance Directives: Yes: Health Care Proxy - Smoking History Smoking history: Former smoker Have you smoked in the past 12 months: No Aproximately how many cigarettes per day: 0 If you are a former smoker, when did you quit?: 36 YRS AGO - Alcohol/Substance Use Hx Alcohol Use: No - Social History 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[facility]) History of Recent Travel: No History - Admission Reason For Visit: ACUTE ON CHRONIC CONGESTIVE HEART FAILURE - Diagnostics X-ray: Report Reviewed CT Scan: Report Reviewed - General Mental Status: Awake and Alert, Able to Follow Commands Attention: Intact Ability to Follow Directions: Good - Hearing Hearing: Impaired Speech Evaluation - Communication Primary Language: [place] Oral Expression Ability: Yes: Non-Vocal (Aphonic s/p extubation yesterday) - Speech Production Able to Make Needs Known: Yes: Severely Impaired Intelligibility: Yes: Severely Impaired - Speech Characteristics Voice Loudness: Hypophonia Voice Phonatory-based Quality: Yes: Weak (Aphonia) Rate of Speech: Too Fast - Language/Auditory Comprehension Follows: Yes: 1 Stage Simple Commands Observation: Able to respond to yes/no queries: Yes, Yes/No Confusion: No, Comprehends Conversational Speech: Yes - Language/Verbal Expression Functional Communication Status: Yes: Severely Impaired - Swallow Evaluation/Bedside Assessment Current Nutritional Intake: NPO Oral Secretions: Yes: WFL Dentition: Yes: Edentulous (lower), Dental Appliance Upper Against Resistance Opening: Weak Against Resistance Closing: Weak Pucker Lips: Weak Smile: Weak Lingual Movement: Symmetric, Reduced Protrusion Lingual Movement Strgth Against Opposition: Reduced Lingual Movement Characteristics: Normal Laryngeal Elevation: Impaired Laryngeal Movement: Reduced Excursion, Labored,delay initiation, Reduced Velocity, Other (weak, limited movement) Odynophagia: Pharyngeal Recommendations - Speech Evaluation, Impression/Plan Impression: Aphonia. Extubated yesterday. Very weak swallow, not functional. PO trial not attempted due to high risk of aspiration. Speech production poorly intelligible, rapid articulation with limited articulatory excursion. Letter board used with frequent errors in propositional communication. Simple word board constructed for easier communication/function. - Dysphagia Impressions/Plan Swallowing Skills: Impaired Dysphagia Impressions: Profound Impairment, Suspect Aspiration Recommendations: Other (To reevaluate as pt improves.) - Recommendations Diet Consistency: NPO, Other (NPO including meds) Liquids: NPO
--- NOTE | 2018-10-19 12:19 | PN ---
Physical Exam: SUBJECTIVE: Patient seen and examined at bedside. Patient was extubated yesterday; on venti-mask w/ labored breathing, borderline temperature, and tachycardia. No complaints of chest pain, abdominal pain. OBJECTIVE: Vital Signs Period Temp Pulse Resp BP Sys/Zayas Pulse Ox Last 24 Hr 97.6 F-100.3 F 66-122 18-29 93-156/53-112 98-100 GEN: Well appearing, NAD, comfortable. AAOx3 HEENT: NC/AT, EOMI, No facial asymmetry. dry mucous membranes. weak/quiet voice. Supple neck w/ FROM. CV: S1/S2, RRR, no m/r/g LUNG: labored breathing on venti-mask; coarse breath sounds b/l GI: soft, ndnt, +BS, no guarding, no rebound. No masses. EXTREMITIES: 1+ edema RLE; 2+ edema LLE, both pitting. SKIN: warm, dry, normal turgor PSYCH: normal mood and affect NEURO: unable to assess gait Laboratory Results - last 24 hr 10/18/18 10/18/18 10/19/18 17:05 21:25 03:56 WBC RBC Hgb Hct MCV MCH MCHC RDW Plt Count MPV Absolute Neuts (auto) Neutrophils % Neutrophils % (Manual) Band Neutrophils % Lymphocytes % Lymphocytes % (Manual) Monocytes % Monocytes % (Manual) Eosinophils % Eosinophils % (Manual) Basophils % Basophils % (Manual) Myelocytes % (Man) Promyelocytes % (Man) Blast Cells % (Manual) Nucleated RBC % Metamyelocytes Hypochromia Platelet Estimate Polychromasia Poikilocytosis Anisocytosis Microcytosis Macrocytosis Ovalocytes Stomatocytes Sodium Potassium Chloride Carbon Dioxide Anion Gap BUN Creatinine Est GFR (CKD-EPI)AfAm Est GFR (CKD-EPI)NonAf POC Glucometer 115 152 129 Random Glucose Calcium Magnesium Total Bilirubin AST ALT Alkaline Phosphatase Total Protein Albumin 10/19/18 10/19/18 10/19/18 05:55 05:55 11:39 WBC 18.2 H RBC 3.43 L Hgb 9.1 L Hct 28.7 L MCV 83.7 MCH 26.5 MCHC 31.6 L RDW 18.8 H Plt Count 98 L MPV 9.4 Absolute Neuts (auto) 17.2 H Neutrophils % 94.4 H Neutrophils % (Manual) 91.8 H Band Neutrophils % 0.0 Lymphocytes % 1.3 L Lymphocytes % (Manual) 2.1 L Monocytes % 3.7 L Monocytes % (Manual) 6 Eosinophils % 0.2 D Eosinophils % (Manual) 0.0 Basophils % 0.4 Basophils % (Manual) 0.0 Myelocytes % (Man) 0 Promyelocytes % (Man) 0 Blast Cells % (Manual) 0 Nucleated RBC % 1 H Metamyelocytes 0 Hypochromia 0 Platelet Estimate Decreased Polychromasia 1+ Poikilocytosis 1+ Anisocytosis 0 Microcytosis 0 Macrocytosis 0 Ovalocytes 1+ Stomatocytes 1+ Sodium 133 L Potassium 4.8 Chloride 87 L Carbon Dioxide 39 H Anion Gap 7 L BUN 29.5 H Creatinine 0.6 Est GFR (CKD-EPI)AfAm 114.02 Est GFR (CKD-EPI)NonAf 98.38 POC Glucometer 108 Random Glucose 133 H Calcium 8.8 Magnesium 2.9 H Total Bilirubin 1.0 AST 25 ALT 38 Alkaline Phosphatase 74 Total Protein 5.6 L Albumin 2.8 L Active Medications Generic Name Dose Route Start Last Admin Trade Name Freq PRN Reason Stop Dose Admin Acetaminophen 1,000 mg 10/14/18 16:14 10/19/18 04:30 Ofirmev Injection - IVPB 1,000 mg Q6H PRN Administration FEVER Albuterol Sulfate 1 amp 10/17/18 13:44 10/18/18 20:48 Ventolin 0.5% - NEB 1 amp Q4H PRN Administration SHORT OF BREATH/WHEEZING Cholecalciferol 5,000 unit 10/10/18 10:00 10/19/18 10:26 Vitamin D3 - PO Not Given DAILY [facility]ANG Enoxaparin Sodium 80 mg 10/19/18 22:00 Lovenox - SQ BID [facility]ANG Fludrocortisone Acetate 0.05 mg 10/10/18 11:00 10/19/18 10:26 Florinef - PO Not Given DAILY CHANG Furosemide 40 mg 10/19/18 16:00 Lasix Injection - IVPUSH 10/19/18 16:01 ONCE ONE Hydrocortisone Sodium Succinate 50 mg 10/19/18 22:00 Solu-Cortef - IVPB BID CHANG Meropenem 1 gm/ Sodium 100 mls @ 200 mls/hr 10/13/18 14:25 10/19/18 09:31 Chloride IVPB 200 mls/hr Q8H-IV CHANG Administration Insulin Aspart 1 vial 10/19/18 11:00 10/19/18 11:41 Novolog Vial Sliding Scale - SQ Not Given ACHS CHANG Protocol Insulin Detemir 15 units 10/18/18 22:00 10/18/18 21:27 Levemir Vial SQ 15 units HS CHANG Administration Lactobacillus Acidophilus 1 tab 10/10/18 10:00 10/19/18 10:26 Bacid - PO Not Given DAILY CHANG Metoprolol Tartrate 5 mg 10/19/18 10:42 Lopressor Injection - IVPUSH Q6H PRN HYPERTENSION Nystatin 1 applic 10/14/18 10:00 10/19/18 11:41 Mycostatin Cream - TP 1 applic BID [facility]ANG Administration Pantoprazole Sodium 40 mg 10/11/18 12:15 10/19/18 09:32 Protonix Iv IVPUSH 40 mg DAILY [facility]ANG Administration Tolterodine Tartrate 2 mg 10/10/18 10:00 10/19/18 10:26 Detrol - PO Not Given DAILY [facility]ANG ASSESSMENT/PLAN: 63F pmh CHF, HLD, HTN, sarcoidosis, DM, h/o PE on AC in ICU for acute on chronic diastolic heart failure and septic shock. Patient extubated yesterday and off pressors. Experiencing increased work of breathing on vent-mask. NEURO: - off sedation, off pressors - increased work of breathing but saturating well; monitor mental status CV: acute on chronic diastolic heart failure - off pressors and maintaining BP - maintain MAP >65 - lopressor ordered for HR > 110 - Decr hydrocortisone dose to BID - cardiology recs appreciated - pt may need ALETHEA if wbc continues to rise and she continues to be febrile PULM: s/p extubation - increased work of breathing on venti-mask - will start HFNC (HFNC has decreased her work of breathing) - monitor work of breathing - if work does not decrease obtain ABG - crackles on exam; gave lasix 40 - will give 15:00 lasix 40 again RENAL: - Barclay in place draining well - Patient is diuresing - c/w tolterodine for retention - monitor renal function w/ lasix therapy FENGI: - NPO given tenuous respiratory status - Discussed patient with speech therapy will continue NPO since no voice, will reassess - Protonix - monitor electrolytes ENDO: NIDDM - levemir 15U - AISS ID: septic shock - c/w merpenem - f/u ID re: [id number] - Cx NGTD DVT PPX: start LVX 80mg BID LINES/TUBES/DRAINS: Left Central line in place, day 4. Visit type - Emergency Visit Emergency Visit: No - New Patient This patient is new to me today: No - Critical Care Critical Care patient: Yes Total Critical Care Time (in minutes): 35 Critical Care Statement: The care of this patient involved high complexity decision making to prevent further life threatening deterioration of the patient 's condition and/or to evaluate & treat vital organ system(s) failure or risk of failure.
--- NOTE | 2018-10-19 13:43 | PN ---
Progress Note, Physician History of Present Illness: extubated on high flow nasal canula does not feel too god weak - Current Medication List Current Medications: Active Medications Acetaminophen (Ofirmev Injection -) 1,000 mg IVPB Q6H PRN PRN Reason: FEVER Last Admin: 10/19/18 04:30 Dose: 1,000 mg Albuterol Sulfate (Ventolin 0.5% -) 1 amp NEB Q4H PRN PRN Reason: SHORT OF BREATH/WHEEZING Last Admin: 10/18/18 20:48 Dose: 1 amp Cholecalciferol (Vitamin D3 -) 5,000 unit PO DAILY [facility] Last Admin: 10/19/18 10:26 Dose: Not Given Enoxaparin Sodium (Lovenox -) 80 mg SQ BID [facility] Fludrocortisone Acetate (Florinef -) 0.05 mg PO DAILY [facility] Last Admin: 10/19/18 10:26 Dose: Not Given Furosemide (Lasix Injection -) 40 mg IVPUSH ONCE ONE Stop: 10/19/18 16:01 Hydrocortisone Sodium Succinate (Solu-Cortef -) 50 mg IVPB BID [facility] Insulin Aspart (Novolog Vial Sliding Scale -) 1 vial SQ [facility]; Protocol Last Admin: 10/19/18 11:41 Dose: Not Given Insulin Detemir (Levemir Vial) 15 units SQ HS [facility] Last Admin: 10/18/18 21:27 Dose: 15 units Lactobacillus Acidophilus (Bacid -) 1 tab PO DAILY [facility] Last Admin: 10/19/18 10:26 Dose: Not Given Metoprolol Tartrate (Lopressor Injection -) 5 mg IVPUSH Q6H PRN PRN Reason: HYPERTENSION Nystatin (Mycostatin Cream -) 1 applic TP BID [facility] Last Admin: 10/19/18 11:41 Dose: 1 applic Pantoprazole Sodium (Protonix Iv) 40 mg IVPUSH DAILY [facility] Last Admin: 10/19/18 09:32 Dose: 40 mg Tolterodine Tartrate (Detrol -) 2 mg PO DAILY [facility] Last Admin: 10/19/18 10:26 Dose: Not Given - Objective Vital Signs: Vital Signs Temperature 97.6 F 10/19/18 11:00 Pulse Rate 93 H 10/19/18 12:37 Respiratory Rate 23 H 10/19/18 12:37 Blood Pressure 115/88 10/19/18 12:37 O2 Sat by Pulse Oximetry (%) 98 10/19/18 10:22 Constitutional: Yes: Calm, Mild Distress Cardiovascular: Yes: Regular Rate and Rhythm, Tachycardia Respiratory: Yes: Poor Air Entry, Other (on high flow nasal o2) Gastrointestinal: Yes: Normal Bowel Sounds, Soft Musculoskeletal: Yes: WNL Extremities: Yes: WNL Neurological: Yes: Alert Psychiatric: Yes: Alert Labs: CBC, BMP 10/19/18 05:55 10/19/18 05:55 Assessment/Plan Problem List - Problems (1) GERD (gastroesophageal reflux disease) Code(s): K21.9 - GASTRO-ESOPHAGEAL REFLUX DISEASE WITHOUT ESOPHAGITIS (3) HTN (hypertension) Code(s): I10 - ESSENTIAL (PRIMARY) HYPERTENSION (4) Pacemaker Code(s): Z95.0 - PRESENCE OF CARDIAC PACEMAKER (5) Respiratory failure with hypoxia Code(s): J96.91 - RESPIRATORY FAILURE, UNSPECIFIED WITH HYPOXIA (6) Shock Code(s): R57.9 - SHOCK, UNSPECIFIED (7) Acute on chronic diastolic (congestive) heart failure Code(s): I50.33 - ACUTE ON CHRONIC DIASTOLIC (CONGESTIVE) HEART FAILURE (8) Hyperlipidemia Code(s): E78.5 - HYPERLIPIDEMIA, UNSPECIFIED Qualifiers: Hyperlipidemia type: pure hypercholesterolemia Qualified Code(s): E78.00 - Pure hypercholesterolemia, unspecified; E78.0 - Pure hypercholesterolemia (9) Pulmonary embolism Code(s): I26.99 - OTHER PULMONARY EMBOLISM WITHOUT ACUTE COR PULMONALE (11) Sarcoidosis Code(s): D86.9 - SARCOIDOSIS, UNSPECIFIED (12) Status post tricuspid valve repair Code(s): Z98.890 - OTHER SPECIFIED POSTPROCEDURAL STATES Assessment/Plan 62 y.o. female with PMH of b/l PE diagnosed 09/10/18 on Eliquis, systolic CHF, s/ p PPM, tricuspid repair and bioprosthetic MV repair, Sarcoidosis, hemorrhagic CVA, COPD, HTN, HLD, GERD, s/p cholecystectomy and LT hip surgery initially presented for c/o progressive SOB over the past 2 wks with weakness. Has been reportedly noncompliant with taking Lasix but taking Eliquis. Was transferred to the ICU for respiratory failure requiring intubation, hypotension, hyperthermia. Shock - likely Septic shock in addition to Cardiogenic Acute hypoxemic respiratory failure s/p intubation Hyperthermia B/L PE - r/o new embolism Sarcoidosis Hx of hemorrhagic CVA s/p AICD s/p tricuspid valve repair, bioprosthetic MV replacement Hx of UTI recently on antibiotics patient still intubated clear cut source still not present lactic acid still high plan continue current mgmt wbc increased rest as per the team and icu cx report noted nutrition stopped abx will watch resp support cc 40 min
--- NOTE | 2018-10-19 14:27 | PN ---
Progress Note, Physician History of Present Illness: Pt seen and examined at bedside. She is now extubated. - Current Medication List Current Medications: Active Medications Acetaminophen (Ofirmev Injection -) 1,000 mg IVPB Q6H PRN PRN Reason: FEVER Last Admin: 10/19/18 04:30 Dose: 1,000 mg Albuterol Sulfate (Ventolin 0.5% -) 1 amp NEB Q4H PRN PRN Reason: SHORT OF BREATH/WHEEZING Last Admin: 10/18/18 20:48 Dose: 1 amp Cholecalciferol (Vitamin D3 -) 5,000 unit PO DAILY [facility] Last Admin: 10/19/18 10:26 Dose: Not Given Enoxaparin Sodium (Lovenox -) 80 mg SQ BID [facility] Fludrocortisone Acetate (Florinef -) 0.05 mg PO DAILY [facility] Last Admin: 10/19/18 10:26 Dose: Not Given Furosemide (Lasix Injection -) 40 mg IVPUSH ONCE ONE Stop: 10/19/18 16:01 Hydrocortisone Sodium Succinate (Solu-Cortef -) 50 mg IVPB BID [facility] Insulin Aspart (Novolog Vial Sliding Scale -) 1 vial SQ [facility]; Protocol Last Admin: 10/19/18 11:41 Dose: Not Given Insulin Detemir (Levemir Vial) 15 units SQ HS [facility] Last Admin: 10/18/18 21:27 Dose: 15 units Lactobacillus Acidophilus (Bacid -) 1 tab PO DAILY [facility] Last Admin: 10/19/18 10:26 Dose: Not Given Metoprolol Tartrate (Lopressor Injection -) 5 mg IVPUSH Q6H PRN PRN Reason: HYPERTENSION Nystatin (Mycostatin Cream -) 1 applic TP BID [facility] Last Admin: 10/19/18 11:41 Dose: 1 applic Pantoprazole Sodium (Protonix Iv) 40 mg IVPUSH DAILY [facility] Last Admin: 10/19/18 09:32 Dose: 40 mg Tolterodine Tartrate (Detrol -) 2 mg PO DAILY [facility] Last Admin: 10/19/18 10:26 Dose: Not Given - Objective Vital Signs: Vital Signs Temperature 97.8 F 10/19/18 14:14 Pulse Rate 104 H 10/19/18 14:14 Respiratory Rate 24 H 10/19/18 14:14 Blood Pressure 108/72 10/19/18 14:14 O2 Sat by Pulse Oximetry (%) 98 10/19/18 14:15 Constitutional: Yes: Calm Eyes: Yes: Conjunctiva Clear HENT: Yes: Atraumatic Cardiovascular: Yes: S1, S2 Respiratory: Yes: On Nasal O2, Other (high flow oxygen) Gastrointestinal: Yes: Soft, Abdomen, Obese Genitourinary: Yes: Barclay Present Musculoskeletal: Yes: WNL Edema: Yes Edema: LLE: Trace, RLE: Trace Neurological: Yes: Oriented Psychiatric: Yes: Oriented Labs: CBC, BMP 10/19/18 05:55 10/19/18 05:55 - ....Imaging Chest X-ray: Report Reviewed Problem List - Problems (1) DENISHA (acute kidney injury) Code(s): N17.9 - ACUTE KIDNEY FAILURE, UNSPECIFIED (2) Respiratory failure Code(s): J96.90 - RESPIRATORY FAILURE, UNSP, UNSP W HYPOXIA OR HYPERCAPNIA (3) CHF exacerbation Code(s): I50.9 - HEART FAILURE, UNSPECIFIED Qualifiers: Heart failure type: unspecified Qualified Code(s): I50.9 - Heart failure, unspecified Assessment/Plan Current Medications Generic Name Dose Route Start Last Admin Trade Name Freq PRN Reason Stop Dose Admin Acetaminophen 1,000 mg 10/14/18 16:14 10/19/18 04:30 Ofirmev Injection - IVPB 1,000 mg Q6H PRN Administration FEVER Albuterol Sulfate 1 amp 10/17/18 13:44 10/18/18 20:48 Ventolin 0.5% - NEB 1 amp Q4H PRN Administration SHORT OF BREATH/WHEEZING Cholecalciferol 5,000 unit 10/10/18 10:00 10/19/18 10:26 Vitamin D3 - PO Not Given DAILY CHANG Enoxaparin Sodium 80 mg 10/19/18 22:00 Lovenox - SQ BID [facility] Fludrocortisone Acetate 0.05 mg 10/10/18 11:00 10/19/18 10:26 Florinef - PO Not Given DAILY CHANG Furosemide 40 mg 10/19/18 16:00 Lasix Injection - IVPUSH 10/19/18 16:01 ONCE ONE Hydrocortisone Sodium Succinate 50 mg 10/19/18 22:00 Solu-Cortef - IVPB BID [facility] Insulin Aspart 1 vial 10/19/18 11:00 10/19/18 11:41 Novolog Vial Sliding Scale - SQ Not Given ACHS [facility] Protocol Insulin Detemir 15 units 10/18/18 22:00 10/18/18 21:27 Levemir Vial SQ 15 units HS CHANG Administration Lactobacillus Acidophilus 1 tab 10/10/18 10:00 10/19/18 10:26 Bacid - PO Not Given DAILY CHANG Metoprolol Tartrate 5 mg 10/19/18 10:42 Lopressor Injection - IVPUSH Q6H PRN HYPERTENSION Nystatin 1 applic 10/14/18 10:00 10/19/18 11:41 Mycostatin Cream - TP 1 applic BID CHANG Administration Pantoprazole Sodium 40 mg 10/11/18 12:15 10/19/18 09:32 Protonix Iv IVPUSH 40 mg DAILY [facility] Administration Tolterodine Tartrate 2 mg 10/10/18 10:00 10/19/18 10:26 Detrol - PO Not Given DAILY CHANG Impression 1. DENISHA 2. resp failure 3. chf 4. hx PE 5. hx htn 6. pulm sarcoid 7. shock 8. a-fib 9. hyponatremia Plan - cont lasix - monitor renal function - monitor pulse ox - monitor lytes closely while on diuretics - monitor bp and avoid hypotension
--- NOTE | 2018-10-19 15:06 | PN ---
Progress Note, Physician Chief Complaint: Patient is frustrated that she is still in hospital. History of Present Illness: Patient is a 62 year old female with PMHx of NYHA III systolic CHF, sarcoidosis , HTN, diabetes, HLD presents to [facility] with 2 days of difficulty breathing with wheezing. Hospitalization complicated when patient was found to be in septic shock requiring pressors, intubation. She was also noted to be hyperthermic with rectal temp of 107F. She remains in the ICU for further management and remains intubated. - Current Medication List Current Medications: Active Medications Acetaminophen (Ofirmev Injection -) 1,000 mg IVPB Q6H PRN PRN Reason: FEVER Last Admin: 10/19/18 04:30 Dose: 1,000 mg Albuterol Sulfate (Ventolin 0.5% -) 1 amp NEB Q4H PRN PRN Reason: SHORT OF BREATH/WHEEZING Last Admin: 10/18/18 20:48 Dose: 1 amp Cholecalciferol (Vitamin D3 -) 5,000 unit PO DAILY [facility] Last Admin: 10/19/18 10:26 Dose: Not Given Enoxaparin Sodium (Lovenox -) 80 mg SQ BID [facility] Fludrocortisone Acetate (Florinef -) 0.05 mg PO DAILY [facility] Last Admin: 10/19/18 10:26 Dose: Not Given Furosemide (Lasix Injection -) 40 mg IVPUSH ONCE ONE Stop: 10/19/18 16:01 Hydrocortisone Sodium Succinate (Solu-Cortef -) 50 mg IVPB BID [facility] Insulin Aspart (Novolog Vial Sliding Scale -) 1 vial SQ [facility]; Protocol Last Admin: 10/19/18 11:41 Dose: Not Given Insulin Detemir (Levemir Vial) 15 units SQ HS [facility] Last Admin: 10/18/18 21:27 Dose: 15 units Lactobacillus Acidophilus (Bacid -) 1 tab PO DAILY [facility] Last Admin: 10/19/18 10:26 Dose: Not Given Metoprolol Tartrate (Lopressor Injection -) 5 mg IVPUSH Q6H PRN PRN Reason: HYPERTENSION Nystatin (Mycostatin Cream -) 1 applic TP BID [facility] Last Admin: 10/19/18 11:41 Dose: 1 applic Pantoprazole Sodium (Protonix Iv) 40 mg IVPUSH DAILY [facility] Last Admin: 10/19/18 09:32 Dose: 40 mg Tolterodine Tartrate (Detrol -) 2 mg PO DAILY [facility] Last Admin: 10/19/18 10:26 Dose: Not Given - Objective Vital Signs: Vital Signs Temperature 97.8 F 10/19/18 14:14 Pulse Rate 93 H 10/19/18 15:02 Respiratory Rate 20 10/19/18 15:02 Blood Pressure 117/88 10/19/18 15:02 O2 Sat by Pulse Oximetry (%) 98 10/19/18 14:15 Constitutional: Yes: Well Nourished, No Distress, Anxious Eyes: Yes: WNL, Conjunctiva Clear, EOM Intact HENT: Yes: WNL, Atraumatic Neck: Yes: WNL, Supple, Trachea Midline Cardiovascular: Yes: Regular Rate and Rhythm, Tachycardia Respiratory: Yes: Regular, Diminished (at bases), On Nasal O2 (High Flow) Gastrointestinal: Yes: WNL, Normal Bowel Sounds, Abdomen, Obese ...Rectal Exam: Yes: Deferred Breast(s): Yes: WNL Musculoskeletal: Yes: WNL, Muscle Weakness Extremities: Yes: WNL Edema: Yes Edema: LLE: 1+, RLE: 1+ Peripheral Pulses WNL: Yes Integumentary: Yes: Bruising, Venous Stasis Changes (to lower extremeties) Neurological: Yes: WNL, Alert, Oriented ...Motor Strength: WNL Psychiatric: Yes: WNL, Alert, Oriented Labs: CBC, BMP 10/19/18 05:55 10/19/18 05:55 Problem List - Problems (1) GERD (gastroesophageal reflux disease) Assessment/Plan: c/w IV PPI Code(s): K21.9 - GASTRO-ESOPHAGEAL REFLUX DISEASE WITHOUT ESOPHAGITIS (2) Pacemaker Assessment/Plan: AV dual paced rhythm with multiple PVCs Code(s): Z95.0 - PRESENCE OF CARDIAC PACEMAKER (3) Prophylactic measure Assessment/Plan: FEN monitor electrolytes PPI DVT lovenox 80mh sq q12 Dispo maintain in ICU full code discharge planning Code(s): Z29.9 - ENCOUNTER FOR PROPHYLACTIC MEASURES, UNSPECIFIED (4) Acute on chronic diastolic (congestive) heart failure Assessment/Plan: non-compliant with diuretic therapy c/w lasix 40mg IV q 12H if BP tolerates cardiology consultation apprecited Code(s): I50.33 - ACUTE ON CHRONIC DIASTOLIC (CONGESTIVE) HEART FAILURE (5) Hyperlipidemia Assessment/Plan: c/w atorvastatin when no longer NPO Code(s): E78.5 - HYPERLIPIDEMIA, UNSPECIFIED Qualifiers: Hyperlipidemia type: pure hypercholesterolemia Qualified Code(s): E78.00 - Pure hypercholesterolemia, unspecified; E78.0 - Pure hypercholesterolemia (7) Sarcoidosis Assessment/Plan: c/w home dose prednisone Code(s): D86.9 - SARCOIDOSIS, UNSPECIFIED (8) Status post tricuspid valve repair Code(s): Z98.890 - OTHER SPECIFIED POSTPROCEDURAL STATES (9) Pulmonary embolism Code(s): I26.99 - OTHER PULMONARY EMBOLISM WITHOUT ACUTE COR PULMONALE (10) Respiratory failure with hypoxia Assessment/Plan: extuabted yesterday and remain in [facility] Code(s): J96.91 - RESPIRATORY FAILURE, UNSPECIFIED WITH HYPOXIA (11) DENISHA (acute kidney injury) Assessment/Plan: monitor labs daily renal following Code(s): N17.9 - ACUTE KIDNEY FAILURE, UNSPECIFIED (12) Shock Assessment/Plan: -Shock - likely septic shock in addition to cardiogenic - resolved WBC decreased to 17.6 from 19.2 on stress dose steriods on meropenem and Vanco ID following blood cultures repeated and negative care per ICU Code(s): R57.9 - SHOCK, UNSPECIFIED (13) Troponin I above reference range Assessment/Plan: -Cardiology consultation appreciated. -Patient anticoagulated with Lovenox 80mg subq BID - Code(s): R74.8 - ABNORMAL LEVELS OF OTHER SERUM ENZYMES (14) Metabolic encephalopathy Assessment/Plan: Likely secondary to septic shock - -Head CT reveals no acute intracranial pathology encourage family visitation Code(s): G93.41 - METABOLIC ENCEPHALOPATHY (15) Admitted to intensive care unit Assessment/Plan: appreciate ICU level of care Code(s): Z78.9 - OTHER SPECIFIED HEALTH STATUS (16) Dysphagia Assessment/Plan: Seen by speech pathology and appreciated Speech Evaluation, Impression/Plan Impression: Aphonia. Extubated yesterday. Very weak swallow, not functional. PO trial not attempted due to high risk of aspiration. Speech production poorly intelligible, rapid articulation with limited articulatory excursion. Letter board used with frequent errors in propositional communication. Simple word board constructed for easier communication/function. - Dysphagia Impressions/Plan Swallowing Skills: Impaired Dysphagia Impressions: Profound Impairment, Suspect Aspiration Recommendations: Other (To reevaluate as pt improves.) - Recommendations Diet Consistency: NPO, Other (NPO including meds) Liquids: NPO Code(s): R13.10 - DYSPHAGIA, UNSPECIFIED Visit type - Emergency Visit Emergency Visit: Yes ED Registration Date: 10/09/18 Care time: The patient presented to the Emergency Department on the above date and was hospitalized for further evaluation of their emergent condition. - New Patient This patient is new to me today: No - Critical Care Critical Care patient: Yes Total Critical Care Time (in minutes): 30 Critical Care Statement: The care of this patient involved high complexity decision making to prevent further life threatening deterioration of the patient 's condition and/or to evaluate & treat vital organ system(s) failure or risk of failure. - Discharge Referral Referred to [facility] No
[2018-10-19] MEDS: ENOXAPARIN NA (PORCINE) 80 MG/0.8 ML DISP.SYRIN SQ SCH (22:22)
[2018-10-19] MEDS: INSULIN (LEVEMIR) 100 UNITS/ML UNITS SQ SCH (22:37)
[2018-10-20] MEDS ORDERED: PT OWN MED DRAWER 7, Y5N ONE ×4 (00:38→14:00)
[2018-10-20] MEDS: INSULIN SLIDING SCALE (NOVOLOG) 1 VIAL SQ SCH ×4 (06:19→21:01)
[2018-10-20 06:20] LABS: ALBUMIN 2.6 g/dl (3.4-5.0); ALK PHOS 71 U/L (45-117); ANION GAP 6 MMOL/L (8-16); BILIRUBIN,TOTAL 1.3 mg/dL (0.2-1); CALCIUM 8.6 mg/dL (8.5-10.1); CHLORIDE 89 mmol/L (98-107); CO2 > 45 mmol/L (21-32); CREATININE 0.5 mg/dL (0.55-1.3); GLUCOSE,RANDOM 98 mg/dL (74-106); POTASSIUM 3.2 mmol/L (3.5-5.1); SGOT/AST 28 U/L (15-37); SGPT/ALT 36 U/L (13-61); SODIUM 139 mmol/L (136-145); TOT PROT 5.3 g/dl (6.4-8.2)
[2018-10-20 06:21] LABS: BASO % 1.3 % (0-2.0); EOS % 0.6 % (0-4.5); HEMATOCRIT 28.8 % (32.4-45.2); LYMPH % 1.5 % (8-40); MCH 26.5 pg (25.7-33.7); MCHC 31.2 g/dl (32.0-36.0); MEAN CELL VOLUME 84.9 fl (80-96); MEAN PLT VOLUME 9.6 fl (7.5-11.1); MONO % 4.1 % (3.8-10.2); NEUT % 92.5 % (42.8-82.8); PLATELET COUNT 87 K/MM3 (134-434); RBC 3.39 M/mm3 (3.60-5.2); RDW 18.3 % (11.6-15.6)
--- NOTE | 2018-10-20 06:37 | PN ---
Progress Note (short form) - Note Progress Note: Chief Complaint: Events noted, notes reviewed, patient remains extubated, awake and alert in no distress, atrial pacing with AV sequential ventricular pacing History of Present Illness: Seen and examined in the ICU. Events noted, notes reviewed, patient remains extubated, awake and alert in no distress, atrial pacing with AV sequential ventricular pacing As outlined in prior notes in summary known history of cerebellar bleed, mitral valve disease post mitral valve replacement-Bioprosthesis/history of mitral valve prolapse with moderate to severe mitral valve regurgitation, tricuspid valve repair, pulmonary sarcoidosis, systolic left ventricular dysfunction post prophylactic ICD implantation, AV block, paroxysmal atrial fibrillation and pulmonary thromboembolism on anticoagulation therapy Echocardiography performed March 29, 2018 revealed moderately reduced left ventricular systolic function with LVEF between 35-40%, Bioprosthetic mitral valve with mild mitral valve regurgitation,mild tricuspid valve regurgitation Echocardiography performed October 11, 2018 revealed left ventricular cavity dilatation with severe reduction in left ventricular ejection fraction estimated LVEF between 20-25% - Current Medication List Current Medications Acetaminophen (Ofirmev Injection -) 1,000 mg IVPB Q6H PRN PRN Reason: FEVER Last Admin: 10/19/18 04:30 Dose: 1,000 mg Albuterol Sulfate (Ventolin 0.5% -) 1 amp NEB Q4H PRN PRN Reason: SHORT OF BREATH/WHEEZING Last Admin: 10/18/18 20:48 Dose: 1 amp Cholecalciferol (Vitamin D3 -) 5,000 unit PO DAILY [facility] Last Admin: 10/19/18 10:26 Dose: Not Given Enoxaparin Sodium (Lovenox -) 80 mg SQ BID [facility] Last Admin: 10/19/18 22:22 Dose: 80 mg Fludrocortisone Acetate (Florinef -) 0.05 mg PO DAILY [facility] Last Admin: 10/19/18 10:26 Dose: Not Given Hydrocortisone Sodium Succinate (Solu-Cortef -) 50 mg IVPB BID [facility] Last Admin: 10/19/18 22:24 Dose: 50 mg Insulin Aspart (Novolog Vial Sliding Scale -) 1 vial SQ ACHS [facility]; Protocol Last Admin: 10/20/18 06:19 Dose: Not Given Insulin Detemir (Levemir Vial) 15 units SQ HS [facility] Last Admin: 10/19/18 22:37 Dose: Not Given Lactobacillus Acidophilus (Bacid -) 1 tab PO DAILY [facility] Last Admin: 10/19/18 10:26 Dose: Not Given Metoprolol Tartrate (Lopressor Injection -) 5 mg IVPUSH Q6H PRN PRN Reason: HYPERTENSION Nystatin (Mycostatin Cream -) 1 applic TP BID [facility] Last Admin: 10/19/18 22:24 Dose: 1 applic Pantoprazole Sodium (Protonix Iv) 40 mg IVPUSH DAILY [facility] Last Admin: 10/19/18 09:32 Dose: 40 mg Tolterodine Tartrate (Detrol -) 2 mg PO DAILY [facility] Last Admin: 10/19/18 10:26 Dose: Not Given Review of Systems - Review of Systems Unable to obtain - Objective Vital Signs: Last Vital Signs Temp Pulse Resp BP Pulse Ox 98 F 84 16 109/61 100 10/20/18 06:00 10/20/18 06:00 10/20/18 06:00 10/20/18 06:00 10/19/18 20:04 Intake & Output 10/17/18 10/18/18 10/19/18 10/20/18 23:59 23:59 23:59 23:59 Intake Total 3137 1576.5 400 0 Output Total 426 804 7209 450 Balance 2237 926.5 -1900 -450 Weight 185 lb 11.2 oz 187 lb 4.8 oz 186 lb 2 oz 180 lb 8 oz Constitutional: Intubated Neck: Supple Negative JVD No Bruit Cardiovascular: S1 S2 Regular Rate and Rhythm Respiratory: Scattered Rhonchi Bilaterally Gastrointestinal: Soft Benign Normal Bowel Sounds Ext: Edema Labs: CBC, BMP 10/20/18 05:28 10/20/18 05:28 Assessment/Plan ASSESSMENT: 1. Clinical presentation is consistent with septic shock currently off of pressors- source of sepsis unclear/pneumonia is a suspect 2. 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 Systolic left ventricular dysfunction related to non-ischemic dilated cardiomyopathy, Class I-II [place] [employer] classification left ventricular failure- LVEF between 35-40% on echocardiography performed March 29, 2018/LVEF between 20-25% on echocardiography performed October 11, 2018 4. Post ICD implantation for syncope and complete heart block 5. Post tricuspid valve annuloplasty, for management of severe tricuspid valve regurgitation 6. 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 History of recent pulmonary thromboembolism on anticoagulation therapy/ Lovenox 8. Chronic kidney disease- pre-renal azotemia 8. Hypokalemia 10. Anemia and thrombocytopenia PLAN: 1. Once PO intake recommend Coreg, hemodynamics permitting 2. In addition once PO intake recommend Entresto, hemodynamics permitting and renal function stabilized and at baseline 3. As outlined in prior notes if anemia and thrombocytopenia are persistent Lovenox therapy may need to be withheld, once PO intake resume DOAC's 4. Diuretic therapy to be utilized as needed with caution and close monitoring of renal function and electrolytes 5. Correction of Hypokalmeia 6. Antibiotics as per the primary team Nusrat Cheung M.D.
[2018-10-20] MEDS ORDERED: POTASSIUM CHLORIDE 20 MEQ PREMIX IVPB 100 ML IVPB ONE ×4 (06:47→08:30)
[2018-10-20 08:37] LABS: ANISOCYTOSIS 1+; MACROCYTOSIS 0; PLATELET ESTIMATE DECREASED
--- NOTE | 2018-10-20 08:44 | PN ---
Progress Note, Physician Chief Complaint: Patient states shes tired History of Present Illness: Patient is a 62 year old female with PMHx of NYHA III systolic CHF, sarcoidosis , HTN, diabetes, HLD presents to [facility] with 2 days of difficulty breathing with wheezing. Hospitalization complicated when patient was found to be in septic shock requiring pressors, intubation. She was also noted to be hyperthermic with rectal temp of 107F. She remains in the ICU for further management and remains intubated. - Current Medication List Current Medications: Active Medications Acetaminophen (Ofirmev Injection -) 1,000 mg IVPB Q6H PRN PRN Reason: FEVER Last Admin: 10/19/18 04:30 Dose: 1,000 mg Albuterol Sulfate (Ventolin 0.5% -) 1 amp NEB Q4H PRN PRN Reason: SHORT OF BREATH/WHEEZING Last Admin: 10/18/18 20:48 Dose: 1 amp Cholecalciferol (Vitamin D3 -) 5,000 unit PO DAILY [facility] Last Admin: 10/19/18 10:26 Dose: Not Given Enoxaparin Sodium (Lovenox -) 80 mg SQ BID [facility] Last Admin: 10/19/18 22:22 Dose: 80 mg Fludrocortisone Acetate (Florinef -) 0.05 mg PO DAILY [facility] Last Admin: 10/19/18 10:26 Dose: Not Given Hydrocortisone Sodium Succinate (Solu-Cortef -) 50 mg IVPB BID [facility] Last Admin: 10/19/18 22:24 Dose: 50 mg Insulin Aspart (Novolog Vial Sliding Scale -) 1 vial SQ [facility]; Protocol Last Admin: 10/20/18 06:19 Dose: Not Given Insulin Detemir (Levemir Vial) 15 units SQ [facility] Last Admin: 10/19/18 22:37 Dose: Not Given Lactobacillus Acidophilus (Bacid -) 1 tab PO DAILY [facility] Last Admin: 10/19/18 10:26 Dose: Not Given Metoprolol Tartrate (Lopressor Injection -) 5 mg IVPUSH Q6H PRN PRN Reason: HYPERTENSION Nystatin (Mycostatin Cream -) 1 applic TP BID [facility] Last Admin: 10/19/18 22:24 Dose: 1 applic Pantoprazole Sodium (Protonix Iv) 40 mg IVPUSH DAILY [facility] Last Admin: 10/19/18 09:32 Dose: 40 mg Tolterodine Tartrate (Detrol -) 2 mg PO DAILY [facility] Last Admin: 10/19/18 10:26 Dose: Not Given - Objective Vital Signs: Vital Signs Temperature 98 F 10/20/18 06:00 Pulse Rate 84 10/20/18 06:00 Respiratory Rate 16 10/20/18 06:00 Blood Pressure 109/61 10/20/18 06:00 O2 Sat by Pulse Oximetry (%) 100 10/19/18 20:04 Constitutional: Yes: Well Nourished, Calm, Moderate Distress (on HFNC) Eyes: Yes: WNL, Conjunctiva Clear, EOM Intact HENT: Yes: WNL, Atraumatic, Normocephalic Neck: Yes: WNL, Other (ecchymotic area to right neck extending the clavicular area) Cardiovascular: Yes: Tachycardia Respiratory: Yes: Diminished, On Nasal O2 (HFNC), Rhonchi, SOB on Exertion ( minimal exertion) Gastrointestinal: Yes: Normal Bowel Sounds, Soft, Abdomen, Obese ...Rectal Exam: Yes: Deferred Genitourinary: Yes: Barclay Present Breast(s): Yes: WNL Musculoskeletal: Yes: WNL Extremities: Yes: WNL Edema: Yes Edema: LLE: 1+, RLE: 1+ Peripheral Pulses WNL: Yes Neurological: Yes: Alert, Confusion (to time), Weakness ...Motor Strength: LUE, LLE, RUE, RLE (genralized weakness) Psychiatric: Yes: Alert Labs: CBC, BMP 10/20/18 05:28 10/20/18 05:28 Problem List - Problems (1) GERD (gastroesophageal reflux disease) Assessment/Plan: c/w IV PPI Code(s): K21.9 - GASTRO-ESOPHAGEAL REFLUX DISEASE WITHOUT ESOPHAGITIS (2) Pacemaker Assessment/Plan: AV dual paced rhythm with multiple PVCs Code(s): Z95.0 - PRESENCE OF CARDIAC PACEMAKER (3) Prophylactic measure Assessment/Plan: FEN monitor electrolytes PPI DVT lovenox 80mh sq q12 Dispo maintain in ICU full code discharge planning Code(s): Z29.9 - ENCOUNTER FOR PROPHYLACTIC MEASURES, UNSPECIFIED (4) Acute on chronic diastolic (congestive) heart failure Assessment/Plan: non-compliant with diuretic therapy off vasoprssive agents and maintaining BP Decr hydrocortisone dose from 50 to 25 BID for 4 more days cardiology consultation apprecited Code(s): I50.33 - ACUTE ON CHRONIC DIASTOLIC (CONGESTIVE) HEART FAILURE (5) Hyperlipidemia Assessment/Plan: c/w atorvastatin when no longer NPO Code(s): E78.5 - HYPERLIPIDEMIA, UNSPECIFIED Qualifiers: Hyperlipidemia type: pure hypercholesterolemia Qualified Code(s): E78.00 - Pure hypercholesterolemia, unspecified; E78.0 - Pure hypercholesterolemia (7) Sarcoidosis Assessment/Plan: c/w home dose prednisone after hydrocortisone is completed Code(s): D86.9 - SARCOIDOSIS, UNSPECIFIED (8) Status post tricuspid valve repair Code(s): Z98.890 - OTHER SPECIFIED POSTPROCEDURAL STATES (9) Pulmonary embolism Assessment/Plan: recent BL PE on eliquis at home c/w lovenox Code(s): I26.99 - OTHER PULMONARY EMBOLISM WITHOUT ACUTE COR PULMONALE (10) Respiratory failure with hypoxia Assessment/Plan: remains extuabted on HFNC mainatin sat >92% duo nebs PRN Code(s): J96.91 - RESPIRATORY FAILURE, UNSPECIFIED WITH HYPOXIA (11) DENISHA (acute kidney injury) Assessment/Plan: monitor labs daily renal following Code(s): N17.9 - ACUTE KIDNEY FAILURE, UNSPECIFIED (12) Shock Assessment/Plan: -Shock - likely septic shock in addition to cardiogenic - resolved WBC decreased to 16.0 from 19.2 on stress dose steriods on meropenem and Vanco ID following blood cultures repeated and negative care per ICU Code(s): R57.9 - SHOCK, UNSPECIFIED (13) Troponin I above reference range Assessment/Plan: -Cardiology consultation appreciated. -Patient anticoagulated with Lovenox 80mg subq BID - Code(s): R74.8 - ABNORMAL LEVELS OF OTHER SERUM ENZYMES (14) Metabolic encephalopathy Assessment/Plan: Likely secondary to septic shock - -Head CT reveals no acute intracranial pathology encourage family visitation Code(s): G93.41 - METABOLIC ENCEPHALOPATHY (15) Admitted to intensive care unit Assessment/Plan: appreciate ICU level of care Code(s): Z78.9 - OTHER SPECIFIED HEALTH STATUS (16) Dysphagia Assessment/Plan: Strictly NPO Seen by speech pathology and appreciated Speech Evaluation, Impression/Plan Impression: Aphonia. Extubated yesterday. Very weak swallow, not functional. PO trial not attempted due to high risk of aspiration. Speech production poorly intelligible, rapid articulation with limited articulatory excursion. Letter board used with frequent errors in propositional communication. Simple word board constructed for easier communication/function. - Dysphagia Impressions/Plan Swallowing Skills: Impaired Dysphagia Impressions: Profound Impairment, Suspect Aspiration Recommendations: Other (To reevaluate as pt improves.) - Recommendations Diet Consistency: NPO, Other (NPO including meds) Liquids: NPO Code(s): R13.10 - DYSPHAGIA, UNSPECIFIED Visit type - Emergency Visit Emergency Visit: Yes ED Registration Date: 10/09/18 Care time: The patient presented to the Emergency Department on the above date and was hospitalized for further evaluation of their emergent condition. - New Patient This patient is new to me today: No - Critical Care Critical Care patient: Yes Total Critical Care Time (in minutes): 30 Critical Care Statement: The care of this patient involved high complexity decision making to prevent further life threatening deterioration of the patient 's condition and/or to evaluate & treat vital organ system(s) failure or risk of failure. - Discharge Referral Referred to [facility] Med P.C.: No
[2018-10-20] MEDS: HYDROCORTISONE SOD SUCCINATE 100 MG/2 ML VIAL IVPB SCH ×2 (10:01→21:15)
[2018-10-20] MEDS: PANTOPRAZOLE SODIUM 40 MG VIAL IVPUSH SCH (10:04)
[2018-10-20] MEDS: ENOXAPARIN NA (PORCINE) 80 MG/0.8 ML DISP.SYRIN SQ SCH ×2 (10:07→21:14)
--- NOTE | 2018-10-20 10:38 | PN ---
Progress Note, [employer] - Note Progress Note: Voice remains Aphonic. Oriented to hospital, December,. Flat affect. Limited communication, uses gesture with impaired speech intelligibility. Use word/letter communication board to support functional communicatrion. Confirm with yes/No Continue NPO for now. Nursing to review with medical team nutritional support. Pt on Hi-halle.
--- NOTE | 2018-10-20 10:41 | PN ---
Teaching Attending Note Name of Resident: Claudy Amaya ATTENDING PHYSICIAN STATEMENT I saw and evaluated the patient. I reviewed the resident's note and discussed the case with the resident. I agree with the resident's findings and plan as documented. SUBJECTIVE: Pt seen and examined in the ICU. Remains on HFOT. States breathing better. Voice still weak. OBJECTIVE: Vital Signs Period Temp Pulse Resp BP Sys/Zayas Pulse Ox Last 24 Hr 97.6 F-98.6 F 84-115 16-24 104-131/56-98 98-100 Intake & Output 10/17/18 10/18/18 10/19/18 10/20/18 23:59 23:59 23:59 23:59 Intake Total 3137 1576.5 400 0 Output Total 443 998 3161 450 Balance 2237 926.5 -1900 -450 Weight 84.232 kg 84.958 kg 84.425 kg 81.873 kg Gen: mildly tachypneic at rest Heart: tachycardic, irregular Lung: decreased breath sounds at the bases Abd: soft, nontender Ext: trace edema CBC, BMP 10/20/18 05:28 10/20/18 05:28 Active Medications Acetaminophen (Ofirmev Injection -) 1,000 mg IVPB Q6H PRN PRN Reason: FEVER Last Admin: 10/19/18 04:30 Dose: 1,000 mg Albuterol Sulfate (Ventolin 0.5% -) 1 amp NEB Q4H PRN PRN Reason: SHORT OF BREATH/WHEEZING Last Admin: 10/18/18 20:48 Dose: 1 amp Enoxaparin Sodium (Lovenox -) 80 mg SQ BID [facility] Last Admin: 10/20/18 10:07 Dose: 80 mg Fludrocortisone Acetate (Florinef -) 0.05 mg PO DAILY [facility] Last Admin: 10/19/18 10:26 Dose: Not Given Furosemide (Lasix Injection -) 40 mg IVPUSH ONCE ONE Stop: 10/20/18 14:01 Hydrocortisone Sodium Succinate (Solu-Cortef -) 25 mg IVPB BID [facility] Stop: 10/21/18 10:01 Insulin Aspart (Novolog Vial Sliding Scale -) 1 vial SQ [facility]; Protocol Last Admin: 10/20/18 06:19 Dose: Not Given Insulin Detemir (Levemir Vial) 15 units SQ HS [facility] Last Admin: 10/19/18 22:37 Dose: Not Given Metoprolol Tartrate (Lopressor Injection -) 5 mg IVPUSH Q6H PRN PRN Reason: HYPERTENSION Nystatin (Mycostatin Cream -) 1 applic TP BID [facility] Last Admin: 10/19/18 22:24 Dose: 1 applic Pantoprazole Sodium (Protonix Iv) 40 mg IVPUSH DAILY [facility] Last Admin: 10/20/18 10:04 Dose: 40 mg Tolterodine Tartrate (Detrol -) 2 mg PO DAILY [facility] Last Admin: 10/19/18 10:26 Dose: Not Given ASSESSMENT AND PLAN: Acute Hypoxic Respiratory Failure Shock of unclear source - Septic vs Cardiogenic h/o Bilateral Pulmonary Emboli Pulmonary Sarcoidosis Atrial Fibrillation s/p PPM Thrombocytopenia h/o Intracranial Hemorrhage - completed antibiotics - reculture if febrile - off pressors, maintain MAP >65 - taper off stress dose steroids - rate control - continue anticoagulation - lasix once today - taper HFOT to keep SpO2 >90% - enteral feeds - DVT/GI prophylaxis - continue ICU monitoring for tenuous respiratory status critical care time spent in reviewing chart, evaluating patient and formulating plan 35 min
[2018-10-20] MEDS: NYSTATIN 100,000 UNIT/GM TOPICAL CREAM 15 GM TUBE TP SCH ×2 (11:42→21:15)
--- NOTE | 2018-10-20 13:57 | PN ---
Progress Note, Physician History of Present Illness: Pt seen and examined at bedside. She remains extubated. She appears weak. - Current Medication List Current Medications: Active Medications Acetaminophen (Ofirmev Injection -) 1,000 mg IVPB Q6H PRN PRN Reason: FEVER Last Admin: 10/19/18 04:30 Dose: 1,000 mg Albuterol Sulfate (Ventolin 0.5% -) 1 amp NEB Q4H PRN PRN Reason: SHORT OF BREATH/WHEEZING Last Admin: 10/18/18 20:48 Dose: 1 amp Enoxaparin Sodium (Lovenox -) 80 mg SQ BID [facility] Last Admin: 10/20/18 10:07 Dose: 80 mg Fludrocortisone Acetate (Florinef -) 0.05 mg PO DAILY [facility] Last Admin: 10/19/18 10:26 Dose: Not Given Furosemide (Lasix Injection -) 40 mg IVPUSH ONCE ONE Stop: 10/20/18 14:01 Hydrocortisone Sodium Succinate (Solu-Cortef -) 25 mg IVPB BID [facility] Stop: 10/21/18 10:01 Insulin Aspart (Novolog Vial Sliding Scale -) 1 vial SQ [facility]; Protocol Last Admin: 10/20/18 11:38 Dose: Not Given Insulin Detemir (Levemir Vial) 15 units SQ [facility] Last Admin: 10/19/18 22:37 Dose: Not Given Metoprolol Tartrate (Lopressor Injection -) 5 mg IVPUSH Q6H PRN PRN Reason: HYPERTENSION Last Admin: 10/20/18 11:30 Dose: 5 mg Nystatin (Mycostatin Cream -) 1 applic TP BID [facility] Last Admin: 10/20/18 11:42 Dose: 1 applic Pantoprazole Sodium (Protonix Iv) 40 mg IVPUSH DAILY [facility] Last Admin: 10/20/18 10:04 Dose: 40 mg Tolterodine Tartrate (Detrol -) 2 mg PO DAILY [facility] Last Admin: 10/19/18 10:26 Dose: Not Given - Objective Vital Signs: Vital Signs Temperature 98.2 F 10/20/18 10:00 Pulse Rate 92 H 10/20/18 11:39 Respiratory Rate 17 10/20/18 11:39 Blood Pressure 115/76 10/20/18 11:39 O2 Sat by Pulse Oximetry (%) 100 10/19/18 20:04 Constitutional: Yes: Calm Eyes: Yes: Conjunctiva Clear HENT: Yes: Atraumatic Neck: Yes: Supple Cardiovascular: Yes: S1, S2 Respiratory: Yes: Other (on high flow nc) Gastrointestinal: Yes: Soft, Abdomen, Obese Genitourinary: Yes: Barclay Present Musculoskeletal: Yes: Muscle Weakness Edema: Yes Edema: LLE: Trace, RLE: Trace Neurological: Yes: Other (awake) Labs: CBC, BMP 10/20/18 05:28 10/20/18 05:28 Problem List - Problems (1) DENISHA (acute kidney injury) Code(s): N17.9 - ACUTE KIDNEY FAILURE, UNSPECIFIED (2) Respiratory failure Code(s): J96.90 - RESPIRATORY FAILURE, UNSP, UNSP W HYPOXIA OR HYPERCAPNIA (3) CHF exacerbation Code(s): I50.9 - HEART FAILURE, UNSPECIFIED Qualifiers: Heart failure type: unspecified Qualified Code(s): I50.9 - Heart failure, unspecified Assessment/Plan Current Medications Generic Name Dose Route Start Last Admin Trade Name Freq PRN Reason Stop Dose Admin Acetaminophen 1,000 mg 10/14/18 16:14 10/19/18 04:30 Ofirmev Injection - IVPB 1,000 mg Q6H PRN Administration FEVER Albuterol Sulfate 1 amp 10/17/18 13:44 10/18/18 20:48 Ventolin 0.5% - NEB 1 amp Q4H PRN Administration SHORT OF BREATH/WHEEZING Enoxaparin Sodium 80 mg 10/19/18 22:00 10/20/18 10:07 Lovenox - SQ 80 mg BID [facility] Administration Fludrocortisone Acetate 0.05 mg 10/10/18 11:00 10/19/18 10:26 Florinef - PO Not Given DAILY [facility] Furosemide 40 mg 10/20/18 14:00 Lasix Injection - IVPUSH 10/20/18 14:01 ONCE ONE Hydrocortisone Sodium Succinate 25 mg 10/20/18 10:22 Solu-Cortef - IVPB 10/21/18 10:01 BID [facility] Insulin Aspart 1 vial 10/19/18 11:00 10/20/18 11:38 Novolog Vial Sliding Scale - SQ Not Given ACHS [facility] Protocol Insulin Detemir 15 units 10/18/18 22:00 10/19/18 22:37 Levemir Vial SQ Not Given HS [facility] Metoprolol Tartrate 5 mg 10/19/18 10:42 10/20/18 11:30 Lopressor Injection - IVPUSH 5 mg Q6H PRN Administration HYPERTENSION Nystatin 1 applic 10/14/18 10:00 10/20/18 11:42 Mycostatin Cream - TP 1 applic BID [facility] Administration Pantoprazole Sodium 40 mg 10/11/18 12:15 10/20/18 10:04 Protonix Iv IVPUSH 40 mg DAILY [facility] Administration Tolterodine Tartrate 2 mg 10/10/18 10:00 10/19/18 10:26 Detrol - PO Not Given DAILY [facility] Impression 1. DENISHA 2. resp failure 3. chf 4. hx PE 5. hx htn 6. pulm sarcoid 7. shock 8. a-fib 9. hyponatremia Plan - monitor lytes on lasix - replace potassium - cr showing improvement - consider checking a blood gas - pulmonary follow up - monitor bp and avoid hypotension
[2018-10-20] MEDS ORDERED: FUROSEMIDE 40 MG/4 ML INJECTABLE VIAL IVPUSH ONE (14:00)
[2018-10-20] MEDS: TOLTERODINE TARTRATE 2 MG TABLET PO SCH (14:24)
[2018-10-20] MEDS: FLUDROCORTISONE ACETATE 0.1 MG TABLET (FP) PO SCH (14:24)
--- NOTE | 2018-10-20 14:43 | PN ---
Physical Exam: SUBJECTIVE: Patient seen and examined at bedside. No acute events overnight, patient doing well on HFNC, no complaints. Denies f/c, chest pain, sob, n/v, abd pain. OBJECTIVE: Vital Signs Period Temp Pulse Resp BP Sys/Zayas Pulse Ox Last 24 Hr 98 F-98.6 F 84-123 16-22 104-150/56-98 98-100 GEN: NAD; communicating via letter board. HEENT: NC/AT, EOMI. No facial asymmetry. Dry mucous membranes. Weak voice, whispering. Supple neck w/ FROM. CV: S1/S2, RRR, no m/r/g LUNG: CTAB, no wheezes, crackles, rales, rhonchi. GI: soft, ndnt, +BS, no guarding, no rebound. Neg CVAT b/l. No masses. EXTREMITIES: SCDs in place. 2+ pitting edema b/l. SKIN: warm, dry Laboratory Results - last 24 hr 10/19/18 10/19/18 10/19/18 17:22 17:40 21:17 WBC RBC Hgb Hct MCV MCH MCHC RDW Plt Count MPV Absolute Neuts (auto) Neutrophils % Neutrophils % (Manual) Band Neutrophils % Lymphocytes % Lymphocytes % (Manual) Monocytes % Monocytes % (Manual) Eosinophils % Eosinophils % (Manual) Basophils % Basophils % (Manual) Myelocytes % (Man) Promyelocytes % (Man) Blast Cells % (Manual) Nucleated RBC % Metamyelocytes Hypochromia Platelet Estimate Polychromasia Poikilocytosis Anisocytosis Microcytosis Macrocytosis Sodium Potassium Chloride Carbon Dioxide Anion Gap BUN Creatinine Est GFR (CKD-EPI)AfAm Est GFR (CKD-EPI)NonAf POC Glucometer 105 82 Random Glucose Calcium Magnesium Total Bilirubin AST ALT Alkaline Phosphatase Total Protein Albumin Stool Occult Blood Negative 10/20/18 10/20/18 10/20/18 05:28 05:28 05:48 WBC 16.0 H RBC 3.39 L Hgb 9.0 L Hct 28.8 L MCV 84.9 MCH 26.5 MCHC 31.2 L RDW 18.3 H Plt Count 87 L MPV 9.6 Absolute Neuts (auto) 14.8 H Neutrophils % 92.5 H Neutrophils % (Manual) 94.0 H Band Neutrophils % 0.0 Lymphocytes % 1.5 L Lymphocytes % (Manual) 2.0 L Monocytes % 4.1 Monocytes % (Manual) 3 L Eosinophils % 0.6 D Eosinophils % (Manual) 1.0 D Basophils % 1.3 D Basophils % (Manual) 0.0 Myelocytes % (Man) 0 Promyelocytes % (Man) 0 Blast Cells % (Manual) 0 Nucleated RBC % 1 H Metamyelocytes 0 Hypochromia 1+ Platelet Estimate Decreased Polychromasia 1+ Poikilocytosis 1+ Anisocytosis 1+ Microcytosis 1+ Macrocytosis 0 Sodium 139 Potassium 3.2 L Chloride 89 L Carbon Dioxide > 45 H Anion Gap 6 L BUN 32.0 H Creatinine 0.5 L Est GFR (CKD-EPI)AfAm 121.07 Est GFR (CKD-EPI)NonAf 104.46 POC Glucometer 93 Random Glucose 98 Calcium 8.6 Magnesium 3.0 H Total Bilirubin 1.3 H AST 28 ALT 36 Alkaline Phosphatase 71 Total Protein 5.3 L Albumin 2.6 L Stool Occult Blood 10/20/18 11:36 WBC RBC Hgb Hct MCV MCH MCHC RDW Plt Count MPV Absolute Neuts (auto) Neutrophils % Neutrophils % (Manual) Band Neutrophils % Lymphocytes % Lymphocytes % (Manual) Monocytes % Monocytes % (Manual) Eosinophils % Eosinophils % (Manual) Basophils % Basophils % (Manual) Myelocytes % (Man) Promyelocytes % (Man) Blast Cells % (Manual) Nucleated RBC % Metamyelocytes Hypochromia Platelet Estimate Polychromasia Poikilocytosis Anisocytosis Microcytosis Macrocytosis Sodium Potassium Chloride Carbon Dioxide Anion Gap BUN Creatinine Est GFR (CKD-EPI)AfAm Est GFR (CKD-EPI)NonAf POC Glucometer 94 Random Glucose Calcium Magnesium Total Bilirubin AST ALT Alkaline Phosphatase Total Protein Albumin Stool Occult Blood Active Medications Generic Name Dose Route Start Last Admin Trade Name Freq PRN Reason Stop Dose Admin Acetaminophen 1,000 mg 10/14/18 16:14 10/19/18 04:30 Ofirmev Injection - IVPB 1,000 mg Q6H PRN Administration FEVER Albuterol Sulfate 1 amp 10/17/18 13:44 10/18/18 20:48 Ventolin 0.5% - NEB 1 amp Q4H PRN Administration SHORT OF BREATH/WHEEZING Enoxaparin Sodium 80 mg 10/19/18 22:00 10/20/18 10:07 Lovenox - SQ 80 mg BID CHANG Administration Fludrocortisone Acetate 0.05 mg 10/10/18 11:00 10/20/18 14:24 Florinef - PO Not Given DAILY CHANG Hydrocortisone Sodium Succinate 25 mg 10/20/18 10:22 Solu-Cortef - IVPB 10/21/18 10:01 BID CHANG Insulin Aspart 1 vial 10/19/18 11:00 10/20/18 11:38 Novolog Vial Sliding Scale - SQ Not Given ACHS [facility] Protocol Insulin Detemir 15 units 10/18/18 22:00 10/19/18 22:37 Levemir Vial SQ Not Given HS [facility] Metoprolol Tartrate 5 mg 10/19/18 10:42 10/20/18 11:30 Lopressor Injection - IVPUSH 5 mg Q6H PRN Administration HYPERTENSION Nystatin 1 applic 10/14/18 10:00 10/20/18 11:42 Mycostatin Cream - TP 1 applic BID CHANG Administration Pantoprazole Sodium 40 mg 10/11/18 12:15 10/20/18 10:04 Protonix Iv IVPUSH 40 mg DAILY CHANG Administration Tolterodine Tartrate 2 mg 10/10/18 10:00 10/20/18 14:24 Detrol - PO Not Given DAILY [facility] ASSESSMENT/PLAN: 63F pmh CHF, HLD, HTN, sarcoidosis, DM, h/o PE on AC in ICU for acute on chronic diastolic heart failure and septic shock. Patient extubated, off pressors, and now on HFNC at FiO2 60%. Per ID, will stop IV abx. NEURO: s/p pressors and extubation - off sedation, off pressors CV: acute on chronic diastolic heart failure - off pressors and maintaining BP - maintain MAP >65 - lopressor for HR > 110 - Decr hydrocortisone dose from 50 to 25 BID for 4 more days - cardiology recs appreciated - pt may need ALETHEA if wbc continues to rise and she continues to be febrile 10/20/18 16:39: Pt had an asymptomatic run of self resolving VT. Lasted about 6 seconds. Pt denies chest pain/palpitations. Pt maintained BP, mental status, and saturation. Repeated BMP and Mg - K4.1, Mg 3.0. Repeat EKG ordered. PULM: s/p extubation - pt doing well on HFNC at FiO2 60%, continue - monitor work of breathing - lungs clear today - concern regarding contraction alkalosis, will hold 1 dose of lasix today - albuterol prn RENAL: ?contraction alkalosis - Barclay in place draining well - Patient is diuresing - renal recs appreciated; consider blood gas, K repletion, monitor lytes, BP - monitor renal function w/ lasix therapy - Bicarb >35, BUN/Cr 32/0.5 - will hold one dose of lasix FENGI: - Speech/swallow recs appreciated, will maintain NPO - Protonix - monitor electrolytes - K 3.3; repleted w/ 20mEQ x2 ENDO: NIDDM - levemir 15U - AISS ID: septic shock - ID recs appreciated - DC meropenam - Cx NGTD DVT PPX: LVX 80mg BID LINES/TUBES/DRAINS: Left Central line placed 10/15/18, day 5. Visit type - Emergency Visit Emergency Visit: No - New Patient This patient is new to me today: No - Critical Care Critical Care patient: Yes Total Critical Care Time (in minutes): 35 Critical Care Statement: The care of this patient involved high complexity decision making to prevent further life threatening deterioration of the patient 's condition and/or to evaluate & treat vital organ system(s) failure or risk of failure.
[2018-10-20] MEDS ORDERED: METOPROLOL TARTRATE 5 MG/5 ML VIAL IVPUSH PRN (15:44)
[2018-10-20] MEDS ORDERED: AMINO ACIDS 4.25%/D5W 1,000 ML IV SCH (16:00)
[2018-10-20] MEDS ORDERED: MULTIVIT INJECTION ADULT 10 ML in AMINO ACIDS 4.25%/D5W 1,000 ML IV SCH (16:01)
[2018-10-20 17:44] LABS: BLOOD UREA NITROGEN 33.4 mg/dL (7-18); CALCIUM 8.7 mg/dL (8.5-10.1); CREATININE 0.5 mg/dL (0.55-1.3); POTASSIUM 4.1 mmol/L (3.5-5.1)
--- NOTE | 2018-10-20 19:09 | PN ---
Progress Note, Physician History of Present Illness: patient looks better still requiring high flow nasal canula had a run of vtach - Current Medication List Current Medications: Active Medications Acetaminophen (Ofirmev Injection -) 1,000 mg IVPB Q6H PRN PRN Reason: FEVER Last Admin: 10/19/18 04:30 Dose: 1,000 mg Albuterol Sulfate (Ventolin 0.5% -) 1 amp NEB Q4H PRN PRN Reason: SHORT OF BREATH/WHEEZING Last Admin: 10/18/18 20:48 Dose: 1 amp Enoxaparin Sodium (Lovenox -) 80 mg SQ BID [facility] Last Admin: 10/20/18 10:07 Dose: 80 mg Fludrocortisone Acetate (Florinef -) 0.05 mg PO DAILY [facility] Last Admin: 10/20/18 14:24 Dose: Not Given Hydrocortisone Sodium Succinate (Solu-Cortef -) 25 mg IVPB BID [facility] Stop: 10/21/18 10:01 Multivitamins/Minerals 10 ml/ (Amino Acids) 1,010 mls @ 42 mls/hr IV Q24H [facility] Insulin Aspart (Novolog Vial Sliding Scale -) 1 vial SQ [facility]; Protocol Last Admin: 10/20/18 16:18 Dose: Not Given Insulin Detemir (Levemir Vial) 15 units SQ HS [facility] Last Admin: 10/19/18 22:37 Dose: Not Given Metoprolol Tartrate (Lopressor Injection -) 5 mg IVPUSH Q4H-IV [facility] Nystatin (Mycostatin Cream -) 1 applic TP BID [facility] Last Admin: 10/20/18 11:42 Dose: 1 applic Pantoprazole Sodium (Protonix Iv) 40 mg IVPUSH DAILY [facility] Last Admin: 10/20/18 10:04 Dose: 40 mg Tolterodine Tartrate (Detrol -) 2 mg PO DAILY [facility] Last Admin: 10/20/18 14:24 Dose: Not Given - Objective Vital Signs: Vital Signs Temperature 98.1 F 10/20/18 18:00 Pulse Rate 112 H 10/20/18 18:00 Respiratory Rate 20 10/20/18 18:00 Blood Pressure 98/71 10/20/18 18:00 O2 Sat by Pulse Oximetry (%) 100 10/19/18 20:04 Constitutional: Yes: No Distress, Calm Cardiovascular: Yes: S1, S2, Other (had vtach) Respiratory: Yes: Poor Air Entry, Other (on high flow nasal canula) Gastrointestinal: Yes: Normal Bowel Sounds, Soft Musculoskeletal: Yes: WNL Extremities: Yes: WNL Neurological: Yes: Alert, Oriented Psychiatric: Yes: Alert, Oriented Labs: CBC, BMP 10/20/18 05:28 10/20/18 17:00 Assessment/Plan Problem List - Problems (1) GERD (gastroesophageal reflux disease) Code(s): K21.9 - GASTRO-ESOPHAGEAL REFLUX DISEASE WITHOUT ESOPHAGITIS (3) HTN (hypertension) Code(s): I10 - ESSENTIAL (PRIMARY) HYPERTENSION (4) Pacemaker Code(s): Z95.0 - PRESENCE OF CARDIAC PACEMAKER (5) Respiratory failure with hypoxia Code(s): J96.91 - RESPIRATORY FAILURE, UNSPECIFIED WITH HYPOXIA (6) Shock Code(s): R57.9 - SHOCK, UNSPECIFIED (7) Acute on chronic diastolic (congestive) heart failure Code(s): I50.33 - ACUTE ON CHRONIC DIASTOLIC (CONGESTIVE) HEART FAILURE (8) Hyperlipidemia Code(s): E78.5 - HYPERLIPIDEMIA, UNSPECIFIED Qualifiers: Hyperlipidemia type: pure hypercholesterolemia Qualified Code(s): E78.00 - Pure hypercholesterolemia, unspecified; E78.0 - Pure hypercholesterolemia (9) Pulmonary embolism Code(s): I26.99 - OTHER PULMONARY EMBOLISM WITHOUT ACUTE COR PULMONALE (11) Sarcoidosis Code(s): D86.9 - SARCOIDOSIS, UNSPECIFIED (12) Status post tricuspid valve repair Code(s): Z98.890 - OTHER SPECIFIED POSTPROCEDURAL STATES Assessment/Plan 62 y.o. female with PMH of b/l PE diagnosed 09/10/18 on Eliquis, systolic CHF, s/ p PPM, tricuspid repair and bioprosthetic MV repair, Sarcoidosis, hemorrhagic CVA, COPD, HTN, HLD, GERD, s/p cholecystectomy and LT hip surgery initially presented for c/o progressive SOB over the past 2 wks with weakness. Has been reportedly noncompliant with taking Lasix but taking Eliquis. Was transferred to the ICU for respiratory failure requiring intubation, hypotension, hyperthermia. Shock - likely Septic shock in addition to Cardiogenic Acute hypoxemic respiratory failure s/p intubation Hyperthermia B/L PE - r/o new embolism Sarcoidosis Hx of hemorrhagic CVA s/p AICD s/p tricuspid valve repair, bioprosthetic MV replacement Hx of UTI recently on antibiotics patient still intubated clear cut source still not present lactic acid still high plan continue current mgmt monitor wbc rest as per the team and icu cx report noted nutrition stable off of abx will watch resp support cc 40 min
[2018-10-20] MEDS: METOPROLOL TARTRATE 5 MG/5 ML VIAL IVPUSH SCH ×2 (19:17→22:34)
[2018-10-20] MEDS: INSULIN (LEVEMIR) 100 UNITS/ML UNITS SQ SCH (21:14)
[2018-10-21] MEDS: METOPROLOL TARTRATE 5 MG/5 ML VIAL IVPUSH SCH ×3 (05:38→09:46)
[2018-10-21] MEDS ORDERED: DEXTROSE 50%-WATER - 25 GM/50 ML VIAL IVPUSH ONE ×2 (06:00→11:21)
[2018-10-21] MEDS ORDERED: DEXTROSE 50%-WATER 25 GM/50 ML DISP.SYRIN ONE ×2 (06:01→11:28)
[2018-10-21] MEDS: INSULIN SLIDING SCALE (NOVOLOG) 1 VIAL SQ SCH ×2 (06:04→11:24)
[2018-10-21 06:27] LABS: BASO % 0.2 % (0-2.0); HEMATOCRIT 26.2 % (32.4-45.2); HEMOGLOBIN 8.2 GM/dL (10.7-15.3); LYMPH % 2.5 % (8-40); MCH 26.5 pg (25.7-33.7); MCHC 31.5 g/dl (32.0-36.0); MEAN CELL VOLUME 84.2 fl (80-96); MEAN PLT VOLUME 9.1 fl (7.5-11.1); MONO % 5.5 % (3.8-10.2); NEUT % 91.8 % (42.8-82.8); PLATELET COUNT 89 K/MM3 (134-434); RBC 3.11 M/mm3 (3.60-5.2); RDW 19.1 % (11.6-15.6); WHITE BLOOD COUNT 12.7 K/mm3 (4.0-10.0)
[2018-10-21 06:57] LABS: ALBUMIN 2.5 g/dl (3.4-5.0); ALK PHOS 67 U/L (45-117); ANION GAP 3 MMOL/L (8-16); BILIRUBIN,TOTAL 0.9 mg/dL (0.2-1); BLOOD UREA NITROGEN 36.6 mg/dL (7-18); CALCIUM 8.4 mg/dL (8.5-10.1); CHLORIDE 94 mmol/L (98-107); CO2 > 45 mmol/L (21-32); CREATININE 0.3 mg/dL (0.55-1.3); GLUCOSE,RANDOM 60 mg/dL (74-106); PHOSPHOROUS 2.8 mg/dL (2.5-4.9); POTASSIUM 3.1 mmol/L (3.5-5.1); SGOT/AST 38 U/L (15-37); SGPT/ALT 37 U/L (13-61); SODIUM 143 mmol/L (136-145)
--- NOTE | 2018-10-21 07:41 | DS ---
Physical Exam: SUBJECTIVE: Patient seen and examined OBJECTIVE: Vital Signs Period Temp Pulse Resp BP Sys/Zayas Pulse Ox Last 24 Hr 97.5 F-98.2 F 80-126 14-23 88-150/44-96 100-100 PHYSICAL EXAM Constitutional: Yes: Well Nourished, Calm, Moderate Distress (on HFNC) Eyes: Yes: WNL, Conjunctiva Clear, EOM Intact HENT: Yes: WNL, Atraumatic, Normocephalic Neck: Yes: WNL, Other (ecchymotic area to right neck extending the clavicular area) Cardiovascular: Yes: Tachycardia Respiratory: Yes: Diminished, On Nasal O2 (HFNC), Rhonchi, SOB on Exertion ( minimal exertion) Gastrointestinal: Yes: Normal Bowel Sounds, Soft, Abdomen, Obese ...Rectal Exam: Yes: Deferred Genitourinary: Yes: Barclay Present Breast(s): Yes: WNL Musculoskeletal: Yes: WNL Extremities: Yes: WNL Edema: Yes Edema: LLE: 1+, RLE: 1+ Peripheral Pulses WNL: Yes Neurological: Yes: Alert, Confusion (to time), Weakness ...Motor Strength: LUE, LLE, RUE, RLE (genralized weakness) Psychiatric: Yes: Alert LABS Laboratory Results - last 24 hr 10/20/18 10/20/18 10/20/18 05:28 11:36 16:15 WBC RBC Hgb Hct MCV MCH MCHC RDW Plt Count MPV Absolute Neuts (auto) Neutrophils % Neutrophils % (Manual) 94.0 H Band Neutrophils % 0.0 Lymphocytes % Lymphocytes % (Manual) 2.0 L Monocytes % Monocytes % (Manual) 3 L Eosinophils % Eosinophils % (Manual) 1.0 D Basophils % Basophils % (Manual) 0.0 Myelocytes % (Man) 0 Promyelocytes % (Man) 0 Blast Cells % (Manual) 0 Nucleated RBC % Metamyelocytes 0 Hypochromia 1+ Platelet Estimate Decreased Polychromasia 1+ Poikilocytosis 1+ Anisocytosis 1+ Microcytosis 1+ Macrocytosis 0 Sodium Potassium Chloride Carbon Dioxide Anion Gap BUN Creatinine Est GFR (CKD-EPI)AfAm Est GFR (CKD-EPI)NonAf POC Glucometer 94 120 Random Glucose Calcium Phosphorus Magnesium Total Bilirubin AST ALT Alkaline Phosphatase Total Protein Albumin 10/20/18 10/20/1819 17:00 21:00 05:50 WBC 12.7 H RBC 3.11 L Hgb 8.2 L Hct 26.2 L MCV 84.2 MCH 26.5 MCHC 31.5 L RDW 19.1 H Plt Count 89 L MPV 9.1 Absolute Neuts (auto) 11.7 H Neutrophils % 91.8 H Neutrophils % (Manual) Band Neutrophils % Lymphocytes % 2.5 L D Lymphocytes % (Manual) Monocytes % 5.5 Monocytes % (Manual) Eosinophils % 0.0 D Eosinophils % (Manual) Basophils % 0.2 Basophils % (Manual) Myelocytes % (Man) Promyelocytes % (Man) Blast Cells % (Manual) Nucleated RBC % 0 Metamyelocytes Hypochromia Platelet Estimate Polychromasia Poikilocytosis Anisocytosis Microcytosis Macrocytosis Sodium 141 Potassium 4.1 Chloride 91 L Carbon Dioxide 44 H Anion Gap 6 L BUN 33.4 H Creatinine 0.5 L Est GFR (CKD-EPI)AfAm 121.07 Est GFR (CKD-EPI)NonAf 104.46 POC Glucometer 115 Random Glucose 121 H Calcium 8.7 Phosphorus Magnesium 3.0 H Total Bilirubin AST ALT Alkaline Phosphatase Total Protein Albumin 10/21/18 10/21/18 10/21/18 05:50 05:58 07:08 WBC RBC Hgb Hct MCV MCH MCHC RDW Plt Count MPV Absolute Neuts (auto) Neutrophils % Neutrophils % (Manual) Band Neutrophils % Lymphocytes % Lymphocytes % (Manual) Monocytes % Monocytes % (Manual) Eosinophils % Eosinophils % (Manual) Basophils % Basophils % (Manual) Myelocytes % (Man) Promyelocytes % (Man) Blast Cells % (Manual) Nucleated RBC % Metamyelocytes Hypochromia Platelet Estimate Polychromasia Poikilocytosis Anisocytosis Microcytosis Macrocytosis Sodium 143 Potassium 3.1 L Chloride 94 L Carbon Dioxide > 45 H Anion Gap 3 L BUN 36.6 H Creatinine 0.3 L Est GFR (CKD-EPI)AfAm 143.22 Est GFR (CKD-EPI)NonAf 123.58 POC Glucometer 57 99 Random Glucose 60 L Calcium 8.4 L Phosphorus 2.8 Magnesium 3.0 H Total Bilirubin 0.9 AST 38 H ALT 37 Alkaline Phosphatase 67 Total Protein 5.0 L Albumin 2.5 L HOSPITAL COURSE: Date of Admission:10/09/18 Date of Discharge: 10/21/18 Patient is a 62 year old female with PMHx of NYHA III systolic CHF, sarcoidosis , HTN, diabetes, HLD presents to [facility] with 2 days of difficulty breathing with wheezing. Hospitalization complicated when patient was found to be in septic shock requiring pressors, intubation. She was also noted to be hyperthermic with rectal temp of 107F. She remains in the ICU for further management and remains intubated. - Problems (1) GERD (gastroesophageal reflux disease) Assessment/Plan: c/w IV PPI (2) Pacemaker Assessment/Plan: AV dual paced rhythm with multiple PVCs (3) Prophylactic measure Assessment/Plan: FEN monitor electrolytes PPI DVT lovenox 80mh sq q12 Dispo Transfer to [facility] full code discharge planning (4) Acute on chronic diastolic (congestive) heart failure Assessment/Plan: non-compliant with diuretic therapy off vasoprssive agents and maintaining BP Decr hydrocortisone dose from 50 to 25 BID for 4 more days (5) Hyperlipidemia Assessment/Plan: c/w atorvastatin when no longer NPO (7) Sarcoidosis Assessment/Plan: c/w home dose prednisone after hydrocortisone is completed (8) Status post tricuspid valve repair Code(s): Z98.890 - OTHER SPECIFIED POSTPROCEDURAL STATES (9) Pulmonary embolism Assessment/Plan: recent BL PE on eliquis at home c/w lovenox Code(s): I26.99 - OTHER PULMONARY EMBOLISM WITHOUT ACUTE COR PULMONALE (10) Respiratory failure with hypoxia Assessment/Plan: remains extuabted on HFNC mainatin sat >92% duo nebs PRN (11) DENISHA (acute kidney injury) Assessment/Plan: monitor labs daily renal following (12) Shock Assessment/Plan: -Shock - likely septic shock in addition to cardiogenic - resolved WBC decreased to 16.0 from 19.2 on stress dose steriods on meropenem and Vanco ID following blood cultures repeated and negative care per ICU (13) Troponin I above reference range Assessment/Plan: -Cardiology consultation appreciated. -Patient anticoagulated with Lovenox 80mg subq BID - (14) Metabolic encephalopathy Assessment/Plan: Likely secondary to septic shock - -Head CT reveals no acute intracranial pathology encourage family visitation (15) Admitted to intensive care unit Assessment/Plan: Stab;e to transfer to [facility] (16) Dysphagia Assessment/Plan: Strictly NPO Seen by speech pathology and appreciated - Dysphagia Impressions/Plan Swallowing Skills: Impaired Dysphagia Impressions: Profound Impairment, Suspect Aspiration Recommendations: Other (To reevaluate as pt improves.) - Recommendations Diet Consistency: NPO, Other (NPO including meds) Liquids: NPO Minutes to complete discharge: 45 Discharge Summary Reason For Visit: ACUTE ON CHRONIC CONGESTIVE HEART FAILURE Current Active Problems DENISHA (acute kidney injury) (Acute) Admitted to intensive care unit (Acute) Diabetes (Acute) Dysphagia (Acute) GERD (gastroesophageal reflux disease) (Acute) H/O tricuspid valve repair (Acute) HTN (hypertension) (Acute) Metabolic encephalopathy (Acute) Pacemaker (Acute) Prophylactic measure (Acute) Respiratory failure (Acute) Respiratory failure with hypoxia (Acute) Septic shock (Acute) Shock (Acute) Thrombocytopenia (Acute) Troponin I above reference range (Acute) Acute on chronic diastolic (congestive) heart failure (Chronic) Hospital Course: Patient is a 62 year old female with PMHx of NYHA III systolic CHF, sarcoidosis , HTN, diabetes, HLD presents to [facility] with 2 days of difficulty breathing with wheezing. Hospitalization complicated when patient was found to be in septic shock requiring pressors, intubation. She was also noted to be hyperthermic with rectal temp of 107F. She remains in the ICU for further management and remains intubated. - Problems (1) GERD (gastroesophageal reflux disease) Assessment/Plan: c/w IV PPI (2) Pacemaker Assessment/Plan: AV dual paced rhythm with multiple PVCs (3) Prophylactic measure Assessment/Plan: FEN monitor electrolytes PPI DVT lovenox 80mh sq q12 Dispo Transfer to [facility] full code discharge planning (4) Acute on chronic diastolic (congestive) heart failure Assessment/Plan: non-compliant with diuretic therapy off vasoprssive agents and maintaining BP Decr hydrocortisone dose from 50 to 25 BID for 4 more days (5) Hyperlipidemia Assessment/Plan: c/w atorvastatin when no longer NPO (7) Sarcoidosis Assessment/Plan: c/w home dose prednisone after hydrocortisone is completed (8) Status post tricuspid valve repair Code(s): Z98.890 - OTHER SPECIFIED POSTPROCEDURAL STATES (9) Pulmonary embolism Assessment/Plan: recent BL PE on eliquis at home c/w lovenox Code(s): I26.99 - OTHER PULMONARY EMBOLISM WITHOUT ACUTE COR PULMONALE (10) Respiratory failure with hypoxia Assessment/Plan: remains extuabted on HFNC mainatin sat >92% duo nebs PRN (11) DENISHA (acute kidney injury) Assessment/Plan: monitor labs daily renal following (12) Shock Assessment/Plan: -Shock - likely septic shock in addition to cardiogenic - resolved WBC decreased to 16.0 from 19.2 on stress dose steriods on meropenem and Vanco ID following blood cultures repeated and negative care per ICU (13) Troponin I above reference range Assessment/Plan: -Cardiology consultation appreciated. -Patient anticoagulated with Lovenox 80mg subq BID - (14) Metabolic encephalopathy Assessment/Plan: Likely secondary to septic shock - -Head CT reveals no acute intracranial pathology encourage family visitation (15) Admitted to intensive care unit Assessment/Plan: Stab;e to transfer to [facility] (16) Dysphagia Assessment/Plan: Strictly NPO Seen by speech pathology and appreciated - Dysphagia Impressions/Plan Swallowing Skills: Impaired Dysphagia Impressions: Profound Impairment, Suspect Aspiration Recommendations: Other (To reevaluate as pt improves.) - Recommendations Diet Consistency: NPO, Other (NPO including meds) Condition: Stable - Instructions Diet, Activity, Other Instructions: NPO, speech pathology following and needs repeat MBS. Maintain on HFNC weaning as tolerating to O2 >92%. No vasocactive agents needed to mainatin BP Disposition: TRANSFER ACUTE CARE/OTHER HOSP - Home Medications Comprehensive Discharge Medication List: Ambulatory Orders Acetaminophen Injection [Ofirmev Injection -] 1,000 mg IVPB Q6H PRN vial Albuterol Sulfate 0.5% [Ventolin 0.5% Nebulizing Soln. -] 1 amp NEB Q4H PRN amp 10/21/18 Enoxaparin [Lovenox -] 80 mg SQ BID disp.syrin 10/21/18 Hydrocortisone Sod Succinate [Solu-Cortef -] 25 mg IVPB BID vial 10/21/18 Insulin (Levemir) [Levemir Vial] 15 units SQ HS units 10/21/18 Insulin Sliding Scale [Novolog Vial Sliding Scale -] 1 vial SQ [facility] units 10/21 Metoprolol Tartrate Injection [Lopressor Injection -] 5 mg IVPUSH Q4H-IV vial 10/21/18 Nystatin Cream [Mycostatin Cream -] 1 applic TP BID applic 10/21/18 Pantoprazole Sodium [Protonix IV] 40 mg IVPUSH DAILY vial 10/21/18 Problem List - Problems (1) GERD (gastroesophageal reflux disease) Code(s): K21.9 - GASTRO-ESOPHAGEAL REFLUX DISEASE WITHOUT ESOPHAGITIS (2) Pacemaker Code(s): Z95.0 - PRESENCE OF CARDIAC PACEMAKER (3) Prophylactic measure Code(s): Z29.9 - ENCOUNTER FOR PROPHYLACTIC MEASURES, UNSPECIFIED (4) Acute on chronic diastolic (congestive) heart failure Code(s): I50.33 - ACUTE ON CHRONIC DIASTOLIC (CONGESTIVE) HEART FAILURE (5) Hyperlipidemia Code(s): E78.5 - HYPERLIPIDEMIA, UNSPECIFIED Qualifiers: Hyperlipidemia type: pure hypercholesterolemia Qualified Code(s): E78.00 - Pure hypercholesterolemia, unspecified; E78.0 - Pure hypercholesterolemia (7) Sarcoidosis Code(s): D86.9 - SARCOIDOSIS, UNSPECIFIED (8) Status post tricuspid valve repair Code(s): Z98.890 - OTHER SPECIFIED POSTPROCEDURAL STATES (9) Pulmonary embolism Code(s): I26.99 - OTHER PULMONARY EMBOLISM WITHOUT ACUTE COR PULMONALE (10) Respiratory failure with hypoxia Code(s): J96.91 - RESPIRATORY FAILURE, UNSPECIFIED WITH HYPOXIA (11) DENISHA (acute kidney injury) Code(s): N17.9 - ACUTE KIDNEY FAILURE, UNSPECIFIED (12) Shock Code(s): R57.9 - SHOCK, UNSPECIFIED (13) Troponin I above reference range Code(s): R74.8 - ABNORMAL LEVELS OF OTHER SERUM ENZYMES (14) Metabolic encephalopathy Code(s): G93.41 - METABOLIC ENCEPHALOPATHY (15) Admitted to intensive care unit Code(s): Z78.9 - OTHER SPECIFIED HEALTH STATUS (16) Dysphagia Code(s): R13.10 - DYSPHAGIA, UNSPECIFIED This patient is new to me today: Yes Date on this admission: 10/21/18 Emergency Visit: No Critical Care patient: Yes Total Critical Care Time (in minutes): 30 Critical Care Statement: The care of this patient involved high complexity decision making to prevent further life threatening deterioration of the patient 's condition and/or to evaluate & treat vital organ system(s) failure or risk of failure. - Discharge Referral Referred to [facility] No
[2018-10-21 08:14] VITALS: TEMP 98.1
[2018-10-21 08:31] LABS: ANISOCYTOSIS 2+; MACROCYTOSIS 0; OVALOCYTE 1+; PLATELET ESTIMATE DECREASED; TEAR DROP CELLS 1+
[2018-10-21] MEDS: KCL 10 MEQ IVPB 10 MEQ/100 ML INFUS.BAG IVPB SCH ×3 (08:54→11:17)
[2018-10-21] MEDS: ENOXAPARIN NA (PORCINE) 80 MG/0.8 ML DISP.SYRIN SQ SCH (09:34)
[2018-10-21] MEDS: PANTOPRAZOLE SODIUM 40 MG VIAL IVPUSH SCH (09:34)
[2018-10-21] MEDS: HYDROCORTISONE SOD SUCCINATE 100 MG/2 ML VIAL IVPB SCH (09:35)
--- NOTE | 2018-10-21 10:32 | EKG ---
Test Reason : Blood Pressure : / mmHG Vent. Rate : 104 BPM Atrial Rate : 104 BPM P-R Int : 000 ms QRS Dur : 162 ms QT Int : 434 ms P-R-T Axes : 006 -38 132 degrees QTc Int : 570 ms Ventricular-paced rhythm WITH OCCASIONAL PREMATURE VENTRICULAR COMPLEXES ABNORMAL ECG WHEN COMPARED WITH ECG OF 13-OCT-2018 21:45, PREMATURE VENTRICULAR COMPLEXES ARE NOW PRESENT Confirmed by DANDY ALONZO MD ([id number]) on 10/21/2018 10:32:11 AM Referred By: Confirmed By:DANDY ALONZO MD
[2018-10-21] MEDS ORDERED: FUROSEMIDE 40 MG/4 ML INJECTABLE VIAL IVPUSH ONE (11:15)
--- NOTE | 2018-10-21 11:20 | PN ---
Progress Note, Physician History of Present Illness: awake alert still requiring resp support failed on high flow now on venti mask - Current Medication List Current Medications: Active Medications Acetaminophen (Ofirmev Injection -) 1,000 mg IVPB Q6H PRN PRN Reason: FEVER Last Admin: 10/19/18 04:30 Dose: 1,000 mg Albuterol Sulfate (Ventolin 0.5% -) 1 amp NEB Q4H PRN PRN Reason: SHORT OF BREATH/WHEEZING Last Admin: 10/18/18 20:48 Dose: 1 amp Enoxaparin Sodium (Lovenox -) 80 mg SQ BID [facility] Last Admin: 10/21/18 09:34 Dose: 80 mg Fludrocortisone Acetate (Florinef -) 0.05 mg PO DAILY [facility] Last Admin: 10/20/18 14:24 Dose: Not Given Amino Acids (Clinimix -) 1,000 mls @ 42 mls/hr IV Q24H [facility] Insulin Aspart (Novolog Vial Sliding Scale -) 1 vial SQ ACHS [facility]; Protocol Last Admin: 10/21/18 06:04 Dose: Not Given Insulin Detemir (Levemir Vial) 15 units SQ HS [facility] Last Admin: 10/20/18 21:14 Dose: 15 units Metoprolol Tartrate (Lopressor Injection -) 5 mg IVPUSH Q4H-IV [facility] Last Admin: 10/21/18 09:46 Dose: Not Given Multivitamins/Minerals (Infuvite Adult -) 10 ml IV DAILY@1900 [facility] Nystatin (Mycostatin Cream -) 1 applic TP BID [facility] Last Admin: 10/20/18 21:15 Dose: 1 applic Pantoprazole Sodium (Protonix Iv) 40 mg IVPUSH DAILY [facility] Last Admin: 10/21/18 09:34 Dose: 40 mg Tolterodine Tartrate (Detrol -) 2 mg PO DAILY [facility] Last Admin: 10/20/18 14:24 Dose: Not Given - Objective Vital Signs: Vital Signs Temperature 98.1 F 10/21/18 10:00 Pulse Rate 88 10/21/18 10:00 Respiratory Rate 20 10/21/18 10:00 Blood Pressure 112/60 10/21/18 10:00 O2 Sat by Pulse Oximetry (%) 100 10/20/18 19:40 Constitutional: Yes: Calm, Mild Distress Cardiovascular: Yes: Tachycardia Respiratory: Yes: On Venti-Mask, Poor Air Entry Gastrointestinal: Yes: Normal Bowel Sounds, Soft Musculoskeletal: Yes: WNL Extremities: Yes: WNL Neurological: Yes: Alert, Oriented Psychiatric: Yes: Alert, Oriented Labs: CBC, BMP 10/21/18 05:50 10/21/18 05:50 Assessment/Plan Problem List - Problems (1) GERD (gastroesophageal reflux disease) Code(s): K21.9 - GASTRO-ESOPHAGEAL REFLUX DISEASE WITHOUT ESOPHAGITIS (3) HTN (hypertension) Code(s): I10 - ESSENTIAL (PRIMARY) HYPERTENSION (4) Pacemaker Code(s): Z95.0 - PRESENCE OF CARDIAC PACEMAKER (5) Respiratory failure with hypoxia Code(s): J96.91 - RESPIRATORY FAILURE, UNSPECIFIED WITH HYPOXIA (6) Shock Code(s): R57.9 - SHOCK, UNSPECIFIED (7) Acute on chronic diastolic (congestive) heart failure Code(s): I50.33 - ACUTE ON CHRONIC DIASTOLIC (CONGESTIVE) HEART FAILURE (8) Hyperlipidemia Code(s): E78.5 - HYPERLIPIDEMIA, UNSPECIFIED Qualifiers: Hyperlipidemia type: pure hypercholesterolemia Qualified Code(s): E78.00 - Pure hypercholesterolemia, unspecified; E78.0 - Pure hypercholesterolemia (9) Pulmonary embolism Code(s): I26.99 - OTHER PULMONARY EMBOLISM WITHOUT ACUTE COR PULMONALE (11) Sarcoidosis Code(s): D86.9 - SARCOIDOSIS, UNSPECIFIED (12) Status post tricuspid valve repair Code(s): Z98.890 - OTHER SPECIFIED POSTPROCEDURAL STATES Assessment/Plan 62 y.o. female with PMH of b/l PE diagnosed 09/10/18 on Eliquis, systolic CHF, s/ p PPM, tricuspid repair and bioprosthetic MV repair, Sarcoidosis, hemorrhagic CVA, COPD, HTN, HLD, GERD, s/p cholecystectomy and LT hip surgery initially presented for c/o progressive SOB over the past 2 wks with weakness. Has been reportedly noncompliant with taking Lasix but taking Eliquis. Was transferred to the ICU for respiratory failure requiring intubation, hypotension, hyperthermia. Shock - likely Septic shock in addition to Cardiogenic Acute hypoxemic respiratory failure s/p intubation Hyperthermia B/L PE - r/o new embolism Sarcoidosis Hx of hemorrhagic CVA s/p AICD s/p tricuspid valve repair, bioprosthetic MV replacement Hx of UTI recently on antibiotics patient still intubated clear cut source still not present lactic acid still high plan continue current mgmt monitor wbc rest as per the team and icu cx report noted nutrition stable off of abx will watch resp support cc 40 min wbc trending down
[2018-10-21 12:01] VITALS: BP 120/68; PULSE 103
--- NOTE | 2018-10-21 12:01 | PN ---
Teaching Attending Note Name of Resident: Travon Pop ATTENDING PHYSICIAN STATEMENT I saw and evaluated the patient. I reviewed the resident's note and discussed the case with the resident. I agree with the resident's findings and plan as documented. SUBJECTIVE: Pt seen and examined in the ICU. Breathing better today. Now on ventimask 40% FiO2. Voice slightly improved. OBJECTIVE: Vital Signs Period Temp Pulse Resp BP Sys/Zayas Pulse Ox Last 24 Hr 97.5 F-98.1 F 80-126 14-23 88-134/44-96 100-100 Intake & Output 10/18/18 10/19/18 10/20/18 10/21/18 23:59 23:59 23:59 23:59 Intake Total 1576.5 400 423 294 Output Total 650 2300 1300 500 Balance 926.5 -1900 -877 -206 Weight 84.958 kg 84.425 kg 81.873 kg 79.464 kg Gen: less tachypneic Heart: RRR Lung: decreased breath sounds at the bases Abd: soft, nontender Ext: trace edema CBC, BMP 10/21/18 05:50 10/21/18 05:50 Active Medications Acetaminophen (Ofirmev Injection -) 1,000 mg IVPB Q6H PRN PRN Reason: FEVER Last Admin: 10/19/18 04:30 Dose: 1,000 mg Albuterol Sulfate (Ventolin 0.5% -) 1 amp NEB Q4H PRN PRN Reason: SHORT OF BREATH/WHEEZING Last Admin: 10/18/18 20:48 Dose: 1 amp Enoxaparin Sodium (Lovenox -) 80 mg SQ BID [facility] Last Admin: 10/21/18 09:34 Dose: 80 mg Fludrocortisone Acetate (Florinef -) 0.05 mg PO DAILY [facility] Last Admin: 10/20/18 14:24 Dose: Not Given Amino Acids (Clinimix -) 1,000 mls @ 42 mls/hr IV Q24H [facility] Metoprolol Tartrate (Lopressor Injection -) 5 mg IVPUSH Q4H-IV [facility] Last Admin: 10/21/18 09:46 Dose: Not Given Multivitamins/Minerals (Infuvite Adult -) 10 ml IV DAILY@1900 [facility] Nystatin (Mycostatin Cream -) 1 applic TP BID [facility] Last Admin: 10/20/18 21:15 Dose: 1 applic Pantoprazole Sodium (Protonix Iv) 40 mg IVPUSH DAILY [facility] Last Admin: 10/21/18 09:34 Dose: 40 mg Tolterodine Tartrate (Detrol -) 2 mg PO DAILY [facility] Last Admin: 10/20/18 14:24 Dose: Not Given ASSESSMENT AND PLAN: Acute Hypoxic Respiratory Failure improving Shock of unclear source - Septic vs Cardiogenic h/o Bilateral Pulmonary Emboli Pulmonary Sarcoidosis Atrial Fibrillation s/p PPM Thrombocytopenia h/o Intracranial Hemorrhage - completed antibiotics - reculture if febrile - off pressors, maintain MAP >65 - tapered off stress dose steroids - rate control - continue anticoagulation - lasix once today - O2 to keep SpO2 >90% - aspiration precautions - DVT/GI prophylaxis - continue ICU monitoring for tenuous respiratory status - for transfer to LTAC critical care time spent in reviewing chart, evaluating patient and formulating plan 35 min
--- NOTE | 2018-10-21 12:29 | PN ---
Progress Note, [employer] - Note Progress Note: Selected Entries 10/21/18 10/21/18 10/21/18 01:28 08:00 10:00 Lunch Temperature 97.5 F L 98.1 F 98.1 F 10/21/18 11:18 Lunch NPO Temperature Laboratory Tests 10/20/18 10/21/18 05:28 05:50 WBC 16.0 H 12.7 H Voice remains Aphonic.Alert. Flat affect. NPO. Transfer to [facility].
--- NOTE | 2018-10-21 12:54 | PN ---
Physical Exam: SUBJECTIVE: Patient seen and examined at bedside this AM. No acute events overnight. Pt sent to LTAC on ventimask. OBJECTIVE: Vital Signs Period Temp Pulse Resp BP Sys/Zayas Pulse Ox Last 24 Hr 97.5 F-98.1 F 80-126 14-23 88-134/44-96 100-100 GENERAL: The patient is awake, alert, and fully oriented, in no acute distress. HEAD: Normal with no signs of trauma. NECK: supple. LUNGS: Breath sounds equal, coarse breath sounds b/l, no wheezes, no crackles, some accessory muscle use. HEART: Regular rate and rhythm, S1, S2 without murmur, rub or gallop. ABDOMEN: Soft, nontender, nondistended, no guarding, no rebound. EXTREMITIES: warm, well-perfused, no edema. PSYCH: Normal mood, normal affect. SKIN: Warm, dry. Laboratory Results - last 24 hr 10/20/18 10/20/18 10/20/18 16:15 17:00 21:00 WBC RBC Hgb Hct MCV MCH MCHC RDW Plt Count MPV Absolute Neuts (auto) Neutrophils % Neutrophils % (Manual) Band Neutrophils % Lymphocytes % Lymphocytes % (Manual) Monocytes % Monocytes % (Manual) Eosinophils % Eosinophils % (Manual) Basophils % Basophils % (Manual) Myelocytes % (Man) Promyelocytes % (Man) Blast Cells % (Manual) Nucleated RBC % Metamyelocytes Hypochromia Platelet Estimate Polychromasia Poikilocytosis Basophilic Stippling Anisocytosis Microcytosis Macrocytosis Tear Drop Cells Ovalocytes Acanthocytes (Spur) Schistocytes Sodium 141 Potassium 4.1 Chloride 91 L Carbon Dioxide 44 H Anion Gap 6 L BUN 33.4 H Creatinine 0.5 L Est GFR (CKD-EPI)AfAm 121.07 Est GFR (CKD-EPI)NonAf 104.46 POC Glucometer 120 115 Random Glucose 121 H Calcium 8.7 Phosphorus Magnesium 3.0 H Total Bilirubin AST ALT Alkaline Phosphatase Total Protein Albumin 10/21/18 10/21/18 10/21/18 05:50 05:50 05:58 WBC 12.7 H RBC 3.11 L Hgb 8.2 L Hct 26.2 L MCV 84.2 MCH 26.5 MCHC 31.5 L RDW 19.1 H Plt Count 89 L MPV 9.1 Absolute Neuts (auto) 11.7 H Neutrophils % 91.8 H Neutrophils % (Manual) 88.0 H Band Neutrophils % 2.0 Lymphocytes % 2.5 L D Lymphocytes % (Manual) 4.0 L D Monocytes % 5.5 Monocytes % (Manual) 6 D Eosinophils % 0.0 D Eosinophils % (Manual) 0.0 D Basophils % 0.2 Basophils % (Manual) 0.0 Myelocytes % (Man) 0 Promyelocytes % (Man) 0 Blast Cells % (Manual) 0 Nucleated RBC % 0 Metamyelocytes 0 Hypochromia 0 Platelet Estimate Decreased Polychromasia 1+ Poikilocytosis 1+ Basophilic Stippling 1+ Anisocytosis 2+ Microcytosis 1+ Macrocytosis 0 Tear Drop Cells 1+ Ovalocytes 1+ Acanthocytes (Spur) 1+ Schistocytes 1+ Sodium 143 Potassium 3.1 L Chloride 94 L Carbon Dioxide > 45 H Anion Gap 3 L BUN 36.6 H Creatinine 0.3 L Est GFR (CKD-EPI)AfAm 143.22 Est GFR (CKD-EPI)NonAf 123.58 POC Glucometer 57 Random Glucose 60 L Calcium 8.4 L Phosphorus 2.8 Magnesium 3.0 H Total Bilirubin 0.9 AST 38 H ALT 37 Alkaline Phosphatase 67 Total Protein 5.0 L Albumin 2.5 L 10/21/18 10/21/18 10/21/18 07:08 11:20 11:47 WBC RBC Hgb Hct MCV MCH MCHC RDW Plt Count MPV Absolute Neuts (auto) Neutrophils % Neutrophils % (Manual) Band Neutrophils % Lymphocytes % Lymphocytes % (Manual) Monocytes % Monocytes % (Manual) Eosinophils % Eosinophils % (Manual) Basophils % Basophils % (Manual) Myelocytes % (Man) Promyelocytes % (Man) Blast Cells % (Manual) Nucleated RBC % Metamyelocytes Hypochromia Platelet Estimate Polychromasia Poikilocytosis Basophilic Stippling Anisocytosis Microcytosis Macrocytosis Tear Drop Cells Ovalocytes Acanthocytes (Spur) Schistocytes Sodium Potassium Chloride Carbon Dioxide Anion Gap BUN Creatinine Est GFR (CKD-EPI)AfAm Est GFR (CKD-EPI)NonAf POC Glucometer 99 63 84 Random Glucose Calcium Phosphorus Magnesium Total Bilirubin AST ALT Alkaline Phosphatase Total Protein Albumin Active Medications Generic Name Dose Route Start Last Admin Trade Name Freq PRN Reason Stop Dose Admin Acetaminophen 1,000 mg 10/14/18 16:14 10/19/18 04:30 Ofirmev Injection - IVPB 1,000 mg Q6H PRN Administration FEVER Albuterol Sulfate 1 amp 10/17/18 13:44 10/18/18 20:48 Ventolin 0.5% - NEB 1 amp Q4H PRN Administration SHORT OF BREATH/WHEEZING Enoxaparin Sodium 80 mg 10/19/18 22:00 10/21/18 09:34 Lovenox - SQ 80 mg BID [facility] Administration Fludrocortisone Acetate 0.05 mg 10/10/18 11:00 10/20/18 14:24 Florinef - PO Not Given DAILY [facility] Amino Acids 1,000 mls @ 42 mls/hr 10/21/18 19:43 Clinimix - IV Q24H [facility] Metoprolol Tartrate 5 mg 10/20/18 18:15 10/21/18 09:46 Lopressor Injection - IVPUSH Not Given Q4H-IV [facility] Multivitamins/Minerals 10 ml 10/21/18 19:00 Infuvite Adult - IV DAILY@1900 [facility] Nystatin 1 applic 10/14/18 10:00 10/20/18 21:15 Mycostatin Cream - TP 1 applic BID [facility] Administration Pantoprazole Sodium 40 mg 10/11/18 12:15 10/21/18 09:34 Protonix Iv IVPUSH 40 mg DAILY [facility] Administration Tolterodine Tartrate 2 mg 10/10/18 10:00 10/20/18 14:24 Detrol - PO Not Given DAILY [facility] ASSESSMENT/PLAN: This is a 63 y/o F w/ a PMH of CHF, HLD, HTN, sarcoidosis, DM, h/o PE on AC in ICU for acute on chronic diastolic heart failure and septic shock. Patient extubated, off pressors, and now on HFNC at FiO2 60%. Per ID, will stop IV abx. NEURO: s/p pressors and extubation - off sedation, off pressors CV: acute on chronic diastolic heart failure - off pressors and maintaining BP - maintain MAP >65 - lopressor for HR > 110 - Decr hydrocortisone dose from 50 to 25 BID for 4 more days - cardiology recs appreciated - pt may need ALETHEA if wbc continues to rise and she continues to be febrile 10/20/18 16:39: Pt had an asymptomatic run of self resolving VT. Lasted about 6 seconds. Pt denies chest pain/palpitations. Pt maintained BP, mental status, and saturation. Repeated BMP and Mg - K4.1, Mg 3.0. Repeat EKG ordered. PULM: s/p extubation - pt doing well on ventimask at 50%, continue - monitor work of breathing - lungs clear today - concern regarding contraction alkalosis, one dose lasix given prior to leaving. - albuterol prn - phonation slightly improving as vocal cords heal Heme-> thrombocytopenia - still continuing AC for the AF. RENAL: ?contraction alkalosis - Barclay in place draining well - renal recs appreciated; consider blood gas, K repletion, monitor lytes, BP - gave a one time lasix dose before she left - Bicarb >45, BUN/Cr 36.6/0.3 FENGI: - will maintain NPO - Protonix - monitor electrolytes - K 3.1; repleted w/ 10mEQ x3 ENDO: NIDDM - levemir 15U - AISS ID: septic shock - ID recs appreciated - DC meropenam - Cx NGTD DVT PPX: LVX 80mg BID for afib anticoagulation even though pt is thrombocytopenic. LINES/TUBES/DRAINS: Left Central line placed 10/15/18, day 5 removed today for transfer. Visit type - Emergency Visit Emergency Visit: Yes ED Registration Date: 10/09/18 Care time: The patient presented to the Emergency Department on the above date and was hospitalized for further evaluation of their emergent condition. - New Patient This patient is new to me today: No - Critical Care Critical Care patient: Yes Total Critical Care Time (in minutes): 35 Critical Care Statement: The care of this patient involved high complexity decision making to prevent further life threatening deterioration of the patient 's condition and/or to evaluate & treat vital organ system(s) failure or risk of failure. - Discharge Referral Referred to [facility] No ATTENDING PHYSICIAN STATEMENT I saw and evaluated the patient. I reviewed the resident's note and discussed the case with the resident. I agree with the resident's findings and plan as documented. SUBJECTIVE: OBJECTIVE: ASSESSMENT AND PLAN:
[2018-10-21] MEDS ORDERED: MULTIVIT INJ. ADULT COMBO WITH VIT K 1 COMBO 10 ML VIAL IV SCH (19:00)
[2018-10-21] MEDS ORDERED: AMINO ACIDS 4.25%/D5W 1,000 ML IV SCH (19:43)
== END 2018-10-21 12:30 | disposition short-term general hospital (02) | DRG 870 ==
LOC: JER 10:46 → JERBED 11:46 → J4W 20:51 → JICU 10-10 06:55
PROVIDERS: ATTEND Nurse Practitioner Acute Care
PROC: 5A1955Z Respiratory Ventilation, Greater than 96 Consecutive Hours (ICD-10-PCS; principal; 2018-10-09)
PROC: 3E0F7GC Introduction of Other Therapeutic Substance into Respiratory Tract, Via Natural or Artificial Opening (ICD-10-PCS; 2018-10-09)
PROC: 05HM33Z Insertion of Infusion Device into Right Internal Jugular Vein, Percutaneous Approach (ICD-10-PCS; 2018-10-10)
PROC: B513ZZA Fluoroscopy of Right Jugular Veins, Guidance (ICD-10-PCS; 2018-10-10)
PROC: B543ZZA Ultrasonography of Right Jugular Veins, Guidance (ICD-10-PCS; 2018-10-10)
PROC: 0BH17EZ Insertion of Endotracheal Airway into Trachea, Via Natural or Artificial Opening (ICD-10-PCS; 2018-10-10)
PROC: 5A1945Z Respiratory Ventilation, 24-96 Consecutive Hours (ICD-10-PCS; 2018-10-10)
PROC: 05HN33Z Insertion of Infusion Device into Left Internal Jugular Vein, Percutaneous Approach (ICD-10-PCS; 2018-10-15)
PROC: B514ZZA Fluoroscopy of Left Jugular Veins, Guidance (ICD-10-PCS; 2018-10-15)
PROC: B544ZZA Ultrasonography of Left Jugular Veins, Guidance (ICD-10-PCS; 2018-10-15)
DX: A41.9 Sepsis, unspecified organism (principal); J96.01 Acute respiratory failure with hypoxia; R65.21 Severe sepsis with septic shock; G93.41 Metabolic encephalopathy; I50.23 Acute on chronic systolic (congestive) heart failure; J18.9 Pneumonia, unspecified organism; N17.9 Acute kidney failure, unspecified; I43 Cardiomyopathy in diseases classified elsewhere; I13.0 Hypertensive heart and chronic kidney disease with heart failure and stage 1 through stage 4 chronic kidney disease, or unspecified chronic kidney disease; E87.1 Hypo-osmolality and hyponatremia; E87.3 Alkalosis; D69.6 Thrombocytopenia, unspecified; I95.9 Hypotension, unspecified; E87.6 Hypokalemia; N18.9 Chronic kidney disease, unspecified; J44.9 Chronic obstructive pulmonary disease, unspecified; D86.0 Sarcoidosis of lung; I48.0 Paroxysmal atrial fibrillation; R74.8 Abnormal levels of other serum enzymes; Z91.14 Patient's other noncompliance with medication regimen; E78.5 Hyperlipidemia, unspecified; G72.9 Myopathy, unspecified; G62.9 Polyneuropathy, unspecified; Z86.711 Personal history of pulmonary embolism; Z79.01 Long term (current) use of anticoagulants; K21.9 Gastro-esophageal reflux disease without esophagitis; Z95.4 Presence of other heart-valve replacement; Z86.73 Personal history of transient ischemic attack (TIA), and cerebral infarction without residual deficits; Z87.891 Personal history of nicotine dependence; E66.9 Obesity, unspecified; Z68.34 Body mass index [BMI] 34.0-34.9, adult; Z95.810 Presence of automatic (implantable) cardiac defibrillator
CPT/HCPCS: 31500; 36415; 36600; 70450-TC; 71045-TC-FY; 71275-TC; 74177-TC; 80048; 80053; 81003; 82272; 82375; 82550; 82553; 82565; 82803; 82962; 83050; 83605; 83735; 83874; 83880; 83930; 83935; 84100; 84300; 84484; 84540; 85025; 85027; 85651; 85730; 86140; 87040; 87070; 87086; 87186; 87205; 87899; 93005; 93010; 93306-TC; 93971-TC; 94002; 94640; 94660; 97162-GP; 99284-25; J0131; J1644